=== PATIENT | female | born 1960 | race Caucasian/White ===

== ENCOUNTER → 2022-07-16 | Outpatient (CLI) | payer OTHER, SELFPAY ==
[2022-07-16 14:29] LABS: EXAGEN MAILED SPECIMEN
[2022-07-16 15:42] LABS: Absolute Lymphocyte Count 1.44 X10^3/uL (0.83-4.51); Absolute Neutrophil Count 2.2 X10^3/uL (2.0-7.7); Basophil# 0.03 X10^3/uL; Basophil% 0.7 % (0-1); Eosinophil# 0.16 X10^3/uL; Hematocrit 39.7 % (37-47); Hemoglobin 13.5 g/dL (12.0-15.0); Lymphocyte # 1.44 X10^3/ul (0.83-4.51); Lymphocyte % 35.7 % (19-41); Mean Corpuscular Hgb 30.1 pg (27.0-32.0); Mean Corpuscular Volume 88.6 fL (81-99); Mean Platelet Vol. 11.2 fl (6.2-12.0); Monocyte# 0.24 X10^3/uL; NRBC Flagged by Analyzer 0 % (0-5); Neutrophil # 2.15 X10^3/uL (2.7-7.7); Neutrophil % 53.4 % (47-70); Platelet Count 169 K/mm3 (150-450); RBC Distribution Width CV 11.9 % (11.6-14.6); RBC Distribution Width SD 38.5 fl (35.1-43.9); Red Blood Count 4.48 M/mm3 (4.2-5.4)
[2022-07-16 15:47] LABS: Prothrombin Time (Protime)PT. 12.8 SECONDS (11.7-14.9)
[2022-07-16 15:48] LABS: Partial Thromboplast Time 25.1 Seconds (24.1-36.2)
[2022-07-16 16:01] LABS: Erythrocyte Sedimentation Rate 11 mm/hr (0-30)
[2022-07-16 16:15] LABS: Color, Urine Yellow (Yellow); Glucose, Dipstick Normal (Normal); Ketone-Dipstick Negative (Negative); Leukocyte Esterase-Dipstick Negative /ul (Negative); Nitrite-Dipstick Negative (Negative); Occult Blood-Urine Negative /ul (Negative); Protein-Dipstick Negative (Negative); Urine Bilirubin Dipstick Negative (Negative); Urine Clarity Clear (Clear); Urine Urobilinogen Normal (Normal); Urine pH 6.5 (5.0 - 8.0)
[2022-07-16 16:32] LABS: ALB/GLOB Ratio 1.2 RATIO (0.9-2.4); AST(SGOT) 17 U/L (15-37); Alanine Aminotransfer ALT/SGPT 20 U/L (13-56); Albumin, Serum 3.8 g/dL (3.2-5.0); Alkaline Phosphatase 73 U/L (45-117); Anion Gap 7 (5-15); BUN 13 mg/dL (7-18); BUN/Creat Ratio 15.3 RATIO (10-20); CRP < 2.90 mg/L (0.0-3.0); Calcium,Total 9.3 mg/dL (8.5-10.1); Chloride 108 mmol/L (98-107); Creatinine, Serum 0.85 mg/dL (0.55-1.02); EST Glomerular Filtration Rate 72 mL/min (>60); Est Glom Filt Rate - Afr Amer 87 mL/min (>60); Globulin 3.2 g/dL (2.2-4.2); Glucose 97 mg/dL (74-106); Potassium 4.3 mmol/L (3.5-5.1); Protein, Urine (Random) < 6.0 mg/dL (<11.9); Sodium Level 140 mmol/L (136-145)
[2022-07-16 17:01] LABS: Hepatitis B Surface Antibody Reactive; Hepatitis B Surface Antigen Non-Reactive (Nonreactive); Hepatitis C Antibody Non-Reactive (Nonreactive)
[2022-07-18 17:07] LABS: Dilute Prothrombin Time (dPT) 41.8 sec (0.0-47.6); Hexagonal Phase Phospholipid 10 sec (0-11); Thrombin Time 16.6 sec (0.0-23.0); dPT Confirm Ratio 1.09 Ratio (0.00-1.34)
[2022-07-19 17:18] LABS: Thrombin Time 16.6 sec (0.0-23.0)
[2022-07-19 17:22] LABS: Interpretation Comment: (.); PTT-LA 41.1 sec (0.0-43.5)
== END | disposition home or self-care (01) ==
PROVIDERS: PCP Family Medicine; Referring Provider Internal Medicine Rheumatology; Visit Provider Internal Medicine Rheumatology
DX: M06.4 Inflammatory polyarthropathy (principal); R76.8 Other specified abnormal immunological findings in serum
CPT/HCPCS: 36415; 80053; 81002; 82570; 84156; 85025; 85598; 85610; 85652; 85670; 85730; 86140; 86706; 86803; 87340

== ENCOUNTER 2025-01-18 07:46 | Emergency (ER) | payer MEDICARE, OTHER, SELFPAY ==
[2025-01-18 07:47] VITALS: BP 185/77; PULSE 81; RESP 18; TEMP 36.6; O2SAT 100
--- NOTE | 2025-01-18 08:06 | EX.ED.DYSGE1 ---
HPI History of Present Illness Chief Complaint: Nausea/Vomiting Narrative Narrative: 64-year-old female past medical history of of diverticulosis and gastroparesis/irritable bowel presents with nausea and vomiting that she has had since 430 yesterday evening. Her partner states that she made dinner last night and used olive oil mixed with vegetables. They state that sometimes greasy foods can set off her gastroparesis. She has had multiple episodes of emesis and is now currently dry heaving. She states she is not having any abdominal pain, and she had a large bowel movement earlier, no diarrhea, no fevers or chills. She is extremely nauseated. She has ondansetron at home which is ineffective in treating her nausea. No exacerbating or alleviating factors. She states she has had to go to the emergency department previously when she lived in [place] and has received Haldol in the past. That has been helpful to her. She has not established with any primary care provider in the area as of yet. She presents mainly because of the nausea and dry heaving. She denies any chest pain or shortness of breath or other symptoms. [facility] Medical History Right shoulder pain Home Medications ?Medication ?Instructions ?Recorded ?Last Taken ?Type escitalopram oxalate 20 mg tablet 20 mg PO DAILY 10/07/23 Unknown History (Lexapro) hydroxychloroquine 200 mg tablet 200 mg PO DAILY 10/07/23 Unknown History (Plaquenil) hydroxyzine HCl 10 mg tablet 10 mg PO ONCE 10/07/23 Unknown History levothyroxine 88 mcg capsule 88 mcg PO DAILY 10/07/23 Unknown History losartan 25 mg tablet 25 mg PO DAILY 10/07/23 Unknown History promethazine 25 mg rectal 25 mg IN Q6H PRN nausea and 01/18/25 Unknown Rx suppository vomiting #12 ea Allergy/AdvReac Type Severity Reaction Status Date / Time clindamycin AdvReac Other Verified 01/18/25 07:49 Penicillins AdvReac Other Verified 01/18/25 07:49 Sulfa (Sulfonamide AdvReac Other Verified 01/18/25 07:49 Antibiotics) Family History Father Hypertension CVA (cerebral vascular accident) Myocardial infarction Arthritis Mother Arthritis Cancer Sister Hypertension Arthritis Cancer Surgical History H/O thumb surgery H/O wrist surgery Social History household members: significant other Smoking Status: Former smoker alcohol intake: never what type of physical activity do you participate in: walking ROS ROS ED ROS Narrative Review of systems positive for nausea, vomiting, and dry heaving. No fevers or chills, no problems with bowel movements, no diarrhea. No hematemesis. EXAM Physical Exam Narrative Exam Narrative: Afebrile. Vital signs noted. Nontoxic-appearing. Cardiovascular examination reveals a regular rate and rhythm. Positive murmur. Lungs clear to auscultation bilaterally. Abdomen is soft and nontender without guarding or rebound. Positive bowel sounds. Neurological examination nonfocal, nonlateralizing. Slightly tacky mucous membranes orally. Const Vital Signs: 01/18/25 07:47 01/18/25 10:09 01/18/25 12:46 Temperature 97.9 F 98.8 F Temperature Source Temporal Oral Pulse Rate 81 77 97 Respiratory Rate 18 14 Blood Pressure 185/77 H 182/71 H 158/73 H Blood Pressure Mean 113 108 101 Pulse Ox 100 97 Oxygen Delivery Method Room Air Room Air MDM MDM MDM Narrative Medical decision making narrative: The differential diagnosis includes but not limited to gastroparesis versus irritable bowel syndrome versus pancreatitis versus diverticulitis versus bowel obstruction. History and physical does not support bowel obstruction. I do not feel that she needs any imaging currently. With concern for dehydration, she will be bolused normal saline and CBC, CMP, and lipase will be checked to help rule out pancreatitis. I reviewed her laboratory work and she has normal white count of 6.7 with hemoglobin 14.8, hematocrit 41.5, platelet count 248. CMP is significant for slightly elevated anion gap with BUN of 20 and creatinine 0.93. Glucose slightly elevated at 209. No think she has diabetic ketoacidosis. AST slightly elevated at 39 with ALT at 41 and alk phos 120 which may be from her vomiting. Lipase is normal at 32 so I doubt pancreatitis. She is not having abdominal pain so I do not feel that imaging is indicated. She states this feels more like her gastroparesis with continued nausea. Through shared decision making initially she was administered ondansetron intravenously which was not helpful. She was then administered 2 mg of Ativan which helped slightly. She was then administered Benadryl and chlorpromazine. Upon repeat examination, she has no dry heaving. She feels well enough to be discharged. I discussed with her other antiemetics that she only has ondansetron, and she would like Phenergan suppositories. She was referred back to her primary care provider and to gastroenterology. She and her partner are agreeable to discharge and strict return instructions were reviewed. She is motivated for discharge. Disposition is discharged home in stable condition. History & Record Review Discussion w/independent historian: Patient and Significant other (Partner) Additional record(s) reviewed:: No prior records (No prior ED visits, seen by orthopedics for shoulder pain.) Lab Data Attestation: I reviewed the patient's lab results. Labs: Laboratory Results - last 24 hr 01/18/25 08:22 WBC 6.7 RBC 5.02 Hgb 14.8 Hct 41.5 MCV 82.7 MCH 29.5 MCHC 35.7 RDW Std Deviation 39.6 RDW Coeff of Jaimie 13.2 Plt Count 248 MPV 10.1 Immature Gran % (Auto) 0.500 Neut % (Auto) 89.8 H Lymph % (Auto) 6.9 L Bullock % (Auto) 2.6 Eos % (Auto) 0.0 Baso % (Auto) 0.2 Absolute Neuts (auto) 6.0 Absolute Lymphs (auto) 0.46 L Nucleated RBC % 0 Sodium 141 Potassium 4.0 Chloride 98 Carbon Dioxide 22.5 Anion Gap 20 H BUN 20 H Creatinine 0.93 Est GFR (MDRD) Non-Af 69 BUN/Creatinine Ratio 21.9 H Glucose 209 H Calcium 10.3 Total Bilirubin 0.43 AST 39 H ALT 41 H Alkaline Phosphatase 120 H Total Protein 8.3 Albumin 5.0 H Globulin 3.3 Albumin/Globulin Ratio 1.5 Lipase 32 Discharge Plan Triage Chief Complaint: Nausea/Vomiting ED Provider: Ulysses Christian Dx/Rx/DC Orders Clinical Impression: Nausea and vomiting, Gastroparesis Instructions: Gastroparesis, ED Vomiting (Adult) Prescriptions: New promethazine 25 mg suppository 25 mg IN Q6H PRN (Reason: nausea and vomiting) Qty: 12 0RF No Action escitalopram oxalate [Lexapro] 20 mg tablet 20 mg PO DAILY losartan 25 mg tablet 25 mg PO DAILY levothyroxine 88 mcg capsule 88 mcg PO DAILY hydroxyzine HCl 10 mg tablet 10 mg PO ONCE hydroxychloroquine [Plaquenil] 200 mg tablet 200 mg PO DAILY Primary Care Provider: Sabine Power Referrals: Tomas Marroquin DO [Med Staff - Active Staff] - As soon as possible Sabine Power, PA-C [Primary Care Provider] - As soon as possible Activity Restrictions/Additional Instructions: Phenergan suppositories as directed. Return with abdominal pain, fever, new or worsening symptoms. Follow-up with gastroenterology as soon as possible. Print Language: Pashto Disposition Disposition: Home, Self Care
[2025-01-18] MEDS: 0.9% Normal Saline (1000mL) 1,000 ML 1000 ML IV (08:20)
[2025-01-18 08:44] LABS: Hematocrit 41.5 % (37-47); Hemoglobin 14.8 g/dL (12.0-15.0); Immature Granulocytes Count 0.030 X10^3/uL (0.0-0.0); Mean Corp Hgb Conc 35.7 g/dL (32-36); Mean Corpuscular Volume 82.7 fL (81-99); Mean Platelet Vol. 10.1 fl (6.2-12.0); NRBC Flagged by Analyzer 0 % (0-5); POSITIVE DIFFERENTIAL YES; Platelet Count 248 K/mm3 (150-450); RBC Distribution Width CV 13.2 % (11.6-14.6); RBC Distribution Width SD 39.6 fl (35.1-43.9); Red Blood Count 5.02 M/mm3 (4.2-5.4); White Blood Count 6.7 K/mm3 (4.4-11.0)
--- OUTSIDE RECORDS SUMMARY | 2025-01-18 09:19 | XMS RPT_ITS | CCD ---
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 NIH Publication No. 01-3305. 2. An International Atherosclerosis Society position paper: global recommendations for the management of dyslipidemia: executive summary, Atherosclerosis. 2014: 232(2):410-413. Cholesterol in VLDL [Mass/Vol] 15 mg/dL NINF - 30 mg/dL [facility] Cholesterol non HDL [Mass/Vol] 77 mg/dL NINF - 130 mg/dL [facility] Comment on above: <130 mg/dL, Optimal 130-159 mg/dL, Near optimal/above optimal 160-189 mg/dL, Borderline high 190-219 mg/dL, High >219 mg/dL, Very high Secondary prevention optimal non HDL Cholesterol levels are recommended to be <100 mg/dL Cholesterol.total/Chol esterol in HDL [Mass ratio] 2.45 {ratio} NINF - 5.10 [facility] Fasting Time 6 hrs [facility] Comment on above: pt had cup of coffee w/ milk around 10am Triglyceride [Mass/Vol] 107 mg/dL NINF - 150 mg/dL [facility] Comment on above: <150 mg/dL, Normal 150-199 mg/dL, Borderline high 200-499 mg/dL, High >499 mg/dL, Very high NT PRO BNPon 12-30-2024 Natriuretic peptide.B prohormone N-Terminal [Mass/Vol] 388 pg/mL High [facility] - 125 pg/mL [facility] No Panel Informationon 12-30 Interpretation and review of laboratory results Normal [facility] Interpretation and review of laboratory results Abnormal [facility] THYROID STIMULATING HORMONEo n 12-30-2024 TSH Qn 0.804 m[IU]/L [facility] CBC W Auto Differential pane l (Bld)on 12-29-2024 Basophils (Bld) [#/Vol] 0.06 10*3/uL [facility] Basophils/100 WBC (Bld) 1 % [facility] Differential cell count method Nom (Bld) Auto [facility] Eosinophils (Bld) [#/Vol] 0.22 10*3/uL [facility] Eosinophils/100 WBC (Bld) 3.6 % [facility] Erythrocyte distribution width (RBC) [Ratio] 13.1 % 11.5 - 15.0 % [facility] Hematocrit (Bld) [Volume fraction] 40.7 % 36.0 - 46.0 % [facility] Hemoglobin (Bld) [Mass/Vol] 14 g/dL 11.5 - 15.5 g/dL [facility] Immature granulocytes (Bld) [#/Vol] [facility] Immature granulocytes/100 WBC (Bld) 0.3 % [facility] Lymphocytes (Bld) [#/Vol] 1.55 10*3/uL [facility] Lymphocytes/100 WBC (Bld) 25.2 % [facility] MCH (RBC) [Entitic mass] 28.7 pg 26.0 - 34.0 pg [facility] MCHC (RBC) [Mass/Vol] 34.4 g/dL 30.5 - 36.0 g/dL [facility] MCV (RBC) [Entitic vol] 83.6 fL 80.0 - 100.0 fL [facility] Monocytes (Bld) [#/Vol] 0.33 10*3/uL [facility] Monocytes/100 WBC (Bld) 5.4 % [facility] Neutrophils (Bld) [#/Vol] 3.96 10*3/uL [facility] Neutrophils/100 WBC (Bld) 64.5 % [facility] Nucleated RBC (Bld) [#/Vol] NINF [facility] Nucleated RBC/100 WBC (Bld) [Ratio] 0 % /100 WBC [facility] Platelet mean volume (Bld) [Entitic vol] 10.1 fL 9.0 - 12.7 fL [facility] Platelets (Bld) [#/Vol] 197 10*3/uL [facility] RBC (Bld) [#/Vol] 4.87 10*6/uL 3.90 - 5.2 0 m/uL [facility] WBC (Bld) [#/Vol] 6.14 10*3/uL [facility] Basophils (Bld) [#/Vol] 0.06 10*3/uL Normal <0.11 [facility] Comment on above: Order Comment: Speci men Type: BLOOD SPECIMEN Ordering Facility: [facility] Address: [address] [place] [address] Performed By: #### 5 7021-8 #### [facility] CLIA [id number] [address] [place] [address] [place] Basophils/100 WBC (Bld) 1.0 % Normal [facility] Comment on above: Order Comment: Speci men Type: BLOOD SPECIMEN Ordering Facility: [facility] Address: [address] [place] [address] Performed By: #### 5 7021-8 #### [facility] CLIA [id number] [address] [place] [address] [place] Differential cell count method Nom (Bld) Auto Normal [facility] Comment on above: Order Comment: Speci men Type: BLOOD SPECIMEN Ordering Facility: [facility] Address: [address] [place] [address] Performed By: #### 5 7021-8 #### [facility] CLIA [id number] [address] [place] [address] [place] Eosinophils (Bld) [#/Vol] 0.22 10*3/uL Normal <0.46 [facility] Comment on above: Order Comment: Speci men Type: BLOOD SPECIMEN Ordering Facility: [facility] Address: [address] [place] [address] Performed By: #### 5 7021-8 #### [facility] CLIA [id number] [address] [place] [address] [place] Eosinophils/100 WBC (Bld) 3.6 % Normal [facility] Comment on above: Order Comment: Speci men Type: BLOOD SPECIMEN Ordering Facility: [facility] Address: [address] [place] [address] Performed By: #### 5 7021-8 #### [facility] CLIA [id number] [address] [place] [address] [place] Erythrocyte distribution width (RBC) [Ratio] 13.1 % Normal 11.5-15.0 [facility] Comment on above: Order Comment: Speci men Type: BLOOD SPECIMEN Ordering Facility: [facility] Address: [address] [place] [address] Performed By: #### 5 7021-8 #### [facility] CLIA [id number] [address] [place] [address] [place] Hematocrit (Bld) [Volume fraction] 40.7 % Normal 36.0-46.0 [facility] Comment on above: Order Comment: Speci men Type: BLOOD SPECIMEN Ordering Facility: [facility] Address: [address] [place] [address] Performed By: #### 5 7021-8 #### [facility] CLIA [id number] [address] [place] [address] [place] Hemoglobin (Bld) [Mass/Vol] 14.0 g/dL Normal 11.5-15.5 [facility] Comment on above: Order Comment: Speci men Type: BLOOD SPECIMEN Ordering Facility: [facility] Address: [address] [place] [address] Performed By: #### 5 7021-8 #### [facility] CLIA [id number] [address] [place] [address] [place] Immature granulocytes (Bld) [#/Vol] 10*3/uL Normal <0.10 [facility] Comment on above: Order Comment: Speci men Type: BLOOD SPECIMEN Ordering Facility: [facility] Address: [address] [place] [address] Performed By: #### 5 7021-8 #### [facility] CLIA [id number] [address] [place] [address] [place] Immature granulocytes/100 WBC (Bld) 0.3 % Normal [facility] Comment on above: Order Comment: Speci men Type: BLOOD SPECIMEN Ordering Facility: [facility] Address: [address] [place] [address] Performed By: #### 5 7021-8 #### [facility] CLIA [id number] [address] [place] [address] [place] Lymphocytes (Bld) [#/Vol] 1.55 10*3/uL Normal 1.00-4.00 [facility] Comment on above: Order Comment: Speci men Type: BLOOD SPECIMEN Ordering Facility: [facility] Address: [address] [place] [address] Performed By: #### 5 7021-8 #### [facility] CLIA [id number] [address] [place] [address] [place] Lymphocytes/100 WBC (Bld) 25.2 % Normal [facility] Comment on above: Order Comment: Speci men Type: BLOOD SPECIMEN Ordering Facility: [facility] Address: [address] [place] [address] Performed By: #### 5 7021-8 #### [facility] CLIA [id number] [address] [place] [address] [place] MCH (RBC) [Entitic mass] 28.7 pg Normal 26.0-34.0 [facility] Comment on above: Order Comment: Speci men Type: BLOOD SPECIMEN Ordering Facility: [facility] Address: [address] [place] [address] Performed By: #### 5 7021-8 #### [facility] CLIA [id number] [address] [place] [address] [place] MCHC (RBC) [Mass/Vol] 34.4 g/dL Normal 30.5-36.0 [facility] Comment on above: Order Comment: Speci men Type: BLOOD SPECIMEN Ordering Facility: [facility] Address: [address] [place] [address] Performed By: #### 5 7021-8 #### [facility] CLIA [id number] [address] [place] [address] [place] MCV (RBC) [Entitic vol] 83.6 fL Normal 80.0-100.0 [facility] Comment on above: Order Comment: Speci men Type: BLOOD SPECIMEN Ordering Facility: [facility] Address: [address] [place] [address] Performed By: #### 5 7021-8 #### [facility] CLIA [id number] [address] [place] [address] [place] Monocytes (Bld) [#/Vol] 0.33 10*3/uL Normal <0.87 [facility] Comment on above: Order Comment: Speci men Type: BLOOD SPECIMEN Ordering Facility: [facility] Address: [address] [place] [address] Performed By: #### 5 7021-8 #### [facility] CLIA [id number] [address] [place] [address] [place] Monocytes/100 WBC (Bld) 5.4 % Normal [facility] Comment on above: Order Comment: Speci men Type: BLOOD SPECIMEN Ordering Facility: [facility] Address: [address] [place] [address] Performed By: #### 5 7021-8 #### [facility] CLIA [id number] [address] [place] [address] [place] Neutrophils (Bld) [#/Vol] 3.96 10*3/uL Normal 1.45-7.50 [facility] Comment on above: Order Comment: Speci men Type: BLOOD SPECIMEN Ordering Facility: [facility] Address: [address] [place] [address] Performed By: #### 5 7021-8 #### [facility] CLIA [id number] [address] [place] [address] [place] Neutrophils/100 WBC (Bld) 64.5 % Normal [facility] Comment on above: Order Comment: Speci men Type: BLOOD SPECIMEN Ordering Facility: [facility] Address: [address] [place] [address] Performed By: #### 5 7021-8 #### [facility] CLIA [id number] [address] [place] [address] [place] Nucleated RBC (Bld) [#/Vol] 10*3/uL Normal <0.01 [facility] Comment on above: Order Comment: Speci men Type: BLOOD SPECIMEN Ordering Facility: [facility] Address: [address] [place] [address] Performed By: #### 5 7021-8 #### [facility] CLIA [id number] [address] [place] [address] [place] Nucleated RBC/100 WBC (Bld) [Ratio] 0.0 /100 WBC Normal [facility] Comment on above: Order Comment: Speci men Type: BLOOD SPECIMEN Ordering Facility: [facility] Address: [address] [place] [address] Performed By: #### 5 7021-8 #### [facility] CLIA [id number] [address] [place] [address] [place] Platelet mean volume (Bld) [Entitic vol] 10.1 fL Normal 9.0-12.7 [facility] Comment on above: Order Comment: Speci men Type: BLOOD SPECIMEN Ordering Facility: [facility] Address: [address] [place] [address] Performed By: #### 5 7021-8 #### [facility] CLIA [id number] [address] [place] [address] [place] Platelets (Bld) [#/Vol] 197 10*3/uL Normal 150-400 [facility] Comment on above: Order Comment: Speci men Type: BLOOD SPECIMEN Ordering Facility: [facility] Address: [address] [place] [address] Performed By: #### 5 7021-8 #### [facility] CLIA [id number] [address] [place] [address] [place] RBC (Bld) [#/Vol] 4.87 10*6/uL Normal 3.90-5.20 [facility] Comment on above: Order Comment: Speci men Type: BLOOD SPECIMEN Ordering Facility: [facility] Address: [address] [place] [address] Performed By: #### 5 7021-8 #### [facility] CLIA [id number] [address] [place] [address] [place] WBC (Bld) [#/Vol] 6.14 10*3/uL Normal 3.70-11.00 [facility] Comment on above: Order Comment: Speci men Type: BLOOD SPECIMEN Ordering Facility: [facility] Address: [address] [place] [address] Performed By: #### 5 7021-8 #### [facility] CLIA [id number] [address] [place] [address] [place] CNOVon 12-29-2024 CNOV Office Visit (DIEGO PINA MAI) ARIEL NGUYEN ([id number]) 1960 F Date Time Provider Department 12/29/24 1:15 PM [facility] During your visit today, we recorded the following information about you: Pulse Blood pressure Weight Height 61/minute 126/64 85.3 kg 1.676 m Jacqueline Godwin MD 01/02/2025 3:50 PM Signed [facility] SECTION OF HEART FAILURE and CARDIAC TRANSPLANT MEDICINE OUTPATIENT VISIT DATE December 29, 2024 OUTPATIENT VISIT TYPE New Patient PRIMARY CARE PHYSICIAN: Sabine Power ([facility]) [address] [facility] [address] [place] [address] CHIEF COMPLAINT: Establish care Ariel Nguyen is a 64 year old female from [place], [place], accompanied by her partner. PMHx includes chronic diastolic HF, CAD, NSTEMI s/p CABGx3 08/12/2024 (KOCH-LAD, SVG-RI, SVG-OM), severe MR, HTN, RHONDA with CPAP Was there a cardiac hospitalization/ED visit in the past year: Yes: When and where[place]09[place] [facility] [place] [facility] HF Nursing Assessment: Chest Pain: no Skipping or irregular heartbeats: yes Shortness of breath at rest: yes Shortness of breath with activity: yes Cough: no Waking up in the middle of the night gasping for air: no Lightheadedness or dizziness: every now and then Feeling like you are going to pass out: no Actually passing out: no Poor energy level: yes Unintentional weight gain: no Unintentional weight loss: no Swelling in your legs,feet, abdomen: no Filling up quickly when you eat: yes HISTORY OF PRESENT ILLNESS: The patient is a 64-year-old female with a history of NM, status post-CABG, and mitral valve regurgitation, presenting for evaluation of dyspnea and mitral valve regurgitation. The patient experienced an NM in July while at [place], [place], and underwent a triple CABG at [facility]. During the procedure, the mitral valve was not addressed due to insufficient severity. Postoperatively, she required a second surgery to repair a leaking graft. She was discharged in September and has not been hospitalized since but has visited the ED multiple times for dyspnea. She reports episodes of AFib following surgery. She reports persistent dyspnea since the surgery, exacerbated by minimal exertion such as climbing eight steps, leading to lightheadedness and a sensation of pressure in her eyes and ears. She denies orthopnea. She monitors her blood pressure daily, noting readings around 126/80 mmHg, with occasional elevations up to 156/93 mmHg in the mornings. She denies any history of diabetes. She experiences significant lower extremity edema if she misses her diuretic doses. She also reports abdominal distension and has a history of paracentesis post-surgery, which drained three liters of fluid. She has not missed any doses of her diuretics since leaving the [place]. She has a history of severe nausea and vomiting, which has improved since her cardiac surgery. She recently underwent a colonoscopy and endoscopy at [place], which were unremarkable. She denies any history of gastroparesis. She has a history of sleep apnea and uses a CPAP machine. She reports difficulty losing weight, currently weighing 188 lbs, and is taking Zepbound for weight management. She denies any history of diabetes or use of metformin. She is currently taking furosemide 40 mg daily and hydrochlorothiazide. She is not taking potassium supplements. PAST MEDICAL HISTORY Diagnosis Date Abdominal pain, other specified site Chronic diastolic HF (heart failure) (HCC) Coronary artery disease Hypertension Mitral regurgitation Nausea Obstructive sleep apnea PAST SURGICAL HISTORY Procedure Laterality Date COLPOSCOPY CERVIX UPPER/ADJACENT VAGINA Colposcopy CORONARY ARTERY BYPASS GRAFT ESOPHAGOGASTRODUODENOSC OPY TRANSORAL DIAGNOSTIC 10/13/2012 EGD LAPAROSCOPIC UTERINE NERVE ABLATION PAST SURGICAL HISTORY OF reconstructive surgery on thumb TONSILLECTOMY HX SOCIAL HISTORY Social History Tobacco Use Smoking status: Former Average packs/day: 1 pack/day for 17.0 years (17.0 ttl pk-yrs) Types: Cigarettes Start date: 05/30/2000 Smokeless tobacco: Never Substance Use Topics Alcohol use: Not 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 Normal [facility] Comprehensive metabolic 2000 panelon 12-29-2024 Albumin [Mass/Vol] 4.7 g/dL Normal 3.9-4.9 [facility] Comment on above: Order Comment: Speci men Type: BLOOD SPECIMEN Ordering Facility: [facility] Address: [address] [place] [address] Performed By: #### 5 5454-3 #### [facility] CLIA [id number] [address] [place] [address] [place] ALP [Catalytic activity/Vol] 137 U/L High 34-123 [facility] Comment on above: Order Comment: Speci men Type: BLOOD SPECIMEN Ordering Facility: [facility] Address: [address] [place] [address] Performed By: #### 5 5454-3 #### [facility] CLIA [id number] [address] [place] [address] [place] ALT [Catalytic activity/Vol] 37 U/L Normal 7-38 [facility] Comment on above: Order Comment: Speci men Type: BLOOD SPECIMEN Ordering Facility: [facility] Address: [address] [place] [address] Performed By: #### 5 5454-3 #### [facility] CLIA [id number] [address] [place] [address] [place] Anion gap [Moles/Vol] 17 mmol/L High 8-15 [facility] Comment on above: Order Comment: Speci men Type: BLOOD SPECIMEN Ordering Facility: [facility] Address: [address] [place] [address] Performed By: #### 5 5454-3 #### [facility] CLIA [id number] [address] [place] [address] [place] AST [Catalytic activity/Vol] 31 U/L Normal 13-35 [facility] Comment on above: Order Comment: Speci men Type: BLOOD SPECIMEN Ordering Facility: [facility] Address: [address] [place] [address] Performed By: #### 5 5454-3 #### [facility] CLIA [id number] [address] [place] [address] [place] Bilirubin [Mass/Vol] 0.5 mg/dL Normal 0.2-1.3 [facility] Comment on above: Order Comment: Speci men Type: BLOOD SPECIMEN Ordering Facility: [facility] Address: [address] [place] [address] Performed By: #### 5 5454-3 #### [facility] CLIA [id number] [address] [place] [address] [place] Calcium [Mass/Vol] 10.2 mg/dL Normal 8.5-10.2 [facility] Comment on above: Order Comment: Speci men Type: BLOOD SPECIMEN Ordering Facility: [facility] Address: [address] [place] [address] Performed By: #### 5 5454-3 #### [facility] CLIA [id number] [address] [place] [address] [place] Chloride [Moles/Vol] 95 mmol/L Low 98-107 [facility] Comment on above: Order Comment: Speci men Type: BLOOD SPECIMEN Ordering Facility: [facility] Address: [address] [place] [address] Performed By: #### 5 5454-3 #### [facility] CLIA [id number] [address] [place] [address] [place] CO2 [Moles/Vol] 24 mmol/L Normal 22-30 [facility] Comment on above: Order Comment: Speci men Type: BLOOD SPECIMEN Ordering Facility: [facility] Address: [address] [place] [address] Performed By: #### 5 5454-3 #### [facility] CLIA [id number] [address] [place] [address] [place] Creatinine [Mass/Vol] 0.86 mg/dL Normal 0.58-0.96 [facility] Comment on above: Order Comment: Romina joseph Type: BLOOD SPECIMEN Ordering Facility: [facility] Address: [address] [place] [address] Performed By: #### 5 5454-3 #### [facility] CLIA [id number] [address] [place] [address] [place] eGFRcr SerPlBld CKD-EPI 2020 76 mL/min/1.73m??? Normal >=60 [facility] Comment on above: Order Comment: Romina joseph Type: BLOOD SPECIMEN Ordering Facility: [facility] Address: [address] [place] [address] Result Comment: Cecy mated Glomerular Filtration Rate (eGFR) is calculated using the 2020 CKD-EPI creatinine equation. This equation utilizes serum creatinine, sex, and age as parameters. The creatinine assay has traceable calibration to isotope dilution-mass spectrometry. Refer to KDIGO guidelines for clinical interpretation. In patients with unstable renal function, e.g. those with acute kidney injury, the eGFR may not accurately reflect actual GFR. Performed By: #### 5 5454-3 #### [facility] CLIA [id number] [address] [place] [address] [place] Glucose [Mass/Vol] 87 mg/dL Normal 74-99 [facility] Comment on above: Order Comment: Romina joseph Type: BLOOD SPECIMEN Ordering Facility: [facility] Address: [address] [place] [address] Result Comment: The [place] Diabetes Association (ADA) provides guidance for cutoff values for fasting glucose and random glucose. The ADA defines fasting as no caloric intake for at least 8 hours. Fasting plasma glucose results between 100 to 125 mg/dL indicate increased risk for diabetes (prediabetes). Fasting plasma glucose results greater than or equal to 126 mg/dL meet the criteria for diagnosis of diabetes. In the absence of unequivocal hyperglycemia, results should be confirmed by repeat testing. In a patient with classic symptoms of hyperglycemia or hyperglycemic crisis, random plasma glucose results greater than or equal to 200 mg/dL meet the criteria for diagnosis of diabetes. Reference: Standards of Medical Care in Diabetes 2016, [place] [employer]. Diabetes Care. 2016.39(Suppl 1). Performed By: #### 5 5454-3 #### [facility] CLIA [id number] [address] [place] [address] [place] Potassium [Moles/Vol] 3.6 mmol/L Low 3.7-5.1 [facility] Comment on above: Order Comment: Romina joseph Type: BLOOD SPECIMEN Ordering Facility: [facility] Address: [address] [place] [address] Performed By: #### 5 5454-3 #### [facility] CLIA [id number] [address] [place] [address] [place] Protein [Mass/Vol] 7.7 g/dL Normal 6.3-8.0 [facility] Comment on above: Order Comment: Meenakshii opal Type: BLOOD SPECIMEN Ordering Facility: [facility] Address: [address] [place] [address] Performed By: #### 5 5454-3 #### [facility] CLIA [id number] [address] [place] [address] [place] Sodium [Moles/Vol] 136 mmol/L Normal 136-144 [facility] Comment on above: Order Comment: Meenakshii men Type: BLOOD SPECIMEN Ordering Facility: [facility] Address: [address] [place] [address] Performed By: #### 5 5454-3 #### [facility] CLIA [id number] [address] [place] [address] [place] Urea nitrogen [Mass/Vol] 23 mg/dL High 7-21 [facility] Comment on above: Order Comment: Romina joseph Type: BLOOD SPECIMEN Ordering Facility: [facility] Address: [address] [place] [address] Performed By: #### 5 5454-3 #### [facility] CLIA [id number] [address] [place] [address] [place] Ferritin SerPl-mCncon 2024 Ferritin [Mass/Vol] 193.0 ng/mL Normal 14.7-205.1 [facility] Comment on above: Order Comment: Romina joseph Type: BLOOD SPECIMEN Ordering Facility: [facility] Address: [address] [place] [address] Performed By: #### 5 5454-3 #### [facility] CLIA [id number] [address] [place] [address] [place] HbA1c (Bld)on 12-29-2024 Average glucose Estimated from glycated hemoglobin (Bld) [Mass/Vol] 117 mg/dL Normal [facility] Comment on above: Order Comment: Romina joseph Type: BLOOD SPECIMEN Ordering Facility: [facility] Address: [address] [place] [address] Result Comment: eAG: (Estimated average glucose) is a calculated value from HgbA1c and is assisted sales representative of the average blood glucose level in the last 2-3 month period. Performed By: #### 5 5454-3 #### [facility] CLIA [id number] [address] [place] [address] [place] HbA1c (Bld) [Mass fraction] 5.7 % High 4.3-5.6 [facility] Comment on above: Order Comment: Romina joseph Type: BLOOD SPECIMEN Ordering Facility: [facility] Address: [address] [place] [address] Result Comment: Amer ican Diabetes Association guidelines indicate that patients with HgbA1c in the range 5.7-6.4% are at increased risk for development of diabetes, and intervention by lifestyle modification may be beneficial. HgbA1c greater or equal to 6.5% is considered diagnostic of diabetes. Performed By: #### 5 5454-3 #### [facility] CLIA [id number] [address] [place] [address] [place] Iron and Iron binding capaci ty panelon 12-29-2024 Iron [Mass/Vol] 71 ug/dL Normal 41-186 [facility] Comment on above: Order Comment: Speci men Type: BLOOD SPECIMEN Ordering Facility: [facility] Address: [address] [place] [address] Performed By: #### 5 5454-3 #### [facility] CLIA [id number] [address] [place] [address] [place] Iron binding capacity [Mass/Vol] 289 ug/dL Normal 232-386 [facility] Comment on above: Order Comment: Speci men Type: BLOOD SPECIMEN Ordering Facility: [facility] Address: [address] [place] [address] Performed By: #### 5 5454-3 #### [facility] CLIA [id number] [address] [place] [address] [place] Iron/TIBC [Molar ratio] 24.6 % Normal 15.0-57.0 [facility] Comment on above: Order Comment: Speci men Type: BLOOD SPECIMEN Ordering Facility: [facility] Address: [address] [place] [address] Performed By: #### 5 5454-3 #### [facility] CLIA [id number] [address] [place], [place] [address] [place] Lipid 1996 panelon Cholesterol [Mass/Vol] 130 mg/dL Normal <200 [facility] Comment on above: Order Comment: Speci men Type: BLOOD SPECIMEN Ordering Facility: [facility] Address: [address] [place] [address] Result Comment: <200 mg/dL, Desirable 200-239 mg/dL, Borderline high >239 mg/dL, High Performed By: #### 5 5454-3 #### [facility] CLIA [id number] [address] [place] [address] Cholesterol in HDL [Mass/Vol] 53 mg/dL Normal >39 [facility] Comment on above: Order Comment: Romina joseph Type: BLOOD SPECIMEN Ordering Facility: [facility] Address: [address] [place] [address] Result Comment: 40-5 9 mg/dL, Acceptable >59 mg/dL, High: Negative risk factor for coronary heart disease <40 mg/dL, Low: Positive risk factor for coronary heart disease Performed By: #### 5 5454-3 #### [facility] IA [id number] [address] [place] [address] Cholesterol in LDL [Mass/Vol] 57 mg/dL Normal <100 [facility] Comment on above: Order Comment: Romina joseph Type: BLOOD SPECIMEN Ordering Facility: [facility] Address: [address] [place] [address] Result Comment: <100 mg/dL, Optimal 100-129 mg/dL, Near optimal/above optimal 130-159 mg/dL, Borderline high 160-189 mg/dL, High >189 mg/dL, Very high Secondary prevention optimal LDL Cholesterol levels are recommended to be <70 mg/dL LDL cholesterol is calculated using the Lora-NIH equation. Performed By: #### 5 5454-3 #### [facility] [place] [id number] [address] [place] [address] OF [facility] Cholesterol in LDL/Cholesterol in HDL [Mass ratio] 1.08 {ratio} Normal <2.54 [facility] Comment on above: Order Comment: Romina opal Type: BLOOD SPECIMEN Ordering Facility: [facility] Address: [address] [place] [address] Result Comment: Madeleine castañeda: 1. National Cholesterol Education Program ATP III Guideline At-A-Glance Quick Desk Reference: National Heart, Lung, and Blood Viper. National Institutes of Health. 2001: NIH Publication No. 01-3305. 2. An International Atherosclerosis Society position paper: global recommendations for the management of dyslipidemia: executive summary, Atherosclerosis. 2014: 232(2):410-413. Performed By: #### 5 5454-3 #### [facility] CLIA [id number] [address] [place] [address] [place] Cholesterol in VLDL [Mass/Vol] 15 mg/dL Normal <30 [facility] Comment on above: Order Comment: Speci men Type: BLOOD SPECIMEN Ordering Facility: [facility] Address: [address] [place] [address] Performed By: #### 5 5454-3 #### [facility] CLIA [id number] [address] [place] [address] [place] Cholesterol non HDL [Mass/Vol] 77 mg/dL Normal <130 [facility] Comment on above: Order Comment: Meenakshii men Type: BLOOD SPECIMEN Ordering Facility: [facility] Address: [address] [place] [address] Result Comment: <130 mg/dL, Optimal 130-159 mg/dL, Near optimal/above optimal 160-189 mg/dL, Borderline high 190-219 mg/dL, High >219 mg/dL, Very high Secondary prevention optimal non HDL Cholesterol levels are recommended to be <100 mg/dL Performed By: #### 5 5454-3 #### [facility] CLIA [id number] [address] [place] [address] [place] Cholesterol.total/Chol esterol in HDL [Mass ratio] 2.45 {ratio} Normal <5.10 [facility] Comment on above: Order Comment: Speci men Type: BLOOD SPECIMEN Ordering Facility: [facility] Address: [address] [place] [address] Performed By: #### 5 5454-3 #### [facility] CLIA [id number] [address] [place], [place] [address] [place] FASTING TIME 6 hrs Normal [facility] Comment on above: Order Comment: Speci men Type: BLOOD SPECIMEN Ordering Facility: [facility] Address: [address] [place] [address] Result Comment: pt h ad cup of coffee w/ milk around 10am Performed By: #### 5 5454-3 #### [facility] CLIA [id number] [address] [place] [address] [place] Triglyceride [Mass/Vol] 107 mg/dL Normal <150 [facility] Comment on above: Order Comment: Speci men Type: BLOOD SPECIMEN Ordering Facility: [facility] Address: [address] [place] [address] Result Comment: <150 mg/dL, Normal 150-199 mg/dL, Borderline high 200-499 mg/dL, High >499 mg/dL, Very high Performed By: #### 5 5454-3 #### [facility] CLIA [id number] [address] [place] [address] [place] NT-proBNP SerPl-ncon 12-29 Natriuretic peptide.B prohormone N-Terminal [Mass/Vol] 388 pg/mL High <125 [facility] Comment on above: Order Comment: Speci men Type: BLOOD SPECIMEN Ordering Facility: [facility] Address: [address] [place] [address] Performed By: #### 5 5454-3 #### [facility] CLIA [id number] [address] [place] [address] [place] TSH SerPl-aCncon 12-29-2024 TSH Qn 0.804 m[IU]/L Normal 0.270-4.200 [facility] Comment on above: Order Comment: Speci men Type: BLOOD SPECIMEN Ordering Facility: [facility] Address: [address] [place] [address] Performed By: #### 5 5454-3 #### [facility] CLIA [id number] [address] [place] [address] [place] CBC + DIFFon 10-13-2023 Baso # 0.03 x10EE3/UL Normal 0.00 - 0.10 [facility] Comment on above: Performed By: #### 2 61851 #### [facility],[address] [place] [address] Basophils/100 WBC (Bld) 0.2 % Normal 0.0 - 2.0 [facility] Comment on above: Performed By: #### 2 08324 #### [facility],[address] [place] [address] CBC + DIFF Normal [facility] Comment on above: Result Comment: CBC- COMPLETE BLOOD COUNT Performed By: #### 2 49564 #### [place] [address] EO # 0.04 x10EE3/UL Normal 0.00 - 0.50 [facility] Comment on above: Performed By: #### 2 54489 #### [place] [address] Eosinophils/100 WBC (Bld) 0.3 % Normal 0.0 - 7.0 [facility] Comment on above: Performed By: #### 2 93681 #### [place] [address] Erythrocyte distribution width (RBC) [Ratio] 14.2 % Normal 12.0 - 15.6 [facility] Comment on above: Performed By: #### 2 82436 #### [place] [address] Hematocrit (Bld) [Volume fraction] 46.7 % High 34.0 - 46.0 [facility] Comment on above: Performed By: #### 2 33276 #### [place] [address] Hemoglobin (Bld) [Mass/Vol] 16.3 g/dL High 12.0 - 16.0 [facility] Comment on above: Performed By: #### 2 14090 #### [facility],[address] [place] [address] Lymph # 1.38 x10EE3/UL Normal 0.80 - 2.80 [facility] Comment on above: Performed By: #### 2 55598 #### [facility],[address] [place] [address] Lymphocytes/100 WBC (Bld) 10.5 % Low 20.0 - 45.0 [facility] Comment on above: Performed By: #### 2 40096 #### [facility],[address] [place] [address] MANUAL DIFF N/A Normal [facility] Comment on above: Performed By: #### 2 03733 #### [facility],[address] [place] [address] MCH (RBC) [Entitic mass] 30 pg Normal 27 - 33 [facility] Comment on above: Performed By: #### 2 00391 #### [facility],[address] [place] [address] MCHC 35 X10 3 Normal 32 - 36 [facility] Comment on above: Performed By: #### 2 02223 #### [facility],[address] [place] [address] MCV (RBC) [Entitic vol] 87 fL Normal 80 - 99 [facility] Comment on above: Performed By: #### 2 59289 #### [facility],[address] [place] [address] Gem # 0.83 x10EE3/UL Normal 0.20 - 1.00 [facility] Comment on above: Performed By: #### 2 36069 #### [place] [address] MONOS % 6.3 % Normal 0.0 - 10.0 [facility] Comment on above: Performed By: #### 2 45564 #### [facility],[address] [place] [address] Morphology Lavon (Bld) [Interp] N/A Normal [facility] Comment on above: Performed By: #### 2 94276 #### [facility],[address] [place] [address] Neut # 10.95 x10EE3/UL High 1.50 - 7.10 [facility] Comment on above: Performed By: #### 2 94529 #### [facility],[address] [place] [address] Neutrophils/100 WBC (Bld) 82.7 % High 46.0 - 76.0 [facility] Comment on above: Performed By: #### 2 48783 #### [place] [address] PLATELET 195 x10EE3/UL Normal 150 - 450 [facility] Comment on above: Performed By: #### 2 97551 #### [place] [address] Platelet mean volume (Bld) [Entitic vol] 9.4 fL Normal 6.6 - 10.5 [facility] Comment on above: Result Comment: AUTO MATED DIFFERENTIAL Performed By: #### 2 92762 #### [facility],[address] [place], [place] [address] RBC 5.37 x 10EE6/UL High 4.10 - 5.30 [facility] Comment on above: Performed By: #### 2 37246 #### [facility],[address] [place], [place] [address] WBC 13.2 x 10EE3/UL High 4.5 - 10.8 [facility] Comment on above: Performed By: #### 2 50510 #### [facility],[address] [place] [address] CMP with eGFRon 10-13-2023 AGE 63 years Normal [facility] Comment on above: Performed By: #### 2 31937 #### [facility],[address] [place] [address]74 Albumin [Mass/Vol] 4.7 g/dL Normal 3.4 - 5.0 [facility] Comment on above: Performed By: #### 2 66026 #### [facility],[address] [place] [address] Albumin/Globulin [Mass ratio] 1.4 {ratio} Normal 0.9 - 1.6 [facility] Comment on above: Performed By: #### 2 01383 #### [facility],[address] [place] [address] ALK PHOS 80 U/L Normal 46 - 116 [facility] Comment on above: Performed By: #### 2 01376 #### [facility],[address] [place] [address]4537 ALT [Catalytic activity/Vol] 34 U/L Normal 16 - 63 [facility] Comment on above: Performed By: #### 2 86596 #### [facility],[address] [place] [address]31 Anion gap [Moles/Vol] 16 mmol/L Normal 10 - 20 [facility] Comment on above: Performed By: #### 2 93118 #### [facility],[address] [place] [address]49 AST [Catalytic activity/Vol] 34 U/L Normal 13 - 39 [facility] Comment on above: Performed By: #### 2 82482 #### [facility],[address] [place] [address] B/C RATIO 16 ratio Normal 0 - 30 [facility] Comment on above: Performed By: #### 2 52343 #### [facility],[address] [place] [address]57 Bilirubin [Mass/Vol] 0.8 mg/dL Normal 0.2 - 1.0 [facility] Comment on above: Performed By: #### 2 25786 #### [facility],[address] [place] [address]11 Calcium [Mass/Vol] 10.1 mg/dL Normal 8.5 - 10.1 [facility] Comment on above: Performed By: #### 2 23412 #### [facility],[address] [place] [address] 39180 Chloride [Moles/Vol] 99 mmol/L Normal 98 - 107 [facility] Comment on above: Performed By: #### 2 51510 #### [facility],[address] [place] [address] CMP with eGFR Normal [facility] Comment on above: Result Comment: COMP REHENSIVE METABOLIC PANEL Performed By: #### 2 76733 #### [facility],[address] [place] [address] CO2 [Moles/Vol] 21.6 mmol/L Normal 21.0 - 32.0 [facility] Comment on above: Performed By: #### 2 21728 #### [facility],[address] [place] [address] Creatinine [Mass/Vol] 0.77 mg/dL Normal 0.55 - 1.02 [facility] [place] [facility] Comment on above: Performed By: #### 2 65525 #### [facility],[address] [place] [address] GFR/1.73 sq M.predicted among non-blacks MDRD (S/P/Bld) [Vol rate/Area] mL/min/{1.73_m2} Normal 60 - 999 [facility] Comment on above: Performed By: #### 2 44728 #### [facility],[address] [place] [address] Result Comment: ACCO RDING TO THE NATIONAL KIDNEY DISEASE EDUCATION PROGRAM(NKDE), A NORMAL eGFR IS A VALUE GREATER THAN OR EQUAL TO 60 ML/MIN/1.73 SQ METERS. CHRONIC KIDNEY DISEASE: <60mL/MIN/1.73 SQ METERS KIDNEY FAILURE: <15mL/MIN/1.73 SQ METERS THIS TEST SHOULD ONLY BE USED FOR PATIENTS 18 YEARS OF AGE AND OLDER. Globulin (S) [Mass/Vol] 3.4 g/dL Normal 1.5 - 3.8 [facility] Comment on above: Performed By: #### 2 64049 #### [facility],[address] [place] [address] Glucose [Mass/Vol] 153 mg/dL High 74 - 106 [facility] Comment on above: Performed By: #### 2 96083 #### [facility],[address] [place] [address] Potassium [Moles/Vol] 4.0 mmol/L Normal 3.5 - 5.1 [facility] Comment on above: Performed By: #### 2 41513 #### [facility],[address] [place] [address]647 Protein [Mass/Vol] 8.1 g/dL Normal 6.4 - 8.2 [facility] Comment on above: Performed By: #### 2 49528 #### [facility],[address] [place] [address] Sodium [Moles/Vol] 133 mmol/L Low 136 - 145 [facility] Comment on above: Performed By: #### 2 75144 #### [facility],[address] [place] [address] Urea nitrogen [Mass/Vol] 12 mg/dL Normal 7 - 18 [facility] Comment on above: Performed By: #### 2 89556 #### [facility],[address] [place] [address] ABDOMEN/PELVIS [facility] 2023 CT ABDOMEN/PELVIS [place] [address] Patient: ARIEL NGUYEN Phone#: : 1960 Age: 63 Gender: F Pt. Type: ER Account: [id number] Location: 052 Ordering: NATACHA NOVA Exam Date: 10/13/2023/17:17 Family Phys: [employer] Charge Code: [id number] Physician: Dooly Order #: [id number] Dose#: [id number] PROCEDURE: CT ABDOMEN/PELVIS WITH CONTRAST COMPARISON: [facility], CT, ABDOMEN/PELVIS W CON, 09/23/2020, 20:34. INDICATIONS: Abdominal pain. TECHNIQUE: After obtaining the patient's consent, CT images were created with non-ionic intravenous contrast material. All CT scans at this facility use dose modulation, iterative reconstruction, and/or weight based dosing when appropriate to reduce radiation dose to as low as reasonably achievable. IV CONTRAST: Omnipaque 350,80ml TOTAL DOSE: 18.2 CTDIvol(mGy) FINDINGS: LIVER: Normal. No enlargement, atrophy, abnormal density, or significant focal lesion. BILIARY: Gallbladder is present. PANCREAS: Normal. No lesion, fluid collection, ductal dilatation, or atrophy. SPLEEN: Normal. No enlargement or focal lesion. KIDNEYS: Kidneys enhance and excrete contrast symmetrically. No hydronephrosis. ADRENALS: Normal. No mass or enlargement. AORTA/VASCULAR: No aortic aneurysm. There are scattered atherosclerotic calcifications of the aorta and branch vessels. RETROPERITONEUM: Normal. No mass or adenopathy. BOWEL/MESENTERY: No bowel obstruction or dilatation. No significant stool burden. Diverticulosis of the descending and sigmoid colon. Appendix is not visualized. ABDOMINAL WALL: Normal. No mass or hernia. URINARY BLADDER: Normal. No visible focal wall thickening, lesion, or calculus. PELVIC NODES: Normal. No adenopathy. PELVIC ORGANS: Uterus is absent. No adnexal mass. BONES: There is facet arthropathy in the lower lumbar spine. Grade 1 anterolisthesis of L4 on L5. Grade 1 retrolisthesis of L5 on S1. Disc height loss at L5-S1. Similar to prior. Continued Report - Page 2 of 2 Patient: ARIEL NGUYEN Phone#: : 1960 Age: 63 Gender: F Pt. Type: ER Account: [id number] Location: 052 Ordering: NATACHA NOVA Exam Date: 10/13/2023/17:17 Family Phys: SABINE POWER Charge Code: [id number] Physician: Dooly Order #: [id number] Dose#: [id number] LUNG BASES: Normal. No visible pulmonary or pleural disease. OTHER: Negative. CONCLUSION: 1. Diverticulosis 2. No acute intra-abdominal or pelvic abnormality. Dictated by: Naz Boyle MD on 10/13/2023 at 19:03 Approved by: Naz Boyle MD on 10/13/2023 at 19:11 Normal [facility] LIPASEon 10-13-2023 Lipase [Catalytic activity/Vol] 89.0 U/L High 15.0 - 78.0 [facility] Comment on above: Result Comment: *PLE ASE NOTE THAT RANGES FOR LIPASE HAVE CHANGED OF 05/30/23 DUE TO AN ASSAY UPDATE BY THE INFORMATICS PHARMACIST.THE NEW ASSAY RANGE IS 6-250 U/L, WITH A REFERENCE RANGE OF 16-77 U/L. Performed By: #### 2 29956 #### [facility],[address] [place] [address] Orthopedic Visit Reporton Orthopedic Visit Report [facility] [address] [place] [address] OFFICE VISIT Date of Service: 10/07/23 MR#: [id number] Acct: [id number] Name: ARIEL NGUYEN Rep #: [id number] : 1960 Provider: Dr. Vadim flores MD Age/Sex: 63/F [place] [facility] Status: Signed with Addenda ADDENDUM by Rosalia Valentino on 10/07/23 at 1418 Office Procedure Documentation entered by Rosalia Valentino 10/07/23 14:18: Ortho Injections Injections Yes Subacromial Injection Right Is this Buy Bill?: No Details: Obtained consent for injection. Under sterile conditions, injected the patients right subacromial shoulder with 2.0mL Kenalog and 4.0mL Bupivacaine. The patient tolerated the injection well without any noted complication. Patient should call our office if redness develops, pain worsens or if they have any concerns. Office Meds Kenalog 40 mg/mL suspension for injection Performing Provider: Vadim Montes MD Performing Location: [facility] Administered by: Vadim Montes MD on 10/07/23 14:16 Dose Route Admin Location Dispensed Lot Number Expiration Date COLE Severino ufacturer 80 mg intra-articular Right shoulder 2 mL [id number] 03/02/25 0416-3858-74 [facility] Date cc: * Signed Intake Vital Signs 10/07/23 13:26 Height 5 ft 6 in Weight: 193 lb BMI 31.1 Intake Visit Reasons: RIGHT SHOULDER Is patient in pain?: Yes Pain scale (1-10): 8 Allergies clindamycin Adverse Reaction (Verified 10/07/23 13:29) Other Penicillins Adverse Reaction (Verified 10/07/23 13:29) Other Sulfa (Sulfonamide Antibiotics) Adverse Reaction (Verified 10/07/23 13:29) Other Medications escitalopram oxalate 20 mg tablet (Lexapro) 20 mg PO DAILY 10/07/23 [History Confirmed 10/07/23] hydroxychloroquine 200 mg tablet (Plaquenil) 200 mg PO DAILY 10/07/23 [History Confirmed 10/07/23] hydroxyzine HCl 10 mg tablet 10 mg PO ONCE 10/07/23 [History Confirmed 10/07/23] levothyroxine 88 mcg capsule 88 mcg PO DAILY 10/07/23 [History Confirmed 10/07/23] losartan 25 mg tablet 25 mg PO DAILY 10/07/23 [History Confirmed 10/07/23] [facility] Medical History (Updated 10/07/23 @ 13:41 by Vadim Montes MD) Right shoulder pain Surgical History H/O thumb surgery H/O wrist surgery Family History Father Hypertension CVA (cerebral vascular accident) Myocardial infarction Arthritis Mother Arthritis Cancer Sister Hypertension Arthritis Cancer Social History household members: significant other Smoking Status: Former smoker alcohol intake: never what type of physical activity do you participate in: walking HPI RIGHT SHOULDER Details: This documentation accurately reflects the service provided and the decisions made by me, Dr. Vadim Montes MD 10/07/23 9980. Part of today???s visit was documented by [ ], acting as scribe. ARIEL NGUYEN is a 63 year old F here today for R shoulder pain, RHD, lateral side shoulder pain, worse at night, wakes up at night, worse over years, trying some rubs and gels. seemed to help. no surgeries, worse in abduction. Ortho Exam General General: Yes no acute distress Neurologic: Yes alert and Yes oriented x3 Psychologic: Yes reasonable and appropriate Right Shoulder Skin/Wound: Yes CDI, No ecchymosis, No erythema and No swelling Testing: Positive Hawkin's, Neer's, Speed's, TTP Biceps, TTP AC Joint, AROM-Forward Elevation 0-180, AROM-External Rotation at side 0-60, empty can, cross arm and belly press normal; Negative Drop Arm or scapular winging Internal Rotation: L2 SHOULDER: normal motor and sens to ax nerve, and MRU and AIN/PIN strength fe 4+, ER 5/5, normal bear hug Supplemental Info X-rays 4 views of the right shoulder obtained which demonstrates mild AC joint arthrosis. Glenohumeral joint space is well-maintained. No superior humeral head migration. Mild sclerosis of the greater tuberosity. Coding Level of Care Code Attention Mauricio Diagnoses Right shoulder pain M25.511 Comment 08459 and CPT inject major joint Assessment and Plan Assessment and Plan (1) Right shoulder pain: Status: Acute Plan: 63-year-old female with right shoulder pain atraumatic most likely rotator cuff tendinitis bursitis impingement syndrome partial rotator cuff tears biceps tears or other problems about the shoulder. Discussed the diagnosis prognosis different treatment options including but not limited to rest ice anti-inflammatories doing nothing to modifications medications subacromial steroid injections or surgery. Patient would like to proceed with a cortiso (more content not included)... Normal [facility] Shoulder min 2 Viewson 10-06 Shoulder min 2 Views [facility] [address] [place] [address] Shoulder min 2 Views MR#: [id number] Acct: [id number] Name: ARIEL NGUYEN Rep #: [id number] : 1960 F 63 From: Stephen jang MD PCP: Sabine [employer] PA-C Status: DEP AMB Study: Shoulder min 2 Views Date of Exam: 10/07/23 Exam# [id number] Ordering [place]: [place] [id number] STUDY: X-RAY - RIGHT SHOULDER REASON FOR EXAM: Female, 63 years old. pain TECHNIQUE: 4 view(s) of the shoulder. COMPARISON: None. FINDINGS: Normal glenohumeral articulation. Normal acromioclavicular joint. Normal acromion. Normal humeral head and visualized proximal humerus. The soft tissue structures are unremarkable. There is no demonstrated fracture. Normal visualized pulmonary apex. RAD/Shoulder min 2 Views IMPRESSION: Normal x-ray examination of the shoulder. Electronically Signed: Stephen Soler MD at 23:01 EDT , CC: CLARITZA Power; Dr. Vadim Montes MD Diet Kitchen Cook: Signed [facility] CV ECHO [facility] CV ECHO [place] [address] Patient: ARIEL NGUYEN Phone#: : 1960 Age: 63 Gender: F Pt. Type: Out Account: [id number] Location: [facility] Ordering: SABINE POWER Exam Date: 09/16/2023/10:20 Family Phys: Charge Code: [id number] Physician: Dooly Order #: [id number] Dose#: PROCEDURE: ECHOCARDIOGRAM WITH DOPPLER AND COLOR FLOW HISTORY: Patient is a 63-year-old female with history of mitral valve regurgitation INDICATIONS: MR COMPARISON: None. TECHNIQUE: A 2-D ultrasound, color spectral Doppler and M-mode evaluation of the heart and great vessels. PATIENT MEASUREMENTS: Height (in.): 66 BSA: 1.97 Weight (lbs.): 192 BP: 133/79 Gunnery/Ordnance Officer: SARIKA M MODE 2D MEASUREMENTS AND CALCULATIONS: LVIDd: 4.64 cm LVIDs: 2.58 cm IVSd: 1.16 cm LVPWd: 1.10 cm LVOT diam: 1.84 cm FS: 44.35 % Ao Root diam: 2.52 cm LA diam: 4.2 cm LA Volume Index: 47.9 mL/m2 LA A4 Area: 27.51 cm2 RA A4 Area: 12.7 cm2 RVDd: 3.12 cm TAPSE: 26 mm DOPPLER MEASUREMENTS AND CALCULATIONS MITRAL MV E MAX presley: 1.40 m/s MV A MAX presley: 1.34 m/s MV E-A ratio: 1.04 MVA VTI 48 cm MV V2 max: 1.45 m/sec MV max P.46 mm Hg MV V2 mean: 0.92 m/sec Continued Report - Page 2 of 3 Patient: ARIEL NGUYEN Phone#: : 1960 Age: 63 Gender: F Pt. Type: Out Account: [id number] Location: [facility] Ordering: [facility] Exam Date: 09/16/2023/10:20 Family Phys: Charge Code: [id number] Physician: Dooly Order #: [id number] Dose#: MV mean P.65 mm Hg MV V2 VTI: 48 cm MV PHT: 118 ms MVA PHT 1.9 cm2 Lat Peak E' Presley 4 cm/sec Septal Peak E' PRESLEY 7 cm/sec AORTIC Ao V2 max: 2.53 m/s Ao max P.53 mm[Hg] Ao V2 mean: 1.85 m/s Ao mean P.25 mm[Hg] Ao V2 VTI: 64.92 cm PEDRO LUIS (V Max): 2.45 cm2 PEDRO LUIS (VTI): 2.29 cm2 AI max presley 4.90 m/s AI max PG 95.98 mm[Hg] AI dec Gilpin 2.43 m/s2 AI PHT 585.74 ms LV V1 Max 2.32 m/s LV V1 Max PG 21.58 mm[Hg] LV V1 Mean PG 13.24 mm[Hg] LV V1 mean 1.74 m/s LV V1 VTI 55.64 cm PULMONIC PA V2 Max 0.93 m/s PA Max PG 3.44 mm[Hg] TRICUSPID TR Max Presley 2.68 m/s TR max PG 28.72 mm[Hg] RVSP 32 mm Hg 2D/M-MODE AND COLOR FLOW LEFT VENTRICLE: There is mild concentric left ventricular hypertrophy. Left ventricle is normal in size. Systolic ejection fraction is 55-60%. There are no regional wall motion abnormality seen. WALL MOTION: 1 - Basal anterior: Normal. 7 - Mid anterior: Normal. 13 - Apical anterior: Normal. 2 - Basal anteroseptal: Normal. 8 - Mid anteroseptal: Normal. 14 - Apical septal: Normal. 3 - Basal inferoseptal: Normal. 9 - Mid inferoseptal: Normal. 15 - Apical inferior: Normal. 4 - Basal inferior: Normal. 10-Mid inferior: Normal. 16 - Apical lateral: Normal. 5 - Basal inferolateral: Normal. 11-Mid inferolateral: Normal. 6 - Basal anterolateral: Normal. 12-Mid anterolateral: Normal. Continued Report - Page 3 of 3 Patient: ARIEL NGUYEN Phone#: : 1960 Age: 63 Gender: F Pt. Type: Out Account: [id number] Location: [facility] Ordering: [facility] Exam Date: 09/16/2023/10:20 Family Phys: Charge Code: [id number] Physician: Dooly Order #: [id number] Dose#: RIGHT VENTRICLE: Right ventricle is normal in size and systolic function. LEFT ATRIUM: Left atrium is moderately enlarged. RIGHT ATRIUM: Right atrium is normal in size. ATRIAL SEPTUM: There is no large interatrial shunt seen. PFO was not assessed. MITRAL VALVE: There is severe mitral annular calcification seen. Leaflets appear thickened. There is moderate eccentric mitral valve regurgitation and at most mild mitral valve stenosis. TRICUSPID VALVE: Tricuspid valve appears normal structure. There is trivial regurgitation and AORTIC VALVE: Aortic valve is trileaflet with sclerosis. There is mild aortic valve regurgitation and no stenosis seen. PULMONIC VALVE: Pulmonic valve is inadequately visualized. Doppler shows no significant regurgitation or stenosis. AORTIC ROOT: Aortic root is normal in size AORTIC ARCH: Inadequately visualized. DESC THORACIC AORTA: Inadequately visualized. IVC/SVC: IVC is normal in size with more than 50% collapse of inspiration. Estimated right atrial pressure is 3 mm Hg PULMONARY VEINS: Normal pulmonic vein PERICARDIUM: There is no pericardial effusion seen CONCLUSION: 1. There is mild concentric left ventricular hypertrophy. Left ventricle is normal in size. Systolic ejection fraction 55-60% with normal wall motion 2. Left atrium is moderately enlarged 3. There is severe mitral annular calcification seen. Leaflets appear thickened. There is moderate eccentric mitral valve regurgitation and mild mitral valve stenosis 4. Aortic valve is trileaflet with sclerosis. There is mild aortic valve regurgitation and no stenosis seen 5. (more content not included)... Normal [facility] CMP with eGFRon 09-10-2023 AGE 63 years Normal [facility] Comment on above: Performed By: #### 2 71944 #### [facility],[address] [place] [address] 31991 Albumin [Mass/Vol] 3.7 g/dL Normal 3.4 - 5.0 [facility] Comment on above: Performed By: #### 2 73160 #### [facility],[address] [place] [address] 70104 Albumin/Globulin [Mass ratio] 1.1 {ratio} Normal 0.9 - 1.6 [facility] Comment on above: Performed By: #### 2 37123 #### [facility],[address] [place] [address] 52620 ALK PHOS 86 U/L Normal 46 - 116 [facility] Comment on above: Performed By: #### 2 81133 #### [facility],[address] [place] [address] 87111 ALT [Catalytic activity/Vol] 35 U/L Normal 16 - 63 [facility] Comment on above: Performed By: #### 2 26708 #### [facility],[address] [place] [address] 67167 Anion gap [Moles/Vol] 14 mmol/L Normal 10 - 20 [facility] Comment on above: Performed By: #### 2 04781 #### [facility],[address] [place] [address] 65619 AST [Catalytic activity/Vol] 28 U/L Normal 13 - 39 [facility] Comment on above: Performed By: #### 2 16541 #### [facility],[address] [place] [address] 25489 B/C RATIO 9 ratio Normal 0 - 30 [facility] Comment on above: Performed By: #### 2 02452 #### [facility],[address] [place] [address] 70602 Bilirubin [Mass/Vol] 0.6 mg/dL Normal 0.2 - 1.0 [facility] Comment on above: Performed By: #### 2 07687 #### [facility],[address] [place] [address] 89226 Calcium [Mass/Vol] 9.1 mg/dL Normal 8.5 - 10.1 [facility] Comment on above: Performed By: #### 2 40712 #### [facility],[address] [place] [address] 86476 Chloride [Moles/Vol] 106 mmol/L Normal 98 - 107 [facility] Comment on above: Performed By: #### 2 90791 #### [facility],[address] [place] [address] 94243 CMP with eGFR Normal [facility] Comment on above: Result Comment: COMP REHENSIVE METABOLIC PANEL Performed By: #### 2 22052 #### [facility],[address] [place] [address] 37977 CO2 [Moles/Vol] 27.6 mmol/L Normal 21.0 - 32.0 [facility] Comment on above: Performed By: #### 2 17320 #### [facility],[address] [place] [address] 31793 Creatinine [Mass/Vol] 0.89 mg/dL Normal 0.55 - 1.02 [facility] [place] [facility] Comment on above: Performed By: #### 2 36628 #### [facility],[address] [place] [address] 32706 GFR/1.73 sq M.predicted among non-blacks MDRD (S/P/Bld) [Vol rate/Area] mL/min/{1.73_m2} Normal 60 - 999 [facility] Comment on above: Performed By: #### 2 36089 #### [facility],[address] [place] [address] Result Comment: ACCO RDING TO THE NATIONAL KIDNEY DISEASE EDUCATION PROGRAM(NKDE), A NORMAL eGFR IS A VALUE GREATER THAN OR EQUAL TO 60 ML/MIN/1.73 SQ METERS. CHRONIC KIDNEY DISEASE: <60mL/MIN/1.73 SQ METERS KIDNEY FAILURE: <15mL/MIN/1.73 SQ METERS THIS TEST SHOULD ONLY BE USED FOR PATIENTS 18 YEARS OF AGE AND OLDER. Globulin (S) [Mass/Vol] 3.3 g/dL Normal 1.5 - 3.8 [facility] Comment on above: Performed By: #### 2 94860 #### [facility],[address] [place] [address] 38307 Glucose [Mass/Vol] 89 mg/dL Normal 74 - 106 [facility] Comment on above: Performed By: #### 2 91021 #### [facility],[address] [place] [address] 60508 Potassium [Moles/Vol] 3.9 mmol/L Normal 3.5 - 5.1 [facility] Comment on above: Performed By: #### 2 29250 #### [facility],[address] [place] [address] 88789 Protein [Mass/Vol] 7.0 g/dL Normal 6.4 - 8.2 [facility] Comment on above: Performed By: #### 2 16106 #### [facility],[address] [place] [address] 19675 Sodium [Moles/Vol] 144 mmol/L Normal 136 - 145 [facility] Comment on above: Performed By: #### 2 57106 #### [facility],[address] [place] [address] 30163 Urea nitrogen [Mass/Vol] 8 mg/dL Normal 7 - 18 [facility] Comment on above: Performed By: #### 2 44121 #### [facility],[address] [place] [address] 41949 TSHon 09-10-2023 TSH Qn 1.01 m[IU]/L Normal 0.35 - 3.74 [facility] Comment on above: Performed By: #### 2 24085 #### [facility],[address] [place] [address] 38536 3D MAMM BILAT SCREENon 11-29 3D MAMM BILAT SCREEN [place] [address] Patient: ARIEL NGUYEN Phone#: : 1960 Age: 62 Gender: F Pt. Type: Out Account: [id number] Location: [facility] Ordering: [facility] Exam Date: 11/29/2022/14:08 Family Phys: Charge Code: [id number] Physician: Dooly Order #: [id number] Dose#: PROCEDURE: BILATERAL SCREENING BREAST TOMOSYNTHESIS MAMMOGRAM WITH CAD COMPARISON: [facility], BILAT SCREENING, 07/08/2014, 10:05. [facility], BILAT SCREENING, 03/26/2017, 9:53. INDICATIONS: Screening. BREAST COMPOSITION: Scattered areas fibroglandular density. FINDINGS: DIAGNOSTIC CATEGORY 1--NEGATIVE NO CHANGE FROM COMPARISON ASSESSMENT. RIGHT BREAST: No significant suspicious finding. Scattered benign-appearing calcifications are present. No significant change has occurred. LEFT BREAST: No significant suspicious finding. No significant change has occurred. RECOMMENDATIONS: ROUTINE MAMMOGRAM AND CLINICAL EVALUATION IN 12 MONTHS. PLEASE NOTE: A NORMAL MAMMOGRAM DOES NOT EXCLUDE THE POSSIBILITY OF BREAST CANCER. A CLINICALLY SUSPICIOUS PALPABLE LUMP SHOULD BE BIOPSIED. THIS FACILITY UTILIZES A REMINDER SYSTEM TO ENSURE THAT ALL PATIENTS RECEIVE REMINDER LETTERS FOR APPOINTMENTS. THIS INCLUDES REMINDERS FOR ROUTINE MAMMOGRAMS, DIAGNOSITC MAMMOGRAMS, OR OTHER BREAST IMAGING INTERVENTIONS WHEN APPROPRIATE. THIS PATIENT WILL BE PLACED IN THE APPROPRIATE REMINDER SYSTEM. Dictated by: Krystyna Tripp MD on 11/29/2022 at 14:25 Approved by: Krystyna Tripp MD on 11/29/2022 at 14:27 Normal [facility] Absolute lymphocyte countOrd ered By: Dr. Nolan on 07-16-2022 Lymphocytes Auto (Unsp spec) [#/Vol] 1.44 10*3/uL 0.83-4.51 [facility] Basophil percentageOrdered B y: Dr. Nolan on 07-16-2022 Basophils/100 WBC (Bld) 0.7 % 0-1 [facility] Bilirubin [Mass/Vol] 0.50 mg/dL 0.20-1.00 [facility] Comment on above: For patients on eltr ombopag therapy, use of Dimension [place] TBIL is not recommended. Chloride [Moles/Vol] 108 mmol/L 98-107 [facility] Eosinophils/100 WBC (Bld) 4.0 % 0-5 [facility] Glucose [Mass/Vol] 97 mg/dL 74-106 [facility] Neutrophils (Bld) [#/Vol] 2.2 10*3/uL 2.0-7.7 [facility] Neutrophils/100 WBC (Bld) 53.4 % 47-70 [facility] Potassium [Moles/Vol] 4.3 mmol/L 3.5-5.1 [facility] Protein [Mass/Vol] 7.0 g/dL 6.4-8.2 [facility] Sodium [Moles/Vol] 140 mmol/L 136-145 [facility] WBC (Bld) [#/Vol] 4.0 10*3/uL 4.4-11.0 [facility] Bilirubin Test strip Ql (U)O rdered By: Dr. Nolan on 07-16-2022 Bilirubin Ql (U) Negative Negative [facility] Blood erythrocytes count (nu mber/volume)Ordered By: Dr. Nolan on 07-16-2022 RBC (Bld) [#/Vol] 4.48 10*6/uL 4.2-5.4 [facility] Blood hemoglobin measurement (mass/volume)Ordered By: Dr. Nolan on 07-16-2022 Hemoglobin (Bld) [Mass/Vol] 13.5 g/dL 12.0-15.0 [facility] Blood lymphocytes/100 leukoc ytesOrdered By: Dr. Nolan on 07-16-2022 Lymphocytes/100 WBC (Bld) 35.7 % 19-41 [facility] Blood monocytes/100 leukocyt esOrdered By: Dr. Nolan on 07-16-2022 Monocytes/100 WBC (Bld) 6.0 % 0-10 [facility] Blood platelet mean volumeOr dered By: Dr. Nolan on 07-16-2022 Platelet mean volume (Bld) [Entitic vol] 11.2 fL 6.2-12.0 [facility] Determination of erythrocyte mean corpuscular volume (MCV)Ordered By: Dr. Nolan on 07-16-2022 MCV (RBC) [Entitic vol] 88.6 fL 81-99 [facility] Dilute Librado's viper venom timeOrdered By: Dr. Nolan on 07-16-2022 dRVVT Coag (PPP) [Time] 40.0 s 0.0-47.0 [facility] Erythrocyte sedimentation ra teOrdered By: Dr. Nolan on 07-16-2022 ESR (Bld) [Velocity] 11 mm/h 0-30 [facility] Hematocrit Auto (Bld) [Volum e fraction]Ordered By: Dr. Nolan on 07-16-2022 Hematocrit (Bld) [Volume fraction] 39.7 % 37-47 [facility] INR in Blood by Coagulation assayOrdered By: Dr. Nolan on 07-16-2022 INR Coag (Bld) [Relative time] 1.0 {INR} [facility] Ketones Test strip Ql (U)Ord ered By: Dr. Nolan on 07-16-2022 Ketones Ql (U) Negative Negative [facility] Laboratory - Chemistry and C hemistry - challengeOrdered By: Dr. Nolan on 07-16-2022 ALP [Catalytic activity/Vol] 73 U/L 45-117 [facility] ALT [Catalytic activity/Vol] 20 U/L 13-56 [facility] CO2 [Moles/Vol] 25.0 mmol/L 21.0-32.0 [facility] Globulin (S) [Mass/Vol] 3.2 g/dL 2.2-4.2 [facility] Urea nitrogen/Creatinine [Mass ratio] 15.3 mg/mg 10-20 [facility] Laboratory - CoagulationOrde red By: Dr. Nolan on 07-16-2022 aPTT Coag (Bld) [Time] 25.1 s 24.1-36.2 [facility] PT Coag (PPP) [Time] 12.8 s 11.7-14.9 [facility] Laboratory - Hematology and Cell countsOrdered By: Dr. Nolan on 07-16-2022 Erythrocyte distribution width (RBC) [Entitic vol] 38.5 fL 35.1-43.9 [facility] Erythrocyte distribution width (RBC) [Ratio] 11.9 % 11.6-14.6 [facility] Immature granulocytes/100 WBC (Bld) 0.200 % 0.0-0.9 [facility] Comment on above: IG% - Immature Granu locytes (promyelocytes, myelocytes and metamyelocytes) > 1% indicates that a LEFT SHIFT is Present. MCH (RBC) [Entitic mass] 30.1 pg 27.0-32.0 [facility] Nucleated RBC/100 WBC (Bld) [Ratio] 0 % 0-5 [facility] Laboratory - Miscellaneous t estsOrdered By: Dr. Nolan on 07-16-2022 Service comment (Unsp spec) [Interp] Comment . [facility] Comment on above: Results do not indic ate the presence of a LupusAnticoagulant: abnormal high screening results (PTT-LA,dRVVT, mixing studies), may be due to medication (heparin,warfarin, aspirin), Factor inhibitors, anticardiolipinantibodies, or poor specimen integrity.Performed at: - Lab[address] [id number] Director: Chitra Luna MD, Phone: [phone] MCHC Auto (RBC) [Mass/Vol]Or dered By: Dr. Nolan on 07-16-2022 MCHC (RBC) [Mass/Vol] 34.0 g/dL 32-36 [facility] Nitrite Test strip Ql (U)Ord ered By: Dr. Nolan on 07-16-2022 Nitrite Ql (U) Negative Negative [facility] No Panel InformationOrdered By: Dr. Nolan on 07-16-2022 Estimated GFR (MDRD) Amer 87 mL/min >60 [facility] Comment on above: GFR Calc Estimated GFR (MDRD) Non-Af Amer 72 mL/min >60 [facility] Comment on above: Non- GFR Calc Hepatitis B Surface Antigen Non-Reactive Nonreactive [facility] Hepatitis C Antibody Non-Reactive Nonreactive [facility] Comment on above: Non Reactive: < 0.8 Equivocal: >/= 0.8 to < 1.0 Reactive: >/= 1.0The CDC recommends that a reactive/equivocal HCV antibody result be followed up by the HCV Nucleic Acid Amplificationtest (105880) Miscellaneous Test Comment MAILED SPECIMEN [facility] Platelets bldOrdered By: Dr. Nolan on 07-16-2022 Platelets (Bld) [#/Vol] 169 10*3/uL 150-450 [facility] Protein Test strip Ql (U)Ord ered By: Dr. Nolan on 07-16-2022 Protein Ql (U) Negative Negative [facility] Serum hepatitis B virus surf sandie antibody IgG detectionOrdered By: Dr. Nolan on 07-16-2022 HBV surface IgG Ql (S) Reactive [facility] Comment on above: Non Reactive: Incons istent with immunity less than <10 mIU/mL Reactive: Consistent with immunity greater than or equal to 10 mIU/mL Serum or plasma C reactive p rotein measurement (mass/volume)Ordered By: Dr. Nolan on 07-16-2022 CRP [Mass/Vol] mg/L 0.0-3.0 [facility] Comment on above: C-Reactive Protein ( CRP) provides useful information for thediagnosis, therapy and monitoring of inflammatory processesand associated diseases. For the evaluation of Relative Riskfor Cardiovascular Disease, a High Sensitivity CRP (HSCRP)should be ordered. Serum or plasma albumin sami urement (mass/volume)Ordered By: Dr. Nolan on 07-16-2022 Albumin [Mass/Vol] 3.8 g/dL 3.2-5.0 [facility] Serum or plasma albumin/glob ulin mass ratioOrdered By: Dr. Nolan on 07-16-2022 Albumin/Globulin [Mass ratio] 1.2 {ratio} 0.9-2.4 [facility] Serum or plasma calcium sami urement (mass/volume)Ordered By: Dr. Nolan on 07-16-2022 Calcium [Mass/Vol] 9.3 mg/dL 8.5-10.1 [facility] Serum or plasma creatinine m easurement (mass/volume)Ordered By: Dr. Nolan on 07-16-2022 Creatinine [Mass/Vol] 0.85 mg/dL 0.55-1.02 [facility] Comment on above: The validity of the calculated GFR & GFRAA in patients over 70 years has not been determined. Clinical correlation is essential. Serum or plasma urea nitroge n measurement (mass/volume)Ordered By: Dr. Nolan on 07-16-2022 Urea nitrogen [Mass/Vol] 13 mg/dL 7-18 [facility] Thin prep Papanicolaou smear with manual screeningOrdered By: Dr. Nolan on 07-16-2022 Thin prep Papanicolaou smear with manual screening 17 U/L 15-37 [facility] Thin prep Papanicolaou smear with manual screening 7 5-15 [facility] Thin prep Papanicolaou smear with manual screening 41.8 sec 0.0-47.6 [facility] Thin prep Papanicolaou smear with manual screening 1.09 Ratio 0.00-1.34 [facility] Thin prep Papanicolaou smear with manual screening 41.1 sec 0.0-43.5 [facility] Comment on above: Please note refere nce interval change Thin prep Papanicolaou smear with manual screening Comment: . [facility] Comment on above: No lupus anticoagula nt was detected. Thrombin time in platelet po or plasmaOrdered By: Dr. Nolan on 07-16-2022 Thrombin time Coag (PPP) [Time] 16.6 sec 0.0-23.0 [facility] Urine blood detectionOrdered By: Dr. Nolan on 07-16-2022 RBC Ql (U) Negative Negative [facility] Urine clarityOrdered By: Dr. Nolan on 07-16-2022 Clarity (U) Clear Clear [facility] Urine color determinationOrd ered By: Dr. Nolan on 07-16-2022 Color (U) Yellow Yellow [facility] Urine creatinine measurement (mass/volume)Ordered By: Dr. Nolan on 07-16-2022 Creatinine (U) [Mass/Vol] 52.90 mg/dL NO RANGE EST. [facility] Urine glucose detectionOrder ed By: Dr. Nolan on 07-16-2022 Glucose Ql (U) Normal mg/dl Normal [facility] Urine leukocyte esterase det ection by dipstickOrdered By: Dr. Nolan on 07-16-2022 Leukocyte esterase Test strip Ql (U) Negative Negative [facility] Urine pHOrdered By: Dr. Duke banerjee on 07-16-2022 pH (U) 6.5 [pH] 5.0 - 8.0 [facility] Urine protein measurement (m ass/volume)Ordered By: Dr. Nolan on 07-16-2022 Protein (U) [Mass/Vol] mg/dL 0.0-11.8 [facility] Urine protein/creatinine mas s ratioOrdered By: Dr. Nolan on 07-16-2022 Protein/Creatinine (U) [Mass ratio] TNP [facility] Comment on above: Test not performed Urine specific gravity measu rementOrdered By: Dr. Nolan on 07-16-2022 Specific gravity (U) [Rel density] 1.010 1.002-1.030 [facility] Urobilinogen Auto test strip Ql (U)Ordered By: Dr. Nolan on 07-16-2022 Urobilinogen Ql (U) Normal mg/dl Normal [facility] NM GASTRIC EMPTYING STUDYon 06-04-2021 NM GASTRIC EMPTYING STUDY ORIGINAL NM GASTRIC EMPTYING STUDY Clinical Statement: NAUSEA, VOMITING, GASTROPARESIS Technique: Standard meal consisting of: Radiopharmaceutical: Tc-99m Sulfur Colloid po Dose: Dose mCi Tc-99m sulfur colloid in 4 oz of Egg Beaters 2 slices of bread, 2 Tsp of jelly 4 oz of water Anterior and posterior images of the stomach for 4 hours Calculate geometric mean of anterior and posterior images Calculate T 1/2 for gastric emptying Reference: Carlos TL, Francesco M, Nathanael K, et al. Consensus Recommendations for Gastric Emptying Scintigraphy: A Joint Report of the [place] [employer] Society of Nuclear Medicine. Am J Gastroenterology 2008;[id number]. Report: 30 minutes: 73% Retention. A value lower than 70% suggests rapid gastric emptying. 60 minutes: 58% Retention. A value less than 30% suggests rapid gastric emptying. A value greater than 90% suggests delayed gastric emptying. 120 minutes: 20% Retention. A value greater than 60% suggests delayed gastric emptying. 180 minutes: 8% Retention. A value greater than 30% suggests delayed gastric emptying. 240 minutes: 3% Retention. A value greater than 10% suggests delayed gastric emptying. IMPRESSION: Normal gastric emptying of solid food. Of note, the patient reported symptoms of nausea during the study. Interpreted By: Clarissa Owens Preliminary Report By: Clarissa Owens Electronically Signed By: Clarissa Owens Dictated Date: 11/03/2020 3:26:18 PM Prelim Date: 11/03/2020 3:26:18 PM Sign Date: 11/03/2020 3:29:42 PM Ordering Provider:Ariel Jane [facility] ([place]) .Auto Diffon 10-02-2020 Basophil, Absolute 0.10 10 3/mcL Normal 0.00-0.27 [facility] ([place]) Comment on above: Performed By: #### C TRISH LANG ANEU, CMP, GFR, TSH, ERDS #### [facility] [address] [place] [address] Basophils/100 WBC (Bld) 1.1 % Normal 0.0-2.5 [facility] ([place]) Comment on above: Performed By: #### C BC, ADIFF, ANEU, CMP, GFR, TSH, ERDS #### [address] [address] Eosinophil, Absolute 0.20 10 3/mcL Normal 0.00-0.65 [facility] ([place]) Comment on above: Performed By: #### C BC, ADIFF, ANEU, CMP, GFR, TSH, ERDS #### [address] [address] Eosinophils/100 WBC (Bld) 2.7 % Normal 0.0-6.0 [facility] ([place]) Comment on above: Performed By: #### C BC, ADIFF, ANEU, CMP, GFR, TSH, ERDS #### [address] [address] Lymphocyte, Absolute 1.80 10 3/mcL Normal 0.90-4.32 [facility] ([place]) Comment on above: Performed By: #### C BC, ADIFF, ANEU, CMP, GFR, TSH, ERDS #### [address] [address] Lymphocytes/100 WBC (Bld) 28.9 % Normal 20.0-40.0 [facility] ([place]) Comment on above: Performed By: #### C BC, ADIFF, ANEU, CMP, GFR, TSH, ERDS #### [address] [address] Monocyte, Absolute 0.40 10 3/mcL Normal 0.09-1.40 [facility] ([place]) Comment on above: Performed By: #### C BC, ADIFF, ANEU, CMP, GFR, TSH, ERDS #### [address] [address] Monocytes/100 WBC (Bld) 6.2 % Normal 2.0-13.0 [facility] ([place]) Comment on above: Performed By: #### C BC, ADIFF, ANEU, CMP, GFR, TSH, ERDS #### [address] [address] Neutrophils/100 WBC (Bld) 61.1 % Normal 50.0-75.0 [facility] ([place]) Comment on above: Performed By: #### C BC, ADIFF, ANEU, CMP, GFR, TSH, ERDS #### [address] [address] .GFRon 10-02-2020 GFR >60 Normal [facility] ([place]) Comment on above: Result Comment: GFR Population mean for , Non- Americans Ages 20-29 = 116 mL/min/1.73 sq.m. Ages 30-39 = 107 mL/min/1.73 sq.m. Ages 40-49 = 99 mL/min/1.73 sq.m. Ages 50-59 = 93 mL/min/1.73 sq.m. Ages 60-69 = 85 mL/min/1.73 sq.m. Ages 70+ = 75 mL/min/1.73 sq.m. Chronic Kidney Disease: Less than 60 mL/min/1.73 square meters End Stage Renal Disease: Less than 15 mL/min/1.73 square meters Performed By: #### C BC, ADIFF, ANEU, CMP, GFR, TSH, ERDS #### [address] [address] GFR Non- >60 Normal [facility] ([place]) Comment on above: Result Comment: GFR Population mean for , Non- Americans Ages 20-29 = 116 mL/min/1.73 sq.m. Ages 30-39 = 107 mL/min/1.73 sq.m. Ages 40-49 = 99 mL/min/1.73 sq.m. Ages 50-59 = 93 mL/min/1.73 sq.m. Ages 60-69 = 85 mL/min/1.73 sq.m. Ages 70+ = 75 mL/min/1.73 sq.m. Chronic Kidney Disease: Less than 60 mL/min/1.73 square meters End Stage Renal Disease: Less than 15 mL/min/1.73 square meters Performed By: #### C BC, ADIFF, ANEU, CMP, GFR, TSH, ERDS #### [address] [address] .NEUABSon 10-02-2020 Neutrophil, Absolute 3.70 10 3/mcL Normal 2.25-8.10 [facility] ([place]) Comment on above: Performed By: #### C BC, ADIFF, ANEU, CMP, GFR, TSH, ERDS #### [address] [address] CBCon 10-02-2020 Erythrocyte distribution width (RBC) [Ratio] 13.4 % Normal 11.5-15.5 [facility] ([place]) Comment on above: Performed By: #### C BC, ADIFF, ANEU, CMP, GFR, TSH, ERDS #### [place] [address] Hematocrit (Bld) [Volume fraction] 38.2 % Normal 34.0-46.0 [facility] ([place]) Comment on above: Performed By: #### C BC, ADIFF, ANEU, CMP, GFR, TSH, ERDS #### [place] [address] Hgb 13.0 G/dL Normal 12.0-16.0 [facility] ([place]) Comment on above: Performed By: #### C BC, ADIFF, ANEU, CMP, GFR, TSH, ERDS #### [place] [address] MCH (RBC) [Entitic mass] 30.6 pg Normal 27.0-33.0 [facility] ([place]) Comment on above: Performed By: #### C BC, ADIFF, ANEU, CMP, GFR, TSH, ERDS #### [place] [id number] MCHC 34.1 G/dL Normal 32.0-36.0 [facility] ([place]) Comment on above: Performed By: #### C BC, ADIFF, ANEU, CMP, GFR, TSH, ERDS #### [place] [address] MCV (RBC) [Entitic vol] 89.8 fL Normal 80.0-99.0 [facility] ([place]) Comment on above: Performed By: #### C BC, ADIFF, ANEU, CMP, GFR, TSH, ERDS #### [place] [id number] Platelet 158 10 3/mcL Normal 150-450 [facility] ([place]) Comment on above: Performed By: #### C BC, ADIFF, ANEU, CMP, GFR, TSH, ERDS #### [place] [address] Platelet mean volume (Bld) [Entitic vol] 8.7 fL Normal 6.6-10.5 [facility] ([place]) Comment on above: Performed By: #### C BC, ADIFF, ANEU, CMP, GFR, TSH, ERDS #### [place] [id number] RBC 4.26 10 6/mcL Normal 4.10-5.30 [facility] ([place]) Comment on above: Performed By: #### C BC, ADIFF, ANEU, CMP, GFR, TSH, ERDS #### [place] [address] WBC 6.10 10 3/mcL Normal 4.50-10.80 [facility] ([place]) Comment on above: Performed By: #### C BC, ADIFF, ANEU, CMP, GFR, TSH, ERDS #### [place] [address] CMPon 10-02-2020 Albumin Level 3.8 G/dL Normal 3.2-4.8 [facility] ([place]) Comment on above: Performed By: #### C BC, ADIFF, ANEU, CMP, GFR, TSH, ERDS #### [place] [address] Albumin/Globulin [Mass ratio] 1.3 {ratio} Normal 0.9-1.6 [facility] ([place]) Comment on above: Performed By: #### C BC, ADIFF, ANEU, CMP, GFR, TSH, ERDS #### [place] [address] ALP [Catalytic activity/Vol] 72 U/L Normal 38-126 [facility] ([place]) Comment on above: Performed By: #### C BC, ADIFF, ANEU, CMP, GFR, TSH, ERDS #### [address] [address] ALT [Catalytic activity/Vol] 22 U/L Normal 10-49 [facility] ([place]) Comment on above: Performed By: #### C BC, ADIFF, ANEU, CMP, GFR, TSH, ERDS #### [address] [address] AST [Catalytic activity/Vol] 20 U/L Normal 8-34 [facility] ([place]) Comment on above: Performed By: #### C BC, ADIFF, ANEU, CMP, GFR, TSH, ERDS #### [address] [address] Bili Total 0.3 mg/dL Normal 0.2-1.2 [facility] ([place]) Comment on above: Result Comment: Use of this assay is not recommended for patients undergoing treatment with eltrombopag due to the potential for falsely elevated results. Performed By: #### C BC, ADIFF, ANEU, CMP, GFR, TSH, ERDS #### [place] [phone] BUN/Creatinine Ratio 10.7 ratio Normal 10.0-22.0 [facility] ([place]) Comment on above: Performed By: #### C BC, ADIFF, ANEU, CMP, GFR, TSH, ERDS #### [address] [address] Calcium [Mass/Vol] 9.4 mg/dL Normal 8.4-10.1 [facility] ([place]) Comment on above: Result Comment: No te - New Reference Range in effect 19 Performed By: #### C BC, ADIFF, ANEU, CMP, GFR, TSH, ERDS #### [address] [address] Chloride [Moles/Vol] 111 mmol/L High 98-110 [facility] ([place]) Comment on above: Performed By: #### C BC, ADIFF, ANEU, CMP, GFR, TSH, ERDS #### [address] [address] CO2 [Moles/Vol] 27 mmol/L Normal 22-32 [facility] ([place]) Comment on above: Performed By: #### C BC, ADIFF, ANEU, CMP, GFR, TSH, ERDS #### [address] [address] Creatinine [Mass/Vol] 0.84 mg/dL Normal 0.50-1.20 [facility] ([place]) Comment on above: Performed By: #### C BC, ADIFF, ANEU, CMP, GFR, TSH, ERDS #### [address] [address] Electrolyte Balance 4.0 mEq/L Normal 4.0-15.0 [facility] ([place]) Comment on above: Performed By: #### C BC, ADIFF, ANEU, CMP, GFR, TSH, ERDS #### [address] [address] Globulin 3.0 G/dL Normal 1.5-3.8 [facility] ([place]) Comment on above: Performed By: #### C BC, ADIFF, ANEU, CMP, GFR, TSH, ERDS #### [address] [address] Glucose [Mass/Vol] 119 mg/dL High 82-115 [facility] ([place]) Comment on above: Performed By: #### C BC, ADIFF, ANEU, CMP, GFR, TSH, ERDS #### [address] [address] Potassium [Moles/Vol] 3.8 mmol/L Normal 3.5-5.0 [facility] ([place]) Comment on above: Performed By: #### C BC, ADIFF, ANEU, CMP, GFR, TSH, ERDS #### [address] [address] Sodium [Moles/Vol] 142 mmol/L Normal 136-145 [facility] ([place]) Comment on above: Performed By: #### C BC, ADIFF, ANEU, CMP, GFR, TSH, ERDS #### [address] [address] Total Protein 6.8 G/dL Normal 6.0-8.5 [facility] ([place]) Comment on above: Result Comment: No te - New Reference Range in effect 19 Performed By: #### C BC, ADIFF, ANEU, CMP, GFR, TSH, ERDS #### [place] [address] Urea nitrogen [Mass/Vol] 9.0 mg/dL Normal 8.0-22.0 [facility] ([place]) Comment on above: Performed By: #### C BC, ADIFF, ANEU, CMP, GFR, TSH, ERDS #### [place] [address] ERDSon 10-02-2020 Acetaminophen [Mass/Vol] ug/mL Low 10.0-20.0 [facility] ([place]) Comment on above: Performed By: #### C BC, ADIFF, ANEU, CMP, GFR, TSH, ERDS #### [place] [address] ER Drug Screen (s) Negative Normal [facility] ([place]) Comment on above: Performed By: #### C BC, ADIFF, ANEU, CMP, GFR, TSH, ERDS #### [place] [address] ER Drug Screen Interp Serum shows no audrey dence of drugs routinely screened Invalid Interpretation Code [facility] ([place]) Comment on above: Performed By: #### C BC, ADIFF, ANEU, CMP, GFR, TSH, ERDS #### [place] [address] ER Serum Drugs Screened: See Below Normal [facility] ([place]) Comment on above: Result Comment: This drug screen is a presumptive screening only. No confirmation will be performed unless requested. Drugs included in the ER serum drug screen are: Threshold Ethanol 10.0 mg/dL Salicylate 2.0 mg/dL Acetaminophen 2.0 mcg/mL Tricyclic Antidepressants 300 ng/mL Testing has been performed FOR MEDICAL PURPOSES ONLY. Performed By: #### C BC, ADIFF, ANEU, CMP, GFR, TSH, ERDS #### [place] [address] Ethanol Level <10.0 Normal [facility] ([place]) Comment on above: Performed By: #### C BC, ADIFF, ANEU, CMP, GFR, TSH, ERDS #### [place] [address] Salicylate Lvl (ds) <3.0 Low 10.0-25.0 [facility] ([place] Comment on above: Performed By: #### C BC, ADIFF, ANEU, CMP, GFR, TSH, ERDS #### [place] [address] TCA (s) Negative Normal [facility] ([place]) Comment on above: Performed By: #### C BC, ADIFF, ANEU, CMP, GFR, TSH, ERDS #### [place] [address] RESCVIDon 10-02-2020 Adenovirus Not detected Normal Not Detected [facility] ([place]) Comment on above: Performed By: #### R ESCVID #### [place] [address] Bordetella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 Chau MD Work Phone: [facility] 01-14-2025 08:18-0400 Systolic blood pressure 122 mm[Hg] Carrillo Chau MD Work Phone: [facility] 12-29-2024 14:07-0400 Body height 167.6 cm Jacqueline Godwin MD Work Phone: [facility] 12-29-2024 14:07-0400 Body mass index (BMI) [Ratio] 30.34 kg/m2 Jacqueline Godwin MD Work Phone: [facility] 12-29-2024 14:07-0400 Body weight 85.28 kg Jacqueline Godwin MD Work Phone: [facility] 12-29-2024 14:07-0400 Diastolic blood pressure 64 mm[Hg] Jacqueline Godwin MD Work Phone: [facility] 12-29-2024 14:07-0400 Heart rate 61 /min Jacqueline Godwin MD Work Phone: [facility] 12-29-2024 14:07-0400 SaO2% (BldA) [Mass fraction] 98 % Jacqueline Godwin MD Work Phone: [facility] Comment on above: RA 12-29-2024 14:07-0400 Systolic blood pressure 126 mm[Hg] Jacqueline Godwin MD Work Phone: [facility] Encounters Encounter Date Encounter Type Care Provider Facility Start: 01-15-2025 End: 01-15-2025 Follow-up encounter Carrillo Chau MD Work Phone: [facility] Start: 01-14-2025 ambulatory CARRILLO CHAU Faci lity:[facility] Start: 01-14-2025 End: 01-14-2025 Subsequent hospital visit by physician Screen Mammo [facility] Comment on above: Encounter for screen ing mammogram for malignant neoplasm of breast [Z12.31] Start: 01-14-2025 End: 01-14-2025 ambulatory CARRILLO CHAU Facility:[facility] Start: 01-14-2025 End: 01-14-2025 Office outpatient new 45 minutes Carrillo Chau MD Work Phone: [facility] Comment on above: Severe episode of re current major depressive disorder, without psychotic features (HCC) (Primary Dx); S/P CABG (coronary artery bypass graft); PTSD (post-traumatic stress disorder); Screening for cervical cancer; Encounter for screening mammogram for malignant neoplasm of breast; Encounter for hepatitis C screening test for low risk patient; Screening for HIV without presence of risk factors; Hyperlipidemia, unspecified hyperlipidemia type; Obesity, Class I, BMI 30-34.9; Ischemic cardiomyopathy; Irritable bowel syndrome with constipation; Acquired hypothyroidism; Generalized anxiety disorder with panic attacks; Nonrheumatic mitral valve stenosis with insufficiency; Non-rheumatic aortic regurgitation Start: 01-14-2025 End: 01-14-2025 ambulatory CARRILLO Hurley CHAU Facility:[facility] Start: 01-06-2025 End: 01-06-2025 Telemedicine consultation with patient Jacqueline Godwin MD Work Phone: Cardiology Start: 01-06-2025 End: 01-06-2025 ambulatory Jacqueline Godwin MD Work Phone: Cardiology Comment on above: Acute on chronic paresh stolic (congestive) heart failure (HCC) (Primary Dx); Chronic systolic HF (heart failure) (HCC); Ischemic cardiomyopathy; Primary hypertension Start: 12-29-2024 End: 12-29-2024 ambulatory [facility] Work Phone: Cardiology Comment on above: Event (Zio patch) Start: 12-29-2024 End: 12-29-2024 Patient encounter procedure Jacqueline Godwin MD Work Phone: Cardiology Comment on above: Acute on chronic paresh stolic (congestive) heart failure (HCC) (Primary Dx); Chronic systolic HF (heart failure) (HCC); Ischemic cardiomyopathy; Primary hypertension; Shortness of breath Start: 12-29-2024 End: 12-29-2024 ambulatory JACQUELINE GODWIN Facility:[facility] Start: 12-29-2024 End: 12-29-2024 ambulatory SABINE POWER Facility:[facility] Start: 10-12-2024 End: 10-12-2024 Orders Only Jacqueline Godwin MD Work Phone: Cardiology Comment on above: Chronic congestive h eart failure, unspecified heart failure type (HCC) (Primary Dx) Mitral valve insuffi ciency, unspecified etiology (Primary Dx) Start: 10-13-2023 End: 10-13-2023 Emergency department patient visit NATACHA MACARIO [facility] Start: 10-07-2023 End: 10-07-2023 ambulatory [facility] Facility:[facility] Start: 09-16-2023 End: 09-16-2023 ambulatory [facility] Start: 09-10-2023 End: 09-10-2023 ambulatory [facility] Start: 11-29-2022 End: 11-29-2022 ambulatory [facility] Start: 07-16-2022 End: 07-16-2022 ambulatory [facility] Work Phone: Start: 07-16-2022 End: 07-16-2022 Patient encounter procedure [facility] Start: 08-13-2017 Ambulatory ASHLI Kenyetta KING [facility] Start: 07-15-2017 Ambulatory Joy[facility]elyn Figueroa [facility] Start: 07-01-2017 Ambulatory ASHLI J KING [facility] Start: 06-27-2017 Ambulatory Ashli King [facility] Start: 06-25-2017 Ambulatory Ashli King [facility] Start: 05-28-2017 End: 05-28-2017 Emergency department patient visit RAMAKRISHNA ESPANA Facility:[facility] Procedures Date Procedure Procedure Detail Performing Clinician Start: 01-14-2025 History of coronary artery bypass grafting S/P CABG (coronary artery bypass graft) Carrillo Chau MD Work Phone: Start: 12-29-2024 Lipid 1996 panel - Serum or Plasma Jacqueline Godwin MD Work Phone: Start: 08-09-2024 Lipid 1996 panel - Serum or Plasma [facility] Work Phone: Plan of Treatment Date Care Activity Detail Author Start: 01-19-2035 RSV Vaccine (1 - 1-d ose 75+ series) RSV Vaccine (1 - 1-dose 75+ series) [facility] Start: 12-29-2029 Lipid panel Lipid Screening [facility] Start: 08-09-2029 Lipid panel Lipid Screening [facility] Start: 12-30-2027 Diabetes Screening Diabetes Screenin g [facility] Start: 10-27-2027 Diabetes Screening Diabetes Screenin g [facility] Start: 01-14-2026 Annual PCP Team Consulting Services Manager bhanu Disease Visit Annual PCP Team Chronic Disease Visit [facility] Start: 08-09-2025 Screening for malign ant neoplasm of colon Fecal Occult Blood [facility] Start: 04-18-2025 End: 04-18-2025 Patient encounter procedure 04/18/2025 11:20 AM EST Office Visit [facility] [address] [place] [address] Analilia Chan, SUPERVISOR [employer].TURNTABLE OPERATOR [address] [place] [address] 3 month follow up [facility] Comment on above: 3 month follow up Start: 03-01-2025 End: 03-01-2025 Patient encounter procedure Cardiology Comment on above: DX MITRAL VALVE REGU R Start: 03-01-2025 End: 03-01-2025 ambulatory 03/01/2025 8:00 AM EDT Procedure Cardiology [address] [place] [address] DX MITRAL VALVE REGUR Cardiology Comment on above: DX MITRAL VALVE REGU R Start: 02-24-2025 End: 02-24-2025 Patient encounter procedure 02/24/2025 2:00 PM EDT Office Visit OB/Gynecology [address] [place] [address] Dilma Garcia, SUPERVISOR [employer].TURNTABLE OPERATOR [address] [place] [address] annual OB/Gynecology Comment on above: annual Start: 02-11-2025 End: 02-11-2025 ambulatory Cardiology Comment on above: DX: CHRONIC HEART FA ILURE Start: 02-11-2025 End: 02-11-2025 ambulatory 02/11/2025 10:15 AM EDT Education [facility] [address] [place] [address] [place] [address] DX: CHRONIC HEART FAILURE [facility] Comment on above: DX: CHRONIC HEART FA ILURE Start: 02-11-2025 End: 02-11-2025 Patient encounter procedure Vascular Medicine Comment on above: DX: CHRONIC HEART FA ILURE Start: 01-31-2025 Influenza vaccination C [facility] Start: 01-25-2025 End: 01-25-2025 ambulatory 01/25/2025 8:00 AM EDT [facility] [address] [place] [address] [place] [address] new pt consult [facility] Comment on above: new pt consult Start: 01-14-2025 End: 01-14-2025 Patient encounter procedure 01/14/2025 8:00 AM EDT Office Visit [facility] [address] [place] [address] Carrillo Chau MD [address] [place] [address] establish care [facility] Comment on above: establish care Start: 12-31-2024 Medicare Annual Well ness Visit Medicare Annual Wellness Visit [facility] Start: 12-29-2024 End: 12-29-2025 ECHO TRANSESOPHAGEAL ECHO TRANSESOPHAGEAL Cardiology Routine Acute on chronic diastolic (congestive) heart failure (HCC) Chronic systolic HF (heart failure) (HCC) Ischemic cardiomyopathy Primary hypertension Shortness of breath Expected: 12/29/2024, Expires: 12/29/2025 [facility] Comment on above: Expected: 12/29/2024 , Expires: 12/29/2025 Start: 12-29-2024 End: 12-29-2025 Echocardiography ECHO Cardiology Routine Acute on chronic diastolic (congestive) heart failure (HCC) Chronic systolic HF (heart failure) (HCC) Ischemic cardiomyopathy Primary hypertension Shortness of breath Expected: 12/29/2024, Expires: 12/29/2025 [facility] Work Phone: Comment on above: Expected: 12/29/2024 , Expires: 12/29/2025 Start: 12-29-2024 End: 12-29-2024 Patient encounter procedure 12/29/2024 1:15 PM EDT Office Visit Cardiology [address] [place] [address] Jacqueline Godwin MD [address] [place] [address] DX CONGESTIVE HEART FAILURE //TRIPLE BYPASS SURGERY 08/12/2024 Cardiology Comment on above: DX CONGESTIVE HEART FAILURE //TRIPLE BYPASS SURGERY 08/12/2024 Start: 12-29-2024 End: 12-29-2024 Admission to same day surgery center 12/29/2024 12:00 PM EDT Procedure Cardiology [address] [place] [address] DX CONGESTIVE HEART FAILURE //TRIPLE BYPASS SURGERY 08/12/2024 Cardiology Comment on above: DX CONGESTIVE HEART FAILURE //TRIPLE BYPASS SURGERY 08/12/2024 Start: 12-29-2024 End: 12-29-2024 Patient encounter procedure 12/29/2024 11:45 AM EDT Office Visit Cardiology [address] [place] [id number] DX CONGESTIVE HEART FAILURE //TRIPLE BYPASS SURGERY 08/12/2024 Cardiology Comment on above: DX CONGESTIVE HEART FAILURE //TRIPLE BYPASS SURGERY 08/12/2024 Start: 12-15-2024 End: 12-15-2024 Patient encounter procedure 12/15/2024 5:40 PM EDT Office Visit [facility] [address] [place] [address] Analilia Chan, SUPERVISOR [employer].TURNTABLE OPERATOR [address] [place] [address] establish care [facility] Comment on above: establish care Start: 08-10-2024 Screening for malign ant neoplasm of colon Colorectal Cancer Screening [facility] Start: 02-01-2024 Covid-19 Vaccine () Covid-19 Vaccine () [facility] Start: 2020 RSV Vaccine (1 - Ris k 60-74 years 1-dose series) RSV Vaccine (1 - Risk 60-74 years 1-dose series) [facility] Start: 01-19-2010 Pneumococcal Vaccine : 50+ (1 of 1 - PCV) Pneumococcal Vaccine: 50+ (1 of 1 - PCV) [facility] Start: 01-19-2010 Shingrix Vaccine (1 of 2) Omalley grix Vaccine (1 of 2) [facility] Start: 01-19-2005 Diabetes Screening Diabetes Screenin g [facility] Start: 01-19-2005 Lipid panel Lipid Screening [facility] Start: 01-19-2005 Screening for malign ant neoplasm of colon [facility] Start: 2000 Screening for malign ant neoplasm of breast Mammogram Screening [facility] Start: 01-19-1981 Screening for malign ant neoplasm of cervix Cervical Cancer Screening [facility] Start: 01-19-1979 Pneumococcal Vaccine : 50+ (1 of 2 - PCV) Pneumococcal Vaccine: 50+ (1 of 2 - PCV) [facility] Start: 01-19-1979 Urine microalbumin profile DTaP,Tdap,Td Vaccine (1 - Tdap) [facility] Start: 01-19-1978 Annual PCP Team Consulting Services Manager bhanu Disease Visit Annual PCP Team Chronic Disease Visit [facility] Start: 01-19-1978 Anxiety Screening Anxiety Screening [facility] Start: 01-19-1978 [facility] Start: 01-[facility]1978 Hepatitis C screening Hepatitis C Sc cesar [facility] Start: 01-19-1978 HIV screening HIV Screening [facility] Start: 01-19-1978 Screening for malign ant neoplasm of colon [facility] CARDIAC REHAB II OUT PT ([place], [place]) CARDIAC REHAB II OUTPT ([place], [place]) BIC Routine Acute on chronic diastolic (congestive) heart failure (HCC) Chronic systolic HF (heart failure) (HCC) Ischemic cardiomyopathy Primary hypertension Shortness of breath Ordered: 12/29/2024 [facility] Comment on above: Ordered: 12/29/2024 DBT Breast - bilater al screening [facility] Radiology Routine Encounter for screening mammogram for malignant neoplasm of breast 01/14/2025 1:22 PM EDT [facility] [place] Work Phone: End: 02-13-2026 DBT Breast - bilateral screening AMELIA SCREENING [facility] Radiology Routine Encounter for screening mammogram for malignant neoplasm of breast 1 Occurrences starting 01/14/2025 until 02/13/2026 [facility] [place] Work Phone: Comment on above: 1 Occurrences starti ng 01/14/2025 until 02/13/2026 End: 10-12-2025 ECG COMPLETE [facility] [place] Work Phone: Comment on above: 1 Occurrences starti ng 10/12/2024 until 10/12/2025 OUTSIDE VENDOR CARDI AC OUTPATIENT EXTENDED RHYTHM RECORDING (WITHOUT TELEMETRY) OUTSIDE VENDOR CARDIAC OUTPATIENT EXTENDED RHYTHM RECORDING (WITHOUT TELEMETRY) Holter Routine Acute on chronic diastolic (congestive) heart failure (HCC) Chronic systolic HF (heart failure) (HCC) Ischemic cardiomyopathy Primary hypertension Shortness of breath Ordered: 12/29/2024 [facility] Comment on above: Ordered: 12/29/2024 Payers Date Payer Category Payer Medicare MEDICARE [id number] 2024 Private Health Insurance [facility] [place] [id number] 2024 Medicare [id number] 2024 Unknown [id number] 2024 Medicaid [facility] DASHA TAS [id number] 2024 [facility] mber [id number] 2023 Self-pay 2023 Unknown [id number] 2023 Unknown [id number] 1960 Unknown [id number] 1960 Unknown [id number] 1960 Unknown [id number] 1960 Unknown [id number] Unknown [id number] Unknown Unknown [id number] Unknown [id number] Unknown [id number] Social History Date Type Detail [facility] Work Phone: Start: 1960 Sex Assigned At Female W [facility] Start: 11-11-2012 [facility] Start: 01-17-2022 Alcoholic beverage intake Current drinker of alcohol (finding) [facility] Start: 11-11-2012 Tobacco Comment 8 CIG PER DAY [facility] Start: 1960 Sex assigned at Not on file [facility] Start: 12-29-2024 End: 01-14-2025 Gender identity Not on file [facility] Start: 12-29-2024 [facility] Start: 05-30-2000 History of tobacco use Current smoke r [facility] Start: 05-30-2000 History of tobacco use Cigarette Smo ker [facility] Start: 12-29-2024 End: 01-14-2025 Cigarettes smoked current (pack per day) - Reported 1 [facility] Start: 12-29-2024 Tobacco use and exposure Smokeless tobacco non-user [facility] Start: 12-29-2024 End: 01-15-2025 Alcoholic beverage intake Ex-drinker (finding) [facility] Start: 09-17-2012 Adult Depression Screening Assessment 2 [facility] Start: 12-29-2024 Alcohol Comment 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 Never [facility] Goals Date Patient Goal Desired Activity /State Personal health goal Functional Status Date Assessment Result Facility 01-14-2025 Total score [AUDIT-C] 0 01/15/20 8:55 AM Carrillo Du MD [facility] Clinical Notes 12-29-2024 to 01-14-2025 Munira Mcqueen Mammo Tech - 01/14/2025 1:30 PM Carrillo Harrell MD - 01/14/2025 8:10 AM Jacqueline Vazquez MD - 01/06/2025 4:06 PM Norma Carbone MA - 12/29/2024 3:54 PM EDT Note Date & Type Note Facility 01-14-2025 History of Present illness Narrative Radiology Service Progress Note PATIENT NAME: Ariel Nguyen DATE OF SERVICE: January 14, 2025 TIME: 1:35 PM PATIENT IDENTITY VERIFICATION COMPLETED USING TWO (2) IDENTIFIERS: Name and Date of confirmed by patient verbally. FALL SCREENING: Has the patient had 2 falls in the last year or 1 fall with injury or currently using an Ambulatory Assistive Device (Walker, Cane, Wheelchair, Crutches, etc.)? No PATIENT GENDER DATA: Assigned female at . status: : No status: NO. PATIENT RELEVANT IMPLANT DATA REVIEWED: Not Applicable PATIENT PRESENTS WITH AN IMPLANTABLE OR ATTACHED INSOLE ROUNDER: No RADIOLOGY DEPARTMENT: Mammography PERIPHERAL IV DATA: Not applicable SIGNED BY: Ronald Felder January 14, 2025 1:35 PM documented in this encounter [facility] 01-14-2025 Note HNO ID: [id number] Author: MUNIRA MCQUEEN Mammo Tech Service: ? Author Type: [employer] Type: Progress Notes Filed: 01/14/2025 13:35 Note Text: Radiology Service Progress Note PATIENT NAME: Ariel Nguyen DATE OF SERVICE: January 14, 2025 TIME: 1:35 PM PATIENT IDENTITY VERIFICATION COMPLETED USING TWO (2) IDENTIFIERS: Name and Date of confirmed by patient verbally. FALL SCREENING: Has the patient had 2 falls in the last year or 1 fall with injury or currently using an Ambulatory Assistive Device (Walker, Cane, Wheelchair, Crutches, etc.)? No PATIENT GENDER DATA: Assigned female at . status: : No status: NO. PATIENT RELEVANT IMPLANT DATA REVIEWED: Not Applicable PATIENT PRESENTS WITH AN IMPLANTABLE OR ATTACHED INSOLE ROUNDER: No RADIOLOGY DEPARTMENT: Mammography PERIPHERAL IV DATA: Not applicable SIGNED BY: Ronald Felder January 14, 2025 1:35 PM [facility] 01-14-2025 Note HNO ID: [id number] Author: CARRILLO CHAU MD Service: ? Author Type: Physician Type: Progress Notes Filed: 01/15/2025 22:21 Note Text: Subjective Ariel Nguyen is a 64 year old female here with significant other Catrachita. PCP Usha Loera MD, [place], [place] Patient presents with: Establish Care Ariel was here to establish care. She and her partner just moved [place] after living in [place]. She had a history of major depression without psychotic features, general anxiety disorder, PTSD, insomnia, and needed refills of her medications. She had been on intermediate project manager alprazolam 0.25 mg as needed, which she had been decreasing the past few months to 1/2 tablet BID as needed. She needed to establish psychiatry care here. She had a NSTEMI in July, CABG x 3, and acute CHF in September. She established cardiology care with Dr. Godwin at [facility]. She had aortic and mitral valvular disease being monitored for progression. She was on metformin for obesity and weight loss. She had no history of diabetes mellitus. The history is provided by the patient, medical records and a friend. PAST MEDICAL HISTORY Diagnosis Date Acquired hypothyroidism 01/15/2025 Acute hypoxic respiratory failure (HCC) 10/10/2024 Acute on chronic diastolic (congestive) heart failure (HCC) 01/02/2025 Acute pulmonary edema with congestive heart failure (HCC) 10/10/2024 Cannabinoid hyperemesis syndrome Chronic diastolic HF (heart failure) ([facility]) Chronic systolic HF (heart failure) (HCC) 01/02/2025 Coronary artery disease 08/08/2024 Diverticulitis large intestine Diverticulosis of colon Gastroparesis 2016 Generalized anxiety disorder with panic attacks Hypertension Hypertensive emergency 08/08/2024 Insomnia Ischemic cardiomyopathy 01/02/2025 Mitral regurgitation and mitral stenosis 10/10/2024 Nausea Non-rheumatic aortic regurgitation 10/10/2024 Non-STEMI (non-ST elevated myocardial infarction) (HCC) 08/08/2024 Obesity, Class I, BMI 30-34.9 Obstructive sleep apnea on CPAP Personal history of colon polyps, unspecified 2011 Pleural effusion on left 09/07/2024 thoracentesis Primary hypertension 01/02/2025 PTSD (post-traumatic stress disorder) 01/14/2025 Severe episode of recurrent major depressive disorder, without psychotic features (HCC) 01/14/2025 Shortness of breath 01/02/2025 Transaminitis 10/10/2024 dt CHF PAST SURGICAL HISTORY Procedure Laterality Date CABG (3) VEIN GRAFTS AND ARTERIAL GRAFT(S) 08/12/2024 KOCH-LAD; SVG-RI; SVG-OM. Left AA clipping. COLONOSCOPY 05/21/2019 COLONOSCOPY AND POLYPECTOMY 2011 COLPOSCOPY CERVIX UPPER/ADJACENT VAGINA Colposcopy ENDOMETRIAL ABLATION WITH US GUIDANCE 06/01/2022 ESOPHAGOGASTRODUODENOSCOPY TRANSORAL DIAGNOSTIC 10/13/2012 EGD PAST SURGICAL HISTORY OF reconstructive surgery on thumb REPAIR WRIST FRACTURE Left 07/01/2017 scaphoid fracture TONSILLECTOMY HX FAMILY HISTORY Problem Relation Age of Onset other (enlarged heart) Mother Lung Cancer Mother age 72 Diabetes Mother Emphysema Mother Hypertension Father Heart Attack Father s/p PCIs and CABG Diabetes Father Heart Father dm/htn Heart Failure Father age 57 Stroke Father Hypertension Sister Heart disease Sister Kidney Disease Sister Stroke Sister brain bleed, age 68 Hyperlipidemia Sister Cancer Maternal Grandmother Heart Attack Maternal Grandfather Heart Paternal Grandfather Social History Tobacco Use Smoking status: Former Average packs/day: 1 pack/day for 17.0 years (17.0 ttl pk-yrs) Types: Cigarettes Start date: 05/30/2000 Smokeless tobacco: Never Substance Use Topics Alcohol use: Not Currently Comment: 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 Ascorbic Acid 100 mg tablet Take 100 mg by mouth once daily. aspirin, enteric coated (ASPIRIN, ENTERIC COATED) 81 mg EC tablet Take 81 mg by mouth once daily. atorvastatin (LIPITOR) 80 mg tablet Take 80 mg by mouth once daily. clopidogrel (PLAVIX) 75 mg tablet Take 75 mg by mouth once daily. desvenlafaxine ER (PRISTIQ) 50 mg 24 hr tablet Take 50 mg by mouth once daily. furosemide (LASIX) 40 mg tablet Take 40 mg by mouth every morning. hydrOXYzine HCl (ATARAX) 50 mg tablet Take 50 mg by mouth two times a day as needed. losartan (COZAAR) 50 mg tablet Take 50 mg by mouth once daily. metoprolol tartrate, short acting, (LOPRESSOR) 25 mg tablet Take 25 mg by mouth two times a day. multivitamin tablet Take 1 tablet by mouth every morning. ondansetron orally disintegrating (ZOFRAN ODT) 8 mg disintegrating tablet Take 8 mg by mouth three ti (more content not included)... [facility] 01-14-2025 History of Present illness Narrative Subjective Ariel Nguyen is a 64 year old female here with significant other Catrachita. PCP Usha Loera MD, [place], [place] Patient presents with: Establish Care Ariel was here to establish care. She and her partner just moved [place] after living in [place] for [place]. She had a history of major depression without psychotic features, general anxiety disorder, PTSD, insomnia, and needed refills of her medications. She had been on intermediate project manager alprazolam 0.25 mg as needed, which she had been decreasing the past few months to 1/2 tablet BID as needed. She needed to establish psychiatry care here. She had a NSTEMI in July, CABG x 3, and acute CHF in September. She established cardiology care with Dr. Godwin at [facility]. She had aortic and mitral valvular disease being monitored for progression. She was on metformin for obesity and weight loss. She had no history of diabetes mellitus. The history is provided by the patient, medical records and a friend. PAST MEDICAL HISTORY Diagnosis Date Acquired hypothyroidism 01/15/2025 Acute hypoxic respiratory failure (HCC) 10/10/2024 Acute on chronic diastolic (congestive) heart failure (HCC) 01/02/2025 Acute pulmonary edema with congestive heart failure (HCC) 10/10/2024 Cannabinoid hyperemesis syndrome Chronic diastolic HF (heart failure) (HCC) Chronic systolic HF (heart failure) (HCC) 01/02/2025 Coronary artery disease 08/08/2024 Diverticulitis large intestine Diverticulosis of colon Gastroparesis 2016 Generalized anxiety disorder with panic attacks Hypertension Hypertensive emergency 08/08/2024 Insomnia Ischemic cardiomyopathy 01/02/2025 Mitral regurgitation and mitral stenosis 10/10/2024 Nausea Non-rheumatic aortic regurgitation 10/10/2024 Non-STEMI (non-ST elevated myocardial infarction) (HCC) 08/08/2024 Obesity, Class I, BMI 30-34.9 Obstructive sleep apnea on CPAP Personal history of colon polyps, unspecified 2011 Pleural effusion on left 09/07/2024 thoracentesis Primary hypertension 01/02/2025 PTSD (post-traumatic stress disorder) 01/14/2025 Severe episode of recurrent major depressive disorder, without psychotic features (HCC) 01/14/2025 Shortness of breath 01/02/2025 Transaminitis 10/10/2024 dt CHF PAST SURGICAL HISTORY Procedure Laterality Date CABG (3) VEIN GRAFTS & ARTERIAL GRAFT(S) 08/12/2024 KOCH-LAD; SVG-RI; SVG-OM. Left AA clipping. COLONOSCOPY 05/21/2019 COLONOSCOPY & POLYPECTOMY 2011 COLPOSCOPY CERVIX UPPER/ADJACENT VAGINA Colposcopy ENDOMETRIAL ABLATION WITH US GUIDANCE 06/01/2022 ESOPHAGOGASTRODUODENOSCOPY TRANSORAL DIAGNOSTIC 10/13/2012 EGD PAST SURGICAL HISTORY OF reconstructive surgery on thumb REPAIR WRIST FRACTURE Left 07/01/2017 scaphoid fracture TONSILLECTOMY HX FAMILY HISTORY Problem Relation Age of Onset other (enlarged heart) Mother Lung Cancer Mother age 72 Diabetes Mother Emphysema Mother Hypertension Father Heart Attack Father s/p PCIs and CABG Diabetes Father Heart Father dm/htn Heart Failure Father age 57 Stroke Father Hypertension Sister Heart disease Sister Kidney Disease Sister Stroke Sister brain bleed, age 68 Hyperlipidemia Sister Cancer Maternal Grandmother Heart Attack Maternal Grandfather Heart Paternal Grandfather Social History Tobacco Use Smoking status: Former Average packs/day: 1 pack/day for 17.0 years (17.0 ttl pk-yrs) Types: Cigarettes Start date: 05/30/2000 Smokeless tobacco: Never Substance Use Topics Alcohol use: Not Currently Comment: 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 Ascorbic Acid 100 mg tablet Take 100 mg by mouth once daily. aspirin, enteric coated (ASPIRIN, ENTERIC COATED) 81 mg EC tablet Take 81 mg by mouth once daily. atorvastatin (LIPITOR) 80 mg tablet Take 80 mg by mouth once daily. clopidogrel (PLAVIX) 75 mg tablet Take 75 mg by mouth once daily. desvenlafaxine ER (PRISTIQ) 50 mg 24 hr tablet Take 50 mg by mouth once daily. furosemide (LASIX) 40 mg tablet Take 40 mg by mouth every morning. hydrOXYzine HCl (ATARAX) 50 mg tablet Take 50 mg by mouth two times a day as needed. losartan (COZAAR) 50 mg tablet Take 50 mg by mouth once daily. metoprolol tartrate, short acting, (LOPRESSOR) 25 mg tablet Take 25 mg by mouth two times a day. multivitamin tablet Take 1 tablet by mouth every morning. ondansetron orally disintegrating (ZOFRAN ODT) 8 mg disintegrating tablet Take 8 mg by mouth three times a day as needed. OXcarbazepine (TRILEPTAL) 150 mg tablet Take 150 mg by mouth two times a day. pantoprazole DR (PROTONIX) 40 mg tablet Take 40 mg by mouth every morning. levothyroxine (SYNTHROID) 88 mcg tablet Take 88 mcg by mouth once daily. metFORMIN (GLUCOPHAGE) 500 mg tablet Take 1 tablet by mouth two times a day. ALPRAZolam (XANAX) 0.25 mg tablet Take 1 tablet by mouth once daily as needed for anxiety for up to 30 days. QUEtiapine (SEROQUEL) 50 mg tablet Take 1 tablet by mouth daily at bedtime. polyethylene glycol 3350 (MIRALAX) 17 gram/dose powder Take 17 g by mouth once daily. Dissolve dose in 4 - 8 ounces of liquid and take as directed. sodium chloride 0.9 %, flush, (BD POSIFLUSH) syringe Inject 2-10 mL intravenously as directed. For Echo procedure No current facility-administered medications for this visit. Review of Systems Constitutional: Negative for activity change, fatigue, fever and unexpected weight change. HENT: Negative for congestion and postnasal drip. Eyes: Negative for visual disturbance. Respiratory: Positive for shortness of breath. Negative for cough, chest tightness and wheezing. Cardiovascular: Negative for chest pain, palpitations and leg swelling. Gastrointestinal: Positive for abdominal pain, constipation and nausea. Negative for blood in stool, diarrhea and vomiting. Genitourinary: Negative for difficulty urinating, dysuria, vaginal bleeding and vaginal discharge. Musculoskeletal: Positive for myalgias (anterior thighs, associated with dyspnea). Negative for arthralgias, gait problem and joint swelling. Skin: Negative for color change. Neurological: Negative for dizziness, syncope, light-headedness and headaches. Psychiatric/Behavioral: Positive for dysphoric mood and sleep disturbance. Negative for hallucinations, self-injury and suicidal ideas. The patient is nervous/anxious. Objective BP 122/74 Pulse 72 Resp 18 Ht 166 cm (5' 5.35) Wt 85.1 kg (187 lb 9.8 oz) SpO2 94% BMI 30.88 kg/m Physical Exam Constitutional: General: She is not in acute distress. Appearance: She is not ill-appearing or diaphoretic. HENT: Head: Normocephalic. Nose: No congestion or rhinorrhea. Eyes: General: No scleral icterus. Extraocular Movements: Extraocular movements intact. Conjunctiva/sclera: Conjunctivae normal. Cardiovascular: Rate and Rhythm: Normal rate and regular rhythm. Pulses: Normal pulses. Heart sounds: S1 normal and S2 normal. Murmur (LSB) heard. Systolic murmur is present with a grade of 1/6. Pulmonary: Effort: No respiratory distress. Breath sounds: No wheezing, rhonchi or rales. Chest: Comments: Healed sternotomy scar. Abdominal: Palpations: Abdomen is soft. Tenderness: There is abdominal tenderness (general, mild, nonspecific tenderness.). There is no guarding or rebound. Musculoskeletal: General: No swelling or tenderness. Normal range of motion. Right lower leg: No edema. Left lower leg: No edema. Skin: Findings: No rash. Neurological: General: No focal deficit present. Mental Status: She is alert. Cranial Nerves: No cranial nerve deficit. Sensory: No sensory deficit. Motor: No weakness. Gait: Gait normal. Psychiatric: Mood and Affect: Mood normal. Behavior: Behavior normal. 01/14/2025 FER-7 ANXIETY SCALE Feeling nervous, anxious, or on edge 3 Nearly every day Not being able to stop or control worrying 2 Over half the days Worrying too much about different things 2 Over half the days Trouble relaxing 2 Over half the days Being so restless that it's hard to sit still 2 Over half the days Being easily annoyed or irritable 1 Several days Feeling afraid as if something awful might happen 2 Over half the days FER-7 Anxiety Score 14 If you checked off any problems, how difficult have these problems made it for you to do your work, take care of things at home, or get along with other people? Very difficult CP PHQ9 Little interest or pleasure 2 - More than half the days Feeling down, depressed, hopeless 2 - More than half the days Trouble falling or staying asleep, sleeping too much 1 - Several days Feeling tired, having little energy 2 - More than half the days Poor appetite or overeating 1 - Several days Feeling bad about yourself, failure or you have let yourself/family down 1 - Several days Trouble concentrating on things 1 - Several days Moving or speaking so slowly, or fidgety or restless 0 - Not at all Thoughts that you would be better off , or of hurting yourself in some way 0 - Not at all How difficult have these problems made things Somewhat difficult Interpretation of Total Score 10-14 Moderate depression ASSESSMENT/PLAN: 1. Severe episode of recurrent major depressive disorder, without psychotic features (HCC) - ICD9: 296.33, ICD10: F33.2 (primary diagnosis) Continue medications for now. - QUETIAPINE 50 MG TABLET - CONSULT TO PSYCHIATRY 2. S/P CABG (coronary artery bypass graft) - ICD9: V45.81, ICD10: Z95.1 - Continue cardiology care, [facility]. 3. PTSD (post-traumatic stress disorder) - ICD9: 309.81, ICD10: F43.10 - Continue medications. - QUETIAPINE 50 MG TABLET - CONSULT TO PSYCHIATRY 4. Screening for cervical cancer - ICD9: V76.2, ICD10: Z12.4 - CONSULT TO GYNECOLOGY 5. Encounter for screening mammogram for malignant neoplasm of breast - ICD9: V76.12, ICD10: Z12.31 - AMELIA SCREENING W KELVIN 6. Encounter for hepatitis C screening test for low risk patient - ICD9: V73.89, ICD10: Z11.59 - HEPATITIS C ANTIBODY IA WITH CONFIRMATION 7. Screening for HIV without presence of risk factors - ICD9: V73.89, ICD10: Z11.4 - HIV 1/2 COMBO WITH REFLEX TO DIFFERENTIATION 8. Hyperlipidemia, unspecified hyperlipidemia type - ICD9: 272.4, ICD10: E78.5 - Controlled - Continue current medications - Counseled on healthy diet and regular exercise - Discussed need for and benefit of weight loss. BMI 30.88 kg/(m^2) 9. Obesity, Class I, BMI 30-34.9 - ICD9: 278.00, ICD10: E66.811 Stable - Behavioral and pharmacological intervention and - Continue current medications 10. Ischemic cardiomyopathy - ICD9: 414.8, ICD10: I25.5 - Continue cardiology care. 11. Irritable bowel syndrome with constipation - ICD9: 564.1, ICD10: K58.1 - Controlled. - POLYETHYLENE GLYCOL 3350 17 GRAM/DOSE ORAL POWDER 12. Acquired hypothyroidism - ICD9: 244.9, ICD10: E03.9 - continue current dose of Synthroid. 13. Generalized anxiety disorder with panic attacks - ICD9: 300.02, 300.01, ICD10: F41.1, F41.0 - Stable. Risks of alprazolam were reviewed. Refilled. - ALPRAZOLAM 0.25 MG TABLET - CONSULT TO PSYCHIATRY 14. Nonrheumatic mitral valve stenosis with insufficiency - ICD9: 394.2, ICD10: I34.2, I34.0 - Continue cardiology care. 15. Non-rheumatic aortic regurgitation - ICD9: 424.1, ICD10: I35.1 - Continue cardiology care. Carrillo Chau MD documented in this encounter [facility] 01-06-2025 Note HNO ID: [id number] Author: JACQUELINE GODWIN MD Service: ? Author Type: Physician Type: Progress Notes Filed: 01/09/2025 14:06 Note Text: Answers submitted by the patient for this visit: Review of Systems Heart Failure (Submitted on 01/06/2025) Fever : No Night sweats: No Recent unintentional weight change: No Vision Disturbance: No Hearing Loss: No A cough: No Difficulty Breathing?: No Chest pain: No Leg Swelling: Yes Skipping or irregular heartbeats?: Yes Feel like passing out?: No Black tarry stools: No Nausea: Yes Diarrhea: Yes Swelling in your abdomen?: No Fill up quickly when you eat?: No Difficulty Urinating?: No Joint pain or stiffness: Yes Muscle aches: Yes A rash: No Dizziness: Yes Headaches: No Heart, Vascular AND [facility] VIRTUAL VIDEO VISIT ESTABLISHED OUTPATIENT VISIT SERVICE DATE: 01/06/2025 Patient: Ariel Nguyen SERVICE TIME: 4:06 PM : 1960 This is a virtual video visit. It required patient-provider interaction for the medical decision making as documented below. Ariel Nguyen has consented to this video encounter. I have communicated my name and active licensure. The patient's identity and physical location were verified at the time of this visit. Either the patient or their legal assisted sales representative has been informed of the risks and benefits of -- and alternatives to -- treatment through a remote evaluation and consents to proceed with the evaluation remotely. Ariel Nguyen is a 64 year old female seen for follow-up. CHIEF COMPLAINT The patient is a 64-year-old female with a history of heart failure, presenting for follow-up. The patient reports experiencing lightheadedness and heaviness in her arms and legs, describing the sensation as walking with concrete bricks. She notes that she must force herself to engage in activities such as walking in the park. She attributes these symptoms to her current medications, particularly hydrochlorothiazide, which she believes causes significant fatigue. She denies any chest pain or discomfort, except for soreness at her incision site. She experiences intermittent dyspnea, particularly after activities such as cleaning the house and showering. She reports needing to pause briefly to catch her breath but denies any prolonged episodes of dyspnea. She monitors her blood pressure regularly and notes that it has been phenomenal, with readings typically in the 120s-130s mmHg, except for one instance of 109/69 mmHg. She expresses concern about her recent lab results, particularly her potassium levels, which were slightly low. She is currently taking furosemide but has not been taking potassium supplements. She is also on a 64-ounce fluid restriction. She has been taking metformin and reports a reduction in abdominal fullness, although she has not noticed significant weight loss on the scale. She has started taking a Super B Complex with folic acid and vitamin C to address her fatigue. She has not been taking Xanax as prescribed (0.25 mg PRN, up to 2-3 times daily) due to difficulty obtaining a prescription refill. She is unsure if her shakiness is due to anxiety or other causes. She is scheduled to see Dr. Cole on the and has a ALEXIS scheduled for the . HISTORY OF PRESENT ILLNESS PAST MEDICAL HISTORY Diagnosis Date Abdominal pain, other specified site Chronic diastolic HF (heart failure) (HCC) Coronary artery disease Hypertension Mitral regurgitation Nausea Obstructive sleep apnea PAST SURGICAL HISTORY Procedure Laterality Date COLPOSCOPY CERVIX UPPER/ADJACENT VAGINA Colposcopy CORONARY ARTERY BYPASS GRAFT ESOPHAGOGASTRODUODENOSCOPY TRANSORAL DIAGNOSTIC 10/13/2012 EGD LAPAROSCOPIC UTERINE NERVE ABLATION PAST SURGICAL HISTORY OF reconstructive surgery on thumb TONSILLECTOMY HX FAMILY HISTORY Problem Relation Age of Onset other (enlarged heart) Mother Cancer Mother Diabetes Mother Hypertension Father Heart Attack Father s/p PCIs and CABG Diabetes Father Heart Father dm/htn Heart Failure Father Stroke Father Heart Paternal Grandfather Hypertension Sister Hyperlipidemia Sister Social History Tobacco Use Smoking status: Former Average packs/day: 1 pack/day for 17.0 years (17.0 ttl pk-yrs) Types: Cigarettes Start date: 05/30/2000 Smokeless tobacco: Never Substance Use Topics Alcohol use: Not Currently Comment: 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 Ascorbic Acid 100 mg tablet Take 100 mg by mouth once daily. aspirin, enteric coated (ASPIRIN, ENTERIC COATED) 81 mg EC tablet Take 81 mg by mouth (more content not included)... [facility] 01-06-2025 History of Present illness Narrative Answers submitted by the patient for this visit: Review of Systems Heart Failure (Submitted on 01/06/2025) Fever : No Night sweats: No Recent unintentional weight change: No Vision Disturbance: No Hearing Loss: No A cough: No Difficulty Breathing?: No Chest pain: No Leg Swelling: Yes Skipping or irregular heartbeats?: Yes Feel like passing out?: No Black tarry stools: No Nausea: Yes Diarrhea: Yes Swelling in your abdomen?: No Fill up quickly when you eat?: No Difficulty Urinating?: No Joint pain or stiffness: Yes Muscle aches: Yes A rash: No Dizziness: Yes Headaches: No [facility] VIRTUAL VIDEO VISIT ESTABLISHED OUTPATIENT VISIT SERVICE DATE: 01/06/2025 Patient: Ariel Nguyen SERVICE TIME: 4:06 PM : 1960 This is a virtual video visit. It required patient-provider interaction for the medical decision making as documented below. Ariel Nguyen has consented to this video encounter. I have communicated my name and active licensure. The patient's identity and physical location were verified at the time of this visit. Either the patient or their legal assisted sales representative has been informed of the risks and benefits of -- and alternatives to -- treatment through a remote evaluation and consents to proceed with the evaluation remotely. Ariel Nguyen is a 64 year old female seen for follow-up. CHIEF COMPLAINT The patient is a 64-year-old female with a history of heart failure, presenting for follow-up. The patient reports experiencing lightheadedness and heaviness in her arms and legs, describing the sensation as walking with concrete bricks. She notes that she must force herself to engage in activities such as walking in the park. She attributes these symptoms to her current medications, particularly hydrochlorothiazide, which she believes causes significant fatigue. She denies any chest pain or discomfort, except for soreness at her incision site. She experiences intermittent dyspnea, particularly after activities such as cleaning the house and showering. She reports needing to pause briefly to catch her breath but denies any prolonged episodes of dyspnea. She monitors her blood pressure regularly and notes that it has been phenomenal, with readings typically in the 120s-130s mmHg, except for one instance of 109/69 mmHg. She expresses concern about her recent lab results, particularly her potassium levels, which were slightly low. She is currently taking furosemide but has not been taking potassium supplements. She is also on a 64-ounce fluid restriction. She has been taking metformin and reports a reduction in abdominal fullness, although she has not noticed significant weight loss on the scale. She has started taking a Super B Complex with folic acid and vitamin C to address her fatigue. She has not been taking Xanax as prescribed (0.25 mg PRN, up to 2-3 times daily) due to difficulty obtaining a prescription refill. She is unsure if her shakiness is due to anxiety or other causes. She is scheduled to see Dr. Cole on the and has a ALEXIS scheduled for the . HISTORY OF PRESENT ILLNESS PAST MEDICAL HISTORY Diagnosis Date Abdominal pain, other specified site Chronic diastolic HF (heart failure) (HCC) Coronary artery disease Hypertension Mitral regurgitation Nausea Obstructive sleep apnea PAST SURGICAL HISTORY Procedure Laterality Date COLPOSCOPY CERVIX UPPER/ADJACENT VAGINA Colposcopy CORONARY ARTERY BYPASS GRAFT ESOPHAGOGASTRODUODENOSCOPY TRANSORAL DIAGNOSTIC 10/13/2012 EGD LAPAROSCOPIC UTERINE NERVE ABLATION PAST SURGICAL HISTORY OF reconstructive surgery on thumb TONSILLECTOMY HX FAMILY HISTORY Problem Relation Age of Onset other (enlarged heart) Mother Cancer Mother Diabetes Mother Hypertension Father Heart Attack Father s/p PCIs and CABG Diabetes Father Heart Father dm/htn Heart Failure Father Stroke Father Heart Paternal Grandfather Hypertension Sister Hyperlipidemia Sister Social History Tobacco Use Smoking status: Former Average packs/day: 1 pack/day for 17.0 years (17.0 ttl pk-yrs) Types: Cigarettes Start date: 05/30/2000 Smokeless tobacco: Never Substance Use Topics Alcohol use: Not Currently Comment: 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 Ascorbic Acid 100 mg tablet Take 100 mg by mouth once daily. aspirin, enteric coated (ASPIRIN, ENTERIC COATED) 81 mg EC tablet Take 81 mg by mouth once daily. atorvastatin (LIPITOR) 80 mg tablet Take 80 mg by mouth once daily. clopidogrel (PLAVIX) 75 mg tablet Take 75 mg by mouth once daily. desvenlafaxine ER (PRISTIQ) 50 mg 24 hr tablet Take 50 mg by mouth once daily. furosemide (LASIX) 40 mg tablet Take 40 mg by mouth every morning. hydrOXYzine HCl (ATARAX) 50 mg tablet Take 50 mg by mouth two times a day as needed. losartan (COZAAR) 50 mg tablet Take 50 mg by mouth once daily. metoprolol tartrate, short acting, (LOPRESSOR) 25 mg tablet Take 25 mg by mouth two times a day. multivitamin tablet Take 1 tablet by mouth every morning. ondansetron orally disintegrating (ZOFRAN ODT) 8 mg disintegrating tablet Take 8 mg by mouth three times a day as needed. OXcarbazepine (TRILEPTAL) 150 mg tablet Take 150 mg by mouth two times a day. pantoprazole DR (PROTONIX) 40 mg tablet Take 40 mg by mouth every morning. QUEtiapine (SEROQUEL) 25 mg tablet Take 25-50 mg by mouth daily at bedtime. levothyroxine (SYNTHROID) 88 mcg tablet Take 88 mcg by mouth once daily. sodium chloride 0.9 %, flush, (BD POSIFLUSH) syringe Inject 2-10 mL intravenously as directed. For Echo procedure metFORMIN (GLUCOPHAGE) 500 mg tablet Take 1 tablet by mouth two times a day. hydrochlorothiazide 25 mg tablet Take 25 mg by mouth once daily. (Patient taking differently: Take 50 mg by mouth once daily.) REVIEW OF SYSTEMS: PHYSICAL EXAMINATION: VIDEO EXAM: (if completed, performed via video enabled technology) GENERAL: alert and appropriate, in no distress, well-hydrated, well nourished, and happy, smiling, interactive PATIENT ENTERED QUESTIONNAIRE SCORES 12/27/2024 PHQ-9 PHQ-2 Score 2 PHQ-9 Score 6 12/27/2024 PROMIS Global Health - (T-Scores - the mean of general population = 50. Five points is a clinically meaningful difference.) Physical T-Score 42.3 Mental T-Score 36.3 ASSESSMENT: 64 year old female from [place], [place], accompanied by her partner. PMHx includes chronic diastolic HF, CAD, NSTEMI s/p CABGx3 08/12/2024 (KOCH-LAD, SVG-RI, SVG-OM), severe MR, HTN, RHONDA with CPAP Was there a cardiac hospitalization/ED visit in the past year: Yes: When and where[place] [facility] [place] [facility] #s/p CABGx3 08/12/2024 (KOCH-LAD, SVG-RI, SVG-OM) #Prior NSTEMI #acute on chronic diastolic HF # severe MR, moderate MS --reportedly #HTN #RHONDA on CPAP NYHA Functional Class: II Stage: C heart failure Target weight: 188 Etiology: Valvular, iCM Symptoms stable. No ADHF. PLAN (Active Outpatient Problems): -TTE -Return on February 11 -Visit with Dr. Cole I personally spent 45 minutes in total time involved in the management and care of this patient. Jacqueline Godwin MD January 06, 2025 4:06 PM documented in this encounter [facility] 12-29-2024 Note HNO ID: [id number] Author: NORMA HALE MA Service: ? Author Type: Watch Crystal Molder Type: Progress Notes Filed: 12/29/2024 15:55 Note Text: EVENT MONITOR DISPOSABLE PATCH INSTRUCTIONS Patient Name: Ariel Banda Nguyen [facility] Number: [id number] Skin prepped and cleansed with alcohol Patch secured to prepped area Monitor Activated Serial #: [id number] Patient Instructed: Prescribed order timeframe Bathing guidelines Usage of event button and diary documentation Return of monitor at the end of prescribed order Call with problems [phone] or [phone] ext. [phone] Patient expresses a good understanding of instructions Norma Hale MA [facility] 12-29-2024 History of Present illness Narrative EVENT MONITOR DISPOSABLE PATCH INSTRUCTIONS Patient Name: Ariel Banda [facility] Number: [id number] Skin prepped and cleansed with alcohol Patch secured to prepped area Monitor Activated Serial #: [id number] Patient Instructed: Prescribed order timeframe Bathing guidelines Usage of event button and diary documentation Return of monitor at the end of prescribed order Call with problems [phone] or [phone] ext. [phone] Patient expresses a good understanding of instructions Norma Hale MA documented in this encounter [facility] 12-29-2024 Note Education (CARDMN) ARIEL NGUYEN ([id number]) 1960 F Date Time Provider Department 12/29/24 3:30 PM [facility] CARDMN Reason for Visit: Event [921] Cmt: Zio patch Primary Visit Diagnosis:Acute on chronic diastolic (congestive) heart failure (HCC) [I50.33] Other Visit Diagnoses:Chronic systolic HF (heart failure) (HCC) [I50.22] Shortness of breath [R06.02] During your visit today, we recorded the following information about you: Allergies As of Date: 12/29/2024 Noted Allergy Reaction CLINDAMYCIN 08/12/2024 10 - Anaphylaxis 18 - Angioedema PENICILLINS 10/06/2012 5 - Intolerance SULFA (SULFONAMIDE ANTIBIOTICS) 11/18/2023 10 - Anaphylaxis 18 - Angioedema Date Reviewed: 12/29/2024 Reviewed by: Karo Santos RN - Fully Assessed Prescriptions as of 12/29/2024 - ALPRAZolam (XANAX) 0.25 mg tablet Take 0.25 mg by mouth as needed. - Ascorbic Acid 100 mg tablet Take 100 mg by mouth once daily. - aspirin, enteric coated (ASPIRIN, ENTERIC COATED) 81 mg EC tablet Take 81 mg by mouth once daily. - atorvastatin (LIPITOR) 80 mg tablet Take 80 mg by mouth once daily. - clopidogrel (PLAVIX) 75 mg tablet Take 75 mg by mouth once daily. - desvenlafaxine ER (PRISTIQ) 50 mg 24 hr tablet Take 50 mg by mouth once daily. - furosemide (LASIX) 40 mg tablet Take 40 mg by mouth every morning. - hydrOXYzine HCl (ATARAX) 50 mg tablet Take 50 mg by mouth two times a day as needed. - losartan (COZAAR) 50 mg tablet Take 50 mg by mouth once daily. - metoprolol tartrate, short acting, (LOPRESSOR) 25 mg tablet Take 25 mg by mouth two times a day. - multivitamin tablet Take 1 tablet by mouth every morning. - ondansetron orally disintegrating (ZOFRAN ODT) 8 mg disintegrating tablet Take 8 mg by mouth three times a day as needed. - OXcarbazepine (TRILEPTAL) 150 mg tablet Take 150 mg by mouth two times a day. - pantoprazole DR (PROTONIX) 40 mg tablet Take 40 mg by mouth every morning. - QUEtiapine (SEROQUEL) 25 mg tablet Take 25-50 mg by mouth daily at bedtime. - levothyroxine (SYNTHROID) 88 mcg tablet Take 88 mcg by mouth once daily. - sodium chloride 0.9 %, flush, (BD POSIFLUSH) syringe Inject 2-10 mL intravenously as directed. For Echo procedure - metFORMIN (GLUCOPHAGE) 500 mg tablet Take 1 tablet by mouth two times a day. - hydrochlorothiazide 25 mg tablet Take 25 mg by mouth once daily. Encounter Status:Closed by NORMA HALE on 12/29/24 [facility] 12-29-2024 Instructions Jacqueline Godwin MD - 12/29/2024 2:41 PM EDT -Will request echo and left heart catheterization from [facility] -Blood work today -Schedule TTE and ALEXIS -Virtual visit 1:30p next 01/06/25 -imaging consultation with Dr. Cole upcoming 03/01 -Ziopatch on J2-2 documented in this encounter [facility] 12-29-2024 History of Present illness Narrative Images from the original note were not included. [facility] SECTION OF HEART FAILURE and CARDIAC TRANSPLANT MEDICINE OUTPATIENT VISIT DATE December 29, 2024 OUTPATIENT VISIT TYPE New Patient PRIMARY CARE PHYSICIAN: [employer] ([employer]) [address] [place] [address] CHIEF COMPLAINT: Establish care Ariel Nguyen is a 64 year old female from [place], [place], accompanied by her partner. PMHx includes chronic diastolic HF, CAD, NSTEMI s/p CABGx3 08/12/2024 (KOCH-LAD, SVG-RI, SVG-OM), severe MR, HTN, RHONDA with CPAP Was there a cardiac hospitalization/ED visit in the past year: Yes: When and where[place] [facility] [place] [facility] HF Nursing Assessment: Chest Pain: no Skipping or irregular heartbeats: yes Shortness of breath at rest: yes Shortness of breath with activity: yes Cough: no Waking up in the middle of the night gasping for air: no Lightheadedness or dizziness: every now and then Feeling like you are going to pass out: no Actually passing out: no Poor energy level: yes Unintentional weight gain: no Unintentional weight loss: no Swelling in your legs,feet, abdomen: no Filling up quickly when you eat: yes HISTORY OF PRESENT ILLNESS: The patient is a 64-year-old female with a history of NM, status post-CABG, and mitral valve regurgitation, presenting for evaluation of dyspnea and mitral valve regurgitation. The patient experienced an NM in July while at [place], [place], and underwent a triple CABG at [facility]. During the procedure, the mitral valve was not addressed due to insufficient severity. Postoperatively, she required a second surgery to repair a leaking graft. She was discharged in September and has not been hospitalized since but has visited the ED multiple times for dyspnea. She reports episodes of AFib following surgery. She reports persistent dyspnea since the surgery, exacerbated by minimal exertion such as climbing eight steps, leading to lightheadedness and a sensation of pressure in her eyes and ears. She denies orthopnea. She monitors her blood pressure daily, noting readings around 126/80 mmHg, with occasional elevations up to 156/93 mmHg in the mornings. She denies any history of diabetes. She experiences significant lower extremity edema if she misses her diuretic doses. She also reports abdominal distension and has a history of paracentesis post-surgery, which drained three liters of fluid. She has not missed any doses of her diuretics since leaving the [facility]. She has a history of severe nausea and vomiting, which has improved since her cardiac surgery. She recently underwent a colonoscopy and endoscopy at [place], which were unremarkable. She denies any history of gastroparesis. She has a history of sleep apnea and uses a CPAP machine. She reports difficulty losing weight, currently weighing 188 lbs, and is taking Zepbound for weight management. She denies any history of diabetes or use of metformin. She is currently taking furosemide 40 mg daily and hydrochlorothiazide. She is not taking potassium supplements. PAST MEDICAL HISTORY Diagnosis Date Abdominal pain, other specified site Chronic diastolic HF (heart failure) (HCC) Coronary artery disease Hypertension Mitral regurgitation Nausea Obstructive sleep apnea PAST SURGICAL HISTORY Procedure Laterality Date COLPOSCOPY CERVIX UPPER/ADJACENT VAGINA Colposcopy CORONARY ARTERY BYPASS GRAFT ESOPHAGOGASTRODUODENOSCOPY TRANSORAL DIAGNOSTIC 10/13/2012 EGD LAPAROSCOPIC UTERINE NERVE ABLATION PAST SURGICAL HISTORY OF reconstructive surgery on thumb TONSILLECTOMY HX SOCIAL HISTORY Social History Tobacco Use Smoking status: Former Average packs/day: 1 pack/day for 17.0 years (17.0 ttl pk-yrs) Types: Cigarettes Start date: 05/30/2000 Smokeless tobacco: Never Substance Use Topics Alcohol use: Not Currently Comment: 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 aspirin, enteric coated (ASPIRIN, ENTERIC COATED) 81 mg EC tablet Take 81 mg by mouth once daily. atorvastatin (LIPITOR) 80 mg tablet Take 80 mg by mouth once daily. clopidogrel (PLAVIX) 75 mg tablet Take 75 mg by mouth once daily. losartan (COZAAR) 50 mg tablet Take 50 mg by mouth once daily. metoprolol tartrate, short acting, (LOPRESSOR) 25 mg tablet Take 25 mg by mouth two times a day. ondansetron orally disintegrating (ZOFRAN ODT) 8 mg disintegrating tablet Take 8 mg by mouth three times a day as needed. OXcarbazepine (TRILEPTAL) 150 mg tablet Take 150 mg by mouth two times a day. pantoprazole DR (PROTONIX) 40 mg tablet Take 40 mg by mouth every morning. QUEtiapine (SEROQUEL) 25 mg tablet Take 25-50 mg by mouth daily at bedtime. hydrochlorothiazide 25 mg tablet Take 25 mg by mouth once daily. (Patient taking differently: Take 50 mg by mouth once daily.) Ascorbic Acid 100 mg tablet Take 100 mg by mouth once daily. desvenlafaxine ER (PRISTIQ) 50 mg 24 hr tablet Take 50 mg by mouth once daily. furosemide (LASIX) 40 mg tablet Take 40 mg by mouth every morning. hydrOXYzine HCl (ATARAX) 50 mg tablet Take 50 mg by mouth two times a day as needed. multivitamin tablet Take 1 tablet by mouth every morning. levothyroxine (SYNTHROID) 88 mcg tablet Take 88 mcg by mouth once daily. REVIEW OF SYSTEMS: CONSTITUTION: Positive for: Night sweats Negative for: Fever and Recent weight change HEENT: Positive for: Hearing loss RESPIRATORY: Positive for: Cough Negative for: Difficulty breathing GASTROINTESTINAL: Positive for: Nausea, Diarrhea, Abdominal distention and Early satiety Negative for: Melena MUSCULOSKELETAL: Positive for: Arthralgias and Myalgias NEUROLOGICAL: Positive for: Dizziness Negative for: Headaches SKIN: Negative for: Rash EYES: Positive for: Visual disturbance CARDIOVASCULAR: Positive for: Arrhythmia Negative for: Chest pain, Leg swelling and Pre-syncope GENITOURINARY: Negative for: Difficulty urinating PATIENT ENTERED DATA: 12/27/2024 KCCQ-12 Scores Physical Limitation Score 83.33 (Class II Heart Failure ) Symptom Frequency Score 70.83 (Class II Heart Failure ) Quality of Life Score 25 (Poor to Fair Quality of Life) Social Limitation Score 58.33 (Class III Heart Failure) Overall Summary Score 59.37 (Class III Heart Failure ) 12/27/2024 PHQ-9 Score 6 12/27/2024 PROMIS Global Health - (T-Scores - the mean of general population = 50. Five points is a clinically meaningful difference.) Physical T-Score 42.3 Mental T-Score 36.3 PHYSICAL EXAMINATION: BP 126/64 (BP Site: Left Arm, BP Position: Sitting) Pulse 61 Ht 167.6 cm (5' 6) Wt 85.3 kg (188 lb) SpO2 98% BMI 30.34 kg/m General: Alert & oriented, no acute distress. Skin: Normal. HEENT: Pupils equal, round. Oral cavity and oropharynx clear. Neck: Supple, no mass. Breast: Deferred. Respiratory: Clear to auscultation bilaterally. Cardiovascular: Jugular venous pressure normal. Regular rate and rhythm, normal S1 and S2, no murmurs or added sounds. Abdomen: Soft, non-tender, non-distended, no masses palpable, no hepatosplenomegaly, normal bowel sounds. Genitourinary: Deferred. MSK: No joint swelling, erythema, or tenderness. Extremities: No clubbing, cyanosis, or edema. CARDIOVASCULAR MEDICINE TESTING: I have personally reviewed the Electrocardiogram, Laboratory Testing, Echocardiogram, and Cardiac Catheterization/Percutaneous Coronary Intervention (PCI). Last CT Result Conclusion CT CHEST WO IVCON Exam End: 08/11/2024 4:02 PM (Final result) ECHO Outside Hospital: [facility] 10/10/2024 Left Ventricle: Size is normal. Findings consistent with mild left ventricular concentric hypertrophy. Normal wall motion. Normal LV systolic function with an approximate EF of 60 - 65%. Left Atrium: Moderately dilated. Aortic Valve: Moderate transvalvular regurgitation. AV PHT is 318.00 ms. Moderate stenosis. AV mean gradient is 24 mmHg. AV peak gradient is 39.0 mmHg. AV peak velocity is 3.1 m/s. AV area by continuity VTI is 1.40 cm2. AV stenosis dimensionless index is 0.44 (reference range, severe: <0.25). Mitral Valve: Moderately calcified posterior leaflet. Moderate posterior mitral annular calcification. Severe regurgitation. Mild to moderate stenosis. MV PHT is 116 ms. MV area by continuity equation is 1.80 cm2. MV mean gradient is 8.0 mmHg. Extracardiac: Left pleural effusion. A complete 2D, color flow doppler and spectral doppler echocardiogram was performed. ECHO Outside Hospital: [facility] 08/09/2024 The left ventricle is normal in size with normal systolic function and no significant wall motion abnormalities (EF = 60-65%). Mild concentric left ventricular hypertrophy. Normal left ventricular diastolic function. Normal right ventricular size and systolic function. Mildly dilated left atrium with normal right atrial size. Mild aortic stenosis. Moderate aortic regurgitation. Mild mitral stenosis. Moderate mitral regurgitation. Mild tricuspid regurgitation. Mild pulmonary hypertension. [facility] Outside Hospital: [facility] 08/10/2024 Findings: Severe and complex coronary artery disease involving the LAD and Lcx systems. Nonobstructive RCA disease. LVDP 11 mm Hg. Coronary Findings Diagnostic Dominance: Right Left Main: The LM bifurcates into the LAD and Lcx. There is no significant disease. Left Anterior Descending: The LAD is a large vessel reaching the apex. It subtends a large D1 and large D2. The proximal LAD contains a 90% stenosis involving the bifurcation of D1. The ostial D1 contains a 99% stenosis. The mid LAD contains a 70% stenosis involving the bifurcation of D2. Left Circumflex: The Lcx is a large nondominant vessel. It subtends a large OM and large LPL. The proximal Lcx contains a 95% stenosis. Right Coronary Artery: The RCA is a large dominant vessel. It subtends a large RPDA and large RPL. The mid RCA contains a 40% stenosis. IMPRESSION: 64 year old female from [place], [place], accompanied by her partner. PMHx includes chronic diastolic HF, CAD, NSTEMI s/p CABGx3 08/12/2024 (KOCH-LAD, SVG-RI, SVG-OM), severe MR, HTN, RHONDA with CPAP Was there a cardiac hospitalization/ED visit in the past year: Yes: When and where[place] [facility] [place] [facility] #s/p CABGx3 08/12/2024 (KOCH-LAD, SVG-RI, SVG-OM) #Prior NSTEMI #acute on chronic diastolic HF # severe MR, moderate MS #HTN #RHONDA on CPAP NYHA Functional Class: II Stage: C heart failure Target weight: 188 Etiology: Valvular, iCM Guideline Directed Medical Therapy Most recent GDMT score: NYHA class 2. Slight limitation of physical activity. Ordinary physical activity results in fatigue, palpitations, dyspnea or angina pectoris (mid CHF). SANDIE/ARB/ARNI YES - losartan Dose titration in progress Beta Avinash YES - metoprolol tartrate (short acting) Dose titration in progress Aldosterone antagonist NO To be addressed SGLT2i NO To be addressed Hydralazine/Isosorbide Dinitrate NO Not indicated Ivabradine NO Not indicated PLAN AND RECOMMENDATIONS: -Will request echo and left heart catheterization from [facility] -Blood work today -Schedule TTE and ALEXIS -Virtual visit 1:30p next 01/06/25 -imaging consultation with Dr. Cole upcoming 03/01 -Tyron on J2-2 I personally interviewed, confirmed and edited the above information as obtained by others I personally spent 65 minutes in total time involved in the management and care of this patient. We discussed natural history of disease, current treatment options, and future potential treatment options. We discussed diet, exercise, other non-medical management as above. Bettina Godwin MD [facility] Section Of Heart Failure and Cardiac Transplant Medicine Heart and Vascular [facility] Desk J3-[address] [place] [address] documented in this encounter [facility] 12-29-2024 Note HNO ID: [id number] Author: JACQUELINE GODWIN MD Service: ? Author Type: Physician Type: Progress Notes Filed: 01/02/2025 15:50 Note Text: Heart, Vascular and Thoracic [facility] SECTION OF HEART FAILURE and CARDIAC TRANSPLANT MEDICINE OUTPATIENT VISIT DATE December 29, 2024 OUTPATIENT VISIT TYPE New Patient PRIMARY CARE PHYSICIAN: Sabine Power ([facility]) [address] [place] [address] CHIEF COMPLAINT: Establish care Ariel Nguyen is a 64 year old female from [place], [place], accompanied by her partner. PMHx includes chronic diastolic HF, CAD, NSTEMI s/p CABGx3 08/12/2024 (KOCH-LAD, SVG-RI, SVG-OM), severe MR, HTN, RHONDA with CPAP Was there a cardiac hospitalization/ED visit in the past year: Yes: When and where: [place]09[place]10[place] [facility] [place] [facility] HF Nursing Assessment: Chest Pain: no Skipping or irregular heartbeats: yes Shortness of breath at rest: yes Shortness of breath with activity: yes Cough: no Waking up in the middle of the night gasping for air: no Lightheadedness or dizziness: every now and then Feeling like you are going to pass out: no Actually passing out: no Poor energy level: yes Unintentional weight gain: no Unintentional weight loss: no Swelling in your legs,feet, abdomen: no Filling up quickly when you eat: yes HISTORY OF PRESENT ILLNESS: The patient is a 64-year-old female with a history of NM, status post-CABG, and mitral valve regurgitation, presenting for evaluation of dyspnea and mitral valve regurgitation. The patient experienced an NM in July while at [place], [place], and underwent a triple CABG at [facility]. During the procedure, the mitral valve was not addressed due to insufficient severity. Postoperatively, she required a second surgery to repair a leaking graft. She was discharged in September and has not been hospitalized since but has visited the ED multiple times for dyspnea. She reports episodes of AFib following surgery. She reports persistent dyspnea since the surgery, exacerbated by minimal exertion such as climbing eight steps, leading to lightheadedness and a sensation of pressure in her eyes and ears. She denies orthopnea. She monitors her blood pressure daily, noting readings around 126/80 mmHg, with occasional elevations up to 156/93 mmHg in the mornings. She denies any history of diabetes. She experiences significant lower extremity edema if she misses her diuretic doses. She also reports abdominal distension and has a history of paracentesis post-surgery, which drained three liters of fluid. She has not missed any doses of her diuretics since leaving the [facility]. She has a history of severe nausea and vomiting, which has improved since her cardiac surgery. She recently underwent a colonoscopy and endoscopy at [place], which were unremarkable. She denies any history of gastroparesis. She has a history of sleep apnea and uses a CPAP machine. She reports difficulty losing weight, currently weighing 188 lbs, and is taking Zepbound for weight management. She denies any history of diabetes or use of metformin. She is currently taking furosemide 40 mg daily and hydrochlorothiazide. She is not taking potassium supplements. PAST MEDICAL HISTORY Diagnosis Date Abdominal pain, other specified site Chronic diastolic HF (heart failure) (HCC) Coronary artery disease Hypertension Mitral regurgitation Nausea Obstructive sleep apnea PAST SURGICAL HISTORY Procedure Laterality Date COLPOSCOPY CERVIX UPPER/ADJACENT VAGINA Colposcopy CORONARY ARTERY BYPASS GRAFT ESOPHAGOGASTRODUODENOSCOPY TRANSORAL DIAGNOSTIC 10/13/2012 EGD LAPAROSCOPIC UTERINE NERVE ABLATION PAST SURGICAL HISTORY OF reconstructive surgery on thumb TONSILLECTOMY HX SOCIAL HISTORY Social History Tobacco Use Smoking status: Former Average packs/day: 1 pack/day for 17.0 years (17.0 ttl pk-yrs) Types: Cigarettes Start date: 05/30/2000 Smokeless tobacco: Never Substance Use Topics Alcohol use: Not Currently Comment: 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 aspirin, enteric coated (ASPIRIN, ENTERIC COATED) 81 mg EC tablet Take 81 mg by mouth once daily. atorvastatin (LIPITOR) 80 mg tablet Take 80 mg by mouth once daily. (more content not included)... [facility] Evaluation note No assessment inform ation available [facility] Work Phone: Evaluation note Diagnosis Chronic congestive heart failure, unspecified heart failure type (HCC)- [facility] Diagnosis Mitral valve insufficiency, unspecified etiology- Primary documented in this encounter [facility] note* Diagnosis Acute on chronic diastolic (congestive) heart failure (HCC)- Primary Chronic systolic HF (heart failure) (HCC) Chronic systolic heart failure Shortness of breath [facility] Diagnosis Acute on chronic diastolic (congestive) heart failure (HCC)- Primary Chronic systolic HF (heart failure) (HCC) Chronic systolic heart failure Ischemic cardiomyopathy Other specified forms of chronic ischemic heart disease Primary hypertension Unspecified essential hypertension Shortness of breath [facility]* Diagnosis Acute on chronic diastolic (congestive) heart failure (HCC)- Primary Chronic systolic HF (heart failure) (HCC) Chronic systolic heart failure Ischemic cardiomyopathy Other specified forms of chronic ischemic heart disease Primary hypertension Unspecified essential hypertension [facility] Diagnosis Encounter for screening mammogram for malignant neoplasm of breast Other screening mammogram documented in this encounter [facility] note* Diagnosis Severe episode of recurrent major depressive disorder, without psychotic features (HCC)- Primary S/P CABG (coronary artery bypass graft) Postsurgical aortocoronary bypass status PTSD (post-traumatic stress disorder) Posttraumatic stress disorder Screening for cervical cancer Screening for malignant neoplasm of the cervix Encounter for screening mammogram for malignant neoplasm of breast Other screening mammogram Encounter for hepatitis C screening test for low risk patient Screening for HIV without presence of risk factors Special screening examination for other specified viral diseases Hyperlipidemia, unspecified hyperlipidemia type Obesity, Class I, BMI 30-34.9 Obesity, unspecified Ischemic cardiomyopathy Other specified forms of chronic ischemic heart disease Irritable bowel syndrome with constipation Irritable bowel syndrome Acquired hypothyroidism Unspecified hypothyroidism Generalized anxiety disorder with panic attacks Nonrheumatic mitral valve stenosis with insufficiency Non-rheumatic aortic regurgitation Aortic valve disorders documented in this encounter [facility] for referral (narrative)* Transition of Care (Routine) - Authorized Specialty Diagnoses / Procedures Referred By Claudette gutierrez Referred To Contact [facility] Jacqueline Godwin MD [address] [place] [address] Phone: tel: fax: [facility] [address] [address] Referral ID Status Reason Start Date Expiration Date Visits Requested Visits Authorized [id number] Authorized PCP Requested Referral 01/09/2025 01/09/2026 1 1 [facility] for visit Narrative* Diagnostic Procedure Only (Routine) - Closed Specialty Diagnoses / Procedures Referred By Claudette gutierrez Referred To Contact [facility] Diagnoses Encounter for screening mammogram for malignant neoplasm of breast Procedures AMELIA SCREENING W KELVIN SCREENING DIGITAL BREAST TOMOSYNTHESIS BI SCREENING MAMMOGRAPHY BI 2-VIEW BREAST INC CAD Carrillo Chau MD [address] [place] [address] Phone: tel: fax: [facility] [address] [place] [phone] Referral ID Status Reason Start Date Expiration Date V isits Requested Visits Authorized [id number] Closed Auto-Generate d Referral 01/14/2025 02/13/2026 1 1 [facility] Summary Purpose Family History No Family History Records FoundNo Family History Records FoundNo Family History Records FoundNo Family History Records FoundNo Family History Records FoundNo Family History Records FoundNo Family History Records FoundNo Family History Records FoundNo Family History Records Found Advance Directives No Advanced Directives Records FoundNo Advanced Directives Records FoundNo Advanced Directives Records FoundNo Advanced Directives Records FoundNo Advanced Directives Records FoundNo Advanced Directives Records FoundNo Advanced Directives Records FoundNo Advanced Directives Records FoundNo Advanced Directives Records Found Chief Complaint and Reason for Visit Chief Complaint AVISE BOX Additional Source Comments INFORMATION SOURCE (unrecogn ized section and content) DATE CREATED AUTHOR 11/20/2017 [facility] DATE CREATED AUTHOR AUTHOR'S ORGANIZ ATION 11/21/2017 [facility] DATE CREATED AUTHOR AUTHOR'S ORGANIZ ATION 03/17/2020 [facility] DATE CREATED AUTHOR AUTHOR'S ORGANIZ ATION 10/02/2020 [facility] DATE CREATED AUTHOR AUTHOR'S ORGANIZ ATION 11/04/2020 [facility] ([place]) DATE CREATED AUTHOR AUTHOR'S ORGANIZ ATION 10/14/2023 [facility] DATE CREATED AUTHOR AUTHOR'S ORGANIZ ATION 11/07/2023 [facility] DATE CREATED AUTHOR AUTHOR'S ORGANIZ ATION 01/15/2025 [facility] Teams (unrecognized sec tion and content) Team Status: Active Member Role Status Dates Sabine BLANCO PA-C Primary Care Provider Active Team Status: Inactive Member Role Status Dates Sabine BLANCO PA-C Primary Care Provider Active Dr. Carmenza Nolan MD Attending Provider, Referring Provider Active Outsole Skiver Relationship Specialty Start Date End Date Sabine Power PA-C PCP - General Family Medicine 09/17/12 Outsole Skiver Relationship Specialty Start Date End Date Sabine Power PA-C PCP - General Family Medicine 09/17/12 Outsole Skiver Relationship Specialty Start Date End Date Sabine Power PA-C PCP - General Family Medicine 09/17/12 Outsole Skiver Relationship Specialty Start Date End Date Sabine Power PA-C PCP - General Family Medicine 09/17/12 Outsole Skiver Relationship Specialty Start Date End Date Carrillo Chau MD [address] [place], [place] [id number] PCP - General Internal Medicine 01/14/25 Analilia Chan, [employer]VIS[employer].TURNTABLE OPERATOR [address] [place], [place] [id number] Internal Medicine 01/14/25 Outsole Skiver Relationship Specialty Start Date End Date Carrillo Chau MD [address] [place], [place] [address] PCP - General Internal Medicine 01/14/25 Analilia Chan, SUPERVIS[employer].TURNTABLE OPERATOR [address] [place] [address] Internal Medicine 01/14/25 Outsole Skiver Relationship Specialty Start Date End Date Carrillo Chau MD [address] [place], [place] [id number] PCP - General Internal Medicine 01/14/25 Analilia Chan, SUPERVIS[employer].TURNTABLE OPERATOR [address] [place], [place] [id number] Internal Medicine 01/14/25 Goals (unrecognized section and content) Goals may be documented in a n alternate section Source Comments (unrecognize d section and content) In the event this informatio n is protected by the Federal Confidentiality of Alcohol and Drug Abuse Patient Records regulations: The Federal rules restrict any use of the information to criminally investigate or prosecute any alcohol or drug abuse patient.[facility] the event this information is protected by the Federal Confidentiality of Alcohol and Drug Abuse Patient Records regulations: The Federal rules restrict any use of the information to criminally investigate or prosecute any alcohol or drug abuse patient.[facility] the event this information is protected by the Federal Confidentiality of Alcohol and Drug Abuse Patient Records regulations: The Federal rules restrict any use of the information to criminally investigate or prosecute any alcohol or drug abuse patient.[facility] the event this information is protected by the Federal Confidentiality of Alcohol and Drug Abuse Patient Records regulations: The Federal rules restrict any use of the information to criminally investigate or prosecute any alcohol or drug abuse patient.[facility] the event this information is protected by the Federal Confidentiality of Alcohol and Drug Abuse Patient Records regulations: The Federal rules restrict any use of the information to criminally investigate or prosecute any alcohol or drug abuse patient.[facility] the event this information is protected by the Federal Confidentiality of Alcohol and Drug Abuse Patient Records regulations: The Federal rules restrict any use of the information to criminally investigate or prosecute any alcohol or drug abuse patient.[facility] the event this information is protected by the Federal Confidentiality of Alcohol and Drug Abuse Patient Records regulations: The Federal rules restrict any use of the information to criminally investigate or prosecute any alcohol or drug abuse patient.[facility] the event this information is protected by the Federal Confidentiality of Alcohol and Drug Abuse Patient Records regulations: The Federal rules restrict any use of the information to criminally investigate or prosecute any alcohol or drug abuse patient.[facility] Reason for Visit (unrecogniz ed section and content) Reason Comments Event Zio patch Reason Comments New Patient Specialty Diagnoses / Procedures Referred By Claudette gutierrez Referred To Contact Cardiology / CARDIOVASCULAR MEDICINE Diagnoses Chronic congestive heart failure, unspecified heart failure type (HCC) DX CONGESTIVE HEART FAILURE //TRIPLE BYPASS SURGERY 08/12/2024 //NEW PT //EKG //CALLER ARIEL Procedures OFFICE/OUTPATIENT NEW MODERATE MDM 45 MINUTES NEW CHF PATIENT Jacqueline Godwin MD [address] [place] [address] Phone: tel: fax: Jacqueline Godwin MD [address] [place] [address] Phone: tel: fax: Referral ID Status Reason Start Date Expiration Date Visits Requested Visits Authorized [id number] Closed OON Notification Letter Financial Clearance Required - OON Payor Clearance Not Met - Pt Rescheduled/Canc elled/Chose Not to Proceed 12/27/2024 06/01/2025 1 1 Reason Comments Follow Up Reason Comments Establish Care FOR RECORDS PERTAINING TO PATIENTS WHO ARE OR HAVE BEEN ENROLLED IN A CHEMICAL DEPENDENCY/SUBSTANCEABUSE PROGRAM, SOME INFORMATION MAY BE OMITTED. This clinical summary was aggregated from multiple sources. Caution should be exercised in using it in the provision of clinical care. This summary normalizes information from multiple sources, and as a consequence, information in this document may materially change the coding, format and clinical context of patient data. In addition, data may be omitted in some cases. CLINICAL DECISIONS SHOULD BE BASED ON THE PRIMARY CLINICAL RECORDS. [employer] provides no warranty or guarantee of the accuracy or completeness of information in this document.
[2025-01-18 09:27] LABS: AST(SGOT) 39 U/L (<=31); Alanine Aminotransfer ALT/SGPT 41 U/L (<=34); Albumin, Serum 5.0 g/dL (3.4-4.8); Alkaline Phosphatase 120 U/L (35-104); Anion Gap 20 (5-15); BUN 20 mg/dL (4-19); BUN/Creat Ratio 21.9 RATIO (10-20); Calcium,Total 10.3 mg/dL (7.6-11.0); Carbon Dioxide 22.5 mmol/L (21.0-32.0); Chloride 98 mmol/L (98-108); Globulin 3.3 g/dL (2.2-4.2); Glucose 209 mg/dL (70-99); Lipase 32 U/L (13-75); Potassium 4.0 mmol/L (3.3-5.1)
[2025-01-18 10:09] VITALS: BP 182/71; PULSE 77; BMI 30.2
[2025-01-18] MEDS: DiphenhydrAMINE 25 MG, ChlorproMAZINE 25 MG in 0.9% Normal Saline (100mL Bag) 98.5 ML 200 MG IV (11:28)
[2025-01-18 12:46] VITALS: BP 158/73; PULSE 97; RESP 14; TEMP 37.1; O2SAT 97
[2025-01-18 13:05] VITALS: BP 156/87; PULSE 89; RESP 16; TEMP 36.5; O2SAT 97
== END 2025-01-18 13:10 | disposition home or self-care (01) ==
PROVIDERS: Emergency Provider Emergency Medicine; PCP Family Medicine; Visit Provider Emergency Medicine
DX: R11.2 Nausea with vomiting, unspecified (principal); K31.84 Gastroparesis; R73.9 Hyperglycemia, unspecified; Z87.891 Personal history of nicotine dependence
CPT/HCPCS: 96361; 96365; 96375; 99283; 80053; 83690; 85025; A4216; J2405

== ENCOUNTER 2025-01-19 08:18 | Inpatient (IN) | payer MEDICARE, OTHER, SELFPAY ==
[2025-01-19] VITALS (7 sets, daily range): BP systolic 131–200; BP diastolic 69–90; PULSE 71–90; RESP 16–18; TEMP 36.1–37; O2SAT 96–100; BMI 29.6
--- NOTE | 2025-01-19 08:39 | EKG12_ITS ---
Test Reason : Blood Pressure : */* mmHG Vent. Rate : 72 BPM Atrial Rate : 72 BPM P-R Int : 146 ms QRS Dur : 100 ms QT Int : 414 ms P-R-T Axes : 57 -15 31 degrees QTcB Int : 453 ms Normal sinus rhythm Moderate voltage criteria for LVH, may be normal variant ( R in aVL , Jigar product ) Nonspecific ST abnormality Abnormal ECG Confirmed by CLOVIS HICKMAN, ACOSTA ([id number]), film or videotape editor OSVALDO ESTRADA ([id number]) on 01/20/2025 1:32:53 PM Referred By: Confirmed By: ACOSTA BRANNON MD
--- NOTE | 2025-01-19 08:43 | EDS_ITS ---
HPI History of Present Illness Chief Complaint: Nausea/Vomiting Narrative Narrative: Patient is a 65-year-old female presenting to the emergency department for nausea and vomiting. Patient has a past medical history as below including gastroparesis and irritable bowel disease. Patient states that 2 days ago in the evening she developed nausea with multiple episodes of nonbloody, nonbilious vomiting. States that she was here yesterday morning for the same complaint and was given a few different medications and felt improved and was discharged home. She states that she has been trying Phenergan suppositories at home with no relief of the symptoms. States this feels like her gastroparesis. Reports that her bowel movements have been normal, no diarrhea or constipation. No blood. No dysuria or hematuria. No chest pain or shortness of breath. Patient does use marijuana products daily. [facility] Medical History Right shoulder pain Home Medications ?Medication ?Instructions ?Recorded ?Last Taken ?Type escitalopram oxalate 20 mg tablet 20 mg PO DAILY 10/06 Unknown History (Lexapro) hydroxychloroquine 200 mg tablet 200 mg PO DAILY 10/06 Unknown History (Plaquenil) hydroxyzine HCl 10 mg tablet 10 mg PO ONCE 10/07/23 Un known History levothyroxine 88 mcg capsule 88 mcg PO DAILY 10/07/23 Unknown History losartan 25 mg tablet 25 mg PO DAILY 10/07/23 Unkn own History promethazine 25 mg rectal 25 mg OK Q6H PRN nausea and 01/18/25 Unknown Rx suppository vomiting #12 ea Allergy/AdvReac Type Severity Reaction Status Date / Time clindamycin AdvReac Other Verified 01/19/25 08:21 Penicillins AdvReac Other Verified 01/19/25 08:21 Sulfa (Sulfonamide AdvReac Other Verified 01/19/25 08:21 Antibiotics) Family History Father Hypertension CVA (cerebral vascular accident) Myocardial infarction Arthritis Mother Arthritis Cancer Sister Hypertension Arthritis Cancer Surgical History H/O thumb surgery H/O wrist surgery Social History household members: significant other Smoking Status: Former smoker alcohol intake: never what type of physical activity do you participate in: walking ROS ROS ED ROS Narrative see HPI EXAM Physical Exam Narrative Exam Narrative: Vital signs: Reviewed General: Alert and orientedx3. No acute distress HEENT: Head is normocephalic and atraumatic, sinuses nontender, pupils equal round and reactive. Nares are patent. Oropharynx and throat exams normal. Neck: Supple without lymphadenopathy nontender Cardiovascular: Regular rate and rhythm, no murmurs. No rubs or gallops. Normal S1 and S2 Respiratory: Clear to auscultation bilaterally. No wheezes, rales, rhonchi Abdominal: Soft and mildly tender to palpation in epigastric region. Normal bowel sounds. No guarding or rebound. Nonsurgical abdomen Extremities: No tenderness. No bruising. Normal range of motion. Normal sensation. Skin: No rash or redness. Neurological: Cranial nerves II through XII are grossly intact. Normal strength and sensation. Normal cerebellar function The rest of the physical exam is unremarkable Const Vital Signs: 01/19/25 08:19 01/19/25 10:19 Temperature 96.9 F L Temperature Source Temporal Pulse Rate 74 85 Respiratory Rate 16 18 Blood Pressure 188/88 H 200/90 H Blood Pressure Mean 121 126 Pulse Ox 100 96 Oxygen Delivery Method Room Air Room Air MDM MDM MDM Narrative Medical decision making narrative: Patient is a 65-year-old female presenting to the emergency department for nausea and vomiting. Patient was seen and examined. Vitals are stable. Patient resting in bed comfortably no acute distress. Differential includes but is not limited to: Gastroparesis, cannabis hyperemesis syndrome, gastroenteritis, pancreatitis, cholecystitis, diverticulitis Fluids started and patient given Haldol for symptomatic control. EKG shows normal sinus rhythm. There is some mild ST depression in V4 through V6, no reciprocal changes. No dysrhythmia. CBC with no leukocytosis and normal hemoglobin. CMP with mild transaminitis, otherwise no significant abnormalities. Lipase elevated at 464. Given the patient was just here yesterday with similar complaints, CT of the abdomen was obtained and shows sludge or tiny gallstones within the gallbladder lumen. Correlation with ultrasound recommended. Punctate calcifications in the body of the pancreas. Status post hysterectomy. Sigmoid diverticulosis. Gallbladder ultrasound obtained and shows sludge but no pericholecystic fluid and no thickened gallbladder wall. Patient still having nausea and vomiting, Reglan given. I suspect the patient's nausea and vomiting is secondary to her cannabis hyperemesis and gastroparesis. Unable to tolerate PO even after the reglan. Will require admission for intractable nausea and vomiting with inability to tolerate p.o. Will admit to hospitalist. Clinical impression Intractable nausea and vomiting Pancreatitis Cannabis hyperemesis History & Record Review Discussion w/independent historian: Patient and Significant other Additional record(s) reviewed:: Prior ED visit Lab Data Attestation: I reviewed the patient's lab results. Labs: Laboratory Results - last 24 hr 01/19/25 01/19/25 10:13 10:44 WBC 9.4 RBC 4.58 Hgb 13.5 Hct 39.0 MCV 85.2 MCH 29.5 MCHC 34.6 RDW Std Deviation 42.1 RDW Coeff of Jaimie 13.6 Plt Count 206 MPV 9.7 Immature Gran % (Auto) 0.200 Neut % (Auto) 84.9 H Lymph % (Auto) 9.5 L Allen % (Auto) 5.0 Eos % (Auto) 0.2 Baso % (Auto) 0.2 Absolute Neuts (auto) 7.9 H Absolute Lymphs (auto) 0.89 Nucleated RBC % 0 Sodium 141 Potassium 3.7 Chloride 104 Carbon Dioxide 23.2 Anion Gap 13 BUN 16 Creatinine 0.76 Est GFR (MDRD) Non-Af 87 BUN/Creatinine Ratio 20.4 H Glucose 130 H Calcium 9.0 Total Bilirubin 0.56 AST 43 H ALT 50 H Alkaline Phosphatase 99 Troponin T High Sens 25 H Total Protein 7.3 Albumin 4.6 Globulin 2.7 Albumin/Globulin Ratio 1.7 Lipase 464 H Urine Color Yellow Urine Clarity Clear Urine pH 6.0 Ur Specific [place] 1.015 Urine Protein 30 H Urine Glucose (UA) Normal Urine Ketones 15 H Urine Occult Blood 25 H Urine Nitrite Negative Urine Bilirubin Negative Urine Urobilinogen Normal Ur Leukocyte Esterase 500 H Urine RBC 0 SEEN Urine WBC 10-25 SEEN Ur Squamous Epith Cells 0-5 SEEN Urine Bacteria 0 SEEN Urine Mucus 0 SEEN Radiography Diagnostic Testing: Clinical Impression(s) from Imaging Studies Abdomen/Pelvis CT 01/19/25 09:15 IMPRESSION: Sludge or tiny gallstones within the gallbladder lumen. Correlation with ultrasound recommended. Punctate calcifications in the body of the pancreas. Status post hysterectomy. Sigmoid diverticulosis. Reading Location: [id number] Gallbladder Ultrasound 01/19/25 10:11 IMPRESSION: Sludge is seen within the gallbladder lumen. Reading Location: [facility] Discharge Plan Triage Chief Complaint: Nausea/Vomiting ED Provider: Mikki Hall Dx/Rx/DC Orders Prescriptions: No Action escitalopram oxalate [Lexapro] 20 mg tablet 20 mg PO DAILY losartan 25 mg tablet 25 mg PO DAILY levothyroxine 88 mcg capsule 88 mcg PO DAILY hydroxyzine HCl 10 mg tablet 10 mg PO ONCE hydroxychloroquine [Plaquenil] 200 mg tablet 200 mg PO DAILY promethazine 25 mg suppository 25 mg OK Q6H PRN (Reason: nausea and vomiting) Qty: 12 0RF Primary Care Provider: [facility] Referrals: [facility] PACorin[facility] [Primary Care Provider] - Print Language: Czech
[2025-01-19] MEDS: 0.9% Normal Saline (1000mL) 1,000 ML 1000 ML IV (08:56)
--- NOTE | 2025-01-19 09:15 | CT_ITS ---
PROCEDURE: ABDOMEN/PELVIS WITHOUT CONT 01/19/2025 REASON FOR EXAM: 1 day history of nausea and vomiting. History of gastroparesis and diverticulitis. TECHNIQUE: ABDOMEN/PELVIS WITHOUT CONT Noncontrast technique limits evaluation of the abdominal and pelvic viscera. Coronal and Sagittal reconstruction series were provided. One or more dose reduction techniques were used (e.g., Automated exposure control, adjustment of the mA and/or kV according to patient size, use of iterative reconstruction technique). RADIATION DOSE SUMMARY: CTDlvol: 10.93 mGy DLP: 581.78 mGycm COMPARISON: None FINDINGS: Lung bases: Mild increased markings in the lingular segment of the left upper lobe suggestive of scarring. Prior mitral valve replacement. Mild coronary artery calcification. Liver: Normal size. No obvious mass. Gallbladder: Questionable sludge or tiny gallstones along the dependent portion of the gallbladder lumen. Correlation with ultrasound recommended. Spleen: Normal size. Pancreas: Punctate calcifications in the body of the pancreas. Adrenals: Unremarkable Kidneys: No urolithiasis. No hydronephrosis. Bladder: Unremarkable Reproductive Organs: Prior hysterectomy. Adnexal regions are unremarkable. Bowel: Colonic diverticulosis without diverticulitis. Appendix: The appendix is not identified. There is no inflammatory process identified in the right lower quadrant to suggest appendicitis. Lymph nodes: Unremarkable. Vasculature: Mild diffuse atherosclerotic calcifications are noted. Peritoneum / Retroperitoneum: Unremarkable Bones: Degenerative changes of the spine. CT/Abdomen/Pelvis without Cont IMPRESSION: Sludge or tiny gallstones within the gallbladder lumen. Correlation with ultra sound recommended. Punctate calcifications in the body of the pancreas. Status post hysterectomy. Sigmoid diverticulosis. Reading Location: [id number]
--- NOTE | 2025-01-19 10:11 | US_ITS ---
PROCEDURE: GALLBLADDER 01/19/2025 REASON FOR EXAM: SLUDGE, ABDOMINAL PAIN COMPARISON: Prior CT scan done earlier in the day. FINDINGS: Liver: Grossly normal size and echotexture. Gallbladder: Sludge is seen within the gallbladder lumen. The gallbladder wall is not thickened. Common bile duct: Normal measuring 6.1 mm . Pancreas: Normal Other: Visualized portions of the right kidney are unremarkable. No right upper quadrant ascites. US/Gallbladder IMPRESSION: Sludge is seen within the gallbladder lumen. Reading Location: [id number]
[2025-01-19 10:25] LABS: Hematocrit 39.0 % (37-47); Hemoglobin 13.5 g/dL (12.0-15.0); Immature Granulocytes Count 0.020 X10^3/uL (0.0-0.0); Mean Corp Hgb Conc 34.6 g/dL (32-36); Mean Corpuscular Volume 85.2 fL (81-99); Mean Platelet Vol. 9.7 fl (6.2-12.0); NRBC Flagged by Analyzer 0 % (0-5); Platelet Count 206 K/mm3 (150-450); RBC Distribution Width CV 13.6 % (11.6-14.6); RBC Distribution Width SD 42.1 fl (35.1-43.9); Red Blood Count 4.58 M/mm3 (4.2-5.4); White Blood Count 9.4 K/mm3 (4.4-11.0)
[2025-01-19 10:55] LABS: Mucous, Urine 0 SEEN /hpf (<or=2+); Red Blood Cells-Urine 0 SEEN /hpf (0-5)
[2025-01-19 10:58] LABS: Color, Urine Yellow (Yellow); Glucose, Dipstick Normal (Normal); Ketone-Dipstick 15 mg/dl (Negative); Leukocyte Esterase-Dipstick 500 /ul (Negative); Nitrite-Dipstick Negative (Negative); Occult Blood-Urine 25 /ul (Negative); Protein-Dipstick 30 mg/dl (Negative); Specific Gravity, Urine 1.015 (1.002-1.030); Urine Bilirubin Dipstick Negative (Negative)
[2025-01-19 11:00] LABS: AST(SGOT) 43 U/L (<=31); Alanine Aminotransfer ALT/SGPT 50 U/L (<=34); Albumin, Serum 4.6 g/dL (3.4-4.8); Alkaline Phosphatase 99 U/L (35-104); Anion Gap 13 (5-15); BUN 16 mg/dL (4-19); BUN/Creat Ratio 20.4 RATIO (10-20); Calcium,Total 9.0 mg/dL (7.6-11.0); Carbon Dioxide 23.2 mmol/L (21.0-32.0); Chloride 104 mmol/L (98-108); Globulin 2.7 g/dL (2.2-4.2); Glucose 130 mg/dL (70-99); Potassium 3.7 mmol/L (3.3-5.1)
[2025-01-19 11:07] LABS: Squamous Epithelial Cells - UA 0-5 SEEN /hpf (5-10)
[2025-01-19 11:12] LABS: Lipase 464 U/L (13-75)
--- NOTE | 2025-01-19 11:12 | ED.RN ---
ultrasound called at this time to check to see when pt would be taken down for imaging. ultrasound states that the schedule has been booked up and will be taken to ultrasound around 1140
[2025-01-19 12:21] LABS: Troponin T High Sensitivity 25 ng/L (<=14)
[2025-01-19 15:41] LABS: Troponin T High Sens 2 HR 23 ng/L (<=14)
[2025-01-19] MEDS: 0.45% Normal Saline 1,000 ML 150 ML IV ×2 (16:22→23:24)
--- NOTE | 2025-01-19 18:42 | PCM.HP.STD ---
HPI - General General Date of Admission: 01/19/25 Date of Service: 01/19/25 Chief Complaint: Persistent nausea and vomiting HPI Narrative ARIEL JACK, is a 65 F who presents to the room at [facility] for persistent nausea and vomiting, this started 48 hours ago after she ate some vegetables with [place] dressing on it. Patient is a daily user of marijuana. Labs were obtained and were unremarkable, abdominal and pelvic CT showed sludge or tiny gallstones within the gallbladder lumen and punctate calcifications in the body of the pancreas. Abdominal ultrasound reveals sludge within the gallbladder lumen. Patient was given IV Haldol in the emergency room but still had nausea. Patient will be admitted to [facility] for persistent nausea and vomiting-suspicious for cannabis hyperemesis syndrome (CHS). I have elected to place her on IV Reglan and give her IV Compazine initially for nausea and vomiting, it may be necessary to adjust these medications if she does not respond. Patient will be given IV fluids [facility] Medical History Right shoulder pain Home Medications ?Medication ?Instructions ?Recorded ?Last Taken ?Type levothyroxine 88 mcg capsule 88 mcg PO DAILY 10/07/23 Unknown History losartan 25 mg tablet 50 mg PO DAILY 10/07/23 Unknown History alprazolam 0.25 mg tablet 0.25 mg PO DAILY PRN anxiety 01/19/25 Unknown History atorvastatin 80 mg tablet 80 mg PO QHS 01/19/25 Unknown History clopidogrel 75 mg tablet 75 mg PO DAILY 01/19/25 Unknown History desvenlafaxine succinate 50 mg 50 mg PO DAILY 01/19/25 Unknown History tablet,extended release 24 hr furosemide 20 mg tablet 20 mg PO DAILY 01/19/25 Unknown History hydroxyzine HCl 25 mg tablet 50 mg PO BID 01/19/25 Unknown History metoprolol tartrate 25 mg tablet 25 mg PO DAILY 01/19/25 Unknown History oxcarbazepine 150 mg tablet 150 mg PO BID 01/19/25 Unknown History pantoprazole 40 mg tablet,delayed 40 mg PO DAILY 01/19/25 Unknown History release quetiapine 25 mg tablet 25 - 50 mg PO QHS PRN PRN insomnia 01/19/25 Unknown History Allergy/AdvReac Type Severity Reaction Status Date / Time clindamycin AdvReac Other Verified 01/19/25 08:21 Penicillins AdvReac Other Verified 01/19/25 08:21 Sulfa (Sulfonamide AdvReac Other Verified 01/19/25 08:21 Antibiotics) Family History Father Hypertension CVA (cerebral vascular accident) Myocardial infarction Arthritis Mother Arthritis Cancer Sister Hypertension Arthritis Cancer Surgical History H/O thumb surgery H/O wrist surgery Social History household members: significant other Smoking Status: Former smoker alcohol intake: never what type of physical activity do you participate in: walking ROS Constitutional Constitutional: Denies anorexia, change in weight, fever(s), night sweats or weakness Eyes Eyes: Denies blurry vision, change in vision, discharge from eye(s) or eye pain Cardiovascular Cardiovascular: Denies chest pain, claudication, edema or palpitations Respiratory/Chest Respiratory/Chest: Denies cough, hemoptysis, shortness of breath at rest or shortness of breath with exertion Gastrointestinal Gastrointestinal: Reports abdominal pain, nausea and vomiting; Denies constipation, diarrhea, hematemesis, hematochezia or melena Genitourinary Genitourinary: Denies dysuria, hematuria, urinary frequency, urinary hesitancy, urinary incontinence or urinary urgency Musculoskeletal Musculoskeletal: Denies back pain, joint pain, joint stiffness, joint swelling, myalgias or neck pain Neurologic Neurologic: Denies abnormal gait, abnormal speech, dizziness, focal weakness, headache(s), loss of vision, numbness, other visual disturbances, paresthesias, syncope or tingling Psychiatric Psychiatric: Denies anxiety, cognitive impairment, depression, irritability, mood swings or suicidal ideation Endocrine Endocrinology: Denies change in body appearance, cold intolerance, excessive sweating, heat intolerance, polydipsia or polyuria Hematologic/Lymphatic Hematologic/Lymphatic: Denies none, anemia, easy bleeding, easy bruising or lymphadenopathy Allergic/Immunologic Allergic/Immunologic: Denies rhinitis, urticaria, eczemia or asthma Vital Signs Vital Signs Vital Signs: 01/19/25 08:19 01/19/25 10:19 01/19/25 12:00 Temperature 96.9 F L Temperature Source Temporal Pulse Rate 74 85 77 Respiratory Rate 16 18 18 Respiratory Effort Respiratory Depth Respiratory Pattern Blood Pressure 188/88 H 200/90 H 187/90 H Blood Pressure Mean 121 126 122 Blood Pressure Source Blood Pressure Position Blood Pressure Location Pulse Ox 100 96 99 Oxygen Delivery Method Room Air Room Air 01/19/25 12:31 01/19/25 16:50 01/19/25 16:54 Temperature 98.6 F 98.4 F Temperature Source Oral Pulse Rate 77 90 Respiratory Rate 18 16 Respiratory Effort Normal Non-Labored Respiratory Depth Normal Respiratory Pattern Normal Blood Pressure 187/90 H 164/72 H Blood Pressure Mean 122 102 Blood Pressure Source Blood Pressure Position Blood Pressure Location Pulse Ox 99 97 Oxygen Delivery Method Room Air Room Air 01/19/25 16:59 Temperature 98.4 F Temperature Source Oral Pulse Rate 90 Respiratory Rate 16 Respiratory Effort Respiratory Depth Respiratory Pattern Blood Pressure 164/72 H Blood Pressure Mean 102 Blood Pressure Source Monitor Blood Pressure Position Semi-Fowlers Blood Pressure Location Left Arm Pulse Ox 97 Oxygen Delivery Method Room Air Weight Weight: 83.3 kg Body Mass Index (BMI) 29.6 Physical Exam Const alert, oriented x3 and no apparent distress Constitutional Narrative: Patient appears uncomfortable due to nausea General Appearance: cooperative, well kempt and well developed Orientation / Consciousness: awake, oriented to person, oriented to place and oriented to time HEENT normocephalic, head/scalp atraumatic, hearing grossly normal bilaterally and moist oral mucous membranes Eyes PERRL, EOMs intact bilaterally and conjunctivae normal Neck supple, no JVD, thyroid normal and no carotid bruits General: trachea midline Resp normal respiratory effort, no retractions, no use of accessory muscles and clear to auscultation bilaterally Auscultation: Negative for rales, rhonchi or wheezes Cardio regular rate, regular rhythm, S1 normal heart sound, S2 normal heart sound, no murmurs, no rub and no gallops GI normal to inspection, nondistended, normoactive bowel sounds, soft to palpation, non-tender and non-distended Extremity no clubbing, cyanosis or edema Skin no rashes or lesions noted General Skin Exam: no breakdown Neuro oriented x3, CN's II-XII intact bilaterally, no focal motor deficits and no sensory deficits noted Sensorium / Orientation: awake and alert Speech: speech normal Psych affect normal Results Lab / Micro Data 01/19/25 10:13 01/19/25 10:13 Labs: Laboratory Results - last 24 hr 01/19/25 10:13: WBC 9.4, RBC 4.58, Hgb 13.5, Hct 39.0, MCV 85.2, MCH 29.5, MCHC 34.6, RDW Std Deviation 42.1, RDW Coeff of Jaimie 13.6, Plt Count 206, MPV 9.7, Immature Gran % (Auto) 0.200, Neut % (Auto) 84.9 H, Lymph % (Auto) 9.5 L, Robertson % (Auto) 5.0, Eos % (Auto) 0.2, Baso % (Auto) 0.2, Absolute Neuts (auto) 7.9 H, Absolute Lymphs (auto) 0.89, Nucleated RBC % 0, Sodium 141, Potassium 3.7, Chloride 104, Carbon Dioxide 23.2, Anion Gap 13, BUN 16, Creatinine 0.76, Est GFR (MDRD) Non-Af 87, BUN/Creatinine Ratio 20.4 H, Glucose 130 H, Calcium 9.0, Total Bilirubin 0.56, AST 43 H, ALT 50 H, Alkaline Phosphatase 99, Troponin T High Sens 25 H, Total Protein 7.3, Albumin 4.6, Globulin 2.7, Albumin/Globulin Ratio 1.7, Lipase 464 H 01/19/25 10:44: Urine Color Yellow, Urine Clarity Clear, Urine pH 6.0, Ur Specific [place] 1.015, Urine Protein 30 H, Urine Glucose (UA) Normal, Urine Ketones 15 H, Urine Occult Blood 25 H, Urine Nitrite Negative, Urine Bilirubin Negative, Urine Urobilinogen Normal, Ur Leukocyte Esterase 500 H, Urine RBC 0 SEEN, Urine WBC 10-25 SEEN, Ur Squamous Epith Cells 0-5 SEEN, Urine Bacteria 0 SEEN, Urine Mucus 0 SEEN 01/19/25 14:29: Troponin T Hi Sens 2 Hr 23 H Imaging Radiology Impression Abdomen/Pelvis CT 01/19/25 09:15 IMPRESSION: Sludge or tiny gallstones within the gallbladder lumen. Correlation with ultrasound recommended. Punctate calcifications in the body of the pancreas. Status post hysterectomy. Sigmoid diverticulosis. Reading Location: [id number] Gallbladder Ultrasound 01/19/25 10:11 IMPRESSION: Sludge is seen within the gallbladder lumen. Reading Location: [id number] Assessment & Plan Assessment/Plan (1) Nausea and vomiting: PLAN: Plan 1. Uncontrolled nausea and vomiting-possibly secondary to chronic cannabis usage, patient will be admitted to [facility], she will be placed on telemetry in case IV Haldol is used for her nausea, she will be given IV fluids, she was placed on IV Reglan and Compazine. #2 history of gastroparesis-patient is not on any Reglan, I will add IV Reglan to her medications #3 coronary artery disease-this is stable at this time #4 heart murmur-this could be secondary to mitral regurgitation-patient knows that she has a heart murmur but does not know the origin of it. It may be necessary to contact her financial services rep to see when her last echo was performed. Total clinical time spent by myself addressing the patient's medical issues, reviewing all of her data, and collaborating with her care team: 55-minute Charges/Coding Visit Charges Inpatient E&M: 48101 Init Hosp L2
[2025-01-19] MEDS: hydrOXYzine PAM 25 MG Capsule 50 MG PO (23:24)
[2025-01-19] MEDS: Heparin Injection (Vial) 5,000 UNIT/ML VIAL 5000 UNIT SC (23:24)
[2025-01-20] VITALS (7 sets, daily range): BP systolic 117–172; BP diastolic 64–90; PULSE 60–92; RESP 16–18; TEMP 36.6–37; O2SAT 95–100
[2025-01-20] MEDS: hydrOXYzine PAM 25 MG Capsule 50 MG PO ×2 (08:24→21:19)
[2025-01-20] MEDS: Heparin Injection (Vial) 5,000 UNIT/ML VIAL 5000 UNIT SC ×2 (08:25→21:18)
[2025-01-20] MEDS: 0.45% Normal Saline 1,000 ML 150 ML IV ×2 (08:53→16:56)
--- NOTE | 2025-01-20 13:44 | CHAPLAIN ---
Type of Pastoral Visit ___ Initial Visit ___ Follow-up Visit ___ On-call Visit ___ General Patient Visit ___ Spiritual Assessment ___ Family Conference ___ Bereavement ___ Rapid Response ___ Code Blue ___ Other (describe below) Pastoral Care Referral From ___ Patient ___ Family ___ Nurse ___ Physician ___ Aluminum Sheet Cutter ___ Airframe Technician ___ Other (describe below) Sacrament/Intervention ___ Active listening ___ Anointing ___ Jainism ___ Bereavement ___ Communion ___ Lauren exploration ___ ___ Life review ___ Prayer ___ Reconciliation ___ Sacrament of Sick ___ Supportive presence ___ Wedding ___ Other (describe below) Pastoral Comments two attempts made to visit today and patient is sound asleep in a darkened room with closed door
[2025-01-20] MEDS: 0.9% Saline Lock 10 ML Syringe IV (17:57)
--- NOTE | 2025-01-20 18:40 | PN.HOSP_ITS ---
Reason for Visit Chief Complaint: Persistent nausea and vomiting Subjective Subjective Patient was seen and examined today, she wanted to take a shower and in order to do that telemetry had to be discontinued, she stated her Haldol IV was not working for her nausea so I discontinued the IV Haldol and took her off telemetry. I added Antivert to her medications and increased her Valium dosage. She states that she feels the Valium has done the most to help her nausea. Patient remains on IV Reglan and IV fluids. Objective Data Objective Data Vital Signs: Vital Signs Temp Pulse Resp BP Pulse Ox O2 Del Method 98.6 F 80 16 165/73 H 96 Room Air 01/20/25 14:21 01/20/25 14:21 01/20/25 14:21 01/20/25 14:21 01/20/25 14:21 01/20/25 14:21 Oxygen Delivery Method Room Air Weight: 83.3 kg Body Mass Index (BMI) 29.6 Intake & Output: Intake and Output for Last 24 Hours 01/18/25 01/19/25 01/20/25 23:59 23:59 23:59 Intake Total 1999 Balance 1999 Lab / Micro Data 01/19/25 10:13 01/19/25 10:13 Physical Exam Narrative alert, oriented x3 and no apparent distress Constitutional Narrative: Patient appears uncomfortable due to nausea General Appearance: cooperative, well kempt and well developed Orientation / Consciousness: awake, oriented to person, oriented to place and oriented to time HEENT normocephalic, head/scalp atraumatic, hearing grossly normal bilaterally and moist oral mucous membranes Eyes PERRL, EOMs intact bilaterally and conjunctivae normal Neck supple, no JVD, thyroid normal and no carotid bruits General: trachea midline Resp normal respiratory effort, no retractions, no use of accessory muscles and clear to auscultation bilaterally Auscultation: Negative for rales, rhonchi or wheezes Cardio regular rate, regular rhythm, S1 normal heart sound, S2 normal heart sound, patient has a 3/6 systolic murmur at the left sternal border and apex GI normal to inspection, nondistended, normoactive bowel sounds, soft to palpation, non-tender and non-distended Extremity no clubbing, cyanosis or edema Skin no rashes or lesions noted General Skin Exam: no breakdown Neuro oriented x3, CN's II-XII intact bilaterally, no focal motor deficits and no sensory deficits noted Sensorium / Orientation: awake and alert Speech: speech normal Psych affect normal Assessment & Plan Assessment/Plan (1) Nausea and vomiting: PLAN: Plan 1. Uncontrolled nausea and vomiting-possibly secondary to chronic cannabis usage, patient's Haldol was discontinued today, she will be taken off telemetry, I have elected to place her on Antivert scheduled and increase her Valium to 7.5 mg 4 times a day #2 history of gastroparesis-patient is not on any Reglan, patient remains on IV Reglan #3 coronary artery disease-this is stable at this time #4 heart murmur- secondary to mitral regurgitation-patient had a recent coronary artery bypass and the mitral regurg is being followed by a neurology nurse at the [facility], patient told me today that she is scheduled to have a ALEXIS in the near future. Total clinical time spent by myself addressing the patient's medical issues, reviewing all of her data, and collaborating with her care team: 35-minutes Charges/Coding Visit Charges Inpatient E&M: 92500 Subs Hosp L2
[2025-01-21 03:00] VITALS: BP 98/68; PULSE 68; RESP 16; TEMP 36.6; O2SAT 98
[2025-01-21] MEDS: 0.45% Normal Saline 1,000 ML 150 ML IV (03:20)
--- NOTE | 2025-01-21 08:52 | CASEMGMT ---
Social Work SW spoke w/pt briefly, she wants to get in the shower. She is interested in completing LW/POA while here. SW explained will let the RN know she would like to get in the shower, SW will follow up w/her after this. SPENCER Hunter
[2025-01-21 09:00] VITALS: BP 111/75; PULSE 66; RESP 98; TEMP 36.7; O2SAT 98
[2025-01-21] MEDS: hydrOXYzine PAM 25 MG Capsule 50 MG PO ×2 (10:26→21:21)
[2025-01-21] MEDS: Heparin Injection (Vial) 5,000 UNIT/ML VIAL 5000 UNIT SC ×2 (10:35→21:25)
[2025-01-21] MEDS: Dext 5%-0.45% NS 1,000 ML 150 ML IV (11:39)
[2025-01-21] MEDS: 0.9% Saline Lock 10 ML Syringe IV ×2 (11:45→18:10)
--- NOTE | 2025-01-21 14:48 | CHAPLAIN ---
Type of Pastoral Visit _x__ Initial Visit ___ Follow-up Visit ___ On-call Visit ___ General Patient Visit ___ Spiritual Assessment ___ Family Conference ___ Bereavement ___ Rapid Response ___ Code Blue ___ Other (describe below) Pastoral Care Referral From _x__ Patient ___ Family ___ Nurse ___ Physician ___ Principal Embedded Software Engineer ___ Lugger ___ Other (describe below) Sacrament/Intervention ___ Active listening ___ Anointing ___ Quaker ___ Bereavement ___ Communion ___ Lauren exploration ___ ___ Life review _x__ Prayer ___ Reconciliation ___ Sacrament of Sick _x__ Supportive presence ___ Wedding ___ Other (describe below) Pastoral Comments patient is awake but curled up in bed with blankets surrounding her; pt has a family member with her; pt is asked about how she is feeling, coping, and what her needs might be; pt acknowledges feelings of sickness, frequent bathroom trips, and very minimal improvements for a couple of days; pt says that she just wants to get well and that a prayer would be most helpful; pt is offered support and the same is given to the family member; kept this a brief visit so patient can rest
[2025-01-21 15:00] VITALS: BP 114/74; PULSE 72; RESP 16; TEMP 36.7; O2SAT 98
[2025-01-21 21:00] VITALS: BP 109/78; PULSE 67; RESP 16; TEMP 36.6; O2SAT 95
[2025-01-22] VITALS (23 sets, daily range): BP systolic 57–149; BP diastolic 49–101; PULSE 65–156; RESP 14–30; TEMP 36.6–36.9; O2SAT 94–98
[2025-01-22] MEDS: Dext 5%-0.45% NS 1,000 ML 150 ML IV ×3 (00:32→22:31)
--- NOTE | 2025-01-22 07:17 | PCM.PN.HOSP ---
Reason for Visit Chief Complaint: Persistent nausea and vomiting Subjective Subjective The date of this progress note should read 01/21/2025, patient was seen and examined today, she has been taking showers to alleviate her nausea and vomiting. Patient still has significant nausea. I changed her IV fluid today. Objective Data Objective Data Vital Signs: Vital Signs Temp Pulse Resp BP Pulse Ox O2 Del Method 98.1 F 87 16 94/67 96 Room Air 01/22/25 03:00 01/22/25 03:00 01/22/25 03:00 01/22/25 03:00 01/22/25 03:00 01/22/25 03:36 Oxygen Delivery Method Room Air Weight: 83.3 kg Body Mass Index (BMI) 29.6 Intake & Output: Intake and Output for Last 24 Hours 01/20/25 01/21/25 01/22/25 23:59 23:59 23:59 Intake Total 2705 / 3120 2535 / 2535 50 / 50 Balance 2705 / 3120 2535 / 2535 50 / 50 Lab / Micro Data 01/19/25 10:13 01/19/25 10:13 Micro: Microbiology 01/19/25 20:30 Urine, Clean Catch Urine Culture - Preliminary Mixed Gram Pos & Gram Neg Org Streptococcus group B Physical Exam Narrative alert, oriented x3 and no apparent distress Constitutional Narrative: Patient appears uncomfortable due to nausea General Appearance: cooperative, well kempt and well developed Orientation / Consciousness: awake, oriented to person, oriented to place and oriented to time HEENT normocephalic, head/scalp atraumatic, hearing grossly normal bilaterally and moist oral mucous membranes Eyes PERRL, EOMs intact bilaterally and conjunctivae normal Neck supple, no JVD, thyroid normal and no carotid bruits General: trachea midline Resp normal respiratory effort, no retractions, no use of accessory muscles and clear to auscultation bilaterally Auscultation: Negative for rales, rhonchi or wheezes Cardio regular rate, regular rhythm, S1 normal heart sound, S2 normal heart sound, patient has a 3/6 systolic murmur at the left sternal border and apex GI normal to inspection, nondistended, normoactive bowel sounds, soft to palpation, non-tender and non-distended Extremity no clubbing, cyanosis or edema Skin no rashes or lesions noted General Skin Exam: no breakdown Neuro oriented x3, CN's II-XII intact bilaterally, no focal motor deficits and no sensory deficits noted Sensorium / Orientation: awake and alert Speech: speech normal Psych affect normal Assessment & Plan Assessment/Plan (1) Nausea and vomiting: PLAN: Plan 1. Uncontrolled nausea and vomiting-possibly secondary to chronic cannabis usage, patient will remain on her present medications to be reevaluated tomorrow #2 history of gastroparesis-patient is not on any Reglan, patient remains on IV Reglan #3 coronary artery disease-this is stable at this time #4 heart murmur- secondary to mitral regurgitation-patient had a recent coronary artery bypass and the mitral regurg is being followed by a orthotic/prosthetic clinician at the [facility], patient told me today that she is scheduled to have a ALEXIS in the near future. Total clinical time spent by myself addressing the patient's medical issues, reviewing all of her data, and collaborating with her care team: 35-minutes Charges/Coding Visit Charges Inpatient E&M: 97679 Subs Hosp L2
[2025-01-22] MEDS: hydrOXYzine PAM 25 MG Capsule 50 MG PO ×2 (08:43→21:14)
[2025-01-22] MEDS: Heparin Injection (Vial) 5,000 UNIT/ML VIAL 5000 UNIT SC ×2 (08:45→21:14)
--- NOTE | 2025-01-22 14:40 | PCM.PN.HOSP ---
Reason for Visit Chief Complaint: Persistent nausea and vomiting Subjective Subjective Patient was seen and examined today, she states she feels a little bit better today. I have elected to increase her Dramamine to 50 mg 3 times daily, she remains on Valium, IV fluids, and IV Reglan for now Objective Data Objective Data Vital Signs: Vital Signs Temp Pulse Resp BP Pulse Ox O2 Del Method 98.0 F 100 18 134/71 H 96 Room Air 01/22/25 08:50 01/22/25 08:50 01/22/25 08:50 01/22/25 08:50 01/22/25 08:50 01/22/25 09:44 Oxygen Delivery Method Room Air Weight: 83.3 kg Body Mass Index (BMI) 29.6 Intake & Output: Intake and Output for Last 24 Hours 01/20/25 01/21/25 01/22/25 23:59 23:59 23:59 Intake Total 2705 / 3120 2535 / 2535 1450 / 1450 Balance 2705 / 3120 2535 / 2535 1450 / 1450 Lab / Micro Data 01/19/25 10:13 01/19/25 10:13 Micro: Microbiology 01/19/25 20:30 Urine, Clean Catch Urine Culture - Final Mixed Gram Pos & Gram Neg Org Streptococcus group B Physical Exam Narrative alert, oriented x3 and no apparent distress Constitutional Narrative: Patient appears uncomfortable due to nausea General Appearance: cooperative, well kempt and well developed Orientation / Consciousness: awake, oriented to person, oriented to place and oriented to time HEENT normocephalic, head/scalp atraumatic, hearing grossly normal bilaterally and moist oral mucous membranes Eyes PERRL, EOMs intact bilaterally and conjunctivae normal Neck supple, no JVD, thyroid normal and no carotid bruits General: trachea midline Resp normal respiratory effort, no retractions, no use of accessory muscles and clear to auscultation bilaterally Auscultation: Negative for rales, rhonchi or wheezes Cardio regular rate, regular rhythm, S1 normal heart sound, S2 normal heart sound, patient has a 3/6 systolic murmur at the left sternal border and apex GI normal to inspection, nondistended, normoactive bowel sounds, soft to palpation, non-tender and non-distended Extremity no clubbing, cyanosis or edema Skin no rashes or lesions noted General Skin Exam: no breakdown Neuro oriented x3, CN's II-XII intact bilaterally, no focal motor deficits and no sensory deficits noted Sensorium / Orientation: awake and alert Speech: speech normal Psych affect normal Assessment & Plan Assessment/Plan (1) Nausea and vomiting: PLAN: Plan 1. Uncontrolled nausea and vomiting-possibly secondary to chronic cannabis usage, patient will remain on her present medications to be reevaluated tomorrow #2 history of gastroparesis-patient is not on any Reglan, patient remains on IV Reglan #3 coronary artery disease-this is stable at this time #4 heart murmur- secondary to mitral regurgitation-patient had a recent coronary artery bypass and the mitral regurg is being followed by a piper installer at the [facility], patient told me today that she is scheduled to have a ALEXIS in the near future. Total clinical time spent by myself addressing the patient's medical issues, reviewing all of her data, and collaborating with her care team: 35-minutes Charges/Coding Visit Charges Inpatient E&M: 02537 Subs Hosp L2
--- NOTE | 2025-01-22 14:48 | EKG12_ITS ---
Test Reason : AF Blood Pressure : */* mmHG Vent. Rate : 59 BPM Atrial Rate : 59 BPM P-R Int : 152 ms QRS Dur : 98 ms QT Int : 422 ms P-R-T Axes : 62 -20 197 degrees QTcB Int : 417 ms Sinus bradycardia with marked sinus arrhythmia Nonspecific ST and T wave abnormality Abnormal ECG When compared with ECG of 22-Jan-2025 15:52, MANUAL COMPARISON REQUIRED DATA IS UNCONFIRMED Confirmed by CAM HICKMAN, TOM ([id number]), newspaper photo editor OSVALDO ESTRADA ([id number]) on 01/25/2025 6:09:36 AM Referred By: Confirmed By: TOM LEVY MD
--- NOTE | 2025-01-22 18:53 | PCM.HOSP.N ---
Hospitalist Note Notified by nursing that patient remains in A-fib with RVR with rate in the 130s to 140s despite multiple interventions this afternoon. Patient was given 2 boluses of IV Cardizem, p.o. Lopressor 50 mg and a dose of IV Lopressor 5 mg over the past 3 hours with only mild improvement in heart rate. Will start Cardizem drip at this time. Okay to continue p.o. Lopressor 100 mg twice daily. Will also start heparin drip at this time for anticoagulation and will hold home Plavix to minimize bleeding risk.
[2025-01-22 19:25] LABS: Hematocrit 34.6 % (37-47); Hemoglobin 12.7 g/dL (12.0-15.0); Immature Granulocytes Count 0.040 X10^3/uL (0.0-0.0); Mean Corp Hgb Conc 36.7 g/dL (32-36); Mean Corpuscular Volume 81.8 fL (81-99); Mean Platelet Vol. 9.8 fl (6.2-12.0); NRBC Flagged by Analyzer 0 % (0-5); Platelet Count 236 K/mm3 (150-450); RBC Distribution Width CV 13.2 % (11.6-14.6); RBC Distribution Width SD 39.0 fl (35.1-43.9); Red Blood Count 4.23 M/mm3 (4.2-5.4); White Blood Count 8.8 K/mm3 (4.4-11.0)
[2025-01-22 19:31] LABS: Prothrombin Time (Protime)PT. 13.8 SECONDS (11.7-14.9)
[2025-01-22 19:32] LABS: Partial Thromboplast Time 25.5 Seconds (24.1-36.2)
[2025-01-22] MEDS: Digoxin 250 MCG/ML Ampul 500 MCG IV (19:53)
[2025-01-22] MEDS: 0.9% Saline Lock 10 ML Syringe IV ×2 (19:56→23:42)
[2025-01-22] MEDS: Diltiazem 125 MG in Dextrose 5%-Water (100mL Bag) 100 ML IV (21:02)
[2025-01-23] VITALS (24 sets, daily range): BP systolic 72–167; BP diastolic 48–96; PULSE 51–120; RESP 10–19; TEMP 36.2–36.9; O2SAT 93–99
--- NOTE | 2025-01-23 00:54 | PCM.HOSP.N ---
Hospitalist Note Patient unable to tolerate cardizem, eventually BP decreasing to SBP 70s, despite only being low dose, will d/c. Currently HR improved 80-100 range. Will monitor off cardizem and continue to reassess BP with IVF bolus if needed. If HR increases again, may require transition to amiodarone drip.
[2025-01-23] MEDS: Amiodarone 150 MG in Dextrose 5%-Water (100mL Bag) 100 ML 600 MG IV BOLUS (03:03)
[2025-01-23] MEDS: 0.9% Normal Saline (500mL Bag) 500 ML 999 ML IV (03:03)
[2025-01-23] MEDS: Amiodarone 360 MG in Dextrose 5% Viaflo Bag 192.8 ML 16.7 MG CONT INF (03:16)
[2025-01-23] MEDS: Dext 5%-0.45% NS 1,000 ML 150 ML IV ×3 (05:06→17:02)
[2025-01-23] MEDS: 0.9% Saline Lock 10 ML Syringe IV (05:08)
[2025-01-23] MEDS: hydrOXYzine PAM 25 MG Capsule 50 MG PO ×2 (08:09→22:17)
--- NOTE | 2025-01-23 08:57 | EKG12_ITS ---
Test Reason : Blood Pressure : */* mmHG Vent. Rate : 170 BPM Atrial Rate : * BPM P-R Int : * ms QRS Dur : 96 ms QT Int : 300 ms P-R-T Axes : * -15 164 degrees QTcB Int : 504 ms Critical Test Result: High HR Atrial fibrillation with rapid ventricular response ST & T wave abnormality, consider inferolateral ischemia Abnormal ECG When compared with ECG of 19-Jan-2025 08:54, Atrial fibrillation has replaced Sinus rhythm Vent. rate has increased by 98 bpm T wave inversion now evident in Lateral leads Confirmed by CAM HICKMAN, TOM ([id number]), design editor OSVALDO ESTRADA ([id number]) on 01/25/2025 6:09:49 AM Referred By: Confirmed By: TOM LEVY MD
[2025-01-23] MEDS: APIXABAN 5 MG TABLET PO ×2 (09:48→22:18)
--- NOTE | 2025-01-23 10:54 | PCM.PN.HOSP ---
Reason for Visit Chief Complaint: Persistent nausea and vomiting Subjective Subjective Patient was seen and examined today, she converted to normal sinus rhythm this morning at 72. I discussed her case informally with cardiology and elected to stop her amiodarone drip and placed her on a higher dose of metoprolol, initially I was going to add Cardizem but when the patient converted to normal sinus rhythm I stopped her oral Cardizem. I also talked with her significant other by phone today and answered some questions that she had. Objective Data Objective Data Vital Signs: Vital Signs Temp Pulse Resp BP Pulse Ox O2 Del Method 97.2 F L 74 15 136/69 H 98 Room Air 01/23/25 10:05 01/23/25 10:05 01/23/25 10:05 01/23/25 10:05 01/23/25 10:05 01/23/25 10:05 Oxygen Delivery Method Room Air Weight: 83.3 kg Body Mass Index (BMI) 29.6 Intake & Output: Intake and Output for Last 24 Hours 01/21/25 01/22/25 01/23/25 23:59 23:59 23:59 Intake Total 2535 / 2535 3061.33 / 3063.83 1691.68 / 1691.68 Balance 2535 / 2535 3061.33 / 3063.83 1691.68 / 1691.68 Lab / Micro Data 01/22/25 19:10 01/19/25 10:13 Labs: Laboratory Results - last 24 hr 01/22/25 19:10: WBC 8.8, RBC 4.23, Hgb 12.7, Hct 34.6 L, MCV 81.8, MCH 30.0, MCHC 36.7 H D, RDW Std Deviation 39.0, RDW Coeff of Jaimie 13.2, Plt Count 236, MPV 9.8, Immature Gran % (Auto) 0.500, Neut % (Auto) 62.1, Lymph % (Auto) 26.0, [place] % (Auto) 8.2, Eos % (Auto) 2.5, Baso % (Auto) 0.7, Absolute Neuts (auto) 5.5, Absolute Lymphs (auto) 2.29, Nucleated RBC % 0, PT 13.8, INR 1.0, APTT 25.5 Micro: Microbiology 08/20/25 20:30 Urine, Clean Catch Urine Culture - Final Mixed Gram Pos & Gram Neg Org Streptococcus group B Physical Exam Const alert, oriented x3, no apparent distress, average body habitus and healthy appearing General Appearance: cooperative, well kempt and well developed Orientation / Consciousness: awake, oriented to person, oriented to place and oriented to time HEENT normocephalic, head/scalp atraumatic and moist oral mucous membranes Eyes PERRL, EOMs intact bilaterally and conjunctivae normal Neck supple, no JVD, thyroid normal and no carotid bruits General: trachea midline Resp normal respiratory effort and clear to auscultation bilaterally Auscultation: Negative for rales, rhonchi or wheezes Cardio regular rate, regular rhythm, S1 normal heart sound, S2 normal heart sound, no rub and no gallops Cardio Narrative: There is a 3/6 systolic murmur noted at the apex and left sternal border GI normal to inspection, nondistended, normoactive bowel sounds, soft to palpation, non-tender and non-distended Extremity no clubbing, cyanosis or edema Skin no rashes or lesions noted General Skin Exam: no breakdown Neuro oriented x3, CN's II-XII intact bilaterally, no focal motor deficits and no sensory deficits noted Sensorium / Orientation: awake and alert Speech: speech normal Psych affect normal Assessment & Plan Assessment/Plan (1) Nausea and vomiting: PLAN: Plan 1. Uncontrolled nausea and vomiting-possibly secondary to chronic cannabis usage, patient will remain on her present medications to be reevaluated tomorrow, patient states today she is still nauseated, I do not feel adjusting any of her medications would be of any benefit. #2 history of gastroparesis-patient is not on any Reglan, patient remains on IV Reglan #3 coronary artery disease-this is stable at this time #4 heart murmur- secondary to mitral regurgitation-patient had a recent coronary artery bypass and the mitral regurg is being followed by a belting and webbing inspector at the [facility], patient told me today that she is scheduled to have a ALEXIS in the near future. #5 paroxysmal atrial fibrillation with RVR-converted to normal sinus rhythm at this time-patient will remain on metoprolol tartrate 150 mg twice daily and Eliquis 5 mg twice daily. She will need follow-up with her belting and webbing inspector as an outpatient, I have elected not to repeat an echocardiogram on the patient as she is scheduled to have one in the near future in [place]. Total clinical time spent by myself addressing the patient's medical issues, reviewing all of her data, and collaborating with her care team: 35-minutes Charges/Coding Visit Charges Inpatient E&M: [id number] Subs Hosp L2
[2025-01-24] VITALS (9 sets, daily range): BP systolic 102–165; BP diastolic 61–76; PULSE 54–72; RESP 14–19; TEMP 35.9–36.9; O2SAT 92–97
[2025-01-24] MEDS: Dext 5%-0.45% NS 1,000 ML 150 ML IV (01:04)
[2025-01-24] MEDS: 0.9% Saline Lock 10 ML Syringe IV (05:29)
[2025-01-24] MEDS: APIXABAN 5 MG TABLET PO ×2 (08:47→21:38)
[2025-01-24] MEDS: hydrOXYzine PAM 25 MG Capsule 50 MG PO ×2 (08:48→21:41)
--- NOTE | 2025-01-24 12:42 | PCM.PN.HOSP ---
Reason for Visit Chief Complaint: Persistent nausea and vomiting Subjective Subjective Patient was seen and examined today, she is still having nausea, she tried to eat some cheese but ended up throwing it up. Patient remains in sinus rhythm with a rate of approximately 62. Objective Data Objective Data Vital Signs: Vital Signs Temp Pulse Resp BP Pulse Ox O2 Del Method O2 Flow Rate 98.1 F 61 19 H 121/66 H 97 Room Air 2 01/24/25 12:20 01/24/25 12:20 01/24/25 12:20 01/24/25 12:20 01/24/25 12:20 01/24/25 12:20 01/24/25 08:37 Oxygen Flow Rate (L/min) 2 Oxygen Delivery Method Room Air Weight: 83.3 kg Body Mass Index (BMI) 29.6 Intake & Output: Intake and Output for Last 24 Hours 01/22/25 01/23/25 01/24/25 23:59 23:59 23:59 Intake Total 3061.33 / 3063.83 5281.68 / 5281.68 702.5 / 702.5 Balance 3061.33 / 3063.83 5281.68 / 5281.68 702.5 / 702.5 Lab / Micro Data 01/22/25 19:10 01/19/25 10:13 Micro: Microbiology 01/19/25 20:30 Urine, Clean Catch Urine Culture - Final Mixed Gram Pos & Gram Neg Org Streptococcus group B Physical Exam Narrative alert, oriented x3, no apparent distress, average body habitus and healthy appearing General Appearance: cooperative, well kempt and well developed Orientation / Consciousness: awake, oriented to person, oriented to place and oriented to time HEENT normocephalic, head/scalp atraumatic and moist oral mucous membranes Eyes PERRL, EOMs intact bilaterally and conjunctivae normal Neck supple, no JVD, thyroid normal and no carotid bruits General: trachea midline Resp normal respiratory effort and clear to auscultation bilaterally Auscultation: Negative for rales, rhonchi or wheezes Cardio regular rate, regular rhythm, S1 normal heart sound, S2 normal heart sound, no rub and no gallops Cardio Narrative: There is a 3/6 systolic murmur noted at the apex and left sternal border GI normal to inspection, nondistended, normoactive bowel sounds, soft to palpation, non-tender and non-distended Extremity no clubbing, cyanosis or edema Skin no rashes or lesions noted General Skin Exam: no breakdown Neuro oriented x3, CN's II-XII intact bilaterally, no focal motor deficits and no sensory deficits noted Sensorium / Orientation: awake and alert Speech: speech normal Psych affect normal Assessment & Plan Assessment/Plan (1) Nausea and vomiting: PLAN: Plan 1. Uncontrolled nausea and vomiting-possibly secondary to chronic cannabis usage, patient will remain on her present medications to be reevaluated tomorrow, patient states today she is still nauseated, I do not feel adjusting any of her medications would be of any benefit. Patient's symptoms are better on 01/25/2025, she may be considered for discharge home #2 history of gastroparesis-patient is not on any Reglan, patient remains on IV Reglan #3 coronary artery disease-this is stable at this time #4 heart murmur- secondary to mitral regurgitation-patient had a recent coronary artery bypass and the mitral regurg is being followed by a automotive glass specialist at the [facility], patient told me today that she is scheduled to have a ALEXIS in the near future. #5 paroxysmal atrial fibrillation with RVR-converted to normal sinus rhythm at this time-patient will remain on metoprolol tartrate 150 mg twice daily and Eliquis 5 mg twice daily. She will need follow-up with her automotive glass specialist as an outpatient, I have elected not to repeat an echocardiogram on the patient as she is scheduled to have one in the near future in [place]. Total clinical time spent by myself addressing the patient's medical issues, reviewing all of her data, and collaborating with her care team: 35-minutes Charges/Coding Visit Charges Inpatient E&M: 09830 Subs Hosp L2
[2025-01-25] VITALS (10 sets, daily range): BP systolic 105–172; BP diastolic 64–87; PULSE 56–67; RESP 13–20; TEMP 36.3–36.6; O2SAT 85–100
[2025-01-25] MEDS: 0.9% Saline Lock 10 ML Syringe IV ×3 (00:42→20:54)
[2025-01-25] MEDS: hydrOXYzine PAM 25 MG Capsule 50 MG PO ×2 (08:24→20:54)
[2025-01-25] MEDS: APIXABAN 5 MG TABLET PO ×2 (08:24→20:52)
[2025-01-25 08:26] LABS: Hematocrit 33.5 % (37-47); Hemoglobin 12.0 g/dL (12.0-15.0); Immature Granulocytes Count 0.030 X10^3/uL (0.0-0.0); Mean Corp Hgb Conc 35.8 g/dL (32-36); Mean Corpuscular Volume 83.3 fL (81-99); Mean Platelet Vol. 9.8 fl (6.2-12.0); NRBC Flagged by Analyzer 0 % (0-5); Platelet Count 182 K/mm3 (150-450); RBC Distribution Width CV 13.2 % (11.6-14.6); RBC Distribution Width SD 40.0 fl (35.1-43.9); Red Blood Count 4.02 M/mm3 (4.2-5.4); White Blood Count 7.6 K/mm3 (4.4-11.0)
[2025-01-25 08:47] LABS: Magnesium 2.2 mg/dL (1.5-2.2)
[2025-01-25 08:52] LABS: AST(SGOT) 138 U/L (<=31); Alanine Aminotransfer ALT/SGPT 189 U/L (<=34); Albumin, Serum 3.8 g/dL (3.4-4.8); Alkaline Phosphatase 150 U/L (35-104); Anion Gap 9 (5-15); Calcium,Total 9.0 mg/dL (7.6-11.0); Carbon Dioxide 25.5 mmol/L (21.0-32.0); Chloride 107 mmol/L (98-108); Estimated Creatinine Clearance 73.50 ml/min (50-250); Globulin 2.2 g/dL (2.2-4.2); Glucose 132 mg/dL (70-99); Potassium 3.8 mmol/L (3.3-5.1)
[2025-01-25 09:11] LABS: BUN 5 mg/dL (4-19); BUN/Creat Ratio 5.5 RATIO (10-20)
--- NOTE | 2025-01-25 09:43 | ECHOD_ITS ---
Reason For Study Reason For Study: CHF Procedure This was a 2D Doppler, Color Flow transthoracic echocardiogram. Exam performed portable in patient room. Left Ventricle Normal left ventricle. The estimated ejection fraction is 60???65 %. Right Ventricle Normal right ventricle. Normal systolic function. Atria The left atrium is moderately enlarged. Normal right atrium. Mitral Valve There is moderate to severe mitral annular calcification. Heavily calcified posterior mitral annulus. Moderately severe (3+) eccentric mitral valve insufficiency. Tricuspid Valve Normal tricuspid valve. Mild tricuspid valve insufficiency. Aortic Valve Aortic valve area 0.98 cm squire . Moderate to severe aortic stenosis. Peak aortic valve gradient 50.9 mmHg. Mean aortic valve gradient 32.3 mmHg. Mild-Moderate (1-2+) aortic valve insufficiency. Pulmonic Valve Mild pulmonary regurgitation. Great Vessels The aortic root is not well visualized. Pericardium/Pleural No pericardial effusion. MMode/2D Measurements & Calculations LVIDd: 4.3 cm IVSd: 1.3 cm LVOT diam: 2.0 cm LVIDs: 2.9 cm LVPWd: 1.4 cm LVOT area: 3.2 cm2 RVDd: 3.9 cm FS: 32.5 % CO(Teich): 2.7 l/min Ao root diam: 3.4 cm LAV(MOD-bp): 81.0 ml LAV(MOD-bp) Indexed: 42.1 ml/m2 LAV(MOD-sp2): 86.8 ml LAV(MOD-sp4): 73.0 ml CO(MOD-sp4): 2.7 l/min SV(sp4-el): 54.4 ml LVAd ap4: 25.4 cm2 SV(MOD-sp4): 50.1 ml LVLd ap4: 7.0 cm EDV(MOD-sp4): 74.2 ml SI(MOD-sp4): 26.0 ml/m2 EDV(sp4-el): 77.8 ml LVAs ap4: 12.3 cm2 LVLs ap4: 5.5 cm ESV(MOD-sp4): 24.0 ml ESV(sp4-el): 23.3 ml EF(MOD-sp4): 67.6 % EF(sp4-el): 70.0 % Aortic Valve Planimetry: 1.2 cm2 LA A4 area: 24.6 cm2 LA dimension(2D): 4.2 cm TAPSE: 2.1 cm RA A4 area: 17.7 cm2 Time Measurements MV dec time: 0.38 sec Doppler Measurements & Calculations MV E max jagdish: 158.7 cm/sec Lat Peak E' Jagdish: 3.9 cm/sec Med Peak E' Jagdish: 3.9 cm/sec MV A max jagdish: 90.9 cm/sec E/E' lat: 40.3 E/E' med: 40.3 MV E/A: 1.7 MV V2 max: 212.8 cm/sec MV dec slope: 419.3 cm/sec2 Ao V2 max: 356.3 cm/sec MV max P.1 mmHg Ao max P.9 mmHg MV V2 mean: 93.6 cm/sec Ao V2 mean: 272.8 cm/sec MV mean P.5 mmHg Ao mean P.3 mmHg MV V2 VTI: 69.0 cm Ao V2 VTI: 85.1 cm MVA(VTI): 0.95 cm2 AV (velocity ratio): 0.24 PEDR OLUIS(I,D): 0.77 cm2 PEDRO LUIS(V,D): 0.98 cm2 AI max jagdish: 483.3 cm/sec LV V1 max: 110.6 cm/sec CO(LVOT): 3.6 l/min AI max P.5 mmHg LV V1 max P.9 mmHg SV(LVOT): 65.2 ml LV V1 mean P.2 mmHg AI dec slope: 258.7 cm/sec2 LV V1 mean: 86.4 cm/sec AI P1/2t: 547.1 msec LV V1 VTI: 20.6 cm PA V2 max: 92.2 cm/sec TR max jagdish: 302.7 cm/sec TR max P.8 mmHg ECHO/Echo Complete Interpretation Summary The estimated ejection fraction is 60???65 %. Normal LV systolic function Heavily calcified posterior mitral annulus Aortic valve area 0.98 cm squire . Peak aortic valve gradient 50.9 mmHg. Mean aortic valve gradient 32.3 mmHg. Mild pulmonary regurgitation No previous echo to compare Ordering Physician: Cathie Aldana Referring Physician: Sabine Power Performed By: Aicha García, CINTHYA, RVT
--- NOTE | 2025-01-25 10:10 | CT_ITS ---
PROCEDURE: CTA CHEST W/WO CONTRAST 01/25/2025 REASON FOR EXAM: HYPOXIA TECHNIQUE: CTA CHEST W/WO CONTRAST Multiplanar Sagittal and Coronal images were obtained. CONTRAST: 100 cc Isovue 370 One or more dose reduction techniques were used (e.g., Automated exposure control, adjustment of the mA and/or kV according to patient size, use of iterative reconstruction technique). RADIATION DOSE SUMMARY: DLP: 459 mGycm COMPARISON: None FINDINGS: Hardware: Sternotomy wires are noted Lymph nodes: There is AP window adenopathy with the largest node measuring 2.3 x 1.7 cm, image 175/250. There is an enlarged precarinal lymph node measuring 1.6 X 1.3 cm, image 166/250. There is heterogeneous increased density in the anterior mediastinum, which may be postsurgical. Heart: Atherosclerotic calcifications are noted. RV/LV Diameter Ratio: 0.8 Thoracic Aorta: Within normal limits Pulmonary Vessels: Main pulmonary artery Hounsfield units = 534. There is no visible pulmonary embolus. Lungs and Airways: There is patchy infiltrate in the right upper lung and left upper lung, with atelectasis or scar in the left lingular segment and right middle lobe. Pleura: There is a 1.8 cm pleural effusion on the right and left. Upper Abdomen: Unremarkable Bones: Sternotomy wires are noted. CT/CTA Chest W/WO Contrast IMPRESSION: There is AP window adenopathy with the largest node measuring 2.3 x 1.7 cm, rose ge 175/250. There is an enlarged precarinal lymph node measuring 1.6 X 1.3 cm, image 166/250. There is heterogeneous increased density in the anterior mediastinum, which may be postsurgical. There is a 1.8 cm pleural effusion on the right and left. There is patchy infiltrate in the right upper lung and left upper lung, with at electasis or scar in the left lingular segment and right middle lobe. There is no visible pulmonary embolus. [facility]
[2025-01-25 10:15] LABS: Pro- Brain NATRIURETIC PEPTIDE 4115 pg/mL (<=900)
[2025-01-25] MEDS: Scopolamine 1mg/72hr Patch 1 PATCH TD (14:26)
--- NOTE | 2025-01-25 16:26 | CASEMGMT ---
RN CM in to discuss discharge planning with patient. Patient states she lives with her life partner and is independent at home. Patient denies need for HHC or therapy at discharge. Patient is currently on oxygen, will monitor for need at discharge. Patient prefers [employer] for DME. Patient denied further needs or help at discharge. CM will continue to follow this patient and plan for a safe discharge.
--- NOTE | 2025-01-25 18:03 | CON.PCM.GI_ITS ---
HPI Consult Data Date of Consult: 01/25/25 HPI Narrative Reason for Consultation: Intractable nausea and vomiting HPI Narrative: ARIEL JACK, is a 65-year-old female patient with a history of chronic cannabis use, previously diagnosed with cannabinoid hyperemesis syndrome (CHS) and cannabis-induced gastroparesis, presents to the emergency department with a 2-day history of intractable nausea and vomiting. The vomiting is cyclic, occurring multiple times per hour, and contains bilious material after initial emptying of stomach contents. The patient reports associated epigastric and diffuse abdominal pain. Nausea and vomiting symptoms were transiently relieved by taking long, hot showers, but returned shortly after. The patient reports poor oral intake and significant weight loss over the last several weeks due to fear of vomiting. She admits to daily cannabis use (frequency and amount specified if known, e.g., smoking x amount daily for several years). The patient denies fever, chills, diarrhea, or hematemesis. Standard antiemetics tried at home (e.g., ondansetron) were ineffective, consistent with prior episodes. The patient has been unable to quit cannabis despite prior counseling. She has a past Medical History: Significant cardiovascular disease including recent non-ST segment elevation [place] status post three-vessel CABG on Plavix. She also has a history of a murmur secondary to a calcified mitral valve. She was previously diagnosed with gastroparesis from unknown cause. 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 She has been getting metoclopramide, Phenergan suppositories, Compazine, Zofran and she has a scopolamine patch along with oral Valium. She gets better with hot showers. Yesterday she was able to eat. However today she has not been able to tolerate liquids or solids. Imaging:? * CT/Abdomen/Pelvis without Cont IMPRESSION: Sludge or tiny gallstones within the gallbladder lumen. Correlation with ultrasound recommended. Punctate calcifications in the body of the pancreas. Status post hysterectomy. Sigmoid diverticulosis. * Ultrasound of the right upper quadrant FINDINGS: Liver: Grossly normal size and echotexture. Gallbladder: Sludge is seen within the gallbladder lumen. The gallbladder wall is not thickened. Common bile duct: Normal measuring 6.1 mm . Pancreas: Normal Echocardiogram 01/25/25 09:43 Interpretation Summary The estimated ejection fraction is 60???65 %. Normal LV systolic function Heavily calcified posterior mitral annulus Aortic valve area 0.98 cm squire . Peak aortic valve gradient 50.9 mmHg. Mean aortic valve gradient 32.3 mmHg. Mild pulmonary regurgitation No previous echo to compare Labs 01/25/25 08:16: Total Bilirubin 0.71, AST 138 H, ALT 189 H, Alkaline Phosphatase 150 H, NT pro BNP II 4115 H, Total Protein 6.0, Albumin 3.8, Globulin 2.2, PFSH Medical History Right shoulder pain Home Medications ?Medication ?Instructions ?Recorded ?Last Taken ?Type levothyroxine 88 mcg capsule 88 mcg PO DAILY 10/07/23 Unknown History losartan 25 mg tablet 50 mg PO DAILY 10/07/23 Unkn own History alprazolam 0.25 mg tablet 0.25 mg PO DAILY PRN anxiety 01/19/25 Unknown History atorvastatin 80 mg tablet 80 mg PO QHS 01/19/25 Unknow n History clopidogrel 75 mg tablet 75 mg PO DAILY 01/19/25 Unkn own History desvenlafaxine succinate 50 mg 50 mg PO DAILY 01/19/25 Unknown History tablet,extended release 24 hr furosemide 20 mg tablet 20 mg PO DAILY 01/19/25 Unkn own History hydroxyzine HCl 25 mg tablet 50 mg PO BID 01/19/25 Unk nown History metoprolol tartrate 25 mg tablet 25 mg PO DAILY Unknown History oxcarbazepine 150 mg tablet 150 mg PO BID 01/19/25 Unk nown History pantoprazole 40 mg tablet,delayed 40 mg PO DAILY 01/19 Unknown History release quetiapine 25 mg tablet 25 - 50 mg PO QHS PRN PRN in somnia 01/19/25 Unknown History Allergy/AdvReac Type Severity Reaction Status Date / Time clindamycin AdvReac Other Verified 01/19/25 08:21 Penicillins AdvReac Other Verified 01/19/25 08:21 Sulfa (Sulfonamide AdvReac Other Verified 01/19/25 08:21 Antibiotics) Family History Father Hypertension CVA (cerebral vascular accident) Myocardial infarction Arthritis Mother Arthritis Cancer Sister Hypertension Arthritis Cancer Surgical History H/O thumb surgery H/O wrist surgery Social History household members: significant other Smoking Status: Former smoker alcohol intake: never what type of physical activity do you participate in: walking ROS Constitutional Constitutional: Reports weakness; Denies fever(s) or night sweats Eyes Eyes: Denies blurry vision, change in vision, discharge from eye(s) or eye pain Cardiovascular Cardiovascular: Denies chest pain, claudication, edema or palpitations Respiratory/Chest Respiratory/Chest: Denies cough, hemoptysis, shortness of breath at rest or shortness of breath with exertion Gastrointestinal Gastrointestinal: Reports abdominal pain, nausea and vomiting; Denies constipation, diarrhea, hematemesis, hematochezia or melena Genitourinary Genitourinary: Denies dysuria, hematuria, urinary frequency, urinary hesitancy, urinary incontinence or urinary urgency Musculoskeletal Musculoskeletal: Denies back pain, joint pain, joint stiffness, joint swelling, myalgias or neck pain Neurologic Neurologic: Denies abnormal gait, abnormal speech, dizziness, focal weakness, headache(s), loss of vision, numbness, other visual disturbances, paresthesias, syncope or tingling Psychiatric Psychiatric: Denies anxiety, cognitive impairment, depression, irritability, mood swings or suicidal ideation Endocrine Endocrinology: Denies change in body appearance, cold intolerance, excessive sweating, heat intolerance, polydipsia or polyuria Hematologic/Lymphatic Hematologic/Lymphatic: Denies none, anemia, easy bleeding, easy bruising or lymphadenopathy Allergic/Immunologic Allergic/Immunologic: Denies rhinitis, urticaria, eczemia or asthma Physical Exam Const alert, oriented x3, no apparent distress and healthy appearing General Appearance: cooperative GI normal to inspection, nondistended, normoactive bowel sounds, soft to palpation, non-tender and non-distended Percussion: normal to percussion Rectal Exam: deferred Lab / Micro Data 01/25/25 08:16 01/25/25 08:16 Labs: Laboratory Results - last 24 hr 01/25/25 08:16: WBC 7.6, RBC 4.02 L, Hgb 12.0, Hct 33.5 L, MCV 83.3, MCH 29.9, MCHC 35.8, RDW Std Deviation 40.0, RDW Coeff of Jaimie 13.2, Plt Count 182, MPV 9.8, Immature Gran % (Auto) 0.400, Neut % (Auto) 61.9, Lymph % (Auto) 24.0, Wallace % (Auto) 9.5, Eos % (Auto) 3.3, Baso % (Auto) 0.9, Absolute Neuts (auto) 4.7, Absolute Lymphs (auto) 1.82, Nucleated RBC % 0, Sodium 142, Potassium 3.8, Chloride 107, Carbon Dioxide 25.5, Anion Gap 9, BUN 5, Creatinine 0.83, Estim Creat Clear Calc 73.50, Est GFR (MDRD) Non-Af 78, BUN/Creatinine Ratio 5.5 L, G lucose 132 H, Calcium 9.0, Phosphorus 2.9, Magnesium 2.2, Total Bilirubin 0.71, AST 138 H, ALT 189 H, Alkaline Phosphatase 150 H, NT pro BNP II 4115 H, Total Protein 6.0, Albumin 3.8, Globulin 2.2, Albumin/Globulin Ratio 1.8 Imaging Radiology Impression Echocardiogram 01/25/25 09:43 Interpretation Summary The estimated ejection fraction is 60???65 %. Normal LV systolic function Heavily calcified posterior mitral annulus Aortic valve area 0.98 cm squire . Peak aortic valve gradient 50.9 mmHg. Mean aortic valve gradient 32.3 mmHg. Mild pulmonary regurgitation No previous echo to compare Ordering Physician: Cathie Aldana Referring Physician: Sabine Power Performed By: Aicha García, CINTHYA, RVT Chest CTA 01/25/25 10:10 IMPRESSION: There is AP window adenopathy with the largest node measuring 2.3 x 1.7 cm, image 175/250. There is an enlarged precarinal lymph node measuring 1.6 X 1.3 cm, image 166/250. There is heterogeneous increased density in the anterior mediastinum, which may be postsurgical. There is a 1.8 cm pleural effusion on the right and left. There is patchy infiltrate in the right upper lung and left upper lung, with atelectasis or scar in the left lingular segment and right middle lobe. There is no visible pulmonary embolus. Reading Location: [facility] Assessment & Plan Assessment/Plan (1) Nausea and vomiting: (2) Gastroparesis: PLAN: 65yo woman with an exacerbation of underlying cannabinoid hyperemesis syndrome and gastroparesis presenting with intractable nausea, vomiting, and dehydration.?The patient's history of chronic cannabis use, cyclical vomiting, and transient relief from hot showers is classic for CHS, confirmed by previous workups. The co-existing gastroparesis likely complicates the clinical picture, but the hyperemetic phase is the hog driver of the current hospitalization. The current episode is most likely triggered by continued cannabis use. Differential diagnoses of other gastrointestinal pathology have been largely ruled out through past workups. The lab abnormalities are consistent with cholestatic hepatitis.? The junction with dilated common bile duct at 6.1 without any intrahepatic ductal dilation. ?The new cholestatic hepatitis is highly concerning for drug-induced liver injury (DILI) related to her long-term cannabis use, especially since other common causes of cholestasis are being ruled out. Her intractable nausea and vomiting likely stem from the combination of acute liver inflammation and her underlying gastroparesis, potentially worsened by the acute illness. * Differentials: * Drug-Induced Liver Injury (DILI):?Cannabinoids can cause hepatic injury, * Biliary Obstruction:?Choledocholithiasis , stricture. There was no sign of malignancy on CT scan abdomen pelvis. * Viral Hepatitis:?Both acute and chronic viral hepatitis (e.g., A, B, C) can cause cholestatic patterns, especially in the prodromal phase. * Cholangitis:?An ascending biliary tract infection, a possibility with obstructive cholestasis * Autoimmune Cholestasis:?Such as Primary Biliary Cholangitis (PBC). * Gastroparesis Exacerbation:?The chronic nausea and vomiting could be worsened by acute liver dysfunction. PLAN * Hospitalization:?Admit to the hospital for management of dehydration, electrolyte abnormalities, and intractable emesis. * Supportive Care: * IV fluids:?Aggressive rehydration with intravenous fluids (e.g., Normal Saline or Lactated Ringer's) to correct dehydration and electrolyte deficits. * Electrolyte Repletion:?Monitor and replete potassium and other electrolytes as needed. * Cholestasis Management: * Diagnostic Workup:?Continue investigations to definitively distinguish between intrahepatic and extrahepatic causes of cholestasis with MRCP. * Offending Agent Removal:?Ensure the patient understands that cannabis cessation is the primary treatment for presumed DILI. * Medication:?Ursodeoxycholic Acid can be considered to reduce the toxic effects of bile acids, a common treatment for drug-induced cholestasis, though evidence in this specific context may vary. * Antiemetics: * Atypical agents:?Use benzodiazepines (e.g., lorazepam) or low-dose antipsychotics (e.g., haloperidol or olanzapine), as traditional antiemetics are typically ineffective. * Dopamine Antagonists:?Haloperidol?or droperidol are often effective for CHS. - 33-patient randomized trial, haloperidol at a dose of either 0.05 or 0.1 mg/kg was superior to ondansetron 8 mg in reducing nausea and pain as measured by visual analog scale. * Topical capsaicin:?Consider topical capsaicin cream applied to the abdomen, which has been shown to provide relief in some cases. Icy hot, Biofreeze or [place] balm may be used as substitution for capsaicin. * Avoid opioids:?Avoid opioids for pain management, as they are often ineffective and can worsen gastroparesis. * Symptom Management: * Hot water bathing:?Patient may continue to use hot showers for symptomatic relief during the hyperemetic phase. * Acid suppression:?Proton pump inhibitor (e.g., pantoprazole) for gastritis/esophagitis from vomiting. * Patient Education and Counseling: * Abstinence:?Stress that complete and sustained cessation of cannabis is the only definitive cure for CHS. Charges/Coding Visit Charges Inpatient E&M: 89030 Init Hosp L3
--- NOTE | 2025-01-25 18:51 | PCM.PN.HOSP ---
Reason for Visit Chief Complaint: Persistent nausea and vomiting Subjective Subjective I was called by nursing as the patient developed worsening shortness of breath that is seem to be acute in nature. She has known mitral valve disease and acute heart failure with suspected that she has been getting IV fluids. IV fluids had been discontinued. Patient reports ongoing intermittent bouts of nausea that have not subsided since admission. Objective Data Objective Data Vital Signs: Vital Signs Temp Pulse Resp BP Pulse Ox O2 Del Method O2 Flow Rate 97.9 F 56 L 16 117/73 98 Room Air 2 01/25/25 14:00 01/25/25 17:58 01/25/25 14:00 01/25/25 17:58 01/25/25 17:58 01/25/25 17:58 01/25/25 14:00 Oxygen Flow Rate (L/min) 2 Oxygen Delivery Method Room Air Weight: 83.3 kg Body Mass Index (BMI) 29.6 Intake & Output: Intake and Output for Last 24 Hours 01/23/25 01/24/25 01/25/25 23:59 23:59 23:59 Intake Total 5281.68 / 5281.68 702.5 / 702.5 Output Total 5 / 5 700 / 700 Balance 5281.68 / 5281.68 697.5 / 697.5 -700 / -700 Lab / Micro Data 01/25/25 08:16 01/25/25 08:16 Labs: Laboratory Results - last 24 hr 01/25/25 08:16: WBC 7.6, RBC 4.02 L, Hgb 12.0, Hct 33.5 L, MCV 83.3, MCH 29.9, MCHC 35.8, RDW Std Deviation 40.0, RDW Coeff of Jaimie 13.2, Plt Count 182, MPV 9.8, Immature Gran % (Auto) 0.400, Neut % (Auto) 61.9, Lymph % (Auto) 24.0, [place] % (Auto) 9.5, Eos % (Auto) 3.3, Baso % (Auto) 0.9, Absolute Neuts (auto) 4.7, Absolute Lymphs (auto) 1.82, Nucleated RBC % 0, Sodium 142, Potassium 3.8, Chloride 107, Carbon Dioxide 25.5, Anion Gap 9, BUN 5, Creatinine 0.83, Estim Creat Clear Calc 73.50, Est GFR (MDRD) Non-Af 78, BUN/Creatinine Ratio 5.5 L, Glucose 132 H, Calcium 9.0, Phosphorus 2.9, Magnesium 2.2, Total Bilirubin 0.71, AST 138 H, ALT 189 H, Alkaline Phosphatase 150 H, NT pro BNP II 4115 H, Total Protein 6.0, Albumin 3.8, Globulin 2.2, Albumin/Globulin Ratio 1.8 Micro: Microbiology 01/19/25 20:30 Urine, Clean Catch Urine Culture - Final Mixed Gram Pos & Gram Neg Org Streptococcus group B Radiography Diagnostic Testing: Radiology Impression Echocardiogram 01/25/25 09:43 Interpretation Summary The estimated ejection fraction is 60???65 %. Normal LV systolic function Heavily calcified posterior mitral annulus Aortic valve area 0.98 cm squire . Peak aortic valve gradient 50.9 mmHg. Mean aortic valve gradient 32.3 mmHg. Mild pulmonary regurgitation No previous echo to compare Ordering Physician: Cathie Aldana Referring Physician: Sabine Power Performed By: Aicha García, RDCS, RVT Chest CTA 01/25/25 10:10 IMPRESSION: There is AP window adenopathy with the largest node measuring 2.3 x 1.7 cm, image 175/250. There is an enlarged precarinal lymph node measuring 1.6 X 1.3 cm, image 166/250. There is heterogeneous increased density in the anterior mediastinum, which may be postsurgical. There is a 1.8 cm pleural effusion on the right and left. There is patchy infiltrate in the right upper lung and left upper lung, with atelectasis or scar in the left lingular segment and right middle lobe. There is no visible pulmonary embolus. Reading Location: [facility] Physical Exam Const alert and oriented x3 Constitutional Narrative: Upper middle-aged, white female, lying in right side-lying, appears uncomfortable but no acute distress, very pleasant HEENT head/scalp atraumatic and moist oral mucous membranes Head and Scalp: normocephalic Eyes Eyes Narrative: No scleral icterus Neck supple Neck Narrative: Trachea midline Resp No normal respiratory effort, no retractions, no use of accessory muscles and No clear to auscultation bilaterally Resp Narrative: Crackles right base greater than left base however patient is right side-lying, mild tachypnea Auscultation: crackles; Negative for rhonchi or wheezes Cardio regular rate, regular rhythm, S1 normal heart sound, S2 normal heart sound, no gallops and no clicks; Negative for no murmurs Cardio Narrative: 3 out of 6 systolic murmur loudest at left lower sternal border GI soft to palpation and non-distended; Negative for non-tender GI Narrative: Mild tenderness in the epigastrium, bowel sounds are hyperactive Auscultation: hyperactive bowel sounds Extremity no clubbing, cyanosis or edema Extremity Narrative: Pedal pulses are 2+, radial pulses are 2+ Neuro oriented x3, moves all extremities and no focal motor deficits Speech: speech normal Psych Psych Narrative: Affect is slightly flat today but appropriate for current situation, patient is pleasant and interacts appropriately Assessment & Plan Assessment/Plan (1) Nausea and vomiting: (2) Transaminitis: (3) Right shoulder pain: (4) Acute hypoxemic respiratory failure: (5) Aortic valve stenosis, acquired: (6) Mitral valve insufficiency: (7) Acute heart failure with preserved ejection fraction (HFpEF): PLAN: Plan Acute hypoxic respiratory failure secondary to acute decompensated HFpEF - Patient has been on IV fluids and has known mitral valve insufficiency - BNP was found to be markedly elevated - CTA negative for PE but does show multifocal ground glass changes - Patient has been on room air now requiring 5 L nasal cannula - Wean as able - May need to assess ambulatory pulse ox prior to discharge depending on oxygen status at baseline - Start Lasix IV twice daily - Check echocardiogram Intractable nausea and vomiting/Gastroparesis - Has been ongoing and highly suspect cannabis induced hyperemesis however patient is not improving despite multiple medical therapies - Consult to GI for assistance with management Transaminitis - suspect related to passive congestion vs medication but r/o other etiologies - MRCP per GI - repeat in am PAF with RVR - Patient had new onset A-fib with RVR but has self converted into normal sinus rhythm - Continue Eliquis - Continue metoprolol 150 mg p.o. twice daily - Patient follows up at [facility] - Echocardiogram pursued today due to respiratory failure History of mitral valve regurgitation - Patient with recent CABG and mitral valve regurgitation was being followed by cardiology at [facility] - Patient has upcoming appointment on March 01 and possible ALEXIS CAD/essential hypertension/hyperlipidemia - Continue atorvastatin - Continue clopidogrel - Hold p.o. Lasix and continue IV Lasix - continue losartan - Continue metoprolol GERD - Continue PPI but transition from p.o. daily to IV twice daily Depression/anxiety/insomnia - Continue home medication regimen Hypothyroidism - Continue home levothyroxine DVT prophylaxis - Patient is on Eliquis for A-fib CODE STATUS - Full code Charges/Coding Visit Charges Inpatient E&M: 78883 [facility] Hosp L3
[2025-01-25 20:46] LABS: CRP 28.20 mg/L (0.0-3.0); Ferritin 262 ng/mL (22-378)
[2025-01-25] MEDS: Pantoprazole Sodium 40 MG in 0.9% Normal Saline (100mL MB+) 100 ML 300 MG IV (21:58)
[2025-01-26] VITALS (8 sets, daily range): BP systolic 99–160; BP diastolic 53–80; PULSE 54–64; RESP 16; TEMP 36.1–36.7; O2SAT 92–99
[2025-01-26] MEDS: 0.9% Saline Lock 10 ML Syringe IV (05:01)
[2025-01-26 05:02] LABS: Hematocrit 33.9 % (37-47); Hemoglobin 11.9 g/dL (12.0-15.0); Immature Granulocytes Count 0.030 X10^3/uL (0.0-0.0); Mean Corp Hgb Conc 35.1 g/dL (32-36); Mean Corpuscular Volume 85.0 fL (81-99); Mean Platelet Vol. 9.9 fl (6.2-12.0); NRBC Flagged by Analyzer 0 % (0-5); Platelet Count 175 K/mm3 (150-450); RBC Distribution Width CV 13.4 % (11.6-14.6); RBC Distribution Width SD 41.0 fl (35.1-43.9); Red Blood Count 3.99 M/mm3 (4.2-5.4); White Blood Count 7.5 K/mm3 (4.4-11.0)
[2025-01-26 05:33] LABS: AST(SGOT) 47 U/L (<=31); Alanine Aminotransfer ALT/SGPT 118 U/L (<=34); Albumin, Serum 3.5 g/dL (3.4-4.8); Alkaline Phosphatase 133 U/L (35-104); Anion Gap 11 (5-15); BUN 8 mg/dL (4-19); BUN/Creat Ratio 7.9 RATIO (10-20); Calcium,Total 9.2 mg/dL (7.6-11.0); Carbon Dioxide 31.6 mmol/L (21.0-32.0); Chloride 100 mmol/L (98-108); Estimated Creatinine Clearance 57.55 ml/min (50-250); Globulin 2.4 g/dL (2.2-4.2); Glucose 110 mg/dL (70-99); Magnesium 2.4 mg/dL (1.5-2.2); Potassium 3.6 mmol/L (3.3-5.1)
--- NOTE | 2025-01-26 09:15 | MRI_ITS ---
PROCEDURE: MRCP ABDOMEN WITHOUT CONTRAST 01/26/2025 REASON FOR EXAM: CHOLESTATIC HEPATITIS TECHNIQUE: MRCP ABDOMEN WITHOUT CONTRAST Multiplanar and multisequence images were obtained. CONTRAST: none COMPARISON: January 19, 2025 CT FINDINGS: There is a 1 cm pleural effusion on the right and left. There is no intrahepatic biliary dilation. The gallbladder, cystic duct, common bile duct, and pancreatic duct are normal. There is no filling defect identified. The liver, spleen, gallbladder, pancreas, adrenals, and kidneys are normal in appearance. There is no renal mass or hydronephrosis. Gas and stool is noted throughout the colon. The small bowel loops are not distended. There is no focal inflammatory change identified in the mesentery. Bone showed normal marrow signal. MRI/MRCP Abdomen without Contrast IMPRESSION: There is a 1 cm pleural effusion on the right and left. Negative MRCP. Reading Location: [facility]
[2025-01-26] MEDS: hydrOXYzine PAM 25 MG Capsule 50 MG PO ×2 (10:06→21:57)
[2025-01-26] MEDS: Pantoprazole Sodium 40 MG in 0.9% Normal Saline (100mL MB+) 100 ML 300 MG IV ×2 (10:06→21:56)
[2025-01-26] MEDS: APIXABAN 5 MG TABLET PO ×2 (10:07→22:00)
[2025-01-26] MEDS: Scopolamine 1mg/72hr Patch 1 PATCH TD (13:23)
--- NOTE | 2025-01-26 13:27 | PCM.PN.HOSP ---
Reason for Visit Chief Complaint: Persistent nausea and vomiting Subjective Subjective Patient states she still having considerable nausea with intermittent vomiting. States that the hot shower last evening did feel some better but only temporarily. Overall no real improvement. States her breathing is much improved. We discussed the echocardiogram and the findings that her aortic valve is bad as well as her mitral valve. Objective Data Objective Data Vital Signs: Vital Signs Temp Pulse Resp BP Pulse Ox O2 Del Method O2 Flow Rate 97.7 F L 61 16 141/57 H 92 Room Air 2 01/26/25 10:03 01/26/25 10:08 01/26/25 10:03 01/26/25 10:08 01/26/25 10:03 01/26/25 10:03 01/25/25 14:00 Oxygen Flow Rate (L/min) 2 Oxygen Delivery Method Room Air Weight: 83.3 kg Body Mass Index (BMI) 29.6 Intake & Output: Intake and Output for Last 24 Hours 01/24/25 01/25/25 01/26/25 23:59 23:59 23:59 Intake Total 702.5 / 702.5 100 / 100 100 / 100 Output Total 5 / 5 700 / 700 Balance 697.5 / 697.5 -600 / -600 100 / 100 Lab / Micro Data 01/26/25 04:43 01/26/25 04:43 Labs: Laboratory Results - last 24 hr 01/25/25 19:30: ESR 13, Ferritin 262, C-React Prot Ext Range 28.20 H, TSH 1.780 01/26/25 04:43: WBC 7.5, RBC 3.99 L, Hgb 11.9 L, Hct 33.9 L, MCV 85.0, MCH 29.8, MCHC 35.1, RDW Std Deviation 41.0, RDW Coeff of Jaimie 13.4, Plt Count 175, MPV 9.9, Immature Gran % (Auto) 0.400, Neut % (Auto) 54.3, Lymph % (Auto) 31.7, [place] % (Auto) 9.0, Eos % (Auto) 3.7, Baso % (Auto) 0.9, Absolute Neuts (auto) 4.1, Absolute Lymphs (auto) 2.37, Nucleated RBC % 0, Sodium 142, Potassium 3.6, Chloride 100, Carbon Dioxide 31.6, Anion Gap 11, BUN 8, Creatinine 1.06, Estim Creat Clear Calc 57.55, Est GFR (MDRD) Non-Af 58 L, BUN/Creatinine Ratio 7.9 L, Glucose 110 H, Calcium 9.2, Phosphorus 3.9, Magnesium 2.4 H, Total Bilirubin 0.84, AST 47 H, ALT 118 H, Alkaline Phosphatase 133 H, Total Protein 5.9, Albumin 3.5, Globulin 2.4, Albumin/Globulin Ratio 1.5 Micro: Microbiology 01/19/25 20:30 Urine, Clean Catch Urine Culture - Final Mixed Gram Pos & Gram Neg Org Streptococcus group B Radiography Diagnostic Testing: Radiology Impression Echocardiogram 01/25/25 09:43 Interpretation Summary The estimated ejection fraction is 60???65 %. Normal LV systolic function Heavily calcified posterior mitral annulus Aortic valve area 0.98 cm squire . Peak aortic valve gradient 50.9 mmHg. Mean aortic valve gradient 32.3 mmHg. Mild pulmonary regurgitation No previous echo to compare Ordering Physician: Cathie Aldana Referring Physician: Sabine Power Performed By: Aicha García, RDCS, RVT 01/26/25 09:15 IMPRESSION: There is a 1 cm pleural effusion on the right and left. Negative MRCP. Reading Location: [facility] Physical Exam Const alert, oriented x3, average body habitus and healthy appearing Constitutional Narrative: Upper middle-aged, white female, lying in right side-lying, room is dark, appears ill but no acute distress, very pleasant HEENT normocephalic, head/scalp atraumatic and moist oral mucous membranes Neck Neck Narrative: Trachea midline Resp normal respiratory effort, no retractions, no use of accessory muscles and No clear to auscultation bilaterally Resp Narrative: Crackles have resolved, back to room air, no signs of respiratory distress Auscultation: Negative for crackles, rhonchi or wheezes Cardio regular rate, regular rhythm, S1 normal heart sound, no rub, no gallops and no clicks; Negative for S2 normal heart sound or no murmurs Cardio Narrative: 3 out of 6 systolic murmur loudest at left lower sternal border but also present at right upper sternal border with fairly significant prominence GI normal to inspection, nondistended, normoactive bowel sounds, soft to palpation and non-tender Extremity no clubbing, cyanosis or edema Extremity Narrative: Pedal pulses are 2+, radial pulses are 2+ Skin General Skin Exam: no breakdown Neuro moves all extremities Speech: speech normal Psych affect normal Psych Narrative: Affect is slightly flat today but appropriate for current situation, patient is pleasant and interacts appropriately Assessment & Plan Assessment/Plan (1) Nausea and vomiting: (2) Transaminitis: (3) Right shoulder pain: (4) Acute hypoxemic respiratory failure: (5) Aortic valve stenosis, acquired: (6) Mitral valve insufficiency: (7) Acute heart failure with preserved ejection fraction (HFpEF): PLAN: Plan Acute hypoxic respiratory failure secondary to acute decompensated HFpEF - Resolved--> patient now on room air - Echocardiogram performed and shows an EF of 60 to 65% with aortic valve square area of 0.98 cm? and a peak aortic valve gradient of 50.9 mmHg and a mean aortic valve gradient of 32.3 mmHg, mild pulmonary regurgitation, mitral valve has severe calcification and 3+ insufficiency -Patient has upcoming appointment in mid January with [facility] for ALEXIS and further workup for valvular disorders. Per discussion with her she was not aware her aortic valve was problematic. She states that her CABG was done in July in [place] - Discontinue IV Lasix and start Lasix 40 mg p.o. twice daily - Will check ambulatory pulse ox prior to discharge - Monitor weight Intractable nausea and vomiting/Gastroparesis - Has been ongoing and highly suspect cannabis induced hyperemesis however patient is not improving despite multiple medical therapies - MRCP was done was unremarkable. - GI is following and ordered significant workup - With negative MRCP I have asked for an EGD given her ongoing symptoms without any resolution Transaminitis - Resolving with improved volume status - repeat in am PAF with RVR - Patient had new onset A-fib with RVR but has self converted into normal sinus rhythm -Remains in sinus rhythm - Continue Eliquis - Continue metoprolol 150 mg p.o. twice daily - Patient follows up at [facility] - Echocardiogram as noted above suspect this is valvular in nature History of mitral valve regurgitation - Patient with recent CABG and mitral valve regurgitation was being followed by cardiology at [facility] - Patient has upcoming appointment on March 01 and possible ALEXIS Aortic valve stenosis - Severe on echo - Needs ALEXIS and has upcoming appointment with [facility] CAD/essential hypertension/hyperlipidemia - Continue atorvastatin - Continue clopidogrel -Restart oral Lasix 40 mg p.o. twice daily - continue losartan - Continue metoprolol GERD -Continue IV PPI twice daily Depression/anxiety/insomnia - Continue home medication regimen Hypothyroidism - Continue home levothyroxine DVT prophylaxis - Patient is on Eliquis for A-fib CODE STATUS - Full code Charges/Coding Visit Charges Inpatient E&M: 29662 [facility] Hosp L2
[2025-01-27] VITALS (13 sets, daily range): BP systolic 81–105; BP diastolic 51–64; PULSE 58–69; RESP 16–18; TEMP 36.1–36.7; O2SAT 92–98; BMI 28.8
[2025-01-27 05:10] LABS: Hematocrit 31.8 % (37-47); Hemoglobin 11.4 g/dL (12.0-15.0); Immature Granulocytes Count 0.020 X10^3/uL (0.0-0.0); Mean Corp Hgb Conc 35.8 g/dL (32-36); Mean Corpuscular Volume 83.2 fL (81-99); Mean Platelet Vol. 10.1 fl (6.2-12.0); NRBC Flagged by Analyzer 0 % (0-5); Platelet Count 176 K/mm3 (150-450); RBC Distribution Width CV 13.4 % (11.6-14.6); RBC Distribution Width SD 39.8 fl (35.1-43.9); Red Blood Count 3.82 M/mm3 (4.2-5.4); White Blood Count 6.3 K/mm3 (4.4-11.0)
[2025-01-27 05:40] LABS: AST(SGOT) 32 U/L (<=31); Alanine Aminotransfer ALT/SGPT 84 U/L (<=34); Albumin, Serum 3.6 g/dL (3.4-4.8); Alkaline Phosphatase 127 U/L (35-104); Anion Gap 12 (5-15); BUN 13 mg/dL (4-19); BUN/Creat Ratio 13.3 RATIO (10-20); Calcium,Total 8.9 mg/dL (7.6-11.0); Carbon Dioxide 30.7 mmol/L (21.0-32.0); Chloride 96 mmol/L (98-108); Estimated Creatinine Clearance 62.77 ml/min (50-250); Globulin 2.4 g/dL (2.2-4.2); Glucose 109 mg/dL (70-99); Potassium 3.1 mmol/L (3.3-5.1)
--- NOTE | 2025-01-27 05:55 | EKG12_ITS ---
Test Reason : AM EKG Blood Pressure : */* mmHG Vent. Rate : 57 BPM Atrial Rate : 57 BPM P-R Int : 144 ms QRS Dur : 100 ms QT Int : 546 ms P-R-T Axes : 30 -4 -1 degrees QTcB Int : 531 ms Sinus bradycardia with Premature atrial complexes Possible Left atrial enlargement Left ventricular hypertrophy with repolarization abnormality ( R in aVL , Jigar product ) Cannot rule out Septal infarct , age undetermined Prolonged QT Abnormal ECG When compared with ECG of 23-Jan-2025 09:04, Premature atrial complexes are now Present Nonspecific T wave abnormality, improved in Lateral leads QT has lengthened Confirmed by ROZINA VAZQUEZ ([id number]), photo editor OSVALDO ESTRADA ([id number]) on 01/28/2025 5:46:28 AM Referred By: Confirmed By: ROZINA VAZQUEZ
--- NOTE | 2025-01-27 07:30 | PCM.PN.HOSP ---
Reason for Visit Chief Complaint: Persistent nausea and vomiting Subjective Subjective Patient looks good and states she feels well today. No nausea or vomiting currently. Has not had any through the night. Plan is for EGD later today. I discussed with her that if she does well with the EGD and no significant findings are present we will progress her diet and see how she does throughout the day today with possible discharge tomorrow as long as she was tolerating p.o. without difficulty. Objective Data Objective Data Vital Signs: Vital Signs Temp Pulse Resp BP Pulse Ox O2 Del Method O2 Flow Rate 98.0 F 58 L 16 89/51 L 98 Room Air 2 01/27/25 06:01 01/27/25 06:01 01/27/25 06:01 01/27/25 06:01 01/27/25 06:01 01/27/25 06:01 01/25/25 14:00 Oxygen Flow Rate (L/min) 2 Oxygen Delivery Method Room Air Weight: 81.2 kg Body Mass Index (BMI) 28.8 Intake & Output: Intake and Output for Last 24 Hours 01/25/25 01/26/25 01/27/25 23:59 23:59 23:59 Intake Total 100 / 100 200 / 200 Output Total 700 / 700 Balance -600 / -600 200 / 200 Lab / Micro Data 01/27/25 04:20 01/27/25 04:20 Labs: Laboratory Results - last 24 hr 01/27/25 04:20: WBC 6.3, RBC 3.82 L, Hgb 11.4 L, Hct 31.8 L, MCV 83.2, MCH 29.8, MCHC 35.8, RDW Std Deviation 39.8, RDW Coeff of Jaimie 13.4, Plt Count 176, MPV 10.1, Immature Gran % (Auto) 0.300, Neut % (Auto) 53.4, Lymph % (Auto) 33.0, [place] % (Auto) 9.2, Eos % (Auto) 3.5, Baso % (Auto) 0.6, Absolute Neuts (auto) 3.4, Absolute Lymphs (auto) 2.08, Nucleated RBC % 0, Sodium 138, Potassium 3.1 L, Chloride 96 L, Carbon Dioxide 30.7, Anion Gap 12, BUN 13, Creatinine 0.96, Estim Creat Clear Calc 62.77, Est GFR (MDRD) Non-Af 66, BUN/Creatinine Ratio 13.3, Glucose 109 H, Calcium 8.9, Total Bilirubin 0.89, AST 32, ALT 84 H, Alkaline Phosphatase 127 H, Total Protein 6.0, Albumin 3.6, Globulin 2.4, Albumin/Globulin Ratio 1.5 Micro: Microbiology 01/19/25 20:30 Urine, Clean Catch Urine Culture - Final Mixed Gram Pos & Gram Neg Org Streptococcus group B Radiography Diagnostic Testing: Radiology Impression MRCP 01/26/25 09:15 IMPRESSION: There is a 1 cm pleural effusion on the right and left. Negative MRCP. Reading [facility] Physical Exam Const alert, oriented x3, no apparent distress, average body habitus and healthy appearing Constitutional Narrative: Upper middle-aged, white female, standing up walking around the room, appears that she is feeling much better, very pleasant, much more talkative HEENT normocephalic, head/scalp atraumatic, hearing grossly normal bilaterally and moist oral mucous membranes HEENT Narrative: Mallampati 3, no thrush Resp normal respiratory effort, no retractions, no use of accessory muscles and clear to auscultation bilaterally Auscultation: Negative for crackles, rhonchi or wheezes Cardio regular rate, regular rhythm, S1 normal heart sound, no rub, no gallops and no clicks; Negative for S2 normal heart sound or no murmurs Cardio Narrative: 3 out of 6 systolic murmur loudest at left lower sternal border but also present at right upper sternal border with fairly significant prominence GI normal to inspection, nondistended, normoactive bowel sounds, soft to palpation and non-tender Extremity no clubbing, cyanosis or edema Extremity Narrative: Pedal pulses are 2+, radial pulses are 2+ Neuro moves all extremities and no focal motor deficits Speech: speech normal Psych affect normal Psych Narrative: Very pleasant, feels if she is feeling much better, very interactive and talkative today Assessment & Plan Assessment/Plan (1) Nausea and vomiting: (2) Transaminitis: (3) Right shoulder pain: (4) Acute hypoxemic respiratory failure: (5) Aortic valve stenosis, acquired: (6) Mitral valve insufficiency: (7) Acute heart failure with preserved ejection fraction (HFpEF): PLAN: Plan Acute hypoxic respiratory failure secondary to acute decompensated HFpEF - Resolved--> patient remains on room air through the night - Echocardiogram performed and shows an EF of 60 to 65% with aortic valve square area of 0.98 cm? and a peak aortic valve gradient of 50.9 mmHg and a mean aortic valve gradient of 32.3 mmHg, mild pulmonary regurgitation, mitral valve has severe calcification and 3+ insufficiency -Patient has upcoming appointment in mid January with [facility] for ALEXIS and further workup for valvular disorders. Per discussion with her she was not aware her aortic valve was problematic. She states that her CABG was done in July in [place] -Continue p.o. Lasix transition to 40 daily--> was on 20 daily at home - Will check ambulatory pulse ox prior to discharge - Monitor weight Intractable nausea and vomiting/Gastroparesis - Has been ongoing and highly suspect cannabis induced hyperemesis however patient is not improving despite multiple medical therapies - Much better today - MRCP was done was unremarkable. - Plans for EGD today - GI is following and ordered significant workup--> all lab is still pending - If no significant findings on EGD will transition to regular diet and see how she tolerates if she does well should be able to discharge home tomorrow - We discussed again the importance of cannabis cessation Transaminitis -AST is normalized and ALT is down significantly - repeat in am PAF with RVR - Patient had new onset A-fib with RVR but has self converted into normal sinus rhythm -Remains in sinus rhythm - Continue Eliquis - Continue metoprolol but decrease to 50 twice daily - Patient follows up at [facility] - Echocardiogram as noted above suspect this is valvular in nature History of mitral valve regurgitation - Patient with recent CABG and mitral valve regurgitation was being followed by cardiology at [facility] - Patient has upcoming appointment on March 01 and possible ALEXIS Aortic valve stenosis - Severe on echo - Needs ALEXIS and has upcoming appointment with [facility] CAD/essential hypertension/hyperlipidemia - Continue atorvastatin - Continue clopidogrel - Continue Lasix but decrease to 40 daily - continue losartan but decrease to 50 mg - Continue metoprolol but decrease to 50 mg twice daily GERD -Continue IV PPI twice daily Depression/anxiety/insomnia - Continue home medication regimen Hypothyroidism - Continue home levothyroxine DVT prophylaxis - Patient is on Eliquis for A-fib CODE STATUS - Full code Charges/Coding Visit Charges Inpatient E&M: 84058 Subs Hosp L2
[2025-01-27] MEDS: Potassium Chloride 10mEq/100mL 10 MEQ/100 ML IV.SOLN. 100 MEQ IV BOLUS ×4 (08:31→13:57)
[2025-01-27] MEDS: 0.9% Normal Saline (1000mL) 1,000 ML 15 ML IV (11:28)
--- NOTE | 2025-01-27 11:37 | PCM.PRE.AN2 ---
ASA Classification* ASA Classification ASA Classification: 3 and E Assessment & Plan Anesthesia* Anesthesia Assessment Anesthesia Assessment: Discussed sedation and/or anesthesia options, risks, benefits, and alternatives with patient/parents/legal guardian/POA. Questions invited. The patient/parents/legal guardian/POA seems to understand and agrees to proceed with anesthesia plan. Reviewed the physical assessment, medical history, allergy history and patient home medications list prior to surgery/procedure/anesthetic and documented any changes. Performed airway and anesthesia risk assessments. Anesthesia Type Anesthesia Type: MAC History Source History Obtained from:: Patient and Chart Anesthesia Focused Assessment* Temperature: 97.3 F Pulse Rate: 58 Blood Pressure: 105/61 Respiratory Rate: 18 Pulse Ox: 97 Oxygen Delivery Method: Room Air Oxygen Flow Rate (L/min): 2 Airway Assessment Mouth opens: >3 cm Mallampati Score: I Teeth Condition: Caps/Crowns (Patient has several crowns. They are all tight.) Neck Range of motion (ROM): Limited ROM (Slight Decrease) Labs Anesthesia Preop lab: CBC WBC 6.3 K/mm3 (4.4-11.0) 01/27/25 04:20 01/27/25 RBC 3.82 M/mm3 (4.2-5.4) L 01/27/25 04:20 01/27/25 Hgb 11.4 g/dL (12.0-15.0) L 01/27/25 04:20 01/27/25 Hct 31.8 % (37-47) L 01/27/25 04:20 01/27/25 Plt Count 176 K/mm3 (150-450) 01/27/25 04:20 01/27/25 CHEMISTRY Potassium 3.1 mmol/L (3.3-5.1) L 01/27/25 04:20 01/27/25 Sodium 138 mmol/L (133-145) 01/27/25 04:20 01/27/25 Magnesium 2.4 mg/dL (1.5-2.2) H 01/26/25 04:43 01/26/25 Phosphorus 3.9 mg/dL (2.7-4.5) 01/26/25 04:43 01/26/25 BUN 13 mg/dL (4-19) 01/27/25 04:20 01/27/25 Creatinine 0.96 mg/dL (0.70-1.20) 01/27/25 04:20 01/27/25 Glucose 109 mg/dL (70-99) H 01/27/25 04:20 01/27/25 TSH 1.780 uIU/mL (0.300-4.200) 01/25/25 19:30 01/25/25 COAG PT 13.8 SECONDS (11.7-14.9) 01/22/25 19:10 01/22/25 Pre-Assessment Diagnosis/Proposed Procedure Planned Operative Procedure(s): Esophagogastroduodenoscopy with biopsy, dilation and possible placement of Dobbhoff tube. Anesthesia History Anesthesia History - olive brine tester: Anesthesia History - olive brine tester Hx Hospitalization Any Problems With Anesthesia No 01/27/25 10:15 Cholinesterase deficiency No 01/27/25 10:15 You/Your Family Experience No 01/27/25 10:15 fever (hyperthermia) with Relationship Recent Exposure to Contagious No 01/27/25 10:15 Disease Does patient have nerve No 01/27/25 10:15 stimulator Patient instructed to have device shut off --Does patient have Pacemaker No 01/27/25 10:12 or ICD? When Was Last Pacemaker Check QUESTION #4 FULL TEXT: You/Your Family Experience fever (hyperthermia) with Anesthesia Last Oral Intake Last Oral intake: Last Oral Intake NPO since 00:00 01/27/25 10:12 Meds taken in AM with sips of Yes 01/27/25 10:12 water? Meds patient instructed to take am of surgery Any additional information?: Yes Meds taken in AM with sips of water?: Yes PONV PONV - olive brine tester: PONV - olive brine tester Female HX of Motion Sickness HX of N/V After Surgery Non-Smoker Duration of Surgery greater than 60 minutes Number of Risk Factors PONV Score Height & Weight Height & Weight: Anesthesia: Height & Weight Height 5 ft 6 in 01/27/25 10:12 Weight: 81.2 kg 01/27/25 10:12 Body Mass Index (BMI) 28.8 01/27/25 10:12 Respiratory Assessment Respiratory Assessment - olive brine tester: Respiratory Tract Infection Hx - olive brine tester Hx Respiratory Tract Infection No 01/27/25 10:15 STOP Sleep Apnea STOP Sleep Apnea - olive brine tester: STOP Sleep Apnea - olive brine tester Hx Hypertension Yes 01/19/25 14:16 Hx Sleep Apnea Yes 01/19/25 14:16 CPAP Yes 01/19/25 14:16 BIPAP No 01/19/25 14:16 Do you snore loudly (louder than talking or can be heard Do you often feel tired/ fatigued/ sleepy during daytime? Has anyone observed you stop breathing during sleep? STOP Results Positive 01/19/25 14:16 QUESTION #5 FULL TEXT : Do you snore loudly (louder than talking or can be heard through closed doors)? 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 Specify any problems Hx of Preganancy in last 3 N/A 01/19/25 14:16 Months Nurse Filling Out Transfusion LVAUT 01/19/25 14:16 & Questions: Date: 01/19/25 01/19/25 14:16 Time: 14:24 01/19/25 14:16 Patient unable to answer at this time (ie. confused, unrespo /Reproduction History /Reproductive History - olive brine tester: /Reproductive Hx- olive brine tester Hx Now Gestational Age (in weeks): EDC: Hx Hx Para Hx Section SAB Active Medications Active Medications: Current Medications Generic Name Dose Route Start Last Admin Trade Name Freq PRN Reason Stop Dose Admin Acetaminophen 650 mg 01/19/25 14:15 01/23/25 03:28 Acetaminophen 325 Mg Tablet PO 650 mg Q6H PRN PRN Administration Pain 1-10 Or Fever >100.7 Al Hydroxide/Mg Hydroxide 30 ml 01/23/25 16:12 01/25/25 08:34 Mag Hydrox/Al Hydrox/Simeth 30 Ml Udc PO 30 ml Q2H PRN Administration REFLUX Apixaban 5 mg 01/23/25 10:00 01/26/25 22:00 Apixaban 5 Mg Tablet PO 5 mg BID MICHAEL Administration Atorvastatin Calcium 80 mg 01/19/25 22:00 01/26/25 22:00 Atorvastatin Calcium 80 Mg Tablet PO 80 mg QHS MICHAEL Administration Clopidogrel Bisulfate 75 mg 01/20/25 10:00 01/26/25 10:08 Clopidogrel Bisulfate 75 Mg Tablet PO 75 mg DAILY MICHAEL Administration Furosemide 40 mg 01/27/25 12:00 Furosemide 40 Mg Tablet PO DAILY MICHAEL Protocol Haloperidol Lactate 4 mg 01/25/25 22:00 01/27/25 09:42 Haloperidol Lactate 5 Mg/Ml Vial IV Not Given Q4 MICHAEL Protocol Hydroxyzine Pamoate 50 mg 01/19/25 22:00 01/26/25 21:57 Hydroxyzine Jo 25 Mg Capsule PO 50 mg BID MICHAEL Administration Sodium Chloride 250 mls @ 15 mls/hr 01/20/25 13:40 IV .[id number] PRN Saline Flush Sodium Chloride 250 mls @ 15 mls/hr 01/20/25 13:40 IV .[id number] PRN Additional IVPB Infusion Pantoprazole Sodium 40 mg/ 100 mls @ 300 mls/hr 01/25/25 22:00 01/26/25 22:20 Sodium Chloride IV Infused Q12 MICHAEL Infusion Sodium Chloride 1,000 mls @ 15 mls/hr 01/27/25 11:30 01/27/25 11:28 IV 15 mls/hr .Q48H MICHAEL Administration Levothyroxine Sodium 88 mcg 01/20/25 06:00 01/27/25 05:53 Levothyroxine 88 Mcg Tablet PO 88 mcg DAILY@0600 IMCHAEL Administration Lorazepam 1 mg 01/26/25 00:00 01/27/25 05:52 Lorazepam 2 Mg/Ml Syringe IV 1 mg Q6 MICHAEL Administration Losartan Potassium 100 mg 01/20/25 10:00 01/26/25 10:07 Losartan Potassium 100 Mg Tablet PO 100 mg DAILY MICHAEL Administration Protocol Meclizine HCl 50 mg 01/22/25 08:00 01/27/25 05:53 Meclizine Hcl 25 Mg Tablet PO 50 mg TID MICHAEL Administration Metoclopramide HCl 10 mg 01/20/25 00:00 01/27/25 05:52 Metoclopramide 10 Mg/2 Ml Vial IV 10 mg Q6 MICHAEL Administration Metoprolol Tartrate 50 mg 01/27/25 10:00 Metoprolol Tartrate 50 Mg Tablet PO BID MICHAEL Protocol Polyethylene Glycol 17 gm 01/20/25 15:00 01/26/25 10:09 Polyethylene Glycol 3350 17 Gm Packet PO Not Given DAILY MICHAEL Quetiapine Fumarate 50 mg 01/21/25 22:00 01/26/25 22:00 Quetiapine 25 Mg Tablet PO 50 mg QHS MICHAEL Administration Protocol Scopolamine HBr 1 patch 01/25/25 14:00 01/26/25 13:23 Scopolamine 1mg/72hr Patch TD 1 patch Q3D MICHAEL Administration Sodium Chloride 10 - 40 ml 01/20/25 13:40 01/26/25 05:01 0.9% Saline Lock 10 Ml Syringe IV 10 ml UD PRN Administration SALINE FLUSH Venlafaxine HCl 37.5 mg 01/20/25 10:00 01/26/25 11:20 Venlafaxine Xr 37.5 Mg Capsule PO 37.5 mg DAILY MICHAEL Administration [facility] Medical History (Updated 01/27/25 @ 11:[address] Cristiano Cartwright MD) Coronary atherosclerosis Right shoulder pain Home Medications ?Medication ?Instructions ?Recorded ?Last Taken ?Type levothyroxine 88 mcg capsule 88 mcg PO DAILY 10/07/23 Unknown History losartan 25 mg tablet 50 mg PO DAILY 10/07/23 Unknown History alprazolam 0.25 mg tablet 0.25 mg PO DAILY PRN anxiety 01/19/25 Unknown History atorvastatin 80 mg tablet 80 mg PO QHS 01/19/25 Unknown History clopidogrel 75 mg tablet 75 mg PO DAILY 01/19/25 Unknown History desvenlafaxine succinate 50 mg 50 mg PO DAILY 01/19/25 Unknown History tablet,extended release 24 hr furosemide 20 mg tablet 20 mg PO DAILY 01/19/25 Unknown History hydroxyzine HCl 25 mg tablet 50 mg PO BID 01/19/25 Unknown History metoprolol tartrate 25 mg tablet 25 mg PO DAILY Hypertension 01/19/25 01/27/25 History oxcarbazepine 150 mg tablet 150 mg PO BID 01/19/25 Unknown History pantoprazole 40 mg tablet,delayed 40 mg PO DAILY 01/19/25 Unknown History release quetiapine 25 mg tablet 25 - 50 mg PO QHS PRN PRN insomnia 01/19/25 Unknown History Allergy/AdvReac Type Severity Reaction Status Date / Time clindamycin AdvReac Other Verified 01/19/25 08:21 Penicillins AdvReac Other Verified 01/19/25 08:21 Sulfa (Sulfonamide AdvReac Other Verified 01/19/25 08:21 Antibiotics) Family History Father Hypertension CVA (cerebral vascular accident) Myocardial infarction Arthritis Mother Arthritis Cancer Sister Hypertension Arthritis Cancer Surgical History Hx of CABG H/O thumb surgery H/O wrist surgery Social History household members: significant other Smoking Status: Former smoker alcohol intake: never what type of physical activity do you participate in: walking Review of Systems (Anesthesia) ROS Narrative System reviewed and no additional complaints, except as documented.
--- NOTE | 2025-01-27 12:15 | EGD_PTH ---
PATIENT: ARIEL JACK LOC: [facility] U#:[id number] AGE/SX: 65/F ROOM: [facility] RE01/19/[address]: Dr. Cathie Aldana DO : 1960 BED: 1 DIS: 01/28/2025 SPEC #: [id number] RECD: 01/27/25 13:20 STATUS: DICK REMarivel #: [id number] ALEX: 01/27/25 12:[address]: Tomas Marroquin DEPT: SURGICAL PATHOLOGY RECD BY: Alphonso Max ENTERED: 01/27/25 14:17 SP TYPE: EGD BIOPSY OT DR: DO Dr. Franky Celis DO Dr. Prakash Chand, MD Heather Evans ENVIRONMENTAL LAWYERCorinneC CHELE Cooper PA-C Lindsey Atanasov, PA Tissues: A - Gastric mucous membrane Procedures: Surgery Specimen Level IV HEADER OPERATION: EGD, biopsy PRE-OP DIAGNOSIS: Gastroparesis TISSUE SUBMITTED: A- Gastric antrum biopsy MICROSCOPIC DIAGNOSIS A. Gastric antrum, biopsy: Antral mucosa with focal intestinal type mucosa - see note. Negative for Helicobacter-like organisms (H&E). Note: The intestinal mucosa is suggestive of gastroduodenal junction vs intestinal metaplasia. No dysplasia is seen. MICROSCOPIC DESCRIPTION Slides are reviewed. GROSS DESCRIPTION A. Received in fixative is one container labeled with the patient's name and designated Gastric antrum biopsy. The specimen consists of two irregular fragments of light guardado soft tissue that measure 0.5 and 0.7 cm. The specimen is totally submitted in one cassette. MI 01/27/2025 CPT:37423
--- NOTE | 2025-01-27 12:30 | PCM.PN.BLA ---
Progress Note Patient has been having abdominal pain with nausea and cramping. She is for EGD today. Physical Exam Const alert, oriented x3, no apparent distress and healthy appearing General Appearance: cooperative GI normal to inspection, nondistended, normoactive bowel sounds, soft to palpation, non-tender and non-distended Percussion: normal to percussion Rectal Exam: deferred Assessment & Plan Assessment/Plan (1) Gastroparesis: PLAN: Patient will undergo EGD with possible Dobbhoff tube placement. She was explained alternatives, risk and benefits include understanding bleeding, infection, subsequent perforation, need for return to . She will have an ASA of 3. Visit Charges Inpatient E&M: 99141 Init Hosp L2
--- NOTE | 2025-01-27 13:11 | OP.PROVAT_ITS ---
01/27/2025 Sabine Power Re : Upper GI endoscopy procedure for Adriana Power This procedure was performed on December. My impressions and recommendations are as follows: Impressions : - LA Grade B reflux esophagitis with no bleeding. - Acute gastritis. Biopsied. - No gross lesions in the entire examined duodenum. Recommendations : - Discharge patient to home. - Resume previous diet. - Continue present medications. - Await pathology results. My findings are described in the full procedure note, which is enclosed. If I can be of further assistance, please feel free to contact me at . Sincerely, Tomas Marroquin, 01/27/2025 1:11:11 PM This report has been signed electronically.
--- NOTE | 2025-01-27 13:11 | OP.EGD_ITS ---
Patient Name: Adriana Nguyen Procedure Date: 01/27/2025 12:36 PM Date of : 1960 Age: 65 Procedure: Upper GI endoscopy Indications: Epigastric abdominal pain, Functional Dyspepsia, Indigestion, Suspected esophageal reflux, Gastroparesis Providers: Tomas Marroqiun DO Medicines: Monitored Anesthesia Care Patient Profile: This is a 65 year old female. Refer to note in patient chart for documentation of history and physical. Patient has symptoms of acute epigastric abdominal pain and acute dyspepsia. Complications: No immediate complications. Procedure: Pre-Anesthesia Assessment: - Prior to the procedure, a History and Physical was performed, and patient medications and allergies were reviewed. The patient is competent. The risks and benefits of the procedure and the sedation options and risks were discussed with the patient. All questions were answered and informed consent was obtained. Patient identification and proposed procedure were verified by the physician in the pre-procedure area. Mental Status Examination: alert and oriented. Airway Examination: normal oropharyngeal airway and neck mobility. Respiratory Examination: clear to auscultation. CV Examination: normal. Prophylactic Antibiotics: The patient does not require prophylactic antibiotics. Prior Anticoagulants: The patient has taken no anticoagulant or antiplatelet agents except for NSAID medication. ASA Grade Assessment: II - A patient with mild systemic disease. After reviewing the risks and benefits, the patient was deemed in satisfactory condition to undergo the procedure. The anesthesia plan was to use monitored anesthesia care (MAC). Immediately prior to administration of medications, the patient was re-assessed for adequacy to receive sedatives. The heart rate, respiratory rate, oxygen saturations, blood pressure, adequacy of pulmonary ventilation, and response to care were monitored throughout the procedure. The physical status of the patient was re-assessed after the procedure. After obtaining informed consent, the endoscope was passed under direct vision. Throughout the procedure, the patient's blood pressure, pulse, and oxygen saturations were monitored continuously. The Endoscope was introduced through the mouth, and advanced to the third part of the duodenum. Small bowel enteroscopy was deemed necessary. The upper GI endoscopy was accomplished without difficulty. The patient tolerated the procedure well. Scope In: 12:54:24 PM Scope Out: 12:58:22 PM Total Procedure Duration Time 0 hours 3 minutes 58 seconds Findings: LA Grade B (one or more mucosal breaks greater than 5 mm, not extending between the tops of two mucosal folds) esophagitis with no bleeding was found 34 to 40 cm from the incisors. Patchy moderate inflammation characterized by erosions and erythema was found in the prepyloric region of the stomach and at the pylorus. Biopsies were taken with a cold forceps for histology. Biopsies were taken with a cold forceps for Helicobacter pylori testing. Verification of patient identification for the specimen was done. Estimated blood loss was minimal. No gross lesions were noted in the entire examined duodenum. Impression: - LA Grade B reflux esophagitis with no bleeding. - Acute gastritis. Biopsied. - No gross lesions in the entire examined duodenum. Recommendation: - Discharge patient to home. - Resume previous diet. - Continue present medications. - Await pathology results. Procedure Code(s): --- Professional --- 50413, Small intestinal endoscopy, enteroscopy beyond second portion of duodenum, not including ileum; with biopsy, single or multiple CPT copyright 2021 [employer]. All rights reserved. The codes documented in this report are preliminary and upon financial analyst intern review may be revised to meet current compliance requirements. Tomas Marroquin DO 01/27/2025 1:11:11 PM This report has been signed electronically. Number of Addenda: 0 Note Initiated On: 01/27/2025 12:36 PM
--- NOTE | 2025-01-27 13:18 | PCM.POST.ANE ---
Anesthesia: Postop Eval I Current Vital Signs Temperature: 97.1 F Pulse Rate: 61 Blood Pressure: 84/63 Respiratory Rate: 16 Pulse Ox: 93 Oxygen Delivery Method: Room Air Assessment Airway patent: Yes Spontaneous unlabored respirations: Yes Mental status: Asleep nausea: No Vomiting: No Anesthesia Complication: No Fluid Hydration Crystalloid volume administer (ml): 300 Total IV fluid infused: 300 Progress Note Anesthesia document: Postop Eval 1 completed: Yes
[2025-01-27] MEDS: Pantoprazole Sodium 40 MG in 0.9% Normal Saline (100mL MB+) 100 ML 100 MG IV (14:03)
[2025-01-27] MEDS: APIXABAN 5 MG TABLET PO ×2 (14:03→22:00)
[2025-01-27] MEDS: hydrOXYzine PAM 25 MG Capsule 50 MG PO ×2 (14:05→22:00)
[2025-01-27] MEDS: Pantoprazole Sodium 40 MG in 0.9% Normal Saline (100mL MB+) 100 ML 300 MG IV (22:00)
[2025-01-28 05:32] VITALS: BP 98/66; PULSE 61; RESP 16; TEMP 36.6; O2SAT 95
[2025-01-28 05:56] LABS: Hematocrit 32.7 % (37-47); Hemoglobin 11.2 g/dL (12.0-15.0); Mean Corp Hgb Conc 34.3 g/dL (32-36); Mean Corpuscular Volume 86.1 fL (81-99); Mean Platelet Vol. 9.9 fl (6.2-12.0); Platelet Count 164 K/mm3 (150-450); RBC Distribution Width CV 13.3 % (11.6-14.6); RBC Distribution Width SD 40.8 fl (35.1-43.9); Red Blood Count 3.80 M/mm3 (4.2-5.4); White Blood Count 4.8 K/mm3 (4.4-11.0)
[2025-01-28 06:34] LABS: AST(SGOT) 36 U/L (<=31); Alanine Aminotransfer ALT/SGPT 71 U/L (<=34); Albumin, Serum 3.5 g/dL (3.4-4.8); Alkaline Phosphatase 117 U/L (35-104); Anion Gap 11 (5-15); BUN 13 mg/dL (4-19); BUN/Creat Ratio 13.3 RATIO (10-20); Calcium,Total 8.7 mg/dL (7.6-11.0); Carbon Dioxide 28.8 mmol/L (21.0-32.0); Chloride 100 mmol/L (98-108); Estimated Creatinine Clearance 60.26 ml/min (50-250); Globulin 2.4 g/dL (2.2-4.2); Glucose 106 mg/dL (70-99); Potassium 3.7 mmol/L (3.3-5.1)
[2025-01-28 07:33] VITALS: BP 108/62; PULSE 68; RESP 16; TEMP 36.6; O2SAT 99
[2025-01-28 09:08] LABS: Anti-Smooth Muscle ABS 8 Units (0-19); HEPATITIS B SURFACE AG Negative (Negative); Hep C Antibodies Non Reactive (Non Reactive); Immunoglobulin A 157 mg/dL (87-352)
[2025-01-28] MEDS: hydrOXYzine PAM 25 MG Capsule 50 MG PO (09:21)
[2025-01-28 09:22] VITALS: PULSE 68
[2025-01-28] MEDS: APIXABAN 5 MG TABLET PO (09:24)
[2025-01-28] MEDS: Polyethylene Glycol 3350 17 GM PACKET PO (09:24)
--- NOTE | 2025-01-28 10:17 | PCM.DC.SUM ---
Providers Date of Admission: 01/19/25 Date of Discharge: 01/28/25 Primary Care Physician: Sabine Power PA-C Consultations 01/25/25 09:41 Consult: Gastroenterology Routine Consulting Provider: [facility] Reason for Consult: intractable nausea and vomiting EMERGENT Consult: No MD Notified: Yes Date Notified: 01/25/25 Time Notified: 09:41 Method of Notification: Text Reason For Visit: INTRACTABLE NAUSEA AND VOMITING Diagnosis Discharge Diagnosis (1) Gastroparesis: Status: Acute Code(s): K31.84 - Gastroparesis Medications at Discharge Home Medications levothyroxine 88 mcg capsule 88 mcg PO DAILY thyroid 10/07/23 alprazolam 0.25 mg tablet 0.25 mg PO DAILY PRN anxiety 01/19/25 atorvastatin 80 mg tablet 80 mg PO QHS cholesterol 01/19/25 clopidogrel 75 mg tablet 75 mg PO DAILY antiplatelet 01/19/25 desvenlafaxine succinate 50 mg tablet,extended release 24 hr 50 mg PO DAILY mental health 01/19/25 hydroxyzine HCl 25 mg tablet 50 mg PO BID allergies 01/19/25 oxcarbazepine 150 mg tablet 150 mg PO BID seizures 01/19/25 quetiapine 25 mg tablet 25 - 50 mg PO QHS PRN PRN insomnia 01/19/25 apixaban 5 mg tablet (Eliquis) 5 mg PO BID #60 tabs 01/28/25 furosemide 40 mg tablet 40 mg PO DAILY #30 tabs 01/28/25 haloperidol 2 mg tablet 2 mg PO TID PRN nausea and vomiting #90 tabs 01/28/25 metoclopramide HCl 5 mg tablet (Reglan) 5 mg PO Q8H #21 tabs 01/28/25 metoprolol tartrate 50 mg tablet 50 mg PO BID #60 tabs 01/28/25 pantoprazole 40 mg tablet,delayed release 40 mg PO BID #60 tabs 01/28/25 scopolamine base 1 mg over 3 days transdermal patch 1 patch transdermal Q3D #10 ea 01/28/25 Hospital Course Operations None Procedures 2-D Echocardiogram, EGD, EKG and - (MRCP/abdominal and pelvis CT/CTA chest/gallbladder ultrasound) Summary of Care Provided Minutes Spent on Discharge: 41 Hospital Course: Ms. Nguyen is a 65-year-old white female with previous CABG and July 2024 in [place] who presented to the emergency department at [facility] on 01/19/2025 with chief complaint of intractable nausea and vomiting. Patient is a daily user of marijuana Gummies. Apparently her symptoms started 48 hours prior to presentation after she ate some vegetables with a try and dressing on it. Vomitus was nonbloody and nonbilious and she had multiple episodes. She was seen in the emergency department prior to being admitted and discharged home with several medications that she did feel better and wanted to try to go home. She has been trying to use the Phenergan suppositories that were given to her with no relief. She has known history of gastroparesis and in conjunction with her marijuana use it was felt that this was likely hyperemesis from that plus potentially gastroparesis related to her marijuana use or otherwise. She was tried on multiple medications throughout her hospital stay and still by 01/25/2025 she was still having significant nausea and vomiting. Her labs were overtly unremarkable other than some mild transaminitis during her stay but that was felt likely related to passive congestion as she did develop a bout of heart failure which corrected quickly with diuresis. We did obtain an echocardiogram for that. She had known issues with her mitral valve and plans on being evaluated on February 11 at [facility]. Her echocardiogram which was done on 01/25/2025 showed an EF of 60 to 65% and normal LV function however she had 3+ mitral valve insufficiency and moderate to severe aortic valve stenosis with a valve score area of 0.9 cm?. She had no pulmonary regurgitation or hypertension. She did require oxygen up to 6 L but again, corrected very quickly. She also developed atrial fibrillation during her hospitalization which was a new diagnosis for her. She was maintained on beta-alyssa with some titration during her stay and ultimately discharged on her baseline dose and Eliquis was initiated. Given the lack of resolution, multiple imaging studies were pursued during her hospitalization. She had a CT of the abdomen/pelvis which showed tiny bones or sludge in the gallbladder lumen and ultrasound was recommended, punctate calcifications in the body of the pancreas and sigmoid diverticulosis without diverticulitis. Gallbladder ultrasound showed sludge within the gallbladder. When she became hypoxic we did obtain a CTA of her chest and this showed adenopathy in the AP window with precarinal lymph node that was felt possibly related to her previous sternotomy, heterogeneous increased density in the mid anterior mediastinum which they felt was postsurgical, small pleural effusion bilaterally, tiny patchy infiltrate in the right upper lung which was likely scar and no PE. With her abdominal pain and slightly dilated biliary duct GI recommended an MR be done and this was unremarkable. She was still having nausea and vomiting so an EGD was performed on 01/27/2025 and showed grade B reflux esophagitis, acute gastritis and no gross lesions in the entire duodenum. She was maintained on PPI that was increased to twice daily until she can follow-up with GI. Extensive chemical workup was pursued and pending at the time of discharge and will be reviewed at her GI follow-up with Dr. Marroquin. On the day of her EGD her nausea vomiting had significantly improved. After EGD we started diet which she tolerated well through the night and into the day and was feeling much better overall. We discussed the imperative need for her to discontinue marijuana gummy utilization and she voiced agreement and understanding. She was on room air at the time of discharge. We did send her with as needed Haldol, scopolamine patch and Reglan. If she is not using the Haldol she is to decrease the frequency of her Reglan use until she is not utilizing any further and then if that goes well she is to discontinue her scopolamine patch and see how she does with that. Prescription for apixaban was sent to the local pharmacy in addition to her antiemetics and the patient was able to be discharged home in stable condition. She is to follow-up with primary care as was scheduled at the [facility]. She is to follow-up with cardiology at [facility] as scheduled on 02/11/2025 and with GI as scheduled. She was discharged home in stable condition on 01/28/2025. Discharge diagnoses: Acute hypoxic respiratory failure secondary to acute decompensated HFpEF Intractable nausea and vomiting secondary to cyclic vomiting syndrome/gastroparesis from marijuana use Transaminitis secondary to passive congestion with heart failure New onset PAF with RVR--> had converted and was sinus rhythm for days prior to discharge 3+ mitral valve regurgitation Moderate to severe aortic valve stenosis CAD Essential hypertension Hyperlipidemia GERD Depression Naseem Insomnia Hypothyroidism Physical Exam Narrative Pt states that she is feeling well. No SOB, No Nausea. Eating well and anxious to go home. Const alert, oriented x3, no apparent distress, no limitations, healthy appearing and well nourished; Negative for average body habitus Constitutional Narrative: Overweight, Upper middle-aged, white female, standing up walking around the room, nursing at bedside, appears well, very pleasant General Appearance: cooperative, comfortable, well kempt and well developed Exam Limitations: no limitations Nutritional Appearance: overweight HEENT normocephalic, head/scalp atraumatic, hearing grossly normal bilaterally and moist oral mucous membranes HEENT Narrative: Mallampati 3 Eyes EOMs intact bilaterally and conjunctivae normal Eyes Narrative: No scleral icterus Neck supple Neck Narrative: Trachea midline Resp normal respiratory effort, no retractions, no use of accessory muscles and clear to auscultation bilaterally Auscultation: Negative for crackles, rales, rhonchi or wheezes Cardio regular rate, regular rhythm, S1 normal heart sound, no rub, no gallops and no clicks; Negative for S2 normal heart sound or no murmurs Cardio Narrative: 3 out of 6 systolic murmur loudest at left lower sternal border but also present at right upper sternal border with fairly significant prominence GI normal to inspection, nondistended, normoactive bowel sounds, soft to palpation and non-tender Extremity no clubbing, cyanosis or edema Extremity Narrative: Pedal pulses are 2+, radial pulses are 2+ Skin no rashes or lesions noted, no jaundice, no petechiae and no mottling Neuro oriented x3, moves all extremities and no focal motor deficits Speech: speech normal Psych affect normal Psych Narrative: Very pleasant, looks good, appears well Weight / BMI Weight Weight: 81.2 kg Body Mass Index (BMI) 28.8 ABG / Lab / Microbiology Data 01/28/25 05:30 01/28/25 05:30 Laboratory: Laboratory Results - last 24 hr 01/25/25 19:30: IgA 157, Anti-Mitochondrial Ab <20.0, Anti-Smooth Muscle Ab 8, Endomysial IgA Ab Negative, Tiss Transglutamin IgG <2, Tiss Transglutamin IgA <2, Anti-Gliadin IgG Ab 1, Anti-Gliadin IgA Ab 2, Hepatitis A IgM Ab Negative, Hep Bs Antigen Negative, Hep B Core IgM Ab Negative, Hepatitis C Ab (EIA) Non Reactive, Hep C Ab Comment Comment 01/28/25 05:30: WBC 4.8, RBC 3.80 L, Hgb 11.2 L, Hct 32.7 L, MCV 86.1, MCH 29.5, MCHC 34.3, RDW Std Deviation 40.8, RDW Coeff of Jaimie 13.3, Plt Count 164, MPV 9.9, Sodium 140, Potassium 3.7, Chloride 100, Carbon Dioxide 28.8, Anion Gap 11, BUN 13, Creatinine 1.00, Estim Creat Clear Calc 60.26, Est GFR (MDRD) Non-Af 63, BUN/Creatinine Ratio 13.3, Glucose 106 H, Calcium 8.7, Total Bilirubin 0.55, AST 36 H, ALT 71 H, Alkaline Phosphatase 117 H, Total Protein 5.9, Albumin 3.5, Globulin 2.4, Albumin/Globulin Ratio 1.5 Microbiology: Microbiology 01/19/25 20:30 Urine, Clean Catch Urine Culture - Final Mixed Gram Pos & Gram Neg Org Streptococcus group B D/C Instructions Discharge Activity: Return to Normal Activity DC O2, CPAP, BIPAP Needs Home O2 Discharge instructions: No DC home with Oxygen: No Meaningful Use Info Meaningful Use Meaningful Use Diagnoses (Choose all that apply): None applicable Discharge Plan Admission Admit Date/Time: 01/19/25 12:42 Primary Reason for Your Visit: Intractable Nausea and Vomiting Attending Provider: Cathie Aldana Primary Care Provider: Sabine Power Consulting Providers: Franky Sy; John Casey; Tomas Marroquin; Taylor Fuentes; Cherri Alcocer; Betsy Jones Instructions Additional Instructions / Restrictions: 1. Take Haldol as needed. If not needed, wean off of Reglan by decreasing 1 dose per day until not taking any. Once off reglan and doing well try off scopolamine patch. Discharge Orders/Prescriptions Prescriptions: New furosemide 40 mg Tablet 40 mg PO DAILY Qty: 30 0RF Eliquis 5 mg Tablet 5 mg PO BID Qty: 60 0RF metoprolol tartrate 50 mg Tablet 50 mg PO BID Qty: 60 2RF scopolamine base 1 mg over 3 days Patch 3 Day 1 patch transdermal Q3D Qty: 10 0RF haloperidol 2 mg tablet 2 mg PO TID PRN (Reason: nausea and vomiting) Qty: 90 0RF metoclopramide HCl [Reglan] 5 mg tablet 5 mg PO Q8H Qty: 21 0RF pantoprazole 40 mg Tablet,Delayed Release (Dr/Ec) 40 mg PO BID Qty: 60 0RF Continued levothyroxine 88 mcg capsule 88 mcg PO DAILY atorvastatin 80 mg tablet 80 mg PO QHS clopidogrel 75 mg tablet 75 mg PO DAILY alprazolam 0.25 mg tablet 0.25 mg PO DAILY PRN (Reason: anxiety) desvenlafaxine succinate 50 mg tablet extended release 24 hr 50 mg PO DAILY hydroxyzine HCl 25 mg tablet 50 mg PO BID quetiapine 25 mg tablet 25 - 50 mg PO QHS PRN PRN (Reason: insomnia) oxcarbazepine 150 mg tablet 150 mg PO BID Discontinued losartan 25 mg tablet 50 mg PO DAILY furosemide 20 mg tablet 20 mg PO DAILY metoprolol tartrate 25 mg tablet 25 mg PO DAILY pantoprazole 40 mg tablet,delayed release (DR/EC) 40 mg PO DAILY Referrals / Follow Up: Betsy Jones PA [Med Staff - Adv Practice Prof] - 02/25/25 8:00 am Crystal Mi NP-C [Non-Staff] - 02/03/25 8:00 am Danica Beal NP-C [[facility]] - See Referral Note (Call Friday and make a new pt appt) Disposition Disposition (needs filled in before D/C Order can be placed): Home, Self Care Charges/Coding Visit Charges Inpatient E&M: 49333 Disch Hosp >30min
--- NOTE | 2025-01-28 11:15 | CASEMGMT ---
Patient has order for discharge. Patient discharging on Eliquis, ANNAMARIE CM called Juan Manuel, copay is $4.80. RN CM in to discuss needs at discharge. Patient denies needs or help at discharge. RN CM updated patient regarding Eliquis copay. Patient had no further questions or concerns.
[2025-01-28 13:08] LABS: Albumin 3.8 g/dL (2.9-4.4); CMV Acute Antibody IgM < 30.0 AU/mL (0.0-29.9); EBV Acute VCA IgM < 36.0 U/mL (0.0-35.9); EBV-VCA IgG > 600.0 U/mL (0.0-17.9); Gamma Globulin 0.7 g/dL (0.4-1.8); Immunoglobulin A 148 mg/dL (87-352); Immunoglobulin G 806 mg/dL (586-1602); Immunoglobulin M 72 mg/dL (26-217); PROEL- TOTAL PROTEIN 6.5 g/dL (6.0-8.5)
== END 2025-01-28 11:40 | disposition home or self-care (01) | DRG 391 ==
LOC: ED 12:49 → PCU 13:39
PROVIDERS: Hospitalist; Internal Medicine Gastroenterology; Admitting Provider Internal Medicine; Emergency Provider Student in an Organized Health Care Education/Training Program; PCP Family Medicine; Visit Provider Internal Medicine
PROC: 0DJ08ZZ Inspection of Upper Intestinal Tract, Via Natural or Artificial Opening Endoscopic (ICD-10-PCS; CPT 43235; principal; 2025-01-27 12:10)
DX: K31.84 Gastroparesis (principal); J96.01 Acute respiratory failure with hypoxia; I50.33 Acute on chronic diastolic (congestive) heart failure; I11.0 Hypertensive heart disease with heart failure; E03.9 Hypothyroidism, unspecified; I48.0 Paroxysmal atrial fibrillation; E86.0 Dehydration; E66.3 Overweight; F32.A Depression, unspecified; I34.0 Nonrheumatic mitral (valve) insufficiency; K75.89 Other specified inflammatory liver diseases; F10.21 Alcohol dependence, in remission; F12.988 Cannabis use, unspecified with other cannabis-induced disorder; R11.2 Nausea with vomiting, unspecified; E78.5 Hyperlipidemia, unspecified; K57.30 Diverticulosis of large intestine without perforation or abscess without bleeding; K58.9 Irritable bowel syndrome, unspecified; I25.10 Atherosclerotic heart disease of native coronary artery without angina pectoris; K21.00 Gastro-esophageal reflux disease with esophagitis, without bleeding; F41.9 Anxiety disorder, unspecified; I35.0 Nonrheumatic aortic (valve) stenosis; K29.00 Acute gastritis without bleeding; I25.2 Old myocardial infarction; R74.8 Abnormal levels of other serum enzymes; G47.00 Insomnia, unspecified; Z95.1 Presence of aortocoronary bypass graft; Z79.899 Other long term (current) drug therapy; Z87.891 Personal history of nicotine dependence; Z79.890 Hormone replacement therapy; Z79.02 Long term (current) use of antithrombotics/antiplatelets; Z68.28 Body mass index [BMI] 28.0-28.9, adult
CPT/HCPCS: 36415; 71275; 74176; 74181; 76705; 80053; 80074; 81001; 82728; 82784; 83516; 83690; 83735; 83880; 84100; 84165; 84443; 84484; 85025; 85027; 85610; 85652; 85730; 86140; 86255; 86334; 86645; 86664; 86665; 87077; 87086; 87088; 88305; 93005; 93306; 96361; 96365; 96375; 97802; 97803; 99283; 99284; Q9967; A4216; J1938; J2405

== ENCOUNTER 2025-01-29 22:37 | Emergency (ER) | payer MEDICARE, OTHER, SELFPAY ==
[2025-01-29 22:37] VITALS: BP 143/72; PULSE 70; RESP 20; TEMP 36.4; O2SAT 94
[2025-01-29 23:00] VITALS: BMI 30.7
--- OUTSIDE RECORDS SUMMARY | 2025-01-29 23:30 | XMS RPT_ITS | CCD ---
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 mmol/L 21.0-32.0 [facility] Celiac AB,Comprehensiveon ANTIGLIADIN IGA 2 units Normal 0-19 [facility] Comment on above: Result Comment: Nega tive 0 - 19 Weak Positive 20 - 30 Moderate to Strong Positive >30 Performed By: #### L 3410.2350, L3000.0375, L800.1280, L803.2200 #### [facility] [address] [place], [address] ANTIGLIADIN IGG 1 units Normal 0-19 [facility] Comment on above: Result Comment: Nega tive 0 - 19 Weak Positive 20 - 30 Moderate to Strong Positive >30 Performed By: #### L 3410.2350, L3000.0375, L800.1280, L803.2200 #### [facility] [address] [place], [address] ENDOMYSIAL IGA Negative Normal Negative [facility] Comment on above: Performed By: #### L 3410.2350, L3000.0375, L800.1280, L803.2200 #### [facility] [address] [place], [address] IMMUNOGLOB A QN 157 mg/dL Normal 87-352 [facility] Comment on above: Performed By: #### L 3410.2350, L3000.0375, L800.1280, L803.2200 #### [facility] [address] [place], [address] tTG IGA <2 Normal 0-3 [facility] Comment on above: Result Comment: Nega tive 0 - 3 Weak Positive 4 - 10 Positive >10 Tissue Transglutaminase (tTG) has been identified as the endomysial antigen. Studies have demonstr- ated that endomysial IgA antibodies have over 99% specificity for gluten sensitive enteropathy. Performed By: #### L 3410.2350, L3000.0375, L800.1280, L803.2200 #### [facility] [address] [place], [address] tTG IGG <2 Normal 0-5 [facility] Comment on above: Result Comment: Nega tive 0 - 5 Weak Positive 6 - 9 Positive >9 Performed By: #### L 3410.2350, L3000.0375, L800.1280, L803.2200 #### [facility] [address] [place], [address] Chloride assayOrdered By: Concepción Aldana on 01-28-2025 Chloride [Moles/Vol] 100 mmol/L 98-108 [facility] Comprehensive Metabolic Prof ilon 01-28-2025 Albumin [Mass/Vol] 3.5 g/dL Normal 3.4-4.8 [facility] Comment on above: Performed By: #### L 100.0500, L500.4050 #### [facility] [address] [place], [address] Albumin/Globulin [Mass ratio] 1.5 {ratio} Normal 0.9-2.4 [facility] Comment on above: Performed By: #### L 100.0500, L500.4050 #### [facility] [address] [place], [address] ALK PHOS 117 U/L High 35-104 [facility] Comment on above: Performed By: #### L 100.0500, L500.4050 #### [facility] [address] [place], [address] ALT [Catalytic activity/Vol] 71 U/L High <=34 [facility] Comment on above: Performed By: #### L 100.0500, L500.4050 #### [facility] [address] [place], [address] AST [Catalytic activity/Vol] 36 U/L High <=31 [facility] Comment on above: Performed By: #### L 100.0500, L500.4050 #### [facility] [address] [place], [address] Bilirubin [Mass/Vol] 0.55 mg/dL Normal 0.00-1.30 [facility] Comment on above: Performed By: #### L 100.0500, L500.4050 #### [facility] [address] [place], [address] BUN/CRE 13.3 RATIO Normal 10-20 [facility] Comment on above: Performed By: #### L 100.0500, L500.4050 #### [facility] [address] [place], [address] Calcium [Mass/Vol] 8.7 mg/dL Normal 7.6-11.0 [facility] Comment on above: Performed By: #### L 100.0500, L500.4050 #### [facility] [address] [place], [address] Chloride [Moles/Vol] 100 mmol/L Normal 98-108 [facility] Comment on above: Performed By: #### L 100.0500, L500.4050 #### [facility] [address] [place], [address] CO2 [Moles/Vol] 28.8 mmol/L Normal 21.0-32.0 [facility] Comment on above: Performed By: #### L 100.0500, L500.4050 #### [facility] [address] [place], [address] Creatinine [Mass/Vol] 1.00 mg/dL Normal 0.70-1.20 [facility] Comment on above: Performed By: #### L 100.0500, L500.4050 #### [facility] [address] [place], [address] ECRCL 60.26 ml/min Normal 50-250 [facility] Comment on above: Performed By: #### L 100.0500, L500.4050 #### [facility] [address] [place], [address] GAP 11 Normal 5-15 [facility] Comment on above: Performed By: #### L 100.0500, L500.4050 #### [facility] [address] [place], [address] GFR/1.73 sq M.predicted among non-blacks MDRD (S/P/Bld) [Vol rate/Area] 63 mL/min/{1.73_m2} Normal >60 [facility] Comment on above: Result Comment: mL/m in/1.73m2 CKD-EPI Creatinine Equation (2020) Performed By: #### L 100.0500, L500.4050 #### [facility] [address] [place], [address] Globulin (S) [Mass/Vol] 2.4 g/dL Normal 2.2-4.2 [facility] Comment on above: Performed By: #### L 100.0500, L500.4050 #### [facility] [address] [place], [address] Glucose [Mass/Vol] 106 mg/dL High 70-99 [facility] Comment on above: Performed By: #### L 100.0500, L500.4050 #### [facility] [address] [place], [address] Potassium [Moles/Vol] 3.7 mmol/L Normal 3.3-5.1 [facility] Comment on above: Performed By: #### L 100.0500, L500.4050 #### [facility] [address] [place], [address] Sodium [Moles/Vol] 140 mmol/L Normal 133-145 [facility] Comment on above: Performed By: #### L 100.0500, L500.4050 #### [facility] [address] [place], [address] T PROT 5.9 g/dL Normal 5.9-8.4 [facility] Comment on above: Performed By: #### L 100.0500, L500.4050 #### [facility] [address] [place], [address] Urea nitrogen [Mass/Vol] 13 mg/dL Normal 4-19 [facility] Comment on above: Performed By: #### L 100.0500, L500.4050 #### [facility] [address] [place], [address] EBV Acute Prof IgG / IgMon 0 - EB Ab VCA, IgG > 600.0 High 0.0-17.9 [facility] Comment on above: Result Comment: Nega tive <18.0 Equivocal 18.0 - 21.9 Positive >21.9 Performed By: #### L 3100.3425, L3100.5850, L3400.1500 #### [facility] [address] [place], [address] EBV Ab VCA, IgM < 36.0 Normal 0.0-35.9 [facility] Comment on above: Result Comment: Nega tive <36.0 Equivocal 36.0 - 43.9 Positive >43.9 Performed By: #### L 3100.3425, L3100.5850, L3400.1500 #### [facility] [address] [place], [address] EBV NuAg Ab,IgG > 600.0 High 0.0-17.9 [facility] Comment on above: Result Comment: Nega tive <18.0 Equivocal 18.0 - 21.9 Positive >21.9 Performed By: #### L 3100.3425, L3100.5850, L3400.1500 #### [facility] [address] [place], [place], [id number] INTERPRETATION Comment Normal . [facility] Comment on above: Result Comment: EBV Interpretation Chart [place]: Antibody Present + Antibody Absent - Interpretation VCA-IgM VCA-IgG EBNA-IgG No previous infection/ - - - Susceptible Primary infection (new + + - or recent) Past Infection +or- + + See comment below* + - - *Results indicate infection with EBV at some time however cannot predict the timing of the infection since antibodies to EBNA usually develop after primary infection or, alternatively, approximately 5-10% of patients with EBV never develop antibodies to EBNA. Performed By: #### L 3100.3425, L3100.5850, L3400.1500 #### [facility] [address] [place], [place], [id number] Electrocardiogram reportOrde red By: Rozina Ochoa on 01-28-2025 EKG study [facility] Cardiovascular Services [address] [place] [address] 12 Lead EKG 01/27/25 0559 MR#: [id number] Acct: [id number] Name: ARIEL NGUYEN Rep #:[id number] : 1960 65 From: Rozina Ochoa MD Attending Dr: Dr. Cathie Aldana, DO S tatus: ADM IN Ordering Dr: Cristiano Cartwright MD Date: 01/27/25 Location: [facility] Sex: F C Admitted: 01/19/25 Test Reason : AM EKG Blood Pressure : */* mmHG Vent. Rate : 57 BPM Atrial Rate : 57 BPM P-R Int : 144 ms QRS Dur : 100 ms QT Int : 546 ms P-R-T Axes : 30 -4 -1 degrees QTcB Int : 531 ms Sinus bradycardia with Premature atrial complexes Possible Left atrial enlargement Left ventricular hypertrophy with repolarization abnormality ( R in aVL , Jigar product ) Cannot rule out Septal infarct , age undetermined Prolonged QT Abnormal ECG When compared with ECG of 23-Jan-2025 09:04, Premature atrial complexes are now Present Nonspecific T wave abnormality, improved in Lateral leads QT has lengthened Confirmed by ROZINA OCHOA ([id number]), editor book OSVALDO ESTRADA ([id number]) on 01/28/2025 5:46:28 AM Referred By: Confirmed By: ROZINA OCHOA 01/28/25 0546 Date _ Rozina Ochoa MD CC: CLARITZA Power; Dr. Cristiano Cartwright MD; Dr. Cathie Aldana DO ~ Signed [facility] Work Phone: [phone] Erythrocyte distribution wid th ratioOrdered By: Cathie Aldana on 01-28-2025 Erythrocyte distribution width (RBC) [Ratio] 13.3 % 11.6-14.6 [facility] Erythrocyte distribution wid th standard deviationOrdered By: Cathie Aldana on 01-28-2025 Erythrocyte distribution width (RBC) [Ratio] 40.8 fl 35.1-43.9 [facility] Glomerular filtration rate ( GFR) estimation/1.73 sq m using serum, plasma, or whole bOrdered By: Cathie Aldana on 01-28-2025 GFR/1.73 sq M.predicted among non-blacks MDRD (S/P/Bld) [Vol rate/Area] 63 mL/min/{1.73_m2} >60 [facility] Comment on above: mL/min/1.73m2 CKD-EP I Creatinine Equation (2020) Hematocrit Auto (Bld) [Volum e fraction]Ordered By: Cathie Aldana on 01-28-2025 Hematocrit (Bld) [Volume fraction] 32.7 % Low 37-47 [facility] Hemoglobin measurementOrdere d By: Cathie Aldana on 01-28-2025 Hemoglobin (Bld) [Mass/Vol] 11.2 g/dL Low 12.0-15.0 [facility] Hepatitis Panel Acuteon 01-01 COMMENT Comment Normal . [facility] Comment on above: Result Comment: Not infected with HCV unless early or acute infection is suspected (which may be delayed in an immunocompromised individual), or other evidence exists to indicate HCV infection. Performed By: #### L 3410.2350, L3000.0375, L800.1280, L803.2200 #### [facility] [address] [place], [address] HEP B CORE,IgM Negative Normal Negative [facility] Comment on above: Performed By: #### L 3410.2350, L3000.0375, L800.1280, L803.2200 #### [facility] [address] [place], [address] HEP B SURF AG Negative Normal Negative [facility] Comment on above: Performed By: #### L 3410.2350, L3000.0375, L800.1280, L803.2200 #### [facility] [address] [place], [address] HEP C VIRUS AB Non-Reactive Normal Non Reactive [facility] Comment on above: Performed By: #### L 3410.2350, L3000.0375, L800.1280, L803.2200 #### [facility] [address] [place], [address] HEPATITIS A-IgM Negative Normal Negative [facility] Comment on above: Result Comment: A ne gative anti-HAV IgM result suggests no recent or current HAV infection. Performed By: #### L 3410.2350, L3000.0375, L800.1280, L803.2200 #### [facility] [address] [place], [address] JAYDE + Protein Elect, Serumon 01-28-2025 Albumin [Mass/Vol] 3.8 g/dL Normal 2.9-4.4 [facility] Comment on above: Performed By: #### L 3100.3425, L3100.5850, L3400.1500 #### [facility] [address] [place], [address] Albumin/Globulin [Mass ratio] 1.5 {ratio} Normal 0.7-1.7 [facility] Comment on above: Performed By: #### L 3100.3425, L3100.5850, L3400.1500 #### [facility] [address] [place], [address] MQUCM-4-HCZI 0.3 g/dL Normal 0.0-0.4 [facility] Comment on above: Performed By: #### L 3100.3425, L3100.5850, L3400.1500 #### [facility] [address] [place], [address] CBPMI-8-TNMZ 0.8 g/dL Normal 0.4-1.0 [facility] Comment on above: Performed By: #### L 3100.3425, L3100.5850, L3400.1500 #### [facility] [address] [place], [address] BETA GLOBULIN 0.9 g/dL Normal 0.7-1.3 [facility] Comment on above: Performed By: #### L 3100.3425, L3100.5850, L3400.1500 #### [facility] [address] [place], [address] GAMMA GLOBULIN 0.7 g/dL Normal 0.4-1.8 [facility] Comment on above: Performed By: #### L 3100.3425, L3100.5850, L3400.1500 #### [facility] [address] [place], [address] Globulin (S) [Mass/Vol] 2.7 g/dL Normal 2.2-3.9 [facility] Comment on above: Performed By: #### L 3100.3425, L3100.5850, L3400.1500 #### [facility] [address] [place], [address] JAYDE RESULT,S Comment Normal . [facility] Comment on above: Result Comment: No m onoclonality detected. Performed By: #### L 3100.3425, L3100.5850, L3400.1500 #### [facility] [address] [place], [address] IMMUNOGLOB A QN 148 mg/dL Normal 87-352 [facility] Comment on above: Performed By: #### L 3100.3425, L3100.5850, L3400.1500 #### [facility] [address] [place], [address] IMMUNOGLOB G QN 806 mg/dL Normal 586-1602 [facility] Comment on above: Performed By: #### L 3100.3425, L3100.5850, L3400.1500 #### [facility] [address] [place], [address] IMMUNOGLOB M QN 72 mg/dL Normal 26-217 [facility] Comment on above: Performed By: #### L 3100.3425, L3100.5850, L3400.1500 #### [facility] [address] [place], [address] M-Channing Not Observed Normal Not Observed [facility] Comment on above: Performed By: #### L 3100.3425, L3100.5850, L3400.1500 #### [facility] [address] [place], [address] NOTE: Comment Normal . [facility] Comment on above: Result Comment: Prot ein electrophoresis scan will follow via computer, mail, or project landscape architect delivery. Performed By: #### L 3100.3425, L3100.5850, L3400.1500 #### [facility] [address] [place], [place], [address] Protein [Mass/Vol] 6.5 g/dL Normal 6.0-8.5 [facility] Comment on above: Performed By: #### L 3100.3425, L3100.5850, L3400.1500 #### [facility] [address] [place], [place], [address] Laboratory - Chemistry and C hemistry - challengeOrdered By: Cathie Aldana on 01-28-2025 AST [Catalytic activity/Vol] 36 U/L High <32 [facility] MCV (mean corpuscular volume ) determinationOrdered By: Cathie Aldana on 01-28-2025 MCV (RBC) [Entitic vol] 86.1 fL 81-99 [facility] Mean corpuscular hemoglobin (MCH) determinationOrdered By: Cathie Aldana on 01-28-2025 MCH (RBC) [Entitic mass] 29.5 pg 27.0-32.0 [facility] Mean corpuscular hemoglobin concentration (MCHC) determinationOrdered By: Cathie Aldana on 01-28-2025 MCHC (RBC) [Mass/Vol] 34.3 g/dL 32-36 [facility] Mean platelet volume determi nationOrdered By: Cathie Aldana on 01-28-2025 Platelet mean volume (Bld) [Entitic vol] 9.9 fL 6.2-12.0 [facility] Platelet countOrdered By: Concepción Aldana on 01-28-2025 Platelets (Bld) [#/Vol] 164 10*3/uL 150-450 [facility] Potassium measurement (mass/ volume)Ordered By: Cathie Aldana on 01-28-2025 Potassium (Unsp spec) [Mass/Vol] 3.7 mmol/L 3.3-5.1 [facility] RBC Auto (Bld) [#/Vol]Ordere d By: Cathie Aldana on 01-28-2025 RBC (Bld) [#/Vol] 3.80 10*6/uL Low 4.2-5.4 [facility] Serum creatinine measurement (mass/volume)Ordered By: Cathie Aldana on 01-28-2025 Creatinine [Mass/Vol] 1.00 mg/dL 0.70-1.20 [facility] Serum globulin measurementOr dered By: Cathie Aldana on 01-28-2025 Globulin (S) [Mass/Vol] 2.4 g/dL 2.2-4.2 [facility] Serum glucose measurement (m ass/volume)Ordered By: Cathie Aldana on 01-28-2025 Glucose [Mass/Vol] 106 mg/dL High 70-99 [facility] Serum or plasma alanine fuentes otransferase (ALT) measurementOrdered By: Cathie Aldana on 01-28-2025 ALT [Catalytic activity/Vol] 71 U/L High <35 [facility] Serum or plasma albumin sami urement (mass/volume)Ordered By: Cathie Aldana on 01-28-2025 Albumin [Mass/Vol] 3.5 g/dL 3.4-4.8 [facility] Serum or plasma albumin/glob ulin mass ratioOrdered By: Cathie Aldana on 01-28-2025 Albumin/Globulin [Mass ratio] 1.5 {ratio} 0.9-2.4 [facility] Serum or plasma alkaline fam sphatase measurementOrdered By: Cathie Aldana on 01-28-2025 ALP [Catalytic activity/Vol] 117 U/L High 35-104 [facility] Serum or plasma calcium sami urement (mass/volume)Ordered By: Cathie Aldana on 01-28-2025 Calcium [Mass/Vol] 8.7 mg/dL 7.6-11.0 [facility] Serum or plasma urea nitroge n measurement (mass/volume)Ordered By: Cathie Aldana on 01-28-2025 Urea nitrogen [Mass/Vol] 13 mg/dL 4-19 [facility] Sodium levelOrdered By: Rhonda Aldana on 01-28-2025 Sodium [Moles/Vol] 140 mmol/L 133-145 [facility] Total proteinOrdered By: Willow Aldana on 01-28-2025 Protein [Mass/Vol] 5.9 g/dL 5.9-8.4 [facility] White blood cell (WBC) count Ordered By: Cathie Aldana on 01-28-2025 WBC (Bld) [#/Vol] 4.8 10*3/uL 4.4-11.0 [facility] 12 Lead EKGon 01-27-2025 12 Lead EKG [facility] Cardiovascular Services [address] [place] [address] 12 Lead EKG 01/27/25 0559 MR#: [id number] Acct: [id number] Name: ARIEL NGUYEN Rep #: [id number] : 1960 65 From: Rozina Ochoa MD Attending Dr: Dr. Cathie Aldana DO Status: ADM I N Ordering Dr: Cristiano Cartwright MD Date: 01/27/25 Location: [facility] Sex: F C Admitted: 01/19/25 Test Reason : AM EKG Blood Pressure : */* mmHG Vent. Rate : 57 BPM Atrial Rate : 57 BPM P-R Int : 144 ms QRS Dur : 100 ms QT Int : 546 ms P-R-T Axes : 30 -4 -1 degrees QTcB Int : 531 ms Sinus bradycardia with Premature atrial complexes Possible Left atrial enlargement Left ventricular hypertrophy with repolarization abnormality ( R in aVL , Jigar product ) Cannot rule out Septal infarct , age undetermined Prolonged QT Abnormal ECG When compared with ECG of 23-Jan-2025 09:04, Premature atrial complexes are now Present Nonspecific T wave abnormality, improved in Lateral leads QT has lengthened Confirmed by ROZINA OCHOA ([id number]), editor book OSVALDO ESTRADA ([id number]) on 01/28/2025 5:46:28 AM Referred By: Confirmed By: ROZINA OCHOA 01/28/25 0546 Date Rozina Ochoa MD CC: CLARITZA Power; Dr. Cristiano Cartwright MD; Dr. Cathie Aldana, DO Signed Normal [facility] Absolute lymphocyte countOrd ered By: Cathie Aldana on 01-27-2025 Lymphocytes Auto (Unsp spec) [#/Vol] 2.08 10*3/uL 0.83-4.51 [facility] Absolute neutrophil countOrd ered By: Cathie Aldana on 01-27-2025 Neutrophils (Bld) [#/Vol] 3.4 10*3/uL 2.0-7.7 [facility] Anti-Mitochondrial ABon 01-01 ANTIMITOCHON AB <20.0 Normal 0.0-20.0 [facility] Comment on above: Result Comment: Nega tive 0.0 - 20.0 Equivocal 20.1 - 24.9 Positive >24.9 Mitochondrial (M2) Antibodies are found in 90-96% of patients with primary biliary cirrhosis. Performed at: [facility] [address] [id number] Pastrycook'S Assistant: Lul Parish PhD, Phone: [phone] Performed By: #### L 3410.8300, L3000.0375, L800.1280, L803.2201 #### [facility] Laboratory [address] [place], [address] Automated lymphocyte count a s percentage of total leukocytesOrdered By: Cathie Aldana on 01-27-2025 Lymphocytes/100 WBC Auto (Unsp spec) 33.0 % 19-41 [facility] Basophil percentageOrdered B y: Cathie Aldana on 01-27-2025 Basophils/100 WBC (Bld) 0.6 % 0-1 [facility] CBC W/Diff, Automatedon 01-01 Absolute Lymph 2.08 X10 3/uL Normal 0.83-4.51 [facility] Comment on above: Performed By: #### L 3100.3425, L3100.5850, L3400.1500 #### [facility] Laboratory [address] [place], [address] Absolute Neut 3.4 X10 3/uL Normal 2.0-7.7 [facility] Comment on above: Performed By: #### L 3100.3425, L3100.5850, L3400.1500 #### [facility] Laboratory [address] [place], [address] Basophils/100 WBC (Bld) 0.6 % Normal 0-1 [facility] Comment on above: Performed By: #### L 3100.3425, L3100.5850, L3400.1500 #### [facility] [address] [place], [address] Eosinophils/100 WBC (Bld) 3.5 % Normal 0-5 [facility] Comment on above: Performed By: #### L 3100.3425, L3100.5850, L3400.1500 #### [facility] [address] [place], [address] Erythrocyte distribution width (RBC) [Ratio] 13.4 % Normal 11.6-14.6 [facility] Comment on above: Performed By: #### L 3100.3425, L3100.5850, L3400.1500 #### [facility] [address] [place], [address] Hematocrit (Bld) [Volume fraction] 31.8 % Low 37-47 [facility] Comment on above: Performed By: #### L 3100.3425, L3100.5850, L3400.1500 #### [facility] [address] [place], [address] Hemoglobin (Bld) [Mass/Vol] 11.4 g/dL Low 12.0-15.0 [facility] Comment on above: Performed By: #### L 3100.3425, L3100.5850, L3400.1500 #### [facility] [address] [place], [address] IG% 0.300 Normal 0.0-0.9 [facility] Comment on above: Result Comment: IG% - Immature Granulocytes (promyelocytes, myelocytes and metamyelocytes) > 1% indicates that a LEFT SHIFT is Present. Performed By: #### L 3100.3425, L3100.5850, L3400.1500 #### [facility] [address] [place], [address] Lymphocytes/100 WBC (Bld) 33.0 % Normal 19-41 [facility] Comment on above: Performed By: #### L 3100.3425, L3100.5850, L3400.1500 #### [facility] [address] [place], [address] MCH (RBC) [Entitic mass] 29.8 pg Normal 27.0-32.0 [facility] Comment on above: Performed By: #### L 3100.3425, L3100.5850, L3400.1500 #### [facility] [address] [place], [address] MCHC (RBC) [Mass/Vol] 35.8 g/dL Normal 32-36 [facility] Comment on above: Performed By: #### L 3100.3425, L3100.5850, L3400.1500 #### [facility] [address] [place], [address] MCV (RBC) [Entitic vol] 83.2 fL Normal 81-99 [facility] Comment on above: Performed By: #### L 3100.3425, L3100.5850, L3400.1500 #### [facility] [address] [place], [address] Monocytes/100 WBC (Bld) 9.2 % Normal 0-10 [facility] Comment on above: Performed By: #### L 3100.3425, L3100.5850, L3400.1500 #### [facility] [address] [place], [address] Neutrophils/100 WBC (Bld) 53.4 % Normal 47-70 [facility] Comment on above: Performed By: #### L 3100.3425, L3100.5850, L3400.1500 #### [facility] [address] [place], [address] Nucleated RBC (Bld) [#/Vol] 0 10*3/uL Normal 0-5 [facility] Comment on above: Performed By: #### L 3100.3425, L3100.5850, L3400.1500 #### [facility] [address] [place], [address] Platelet mean volume (Bld) [Entitic vol] 10.1 fL Normal 6.2-12.0 [facility] Comment on above: Performed By: #### L 3100.3425, L3100.5850, L3400.1500 #### [facility] [address] [place], [address] Platelets (Bld) [#/Vol] 176 10*3/uL Normal 150-450 [facility] Comment on above: Performed By: #### L 3100.3425, L3100.5850, L3400.1500 #### [facility] [address] [place], [address] RBC (Bld) [#/Vol] 3.82 10*6/uL Low 4.2-5.4 [facility] Comment on above: Performed By: #### L 3100.3425, L3100.5850, L3400.1500 #### [facility] [address] [place], [address] RDW SD 39.8 fl Normal 35.1-43.9 [facility] Comment on above: Performed By: #### L 3100.3425, L3100.5850, L3400.1500 #### [facility] [address] [place], [address] WBC (Bld) [#/Vol] 6.3 10*3/uL Normal 4.4-11.0 [facility] Comment on above: Performed By: #### L 3100.3425, L3100.5850, L3400.1500 #### [facility] [address] [place], [address] Comprehensive Metabolic Prof deborah 01-27-2025 Albumin [Mass/Vol] 3.6 g/dL Normal 3.4-4.8 [facility] Comment on above: Performed By: #### L 3100.3425, L3100.5850, L3400.1500 #### [facility] [address] [place], [address] Albumin/Globulin [Mass ratio] 1.5 {ratio} Normal 0.9-2.4 [facility] Comment on above: Performed By: #### L 3100.3425, L3100.5850, L3400.1500 #### [facility] [address] [place], [address] ALK PHOS 127 U/L High 35-104 [facility] Comment on above: Performed By: #### L 3100.3425, L3100.5850, L3400.1500 #### [facility] [address] [place], [address] ALT [Catalytic activity/Vol] 84 U/L High <=34 [facility] Comment on above: Performed By: #### L 3100.3425, L3100.5850, L3400.1500 #### [facility] [address] [place], [address] AST [Catalytic activity/Vol] 32 U/L Normal <=31 [facility] Comment on above: Performed By: #### L 3100.3425, L3100.5850, L3400.1500 #### [facility] [address] [place], [address] Bilirubin [Mass/Vol] 0.89 mg/dL Normal 0.00-1.30 [facility] Comment on above: Performed By: #### L 3100.3425, L3100.5850, L3400.1500 #### [facility] [address] [place], [address] BUN/CRE 13.3 RATIO Normal 10-20 [facility] Comment on above: Performed By: #### L 3100.3425, L3100.5850, L3400.1500 #### [facility] [address] [place], [address] Calcium [Mass/Vol] 8.9 mg/dL Normal 7.6-11.0 [facility] Comment on above: Performed By: #### L 3100.3425, L3100.5850, L3400.1500 #### [facility] [address] [place], [address] Chloride [Moles/Vol] 96 mmol/L Low 98-108 [facility] Comment on above: Performed By: #### L 3100.3425, L3100.5850, L3400.1500 #### [facility] [address] [place], [address] CO2 [Moles/Vol] 30.7 mmol/L Normal 21.0-32.0 [facility] Comment on above: Performed By: #### L 3100.3425, L3100.5850, L3400.1500 #### [facility] [address] [place], [address] Creatinine [Mass/Vol] 0.96 mg/dL Normal 0.70-1.20 [facility] Comment on above: Performed By: #### L 3100.3425, L3100.5850, L3400.1500 #### [facility] [address] [place], [address] ECRCL 62.77 ml/min Normal 50-250 [facility] Comment on above: Performed By: #### L 3100.3425, L3100.5850, L3400.1500 #### [facility] [address] [place], [address] GAP 12 Normal 5-15 [facility] Comment on above: Performed By: #### L 3100.3425, L3100.5850, L3400.1500 #### [facility] [address] [place], [address] GFR/1.73 sq M.predicted among non-blacks MDRD (S/P/Bld) [Vol rate/Area] 66 mL/min/{1.73_m2} Normal >60 [facility] Comment on above: Result Comment: mL/m in/1.73m2 CKD-EPI Creatinine Equation (2020) Performed By: #### L 3100.3425, L3100.5850, L3400.1500 #### [facility] [address] [place], [address] Globulin (S) [Mass/Vol] 2.4 g/dL Normal 2.2-4.2 [facility] Comment on above: Performed By: #### L 3100.3425, L3100.5850, L3400.1500 #### [facility] [address] [place], [address] Glucose [Mass/Vol] 109 mg/dL High 70-99 [facility] Comment on above: Performed By: #### L 3100.3425, L3100.5850, L3400.1500 #### [facility] [address] [place], [address] Potassium [Moles/Vol] 3.1 mmol/L Low 3.3-5.1 [facility] Comment on above: Performed By: #### L 3100.3425, L3100.5850, L3400.1500 #### [facility] [address] [place], [address] Sodium [Moles/Vol] 138 mmol/L Normal 133-145 [facility] Comment on above: Performed By: #### L 3100.3425, L3100.5850, L3400.1500 #### [facility] [address] [place], [address] T PROT 6.0 g/dL Normal 5.9-8.4 [facility] Comment on above: Performed By: #### L 3100.3425, L3100.5850, L3400.1500 #### [facility] [address] [place], [address] Urea nitrogen [Mass/Vol] 13 mg/dL Normal 4-19 [facility] Comment on above: Performed By: #### L 3100.3425, L3100.5850, L3400.1500 #### [facility] [address] [place], [address] EGD Reporton 01-27-2025 EGD Report [facility] Medical Records Department [address] [place] [address] EGD Report MR#: [id number] Acct: [id number] Name: ARIEL NGUYEN Rep #: [id number] : 1960 65 From: Tomas Marroquin DO PCP: Sabine Power PA-C Status:ADM IN Patient Name: Ariel Nguyen Procedure Date: 01/27/2025 12:36 PM Date of : 1960 Age: 65 Procedure: Upper GI endoscopy Indications: Epigastric abdominal pain, Functional Dyspepsia, Indigestion, Suspected esophageal reflux, Gastroparesis Providers: Tomas Marroquin DO Medicines: Monitored Anesthesia Care Patient Profile: This is a 65 year old female. Refer to note in patient chart for documentation of history and physical. Patient has symptoms of acute epigastric abdominal pain and acute dyspepsia. Complications: No immediate complications. Procedure: Pre-Anesthesia Assessment: - Prior to the procedure, a History and Physical was performed, and patient medications and allergies were reviewed. The patient is competent. The risks and benefits of the procedure and the sedation options and risks were discussed with the patient. All questions were answered and informed consent was obtained. Patient identification and proposed procedure were verified by the physician in the pre-procedure area. Mental Status Examination: alert and oriented. Airway Examination: normal oropharyngeal airway and neck mobility. Respiratory Examination: clear to auscultation. CV Examination: normal. Prophylactic Antibiotics: The patient does not require prophylactic antibiotics. Prior Anticoagulants: The patient has taken no anticoagulant or antiplatelet agents except for NSAID medication. ASA Grade Assessment: II - A patient with mild systemic disease. After reviewing the risks and benefits, the patient was deemed in satisfactory condition to undergo the procedure. The anesthesia plan was to use monitored anesthesia care (MAC). Immediately prior to administration of medications, the patient was re-assessed for adequacy to receive sedatives. The heart rate, respiratory rate, oxygen saturations, blood pressure, adequacy of pulmonary ventilation, and response to care were monitored throughout the procedure. The physical status of the patient was re-assessed after the procedure. After obtaining informed consent, the endoscope was passed under direct vision. Throughout the procedure, the patient's blood pressure, pulse, and oxygen saturations were monitored continuously. The Endoscope was introduced through the mouth, and advanced to the third part of the duodenum. Small bowel enteroscopy was deemed necessary. The upper GI endoscopy was accomplished without difficulty. The patient tolerated the procedure well. Scope In: 12:54:24 PM Scope Out: 12:58:22 PM Total Procedure Duration Time 0 hours 3 minutes 58 seconds Findings: LA Grade B (one or more mucosal breaks greater than 5 mm, not extending between the tops of two mucosal folds) esophagitis with no bleeding was found 34 to 40 cm from the incisors. Patchy moderate inflammation characterized by erosions and erythema was found in the prepyloric region of the stomach and at the pylorus. Biopsies were taken with a cold forceps for histology. Biopsies were taken with a cold forceps for Helicobacter pylori testing. Verification of patient identification for the specimen was done. Estimated blood loss was minimal. No gross lesions were noted in the entire examined duodenum. Impression: - LA Grade B reflux esophagitis with no bleeding. - Acute gastritis. Biopsied. - No gross lesions in the entire examined duodenum. Recommendation: - Discharge patient to home. - Resume previous diet. - Continue present medications. - Await pathology results. Procedure Code(s): --- Professional --- 29973, Small intestinal endoscopy, enteroscopy beyond second portion of duodenum, not including ileum; with biopsy, single or multiple CPT copyright 2021 [employer]. All rights reserved. The codes documented in this report are preliminary and upon beam sealer review may be revised to meet current compliance requirements. Tomas Marroquin DO 01/27/2025 1:11:11 PM This report has been signed electronically. Number of Addenda: 0 Note Initiated On: 01/27/2025 12:36 PM 01/27/25 1311 Date Tomas Marroquin DO Cosigner Signature: Date (if indicated) CC: CLARITZA Power; Tomas Marroquin DO Date Dictated: 01/27/25 1236 Date Transcribed: Network Operations Analyst: BRISEIDA Signed Normal [facility] Eosinophil percentageOrdered By: Cathie Aldana on 01-27-2025 Eosinophils/100 WBC (Bld) 3.5 % 0-5 [facility] Immature granulocytes/100 WB C Auto (Bld)Ordered By: Cathie Aldana on 01-27-2025 Immature granulocytes/100 WBC (Bld) 0.300 % 0.0-0.9 [facility] Comment on above: IG% - Immature Granu locytes (promyelocytes, myelocytes and metamyelocytes) > 1% indicates that a LEFT SHIFT is Present. MR/OP.Rosanna 01-27-2025 MR/OP.[facility] Medical Records Department [address] [place] [address] Provation Physician Letter MR#: [id number] Acct: [id number] Name: ARIEL NGUYEN Rep #: [id number] : 1960 65 From: Tomas Marroquin DO PCP: Sabine Power PA-C Status:ADM IN 01/27/2025 Sabine Power Re : Upper GI endoscopy procedure for Ariel Nguyen Roberto Power This procedure was performed on , January 27, 2025. My impressions and recommendations are as follows: Impressions : - LA Grade B reflux esophagitis with no bleeding. - Acute gastritis. Biopsied. - No gross lesions in the entire examined duodenum. Recommendations : - Discharge patient to home. - Resume previous diet. - Continue present medications. - Await pathology results. My findings are described in the full procedure note, which is enclosed. If I can be of further assistance, please feel free to contact me at . Sincerely, Tomas Marroquin DO 01/27/2025 1:11:11 PM This report has been signed electronically. 01/27/25 1311 Date Tomas Lopez Cosigner Signature: Date (if indicated) CC: CHELE Fuentes; CHELE Alcocer; CLARITZA Power; Dr. Cathie Aldana, DO; Dr. Franky Sy DO; Dr. John Casey MD; FRANCIS Weeks; Tomas Marroquin DO Date Dictated: 01/27/25 1236 Date Transcribed: Network Operations Analyst: BRISEIDA Signed [facility] MR/POSTOP.[facility] 01-27-2025 MR/POSTOP.[facility] Medical Records Department [address] [place] [address] Anesthesia Postop Eval I 01/27/25 1318 MR#: [id number] Acct: [id number] Name: ARIEL NGUYEN Rep #: [id number] : 1960 65 From: Jona Jennings PCP: Sabine Power PA-C Status:ADM IN Y Race: C Location: [place] [address] Anesthesia: Postop Eval I Current Vital Signs Temperature: 97.1 F Pulse Rate: 61 Blood Pressure: 84/63 Respiratory Rate: 16 Pulse Ox: 93 Oxygen Delivery Method: Room Air Assessment Airway patent: Yes Spontaneous unlabored respirations: Yes Mental status: Asleep nausea: No Vomiting: No Anesthesia Complication: No Fluid Hydration Crystalloid volume administer (ml): 300 Total IV fluid infused: 300 Progress Note Anesthesia document: Postop Eval 1 completed: Yes 01/27/25 1319 Date Jona Lemons Signature: Date CC: Signed Normal [facility] Monocyte percentageOrdered B y: Cathie Aldana on 01-27-2025 Monocytes/100 WBC (Bld) 9.2 % 0-10 [facility] Neutrophil percentageOrdered By: Cathie Aldana on 01-27-2025 Neutrophils/100 WBC (Bld) 53.4 % 47-70 [facility] Nucleated red blood cell per centageOrdered By: Cathie Aldana on 01-27-2025 Nucleated RBC/100 WBC (Bld) [Ratio] 0 % 0-5 [facility] CBC W/Diff, Automatedon 01-01 Absolute Lymph 2.37 X10 3/uL Normal 0.83-4.51 [facility] Comment on above: Performed By: #### L 3100.3425, L3100.5850, L3400.1500 #### [facility] [address] [place], [address] Absolute Neut 4.1 X10 3/uL Normal 2.0-7.7 [facility] Comment on above: Performed By: #### L 3100.3425, L3100.5850, L3400.1500 #### [facility] [address] [place], [address] Basophils/100 WBC (Bld) 0.9 % Normal 0-1 [facility] Comment on above: Performed By: #### L 3100.3425, L3100.5850, L3400.1500 #### [facility] [address] [place], [address] Eosinophils/100 WBC (Bld) 3.7 % Normal 0-5 [facility] Comment on above: Performed By: #### L 3100.3425, L3100.5850, L3400.1500 #### [facility] [address] [place], [address] Erythrocyte distribution width (RBC) [Ratio] 13.4 % Normal 11.6-14.6 [facility] Comment on above: Performed By: #### L 3100.3425, L3100.5850, L3400.1500 #### [facility] [address] [place], [address] Hematocrit (Bld) [Volume fraction] 33.9 % Low 37-47 [facility] Comment on above: Performed By: #### L 3100.3425, L3100.5850, L3400.1500 #### [facility] [address] [place], [address] Hemoglobin (Bld) [Mass/Vol] 11.9 g/dL Low 12.0-15.0 [facility] Comment on above: Performed By: #### L 3100.3425, L3100.5850, L3400.1500 #### [facility] [address] [place], [address] IG% 0.400 Normal 0.0-0.9 [facility] Comment on above: Result Comment: IG% - Immature Granulocytes (promyelocytes, myelocytes and metamyelocytes) > 1% indicates that a LEFT SHIFT is Present. Performed By: #### L 3100.3425, L3100.5850, L3400.1500 #### [facility] [address] [place], [address] Lymphocytes/100 WBC (Bld) 31.7 % Normal 19-41 [facility] Comment on above: Performed By: #### L 3100.3425, L3100.5850, L3400.1500 #### [facility] [address] [place], [address] MCH (RBC) [Entitic mass] 29.8 pg Normal 27.0-32.0 [facility] Comment on above: Performed By: #### L 3100.3425, L3100.5850, L3400.1500 #### [facility] [address] [place], [address] MCHC (RBC) [Mass/Vol] 35.1 g/dL Normal 32-36 [facility] Comment on above: Performed By: #### L 3100.3425, L3100.5850, L3400.1500 #### [facility] [address] [place], [address] MCV (RBC) [Entitic vol] 85.0 fL Normal 81-99 [facility] Comment on above: Performed By: #### L 3100.3425, L3100.5850, L3400.1500 #### [facility] [address] [place], [address] Monocytes/100 WBC (Bld) 9.0 % Normal 0-10 [facility] Comment on above: Performed By: #### L 3100.3425, L3100.5850, L3400.1500 #### [facility] [address] [place], [address] Neutrophils/100 WBC (Bld) 54.3 % Normal 47-70 [facility] Comment on above: Performed By: #### L 3100.3425, L3100.5850, L3400.1500 #### [facility] [address] [place], [address] Nucleated RBC (Bld) [#/Vol] 0 10*3/uL Normal 0-5 [facility] Comment on above: Performed By: #### L 3100.3425, L3100.5850, L3400.1500 #### [facility] [address] [place], [address] Platelet mean volume (Bld) [Entitic vol] 9.9 fL Normal 6.2-12.0 [facility] Comment on above: Performed By: #### L 3100.3425, L3100.5850, L3400.1500 #### [facility] [address] [place], [address] Platelets (Bld) [#/Vol] 175 10*3/uL Normal 150-450 [facility] Comment on above: Performed By: #### L 3100.3425, L3100.5850, L3400.1500 #### [facility] [address] [place], [address] RBC (Bld) [#/Vol] 3.99 10*6/uL Low 4.2-5.4 [facility] Comment on above: Performed By: #### L 3100.3425, L3100.5850, L3400.1500 #### [facility] [address] [place], [address] RDW SD 41.0 fl Normal 35.1-43.9 [facility] Comment on above: Performed By: #### L 3100.3425, L3100.5850, L3400.1500 #### [facility] [address] [place], [address] WBC (Bld) [#/Vol] 7.5 10*3/uL Normal 4.4-11.0 [facility] Comment on above: Performed By: #### L 3100.3425, L3100.5850, L3400.1500 #### [facility] [address] [place], [address] Comprehensive Metabolic Prof neon 01-26-2025 Albumin [Mass/Vol] 3.5 g/dL Normal 3.4-4.8 [facility] Comment on above: Performed By: #### L 3100.3425, L3100.5850, L3400.1500 #### [facility] [address] [place], [address] Albumin/Globulin [Mass ratio] 1.5 {ratio} Normal 0.9-2.4 [facility] Comment on above: Performed By: #### L 3100.3425, L3100.5850, L3400.1500 #### [facility] [address] [place], [address] ALK PHOS 133 U/L High 35-104 [facility] Comment on above: Performed By: #### L 3100.3425, L3100.5850, L3400.1500 #### [facility] [address] [place], [address] ALT [Catalytic activity/Vol] 118 U/L High <=34 [facility] Comment on above: Performed By: #### L 3100.3425, L3100.5850, L3400.1500 #### [facility] [address] [place], [address] AST [Catalytic activity/Vol] 47 U/L High <=31 [facility] Comment on above: Performed By: #### L 3100.3425, L3100.5850, L3400.1500 #### [facility] [address] [place], [address] Bilirubin [Mass/Vol] 0.84 mg/dL Normal 0.00-1.30 [facility] Comment on above: Performed By: #### L 3100.3425, L3100.5850, L3400.1500 #### [facility] [address] [place], [address] BUN/CRE 7.9 RATIO Low 10-20 [facility] Comment on above: Performed By: #### L 3100.3425, L3100.5850, L3400.1500 #### [facility] [address] [place], [address] Calcium [Mass/Vol] 9.2 mg/dL Normal 7.6-11.0 [facility] Comment on above: Performed By: #### L 3100.3425, L3100.5850, L3400.1500 #### [facility] Laboratory [address] [place], [address] Chloride [Moles/Vol] 100 mmol/L Normal 98-108 [facility] Comment on above: Performed By: #### L 3100.3425, L3100.5850, L3400.1500 #### [facility] [address] [place], [address] CO2 [Moles/Vol] 31.6 mmol/L Normal 21.0-32.0 [facility] Comment on above: Performed By: #### L 3100.3425, L3100.5850, L3400.1500 #### [facility] [address] [place], [address] Creatinine [Mass/Vol] 1.06 mg/dL Normal 0.70-1.20 [facility] Comment on above: Performed By: #### L 3100.3425, L3100.5850, L3400.1500 #### [facility] [address] [place], [address] ECRCL 57.55 ml/min Normal 50-250 [facility] Comment on above: Performed By: #### L 3100.3425, L3100.5850, L3400.1500 #### [facility] [address] [place], [address] GAP 11 Normal 5-15 [facility] Comment on above: Performed By: #### L 3100.3425, L3100.5850, L3400.1500 #### [facility] [address] [place], [address] GFR/1.73 sq M.predicted among non-blacks MDRD (S/P/Bld) [Vol rate/Area] 58 mL/min/{1.73_m2} Low >60 [facility] Comment on above: Result Comment: mL/m in/1.73m2 CKD-EPI Creatinine Equation (2020) Performed By: #### L 3100.3425, L3100.5850, L3400.1500 #### [facility] [address] [place], [address] Globulin (S) [Mass/Vol] 2.4 g/dL Normal 2.2-4.2 [facility] Comment on above: Performed By: #### L 3100.3425, L3100.5850, L3400.1500 #### [facility] [address] [place], [address] Glucose [Mass/Vol] 110 mg/dL High 70-99 [facility] Comment on above: Performed By: #### L 3100.3425, L3100.5850, L3400.1500 #### [facility] [address] [place], [address] Potassium [Moles/Vol] 3.6 mmol/L Normal 3.3-5.1 [facility] Comment on above: Performed By: #### L 3100.3425, L3100.5850, L3400.1500 #### [facility] [address] [place], [address] Sodium [Moles/Vol] 142 mmol/L Normal 133-145 [facility] Comment on above: Performed By: #### L 3100.3425, L3100.5850, L3400.1500 #### [facility] [address] [place], [address] T PROT 5.9 g/dL Normal 5.9-8.4 [facility] Comment on above: Performed By: #### L 3100.3425, L3100.5850, L3400.1500 #### [facility] [address] [place], [address] Urea nitrogen [Mass/Vol] 8 mg/dL Normal 4-19 [facility] Comment on above: Performed By: #### L 3100.3425, L3100.5850, L3400.1500 #### [facility] [address] [place], [address] MRCP Abdomen without Contras ton 01-26-2025 MRCP Abdomen without Contrast [facility] Imaging Services [address] [place] [address] MRCP Abdomen without Contrast MR#: [id number] Acct: [id number] Name: ARIEL NGUYEN Rep #: [id number] : 1960 F 65 From: Jeronimo Mccracken MD PCP: [employer]ine [employer] PA-C Status: ADM IN Study: MRCP Abdomen without Contrast Date of Exam: Exam# [id number] Ordering Dr: Tomas Marroquin DO PROCEDURE: MRCP ABDOMEN WITHOUT CONTRAST 01/26/2025 REASON FOR EXAM: CHOLESTATIC HEPATITIS TECHNIQUE: MRCP ABDOMEN WITHOUT CONTRAST Multiplanar and multisequence images were obtained. CONTRAST: none COMPARISON: January 19, 2025 CT FINDINGS: There is a 1 cm pleural effusion on the right and left. There is no intrahepatic biliary dilation. The gallbladder, cystic duct, common bile duct, and pancreatic duct are normal. There is no filling defect identified. The liver, spleen, gallbladder, pancreas, adrenals, and kidneys are normal in appearance. There is no renal mass or hydronephrosis. Gas and stool is noted throughout the colon. The small bowel loops are not distended. There is no focal inflammatory change identified in the mesentery. Bone showed normal marrow signal. MRI/MRCP Abdomen without Contrast IMPRESSION: There is a 1 cm pleural effusion on the right and left. Negative MRCP. Reading Location: [facility] CC: CLARITZA Marroquin DO Network Operations Analyst: Signed Normal [facility] Magnesiumon 01-26-2025 Magnesium [Mass/Vol] 2.4 mg/dL High 1.5-2.2 [facility] Comment on above: Performed By: #### L 3100.3425, L3100.5850, L3400.1500 #### [facility] [address] [place], [place], [address] Magnesium measurement (mass/ volume)Ordered By: Cathie Aldana on 01-26-2025 Magnesium (Unsp spec) [Mass/Vol] 2.4 mg/dL High 1.5-2.2 [facility] Magnetic resonance imaging r eportOrdered By: Jeronimo Mccracken on 01-26-2025 Study report [facility] Imaging Services [address] [place], [place] [address] MRCP Abdomen without Contrast MR#: [id number] Acct: [id number] Name: ARIEL NGUYEN Rep #: [id number] : 1960 F 65 From: Jagjit Mccracken MD PCP: [employer] PA-C Status: ADM I N Study:MRCP Abdomen without Contrast Date of E xam: 01/26/25 Exam# [id number] Ordering Dr: Letty Marroquin DO PROCEDURE: MRCP ABDOMEN WITHOUT CONTRAST 01/26/2025 REASON FOR EXAM: CHOLESTATIC HEPATITIS TECHNIQUE: MRCP ABDOMEN WITHOUT CONTRAST Multiplanar and multisequence images were obtained. CONTRAST: none COMPARISON: January 19, 2025 CT FINDINGS: There is a 1 cm pleural effusion on the right and left. There is no intrahepatic biliary dilation. The gallbladder, cystic duct, common bile duct, and pancreatic duct are normal. There is no filling defect identified. The liver, spleen, gallbladder, pancreas, adrenals, and kidneys are normal in appearance. There is no renal mass or hydronephrosis. Gas and stool is noted throughout the colon. The small bowel loops are not distended. There is no focal inflammatory change identified in the mesentery. Bone showed normal marrow signal. MRI/MRCP Abdomen without Contrast IMPRESSION: There is a 1 cm pleural effusion on the right and left. Negative MRCP. Reading Location: [facility] CC: CLARITZA Power; Tomas Friend, DO ~ Network Operations Analyst: Signed [facility] Phosphoruson 01-26-2025 Phosphate [Mass/Vol] 3.9 mg/dL Normal 2.7-4.5 [facility] Comment on above: Performed By: #### L 3100.3425, L3100.5850, L3400.1500 #### [facility] [address] [place], [address] CBC W/Diff, Automatedon 01-01 Absolute Lymph 1.82 X10 3/uL Normal 0.83-4.51 [facility] Comment on above: Performed By: #### L 100.0500, L500.4050 #### [facility] [address] [place], [address] Absolute Neut 4.7 X10 3/uL Normal 2.0-7.7 [facility] Comment on above: Performed By: #### L 100.0500, L500.4050 #### [facility] [address] [place], [address] Basophils/100 WBC (Bld) 0.9 % Normal 0-1 [facility] Comment on above: Performed By: #### L 100.0500, L500.4050 #### [facility] [address] [place], [address] Eosinophils/100 WBC (Bld) 3.3 % Normal 0-5 [facility] Comment on above: Performed By: #### L 100.0500, L500.4050 #### [facility] [address] [place], [address] Erythrocyte distribution width (RBC) [Ratio] 13.2 % Normal 11.6-14.6 [facility] Comment on above: Performed By: #### L 100.0500, L500.4050 #### [facility] [address] [place], [address] Hematocrit (Bld) [Volume fraction] 33.5 % Low 37-47 [facility] Comment on above: Performed By: #### L 100.0500, L500.4050 #### [facility] [address] [place], [address] Hemoglobin (Bld) [Mass/Vol] 12.0 g/dL Normal 12.0-15.0 [facility] Comment on above: Performed By: #### L 100.0500, L500.4050 #### [facility] [address] [place], [address] IG% 0.400 Normal 0.0-0.9 [facility] Comment on above: Result Comment: IG% - Immature Granulocytes (promyelocytes, myelocytes and metamyelocytes) > 1% indicates that a LEFT SHIFT is Present. Performed By: #### L 100.0500, L500.4050 #### [facility] [address] [place], [address] Lymphocytes/100 WBC (Bld) 24.0 % Normal 19-41 [facility] Comment on above: Performed By: #### L 100.0500, L500.4050 #### [facility] [address] [place], [address] MCH (RBC) [Entitic mass] 29.9 pg Normal 27.0-32.0 [facility] Comment on above: Performed By: #### L 100.0500, L500.4050 #### [facility] [address] [place], [address] MCHC (RBC) [Mass/Vol] 35.8 g/dL Normal 32-36 [facility] Comment on above: Performed By: #### L 100.0500, L500.4050 #### [facility] [address] [place], [address] MCV (RBC) [Entitic vol] 83.3 fL Normal 81-99 [facility] Comment on above: Performed By: #### L 100.0500, L500.4050 #### [facility] [address] [place], [address] Monocytes/100 WBC (Bld) 9.5 % Normal 0-10 [facility] Comment on above: Performed By: #### L 100.0500, L500.4050 #### [facility] [address] [place], [address] Neutrophils/100 WBC (Bld) 61.9 % Normal 47-70 [facility] Comment on above: Performed By: #### L 100.0500, L500.4050 #### [facility] [address] [place], [address] Nucleated RBC (Bld) [#/Vol] 0 10*3/uL Normal 0-5 [facility] Comment on above: Performed By: #### L 100.0500, L500.4050 #### [facility] [address] [place], [address] Platelet mean volume (Bld) [Entitic vol] 9.8 fL Normal 6.2-12.0 [facility] Comment on above: Performed By: #### L 100.0500, L500.4050 #### [facility] [address] [place], [address] Platelets (Bld) [#/Vol] 182 10*3/uL Normal 150-450 [facility] Comment on above: Performed By: #### L 100.0500, L500.4050 #### [facility] [address] [place], [address] RBC (Bld) [#/Vol] 4.02 10*6/uL Low 4.2-5.4 [facility] Comment on above: Performed By: #### L 100.0500, L500.4050 #### [facility] [address] [place], [address] RDW SD 40.0 fl Normal 35.1-43.9 [facility] Comment on above: Performed By: #### L 100.0500, L500.4050 #### [facility] [address] [place], [address] WBC (Bld) [#/Vol] 7.6 10*3/uL Normal 4.4-11.0 [facility] Comment on above: Performed By: #### L 100.0500, L500.4050 #### [facility] [address] [place], [address] CRPon 01-25-2025 C-REACTIVE PROT 28.20 mg/L High 0.0-3.0 [facility] Comment on above: Performed By: #### L 3100.3425, L3100.5850, L3400.1500 #### [facility] [address] [place], [address] CTA Chest W/WO Contraston CTA Chest W/WO Contrast [facility] Imaging Services [address] [place] [address] CTA Chest W/WO Contrast MR#: [id number] Acct: [id number] Name: ARIEL NGUYEN Rep #: [id number] : 1960 F 65 From: Jeronimo Mccracken MD PCP: [employer] PA-C Status: ADM IN Study: CTA Chest W/WO Contrast Date of Exam: 01/25/25 Exam# [id number] Ordering Dr: Cathie Aldana DO PROCEDURE: CTA CHEST W/WO CONTRAST 01/25/2025 REASON FOR EXAM: HYPOXIA TECHNIQUE: CTA CHEST W/WO CONTRAST Multiplanar Sagittal and Coronal images were obtained. CONTRAST: 100 cc Isovue 370 One or more dose reduction techniques were used (e.g., Automated exposure control, adjustment of the mA and/or kV according to patient size, use of iterative reconstruction technique). RADIATION DOSE SUMMARY: DLP: 459 mGycm COMPARISON: None FINDINGS: Hardware: Sternotomy wires are noted Lymph nodes: There is AP window adenopathy with the largest node measuring 2.3 x 1.7 cm, image 175/250. There is an enlarged precarinal lymph node measuring 1.6 X 1.3 cm, image 166/250. There is heterogeneous increased density in the anterior mediastinum, which may be postsurgical. Heart: Atherosclerotic calcifications are noted. RV/LV Diameter Ratio: 0.8 Thoracic Aorta: Within normal limits Pulmonary Vessels: Main pulmonary artery Hounsfield units = 534. There is no visible pulmonary embolus. Lungs and Airways: There is patchy infiltrate in the right upper lung and left upper lung, with atelectasis or scar in the left lingular segment and right middle lobe. Pleura: There is a 1.8 cm pleural effusion on the right and left. Upper Abdomen: Unremarkable Bones: Sternotomy wires are noted. CT/CTA Chest W/WO Contrast IMPRESSION: There is AP window adenopathy with the largest node measuring 2.3 x 1.7 cm, image 175/250. There is an enlarged precarinal lymph node measuring 1.6 X 1.3 cm, image 166/250. There is heterogeneous increased density in the anterior mediastinum, which may be postsurgical. There is a 1.8 cm pleural effusion on the right and left. There is patchy infiltrate in the right upper lung and left upper lung, with atelectasis or scar in the left lingular segment and right middle lobe. There is no visible pulmonary embolus. Reading Location: [facility] CC: CLARITZA Power; Dr. Cathie Aldana DO Network Operations Analyst: Signed Normal [facility] Comprehensive Metabolic Prof ilon 01-25-2025 Urea nitrogen [Mass/Vol] 5 mg/dL Normal 4-19 [facility] Comment on above: Performed By: #### L 100.0500, L500.4050 #### [facility] [address] [place], [address] Echo Completeon 01-25-2025 Echo Complete [facility] Cardiovascular Services [address] [place] [address] Echo Complete 01/25/25 1515 MR#: [id number] Acct: [id number] Name: ARIEL NGUYEN Rep #: [id number] : 1960 65 From: Rozina Ochoa MD Attending Dr: Dr. Cathie Aldana, Status: ADM I N Ordering Dr: Cathie Aldana DO Date: 01/25/25 Location: [facility] Sex: F C Admitted: 01/19/25 Reason For Study Reason For Study: CHF Procedure This was a 2D Doppler, Color Flow transthoracic echocardiogram. Exam performed portable in patient room. Left Ventricle Normal left ventricle. The estimated ejection fraction is 60???65 %. Right Ventricle Normal right ventricle. Normal systolic function. Atria The left atrium is moderately enlarged. Normal right atrium. Mitral Valve There is moderate to severe mitral annular calcification. Heavily calcified posterior mitral annulus. Moderately severe (3+) eccentric mitral valve insufficiency. Tricuspid Valve Normal tricuspid valve. Mild tricuspid valve insufficiency. Aortic Valve Aortic valve area 0.98 cm squire . Moderate to severe aortic stenosis. Peak aortic valve gradient 50.9 mmHg. Mean aortic valve gradient 32.3 mmHg. Mild-Moderate (1-2+) aortic valve insufficiency. Pulmonic Valve Mild pulmonary regurgitation. Great Vessels The aortic root is not well visualized. Pericardium/Pleural No pericardial effusion. MMode/2D Measurements Calculations LVIDd: 4.3 cm IVSd: 1.3 cm LVOT diam: 2.0 cm LVIDs: 2.9 cm LVPWd: 1.4 cm LVOT area: 3.2 cm2 RVDd: 3.9 cm FS: 32.5 % CO(Teich): 2.7 l/min Ao root diam: 3.4 cm LAV(MOD-bp): 81.0 ml LAV(MOD-bp) Indexed: 42.1 ml/m2 LAV(MOD-sp2): 86.8 ml LAV(MOD-sp4): 73.0 ml CO(MOD-sp4): 2.7 l/min SV(sp4-el): 54.4 ml LVAd ap4: 25.4 cm2 SV(MOD-sp4): 50.1 ml LVLd ap4: 7.0 cm EDV(MOD-sp4): 74.2 ml SI(MOD-sp4): 26.0 ml/m2 EDV(sp4-el): 77.8 ml LVAs ap4: 12.3 cm2 LVLs ap4: 5.5 cm ESV(MOD-sp4): 24.0 ml ESV(sp4-el): 23.3 ml EF(MOD-sp4): 67.6 % EF(sp4-el): 70.0 % Aortic Valve Planimetry: 1.2 cm2 LA A4 area: 24.6 cm2 LA dimension(2D): 4.2 cm TAPSE: 2.1 cm RA A4 area: 17.7 cm2 Time Measurements MV dec time: 0.38 sec Doppler Measurements Calculations MV E max presley: 158.7 cm/sec Lat Peak E' Presley: 3.9 cm/sec Med Peak E' Presley: 3.9 cm/sec MV A max presley: 90.9 cm/sec E/E' lat: 40.3 E/E' med: 40.3 MV E/A: 1.7 MV V2 max: 212.8 cm/sec MV dec slope: 419.3 cm/sec2 Ao V2 max: 356.3 cm/sec MV max P.1 mmHg Ao max P.9 mmHg MV V2 mean: 93.6 cm/sec Ao V2 mean: 272.8 cm/sec MV mean P.5 mmHg Ao mean P.3 mmHg MV V2 VTI: 69.0 cm Ao V2 VTI: 85.1 cm MVA(VTI): 0.95 cm2 AV (velocity ratio): 0.24 PEDRO LUIS(I,D): 0.77 cm2 PEDRO LUIS(V,D): 0.98 cm2 AI max presley: 483.3 cm/sec LV V1 max: 110.6 cm/sec CO(LVOT): 3.6 l/min AI max P.5 mmHg LV V1 max P.9 mmHg SV(LVOT): 65.2 ml LV V1 mean P.2 mmHg AI dec slope: 258.7 cm/sec2 LV V1 mean: 86.4 cm/sec AI P1/2t: 547.1 msec LV V1 VTI: 20.6 cm PA V2 max: 92.2 cm/sec TR max presley: 302.7 cm/sec TR max P.8 mmHg ECHO/Echo Complete Interpretation Summary The estimated ejection fraction is 60???65 %. Normal LV systolic function Heavily calcified posterior mitral annulus Aortic valve area 0.98 cm squire . Peak aortic valve gradient 50.9 mmHg. Mean aortic valve gradient 32.3 mmHg. Mild pulmonary regurgitation No previous echo to compare Ordering Physician: Cathie Aldana Referring Physician: Sabine Power Performed By: Aicha García, CINTHYA, RVT 01/25/25 1633 Date Rozina Ochoa MD CC: CLARITZA Power; Dr. Cathie Aldana DO Date Dictated: 01/25/251514 Date Transcribed: 01/25/25 1633 Network Operations Analyst: Signed Normal [facility] Echocardiogram study reportO rdered By: Rozina Ochoa on 01-25-2025 Study report [facility] Cardiovascular Services [place] [address] Echo Complete 01/25/251514 MR#: [id number] Acct: [id number] Name: ARIEL NGUYEN Rep #:[id number] : 1960 65 From: Rozina Ochoa MD Attending Dr: Dr. Cathie Aldana DO S tatus: ADM IN Ordering Dr: Cathie Aldana DO Date: Location: [facility] Sex: F C Admitted: 01/19/25 Reason For Study Reason For Study: CHF Procedure This was a 2D Doppler, Color Flow transthoracic echocardiogram. Exam performed portable in patient room. Left Ventricle Normal left ventricle. The estimated ejection fraction is 60???65 %. Right Ventricle Normal right ventricle. Normal systolic function. Atria The left atrium is moderately enlarged. Normal right atrium. Mitral Valve There is moderate to severe mitral annular calcification. Heavily calcified posterior mitral annulus. Moderately severe (3+) eccentric mitral valve insufficiency. Tricuspid Valve Normal tricuspid valve. Mild tricuspid valve insufficiency. Aortic Valve Aortic valve area 0.98 cm squire . Moderate to severe aortic stenosis. Peak aortic valve gradient 50.9 mmHg. Mean aortic valve gradient 32.3 mmHg. Mild-Moderate (1-2+) aortic valve insufficiency. Pulmonic Valve Mild pulmonary regurgitation. Great Vessels The aortic root is not well visualized. Pericardium/Pleural No pericardial effusion. MMode/2D Measurements & Calculations LVIDd: 4.3 cm IVSd: 1.3 cm LVOT diam: 2.0 cm LVIDs: 2.9 cm LVPWd: 1.4 cm LVOT area: 3.2 cm2 RVDd: 3.9 cm FS: 32.5 % CO(Teich): 2.7 l/min Ao root diam: 3.4 cm LAV(MOD-bp): 81.0 ml LAV(MOD-bp) Indexed: 42.1 ml/m2 LAV(MOD-sp2): 86.8 ml LAV(MOD-sp4): 73.0 ml CO(MOD-sp4): 2.7 l/min SV(sp4-el): 54.4 ml LVAd ap4: 25.4 cm2 SV(MOD-sp4): 50.1 ml LVLd ap4: 7.0 cm EDV(MOD-sp4): 74.2 ml SI(MOD-sp4): 26.0 ml/m2 EDV(sp4-el): 77.8 ml LVAs ap4: 12.3 cm2 LVLs ap4: 5.5 cm ESV(MOD-sp4): 24.0 ml ESV(sp4-el): 23.3 ml EF(MOD-sp4): 67.6 % EF(sp4-el): 70.0 % Aortic Valve Planimetry: 1.2 cm2 LA A4 area: 24.6 cm2 LA dimension(2D): 4.2 cm TAPSE: 2.1 cm RA A4 area: 17.7 cm2 Time Measurements MV dec time: 0.38 sec Doppler Measurements & Calculations MV E max presley: 158.7 cm/sec Lat Peak E' Presley: 3.9 cm/sec Med Peak E' Presley: 3.9 cm/sec MV A max presley: 90.9 cm/sec E/E' lat: 40.3 E/E' med: 40.3 MV E/A: 1.7 MV V2 max: 212.8 cm/sec MV dec slope: 419.3 cm/sec2 Ao V2 max: 356.3 cm/sec MV max P.1 mmHg Ao max P.9 mmHg MV V2 mean: 93.6 cm/sec Ao V2 mean: 272.8 cm/sec MV mean P.5 mmHg Ao mean P.3 mmHg MV V2 VTI: 69.0 cm Ao V2 VTI: 85.1 cm MVA(VTI): 0.95 cm2 AV (velocity ratio): 0.24 PEDRO LUIS(I,D): 0.77 cm2 PEDRO LUIS(V,D): 0.98 cm2 AI max presley: 483.3 cm/sec LV V1 max: 110.6 cm/sec CO(LVOT): 3.6 l/min AI max P.5 mmHg LV V1 max P.9 mmHg SV(LVOT): 65.2 ml LV V1 mean P.2 mmHg AI dec slope: 258.7 cm/sec2 LV V1 mean: 86.4 cm/sec AI P1/2t: 547.1 msec LV V1 VTI: 20.6 cm PA V2 max: 92.2 cm/sec TR max presley: 302.7 cm/sec TR max P.8 mmHg ECHO/Echo Complete Interpretation Summary The estimated ejection fraction is 60???65 %. Normal LV systolic function Heavily calcified posterior mitral annulus Aortic valve area 0.98 cm squire . Peak aortic valve gradient 50.9 mmHg. Mean aortic valve gradient 32.3 mmHg. Mild pulmonary regurgitation No previous echo to compare Ordering Physician: Cathie Aldana Referring Physician: Sabine Power Performed By: Aicha García, CINTHYA, RVT 01/25/25 6913 Date _ Rozina Ochoa MD CC: CLARITZA Power; Dr. Cathie Aldana DO ~ Date Dictated: 01/25/25 1515 Date Transcribed: 01/25/25 1633 Network Operations Analyst: Signed [facility] Work Phone: Electrocardiogram reportOrde red By: Manuel Cantu on 01-25-2025 EKG study [facility] Cardiovascular Services [address] [place] [address] 12 Lead EKG 01/23/25 0904 MR#: [id number] Acct: [id number] Name: ARIEL NGUYEN Rep #:[id number] : 1960 65 From: Manuel Cantu MD Attending Dr: Dr. Franky Sy DO Status: ADM IN Ordering Dr: Franky Sy DO Date: 01/22/25 Location: [facility] Sex: F C Admitted: 01/19/25 Test Reason : AF Blood Pressure : */* mmHG Vent. Rate : 59 BPM Atrial Rate : 59 BPM P-R Int : 152 ms QRS Dur : 98 ms QT Int : 422 ms P-R-T Axes : 62 -20 197 degrees QTcB Int : 417 ms Sinus bradycardia with marked sinus arrhythmia Nonspecific ST and T wave abnormality Abnormal ECG When compared with ECG of 22-Jan-2025 15:52, MANUAL COMPARISON REQUIRED DATA IS UNCONFIRMED Confirmed by CAM HICKMAN, MANUEL ([id number]), editor book OSVALDO ESTRADA ([id number]) on 56:09:36 AM Referred By: Confirmed By: MANUEL CANTU MD 01/25/25 0609 Date _ Manuel Cantu MD CC: CLARITZA Power; Dr. Franky Sy DO ~ Signed [facility] Other Phone: EKG study [facility] Cardiovascular Services [address] [place] [address] 12 Lead EKG 01/22/25 1552 MR#: [id number] Acct: [id number] Name: ARIEL NGUYEN Rep #:[id number] : 1960 65 From: Manuel Cantu MD Attending Dr: Dr. Franky Sy DO Status: ADM IN Ordering Dr: Franky Sy DO Date: 01/23/25 Location: [facility] Sex: F C Admitted: 01/19/25 Test Reason : Blood Pressure : */* mmHG Vent. Rate : 170 BPM Atrial Rate : * BPM P-R Int : * ms QRS Dur : 96 ms QT Int : 300 ms P-R-T Axes : * -15 164 degrees QTcB Int : 504 ms Critical Test Result: High HR Atrial fibrillation with rapid ventricular response ST & T wave abnormality, consider inferolateral ischemia Abnormal ECG When compared with ECG of 19-Jan-2025 08:54, Atrial fibrillation has replaced Sinus rhythm Vent. rate has increased by 98 bpm T wave inversion now evident in Lateral leads Confirmed by CAM HICKMAN, MANUEL ([id number]), editor book OSVALDO ESTRADA ([id number]) on 56:09:49 AM Referred By: Confirmed By: MANUEL CANTU MD 01/25/25 0609 Date _ Manuel Cantu MD CC: CLARITZA Power; Dr. Franky Sy DO ~ Signed [facility] Other Phone: Erythrocyte Sed Rateon 01-25 SED RATE 13 mm/hr Normal 0-30 [facility] Comment on above: Performed By: #### L 3100.3425, L3100.5850, L3400.1500 #### [facility] Laboratory [address] [place], [place], [id number] Erythrocyte sedimentation ra teOrdered By: Tomas Friend on 01-25-2025 ESR (Bld) [Velocity] 13 mm/h 0-30 [facility] Ferritinon 01-25-2025 Ferritin [Mass/Vol] 262 ng/mL Normal 22-378 [facility] Comment on above: Performed By: #### L 31003425, L3100.5850, L3400.1500 #### [facility] Laboratory [address] [place], [address] MR/CON.PCM.GIon 01-25-2025 MR/CON.PCM.GI [facility] Medical Records Department [address] [place] [address] Consultation - GI 01/25/25 1803 MR#: [id number] Acct: [id number] Name: ARIEL NGUYEN Rep #: [id number] : 1960 65 From: Tomas Marroquin DO PCP: [employer] PA-C Status:ADM IN [id number] Consult Data Date of Consult: 01/25/25 HPI Narrative Reason for Consultation: Intractable nausea and vomiting HPI Narrative: ARIEL NGUYEN, is a 65-year-old female patient with a history of chronic cannabis use, previously diagnosed with cannabinoid hyperemesis syndrome (CHS) and cannabis-induced gastroparesis, presents to the emergency department with a 2-day history of intractable nausea and vomiting. The vomiting is cyclic, occurring multiple times per hour, and contains bilious material after initial emptying of stomach contents. The patient reports associated epigastric and diffuse abdominal pain. Nausea and vomiting symptoms were transiently relieved by taking long, hot showers, but returned shortly after. The patient reports poor oral intake and significant weight loss over the last several weeks due to fear of vomiting. She admits to daily cannabis use (frequency and amount specified if known, e.g., smoking x amount daily for several years). The patient denies fever, chills, diarrhea, or hematemesis. Standard antiemetics tried at home (e.g., ondansetron) were ineffective, consistent with prior episodes. The patient has been unable to quit cannabis despite prior counseling. She has a past Medical History: Significant cardiovascular disease including recent non-ST segment elevation OK status post three-vessel CABG on Plavix. She also has a history of a murmur secondary to a calcified mitral valve. She was previously diagnosed with gastroparesis from unknown cause. 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 She has been getting metoclopramide, Phenergan suppositories, Compazine, Zofran and she has a scopolamine patch along with oral Valium. She gets better with hot showers. Yesterday she was able to eat. However today she has not been able to tolerate liquids or solids. Imaging:??? * CT/Abdomen/Pelvis without Cont IMPRESSION: Sludge or tiny gallstones within the gallbladder lumen. Correlation with ultrasound recommended. Punctate calcifications in the body of the pancreas. Status post hysterectomy. Sigmoid diverticulosis. * Ultrasound of the right upper quadrant FINDINGS: Liver: Grossly normal size and echotexture. Gallbladder: Sludge is seen within the gallbladder lumen. The gallbladder wall is not thickened. Common bile duct: Normal measuring 6.1 mm . Pancreas: Normal Echocardiogram 01/25/25 09:43 Interpretation Summary The estimated ejection fraction is 60???65 %. Normal LV systolic function Heavily calcified posterior mitral annulus Aortic valve area 0.98 cm squire . Peak aortic valve gradient 50.9 mmHg. Mean aortic valve gradient 32.3 mmHg. Mild pulmonary regurgitation No previous echo to compare Labs 01/25/25 08:16: Total Bilirubin 0.71, AST 138 H, ALT 189 H, Alkaline Phosphatase 150 H, NT pro BNP II 4115 H, Total Protein 6.0, Albumin 3.8, Globulin 2.2, PFSH Medical History Right shoulder pain Home Medications ???Medication ???Instructions ???Recorded ???Last Taken ???Type levothyroxine 88 mcg capsule 88 mcg PO DAILY 10/07/23 Unknown H istory losartan 25 mg tablet 50 mg PO DAILY 10/07/23 Unknown Hi story alprazolam 0.25 mg tablet 0.25 mg PO DAILY PRN anxiety 01/19 Unknown History atorvastatin 80 mg tablet 80 mg PO QHS 01/19/25 Unknown Hist ory clopidogrel 75 mg tablet 75 mg PO DAILY 01/19/25 Unknown Hi story desvenlafaxine succinate 50 mg 50 mg PO DAILY 01/19/25 Unknown Hi story tablet,extended release 24 hr furosemide 20 mg tablet 20 mg PO DAILY 01/19/25 Unknown Hi story hydroxyzine HCl 25 mg tablet 50 mg PO BID 01/19/25 Unknown Hist ory metoprolol tartrate 25 mg tablet 25 mg PO DAILY 01/19/25 Unknown Hi story oxcarbazepine 150 mg tablet 150 mg PO BID 01/19/25 Unknown His tory pantoprazole 40 mg tablet,delayed 40 mg PO DAILY 01/19/25 Unknown H istory release quetiapine 25 mg tablet 25 - 50 mg PO QHS PRN PRN insomnia 01/19/25 Unknown History Allergy/AdvReac Type Severity Reaction Status Date / Time clindamycin AdvReac Other Verified 01/19/25 08:21 Penicillins AdvReac Other Verified 01/19/25 08:21 Sulfa (Sulfonamide AdvReac Other Verified 01/19/25 08:21 Antibiotics) Family History Father Hypertension CVA (cerebral vascular accident) Myocardial infarction Arthritis Mother Arthritis Cance (more content not included)... Normal [facility] Magnesiumon 01-25-2025 Magnesium [Mass/Vol] 2.2 mg/dL Normal 1.5-2.2 [facility] Comment on above: Performed By: #### L 100.0500, L500.4050 #### [facility] [address] [place], [address] Natriuretic peptide.B prohor devin N-Terminal [Mass/volume] in Serum or PlasmaOrdered By: Cathie Aldana on 01-25-2025 Natriuretic peptide.B prohormone N-Terminal [Mass/Vol] 4115 pg/mL High <900 [facility] Comment on above: Heart Failure Unlike ly: < 300 pg/mLHeart Failure Likely< 50 Years: > 450 pg/mL50-75 Years: > 900 pg/mL>75 Years: > 1800 pg/mL No Panel InformationOrdered By: Tomas Marroquin on 01-25-2025 Hepatitis C Antibody Comment Comment . [facility] Comment on above: Not infected with HC V unless early or acute infection issuspected (which may be delayed in an immunocompromisedindividual), or other evidence exists to indicate HCVinfection. Tissue Transglutaminase IgG Ab <2 U/mL 0-5 [facility] Comment on above: Negative 0 - 5 Weak Positive 6 - 9 Positive >9 Phosphoruson 01-25-2025 Phosphate [Mass/Vol] 2.9 mg/dL Normal 2.7-4.5 [facility] Comment on above: Performed By: #### L 100.0500, L500.4050 #### [facility] [address] [facility]. [place], [place], [id number] Pro- Brain NATRIURETIC PEPTI Silvio 01-25-2025 Natriuretic peptide B (Bld) [Mass/Vol] 4115 pg/mL High <=900 [facility] Comment on above: Result Comment: Hear t Failure Unlikely: < 300 pg/mL Heart Failure Likely < 50 Years: > 450 pg/mL 50-75 Years: > 900 pg/mL >75 Years: > 1800 pg/mL Performed By: #### L 501.4027 #### [facility] [address] [place], [address] Serum mitochondria antibody detectionOrdered By: Tomas Marroquin on 01-25-2025 Mitochondria Ab Ql (S) <20.0 Units 0.0-20.0 [facility] Comment on above: Negative 0.0 - 20.0 Equivocal 20.1 - 24.9 Positive >24.9Mitochondrial (M2) Antibodies are found in 90-96% ofpatients with primary biliary cirrhosis.Performed at: [facility] [address] [id number] Director: Lul Parish PhD, Phone: [phone] Serum or plasma C reactive p rotein measurement (mass/volume)Ordered By: Tomas Marroquin on 01-25-2025 CRP [Mass/Vol] 28.20 mg/L High 0.0-3.0 [facility] Serum or plasma actin IgG an tibody assay (units/volume)Ordered By: Tomas Marroquin on 01-25-2025 Actin IgG Qn 8 Units 0-19 [facility] Comment on above: Negative 0 - 19 Weak positive 20 - 30 Moderate to strong positive >30 Actin Antibodies are found in 52-85% of patients with autoimmune hepatitis or chronic active hepatitis and in 22% of patients with primary biliary cirrhosis.Performed at: [facility] [place] [id number] Director: Lul Parish PhD, Phone: [phone] Serum or plasma ferritin crispin surement (mass/volume)Ordered By: Tomastin Marroquin on 01-25-2025 Ferritin [Mass/Vol] 262 ng/mL 22-378 [facility] Serum or plasma hepatitis B virus surface antigen detection by immunoassayOrdered By: Tomas Marroquin on 01-25-2025 HBV surface Ag IA Ql Negative Negative [facility] Serum tissue transglutaminas e (tTG) IgA antibody assay (units/volume)Ordered By: Tomas Marroquin on 01-25-2025 tTG IgA Qn (S) <2 U/mL 0-3 [facility] Comment on above: Negative 0 - 3 Weak Positive 4 - 10 Positive >10 Tissue Transglutaminase (tTG) has been identified as the endomysial antigen. Studies have demonstr- ated that endomysial IgA antibodies have over 99% specificity for gluten sensitive enteropathy. TSH DL <= 0.005 mIU/L QnOrde red By: Tomas Marroquin on 01-25-2025 TSH Qn 1.780 uIU/mL 0.300-4.200 [facility] Thyroid Stim Hormone (TSH)on 01-25-2025 TSH 1.780 uIU/mL Normal 0.300-4.200 [facility] Comment on above: Performed By: #### L 3100.3425, L3100.5850, L3400.1500 #### [facility] [address] [facility], [address] 12 Lead EKGon 01-23-2025 12 Lead EKG [facility] Cardiovascular Services [address] [place] [address] 12 Lead EKG 01/22/25 1552 MR#: [id number] Acct: [id number] Name: ARIEL NGUYEN Rep #: [id number] : 1960 65 From: Manuel Cantu MD Attending Dr: Dr. Franky Sy DO Status: A DM IN Ordering Dr: Franky Sy DO Date: 01/23/25 Location: U Sex: F C Admitted: 01/19/25 Test Reason : Blood Pressure : */* mmHG Vent. Rate : 170 BPM Atrial Rate : * BPM P-R Int : * ms QRS Dur : 96 ms QT Int : 300 ms P-R-T Axes : * -15 164 degrees QTcB Int : 504 ms Critical Test Result: High HR Atrial fibrillation with rapid ventricular response ST T wave abnormality, consider inferolateral ischemia Abnormal ECG When compared with ECG of 19-Jan-2025 08:54, Atrial fibrillation has replaced Sinus rhythm Vent. rate has increased by 98 bpm T wave inversion now evident in Lateral leads Confirmed by MANUEL CANTU MD ([id number]), editor book OSVALDO ESTRADA ([id number]) on 01/25/2025 6:09:49 AM Referred By: Confirmed By: MANUEL CANTU MD 01/25/25 0609 Date Manuel Cantu MD CC: CLARITZA Power; Dr. Franky Sy DO Signed Normal [facility] 12 Lead EKGon 01-22-2025 12 Lead EKG [facility] Cardiovascular Services [address] [place] [address] 12 Lead EKG 01/23/25 0904 MR#: [id number] Acct: [id number] Name: ARIEL NGUYEN Rep #: [id number] : 1960 65 From: Manuel Cantu MD Attending Dr: Dr. Franky Sy DO Status: A DM IN Ordering Dr: Franky Sy DO Date: 01/22/25 Location: [facility] Sex: F C Admitted: 01/19/25 Test Reason : AF Blood Pressure : */* mmHG Vent. Rate : 59 BPM Atrial Rate : 59 BPM P-R Int : 152 ms QRS Dur : 98 ms QT Int : 422 ms P-R-T Axes : 62 -20 197 degrees QTcB Int : 417 ms Sinus bradycardia with marked sinus arrhythmia Nonspecific ST and T wave abnormality Abnormal ECG When compared with ECG of 22-Jan-2025 15:52, MANUAL COMPARISON REQUIRED DATA IS UNCONFIRMED Confirmed by MANUEL CANTU MD ([id number]), editor book OSVALDO ESTRADA ([id number]) on 01/25/2025 6:09:36 AM Referred By: Confirmed By: MANUEL CANTU MD 01/25/25 0609 Date Manuel Cantu MD CC: CLARITZA Power; Dr. Franky Sy, DO Signed Normal [facility] Activated partial thrombopla stin time (aPTT) in platelet poor plasma by coagulation aOrdered By: Volodymyr Scruggs on 01-22-2025 aPTT Coag (PPP) [Time] 25.5 s 24.1-36.2 [facility] CBC W/Diff, Automatedon 01-01 Absolute Lymph 2.29 X10 3/uL Normal 0.83-4.51 [facility] Comment on above: Order Comment: Comme nts: If not done in prior 24 hours Performed By: #### L 100.0500, L500.4050 #### [facility] [address] [place], [address] Absolute Neut 5.5 X10 3/uL Normal 2.0-7.7 [facility] Comment on above: Order Comment: Comme nts: If not done in prior 24 hours Performed By: #### L 100.0500, L500.4050 #### [facility] [address] [place], [address] Basophils/100 WBC (Bld) 0.7 % Normal 0-1 [facility] Comment on above: Order Comment: Comme nts: If not done in prior 24 hours Performed By: #### L 100.0500, L500.4050 #### [facility] [address] [place], [address] Eosinophils/100 WBC (Bld) 2.5 % Normal 0-5 [facility] Comment on above: Order Comment: Comme nts: If not done in prior 24 hours Performed By: #### L 100.0500, L500.4050 #### [facility] [address] [place], [address] Erythrocyte distribution width (RBC) [Ratio] 13.2 % Normal 11.6-14.6 [facility] Comment on above: Order Comment: Comme nts: If not done in prior 24 hours Performed By: #### L 100.0500, L500.4050 #### [facility] [address] [place], [address] Hematocrit (Bld) [Volume fraction] 34.6 % Low 37-47 [facility] Comment on above: Order Comment: Comme nts: If not done in prior 24 hours Performed By: #### L 100.0500, L500.4050 #### [facility] [address] [place], [address] Hemoglobin (Bld) [Mass/Vol] 12.7 g/dL Normal 12.0-15.0 [facility] Comment on above: Order Comment: Comme nts: If not done in prior 24 hours Performed By: #### L 100.0500, L500.4050 #### [facility] [address] [place], [address] IG% 0.500 Normal 0.0-0.9 [facility] Comment on above: Order Comment: Comme nts: If not done in prior 24 hours Result Comment: IG% - Immature Granulocytes (promyelocytes, myelocytes and metamyelocytes) > 1% indicates that a LEFT SHIFT is Present. Performed By: #### L 100.0500, L500.4050 #### [facility] [address] [place], [address] Lymphocytes/100 WBC (Bld) 26.0 % Normal 19-41 [facility] Comment on above: Order Comment: Comme nts: If not done in prior 24 hours Performed By: #### L 100.0500, L500.4050 #### [facility] [address] [place], [address] MCH (RBC) [Entitic mass] 30.0 pg Normal 27.0-32.0 [facility] Comment on above: Order Comment: Comme nts: If not done in prior 24 hours Performed By: #### L 100.0500, L500.4050 #### [facility] [address] [place], [address] MCHC (RBC) [Mass/Vol] 36.7 g/dL High 32-36 [facility] Comment on above: Order Comment: Comme nts: If not done in prior 24 hours Performed By: #### L 100.0500, L500.4050 #### [facility] [address] [place], [address] MCV (RBC) [Entitic vol] 81.8 fL Normal 81-99 [facility] Comment on above: Order Comment: Comme nts: If not done in prior 24 hours Performed By: #### L 100.0500, L500.4050 #### [facility] [address] [place], [address] Monocytes/100 WBC (Bld) 8.2 % Normal 0-10 [facility] Comment on above: Order Comment: Comme nts: If not done in prior 24 hours Performed By: #### L 100.0500, L500.4050 #### [facility] [address] [place], [address] Neutrophils/100 WBC (Bld) 62.1 % Normal 47-70 [facility] Comment on above: Order Comment: Comme nts: If not done in prior 24 hours Performed By: #### L 100.0500, L500.4050 #### [facility] [address] [place], [address] Nucleated RBC (Bld) [#/Vol] 0 10*3/uL Normal 0-5 [facility] Comment on above: Order Comment: Comme nts: If not done in prior 24 hours Performed By: #### L 100.0500, L500.4050 #### [facility] [address] [place], [address] Platelet mean volume (Bld) [Entitic vol] 9.8 fL Normal 6.2-12.0 [facility] Comment on above: Order Comment: Comme nts: If not done in prior 24 hours Performed By: #### L 100.0500, L500.4050 #### [facility] [address] [place], [address] Platelets (Bld) [#/Vol] 236 10*3/uL Normal 150-450 [facility] Comment on above: Order Comment: Comme nts: If not done in prior 24 hours Performed By: #### L 100.0500, L500.4050 #### [facility] [address] [place], [address] RBC (Bld) [#/Vol] 4.23 10*6/uL Normal 4.2-5.4 [facility] Comment on above: Order Comment: Comme nts: If not done in prior 24 hours Performed By: #### L 100.0500, L500.4050 #### [facility] [address] [place], [address] RDW SD 39.0 fl Normal 35.1-43.9 [facility] Comment on above: Order Comment: Comme nts: If not done in prior 24 hours Performed By: #### L 100.0500, L500.4050 #### [facility] [address] [place], [address] WBC (Bld) [#/Vol] 8.8 10*3/uL Normal 4.4-11.0 [facility] Comment on above: Order Comment: Comme nts: If not done in prior 24 hours Performed By: #### L 100.0500, L500.4050 #### [facility] [address] [place], [address] International normalized rat io (INR) calculationOrdered By: Volodymyr Scruggs on 01-22-2025 INR Coag (Bld) [Relative time] 1.0 {INR} [facility] Partial Thromboplast Timeon 01-22-2025 aPTT Coag (Bld) [Time] 25.5 s Normal 24.1-36.2 [facility] Comment on above: Order Comment: Comme nts: If not done in prior 24 hours Performed By: #### L 501.4021 #### [facility] [address] [place], [address] Prothrombin Time w/INRon INR Coag (PPP) [Relative time] 1.0 {INR} Normal [facility] Comment on above: Order Comment: Comme nts: If not done in prior 24 hours Performed By: #### L 100.0500, L500.4050 #### [facility] [address] [place], [address] PT Coag (PPP) [Time] 13.8 s Normal 11.7-14.9 [facility] Comment on above: Order Comment: Comme nts: If not done in prior 24 hours Performed By: #### L 100.0500, L500.4050 #### [facility] [address] [place], [address] Prothrombin timeOrdered By: Volodymyr Scruggs on 01-22-2025 PT Coag (PPP) [Time] 13.8 s 11.7-14.9 [facility] Urine Cultureon 01-22-2025 URC #2 Below infection level. Urine Culture Mixed Gram Pos Gram Neg Org [place] Count 11,000-25,000 Streptococcus group B Streptococcus group B Normal [facility] Comment on above: Performed By: #### L 3100.3425, L3100.5850, L3400.1500 #### [facility] [address] [place], [address] Electrocardiogram reportOrde red By: Kari Silver on 2025 EKG study [facility] Cardiovascular Services [address] [place] [address] 12 Lead EKG 01/19/25 0854 MR#: [id number] Acct: [id number] Name: ARIEL NGUYEN Rep #:[id number] : 1960 65 From: Kari forrester MD Attending Dr: Dr. Franky Sy, Status: ADM IN Ordering Dr: Mikki Hall MD Date: Location: [facility] Sex: F C Admitted: 01/19/25 Test Reason : Blood Pressure : */* mmHG Vent. Rate : 72 BPM Atrial Rate : 72 BPM P-R Int : 146 ms QRS Dur : 100 ms QT Int : 414 ms P-R-T Axes : 57 -15 31 degrees QTcB Int : 453 ms Normal sinus rhythm Moderate voltage criteria for LVH, may be normal variant ( R in aVL , [place] product ) Nonspecific ST abnormality Abnormal ECG Confirmed by CLOVIS HICKMAN, ACOSTA ([id number]), editor book OSVALDO ESTRADA ([id number]) on2025 1:32:53 PM Referred By: Confirmed By: ACOSTA SILVER MD 01/20/25 1332 Date _ Kari Silver MD CC: CLARITZA Power; Dr. Mikki Hall MD; Dr. Franky Sy, DO ~ Signed [facility] Other Phone: 12 Lead EKGon 01-19-2025 12 Lead EKG [facility] Cardiovascular Services [address] [place] [address] 12 Lead EKG 01/19/25 0854 MR#: [id number] Acct: [id number] Name: ARIEL NGUYEN Rep #: [id number] : 1960 65 From: Kari Silver MD Attending Dr: Dr. Franky Sy DO Status: A DM IN Ordering Dr: Mikki Hall MD Date: 01/19/25 Location: [facility] Sex: F C Admitted: 01/19/25 Test Reason : Blood Pressure : */* mmHG Vent. Rate : 72 BPM Atrial Rate : 72 BPM P-R Int : 146 ms QRS Dur : 100 ms QT Int : 414 ms P-R-T Axes : 57 -15 31 degrees QTcB Int : 453 ms Normal sinus rhythm Moderate voltage criteria for LVH, may be normal variant ( R in aVL , [employer] product ) Nonspecific ST abnormality Abnormal ECG Confirmed by CLOVIS HICKMAN, ACOSTA ([id number]), editor book OSVALDO ESTRADA ([id number]) on 2025 1:32:53 PM Referred By: Confirmed By: ACOSTA SILVER MD 01/20/25 1332 Date Kari Silver MD CC: CLARITZA Power; Dr. Mikki Hall MD; Dr. Franky Sy DO Signed Normal [facility] Abdomen/Pelvis without Conto n 01-19-2025 Abdomen/Pelvis without Cont [facility] Imaging Services [address] [place] [id number] Abdomen/Pelvis without Cont MR#: [id number] Acct: [id number] Name: ARIEL NGUYEN Rep #: [id number] : 1960 F 65 From: Kip fam MD PCP: [employer] PA-C Status: REG ER Study: Abdomen/Pelvis without Cont Date of Exam: 01/01 Exam# [id number] Ordering Dr: Mikki Hall MD PROCEDURE: ABDOMEN/PELVIS WITHOUT CONT 01/19/2025 REASON FOR EXAM: 1 day history of nausea and vomiting. History of gastroparesis and diverticulitis. TECHNIQUE: ABDOMEN/PELVIS WITHOUT CONT Noncontrast technique limits evaluation of the abdominal and pelvic viscera. Coronal and Sagittal reconstruction series were provided. One or more dose reduction techniques were used (e.g., Automated exposure control, adjustment of the mA and/or kV according to patient size, use of iterative reconstruction technique). RADIATION DOSE SUMMARY: CTDlvol: 10.93 mGy DLP: 581.78 mGycm COMPARISON: None FINDINGS: Lung bases: Mild increased markings in the lingular segment of the left upper lobe suggestive of scarring. Prior mitral valve replacement. Mild coronary artery calcification. Liver: Normal size. No obvious mass. Gallbladder: Questionable sludge or tiny gallstones along the dependent portion of the gallbladder lumen. Correlation with ultrasound recommended. Spleen: Normal size. Pancreas: Punctate calcifications in the body of the pancreas. Adrenals: Unremarkable Kidneys: No urolithiasis. No hydronephrosis. Bladder: Unremarkable Reproductive Organs: Prior hysterectomy. Adnexal regions are unremarkable. Bowel: Colonic diverticulosis without diverticulitis. Appendix: The appendix is not identified. There is no inflammatory process identified in the right lower quadrant to suggest appendicitis. Lymph nodes: Unremarkable. Vasculature: Mild diffuse atherosclerotic calcifications are noted. Peritoneum / Retroperitoneum: Unremarkable Bones: Degenerative changes of the spine. CT/Abdomen/Pelvis without Cont IMPRESSION: Sludge or tiny gallstones within the gallbladder lumen. Correlation with ultrasound recommended. Punctate calcifications in the body of the pancreas. Status post hysterectomy. Sigmoid diverticulosis. Reading Location: [id number] CC: CLARITZA Power; Dr. Mikki Hall MD Network Operations Analyst: Signed Normal [facility] Absolute lymphocyte countOrd ered By: Mikki Hall on 01-19-2025 Lymphocytes Auto (Unsp spec) [#/Vol] 0.89 10*3/uL 0.83-4.51 [facility] Absolute neutrophil countOrd ered By: Mikki Hall on 01-19-2025 Neutrophils (Bld) [#/Vol] 7.9 10*3/uL High 2.0-7.7 [facility] Anion gap in Serum or Plasma Ordered By: Mikki Hall on 01-19-2025 Anion gap [Moles/Vol] 13 mmol/L 5-15 [facility] Automated lymphocyte count a s percentage of total leukocytesOrdered By: Mikki Hall on 01-19-2025 Lymphocytes/100 WBC Auto (Unsp spec) 9.5 % Low 19-41 [facility] BUN/creatinine ratioOrdered By: Mikki Hall on 01-19-2025 Urea nitrogen/Creatinine [Mass ratio] 20.4 mg/mg High 10-20 [facility] Basophil percentageOrdered B y: Mikki Hall on 01-19-2025 Basophils/100 WBC (Bld) 0.2 % 0-1 [facility] Bilirubin Test strip Ql (U)O rdered By: Mikki Hall on 01-19-2025 Bilirubin Ql (U) Negative Negative [facility] Bilirubin, totalOrdered By: Mikki Hall on 01-19-2025 Bilirubin [Mass/Vol] 0.56 mg/dL Normal 0.00-1.30 [facility] Comment on above: Performed By: #### L 501.4021 #### [facility] Laboratory [address] [place], [address] CBC W/Diff, Automatedon 01-01 0-2024 Absolute Lymph 0.89 X10 3/uL Normal 0.83-4.51 [facility] Comment on above: Performed By: #### L [id number] #### [facility] Laboratory [address] [place], [address] Absolute Neut 7.9 X10 3/uL High 2.0-7.7 [facility] Comment on above: Performed By: #### L [id number] #### [facility] [address] [place], [address] Basophils/100 WBC (Bld) 0.2 % Normal 0-1 [facility] Comment on above: Performed By: #### L [id number] #### [facility] Laboratory [address] [place], [address] Eosinophils/100 WBC (Bld) 0.2 % Normal 0-5 [facility] Comment on above: Performed By: #### L [id number] #### [facility] Laboratory [address] [place], [address] Erythrocyte distribution width (RBC) [Ratio] 13.6 % Normal 11.6-14.6 [facility] Comment on above: Performed By: #### L [id number] #### [facility] Laboratory [address] [place], [address] Hematocrit (Bld) [Volume fraction] 39.0 % Normal 37-47 [facility] Comment on above: Performed By: #### L [id number] #### [facility] Laboratory [address] [place], [address] Hemoglobin (Bld) [Mass/Vol] 13.5 g/dL Normal 12.0-15.0 [facility] Comment on above: Performed By: #### L [id number] #### [facility] [address] [place], [address] IG% 0.200 Normal 0.0-0.9 [facility] Comment on above: Result Comment: IG% - Immature Granulocytes (promyelocytes, myelocytes and metamyelocytes) > 1% indicates that a LEFT SHIFT is Present. Performed By: #### L [id number] #### [facility] Laboratory [address] [place], [address] Lymphocytes/100 WBC (Bld) 9.5 % Low 19-41 [facility] Comment on above: Performed By: #### L [id number] #### [facility] [address] [place], [address] MCH (RBC) [Entitic mass] 29.5 pg Normal 27.0-32.0 [facility] Comment on above: Performed By: #### L [id number] #### [facility] Laboratory [address] [place], [address] MCHC (RBC) [Mass/Vol] 34.6 g/dL Normal 32-36 [facility] Comment on above: Performed By: #### L [id number] #### [facility] [address] [place], [address] MCV (RBC) [Entitic vol] 85.2 fL Normal 81-99 [facility] Comment on above: Performed By: #### L [id number] #### [facility] [address] [place], [address] Monocytes/100 WBC (Bld) 5.0 % Normal 0-10 [facility] Comment on above: Performed By: #### L [id number] #### [facility] [address] [place], [address] Neutrophils/100 WBC (Bld) 84.9 % High 47-70 [facility] Comment on above: Performed By: #### L [id number] #### [facility] Laboratory [address] [place], [address] Nucleated RBC (Bld) [#/Vol] 0 10*3/uL Normal 0-5 [facility] Comment on above: Performed By: #### L [id number] #### [facility] [address] [place], [address] Platelet mean volume (Bld) [Entitic vol] 9.7 fL Normal 6.2-12.0 [facility] Comment on above: Performed By: #### L [id number] #### [facility] [address] [place], [address] Platelets (Bld) [#/Vol] 206 10*3/uL Normal 150-450 [facility] Comment on above: Performed By: #### L [id number] #### [facility] Laboratory [address] [place], [address] RBC (Bld) [#/Vol] 4.58 10*6/uL Normal 4.2-5.4 [facility] Comment on above: Performed By: #### L [id number] #### [facility] Laboratory [address] [place], [address] RDW SD 42.1 fl Normal 35.1-43.9 [facility] Comment on above: Performed By: #### L [id number] #### [facility] Laboratory [address] [place], [address] WBC (Bld) [#/Vol] 9.4 10*3/uL Normal 4.4-11.0 [facility] Comment on above: Performed By: #### L [id number] #### [facility] Laboratory [address] [place], [address] Carbon dioxide, total [Moles /volume] in Central venous bloodOrdered By: Mikki Hall on 01-19-2025 CO2 [Moles/Vol] 23.2 mmol/L Normal 21.0-32.0 [facility] Comment on above: Performed By: #### L [id number] #### [facility] [address] [place], [address] Chloride assayOrdered By: Amos Hall on 01-19-2025 Chloride [Moles/Vol] 104 mmol/L Normal 98-108 [facility] Comment on above: Performed By: #### L [id number] #### [facility] Laboratory [address] [place], [address] Comprehensive Metabolic Prof ilon 01-19-2025 ALK PHOS 99 U/L Normal 35-104 [facility] Comment on above: Performed By: #### L [id number] #### [facility] Laboratory [address] [place], [address] BUN/CRE 20.4 RATIO High - [facility] Comment on above: Performed By: #### L [id number] #### [facility] Laboratory [address] [place], [address] GAP 13 Normal 5-15 [facility] Comment on above: Performed By: #### L [id number] #### [facility] Laboratory [address] [place], [address] Potassium [Moles/Vol] 3.7 mmol/L Normal 3.3-5.1 [facility] Comment on above: Performed By: #### L [id number] #### [facility] Laboratory [address] [place], [address] T PROT 7.3 g/dL Normal 5.9-8.4 [facility] Comment on above: Performed By: #### L [id number] #### [facility] Laboratory [address] [place], [address] Comprehensive Metabolic Prof ilOrdered By: Mikki Hall on 01-19-2025 AST [Catalytic activity/Vol] 43 U/L High <=31 [facility] Comment on above: Performed By: #### L [id number] #### [facility] Laboratory [address] [place], [address] Emergency Department Summary on 01-19-2025 Emergency Department Summary [facility] Medical Records Department [address] [place] [address] Emergency Department Summary 01/19/25 MR#: [id number] Acct: [id number] Name: ARIEL NGUYEN Rep #: [id number] : 1960 65 From: Mikki Hall MD PCP: [employer] PA-C Status:[facility] ER Location: ED HPI History of Present Illness Chief Complaint: Nausea/Vomiting Narrative Narrative: Patient is a 65-year-old female presenting to the emergency department for nausea and vomiting. Patient has a past medical history as below including gastroparesis and irritable bowel disease. Patient states that 2 days ago in the evening she developed nausea with multiple episodes of nonbloody, nonbilious vomiting. States that she was here yesterday morning for the same complaint and was given a few different medications and felt improved and was discharged home. She states that she has been trying Phenergan suppositories at home with no relief of the symptoms. States this feels like her gastroparesis. Reports that her bowel movements have been normal, no diarrhea or constipation. No blood. No dysuria or hematuria. No chest pain or shortness of breath. Patient does use marijuana products daily. [facility] Medical History Right shoulder pain Home Medications ???Medication ???Instructions ???Recorded ???Last Taken ???Type escitalopram oxalate 20 mg tablet 20 mg PO DAILY 10/07/23 Unknown H istory (Lexapro) hydroxychloroquine 200 mg tablet 200 mg PO DAILY 10/07/23 Unknown H istory (Plaquenil) hydroxyzine HCl 10 mg tablet 10 mg PO ONCE 10/07/23 Unknown His tory levothyroxine 88 mcg capsule 88 mcg PO DAILY 10/07/23 Unknown H istory losartan 25 mg tablet 25 mg PO DAILY 10/07/23 Unknown Hi story promethazine 25 mg rectal 25 mg VT Q6H PRN nausea and Unknown Rx suppository vomiting #12 ea Allergy/AdvReac Type Severity Reaction Status Date / Time clindamycin AdvReac Other Verified 01/19/25 08:21 Penicillins AdvReac Other Verified 01/19/25 08:21 Sulfa (Sulfonamide AdvReac Other Verified 01/19/25 08:21 Antibiotics) Family History Father Hypertension CVA (cerebral vascular accident) Myocardial infarction Arthritis Mother Arthritis Cancer Sister Hypertension Arthritis Cancer Surgical History H/O thumb surgery H/O wrist surgery Social History household members: significant other Smoking Status: Former smoker alcohol intake: never what type of physical activity do you participate in: walking ROS ROS ED ROS Narrative see HPI EXAM Physical Exam Narrative Exam Narrative: Vital signs: Reviewed General: Alert and orientedx3. No acute distress HEENT: Head is normocephalic and atraumatic, sinuses nontender, pupils equal round and reactive. Nares are patent. Oropharynx and throat exams normal. Neck: Supple without lymphadenopathy nontender Cardiovascular: Regular rate and rhythm, no murmurs. No rubs or gallops. Normal S1 and S2 Respiratory: Clear to auscultation bilaterally. No wheezes, rales, rhonchi Abdominal: Soft and mildly tender to palpation in epigastric region. Normal bowel sounds. No guarding or rebound. Nonsurgical abdomen Extremities: No tenderness. No bruising. Normal range of motion. Normal sensation. Skin: No rash or redness. Neurological: Cranial nerves II through XII are grossly intact. Normal strength and sensation. Normal cerebellar function The rest of the physical exam is unremarkable Const Vital Signs: 01/19/25 08:19 01/19/25 10:19 Temperature 96.9 F L Temperature Source Temporal Pulse Rate 74 85 Respiratory Rate 16 18 Blood Pressure 188/88 H 200/90 H Blood Pressure Mean 121 126 Pulse Ox 100 96 Oxygen Delivery Method Room Air Room Air MDM MDM MDM Narrative Medical decision making narrative: Patient is a 65-year-old female presenting to the emergency department for nausea and vomiting. Patient was seen and examined. Vitals are stable. Patient resting in bed comfortably no acute distress. Differential includes but is not limited to: Gastroparesis, cannabis hyperemesis syndrome, gastroenteritis, pancreatitis, cholecystitis, diverticulitis Fluids started and patient given Haldol for symptomatic control. EKG shows normal sinus rhythm. There is some mild ST depression in V4 through V6, no reciprocal changes. No dysrhythmia. CBC with no leukocytosis and normal hemoglobin. CMP with mild transaminitis, otherwise no significant abnormalities. Lipase elevated at 464. Given the patient was just here yesterday with similar complaints, CT of the abdomen was obtained and elier (more content not included)... Normal [facility] Eosinophil percentageOrdered By: Mikki Hall on 01-19-2025 Eosinophils/100 WBC (Bld) 0.2 % 0-5 [facility] Erythrocyte distribution wid th ratioOrdered By: Mikki Hall on 01-19-2025 Erythrocyte distribution width (RBC) [Ratio] 13.6 % 11.6-14.6 [facility] Erythrocyte distribution wid th standard deviationOrdered By: Mikki Hall on 01-19-2025 Erythrocyte distribution width (RBC) [Ratio] 42.1 fl 35.1-43.9 [facility] Gallbladderon 01-19-2025 Gallbladder [facility] Imaging Services [address] [place], [place] [address] Gallbladder MR#: [id number] Acct: [id number] Name: ARIEL NGUYEN Rep #: [id number] : 1960 F 65 From: Kip fam MD PCP: [employer] PA-C Status: REG ER Study: Gallbladder Date of Exam: 01/19/25 Exam# [id number] Ordering Dr: Mikki Hall MD PROCEDURE: GALLBLADDER 01/19/2025 REASON FOR EXAM: SLUDGE, ABDOMINAL PAIN COMPARISON: Prior CT scan done earlier in the day. FINDINGS: Liver: Grossly normal size and echotexture. Gallbladder: Sludge is seen within the gallbladder lumen. The gallbladder wall is not thickened. Common bile duct: Normal measuring 6.1 mm . Pancreas: Normal Other: Visualized portions of the right kidney are unremarkable. No right upper quadrant ascites. US/Gallbladder IMPRESSION: Sludge is seen within the gallbladder lumen. Reading Location: [id number] CC: [employer]; Dr. Mikki Hall MD Network Operations Analyst: Signed Normal [facility] Glomerular filtration rate ( GFR) estimation/1.73 sq m using serum, plasma, or whole bOrdered By: Mikki Hall on 01-19-2025 GFR/1.73 sq M.predicted among non-blacks MDRD (S/P/Bld) [Vol rate/Area] 87 mL/min/{1.73_m2} Normal >60 [facility] Comment on above: mL/min/1.73m2 CKD-EP I Creatinine Equation (2020) Result Comment: mL/m in/1.73m2 CKD-EPI Creatinine Equation (2020) Performed By: #### L [id number] #### [facility] Laboratory [address] [place], [address] H AND P Exam - Hospitaliston 01-19-2025 H&P Exam - Hospitalist [facility] Medical Records Department [address] [place] [address] H P Exam - Hospitalist 01/19/25 1842 MR#: [id number] Acct: [id number] Name: ARIEL NGUYEN Rep #: [id number] : 1960 65 From: Franky Sy DO PCP: [employer] PA-C Status:ADM IN [id number] - General General Date of Admission: 01/19/25 Date of Service: 01/19/25 Chief Complaint: Persistent nausea and vomiting HPI Narrative ARIEL NGUYEN, is a 65 F who presents to the room at [facility] for persistent nausea and vomiting, this started 48 hours ago after she ate some vegetables with [place] dressing on it. Patient is a daily user of marijuana. Labs were obtained and were unremarkable, abdominal and pelvic CT showed sludge or tiny gallstones within the gallbladder lumen and punctate calcifications in the body of the pancreas. Abdominal ultrasound reveals sludge within the gallbladder lumen. Patient was given IV Haldol in the emergency room but still had nausea. Patient will be admitted to [facility] for persistent nausea and vomiting-suspicious for cannabis hyperemesis syndrome (CHS). I have elected to place her on IV Reglan and give her IV Compazine initially for nausea and vomiting, it may be necessary to adjust these medications if she does not respond. Patient will be given IV fluids [facility] Medical History Right shoulder pain Home Medications ???Medication ???Instructions ???Recorded ???Last Taken ???Type levothyroxine 88 mcg capsule 88 mcg PO DAILY 10/07/23 Unknown H istory losartan 25 mg tablet 50 mg PO DAILY 10/07/23 Unknown Hi story alprazolam 0.25 mg tablet 0.25 mg PO DAILY PRN anxiety 01/19 Unknown History atorvastatin 80 mg tablet 80 mg PO QHS 01/19/25 Unknown Hist ory clopidogrel 75 mg tablet 75 mg PO DAILY 01/19/25 Unknown Hi story desvenlafaxine succinate 50 mg 50 mg PO DAILY 01/19/25 Unknown Hi story tablet,extended release 24 hr furosemide 20 mg tablet 20 mg PO DAILY 01/19/25 Unknown Hi story hydroxyzine HCl 25 mg tablet 50 mg PO BID 01/19/25 Unknown Hist ory metoprolol tartrate 25 mg tablet 25 mg PO DAILY 01/19/25 Unknown Hi story oxcarbazepine 150 mg tablet 150 mg PO BID 01/19/25 Unknown His tory pantoprazole 40 mg tablet,delayed 40 mg PO DAILY 01/19/25 Unknown H istory release quetiapine 25 mg tablet 25 - 50 mg PO QHS PRN PRN insomnia 01/19/25 Unknown History Allergy/AdvReac Type Severity Reaction Status Date / Time clindamycin AdvReac Other Verified 01/19/25 08:21 Penicillins AdvReac Other Verified 01/19/25 08:21 Sulfa (Sulfonamide AdvReac Other Verified 01/19/25 08:21 Antibiotics) Family History Father Hypertension CVA (cerebral vascular accident) Myocardial infarction Arthritis Mother Arthritis Cancer Sister Hypertension Arthritis Cancer Surgical History H/O thumb surgery H/O wrist surgery Social History household members: significant other Smoking Status: Former smoker alcohol intake: never what type of physical activity do you participate in: walking ROS Constitutional Constitutional: Denies anorexia, change in weight, fever(s), night sweats or weakness Eyes Eyes: Denies blurry vision, change in vision, discharge from eye(s) or eye pain Cardiovascular Cardiovascular: Denies chest pain, claudication, edema or palpitations Respiratory/Chest Respiratory/Chest: Denies cough, hemoptysis, shortness of breath at rest or shortness of breath with exertion Gastrointestinal Gastrointestinal: Reports abdominal pain, nausea and vomiting; Denies constipation, diarrhea, hematemesis, hematochezia or melena Genitourinary Genitourinary: Denies dysuria, hematuria, urinary frequency, urinary hesitancy, urinary incontinence or urinary urgency Musculoskeletal Musculoskeletal: Denies back pain, joint pain, joint stiffness, joint swelling, myalgias or neck pain Neurologic Neurologic: Denies abnormal gait, abnormal speech, dizziness, focal weakness, headache(s), loss of vision, numbness, other visual disturbances, paresthesias, syncope or tingling Psychiatric Psychiatric: Denies anxiety, cognitive impairment, depression, irritability, mood swings or suicidal ideation Endocrine Endocrinology: Denies change in body appearance, cold intolerance, excessive sweating, heat intolerance, polydipsia or polyuria Hematologic/Lymphatic Hematologic/Lymphatic: Denies none, anemia, easy bleeding, easy bruising or lymphadenopathy Allergic/Immunologic Allergic/Immunologic: Denies rhinitis, urticaria, eczemia or asthma Vital Signs Vital Signs Vital Signs: (more content not included)... Normal [facility] Hematocrit Auto (Bld) [Volum e fraction]Ordered By: Mikki Hall on 01-19-2025 Hematocrit (Bld) [Volume fraction] 39.0 % 37-47 [facility] Hemoglobin measurementOrdere d By: Mikki Hall on 01-19-2025 Hemoglobin (Bld) [Mass/Vol] 13.5 g/dL 12.0-15.0 [facility] Immature granulocytes/100 WB C Auto (Bld)Ordered By: Mikki Hall on 01-19-2025 Immature granulocytes/100 WBC (Bld) 0.200 % 0.0-0.9 [facility] Comment on above: IG% - Immature Granu locytes (promyelocytes, myelocytes and metamyelocytes) > 1% indicates that a LEFT SHIFT is Present. Ketones Test strip Ql (U)Ord ered By: Mikki Hall on 01-19-2025 Ketones Ql (U) 15 mg/dl High Negative [facility] L501.4021on 01-19-2025 Trop T High Sen 25 ng/L High <=14 [facility] Comment on above: Performed By: #### L 501.4021 #### [facility] Laboratory [address] [place], [place] [address], [address] Lipaseon 01-19-2025 Lipase [Catalytic activity/Vol] 464 U/L High 13-75 [facility] Comment on above: Result Comment: Kristina jose note: LIPASE revised reference range effective 22. New Lipase methodology. Expected to produce lower values than the previous assay method. NEW Reference Range: 13 - 75 U/L Performed By: #### L 501.4021 #### [facility] Laboratory [address] [place], [place], [id number] Lipase measurementOrdered By : Mikki Hall on 01-19-2025 Lipase [Catalytic activity/Vol] 464 U/L High 13-75 [facility] Comment on above: Please note:LIPASE r evised reference range effective 22. New Lipase methodology. Expected to produce lower values than the previous assay method. NEW Reference Range: 13 - 75 U/L MCV (mean corpuscular volume ) determinationOrdered By: Mikki Hall on 01-19-2025 MCV (RBC) [Entitic vol] 85.2 fL 81-99 [facility] Mean corpuscular hemoglobin (MCH) determinationOrdered By: Mikki Hall on 01-19-2025 MCH (RBC) [Entitic mass] 29.5 pg 27.0-32.0 [facility] Mean corpuscular hemoglobin concentration (MCHC) determinationOrdered By: Mikki Hall on 01-19-2025 MCHC (RBC) [Mass/Vol] 34.6 g/dL 32-36 [facility] Mean platelet volume determi nationOrdered By: Mikki Hall on 01-19-2025 Platelet mean volume (Bld) [Entitic vol] 9.7 fL 6.2-12.0 [facility] Microscopic analysis of urin e for red blood cells (RBC)Ordered By: Mikki Hall on 01-19-2025 Microscopic analysis of urine for red blood cells (RBC) 0 SEEN /hpf 0-5 [facility] Monocyte percentageOrdered B y: Mikki Hall on 01-19-2025 Monocytes/100 WBC (Bld) 5.0 % 0-10 [facility] Mucus LM Ql (Urine sed)Order ed By: Mikki Hall on 01-19-2025 Mucus Ql (Urine sed) 0 SEEN /hpf [facility] Neutrophil percentageOrdered By: Mikki Hall on 01-19-2025 Neutrophils/100 WBC (Bld) 84.9 % High 47-70 [facility] Nitrite Test strip Ql (U)Ord ered By: Mikki Hall on 08-20-2025 Nitrite Ql (U) Negative Negative [facility] Nucleated red blood cell per centageOrdered By: Mikki Rafael on 01-19-2025 Nucleated RBC/100 WBC (Bld) [Ratio] 0 % 0-5 [facility] Platelet countOrdered By: Amos risa Rafael on 01-19-2025 Platelets (Bld) [#/Vol] 206 10*3/uL 150-450 [facility] Potassium measurement (mass/ volume)Ordered By: Mikki Hall on 01-19-2025 Potassium (Unsp spec) [Mass/Vol] 3.7 mmol/L 3.3-5.1 [facility] Protein Test strip Ql (U)Ord ered By: Mikkirisa Hall on 01-19-2025 Protein Ql (U) 30 mg/dl High Negative [facility] RBC Auto (Bld) [#/Vol]Ordere d By: Mikki Rafael on 01-19-2025 RBC (Bld) [#/Vol] 4.58 10*6/uL 4.2-5.4 [facility] Serum creatinine measurement (mass/volume)Ordered By: Mikkirisa Hall on 01-19-2025 Creatinine [Mass/Vol] 0.76 mg/dL Normal 0.70-1.20 [facility] Comment on above: Performed By: #### L 501.4021 #### [facility] Laboratory [address], [place], [id number] Serum globulin measurementOr dered By: Mikkirisa Hall on 01-19-2025 Globulin (S) [Mass/Vol] 2.7 g/dL Normal 2.2-4.2 [facility] Comment on above: Performed By: #### L [id number] #### [facility] Laboratory [address] [place], [place], [id number] Serum glucose measurement (m ass/volume)Ordered By: Mikkirisa Hall on 01-19-2025 Glucose [Mass/Vol] 130 mg/dL High 70-99 [facility] Comment on above: Performed By: #### L 501.4021 #### [facility] Laboratory [address] [place], [address] Serum or plasma alanine fuentes otransferase (ALT) measurementOrdered By: Mikki Hall on 01-19-2025 ALT [Catalytic activity/Vol] 50 U/L High <=34 [facility] Comment on above: Performed By: #### L 501.4021 #### [facility] Laboratory [address] [place], [place], [address] Serum or plasma albumin sami urement (mass/volume)Ordered By: Mikki Hall on 01-19-2025 Albumin [Mass/Vol] 4.6 g/dL Normal 3.4-4.8 [facility] Comment on above: Performed By: #### L 501.4021 #### [facility] [address] [place], [address] Serum or plasma albumin/glob ulin mass ratioOrdered By: Mikki Hall on 01-19-2025 Albumin/Globulin [Mass ratio] 1.7 {ratio} Normal 0.9-2.4 [facility] Comment on above: Performed By: #### L 501.4021 #### [facility] [address] [place], [address] Serum or plasma alkaline fam sphatase measurementOrdered By: Mikki Hall on 01-19-2025 ALP [Catalytic activity/Vol] 99 U/L 35-104 [facility] Serum or plasma calcium sami urement (mass/volume)Ordered By: Mikki Hall on 01-19-2025 Calcium [Mass/Vol] 9.0 mg/dL Normal 7.6-11.0 [facility] Comment on above: Performed By: #### L 501.4021 #### [facility] [address] [place], [address] Serum or plasma urea nitroge n measurement (mass/volume)Ordered By: Mikki Hall on 01-19-2025 Urea nitrogen [Mass/Vol] 16 mg/dL Normal 4-19 [facility] Comment on above: Performed By: #### L 501.4021 #### [facility] [address] [place], [address] Sodium levelOrdered By: Cody Hall on 01-19-2025 Sodium [Moles/Vol] 141 mmol/L Normal 133-145 [facility] Comment on above: Performed By: #### L 501.4021 #### [facility] [address] [place], [address] Squamous epithelial cells de tection in urine sediment by light microscopyOrdered By: Mikki Hall on 01-19-2025 Epithelial cells.squamous LM Ql (Urine sed) 0-5 SEEN /hpf 5-10 [facility] Total proteinOrdered By: Sary Hall on 01-19-2025 Protein [Mass/Vol] 7.3 g/dL 5.9-8.4 [facility] Troponin T HS 2 HRon 025 Trop T High Sen 23 ng/L High <=14 [facility] Comment on above: Performed By: #### L 3100.3425, L3100.5850, L3400.1500 #### [facility] [address] [place], [address] Troponin T HS 4 HRon 025 Trop T High Sen Normal <=14 [facility] Comment on above: Result Comment: Canc elled via OM: Order cancelled - Patient discharged Performed By: #### L 3100.3425, L3100.5850, L3400.1500 #### [facility] [address] [place], [address] Troponin T.cardiac [Mass/vol ume] in Serum or Plasma by High sensitivity methodOrdered By: Mikki Hall on 01-19-2025 Troponin T.cardiac High sensitivity method [Mass/Vol] 23 ng/L High <14 [facility] Troponin T.cardiac High sensitivity method [Mass/Vol] 25 ng/L High <14 [facility] Urinalysis, Completeon 01-19 EPI,SQUAMOUS 0-5 SEEN Normal 5-10 [facility] Comment on above: Order Comment: CLEAN CATCH Performed By: #### L 3100.3425, L3100.5850, L3400.1500 #### [facility] [address] [place], [address] WBC 10-25 SEEN Normal 0-5 [facility] Comment on above: Order Comment: CLEAN CATCH Performed By: #### L 3100.3425, L3100.5850, L3400.1500 #### [facility] [address] [place], [address] BACTERIA 0 SEEN Normal None Seen [facility] Comment on above: Order Comment: CLEAN CATCH Performed By: #### L 3100.3425, L3100.5850, L3400.1500 #### [facility] [address] [place], [address] Mucus Ql (Urine sed) 0 SEEN Normal [facility] Comment on above: Order Comment: CLEAN CATCH Performed By: #### L 3100.3425, L3100.5850, L3400.1500 #### [facility] [address] [place], [address] RBC 0 SEEN Normal 0-5 [facility] Comment on above: Order Comment: CLEAN CATCH Performed By: #### L 3100.3425, L3100.5850, L3400.1500 #### [facility] [address] [place], [address] Urine clarityOrdered By: Sary Hall on 01-19-2025 Clarity (U) Clear Clear [facility] Urine color determinationOrd ered By: Mikki Hall on 01-19-2025 Color (U) Yellow Yellow [facility] Urine cultureOrdered By: Pema Sy on 01-19-2025 Bacteria identified Cx Nom (U) Mixed Gram Pos & Gram Neg Org Abnormal [facility] Bacteria identified Cx Nom (U) Streptococcus group B Abnormal [facility] Urine glucose detectionOrder ed By: Mikki Hall on 08-20-2025 Glucose Ql (U) Normal mg/dl Normal [facility] Urine leukocyte esterase det ection by dipstickOrdered By: Mikki Hall on 01-19-2025 Leukocyte esterase Test strip Ql (U) 500 /ul High Negative [facility] Urine pHOrdered By: Mikki freeman on 01-19-2025 pH (U) 6.0 [pH] 5.0 - 8.0 [facility] Urine sediment bacteria coun t by microscopy (number/high power field)Ordered By: Mikki Hall on 01-19-2025 Bacteria LM.HPF (Urine sed) [#/Area] 0 /[HPF] None Seen [facility] Urine specific gravity measu rementOrdered By: Mikki Hall on 01-19-2025 Specific gravity (U) [Rel density] 1.015 1.002-1.030 [facility] Urine urobilinogen measureme ntOrdered By: Mikki Hall on 01-19-2025 Urobilinogen Ql (U) Normal mg/dl Normal [facility] White blood cell (WBC) count Ordered By: Mikki Hall on 01-19-2025 WBC (Bld) [#/Vol] 9.4 10*3/uL 4.4-11.0 [facility] White blood cell countOrdere d By: Mikki Hall on 01-19-2025 White blood cell count 10-25 SEEN /hpf 0-5 [facility] Absolute lymphocyte countOrd ered By: Ulysses Christian on 01-18-2025 Lymphocytes Auto (Unsp spec) [#/Vol] 0.46 10*3/uL Low 0.83-4.51 [facility] Absolute neutrophil countOrd ered By: Ulysses Christian on 01-18-2025 Neutrophils (Bld) [#/Vol] 6.0 10*3/uL 2.0-7.7 [facility] Anion gap in Serum or Plasma Ordered By: Ulysses Christian on 01-18-2025 Anion gap [Moles/Vol] 20 mmol/L High 5-15 [facility] Automated lymphocyte count a s percentage of total leukocytesOrdered By: Ulysses Christian on 01-18-2025 Lymphocytes/100 WBC Auto (Unsp spec) 6.9 % Low 19-41 [facility] BUN/creatinine ratioOrdered By: Ulysses Christian on 01-18-2025 Urea nitrogen/Creatinine [Mass ratio] 21.9 mg/mg High - [facility] Basophil percentageOrdered B y: Ulysses Christian on 01-18-2025 Basophils/100 WBC (Bld) 0.2 % 0-1 [facility] Bilirubin, totalOrdered By: Ulysses Christian on 01-18-2025 Bilirubin [Mass/Vol] 0.43 mg/dL 0.00-1.30 [facility] CBC W/Diff, Automatedon 12-31 Absolute Lymph 0.46 X10 3/uL Low 0.83-4.51 [facility] Comment on above: Performed By: #### L 100.0500, L500.4050 #### [facility] [address] [place], [address] Absolute Neut 6.0 X10 3/uL Normal 2.0-7.7 [facility] Comment on above: Performed By: #### L 100.0500, L500.4050 #### [facility] [address] [place], [address] Basophils/100 WBC (Bld) 0.2 % Normal 0-1 [facility] Comment on above: Performed By: #### L 100.0500, L500.4050 #### [facility] [address] [place], [address] Eosinophils/100 WBC (Bld) 0.0 % Normal 0-5 [facility] Comment on above: Performed By: #### L 100.0500, L500.4050 #### [facility] [address] [place], [address] Erythrocyte distribution width (RBC) [Ratio] 13.2 % Normal 11.6-14.6 [facility] Comment on above: Performed By: #### L 100.0500, L500.4050 #### [facility] [address] [place], [address] Hematocrit (Bld) [Volume fraction] 41.5 % Normal 37-47 [facility] Comment on above: Performed By: #### L 100.0500, L500.4050 #### [facility] [address] [place], [address] Hemoglobin (Bld) [Mass/Vol] 14.8 g/dL Normal 12.0-15.0 [facility] Comment on above: Performed By: #### L 100.0500, L500.4050 #### [facility] [address] [place], [address] IG% 0.500 Normal 0.0-0.9 [facility] Comment on above: Result Comment: IG% - Immature Granulocytes (promyelocytes, myelocytes and metamyelocytes) > 1% indicates that a LEFT SHIFT is Present. Performed By: #### L 100.0500, L500.4050 #### [facility] [address] [place], [address] Lymphocytes/100 WBC (Bld) 6.9 % Low 19-41 [facility] Comment on above: Performed By: #### L 100.0500, L500.4050 #### [facility] [address] [place], [address] MCH (RBC) [Entitic mass] 29.5 pg Normal 27.0-32.0 [facility] Comment on above: Performed By: #### L 100.0500, L500.4050 #### [facility] [address] [place], [address] MCHC (RBC) [Mass/Vol] 35.7 g/dL Normal 32-36 [facility] Comment on above: Performed By: #### L 100.0500, L500.4050 #### [facility] [address] [place], [address] MCV (RBC) [Entitic vol] 82.7 fL Normal 81-99 [facility] Comment on above: Performed By: #### L 100.0500, L500.4050 #### [facility] [address] [place], [address] Monocytes/100 WBC (Bld) 2.6 % Normal 0-10 [facility] Comment on above: Performed By: #### L 100.0500, L500.4050 #### [facility] [address] [place], [address] Neutrophils/100 WBC (Bld) 89.8 % High 47-70 [facility] Comment on above: Performed By: #### L 100.0500, L500.4050 #### [facility] [address] [place], [address] Nucleated RBC (Bld) [#/Vol] 0 10*3/uL Normal 0-5 [facility] Comment on above: Performed By: #### L 100.0500, L500.4050 #### [facility] [address] [place], [address] Platelet mean volume (Bld) [Entitic vol] 10.1 fL Normal 6.2-12.0 [facility] Comment on above: Performed By: #### L 100.0500, L500.4050 #### [facility] [address] [place], [address] Platelets (Bld) [#/Vol] 248 10*3/uL Normal 150-450 [facility] Comment on above: Performed By: #### L 100.0500, L500.4050 #### [facility] [address] [place], [address] RBC (Bld) [#/Vol] 5.02 10*6/uL Normal 4.2-5.4 [facility] Comment on above: Performed By: #### L 100.0500, L500.4050 #### [facility] [address] [place], [address] RDW SD 39.6 fl Normal 35.1-43.9 [facility] Comment on above: Performed By: #### L 100.0500, L500.4050 #### [facility] [address] [place], [address] WBC (Bld) [#/Vol] 6.7 10*3/uL Normal 4.4-11.0 [facility] Comment on above: Performed By: #### L 100.0500, L500.4050 #### [facility] [address] [place], [address] Carbon dioxide, total [Moles /volume] in Central venous bloodOrdered By: Ulysses Christian on 01-18-2025 CO2 [Moles/Vol] 22.5 mmol/L 21.0-32.0 [facility] Chloride assayOrdered By: Alex Christian on 01-18-2025 Chloride [Moles/Vol] 98 mmol/L 98-108 [facility] Comprehensive Metabolic Prof ilon 01-18-2025 Albumin [Mass/Vol] 5.0 g/dL High 3.4-4.8 [facility] Comment on above: Performed By: #### L 100.0500, L500.4050 #### [facility] [address] [place], [address] Albumin/Globulin [Mass ratio] 1.5 {ratio} Normal 0.9-2.4 [facility] Comment on above: Performed By: #### L 100.0500, L500.4050 #### [facility] [address] [place], [address] ALK PHOS 120 U/L High 35-104 [facility] Comment on above: Performed By: #### L 100.0500, L500.4050 #### [facility] [address] [place], [address] ALT [Catalytic activity/Vol] 41 U/L High <=34 [facility] Comment on above: Performed By: #### L 100.0500, L500.4050 #### [facility] [address] [place], [address] AST [Catalytic activity/Vol] 39 U/L High <=31 [facility] Comment on above: Performed By: #### L 100.0500, L500.4050 #### [facility] [address] [place], [address] Bilirubin [Mass/Vol] 0.43 mg/dL Normal 0.00-1.30 [facility] Comment on above: Performed By: #### L 100.0500, L500.4050 #### [facility] [address] [place], [address] BUN/CRE 21.9 RATIO High 10-20 [facility] Comment on above: Performed By: #### L 100.0500, L500.4050 #### [facility] [address] [place], [address] Calcium [Mass/Vol] 10.3 mg/dL Normal 7.6-11.0 [facility] Comment on above: Performed By: #### L 100.0500, L500.4050 #### [facility] [address] [place], [address] Chloride [Moles/Vol] 98 mmol/L Normal 98-108 [facility] Comment on above: Performed By: #### L 100.0500, L500.4050 #### [facility] [address] [place], [address] CO2 [Moles/Vol] 22.5 mmol/L Normal 21.0-32.0 [facility] Comment on above: Performed By: #### L 100.0500, L500.4050 #### [facility] [address] [place], [address] Creatinine [Mass/Vol] 0.93 mg/dL Normal 0.70-1.20 [facility] Comment on above: Performed By: #### L 100.0500, L500.4050 #### [facility] [address] [place], [address] GAP 20 High 5-15 [facility] Comment on above: Performed By: #### L 100.0500, L500.4050 #### [facility] [address] [place], [address] GFR/1.73 sq M.predicted among non-blacks MDRD (S/P/Bld) [Vol rate/Area] 69 mL/min/{1.73_m2} Normal >60 [facility] Comment on above: Result Comment: mL/m in/1.73m2 CKD-EPI Creatinine Equation (2020) Performed By: #### L 100.0500, L500.4050 #### [facility] [address] [place], [address] Globulin (S) [Mass/Vol] 3.3 g/dL Normal 2.2-4.2 [facility] Comment on above: Performed By: #### L 100.0500, L500.4050 #### [facility] [address] [place], [address] Glucose [Mass/Vol] 209 mg/dL High 70-99 [facility] Comment on above: Performed By: #### L 100.0500, L500.4050 #### [facility] [address] [place], [address] Potassium [Moles/Vol] 4.0 mmol/L Normal 3.3-5.1 [facility] Comment on above: Performed By: #### L 100.0500, L500.4050 #### [facility] [address] [place], [address] Sodium [Moles/Vol] 141 mmol/L Normal 133-145 [facility] Comment on above: Performed By: #### L 100.0500, L500.4050 #### [facility] [address] [place], [address] T PROT 8.3 g/dL Normal 5.9-8.4 [facility] Comment on above: Performed By: #### L 100.0500, L500.4050 #### [facility] [address] [place], [address] Urea nitrogen [Mass/Vol] 20 mg/dL High 4-19 [facility] Comment on above: Performed By: #### L 100.0500, L500.4050 #### [facility] [address] [place], [address] Emergency Department Summary on 01-18-2025 Emergency Department Summary [facility] Medical Records Department [address] [place] [address] Emergency Department Summary 01/18/25 MR#: [id number] Acct: [id number] Name: ARIEL NGUYEN Rep #: [id number] : 1960 64 From: Ulysses Christian MD PCP: [employer]ine [employer] PA-C Status:REG ER Location: ED HPI History of Present Illness Chief Complaint: Nausea/Vomiting Narrative Narrative: 64-year-old female past medical history of of diverticulosis and gastroparesis/irritable bowel presents with nausea and vomiting that she has had since 430 yesterday evening. Her partner states that she made dinner last night and used olive oil mixed with vegetables. They state that sometimes greasy foods can set off her gastroparesis. She has had multiple episodes of emesis and is now currently dry heaving. She states she is not having any abdominal pain, and she had a large bowel movement earlier, no diarrhea, no fevers or chills. She is extremely nauseated. She has ondansetron at home which is ineffective in treating her nausea. No exacerbating or alleviating factors. She states she has had to go to the emergency department previously when she lived in [place] and has received Haldol in the past. That has been helpful to her. She has not established with any primary care provider in the area as of yet. She presents mainly because of the nausea and dry heaving. She denies any chest pain or shortness of breath or other symptoms. PFSH PFS Medical History Right shoulder pain Home Medications ???Medication ???Instructions ???Recorded ???Last Taken ???Type escitalopram oxalate 20 mg tablet 20 mg PO DAILY 10/07/23 Unknown H istory (Lexapro) hydroxychloroquine 200 mg tablet 200 mg PO DAILY 10/07/23 Unknown H istory (Plaquenil) hydroxyzine HCl 10 mg tablet 10 mg PO ONCE 10/07/23 Unknown His tory levothyroxine 88 mcg capsule 88 mcg PO DAILY 10/07/23 Unknown H istory losartan 25 mg tablet 25 mg PO DAILY 10/07/23 Unknown Hi story promethazine 25 mg rectal 25 mg VT Q6H PRN nausea and Unknown Rx suppository vomiting #12 ea Allergy/AdvReac Type Severity Reaction Status Date / Time clindamycin AdvReac Other Verified 01/18/25 07:49 Penicillins AdvReac Other Verified 01/18/25 07:49 Sulfa (Sulfonamide AdvReac Other Verified 01/18/25 07:49 Antibiotics) Family History Father Hypertension CVA (cerebral vascular accident) Myocardial infarction Arthritis Mother Arthritis Cancer Sister Hypertension Arthritis Cancer Surgical History H/O thumb surgery H/O wrist surgery Social History household members: significant other Smoking Status: Former smoker alcohol intake: never what type of physical activity do you participate in: walking ROS ROS ED ROS Narrative Review of systems positive for nausea, vomiting, and dry heaving. No fevers or chills, no problems with bowel movements, no diarrhea. No hematemesis. EXAM Physical Exam Narrative Exam Narrative: Afebrile. Vital signs noted. Nontoxic-appearing. Cardiovascular examination reveals a regular rate and rhythm. Positive murmur. Lungs clear to auscultation bilaterally. Abdomen is soft and nontender without guarding or rebound. Positive bowel sounds. Neurological examination nonfocal, nonlateralizing. Slightly tacky mucous membranes orally. Const Vital Signs: 01/18/25 07:47 01/18/25 10:09 01/18/25 12:46 Temperature 97.9 F 98.8 F Temperature Source Temporal Oral Pulse Rate 81 77 97 Respiratory Rate 18 14 Blood Pressure 185/77 H 182/71 H 158/73 H Blood Pressure Mean 113 108 101 Pulse Ox 100 97 Oxygen Delivery Method Room Air Room Air MDM MDM MDM Narrative Medical decision making narrative: The differential diagnosis includes but not limited to gastroparesis versus irritable bowel syndrome versus pancreatitis versus diverticulitis versus bowel obstruction. History and physical does not support bowel obstruction. I do not feel that she needs any imaging currently. With concern for dehydration, she will be bolused normal saline and CBC, CMP, and lipase will be checked to help rule out pancreatitis. I reviewed her laboratory work and she has normal white count of 6.7 with hemoglobin 14.8, hematocrit 41.5, platelet count 248. CMP is significant for slightly elevated anion gap with BUN of 20 and creatinine 0.93. Glucose slightly elevated at 209. No think she has diabetic ketoacidosis. AST slightly elevated at 39 with ALT at 41 and alk phos 120 which may be from her vomiting. Lipase is normal at 32 so I doubt pancreatitis. She is not having abdominal pain so I d (more content not included)... Normal [facility] Eosinophil percentageOrdered By: Ulysses Christian on 01-18-2025 Eosinophils/100 WBC (Bld) 0.0 % 0-5 [facility] Erythrocyte distribution wid th ratioOrdered By: Ulysses Christian on 01-18-2025 Erythrocyte distribution width (RBC) [Ratio] 13.2 % 11.6-14.6 [facility] Erythrocyte distribution wid th standard deviationOrdered By: Ulysses Christian on 01-18-2025 Erythrocyte distribution width (RBC) [Ratio] 39.6 fl 35.1-43.9 [facility] Glomerular filtration rate ( GFR) estimation/1.73 sq m using serum, plasma, or whole bOrdered By: Ulysses Christian on 01-18-2025 GFR/1.73 sq M.predicted among non-blacks MDRD (S/P/Bld) [Vol rate/Area] 69 mL/min/{1.73_m2} >60 [facility] Comment on above: mL/min/1.73m2 CKD-EP I Creatinine Equation (2020) Hematocrit Auto (Bld) [Volum e fraction]Ordered By: Ulysses Christian on 01-18-2025 Hematocrit (Bld) [Volume fraction] 41.5 % 37-47 [facility] Hemoglobin measurementOrdere d By: Ulysses Christian on 01-18-2025 Hemoglobin (Bld) [Mass/Vol] 14.8 g/dL 12.0-15.0 [facility] Immature granulocytes/100 WB C Auto (Bld)Ordered By: Ulysses Christian on 01-18-2025 Immature granulocytes/100 WBC (Bld) 0.500 % 0.0-0.9 [facility] Comment on above: IG% - Immature Granu locytes (promyelocytes, myelocytes and metamyelocytes) > 1% indicates that a LEFT SHIFT is Present. Laboratory - Chemistry and C hemistry - challengeOrdered By: Ulysses Christian on 01-18-2025 AST [Catalytic activity/Vol] 39 U/L High <32 [facility] Lipaseon 01-18-2025 Lipase [Catalytic activity/Vol] 32 U/L Normal 13-75 [facility] Comment on above: Result Comment: Kristina jose note: LIPASE revised reference range effective 22. New Lipase methodology. Expected to produce lower values than the previous assay method. NEW Reference Range: 13 - 75 U/L Performed By: #### L 100.0500, L500.4050 #### [facility] Laboratory [facility] [place], [address] Lipase measurementOrdered By : Ulysses Christian on 01-18-2025 Lipase [Catalytic activity/Vol] 32 U/L 13-75 [facility] Comment on above: Please note:LIPASE r evised reference range effective 22. New Lipase methodology. Expected to produce lower values than the previous assay method. NEW Reference Range: 13 - 75 U/L MCV (mean corpuscular volume ) determinationOrdered By: Ulysses Christian on 01-18-2025 MCV (RBC) [Entitic vol] 82.7 fL 81-99 [facility] Mean corpuscular hemoglobin (MCH) determinationOrdered By: Ulysses Christian on 01-18-2025 MCH (RBC) [Entitic mass] 29.5 pg 27.0-32.0 [facility] Mean corpuscular hemoglobin concentration (MCHC) determinationOrdered By: Ulysses Christian on 01-18-2025 MCHC (RBC) [Mass/Vol] 35.7 g/dL 32-36 [facility] Mean platelet volume determi nationOrdered By: Ulysses Christian on 01-18-2025 Platelet mean volume (Bld) [Entitic vol] 10.1 fL 6.2-12.0 [facility] Monocyte percentageOrdered B y: Ulysses Christian on 01-18-2025 Monocytes/100 WBC (Bld) 2.6 % 0-10 [facility] Neutrophil percentageOrdered By: Ulysses Christian on 01-18-2025 Neutrophils/100 WBC (Bld) 89.8 % High 47-70 [facility] Nucleated red blood cell per centageOrdered By: Ulysses Christian on 01-18-2025 Nucleated RBC/100 WBC (Bld) [Ratio] 0 % 0-5 [facility] Platelet countOrdered By: Alex Christian on 01-18-2025 Platelets (Bld) [#/Vol] 248 10*3/uL 150-450 [facility] Potassium measurement (mass/ volume)Ordered By: Ulysses Christian on 01-18-2025 Potassium (Unsp spec) [Mass/Vol] 4.0 mmol/L 3.3-5.1 [facility] RBC Auto (Bld) [#/Vol]Ordere d By: Ulysses Christian on 01-18-2025 RBC (Bld) [#/Vol] 5.02 10*6/uL 4.2-5.4 [facility] Serum creatinine measurement (mass/volume)Ordered By: Ulysses Christian on 01-18-2025 Creatinine [Mass/Vol] 0.93 mg/dL 0.70-1.20 [facility] Serum globulin measurementOr dered By: Ulysses Christian on 01-18-2025 Globulin (S) [Mass/Vol] 3.3 g/dL 2.2-4.2 [facility] Serum glucose measurement (m ass/volume)Ordered By: Ulysses hCristian on 01-18-2025 Glucose [Mass/Vol] 209 mg/dL High 70-99 [facility] Serum or plasma alanine fuentes otransferase (ALT) measurementOrdered By: Ulysses Christian on 01-18-2025 ALT [Catalytic activity/Vol] 41 U/L High <35 [facility] Serum or plasma albumin sami urement (mass/volume)Ordered By: Ulysses Christian on 01-18-2025 Albumin [Mass/Vol] 5.0 g/dL High 3.4-4.8 [facility] Serum or plasma albumin/glob ulin mass ratioOrdered By: Ulysses Christian on 01-18-2025 Albumin/Globulin [Mass ratio] 1.5 {ratio} 0.9-2.4 [facility] Serum or plasma alkaline fam sphatase measurementOrdered By: Ulysses Christian on 01-18-2025 ALP [Catalytic activity/Vol] 120 U/L High 35-104 [facility] Serum or plasma calcium sami urement (mass/volume)Ordered By: Ulysses Christian on 01-18-2025 Calcium [Mass/Vol] 10.3 mg/dL 7.6-11.0 [facility] Serum or plasma urea nitroge n measurement (mass/volume)Ordered By: Ulysses Christian on 01-18-2025 Urea nitrogen [Mass/Vol] 20 mg/dL High 4-19 [facility] Sodium levelOrdered By: Ulysses Christian on 01-18-2025 Sodium [Moles/Vol] 141 mmol/L 133-145 [facility] Total proteinOrdered By: Estee Christian on 01-18-2025 Protein [Mass/Vol] 8.3 g/dL 5.9-8.4 [facility] White blood cell (WBC) count Ordered By: Ulysses Christian on 01-18-2025 WBC (Bld) [#/Vol] 6.7 10*3/uL 4.4-11.0 [facility] HCV Ab Ql (S)on 01-15-2025 Interpretation and review of laboratory results Normal [facility] HEPATITIS C ANTIBODY IA WITH CONFIRMATIONon 01-15-2025 HCV Ab Ql (S) Negative Negative [facility] Comment on above: The result suggests no evidence of infection with Hepatitis C virus. Should recent infection be suspected, repeat testing may be considered 4-6 weeks after this draw. HIV 1+2 Ab IA Qlon HIV 1 and 2 Ab IA.rapid Nom (S/P/Bld) [facility] Comment on above: Test not indicated. HIV 1+2 Ab+HIV1 p24 Ag IA Ql Non-Reactive Nonreactive [facility] HIV immunoassay testing algorithm interpretation (S/P/Bld) [Interp] [facility] Comment on above: No evidence of HIV-1 or HIV-2 infection. Should recent infection be suspected, repeat testing may be considered 2-3 weeks after this draw. [facility] Rev. Code 3701.243(E): This information has been [...] release of HIV test results or diagnoses. [facility] CNOVon 01-14-2025 CNOV Office Visit (INTMWS ) ARIEL NGUYEN ([id number]) 1960 F Date Time Provider Department 01/14/25 8:00 AM CARRILLO JACQUES INTMWS During your visit today, we recorded the following information about you: Pulse Respiration Blood pressure Weight Normal [facility] HCV Ab Ser Qlon 01-14-2025 HCV Ab Ql (S) Negative Normal Negative [facility] Comment on above: Order Comment: Speci men Type: BLOOD SPECIMENOrdering Facility: [facility] Address: [address] [place] [address] Result Comment: The result suggests no evidence of infection with Hepatitis C virus. Should recent infection be suspected, repeat testing may be considered 4-6 weeks after this draw. Performed By: #### 1 6128-1 ####[facility] [id number] [place] [address] [place] HIV 1+2 Ab IA Qlon 5 HIV 1 and 2 Ab IA.rapid Nom (S/P/Bld) Normal [facility] Comment on above: Order Comment: Speci men Type: BLOOD SPECIMEN [facility]ing Facility: [facility] Address: [address] [place] [address] Result Comment: Test not indicated. Performed By: #### 5 7021-8 #### [facility] CLIA [id number] [address] [place] [address] [facility] HIV 1+2 Ab+HIV1 p24 Ag IA Ql Non-Reactive Normal Nonreactive [facility] Comment on above: Order Comment: Speci men Type: BLOOD SPECIMEN [facility]ing Facility: [facility] Address: [address] [place] [address] Performed By: #### 5 7021-8 #### [facility] CLIA [id number] [address] [place] [address] [facility] [place] HIV immunoassay testing algorithm interpretation (S/P/Bld) [Interp] Normal [facility] Comment on above: Order Comment: Speci opal Type: BLOOD SPECIMEN [facility]: [facility] Address: [address] [place] [address] Result Comment: No e vidence of HIV-1 or HIV-2 infection. Should recent infection be suspected, repeat testing may be considered 2-3 weeks after this draw. [facility] Rev. Code 3701.243(E): This information has been [...] results or diagnoses. Performed By: #### 5 7021-8 #### [facility] CLIA [id number] [address] [place] [address] [place] [address] [place] AMELIA SCREENING W TOMOon 01-14 AMELIA SCREENING W KELVIN * * *Final Report* * * DATE OF EXAM: Jan 14 2025 1:22PM [id number] - AMELIA SCREENING W KELVIN / PROCEDURE REASON: Encounter for screening mammogram for malignant neoplasm of breast * * * * Physician Interpretation * * * * RESULT: [facility] [address] [place] [address] #[id number] - AMELIA SCREENING W KELVIN HISTORY: 64 year-old patient presents for screening. Patient is asymptomatic in both breasts. Patient states no personal history of breast cancer. COMPARISON STUDIES: The present examination has been compared to prior imaging studies dated 03/26/2017 (mammogram) and 11/29/2022 (mammogram). MAMMOGRAM TECHNIQUE: The study was acquired using full field digital technology and interpreted from soft copy. Digital Breast Tomosynthesis (DBT) images were obtained and used to assist in the interpretation of this examination. MAMMOGRAM FINDINGS: The breasts are almost entirely fatty. No suspicious masses, calcifications or other abnormalities are seen in either breast. There are no significant interval changes. IMPRESSION: There is no mammographic evidence of malignancy in either breast. Routine screening mammogram is recommended. Annual mammogram will be due in 1 year. BI-RADS Category 1: Negative RISK: Based on the Tyrer-Cuzick (TC) risk assessment model, this patient has a 3.0% lifetime risk of developing breast cancer, meaning they are at average risk for developing breast cancer. However, this is only an estimate based on available history provided on the patient's questionnaire. We encourage all patients to talk with their providers about these results, further recommendations for managing breast health, and appropriate supplemental screening options if the patient has dense breast tissue. Interpreting Radiologist: Sabine Morris M.D. Electronically signed on: 01/18/2025 Network Operations Analyst: ELIZA Transcribe Date/Time: Jan 14 2025 1:13P Dictated by: SABINE MORRIS MD This examination was interpreted and the report reviewed and electronically signed by: SABINE MORRIS MD on Jan 18 2025 12:41PM EST [id number] Normal [facility] metabolic 2000 panelon 12-30-2024 Albumin [Mass/Vol] 4.7 g/dL 3.9 - 4.9 g/dL [facility] ALP [Catalytic activity/Vol] 137 U/L High 34 - 123 U/L [facility] ALT [Catalytic activity/Vol] 37 U/L 7 - 38 U/L [facility] Anion gap [Moles/Vol] 17 mmol/L High 8 - 15 mmol/L [facility] AST [Catalytic activity/Vol] 31 U/L 13 - 35 U/L [facility] Bilirubin [Mass/Vol] 0.5 mg/dL 0.2 - 1 .3 mg/dL [facility] Calcium [Mass/Vol] 10.2 mg/dL 8.5 - 10. 2 mg/dL [facility] Chloride [Moles/Vol] 95 mmol/L Low 98 - 10 7 mmol/L [facility] CO2 [Moles/Vol] 24 mmol/L 22 - 30 mmol/L [facility] Creatinine [Mass/Vol] 0.86 mg/dL 0.58 - 0.96 mg/dL [facility] GFR/1.73 sq M.predicted among non-blacks MDRD (S/P/Bld) [Vol rate/Area] 76 mL/min/{1.73_m2} - PINF [facility] Comment on above: Estimated Glomerular Filtration Rate [...] [Mass/Vol] 87 mg/dL 74 - 99 mg/dL [facility] Comment on above: The [place] Diabete s Association (ADA) provides guidance for [...] Standards of Medical Care in Diabetes 2016, [place] Diabetes Association. Diabetes Care. 2016.39(Suppl 1). Potassium [Moles/Vol] 3.6 mmol/L Low 3.7 - 5.1 mmol/L [facility] Protein [Mass/Vol] 7.7 g/dL 6.3 - 8.0 g/dL [facility] Sodium [Moles/Vol] 136 mmol/L 136 - 144 mmol/L [facility] Urea nitrogen [Mass/Vol] 23 mg/dL High 7 - 21 mg/dL [facility] FERRITINon 12-30-2024 Ferritin [Mass/Vol] 193 ng/mL 14.7 - 2 05.1 ng/mL [facility] HbA1c (Bld)on 12-30-2024 Average glucose Estimated from glycated hemoglobin (Bld) [Mass/Vol] 117 mg/dL [facility] Comment on above: eAG: (Estimated aver age glucose) is a calculated value from HgbA1c and is guest experience representative of the average blood glucose level in the last 2-3 month period. HbA1c (Bld) [Mass fraction] 5.7 % High 4.3 - 5.6 % [facility] Comment on above: [employer] Diabetes As sociation guidelines indicate that patients with HgbA1c in the range 5.7-6.4% are at increased risk for development of diabetes, and intervention by lifestyle modification may be beneficial. HgbA1c greater or equal to 6.5% is considered diagnostic of diabetes. Interpretation and review of laboratory results Abnormal [facility] Iron and Iron binding capaci ty panelon 12-30-2024 Interpretation and review of laboratory results Normal [facility] Iron [Mass/Vol] 71 ug/dL 41 - 186 ug/dL [facility] Iron binding capacity [Mass/Vol] 289 ug/dL 232 - 386 ug/dL [facility] Iron/TIBC [Molar ratio] 24.6 % 15.0 - 57.0 % [facility] Lipid 1996 panelon 5 Cholesterol [Mass/Vol] 130 mg/dL NINF - 200 mg/dL [facility] Comment on above: <200 mg/dL, Desirabl e 200-239 mg/dL, Borderline high >239 mg/dL, High Cholesterol in HDL [Mass/Vol] 53 mg/dL 39 - PINF mg/dL [facility] Comment on above: 40-59 mg/dL, Accepta ble >59 mg/dL, High: Negative risk factor for coronary heart disease <40 mg/dL, Low: Positive risk factor for coronary heart disease Cholesterol in LDL [Mass/Vol] 57 mg/dL NINF - 100 mg/dL [facility] Comment on above: <100 mg/dL, Optimal 100-129 mg/dL, Near optimal/above optimal 130-159 mg/dL, Borderline high 160-189 mg/dL, High >189 mg/dL, Very high Secondary prevention optimal LDL Cholesterol levels are recommended to be <70 mg/dL LDL cholesterol is calculated using the Lora-NIH equation. Cholesterol in LDL/Cholesterol in HDL [Mass ratio] 1.08 {ratio} NINF - 2.54 [facility] Comment on above: Reference: 1. National Cholesterol Education Program ATP III Guideline At-A-Glance Quick Desk Reference: National Heart, Lung, and Blood [place]. National Institutes of Health. 2001: NIH Publication No. 01-3305. 2. An International Atherosclerosis Society position paper: global recommendations for the management of dyslipidemia: executive summary, Atherosclerosis. 2014: 232(2):410-413. Cholesterol in VLDL [Mass/Vol] 15 mg/dL NINF - 30 mg/dL [facility] Cholesterol non HDL [Mass/Vol] 77 mg/dL NINF - 130 mg/dL [facility] Comment on above: <130 mg/dL, Optimal 130-159 mg/dL, Near optimal/above optimal 160-189 mg/dL, Borderline high 190-219 mg/dL, High >219 mg/dL, Very high Secondary prevention optimal non HDL Cholesterol levels are recommended to be <100 mg/dL Cholesterol.total/Chol esterol in HDL [Mass ratio] 2.45 {ratio} NINF - 5.10 [facility] Fasting Time 6 hrs [facility] Comment on above: pt had cup of coffee w/ milk around 10am Triglyceride [Mass/Vol] 107 mg/dL [facility] - 150 mg/dL [facility] Comment on above: <150 mg/dL, Normal 150-199 mg/dL, Borderline high 200-499 mg/dL, High >499 mg/dL, Very high NT PRO BNPon 12-30-2024 Natriuretic peptide.B prohormone N-Terminal [Mass/Vol] 388 pg/mL High NINF - 125 pg/mL [facility] No Panel Informationon 12-30 Interpretation and review of laboratory results Normal [facility] Interpretation and review of laboratory results Abnormal [facility] THYROID STIMULATING HORMONEo n 12-30-2024 TSH Qn 0.804 m[IU]/L [facility] CBC W Auto Differential pane l (Bld)on 12-29-2024 Basophils (Bld) [#/Vol] 0.06 10*3/uL [facility] Basophils/100 WBC (Bld) 1 % [facility] Differential cell count method Nom (Bld) Auto [facility] Eosinophils (Bld) [#/Vol] 0.22 10*3/uL [facility] Eosinophils/100 WBC (Bld) 3.6 % [facility] Erythrocyte distribution width (RBC) [Ratio] 13.1 % 11.5 - 15.0 % [facility] Hematocrit (Bld) [Volume fraction] 40.7 % 36.0 - 46.0 % [facility] Hemoglobin (Bld) [Mass/Vol] 14 g/dL 11.5 - 15.5 g/dL [facility] Immature granulocytes (Bld) [#/Vol] [facility] Immature granulocytes/100 WBC (Bld) 0.3 % [facility] Lymphocytes (Bld) [#/Vol] 1.55 10*3/uL [facility] Lymphocytes/100 WBC (Bld) 25.2 % [facility] MCH (RBC) [Entitic mass] 28.7 pg 26.0 - 34.0 pg [facility] MCHC (RBC) [Mass/Vol] 34.4 g/dL 30.5 - 36.0 g/dL [facility] MCV (RBC) [Entitic vol] 83.6 fL 80.0 - 100.0 fL [facility] Monocytes (Bld) [#/Vol] 0.33 10*3/uL NINF [facility] Monocytes/100 WBC (Bld) 5.4 % [facility] Neutrophils (Bld) [#/Vol] 3.96 10*3/uL [facility] Neutrophils/100 WBC (Bld) 64.5 % [facility] Nucleated RBC (Bld) [#/Vol] NINF [facility] Nucleated RBC/100 WBC (Bld) [Ratio] 0 % /100 WBC [facility] Platelet mean volume (Bld) [Entitic vol] 10.1 fL 9.0 - 12.7 fL [facility] Platelets (Bld) [#/Vol] 197 10*3/uL [facility] RBC (Bld) [#/Vol] 4.87 10*6/uL 3.90 - 5.2 0 m/uL [facility] WBC (Bld) [#/Vol] 6.14 10*3/uL [facility] Basophils (Bld) [#/Vol] 0.06 10*3/uL Normal <0.11 [facility] Comment on above: Order Comment: Speci men Type: BLOOD SPECIMEN [facility] Address: [address] [place] [address] Performed By: #### 5 7021-8 #### [facility] CLIA [id number] [address] [place] [address] [place] Basophils/100 WBC (Bld) 1.0 % Normal [facility] Comment on above: Order Comment: Speci men Type: BLOOD SPECIMEN [facility] Address: [address] [place] [address] Performed By: #### 5 7021-8 #### [facility] CLIA [id number] [address] [place] [address] [place] Differential cell count method Nom (Bld) Auto Normal [facility] Comment on above: Order Comment: Speci men Type: BLOOD SPECIMEN [facility] Address: [address] [place] [address] Performed By: #### 5 7021-8 #### [facility] CLIA [id number] [address] [place] [address] [place] Eosinophils (Bld) [#/Vol] 0.22 10*3/uL Normal <0.46 [facility] Comment on above: Order Comment: Speci men Type: BLOOD SPECIMEN [facility] Address: [address] [place] [address] Performed By: #### 5 7021-8 #### [facility] CLIA [id number] [address] [place] [address] [place] Eosinophils/100 WBC (Bld) 3.6 % Normal [facility] Comment on above: Order Comment: Speci men Type: BLOOD SPECIMEN [facility] Address: [address] [place] [address] Performed By: #### 5 7021-8 #### [facility] CLIA [id number] [address] [place] [address] [place] Erythrocyte distribution width (RBC) [Ratio] 13.1 % Normal 11.5-15.0 [facility] Comment on above: Order Comment: Speci men Type: BLOOD SPECIMEN [facility] Address: [address] [place] [address] Performed By: #### 5 7021-8 #### [facility] CLIA [id number] [address] [place] [address] [place] Hematocrit (Bld) [Volume fraction] 40.7 % Normal 36.0-46.0 [facility] Comment on above: Order Comment: Speci men Type: BLOOD SPECIMEN [facility] Address: [address] [place] [address] Performed By: #### 5 7021-8 #### [facility] CLIA [id number] [address] [place] [address] [place] Hemoglobin (Bld) [Mass/Vol] 14.0 g/dL Normal 11.5-15.5 [facility] Comment on above: Order Comment: Speci men Type: BLOOD SPECIMEN [facility] Address: [address] [place] [address] Performed By: #### 5 7021-8 #### [facility] CLIA [id number] [address] [place] [address] [place] Immature granulocytes (Bld) [#/Vol] 10*3/uL Normal <0.10 [facility] Comment on above: Order Comment: Speci men Type: BLOOD SPECIMEN [facility] Address: [address] [place] [address] Performed By: #### 5 7021-8 #### [facility] CLIA [id number] [address] [place] [address] [place] Immature granulocytes/100 WBC (Bld) 0.3 % Normal [facility] Comment on above: Order Comment: Speci men Type: BLOOD SPECIMEN [facility] Address: [address] [place] [address] Performed By: #### 5 7021-8 #### [facility] CLIA [id number] [address] [place] [address] [place] Lymphocytes (Bld) [#/Vol] 1.55 10*3/uL Normal 1.00-4.00 [facility] Comment on above: Order Comment: Speci men Type: BLOOD SPECIMEN [facility] Address: [address] [place] [address] Performed By: #### 5 7021-8 #### [facility] CLIA [id number] [address] [place] [address] [place] Lymphocytes/100 WBC (Bld) 25.2 % Normal [facility] Comment on above: Order Comment: Speci men Type: BLOOD SPECIMEN [facility] Address: [address] [place] [address] Performed By: #### 5 7021-8 #### [facility] CLIA [id number] [address] [place] [address] [place] MCH (RBC) [Entitic mass] 28.7 pg Normal 26.0-34.0 [facility] Comment on above: Order Comment: Speci men Type: BLOOD SPECIMEN [facility] Address: [address] [place] [address] Performed By: #### 5 7021-8 #### [facility] CLIA [id number] [address] [place] [address] [place] MCHC (RBC) [Mass/Vol] 34.4 g/dL Normal 30.5-36.0 [facility] Comment on above: Order Comment: Speci men Type: BLOOD SPECIMEN [facility] Address: [address] [place] [address] Performed By: #### 5 7021-8 #### [facility] CLIA [id number] [address] [place] [address] [place] MCV (RBC) [Entitic vol] 83.6 fL Normal 80.0-100.0 [facility] Comment on above: Order Comment: Speci men Type: BLOOD SPECIMEN [facility] Address: [address] [place] [address] Performed By: #### 5 7021-8 #### [facility] CLIA [id number] [address] [place] [address] [place] Monocytes (Bld) [#/Vol] 0.33 10*3/uL Normal <0.87 [facility] Comment on above: Order Comment: Speci men Type: BLOOD SPECIMEN [facility] Address: [address] [place] [address] Performed By: #### 5 7021-8 #### [facility] CLIA [id number] [address] [place] [address] [place] Monocytes/100 WBC (Bld) 5.4 % Normal [facility] Comment on above: Order Comment: Speci men Type: BLOOD SPECIMEN [facility] Facility: [facility] Address: [address] [place] [address] Performed By: #### 5 7021-8 #### [facility] CLIA [id number] [address] [place] [address] [place] Neutrophils (Bld) [#/Vol] 3.96 10*3/uL Normal 1.45-7.50 [facility] Comment on above: Order Comment: Speci men Type: BLOOD SPECIMEN [facility] Facility: [facility] Address: [address] [place] [address] Performed By: #### 5 7021-8 #### [facility] CLIA [id number] [address] [place] [address] [place] Neutrophils/100 WBC (Bld) 64.5 % Normal [facility] Comment on above: Order Comment: Speci men Type: BLOOD SPECIMEN [facility] Address: [address] [place] [address] Performed By: #### 5 7021-8 #### [facility] CLIA [id number] [address] [place] [address] [place] Nucleated RBC (Bld) [#/Vol] 10*3/uL Normal <0.01 [facility] Comment on above: Order Comment: Speci men Type: BLOOD SPECIMEN Ordering Facility: [facility] Address: [address] [place] [address] Performed By: #### 5 7021-8 #### [facility] CLIA [id number] [address] [place] [address] [place] Nucleated RBC/100 WBC (Bld) [Ratio] 0.0 /100 WBC Normal [facility] Comment on above: Order Comment: Speci men Type: BLOOD SPECIMEN Ordering Facility: [facility] Address: [address] [place] [address] Performed By: #### 5 7021-8 #### [facility] CLIA [id number] [address] [place] [address] [place] Platelet mean volume (Bld) [Entitic vol] 10.1 fL Normal 9.0-12.7 [facility] Comment on above: Order Comment: Speci men Type: BLOOD SPECIMEN Ordering Facility: [facility] Address: [address] [place] [address] Performed By: #### 5 7021-8 #### [facility] CLIA [id number] [address] [place] [address] [place] Platelets (Bld) [#/Vol] 197 10*3/uL Normal 150-400 [facility] Comment on above: Order Comment: Speci men Type: BLOOD SPECIMEN Ordering Facility: [facility] Address: [address] [place] [address] Performed By: #### 5 7021-8 #### [facility] CLIA [id number] [address] [place] [address] [place] RBC (Bld) [#/Vol] 4.87 10*6/uL Normal 3.90-5.20 [facility] Comment on above: Order Comment: Speci men Type: BLOOD SPECIMEN Ordering Facility: [facility] Address: [address] [place] [address] Performed By: #### 5 7021-8 #### [facility] CLIA [id number] [address] [place] [address] [place] WBC (Bld) [#/Vol] 6.14 10*3/uL Normal 3.70-11.00 [facility] Comment on above: Order Comment: Speci men Type: BLOOD SPECIMEN Ordering Facility: [facility] Address: [address] [place] [address] Performed By: #### 5 7021-8 #### [facility] CLIA [id number] [address] [place] [address] [facility] CNOVon 12-29-2024 CNOV Office Visit (DIEGO PINA MAI) ARIEL NGUYEN ([id number]) 1960 F Date Time Provider Department 12/29/24 1:15 PM JACQUELINE LOVE CHF LU During your visit today, we recorded the following information about you: Pulse Blood pressure Weight Height 61/minute 126/64 85.3 kg 1.676 m Jacqueline Love MD 01/02/2025 3:50 PM Signed Heart, Vascular and Thoracic [place] [facility] For Heart Failure SECTION OF HEART FAILURE and CARDIAC TRANSPLANT MEDICINE OUTPATIENT VISIT DATE December 29, 2024 OUTPATIENT VISIT TYPE New Patient PRIMARY CARE PHYSICIAN: Sabine Power (Amarilis) [address] [address] CHIEF COMPLAINT: Establish care Ariel Nguyen is a 64 year old female from [place], [place], accompanied by her partner. PMHx includes chronic diastolic HF, CAD, NSTEMI s/p CABGx3 08/12/2024 (KOCH-LAD, SVG-RI, SVG-OM), severe MR, HTN, RHONDA with CPAP Was there a cardiac hospitalization/ED visit in the past year: Yes: When and where: 10/09-10/11/2024 [facility], 08/08-08/16/2024 [facility] HF Nursing Assessment: Chest Pain: no [...] a 64-year-old female with a history of OK, status post-CABG, and mitral valve regurgitation, presenting for evaluation of dyspnea and mitral valve regurgitation. The patient experienced an OK in July while at [place], [place], and underwent a triple CABG at [facility]. During the procedure, the mitral valve [...] doses of her diuretics since leaving the [place]. She has a history of severe nausea and vomiting, which has improved since her cardiac surgery. She recently underwent a colonoscopy and endoscopy at [place], which were unremarkable. She denies any history [...] Anaphylaxis, An (more content not included)... Normal [facility] Comprehensive metabolic 2000 panelon 12-29-2024 Albumin [Mass/Vol] 4.7 g/dL Normal 3.9-4.9 [facility] Comment on above: Order Comment: Meenakshii opal Type: BLOOD SPECIMEN Ordering Facility: [facility] Address: [address] [place] [address] Performed By: #### 5 7021-8 #### [facility] CLIA [id number] [address] [place] [address] [place] ALP [Catalytic activity/Vol] 137 U/L High 34-123 [facility] Comment on above: Order Comment: Romina joseph Type: BLOOD SPECIMEN Ordering Facility: [facility] Address: [address] [place] [address] Performed By: #### 5 7021-8 #### [facility] CLIA [id number] [address] [place] [address] [place] ALT [Catalytic activity/Vol] 37 U/L Normal 7-38 [facility] Comment on above: Order Comment: Speci men Type: BLOOD SPECIMEN Ordering Facility: [facility] Address: [address] [place] [address] Performed By: #### 5 7021-8 #### [facility] CLIA [id number] [address] [place] [address] [place] Anion gap [Moles/Vol] 17 mmol/L High 8-15 [facility] Comment on above: Order Comment: Speci men Type: BLOOD SPECIMEN Ordering Facility: [facility] Address: [address] [place] [address] Performed By: #### 5 7021-8 #### [facility] CLIA [id number] [address] [place] [address] [place] AST [Catalytic activity/Vol] 31 U/L Normal 13-35 [facility] Comment on above: Order Comment: Speci men Type: BLOOD SPECIMEN Ordering Facility: [facility] Address: [address] [place] [address] Performed By: #### 5 7021-8 #### [facility] CLIA [id number] [address] [place] [address] [place] Bilirubin [Mass/Vol] 0.5 mg/dL Normal 0.2-1.3 [facility] Comment on above: Order Comment: Speci men Type: BLOOD SPECIMEN Ordering Facility: [facility] Address: [address] [place] [address] Performed By: #### 5 7021-8 #### [facility] CLIA [id number] [address] [place] [address] [place] Calcium [Mass/Vol] 10.2 mg/dL Normal 8.5-10.2 [facility] Comment on above: Order Comment: Speci men Type: BLOOD SPECIMEN Ordering Facility: [facility] Address: [address] [place] [address] Performed By: #### 5 7021-8 #### [facility] CLIA [id number] [address] [place] [address] [place] Chloride [Moles/Vol] 95 mmol/L Low 98-107 [facility] Comment on above: Order Comment: Speci men Type: BLOOD SPECIMEN Ordering Facility: [facility] Address: [address] [place], [place] [address] Performed By: #### 5 7021-8 #### [facility] CLIA [id number] [address] [place] [address] [place] CO2 [Moles/Vol] 24 mmol/L Normal 22-30 [facility] Comment on above: Order Comment: Speci men Type: BLOOD SPECIMEN Ordering Facility: [facility] Address: [address] [place] [address] Performed By: #### 5 7021-8 #### [facility] CLIA [id number] [address] [place] [address] [place] Creatinine [Mass/Vol] 0.86 mg/dL Normal 0.58-0.96 [facility] Comment on above: Order Comment: Speci men Type: BLOOD SPECIMEN Ordering Facility: [facility] Address: [address] [place] [address] Performed By: #### 5 7021-8 #### [facility] IA [id number] [address] [place] [address] [place] eGFRcr SerPlBld CKD-EPI 2020 76 mL/min/1.73m??? Normal >=60 [facility] Comment on above: Order Comment: Speci men Type: BLOOD SPECIMEN Ordering Facility: [facility] Address: [address] [place] [address] Result Comment: Cecy mated Glomerular Filtration Rate [...] reflect actual GFR. Performed By: #### 5 7021-8 #### [facility] CLIA [id number] [address] [place] [address] [place] Glucose [Mass/Vol] 87 mg/dL Normal 74-99 [facility] Comment on above: Order Comment: Speci men Type: BLOOD SPECIMEN Ordering Facility: [facility] Address: [address] [place] [address] Result Comment: The [place] Diabetes Association (ADA) provides guidance for cutoff [...] Standards of Medical Care in Diabetes 2016, [place] Diabetes Association. Diabetes Care. 2016.39(Suppl 1). Performed By: #### 5 7021-8 #### [facility] CLIA [id number] [address] [place] [address] [place] Potassium [Moles/Vol] 3.6 mmol/L Low 3.7-5.1 [facility] Comment on above: Order Comment: Speci men Type: BLOOD SPECIMEN Ordering Facility: [facility] Address: [address] [place] [address] Performed By: #### 5 7021-8 #### [facility] CLIA [id number] [address] [place] [address] [place] Protein [Mass/Vol] 7.7 g/dL Normal 6.3-8.0 [facility] Comment on above: Order Comment: Speci men Type: BLOOD SPECIMEN Ordering Facility: [facility] Address: [address] [place] [address] Performed By: #### 5 7021-8 #### [facility] CLIA [id number] [address] [place] [address] [place] Sodium [Moles/Vol] 136 mmol/L Normal 136-144 [facility] Comment on above: Order Comment: Speci men Type: BLOOD SPECIMEN Ordering Facility: [facility] Address: [address] [place] [address] Performed By: #### 5 7021-8 #### [facility] IA [id number] [address] [place] [address] [place] Urea nitrogen [Mass/Vol] 23 mg/dL High 7- [facility] Comment on above: Order Comment: Speci men Type: BLOOD SPECIMEN Ordering Facility: [facility] Address: [address] [place] [address] Performed By: #### 5 7021-8 #### [facility] IA [id number] [address] [place] [address] [place] Ferritin SerPl-mCncon 2024 Ferritin [Mass/Vol] 193.0 ng/mL Normal 14.7-205.1 [facility] Comment on above: Order Comment: Speci men Type: BLOOD SPECIMEN Ordering Facility: [facility] Address: [address] [place] [address] Performed By: #### 5 7021-8 #### [facility] IA [id number] [address] [place] [address] [place] HbA1c (Bld)on 12-29-2024 Average glucose Estimated from glycated hemoglobin (Bld) [Mass/Vol] 117 mg/dL Normal [facility] Comment on above: Order Comment: Speci men Type: BLOOD SPECIMEN Ordering Facility: [facility] Address: [address] [place] [address] Result Comment: eAG: (Estimated average glucose) is a calculated value from HgbA1c and is guest experience representative of the average blood glucose level in the last 2-3 month period. Performed By: #### 5 5454-3 #### [facility] IA [id number] [address] [place] [address] [place] HbA1c (Bld) [Mass fraction] 5.7 % High 4.3-5.6 [facility] Comment on above: Order Comment: Speci men Type: BLOOD SPECIMEN Ordering Facility: [facility] Address: [address] [place], [place] [address] Result Comment: [place] Diabetes Association guidelines indicate that patients with HgbA1c in the range 5.7-6.4% are at increased risk for development of diabetes, and intervention by lifestyle modification may be beneficial. HgbA1c greater or equal to 6.5% is considered diagnostic of diabetes. Performed By: #### 5 5454-3 #### [facility] CLIA [id number] [address] [place] [address] [place] Iron and Iron binding capaci ty panelon 12-29-2024 Iron [Mass/Vol] 71 ug/dL Normal 41-186 [facility] Comment on above: Order Comment: Speci men Type: BLOOD SPECIMEN Ordering Facility: [facility] Address: [address] [place] [address] Performed By: #### 5 7021-8 #### [facility] CLIA [id number] [address] [place] [address] [place] Iron binding capacity [Mass/Vol] 289 ug/dL Normal 232-386 [facility] Comment on above: Order Comment: Speci men Type: BLOOD SPECIMEN Ordering Facility: [facility] Address: [address] [place] [address] Performed By: #### 5 7021-8 #### [facility] CLIA [id number] [address] [place] [address] [place] Iron/TIBC [Molar ratio] 24.6 % Normal 15.0-57.0 [facility] Comment on above: Order Comment: Speci men Type: BLOOD SPECIMEN Ordering Facility: [facility] Address: [address] [place] [address] Performed By: #### 5 7021-8 #### [facility] CLIA [id number] [address] [place], [place] [address] [place] Lipid 1996 panelon Cholesterol [Mass/Vol] 130 mg/dL Normal <200 [facility] Comment on above: Order Comment: Speci men Type: BLOOD SPECIMEN Ordering Facility: [facility] Address: [address] [place] [address] Result Comment: <200 mg/dL, Desirable 200-239 mg/dL, Borderline high >239 mg/dL, High Performed By: #### 5 7021-8 #### [facility] CLIA [id number] [address] [place] [address] [place] Cholesterol in HDL [Mass/Vol] 53 mg/dL Normal >39 [facility] Comment on above: Order Comment: Meenakshii men Type: BLOOD SPECIMEN Ordering Facility: [facility] Address: [address] [place] [address] Result Comment: 40-5 9 mg/dL, Acceptable >59 mg/dL, High: Negative risk factor for coronary heart disease <40 mg/dL, Low: Positive risk factor for coronary heart disease Performed By: #### 5 7021-8 #### [facility] CLIA [id number] [address] [place] [address] [place] Cholesterol in LDL [Mass/Vol] 57 mg/dL Normal <100 [facility] Comment on above: Order Comment: Romina opal Type: BLOOD SPECIMEN Ordering Facility: [facility] Address: [address] [place] [address] Result Comment: <100 mg/dL, Optimal 100-129 mg/dL, Near optimal/above optimal 130-159 mg/dL, Borderline high 160-189 mg/dL, High >189 mg/dL, Very high Secondary prevention optimal LDL Cholesterol levels are recommended to be <70 mg/dL LDL cholesterol is calculated using the Lora-NIH equation. Performed By: #### 5 7021-8 #### [facility] CLIA [id number] [address] [place] [address] [place] Cholesterol in LDL/Cholesterol in HDL [Mass ratio] 1.08 {ratio} Normal <2.54 [facility] Comment on above: Order Comment: Romina joseph Type: BLOOD SPECIMEN Ordering Facility: [facility] Address: [address] [place] [address] Result Comment: Refe garry: 1. National Cholesterol Education Program ATP III Guideline At-A-Glance Quick Desk Reference: National Heart, Lung, and Blood [place]. National Institutes of Health. 2001: NIH Publication No. 01-3305. 2. An International Atherosclerosis Society position paper: global recommendations for the management of dyslipidemia: executive summary, Atherosclerosis. 2014: 232(2):410-413. Performed By: #### 5 7021-8 #### [facility] CLIA [id number] [address] [place] [address] [place] Cholesterol in VLDL [Mass/Vol] 15 mg/dL Normal <30 [facility] Comment on above: Order Comment: Romina joseph Type: BLOOD SPECIMEN Ordering Facility: [facility] Address: [address] [place] [address] Performed By: #### 5 7021-8 #### [facility] CLIA [id number] [address] [place] [address] [place] Cholesterol non HDL [Mass/Vol] 77 mg/dL Normal <130 [facility] Comment on above: Order Comment: Romina joseph Type: BLOOD SPECIMEN Ordering Facility: [facility] Address: [address] [place] [address] Result Comment: <130 mg/dL, Optimal 130-159 mg/dL, Near optimal/above optimal 160-189 mg/dL, Borderline high 190-219 mg/dL, High >219 mg/dL, Very high Secondary prevention optimal non HDL Cholesterol levels are recommended to be <100 mg/dL Performed By: #### 5 7021-8 #### [facility] CLIA [id number] [address] [place] [address] [place] Cholesterol.total/Chol esterol in HDL [Mass ratio] 2.45 {ratio} Normal <5.10 [facility] Comment on above: Order Comment: Romina joseph Type: BLOOD SPECIMEN Ordering Facility: [facility] Address: [address] [place] [address] Performed By: #### 5 7021-8 #### [facility] CLIA [id number] [address] [place] [address] [place] FASTING TIME 6 hrs Normal [facility] Comment on above: Order Comment: Speci men Type: BLOOD SPECIMEN Ordering Facility: [facility] Address: [address] [place] [address] Result Comment: pt h ad cup of coffee w/ milk around 10am Performed By: #### 5 7021-8 #### [facility] CLIA [id number] [address] [place] [address] [place] Triglyceride [Mass/Vol] 107 mg/dL Normal <150 [facility] Comment on above: Order Comment: Speci men Type: BLOOD SPECIMEN Ordering Facility: [facility] Address: [address] [place] [address] Result Comment: <150 mg/dL, Normal 150-199 mg/dL, Borderline high 200-499 mg/dL, High >499 mg/dL, Very high Performed By: #### 5 7021-8 #### [facility] CLIA [id number] [address] [place] [address] [place] NT-proBNP SerPl-ncon 12-29 Natriuretic peptide.B prohormone N-Terminal [Mass/Vol] 388 pg/mL High <125 [facility] Comment on above: Order Comment: Speci men Type: BLOOD SPECIMEN Ordering Facility: [facility] Address: [address] [place] [address] Performed By: #### 5 7021-8 #### [facility] IA [id number] [address] [place] [address] [place] TSH SerPl-aCncon 12-29-2024 TSH Qn 0.804 m[IU]/L Normal 0.270-4.200 [facility] Comment on above: Order Comment: Speci men Type: BLOOD SPECIMEN Ordering Facility: [facility] Address: [address] [place] [address] Performed By: #### 5 7021-8 #### [facility] CLIA [id number] [address] [place] [address] [place] CBC + DIFFon 10-13-2023 Baso # 0.03 x10EE3/UL Normal 0.00 - 0.10 [facility] Comment on above: Performed By: #### 2 89499 #### [facility],[address] [place] [address] 22334 Basophils/100 WBC (Bld) 0.2 % Normal 0.0 - 2.0 [facility] Comment on above: Performed By: #### 2 17828 #### [facility],[address] [place] [address] 33670 CBC + DIFF Normal [facility] Comment on above: Result Comment: CBC- COMPLETE BLOOD COUNT Performed By: #### 2 53570 #### [facility],[address] [place] [address] 13571 EO # 0.04 x10EE3/UL Normal 0.00 - 0.50 [facility] Comment on above: Performed By: #### 2 08315 #### [facility],[address] [place] [address] 30593 Eosinophils/100 WBC (Bld) 0.3 % Normal 0.0 - 7.0 [facility] Comment on above: Performed By: #### 2 45962 #### [facility],[address] [place] [address] 25213 Erythrocyte distribution width (RBC) [Ratio] 14.2 % Normal 12.0 - 15.6 [facility] Comment on above: Performed By: #### 2 83303 #### [facility],[address] [place] [address] 57359 Hematocrit (Bld) [Volume fraction] 46.7 % High 34.0 - 46.0 [facility] Comment on above: Performed By: #### 2 94415 #### [facility],[address] [place] [address] 84261 Hemoglobin (Bld) [Mass/Vol] 16.3 g/dL High 12.0 - 16.0 [facility] Comment on above: Performed By: #### 2 53008 #### [facility],[address] [place] [address] Lymph # 1.38 x10EE3/UL Normal 0.80 - 2.80 [facility] Comment on above: Performed By: #### 2 30025 #### [facility],[address] [place] [address] Lymphocytes/100 WBC (Bld) 10.5 % Low 20.0 - 45.0 [facility] Comment on above: Performed By: #### 2 29973 #### [facility],[address] [place] [address] MANUAL DIFF N/A Normal [facility] Comment on above: Performed By: #### 2 87249 #### [facility],[address] [place] [address] MCH (RBC) [Entitic mass] 30 pg Normal 27 - 33 [facility] Comment on above: Performed By: #### 2 69330 #### [facility],[address] [place] [address] MCHC 35 X10 3 Normal 32 - 36 [facility] Comment on above: Performed By: #### 2 19806 #### [facility],[address] [place] [address] MCV (RBC) [Entitic vol] 87 fL Normal 80 - 99 [facility] Comment on above: Performed By: #### 2 80121 #### [facility],[address] [place] [address] Assumption # 0.83 x10EE3/UL Normal 0.20 - 1.00 [facility] Comment on above: Performed By: #### 2 08222 #### [facility],[address] [place] [address] MONOS % 6.3 % Normal 0.0 - 10.0 [facility] Comment on above: Performed By: #### 2 36163 #### [facility],[address] [place] [address] Morphology [place] (Bld) [Interp] N/A Normal [facility] Comment on above: Performed By: #### 2 75180 #### [facility],[address] [place] [address] Neut # 10.95 x10EE3/UL High 1.50 - 7.10 [facility] Comment on above: Performed By: #### 2 08508 #### [place] [address] Neutrophils/100 WBC (Bld) 82.7 % High 46.0 - 76.0 [facility] Comment on above: Performed By: #### 2 49859 #### [place] [address] PLATELET 195 x10EE3/UL Normal 150 - 450 [facility] Comment on above: Performed By: #### 2 26851 #### [place] [address] Platelet mean volume (Bld) [Entitic vol] 9.4 fL Normal 6.6 - 10.5 [facility] Comment on above: Result Comment: AUTO MATED DIFFERENTIAL Performed By: #### 2 00770 #### [facility],[address] [place] [address] RBC 5.37 x 10EE6/UL High 4.10 - 5.30 [facility] Comment on above: Performed By: #### 2 58216 #### [place] [address] WBC 13.2 x 10EE3/UL High 4.5 - 10.8 [facility] Comment on above: Performed By: #### 2 70355 #### [place] [id number] CMP with eGFRon 10-13-2023 AGE 63 years Normal [facility] Comment on above: Performed By: #### 2 [id number] #### [facility],[address] [place] [address] 16524 Albumin [Mass/Vol] 4.7 g/dL Normal 3.4 - 5.0 [facility] Comment on above: Performed By: #### 2 95976 #### [facility],[address] [place] [address] Albumin/Globulin [Mass ratio] 1.4 {ratio} Normal 0.9 - 1.6 [facility] Comment on above: Performed By: #### 2 24744 #### [facility],[address] [place] [address] 86094 ALK PHOS 80 U/L Normal 46 - 116 [facility] Comment on above: Performed By: #### 2 08840 #### [facility],[address] [place] [address] 02630 ALT [Catalytic activity/Vol] 34 U/L Normal 16 - 63 [facility] Comment on above: Performed By: #### 2 40402 #### [facility],[address] [place] [address] 00634 Anion gap [Moles/Vol] 16 mmol/L Normal 10 - 20 [facility] Comment on above: Performed By: #### 2 34077 #### [facility],[address] [place] [address] 99554 AST [Catalytic activity/Vol] 34 U/L Normal 13 - 39 [facility] Comment on above: Performed By: #### 2 19583 #### [facility],[address] [place] [address] 17552 B/C RATIO 16 ratio Normal 0 - 30 [facility] Comment on above: Performed By: #### 2 88905 #### [facility],[address] [place], [place] [id number] Bilirubin [Mass/Vol] 0.8 mg/dL Normal 0.2 - 1.0 [facility] Comment on above: Performed By: #### 2 43187 #### [facility],[address] [place] [address] 56815 Calcium [Mass/Vol] 10.1 mg/dL Normal 8.5 - 10.1 [facility] Comment on above: Performed By: #### 2 14379 #### [facility],[address] [place], [place] [id number] Chloride [Moles/Vol] 99 mmol/L Normal 98 - 107 [facility] Comment on above: Performed By: #### 2 29614 #### [facility],[address] [place], [place] [id number] CMP with eGFR Normal [facility] Comment on above: Result Comment: COMP REHENSIVE METABOLIC PANEL Performed By: #### 2 07344 #### [facility],[address] [place] [address] 84090 CO2 [Moles/Vol] 21.6 mmol/L Normal 21.0 - 32.0 [facility] Comment on above: Performed By: #### 2 59400 #### [facility],[address] [place] [address] 05221 Creatinine [Mass/Vol] 0.77 mg/dL Normal 0.55 - 1.02 [facility] Comment on above: Performed By: #### 2 63288 #### [facility],[address] [place] [address] 34234 GFR/1.73 sq M.predicted among non-blacks MDRD (S/P/Bld) [Vol rate/Area] mL/min/{1.73_m2} Normal 60 - 999 [facility] Comment on above: Performed By: #### 2 60533 #### [facility],[address] [place] [address] Result Comment: ACCO RDING TO THE NATIONAL KIDNEY DISEASE EDUCATION PROGRAM(NKDE), A NORMAL eGFR IS A VALUE GREATER THAN OR EQUAL TO 60 ML/MIN/1.73 SQ METERS. CHRONIC KIDNEY DISEASE: <60mL/MIN/1.73 SQ METERS KIDNEY FAILURE: <15mL/MIN/1.73 SQ METERS THIS TEST SHOULD ONLY BE USED FOR PATIENTS 18 YEARS OF AGE AND OLDER. Globulin (S) [Mass/Vol] 3.4 g/dL Normal 1.5 - 3.8 [facility] Comment on above: Performed By: #### 2 40088 #### [facility],[address] [place] [address] 51912 Glucose [Mass/Vol] 153 mg/dL High 74 - 106 [facility] Comment on above: Performed By: #### 2 94534 #### [facility],[address] [place] [address] 64220 Potassium [Moles/Vol] 4.0 mmol/L Normal 3.5 - 5.1 [facility] Comment on above: Performed By: #### 2 85400 #### [facility],[address] [place] [address] 88011 Protein [Mass/Vol] 8.1 g/dL Normal 6.4 - 8.2 [facility] Comment on above: Performed By: #### 2 85187 #### [facility],[address] [place] [address] 18693 Sodium [Moles/Vol] 133 mmol/L Low 136 - 145 [facility] Comment on above: Performed By: #### 2 34092 #### [facility],[address] [place] [address] 10753 Urea nitrogen [Mass/Vol] 12 mg/dL Normal 7 - 18 [facility] Comment on above: Performed By: #### 2 42929 #### [facility],[address] [place] [address] ABDOMEN/PELVIS [facility] 2023 CT ABDOMEN/PELVIS [place] [address] Patient: ARIEL NGUYEN Phone#: : 1960 Age: 63 Gender: F Pt. Type: ER Account: [id number] Location: [facility] Ordering: NATACHA NOVA Exam Date: 10/13/2023/17:17 Family Phys: SABINE POWER Charge Code: [id number] Physician: Chicot Order #: [id number] Dose#: 18.2 PROCEDURE: CT ABDOMEN/PELVIS WITH CONTRAST COMPARISON: [facility], CT, ABDOMEN/PELVIS W CON, 09/23/2020, 20:34. INDICATIONS: [...] 63 Gender: F Pt. Type: ER Account: [id number] Location: 052 Ordering: NATACHA NOVA Exam Date: 10/13/2023/17:17 Family Phys: SABINE POWER Charge Code: [id number] Physician: Chicot Order #: [id number] Dose#: 18.2 LUNG BASES: Normal. No visible pulmonary or pleural disease. OTHER: Negative. CONCLUSION: 1. Diverticulosis 2. No acute intra-abdominal or pelvic abnormality. Dictated by: Naz Boyle MD on 10/13/2023 at 19:03 Approved by: Naz Boyle MD on 10/13/2023 at 19:11 Normal [facility] LIPASEon 10-13-2023 Lipase [Catalytic activity/Vol] 89.0 U/L High 15.0 - 78.0 [facility] Comment on above: Result Comment: *PLE ASE NOTE THAT RANGES FOR LIPASE HAVE CHANGED OF 05/30/23 DUE TO AN ASSAY UPDATE BY THE BAG MACHINE HELPER.THE NEW ASSAY RANGE IS 6-250 U/L, WITH A REFERENCE RANGE OF 16-77 U/L. Performed By: #### 2 10235 #### [facility],[address] [place] [address] CV ECHO COMPLETE CV ECHO [place] [address] Patient: ARIEL NGUYEN Phone#: : 1960 Age: 63 Gender: F Pt. Type: Out Account: [id number] Location: 052 Ordering: SABINE POWER Exam Date: 09/16/2023/10:20 Family Phys: Charge Code: [id number] Physician: Chicot Order #: [id number] Dose#: PROCEDURE: ECHOCARDIOGRAM WITH DOPPLER AND COLOR FLOW HISTORY: Patient is a 63-year-old female with history of mitral valve regurgitation INDICATIONS: MR COMPARISON: None. TECHNIQUE: A 2-D ultrasound, color spectral Doppler and M-mode evaluation of the heart and great vessels. PATIENT MEASUREMENTS: Height (in.): 66 BSA: 1.97 Weight (lbs.): 192 BP: 133/79 Color Weigher: SARIKA M MODE 2D MEASUREMENTS AND CALCULATIONS: [...] 63 Gender: F Pt. Type: Out Account: [id number] Location: [facility] Ordering: [facility] Exam Date: 09/16/2023/10:20 Family Phys: Charge Code: [id number] Physician: Chicot Order #: [id number] Dose#: MV mean P.65 mm Hg MV [...] AI max PG 95.98 mm[Hg] AI dec Robeson 2.43 m/s2 AI PHT 585.74 ms LV [...] 63 Gender: F Pt. Type: Out Account: [id number] Location: [facility] Ordering: [facility] Exam Date: 09/16/2023/10:20 Family Phys: Charge Code: [id number] Physician: Chicot Order #: [id number] Dose#: RIGHT VENTRICLE: Right ventricle is normal [...] seen 5. (more content not included)... Normal [facility] CMP with eGFRon 09-10-2023 AGE 63 years Normal [facility] Comment on above: Performed By: #### 2 66164 #### [facility],[address] [place] [address] 65432 Albumin [Mass/Vol] 3.7 g/dL Normal 3.4 - 5.0 [facility] Comment on above: Performed By: #### 2 86922 #### [facility],[address] [place] [address] 42916 Albumin/Globulin [Mass ratio] 1.1 {ratio} Normal 0.9 - 1.6 [facility] Comment on above: Performed By: #### 2 53309 #### [facility],[address] [place] [address] 94107 ALK PHOS 86 U/L Normal 46 - 116 [facility] Comment on above: Performed By: #### 2 51269 #### [facility],[address] [place] [address] 96127 ALT [Catalytic activity/Vol] 35 U/L Normal 16 - 63 [facility] Comment on above: Performed By: #### 2 20559 #### [facility],[address] [place] [address] 98414 Anion gap [Moles/Vol] 14 mmol/L Normal 10 - 20 [facility] Comment on above: Performed By: #### 2 37977 #### [facility],[address] [place] [address] 55842 AST [Catalytic activity/Vol] 28 U/L Normal 13 - 39 [facility] Comment on above: Performed By: #### 2 63515 #### [facility],[address] [place] [address] 31540 B/C RATIO 9 ratio Normal 0 - 30 [facility] Comment on above: Performed By: #### 2 94888 #### [facility],[address] [place] [address] 43441 Bilirubin [Mass/Vol] 0.6 mg/dL Normal 0.2 - 1.0 [facility] Comment on above: Performed By: #### 2 24222 #### [facility],[address] [place] [address] 13313 Calcium [Mass/Vol] 9.1 mg/dL Normal 8.5 - 10.1 [facility] Comment on above: Performed By: #### 2 73103 #### [facility],[address] [place] [address] 62898 Chloride [Moles/Vol] 106 mmol/L Normal 98 - 107 [facility] Comment on above: Performed By: #### 2 76449 #### [facility],[address] [place] [address] 67735 CMP with eGFR Normal [facility] Comment on above: Result Comment: COMP REHENSIVE METABOLIC PANEL Performed By: #### 2 69894 #### [facility],[address] [place] [address] 69386 CO2 [Moles/Vol] 27.6 mmol/L Normal 21.0 - 32.0 [facility] Comment on above: Performed By: #### 2 01008 #### [facility],[address] [place] [address] 00205 Creatinine [Mass/Vol] 0.89 mg/dL Normal 0.55 - 1.02 [facility] Comment on above: Performed By: #### 2 99117 #### [facility],[address] [place] [address] 66113 GFR/1.73 sq M.predicted among non-blacks MDRD (S/P/Bld) [Vol rate/Area] mL/min/{1.73_m2} Normal 60 - 999 [facility] Comment on above: Performed By: #### 2 51459 #### [facility],[address] [place] [address] 25424 Result Comment: ACCO RDING TO THE NATIONAL KIDNEY DISEASE EDUCATION PROGRAM(NKDE), A NORMAL eGFR IS A VALUE GREATER THAN OR EQUAL TO 60 ML/MIN/1.73 SQ METERS. CHRONIC KIDNEY DISEASE: <60mL/MIN/1.73 SQ METERS KIDNEY FAILURE: <15mL/MIN/1.73 SQ METERS THIS TEST SHOULD ONLY BE USED FOR PATIENTS 18 YEARS OF AGE AND OLDER. Globulin (S) [Mass/Vol] 3.3 g/dL Normal 1.5 - 3.8 [facility] Comment on above: Performed By: #### 2 51379 #### [facility],[address] [place] [address] 18554 Glucose [Mass/Vol] 89 mg/dL Normal 74 - 106 [facility] Comment on above: Performed By: #### 2 37376 #### [facility],[address] [place] [address] 90365 Potassium [Moles/Vol] 3.9 mmol/L Normal 3.5 - 5.1 [facility] Comment on above: Performed By: #### 2 52814 #### [facility],[address] [place] [address] 81043 Protein [Mass/Vol] 7.0 g/dL Normal 6.4 - 8.2 [facility] Comment on above: Performed By: #### 2 34516 #### [facility],[address] [place] [address] 12168 Sodium [Moles/Vol] 144 mmol/L Normal 136 - 145 [facility] Comment on above: Performed By: #### 2 27232 #### [facility],[address] [place] [address] 83280 Urea nitrogen [Mass/Vol] 8 mg/dL Normal 7 - 18 [facility] Comment on above: Performed By: #### 2 83587 #### [facility],[address] [place] [address] 23258 TSHon 09-10-2023 TSH Qn 1.01 m[IU]/L Normal 0.35 - 3.74 [facility] Comment on above: Performed By: #### 2 93712 #### [facility],[address] [place] [address] 45504 3D MAMM BILAT SCREENon 11-29 3D MAMM BILAT SCREEN [place] [address] Patient: ARIEL NGUYEN Phone#: : 1960 Age: 62 Gender: F Pt. Type: Out Account: [id number] Location: [facility] Ordering: [facility] Exam Date: 11/29/2022/14:08 Family Phys: Charge Code: [id number] Physician: Chicot Order #: [id number] Dose#: PROCEDURE: BILATERAL SCREENING BREAST TOMOSYNTHESIS MAMMOGRAM WITH CAD COMPARISON: [facility], BILAT SCREENING, 07/08/2014, 10:05. [facility], BILAT SCREENING, 03/26/2017, 9:53. INDICATIONS: Screening. BREAST [...] Tripp MD on 11/29/2022 at 14:27 Normal [facility] Absolute lymphocyte countOrd ered By: Dr. Nolan on 07-16-2022 Lymphocytes Auto (Unsp spec) [#/Vol] 1.44 10*3/uL 0.83-4.51 [facility] Basophil percentageOrdered B y: Dr. Nolan on 07-16-2022 Basophils/100 WBC (Bld) 0.7 % 0-1 [facility] Bilirubin [Mass/Vol] 0.50 mg/dL 0.20-1.00 [facility] Comment on above: For patients on eltr ombopag therapy, use of Dimension [place] TBIL is not recommended. Chloride [Moles/Vol] 108 mmol/L 98-107 [facility] Eosinophils/100 WBC (Bld) 4.0 % 0-5 [facility] Glucose [Mass/Vol] 97 mg/dL 74-106 [facility] Neutrophils (Bld) [#/Vol] 2.2 10*3/uL 2.0-7.7 [facility] Neutrophils/100 WBC (Bld) 53.4 % 47-70 [facility] Potassium [Moles/Vol] 4.3 mmol/L 3.5-5.1 [facility] Protein [Mass/Vol] 7.0 g/dL 6.4-8.2 [facility] Sodium [Moles/Vol] 140 mmol/L 136-145 [facility] WBC (Bld) [#/Vol] 4.0 10*3/uL 4.4-11.0 [facility] Bilirubin Test strip Ql (U)O rdered By: Dr. Nolan on 07-16-2022 Bilirubin Ql (U) Negative Negative [facility] Blood erythrocytes count (nu mber/volume)Ordered By: Dr. Nolan on 02-14-2023 RBC (Bld) [#/Vol] 4.48 10*6/uL 4.2-5.4 [facility] Blood hemoglobin measurement (mass/volume)Ordered By: Dr. Nolan on 07-16-2022 Hemoglobin (Bld) [Mass/Vol] 13.5 g/dL 12.0-15.0 [facility] Blood lymphocytes/100 leukoc ytesOrdered By: Dr. Nolan on 07-16-2022 Lymphocytes/100 WBC (Bld) 35.7 % 19-41 [facility] Blood monocytes/100 leukocyt esOrdered By: Dr. Nolan on 07-16-2022 Monocytes/100 WBC (Bld) 6.0 % 0-10 [facility] Blood platelet mean volumeOr dered By: Dr. Nolan on 07-16-2022 Platelet mean volume (Bld) [Entitic vol] 11.2 fL 6.2-12.0 [facility] Determination of erythrocyte mean corpuscular volume (MCV)Ordered By: Dr. Nolan on 07-16-2022 MCV (RBC) [Entitic vol] 88.6 fL 81-99 [facility] Dilute Librado's viper venom timeOrdered By: Dr. Nolan on 07-16-2022 dRVVT Coag (PPP) [Time] 40.0 s 0.0-47.0 [facility] Erythrocyte sedimentation ra teOrdered By: Dr. oNlan on 07-16-2022 ESR (Bld) [Velocity] 11 mm/h 0-30 [facility] Hematocrit Auto (Bld) [Volum e fraction]Ordered By: Dr. Nolan on 07-16-2022 Hematocrit (Bld) [Volume fraction] 39.7 % 37-47 [facility] INR in Blood by Coagulation assayOrdered By: Dr. Nolan on 07-16-2022 INR Coag (Bld) [Relative time] 1.0 {INR} [facility] Ketones Test strip Ql (U)Ord ered By: Dr. Nolan on 07-16-2022 Ketones Ql (U) Negative Negative [facility] Laboratory - Chemistry and C hemistry - challengeOrdered By: Dr. Nolan on 07-16-2022 ALP [Catalytic activity/Vol] 73 U/L 45-117 [facility] ALT [Catalytic activity/Vol] 20 U/L 13-56 [facility] CO2 [Moles/Vol] 25.0 mmol/L 21.0-32.0 [facility] Globulin (S) [Mass/Vol] 3.2 g/dL 2.2-4.2 [facility] Urea nitrogen/Creatinine [Mass ratio] 15.3 mg/mg 10-20 [facility] Laboratory - CoagulationOrde red By: Dr. Nolan on 07-16-2022 aPTT Coag (Bld) [Time] 25.1 s 24.1-36.2 [facility] PT Coag (PPP) [Time] 12.8 s 11.7-14.9 [facility] Laboratory - Hematology and Cell countsOrdered By: Dr. Nolan on 07-16-2022 Erythrocyte distribution width (RBC) [Entitic vol] 38.5 fL 35.1-43.9 [facility] Erythrocyte distribution width (RBC) [Ratio] 11.9 % 11.6-14.6 [facility] Immature granulocytes/100 WBC (Bld) 0.200 % 0.0-0.9 [facility] Comment on above: IG% - Immature Granu locytes (promyelocytes, myelocytes and metamyelocytes) > 1% indicates that a LEFT SHIFT is Present. MCH (RBC) [Entitic mass] 30.1 pg 27.0-32.0 [facility] Nucleated RBC/100 WBC (Bld) [Ratio] 0 % 0-5 [facility] Laboratory - Miscellaneous t estsOrdered By: Dr. Nolan on 07-16-2022 Service comment (Unsp spec) [Interp] Comment . [facility] Comment on above: Results do not indic ate the presence of a LupusAnticoagulant: abnormal high screening results (PTT-LA,dRVVT, mixing studies), may be due to medication (heparin,warfarin, aspirin), Factor inhibitors, anticardiolipinantibodies, or poor specimen integrity.Performed at: [address] [id number] Director: Chitra Luna MD, Phone: [phone] [facility] Auto (RBC) [Mass/Vol]Or dered By: Dr. Nolan on 07-16-2022 MCHC (RBC) [Mass/Vol] 34.0 g/dL 32-36 [facility] Nitrite Test strip Ql (U)Ord ered By: Dr. Nolan on 07-16-2022 Nitrite Ql (U) Negative Negative [facility] No Panel InformationOrdered By: Dr. Nolan on 07-16-2022 Estimated GFR (MDRD) Amer 87 mL/min >60 [facility] Comment on above: GFR Calc Estimated GFR (MDRD) Non-Af Amer 72 mL/min >60 [facility] Comment on above: Non- GFR Calc Hepatitis B Surface Antigen Non-Reactive Nonreactive [facility] Hepatitis C Antibody Non-Reactive Nonreactive [facility] Comment on above: Non Reactive: < 0.8 Equivocal: >/= 0.8 to < 1.0 Reactive: >/= 1.0The CDC recommends that a reactive/equivocal HCV antibody result be followed up by the HCV Nucleic Acid Amplificationtest (565784) Miscellaneous Test Comment MAILED SPECIMEN [facility] Platelets bldOrdered By: Dr. Nolan on 07-16-2022 Platelets (Bld) [#/Vol] 169 10*3/uL 150-450 [facility] Protein Test strip Ql (U)Ord ered By: Dr. Nolan on 07-16-2022 Protein Ql (U) Negative Negative [facility] Serum hepatitis B virus surf sandie antibody IgG detectionOrdered By: Dr. Nolan on 07-16-2022 HBV surface IgG Ql (S) Reactive [facility] Comment on above: Non Reactive: Incons istent with immunity less than <10 mIU/mL Reactive: Consistent with immunity greater than or equal to 10 mIU/mL Serum or plasma C reactive p rotein measurement (mass/volume)Ordered By: Dr. Nolan on 07-16-2022 CRP [Mass/Vol] mg/L 0.0-3.0 [facility] Comment on above: C-Reactive Protein ( CRP) provides useful information for thediagnosis, therapy and monitoring of inflammatory processesand associated diseases. For the evaluation of Relative Riskfor Cardiovascular Disease, a High Sensitivity CRP (HSCRP)should be ordered. Serum or plasma albumin sami urement (mass/volume)Ordered By: Dr. Nolan on 07-16-2022 Albumin [Mass/Vol] 3.8 g/dL 3.2-5.0 [facility] Serum or plasma albumin/glob ulin mass ratioOrdered By: Dr. Nolan on 07-16-2022 Albumin/Globulin [Mass ratio] 1.2 {ratio} 0.9-2.4 [facility] Serum or plasma calcium sami urement (mass/volume)Ordered By: Dr. Nolan on 07-16-2022 Calcium [Mass/Vol] 9.3 mg/dL 8.5-10.1 [facility] Serum or plasma creatinine m easurement (mass/volume)Ordered By: Dr. Nolan on 07-16-2022 Creatinine [Mass/Vol] 0.85 mg/dL 0.55-1.02 [facility] Comment on above: The validity of the calculated GFR & GFRAA in patients over 70 years has not been determined. Clinical correlation is essential. Serum or plasma urea nitroge n measurement (mass/volume)Ordered By: Dr. Nolan on 07-16-2022 Urea nitrogen [Mass/Vol] 13 mg/dL 7-18 [facility] Thin prep Papanicolaou smear with manual screeningOrdered By: Dr. Nolan on 07-16-2022 Thin prep Papanicolaou smear with manual screening 17 U/L 15-37 [facility] Thin prep Papanicolaou smear with manual screening 7 5-15 [facility] Thin prep Papanicolaou smear with manual screening 41.8 sec 0.0-47.6 [facility] Thin prep Papanicolaou smear with manual screening 1.09 Ratio 0.00-1.34 [facility] Thin prep Papanicolaou smear with manual screening 41.1 sec 0.0-43.5 [facility] Comment on above: Please note refere nce interval change Thin prep Papanicolaou smear with manual screening Comment: . [facility] Comment on above: No lupus anticoagula nt was detected. Thrombin time in platelet po or plasmaOrdered By: Dr. Nolan on 07-16-2022 Thrombin time Coag (PPP) [Time] 16.6 sec 0.0-23.0 [facility] Urine blood detectionOrdered By: Dr. Nolan on 07-16-2022 RBC Ql (U) Negative Negative [facility] Urine clarityOrdered By: Dr. Nolan on 07-16-2022 Clarity (U) Clear Clear [facility] Urine color determinationOrd ered By: Dr. Nolan on 07-16-2022 Color (U) Yellow Yellow [facility] Urine creatinine measurement (mass/volume)Ordered By: Dr. Nolan on 07-16-2022 Creatinine (U) [Mass/Vol] 52.90 mg/dL NO RANGE EST. [facility] Urine glucose detectionOrder ed By: Dr. Nolan on 07-16-2022 Glucose Ql (U) Normal mg/dl Normal [facility] Urine leukocyte esterase det ection by dipstickOrdered By: Dr. Nolan on 07-16-2022 Leukocyte esterase Test strip Ql (U) Negative Negative [facility] Urine pHOrdered By: Dr. Duke banerjee on 07-16-2022 pH (U) 6.5 [pH] 5.0 - 8.0 [facility] Urine protein measurement (m ass/volume)Ordered By: Dr. Nolan on 07-16-2022 Protein (U) [Mass/Vol] mg/dL 0.0-11.8 [facility] Urine protein/creatinine mas s ratioOrdered By: Dr. Nolan on 07-16-2022 Protein/Creatinine (U) [Mass ratio] TNP [facility] Comment on above: Test not performed Urine specific gravity measu rementOrdered By: Dr. Nolan on 07-16-2022 Specific gravity (U) [Rel density] 1.010 1.002-1.030 [facility] Urobilinogen Auto test strip Ql (U)Ordered By: Dr. Nolan on 07-16-2022 Urobilinogen Ql (U) Normal mg/dl Normal [facility] NM GASTRIC EMPTYING STUDYon 11-03-2020 NM GASTRIC EMPTYING STUDY ORIGINAL NM GASTRIC [...] Emptying Scintigraphy: A Joint Report of the [place] [employer] of Nuclear Medicine. [...] Date: 11/03/2020 3:29:42 PM Ordering Provider:Ariel Jane [facility] ([place]) .Auto Diffon 10-02-2020 Basophil, Absolute 0.10 10 3/mcL Normal 0.00-0.27 [facility] ([place]) Comment on above: Performed By: #### C BC, ADIFF, ANEU, CMP, GFR, TSH, ERDS #### [address] [address] Basophils/100 WBC (Bld) 1.1 % Normal 0.0-2.5 [facility] ([place]) Comment on above: Performed By: #### C BC, ADIFF, ANEU, CMP, GFR, TSH, ERDS #### [address] [address] Eosinophil, Absolute 0.20 10 3/mcL Normal 0.00-0.65 [facility] ([place]) Comment on above: Performed By: #### C BC, ADIFF, ANEU, CMP, GFR, TSH, ERDS #### [address] [address] Eosinophils/100 WBC (Bld) 2.7 % Normal 0.0-6.0 [facility] ([place]) Comment on above: Performed By: #### C BC, ADIFF, ANEU, CMP, GFR, TSH, ERDS #### [address] [address] Lymphocyte, Absolute 1.80 10 3/mcL Normal 0.90-4.32 [facility] [place] Comment on above: Performed By: #### C BC, ADIFF, ANEU, CMP, GFR, TSH, ERDS #### [address] [address] Lymphocytes/100 WBC (Bld) 28.9 % Normal 20.0-40.0 [facility] ([place]) Comment on above: Performed By: #### C BC, ADIFF, ANEU, CMP, GFR, TSH, ERDS #### [address] [address] Monocyte, Absolute 0.40 10 3/mcL Normal 0.09-1.40 [facility] ([place]) Comment on above: Performed By: #### C BC, ADIFF, ANEU, CMP, GFR, TSH, ERDS #### [address] [address] Monocytes/100 WBC (Bld) 6.2 % Normal 2.0-13.0 [facility] ([place]) Comment on above: Performed By: #### C BC, ADIFF, ANEU, CMP, GFR, TSH, ERDS #### [address] [address] Neutrophils/100 WBC (Bld) 61.1 % Normal 50.0-75.0 [facility] ([place]) Comment on above: Performed By: #### C BC, ADIFF, ANEU, CMP, GFR, TSH, ERDS #### [address] [address] .GFRon 10-02-2020 GFR >60 Normal [facility] ([place]) Comment on above: Result Comment: GFR Population [...] ADIFF, ANEU, CMP, GFR, TSH, ERDS #### [place] [address] GFR Non- >60 Normal [facility] ([place]) Comment on above: Result Comment: GFR Population [...] ADIFF, ANEU, CMP, GFR, TSH, ERDS #### [place] [address] .NEUABSon 10-02-2020 Neutrophil, Absolute 3.70 10 3/mcL Normal 2.25-8.10 [facility] [place] Comment on above: Performed By: #### C BC, ADIFF, ANEU, CMP, GFR, TSH, ERDS #### [place] [address] CBCon 10-02-2020 Erythrocyte distribution width (RBC) [Ratio] 13.4 % Normal 11.5-15.5 [facility] ([place] Comment on above: Performed By: #### C BC, ADIFF, ANEU, CMP, GFR, TSH, ERDS #### [place] [address] Hematocrit (Bld) [Volume fraction] 38.2 % Normal 34.0-46.0 [facility] ([place]) Comment on above: Performed By: #### C BC, ADIFF, ANEU, CMP, GFR, TSH, ERDS #### [place] [address] Hgb 13.0 G/dL Normal 12.0-16.0 [facility] ([place]) Comment on above: Performed By: #### C BC, ADIFF, ANEU, CMP, GFR, TSH, ERDS #### [place] [address] MCH (RBC) [Entitic mass] 30.6 pg Normal 27.0-33.0 [facility] ([place]) Comment on above: Performed By: #### C BC, ADIFF, ANEU, CMP, GFR, TSH, ERDS #### [place] [address] MCHC 34.1 G/dL Normal 32.0-36.0 [facility] ([place]) Comment on above: Performed By: #### C BC, ADIFF, ANEU, CMP, GFR, TSH, ERDS #### [place] [address] MCV (RBC) [Entitic vol] 89.8 fL Normal 80.0-99.0 [facility] ([place]) Comment on above: Performed By: #### C BC, ADIFF, ANEU, CMP, GFR, TSH, ERDS #### [place] [address] Platelet 158 10 3/mcL Normal 150-450 [facility] ([place]) Comment on above: Performed By: #### C BC, ADIFF, ANEU, CMP, GFR, TSH, ERDS #### [place] [address] Platelet mean volume (Bld) [Entitic vol] 8.7 fL Normal 6.6-10.5 [facility] ([place]) Comment on above: Performed By: #### C BC, ADIFF, ANEU, CMP, GFR, TSH, ERDS #### [place] [id number] RBC 4.26 10 6/mcL Normal 4.10-5.30 [facility] ([place]) Comment on above: Performed By: #### C BC, ADIFF, ANEU, CMP, GFR, TSH, ERDS #### [place] [address] WBC 6.10 10 3/mcL Normal 4.50-10.80 [facility] ([place]) Comment on above: Performed By: #### C BC, ADIFF, ANEU, CMP, GFR, TSH, ERDS #### [place] [address] CMPon 10-02-2020 Albumin Level 3.8 G/dL Normal 3.2-4.8 [facility] ([place]) Comment on above: Performed By: #### C BC, ADIFF, ANEU, CMP, GFR, TSH, ERDS #### [place] [address] Albumin/Globulin [Mass ratio] 1.3 {ratio} Normal 0.9-1.6 [facility] ([place]) Comment on above: Performed By: #### C BC, ADIFF, ANEU, CMP, GFR, TSH, ERDS #### [place] [address] ALP [Catalytic activity/Vol] 72 U/L Normal 38-126 [facility] ([place]) Comment on above: Performed By: #### C BC, ADIFF, ANEU, CMP, GFR, TSH, ERDS #### [place] [address] ALT [Catalytic activity/Vol] 22 U/L Normal 10-49 [facility] ([place]) Comment on above: Performed By: #### C BC, ADIFF, ANEU, CMP, GFR, TSH, ERDS #### [address] [address] AST [Catalytic activity/Vol] 20 U/L Normal 8-34 [facility] ([place]) Comment on above: Performed By: #### C BC, ADIFF, ANEU, CMP, GFR, TSH, ERDS #### [address] [address] Bili Total 0.3 mg/dL Normal 0.2-1.2 [facility] ([place]) Comment on above: Result Comment: Use of this assay is not recommended for patients undergoing treatment with eltrombopag due to the potential for falsely elevated results. Performed By: #### C BC, ADIFF, ANEU, CMP, GFR, TSH, ERDS #### [address] [address] BUN/Creatinine Ratio 10.7 ratio Normal 10.0-22.0 [facility] ([place]) Comment on above: Performed By: #### C BC, ADIFF, ANEU, CMP, GFR, TSH, ERDS #### [address] [address] Calcium [Mass/Vol] 9.4 mg/dL Normal 8.4-10.1 [facility] ([place]) Comment on above: Result Comment: No te - New Reference Range in effect 19 Performed By: #### C BC, ADIFF, ANEU, CMP, GFR, TSH, ERDS #### [address] [address] Chloride [Moles/Vol] 111 mmol/L High 98-110 [facility] ([place]) Comment on above: Performed By: #### C BC, ADIFF, ANEU, CMP, GFR, TSH, ERDS #### [address] [address] CO2 [Moles/Vol] 27 mmol/L Normal 22-32 [facility] ([place]) Comment on above: Performed By: #### C BC, ADIFF, ANEU, CMP, GFR, TSH, ERDS #### [address] [address] Creatinine [Mass/Vol] 0.84 mg/dL Normal 0.50-1.20 [facility] ([place]) Comment on above: Performed By: #### C BC, ADIFF, ANEU, CMP, GFR, TSH, ERDS #### [address] [address] Electrolyte Balance 4.0 mEq/L Normal 4.0-15.0 [facility] ([place]) Comment on above: Performed By: #### C BC, ADIFF, ANEU, CMP, GFR, TSH, ERDS #### [address] [address] Globulin 3.0 G/dL Normal 1.5-3.8 [facility] ([place]) Comment on above: Performed By: #### C BC, ADIFF, ANEU, CMP, GFR, TSH, ERDS #### [address] [address] Glucose [Mass/Vol] 119 mg/dL High 82-115 [facility] ([place]) Comment on above: Performed By: #### C BC, ADIFF, ANEU, CMP, GFR, TSH, ERDS #### [address] [address] Potassium [Moles/Vol] 3.8 mmol/L Normal 3.5-5.0 [facility] ([place]) Comment on above: Performed By: #### C BC, ADIFF, ANEU, CMP, GFR, TSH, ERDS #### [address] [address] Sodium [Moles/Vol] 142 mmol/L Normal 136-145 [facility] ([place]) Comment on above: Performed By: #### C BC, ADIFF, ANEU, CMP, GFR, TSH, ERDS #### [address] [address] Total Protein 6.8 G/dL Normal 6.0-8.5 [facility] ([place]) Comment on above: Result Comment: No te - New Reference Range in effect 19 Performed By: #### C BC, ADIFF, ANEU, CMP, GFR, TSH, ERDS #### [place] [address] Urea nitrogen [Mass/Vol] 9.0 mg/dL Normal 8.0-22.0 [facility] ([place]) Comment on above: Performed By: #### C BC, ADIFF, ANEU, CMP, GFR, TSH, ERDS #### [place] [address] ERDSon 10-02-2020 Acetaminophen [Mass/Vol] ug/mL Low 10.0-20.0 [facility] ([place]) Comment on above: Performed By: #### C BC, ADIFF, ANEU, CMP, GFR, TSH, ERDS #### [place] [address] ER Drug Screen (s) Negative Normal [facility] ([place]) Comment on above: Performed By: #### C BC, ADIFF, ANEU, CMP, GFR, TSH, ERDS #### [place] [address] ER Drug Screen Interp Serum shows no audrey dence of drugs routinely screened Invalid Interpretation Code [facility] ([place]) Comment on above: Performed By: #### C BC, ADIFF, ANEU, CMP, GFR, TSH, ERDS #### [place] [address] ER Serum Drugs Screened: See Below Normal [facility] ([place]) Comment on above: Result Comment: This drug screen is a presumptive screening only. No confirmation will be performed unless requested. Drugs included in the ER serum drug screen are: Threshold Ethanol 10.0 mg/dL Salicylate 2.0 mg/dL Acetaminophen 2.0 mcg/mL Tricyclic Antidepressants 300 ng/mL Testing has been performed FOR MEDICAL PURPOSES ONLY. Performed By: #### C BC, ADIFF, ANEU, CMP, GFR, TSH, ERDS #### [place] [address] Ethanol Level <10.0 Normal [facility] ([place]) Comment on above: Performed By: #### C BC, ADIFF, ANEU, CMP, GFR, TSH, ERDS #### [place] [address] Salicylate Lvl (ds) <3.0 Low 10.0-25.0 [facility] ([place]) Comment on above: Performed By: #### C BC, ADIFF, ANEU, CMP, GFR, TSH, ERDS #### [place] [address] TCA (s) Negative Normal [facility] ([place]) Comment on above: Performed By: #### C BC, ADIFF, ANEU, CMP, GFR, TSH, ERDS #### [place] [address] RESCVIDon 10-02-2020 Adenovirus Not detected Normal Not Detected [facility] ([place]) Comment on above: Performed By: #### R ESCVID #### [place] [address] Bordetella Parapertussis Not detected Normal Not Detected [facility] ([place]) Comment on above: Performed By: #### R ESCVID #### [place] [address] Bordetella Pertussis Not detected Normal Not Detected [facility] ([place] Comment on above: Performed By: #### R ESCVID #### [place] [address] Chlamydophila pneumoniae Not detected Normal Not Detected [facility] ([place] Comment on above: Performed By: #### R ESCVID #### [place] [address] Coronavirus 229E (Not COVID-19) Not detected Normal Not Detected [facility] ([place]) Comment on above: Performed By: #### R ESCVID #### [place] [address] Coronavirus HKU1 (Not COVID-19) Not detected Normal Not Detected [facility] ([place]) Comment on above: Performed By: #### R ESCVID #### [place] [address] Coronavirus NL63 (Not COVID-19) Not detected Normal Not Detected [facility] ([place] Comment on above: Performed By: #### R ESCVID #### [place] [address] Coronavirus OC43 (Not COVID-19) Not detected Normal Not Detected [facility] ([place]) Comment on above: Performed By: #### R ESCVID #### [facility] [address] [place] [address] Date of Onset 20201002 Invalid Interpretation Code [facility] ([place]) Comment on above: Performed By: #### R ESCVID #### [place] [address] Employed in Healthcare No Normal [facility] ([place]) Comment on above: Performed By: #### R ESCVID #### [place] [address] First Test Unknown Normal [facility] ([place]) Comment on above: Performed By: #### R ESCVID #### [place] [address] Hospitalized No Normal [facility] ([place]) Comment on above: Performed By: #### R ESCVID #### [place] [address] Human Metapneumovirus Not detected Normal Not Detected [facility] ([place] Comment on above: Performed By: #### R ESCVID #### [address] [address] ICU No Normal [facility] ([place] Comment on above: Performed By: #### R ESCVID #### [place] [address] Influenza A Not detected Normal Not Detected [facility] ([place] Comment on above: Performed By: #### R ESCVID #### [place] [address] Influenza B Not detected Normal Not Detected [facility] ([place] Comment on above: Performed By: #### R ESCVID #### [place] [address] Mycoplasma pneumoniae Not detected Normal Not Detected [facility] ([place]) Comment on above: Performed By: #### R ESCVID #### [facility] [address] [place] [address] Parainfluenza 1 Not detected Normal Not Detected [facility] ([place]) Comment on above: Performed By: #### R ESCVID #### [facility] [address] [place] [address] Parainfluenza 2 Not detected Normal Not Detected [facility] ([place] Comment on above: Performed By: #### R ESCVID #### [facility] [address] [place] [address] Parainfluenza 3 Not detected Normal Not Detected [facility] ([place] Comment on above: Performed By: #### R ESCVID #### [place] [address] Parainfluenza 4 Not detected Normal Not Detected [facility] ([place] Comment on above: Performed By: #### R ESCVID #### [place] [address] Not Normal [facility] ([place]) Comment on above: Performed By: #### R ESCVID #### [place] [address] Resides in Congregate Care Setting Unknown Normal [facility] ([place]) Comment on above: Performed By: #### R ESCVID #### [place] [address] Respiratory Syncytial Virus Not detected Normal Not Detected [facility] ([place]) Comment on above: Performed By: #### R ESCVID #### [place] [address] Rhinovirus/Enterovirus Not detected Normal Not Detecte d [facility] ([place]) Comment on above: Performed By: #### R ESCVID #### [place] [address] SARS-CoV-2 (COVID-19) RNA GOLD+probe Ql (Unsp spec) Not detected Normal Not Detected [facility] ([place]) Comment on above: Result Comment: This test is being used under the FDA EUA procedure. This assay has been validated in the [facility] for use with nasopharyngeal specimens in [facility]. If a non-validated specimen or [...] authorities. Performed By: #### R ESCVID #### [address] [address] Symptomatic as Defined by CDC No Normal [facility] ([place]) Comment on above: Performed By: #### R ESCVID #### [address] [address] TSHon 10-02-2020 TSH 1.218 mIU/mL Normal 0.550-4.780 [facility] ([place]) Comment on above: Result Comment: No te - New Reference Range in effect 19 Performed By: #### C BC, ADIFF, ANEU, CMP, GFR, TSH, ERDS #### [address] [address] U ERDSon 10-02-2020 ER U Drug Screen Positive Abnormal [facility] ([place]) Comment on above: Performed By: #### SID Rossi #### [place] [address] ER U Drug Screen Interp In the urine, the following drug(s) or drug class(es) were screened presumptive positive at or above the listed threshold: _ Invalid Interpretation Code [facility] ([place]) Comment on above: Performed By: #### SID Rossi #### [place] [address] U ER Drugs Screened: See Below Normal [facility] ([place]) Comment on above: Result Comment: This drug [...] ONLY. Performed By: #### SID Rossi #### [place] [address] UAon 10-02-2020 Color (U) Yellow Normal [facility] ([place]) Comment on above: Performed By: #### SID Rossi #### [place] [address] Glucose (U) [Mass/Vol] Negative Normal Negative [facility] ([place]) Comment on above: Performed By: #### SID Rossi #### [place] [address] Ketones Ql (U) Negative Normal Neg-Trace [facility] ([place]) Comment on above: Performed By: #### SID Rossi #### [place] [id number] UA Appear Clear Normal [facility] ([place]) Comment on above: Performed By: #### SID Rossi #### [place] [id number] UA Blood Negative Normal Neg-Trace [facility] ([place]) Comment on above: Performed By: #### SID Rossi #### [address] [address] UA Leuk Est Trace Normal Negative [facility] ([place]) Comment on above: Performed By: #### SID Rossi #### [address] [address] UA Nitrite Negative Normal Negative [facility] ([place]) Comment on above: Performed By: #### SID Rossi #### [place] [address] UA pH 8.5 Abnormal 5.0 - 8.0 [facility] ([place]) Comment on above: Performed By: #### SID Rossi #### [place] [address] UA Protein Negative Normal Negative [facility] ([place]) Comment on above: Performed By: #### SID Rossi #### [place] [address] UA Spec Grav 1.020 Normal [facility] ([place]) Comment on above: Performed By: #### SID Rossi #### [place] [address] UA Specimen Type Clean Catch Normal [facility] ([place]) Comment on above: Performed By: #### SID Rossi #### [place] [address] UA Urobilinogen 0.2 E.U./dL Normal [facility] ([place]) Comment on above: Performed By: #### SID Rossi #### [place] [address] Urobilinogen (U) [Mass/Vol] Negative Normal Neg-Trace [facility] ([place]) Comment on above: Performed By: #### SID Rossi #### [place] [address] Cortisolon 10-01-2020 Cortisol 5.7 ug/dL Normal 4.8-19.5 [facility] Comment on above: Performed By: #### C OR #### [facility] Routine Lab [address], [place] [address] TSHon 03-17-2020 TSH Qn 0.93 m[IU]/L Normal 0.40-4.50 [facility] Comment on above: Performed By: #### 8 99 #### [facility]-[address], [address] [place] [address] [employer] Special Agent: Reggie More MD THINPREP PAP AND HPV mRNA E6 /E7on 02-11-2020 CLINICAL INFORMATION: Normal [facility] Comment on above: Result Comment: None given Performed By: #### 9 0931 #### [facility] [address]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 [facility] Start: 12-31-2024 Medicare Annual Well ness Visit Medicare Annual Wellness Visit [facility] Start: 12-29-2024 End: 12-29-2025 ECHO TRANSESOPHAGEAL ECHO TRANSESOPHAGEAL Cardiology Routine Acute on chronic diastolic (congestive) heart failure (HCC) Chronic systolic HF (heart failure) (HCC) Ischemic cardiomyopathy Primary hypertension Shortness of breath Expected: 12/29/2024, Expires: 12/29/2025 [facility] Comment on above: Expected: 12/29/2024 , Expires: 12/29/2025 Start: 12-29-2024 End: 12-29-2025 Echocardiography ECHO Cardiology Routine Acute on chronic diastolic (congestive) heart failure (HCC) Chronic systolic HF (heart failure) (HCC) Ischemic cardiomyopathy Primary hypertension Shortness of breath Expected: 12/29/2024, Expires: 12/29/2025 [facility] Work Phone: Comment on above: Expected: 12/29/2024 , Expires: 12/29/2025 Start: 12-29-2024 End: 12-29-2024 Patient encounter procedure 12/29/2024 1:15 PM EDT Office Visit Cardiology [address] [place] [address] Jacqueline Love MD [address] [place], [place] [id number] DX CONGESTIVE HEART FAILURE //TRIPLE BYPASS SURGERY 08/12/2024 Cardiology Comment on above: DX CONGESTIVE HEART FAILURE //TRIPLE BYPASS SURGERY 08/12/2024 Start: 12-29-2024 End: 12-29-2024 Admission to same day surgery center 12/29/2024 12:00 PM EDT Procedure Cardiology [address] [place] [address] DX CONGESTIVE HEART FAILURE //TRIPLE BYPASS SURGERY 08/12/2024 Cardiology Comment on above: DX CONGESTIVE HEART FAILURE //TRIPLE BYPASS SURGERY 08/12/2024 Start: 12-29-2024 End: 12-29-2024 Patient encounter procedure 12/29/2024 11:45 AM EDT Office Visit Cardiology [address] [place] [address] DX CONGESTIVE HEART FAILURE //TRIPLE BYPASS SURGERY 08/12/2024 Cardiology Comment on above: DX CONGESTIVE HEART FAILURE //TRIPLE BYPASS SURGERY 08/12/2024 Start: 12-15-2024 End: 12-15-2024 Patient encounter procedure 12/15/2024 5:40 PM EDT Office Visit [facility] [place] [address] [place], [place] [address] Analilia Chan, CLINICAL AUDITOR.DANCE DIRECTOR [address] [place] [address] establish care [facility] [place] Comment on above: establish care Start: 08-10-2024 Screening for malign ant neoplasm of colon Colorectal Cancer Screening [facility] Start: 02-01-2024 Covid-19 Vaccine ( season) Covid-19 Vaccine ( season) [facility] Start: 2020 RSV Vaccine (1 - Ris k 60-74 years 1-dose series) RSV Vaccine (1 - Risk 60-74 years 1-dose series) [facility] Start: 01-19-2010 Pneumococcal Vaccine : 50+ (1 of 1 - PCV) Pneumococcal Vaccine: 50+ (1 of 1 - PCV) [facility] Start: 01-19-2010 Shingrix Vaccine (1 of 2) [place]malley grix Vaccine (1 of 2) [facility] Start: 01-19-2005 Diabetes Screening Diabetes Screenin g [facility] Start: 01-19-2005 Lipid panel Lipid Screening [facility] Start: 08-20-2005 Screening for malign ant neoplasm of colon [facility] Start: 2000 Screening for malign ant neoplasm of breast Mammogram Screening [facility] Start: 01-19-1981 Screening for malign ant neoplasm of cervix Cervical Cancer Screening [facility] Start: 01-19-1979 Pneumococcal Vaccine : 50+ (1 of 2 - PCV) Pneumococcal Vaccine: 50+ (1 of 2 - PCV) [facility] Start: 01-19-1979 Urine microalbumin profile DTaP,Tdap,Td Vaccine (1 - Tdap) [facility] [facility] Start: 01-19-1978 Annual PCP Team Instructor Adjunct Pharmacy Technician bhanu Disease Visit Annual PCP Team Chronic Disease Visit [facility] Start: 01-19-1978 Anxiety Screening Anxiety Screening [facility] Start: 01-19-1978 Depression Screening Depression Scre ening [facility] Start: 01-19-1978 Hepatitis C screening Hepatitis C Sc reening [facility] Start: 01-19-1978 HIV screening HIV Screening [facility] Start: 01-19-1978 Screening for malign ant neoplasm of colon [facility] Albumin [Moles/volum e] in Serum or Plasma [facility] Albumin/Globulin ratio [facility] [place] [facility] [place] [facility]ARD[facility] [place] ([place] BIC Routine Acute on chronic diastolic (congestive) heart failure (HCC) Chronic systolic HF (heart failure) (HCC) Ischemic cardiomyopathy Primary hypertension Shortness of breath Ordered: 12/29/2024 [facility] Comment on above: Ordered: 12/29/2024 DBT Breast - bilater al screening AMELIA SCREENING [facility] Radiology Routine Encounter for screening mammogram for malignant neoplasm of breast 01/14/2025 1:22 PM EDT [facility] Work Phone: End: 02-13-2026 DBT Breast - bilateral screening AMELIA SCREENING W [facility] Radiology Routine Encounter for screening mammogram for malignant neoplasm of breast 1 Occurrences starting 01/14/2025 until 02/13/2026 [facility] Work Phone: Comment on above: 1 Occurrences starti ng 01/14/2025 until 02/13/2026 End: 10-12-2025 ECG COMPLETE [facility] Work Phone: Comment on above: 1 Occurrences starti ng 10/12/2024 until 10/12/2025 Electrophoresis: [id number] [facility] Electrophoresis: anthony ma globulin [facility] Jean Andre virus c apsid IgG Ab [Units/volume] in Serum [facility] Jean Andre virus c apsid IgM Ab [Units/volume] in Serum [facility] Jean Andre virus nuclear IgG Ab [Units/volume] in Cerebral spinal fluid [facility] Jean-Andre virus serologic test [facility] Globulin measurement [facility] IgA [Mass/volume] in Serum or Plasma [facility] IgG [Mass/volume] in Serum or Plasma [facility] IgM [Mass/volume] in Serum or Plasma [facility] Laboratory data interpretation [facility] OUTSIDE VENDOR CARDI AC OUTPATIENT EXTENDED RHYTHM RECORDING (WITHOUT TELEMETRY) OUTSIDE VENDOR CARDIAC OUTPATIENT EXTENDED RHYTHM RECORDING (WITHOUT TELEMETRY) Holter Routine Acute on chronic diastolic (congestive) heart failure (HCC) Chronic systolic HF (heart failure) (HCC) Ischemic cardiomyopathy Primary hypertension Shortness of breath Ordered: 12/29/2024 [facility] Comment on above: Ordered: 12/29/2024 Patient Education Gastroparesis ED Vomiting (Adult) [facility] Work Phone: Protein electrophore sis panel - Serum or Plasma [facility] Troponin T.cardiac [Mass/volume] in Serum or Plasma by High sensitivity method [facility] Payers Date Payer Category Payer Self-pay 2024 Medicare MEDICARE [id number] 2024 Private Health Insurance [employer] [id number] 2024 Medicare [id number] 2024 Unknown [id number] 2024 Medicaid [employer] [id number] 2024 Unknown [id number] 2024 [facility] [id number] 1960 Unknown [id number] 2.16840.1.477559.3.579.2. 65 1960 Unknown [id number] 2.16840.1.956955.3.579.2. 651 1960 Unknown [id number] 2.16840.1.553638.3.579.2. 651 1960 Unknown [id number] 2.840.1.036991.3.579.2. 651 Unknown [id number] Unknown Unknown [id number] Unknown [id number] Unknown [id number] 2.16840.1.257237.3.579.2. 462 Unknown [id number] 2.840.1.228391.3.579.2. 462 Unknown [id number] 2.840.1.004533.3.579.2. 462 Unknown [id number] 2.840.1.665448.3.579.2. 462 Unknown [id number] 2.840.1.289303.3.579.2. 462 Unknown [id number] 2.840.1.069178.3.579.2. 462 Unknown [id number] 2.840.1.498178.3.579.2. 462 Unknown [id number] 2.840.1.674093.3.579.2. 462 Unknown [id number] 2.840.1.232428.3.579.2. 462 Unknown [id number] 2.840.1.019145.3.579.2. 462 Unknown [id number] 2.840.1.926858.3.579.2. 462 Unknown [id number] 2.840.1.711630.3.579.2. 462 Unknown [id number] 2.840.1.071110.3.579.2. 462 Unknown [id number] 2.840.1.370100.3.579.2. 462 Social History Date Type Detail Facility Tobacco smoking stat [facility] Unknown if ever smoked [facility] Work Phone: Start: 1960 Sex Assigned At Female [facility] Start: 11-11-2012 Tobacco smoking stat us ALIS Smokes tobacco daily [facility] Start: 01-17-2022 Alcoholic beverage intake Current drinker of alcohol (finding) [facility] Start: 11-11-2012 Tobacco Comment 8 CIG PER DAY [facility] Start: 1960 Sex assigned at Not on file [facility] Start: 12-29-2024 End: 01-14-2025 Gender identity Not on file [facility] Start: 12-29-2024 End: 01-19-2025 Tobacco smoking status NHIS Ex-smoker [facility] Start: 05-30-2000 History of tobacco use Current smoke r [facility] Start: 05-30-2000 History of tobacco use Cigarette Smo ker [facility] Start: 12-29-2024 End: 01-14-2025 Cigarettes smoked current (pack per day) - Reported 1 [facility] Start: 12-29-2024 Tobacco use and exposure Smokeless tobacco non-user [facility] Start: 12-29-2024 End: 01-15-2025 Alcoholic beverage intake Ex-drinker (finding) [facility] Start: 09-17-2012 Adult Depression Screening Assessment 2 [facility] Start: 12-29-2024 Alcohol Comment 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 Never [facility] Goals Date Patient Goal Desired Activity /State Personal health goal Functional Status Date Assessment Result Facility 01-28-2025 Functional status Ambulates [facility] Work Phone: 01-14-2025 Total score [AUDIT-C] 0 01/15/20 25 8:55 AM Carrillo Du MD [facility] Mental Status Date Assessment Result Facility 01-27-2025 Cognitive function Level Of Consciousness Sedated [facility] Work Phone: 01-27-2025 Cognitive function Voice/Name [facility] Work Phone: Clinical Notes 12-29-2024 to 01-28-2025 Note Date & Type Note Facility 01-28-2025 Note [facility] Medical Records Department [address] [place] [address] Discharge Summary 01/28/25 1017 MR#: [id number] Acct: [id number] Name: ARIEL NGUYEN Rep #: [id number] : 1960 65 From: Cathie Aldana DO PCP: Sabine Power PA-C Status:DIS IN Location: [place] [address] Providers Date of Admission: 01/19/25 Date of Discharge: 01/28/25 Primary Care Physician: Sabine Power PA-C Consultations 01/25/25 09:41 Consult: Gastroenterology Routine Consulting Provider: [facility] Reason for Consult: intractable nausea and vomiting EMERGENT Consult: No MD Notified: Yes Date Notified: 01/25/25 Time Notified: 09:41 Method of Notification: Text Reason For Visit: INTRACTABLE NAUSEA AND VOMITING Diagnosis Discharge Diagnosis (1) Gastroparesis: Status: Acute Code(s): K31.84 - Gastroparesis Medications at Discharge Home Medications levothyroxine 88 mcg capsule 88 mcg PO DAILY thyroid 10/07/23 alprazolam 0.25 mg tablet 0.25 mg PO DAILY PRN anxiety 01/19/25 atorvastatin 80 mg tablet 80 mg PO QHS cholesterol 01/19/25 clopidogrel 75 mg tablet 75 mg PO DAILY antiplatelet 01/19/25 desvenlafaxine succinate 50 mg tablet,extended release 24 hr 50 mg PO DAILY mental health 01/19/25 hydroxyzine HCl 25 mg tablet 50 mg PO BID allergies 01/19/25 oxcarbazepine 150 mg tablet 150 mg PO BID seizures 01/19/25 quetiapine 25 mg tablet 25 - 50 mg PO QHS PRN PRN insomnia 01/19/25 apixaban 5 mg tablet (Eliquis) 5 mg PO BID #60 tabs 01/28/25 furosemide 40 mg tablet 40 mg PO DAILY #30 tabs 01/28/25 haloperidol 2 mg tablet 2 mg PO TID PRN nausea and vomiting #90 tabs 01/28/25 metoclopramide HCl 5 mg tablet (Reglan) 5 mg PO Q8H #21 tabs 01/28/25 metoprolol tartrate 50 mg tablet 50 mg PO BID #60 tabs 01/28/25 pantoprazole 40 mg tablet,delayed release 40 mg PO BID #60 tabs 01/28/25 scopolamine base 1 mg over 3 days transdermal patch 1 patch transdermal Q3D #10 ea 01/28/25 Hospital Course Operations None Procedures 2-D Echocardiogram, EGD, EKG and - (MRCP/abdominal and pelvis CT/CTA chest/gallbladder ultrasound) Summary of Care Provided Minutes Spent on Discharge: 41 Hospital Course: Ms. Nguyen is a 65-year-old white female with previous CABG and July 2024 in [place] who presented to the emergency department at [facility] on 01/19/2025 with chief complaint of intractable nausea and vomiting. Patient is a daily user of marijuana Gummies. Apparently her symptoms started 48 hours prior to presentation after she ate some vegetables with a try and dressing on it. Vomitus was nonbloody and nonbilious and she had multiple episodes. She was seen in the emergency department prior to being admitted and discharged home with several medications that she did feel better and wanted to try to go home. She has been trying to use the Phenergan suppositories that were given to her with no relief. She has known history of gastroparesis and in conjunction with her marijuana use it was felt that this was likely hyperemesis from that plus potentially gastroparesis related to her marijuana use or otherwise. She was tried on multiple medications throughout her hospital stay and still by 01/25/2025 she was still having significant nausea and vomiting. Her labs were overtly unremarkable other than some mild transaminitis during her stay but that was felt likely related to passive congestion as she did develop a bout of heart failure which corrected quickly with diuresis. We did obtain an echocardiogram for that. She had known issues with her mitral valve and plans on being evaluated on February 11 at [facility]. Her echocardiogram which was done on 01/25/2025 showed an EF of 60 to 65% and normal LV function however she had 3+ mitral valve insufficiency and moderate to severe aortic valve stenosis with a valve score area of 0.9 cm???. She had no pulmonary regurgitation or hypertension. She did require oxygen up to 6 L but again, corrected very quickly. She also developed atrial fibrillation during her hospitalization which was a new diagnosis for her. She was maintained on beta-alyssa with some titration during her stay and ultimately discharged on her baseline dose and Eliquis was initiated. Given the lack of resolution, multiple imaging studies were pursued during her hospitalization. She had a CT of the abdomen/pelvis which showed tiny bones or sludge in the gallbladder lumen and ultrasound was recommended, punctate calcifications in the body of the pancreas and sigmoid diverticulosis without diverticulitis. Gallbladder ultrasound showed sludge within the gallbladder. When she became hypoxic we did obtain a CTA of her chest and this showed adenopathy in the AP window with precarinal lymph node that was felt possibly related to her previous sternotomy, heterogeneous increased density in t (more content not included)... [facility] 01-27-2025 Consult note Note Date/Time January 27, 2025 1: 19pm [facility] Medical Records Department [address] [place] [address] Anesthesia Postop Eval I 01/27/25 1318 MR#: [id number] Acct: [id number] Name: ARIEL NGUYEN Rep #:[id number] : 1960 65 From: Jona Jennings PCP: Sabine Power PA-C Status:ADM I N Y Race: C Location: [place] [address] Anesthesia: Postop Eval I Current Vital Signs Temperature: 97.1 F Pulse Rate: 61 Blood Pressure: 84/63 Respiratory Rate: 16 Pulse Ox: 93 Oxygen Delivery Method: Room Air Assessment Airway patent: Yes Spontaneous unlabored respirations: Yes Mental status: Asleep nausea: No Vomiting: No Anesthesia Complication: No Fluid Hydration Crystalloid volume administer (ml): 300 Total IV fluid infused: 300 Progress Note Anesthesia document: Postop Eval 1 completed: Yes 01/27/25 1319 <Electronically signed by Jona Jennings > Date _ Jona Lemons Signature: Date CC: ~ Signed [facility] Work Phone: 1(384) 908-565708-28-2025 Progress note Author Tomas Friend [facility] Note Date/Time January 27, 2025 12 :31pm [facility] Medical Records Department [address] [place] [address] Progress Note 01/27/25 1230 MR#: [id number] Acct: [id number] Name: ARIEL NGUYEN Rep #:[id number] : 1960 65 From: Tomas Marroquin DO PCP: Sabine Power PA-C Status:ADM I N Location: [place] [address] Progress Note Patient has been having abdominal pain with nausea and cramping. She is for EGDtoday. Physical Exam Const alert, oriented x3, no apparent distress and healthy appearing General Appearance: cooperative GI normal to inspection, nondistended, normoactive bowel sounds, soft to palpation,non-tender and non-distended Percussion: normal to percussion Rectal Exam: deferred Assessment & Plan Assessment/Plan (1) Gastroparesis: PLAN: Patient will undergo EGD with possible Dobbhoff tube placement. She was explained alternatives, risk and benefits include understanding bleeding, infection, subsequent perforation, need for return to . She will have an ASA of 3. Visit Charges Inpatient E&M: 93120 Init Hosp L2 01/27/25 1231 <Electronically signed by Tomas Marroquin DO> Tomas Marroquin DO Cosigner Signature (if applicable): CC: ~ Signed [facility] Work Phone: 1(610) 771-480108-28-2025 Consult note Author Cristiano Cartwright [facility] Note Date/Time January 27, 2025 11 :49am [facility] Medical Records Department [address] [place] [address] Pre-Anesthesia Evaluation 01/27/25 1137 MR#: [id number] Acct: [id number] Name: ARIEL NGUYENYE Rep #:[id number] : 1960 65 From: Cristiano Cartwright MD PCP: Sabine Power PA-C Status:ADM I N Y Race: C Location: [place] [address] 3-1 ASA Classification* ASA Classification ASA Classification: 3 and E Assessment & Plan Anesthesia* Anesthesia Assessment Anesthesia Assessment: Discussed sedation and/or anesthesia options, risks, benefits, and alternatives with patient/parents/legal guardian/POA. Questions invited. The patient/parents/legal guardian/POA seems to understand and agrees to proceedwith anesthesia plan. Reviewed the physical assessment, medical history, allergy history and patient home medications list prior to surgery/procedure/anesthetic and documented any changes. Performed airway and anesthesia risk assessments. Anesthesia Type Anesthesia Type: MAC History Source History Obtained from:: Patient and Chart Anesthesia Focused Assessment* Temperature: 97.3 F Pulse Rate: 58 Blood Pressure: 105/61 Respiratory Rate: 18 Pulse Ox: 97 Oxygen Delivery Method: Room Air Oxygen Flow Rate (L/min): 2 Airway Assessment Mouth opens: >3 cm Mallampati Score: I Teeth Condition: Caps/Crowns (Patient has several crowns. They are all tight.) Neck Range of motion (ROM): Limited ROM (Slight Decrease) Labs Anesthesia Preop lab: CBC WBC 6.3 K/mm3 (4.4-11.0) 01/27/25 04:20 01/27/25 RBC 3.82 M/mm3 (4.2-5.4) L 01/27/25 04:20 01/27/25 Hgb 11.4 g/dL (12.0-15.0) L 01/27/25 04:20 5 Hct 31.8 % (37-47) L 01/27/25 04:20 01/27/25 Plt Count 176 K/mm3 (150-450) 01/27/25 04:20 01/27/25 CHEMISTRY Potassium 3.1 mmol/L (3.3-5.1) L 01/27/25 04:20 01/27/25 Sodium 138 mmol/L (133-145) 01/27/25 04:20 01/27/25 Magnesium 2.4 mg/dL (1.5-2.2) H 01/26/25 04:43 01/26/25 Phosphorus 3.9 mg/dL (2.7-4.5) 01/26/25 04:43 01/26/25 BUN 13 mg/dL (4-19) 01/27/25 04:20 01/27/25 Creatinine 0.96 mg/dL (0.70-1.20) 01/27/25 04:20 01/27/25 Glucose 109 mg/dL (70-99) H 01/27/25 04:20 01/27/25 TSH 1.780 uIU/mL (0.300-4.200) 01/25/25 19:30 01/01 11/24 COAG PT 13.8 SECONDS (11.7-14.9) 01/22/25 19:10 Pre-Assessment Diagnosis/Proposed Procedure Planned Operative Procedure(s): Esophagogastroduodenoscopy with biopsy, dilationand possible placement of Dobbhoff tube. 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 When Was Last Pacemaker Check QUESTION #4 FULL TEXT: You/Your Family Experience fever (hyperthermia) with Anesthesia Last Oral Intake Last Oral intake: Last Oral Intake NPO since 00:00 01/27/25 10:12 Meds taken in AM with sips of Yes 01/27/25 10:12 water? Meds patient instructed to take am of surgery Any additional information?: Yes Meds taken in AM with sips of water?: Yes PONV PONV - city supervisor: PONV - city supervisor Female HX of Motion Sickness HX of N/V After Surgery Non-Smoker Duration of Surgery greater than 60 minutes Number of Risk Factors PONV Score Height & Weight Height & Weight: Anesthesia: Height & Weight Height 5 ft 6 in 01/27/25 10:12 Weight: 81.2 kg 01/27/25 10:12 Body Mass Index (BMI) 28.8 01/27/25 10:12 Respiratory Assessment Respiratory Assessment - city supervisor: Respiratory Tract Infection Hx - city supervisor Hx Respiratory Tract Infection No 01/27/25 10:15 STOP Sleep Apnea STOP Sleep Apnea - city supervisor: STOP Sleep Apnea - city supervisor Hx Hypertension Yes 01/19/25 14:16 Hx Sleep Apnea Yes 01/19/25 14:16 CPAP Yes 01/19/25 14:16 BIPAP No 01/19/25 14:16 Do you snore loudly (louder than talking or can be heard Do you often feel tired/ fatigued/ sleepy during daytime? Has anyone observed you stop breathing during sleep? STOP Results Positive 01/19/25 14:16 QUESTION #5 FULL TEXT : Do you snore loudly (louder than talking or can be heard through closed doors)? 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 Specify any problems Hx of Preganancy in last 3 N/A 01/19/25 14:16 Months Nurse Filling Out Transfusion [id number] 01/19/25 14:16 & Questions: Date: 01/19/25 01/19/25 14:16 Time: 14:24 01/19/25 14:16 Patient unable to answer at this time (ie. confused, unrespo /Reproduction History /Reproductive History - city supervisor: /Reproductive Hx- city supervisor Hx Now Gestational Age (in weeks): EDC: Hx Hx Para Hx Section SAB Active Medications Active Medications: Current Medications Generic Name Dose Route Start Last Admin Trade Name Freq PRN Reason Stop Dose Admin Acetaminophen 650 mg 01/19/25 14:15 01/23/25 03:28 Acetaminophen 325 Mg Tablet PO 650 mg Q6H PRN PRN Administration Pain 1-10 Or Fever >100.7 Al Hydroxide/Mg Hydroxide 30 ml 01/23/25 16:12 01/25/25 08:34 Mag Hydrox/Al Hydrox/Simeth 30 Ml Udc PO 30 ml Q2H PRN Administration REFLUX Apixaban 5 mg 01/23/25 10:00 01/26/25 22:00 Apixaban 5 Mg Tablet PO 5 mg BID MICHAEL Administration Atorvastatin Calcium 80 mg 01/19/25 22:00 01/26/25 22:00 Atorvastatin Calcium 80 Mg Tablet PO 80 mg QHS MICHAEL Administration Clopidogrel Bisulfate 75 mg 01/20/25 10:00 01/26/25 10:08 Clopidogrel Bisulfate 75 Mg Tablet PO 75 mg DAILY MICHAEL Administration Furosemide 40 mg 01/27/25 12:00 Furosemide 40 Mg Tablet PO DAILY MICHAEL Protocol Haloperidol Lactate 4 mg 01/25/25 22:00 01/27/25 09:42 Haloperidol Lactate 5 Mg/Ml Vial IV Not Given Q4 MICHAEL Protocol Hydroxyzine Pamoate 50 mg 01/19/25 22:00 01/26/25 21:57 Hydroxyzine Jo 25 Mg Capsule PO 50 mg BID MICHAEL Administration Sodium Chloride 250 mls @ 15 mls/hr 01/20/25 13:40 IV .[id number] PRN Saline Flush Sodium Chloride 250 mls @ 15 mls/hr 01/20/25 13:40 IV .[id number] PRN Additional IVPB Infusion Pantoprazole Sodium 40 mg/ 100 mls @ 300 mls/hr 01/25/25 22:00 01/26/25 22:20 Sodium Chloride IV Infused Q12 MICHAEL Infusion Sodium Chloride 1,000 mls @ 15 mls/hr 01/27/25 11:30 01/27/25 11:28 IV 15 mls/hr .Q48H MICHAEL Administration Levothyroxine Sodium 88 mcg 01/20/25 06:00 01/27/25 05:53 Levothyroxine 88 Mcg Tablet PO 88 mcg DAILY@0600 MICHAEL Administration Lorazepam 1 mg 01/26/25 00:00 01/27/25 05:52 Lorazepam 2 Mg/Ml Syringe IV 1 mg Q6 MICHAEL Administration Losartan Potassium 100 mg 01/20/25 10:00 01/26/25 10:07 Losartan Potassium 100 Mg Tablet PO 100 mg DAILY MICHAEL Administration Protocol Meclizine HCl 50 mg 01/22/25 08:00 01/27/25 05:53 Meclizine Hcl 25 Mg Tablet PO 50 mg TID MICHAEL Administration Metoclopramide HCl 10 mg 01/20/25 00:00 01/27/25 05:52 Metoclopramide 10 Mg/2 Ml Vial IV 10 mg Q6 MICHAEL Administration Metoprolol Tartrate 50 mg 01/27/25 10:00 Metoprolol Tartrate 50 Mg Tablet PO BID MICHAEL Protocol Polyethylene Glycol 17 gm 01/20/25 15:00 01/26/25 10:09 Polyethylene Glycol 3350 17 Gm Packet PO Not Given DAILY MICHAEL Quetiapine Fumarate 50 mg 01/21/25 22:00 01/26/25 22:00 Quetiapine 25 Mg Tablet PO 50 mg QHS MICHAEL Administration Protocol Scopolamine HBr 1 patch 01/25/25 14:00 01/26/25 13:23 Scopolamine 1mg/72hr Patch TD 1 patch Q3D MICHAEL Administration Sodium Chloride 10 - 40 ml 01/20/25 13:40 01/26/25 05:01 0.9% Saline Lock 10 Ml Syringe IV 10 ml UD PRN Administration SALINE FLUSH Venlafaxine HCl 37.5 mg 01/20/25 10:00 01/26/25 11:20 Venlafaxine Xr 37.5 Mg Capsule PO 37.5 mg DAILY MICHAEL Administration [facility] Medical History (Updated 01/27/25 @ 11:[address] Cristiano Cartwright MD) Coronary atherosclerosis Right shoulder pain Home Medications ?Medication ?Instructions ?Recorded ?Last Taken ?Type levothyroxine 88 mcg capsule 88 mcg PO DAILY 10/07/23 Unknown History losartan 25 mg tablet 50 mg PO DAILY 10/07/23 Unkn own History alprazolam 0.25 mg tablet 0.25 mg PO DAILY PRN anxiety 01/19/25 Unknown History atorvastatin 80 mg tablet 80 mg PO QHS 01/19/25 Unknow n History clopidogrel 75 mg tablet 75 mg PO DAILY 01/19/25 Unkn own History desvenlafaxine succinate 50 mg 50 mg PO DAILY 01/19/25 Unknown History tablet,extended release 24 hr furosemide 20 mg tablet 20 mg PO DAILY 01/19/25 Unkn own History hydroxyzine HCl 25 mg tablet 50 mg PO BID 01/19/25 Unk nown History metoprolol tartrate 25 mg tablet 25 mg PO DAILY Hypert ension 01/19/25 01/27/25 History oxcarbazepine 150 mg tablet 150 mg PO BID 01/19/25 Unk nown History pantoprazole 40 mg tablet,delayed 40 mg PO DAILY 01/19 Unknown History release quetiapine 25 mg tablet 25 - 50 mg PO QHS PRN PRN in somnia 01/19/25 Unknown History Allergy/AdvReac Type Severity Reaction Status Date / Time clindamycin AdvReac Other Verified 01/19/25 08:21 Penicillins AdvReac Other Verified 01/19/25 08:21 Sulfa (Sulfonamide AdvReac Other Verified 01/19/25 08:21 Antibiotics) Family History Father Hypertension CVA (cerebral vascular accident) Myocardial infarction Arthritis Mother Arthritis Cancer Sister Hypertension Arthritis Cancer Surgical History Hx of CABG H/O thumb surgery H/O wrist surgery Social History household members: significant other Smoking Status: Former smoker alcohol intake: never what type of physical activity do you participate in: walking Review of Systems (Anesthesia) ROS Narrative System reviewed and no additional complaints, except as documented. 01/27/25 1149 <Electronically signed by Cristiano bansal MD> Date _ Cristiano Cartwright MD Cosigner Signature: Date CC: ~ Signed [facility] Work Phone: 1(233) 737-221808-28-2025 Progress note Author Cathie Aldana [facility] Note Date/Time January 27, 2025 11 :38am [facility] Medical Records Department [address] [place] [address] Progress Note - Hospitalist 01/27/25 0730 MR#: [id number] Acct: [id number] Name: ARIEL NGUYEN Rep #:[id number] : 1960 65 From: Cathie Aldana DO PCP: Sabine Power PA-C Status:ADM I N Location: [place] [address] Reason for Visit Chief Complaint: Persistent nausea and vomiting Subjective Subjective Patient looks good and states she feels well today. No nausea or vomiting currently. Has not had any through the night. Plan is for EGD later today. I discussed with her that if she does well with the EGD and no significant findings are present we will progress her diet and see how she does throughout the day today with possible discharge tomorrow as long as she was tolerating p.o. without difficulty. Objective Data Objective Data Vital Signs: Vital Signs Temp Pulse Resp BP Pulse Ox O2 Del Method O2 Flow Rate 98.0 F 58 L 16 89/51 L 98 Room Air 2 01/27/25 06:01 01/27/25 06:01 01/27/25 06:01 01/27/25 06:01 01/27/25 06:01 01/27/25 06:01 01/25/25 14:00 Oxygen Flow Rate (L/min) 2 Oxygen Delivery Method Room Air Weight: 81.2 kg Body Mass Index (BMI) 28.8 Intake & Output: Intake and Output for Last 24 Hours 01/25/25 01/26/25 01/27/25 23:59 23:59 23:59 Intake Total 100 / 100 200 / 200 Output Total 700 / 700 Balance -600 / -600 200 / 200 Lab / Micro Data 01/27/25 04:20 01/27/25 04:20 Labs: Laboratory Results - last 24 hr 01/27/25 04:20: WBC 6.3, RBC 3.82 L, Hgb 11.4 L, Hct 31.8 L, MCV 83.2, MCH 29.8,MCHC 35.8, RDW Std Deviation 39.8, RDW Coeff of Jaimie 13.4, Plt Count 176, MPV 10.1, Immature Gran % (Auto) 0.300, Neut % (Auto) 53.4, Lymph % (Auto) 33.0, Assumption % (Auto) 9.2, Eos % (Auto) 3.5, Baso % (Auto) 0.6, Absolute Neuts (auto) 3.4, Absolute Lymphs (auto) 2.08, Nucleated RBC % 0, Sodium 138, Potassium 3.1 L, Chloride 96 L, Carbon Dioxide 30.7, Anion Gap 12, BUN 13, Creatinine 0.96, Estim Creat Clear Calc 62.77, Est GFR (MDRD) Non-Af 66, BUN/Creatinine Ratio 13.3, Glucose 109 H, Calcium 8.9, Total Bilirubin 0.89, AST 32, ALT 84 H, Alkaline Phosphatase 127 H, Total Protein 6.0, Albumin 3.6, Globulin 2.4, Albumin/Globulin Ratio 1.5 Micro: Microbiology 01/19/25 20:30 Urine, Clean Catch Urine Culture - Final Mixed Gram Pos & Gram Neg Org Streptococcus group B Radiography Diagnostic Testing: Radiology Impression MRCP 01/26/25 09:15 IMPRESSION: There is a 1 cm pleural effusion on the right and left. Negative MRCP. Reading Location: [facility] Physical Exam Const alert, oriented x3, no apparent distress, average body habitus and healthy appearing Constitutional Narrative: Upper middle-aged, white female, standing up walking around the room, appears that she is feeling much better, very pleasant, much more talkative HEENT normocephalic, head/scalp atraumatic, hearing grossly normal bilaterally and moist oral mucous membranes HEENT Narrative: Mallampati 3, no thrush Resp normal respiratory effort, no retractions, no use of accessory muscles and clearto auscultation bilaterally Auscultation: Negative for crackles, rhonchi or wheezes Cardio regular rate, regular rhythm, S1 normal heart sound, no rub, no gallops and no clicks; Negative for S2 normal heart sound or no murmurs Cardio Narrative: 3 out of 6 systolic murmur loudest at left lower sternal border but also presentat right upper sternal border with fairly significant prominence GI normal to inspection, nondistended, normoactive bowel sounds, soft to palpation and non-tender Extremity no clubbing, cyanosis or edema Extremity Narrative: Pedal pulses are 2+, radial pulses are 2+ Neuro moves all extremities and no focal motor deficits Speech: speech normal Psych affect normal Psych Narrative: Very pleasant, feels if she is feeling much better, very interactive and talkative today Assessment & Plan Assessment/Plan (1) Nausea and vomiting: (2) Transaminitis: (3) Right shoulder pain: (4) Acute hypoxemic respiratory failure: (5) Aortic valve stenosis, acquired: (6) Mitral valve insufficiency: (7) Acute heart failure with preserved ejection fraction (HFpEF): PLAN: Plan Acute hypoxic respiratory failure secondary to acute decompensated HFpEF - Resolved--> patient remains on room air through the night - Echocardiogram performed and shows an EF of 60 to 65% with aortic valve squarearea of 0.98 cm? and a peak aortic valve gradient of 50.9 mmHg and a mean aorticvalve gradient of 32.3 mmHg, mild pulmonary regurgitation, mitral valve has severe calcification and 3+ insufficiency -Patient has upcoming appointment in mid January with [facility] for ALEXIS and further workup for valvular disorders. Per discussion with her she was not aware her aortic valve was problematic. She states that her CABG was done in July in [place] -Continue p.o. Lasix transition to 40 daily--> was on 20 daily at home - Will check ambulatory pulse ox prior to discharge - Monitor weight Intractable nausea and vomiting/Gastroparesis - Has been ongoing and highly suspect cannabis induced hyperemesis however patient is not improving despite multiple medical therapies - Much better today - MRCP was done was unremarkable. - Plans for EGD today - GI is following and ordered significant workup--> all lab is still pending - If no significant findings on EGD will transition to regular diet and see how she tolerates if she does well should be able to discharge home tomorrow - We discussed again the importance of cannabis cessation Transaminitis -AST is normalized and ALT is down significantly - repeat in am PAF with RVR - Patient had new onset A-fib with RVR but has self converted into normal sinus rhythm -Remains in sinus rhythm - Continue Eliquis - Continue metoprolol but decrease to 50 twice daily - Patient follows up at [facility] - Echocardiogram as noted above suspect this is valvular in nature History of mitral valve regurgitation - Patient with recent CABG and mitral valve regurgitation was being followed by cardiology at [facility] - Patient has upcoming appointment on March 01 and possible ALEXIS Aortic valve stenosis - Severe on echo - Needs ALEXIS and has upcoming appointment with [facility] CAD/essential hypertension/hyperlipidemia - Continue atorvastatin - Continue clopidogrel - Continue Lasix but decrease to 40 daily - continue losartan but decrease to 50 mg - Continue metoprolol but decrease to 50 mg twice daily GERD -Continue IV PPI twice daily Depression/anxiety/insomnia - Continue home medication regimen Hypothyroidism - Continue home levothyroxine DVT prophylaxis - Patient is on Eliquis for A-fib CODE STATUS - Full code Charges/Coding Visit Charges Inpatient E&M: 69240 Subs Hosp L2 01/27/25 1138 <Electronically signed by Cathie Aldana DO> Vesta Signature (if applicable): CC: ~ Signed [facility] Work Phone: 1(302) 353-200808-28-2025 Consult note [facility] Medical Records Department [address] [place] [address] Anesthesia Postop Eval I 01/27/258 MR#: [id number] Acct: [id number] Name: ARIEL NGUYEN Rep #:[id number] : 1960 65 From: Jona Jennings PCP: Sabine Power PA-C Status:ADM I N Y Race: C Location: [place] [address] Anesthesia: Postop Eval I Current Vital Signs Temperature: 97.1 F Pulse Rate: 61 Blood Pressure: 84/63 Respiratory Rate: 16 Pulse Ox: 93 Oxygen Delivery Method: Room Air Assessment Airway patent: Yes Spontaneous unlabored respirations: Yes Mental status: Asleep nausea: No Vomiting: No Anesthesia Complication: No Fluid Hydration Crystalloid volume administer (ml): 300 Total IV fluid infused: 300 Progress Note Anesthesia document: Postop Eval 1 completed: Yes 01/27/259 > Date _ Jona Lemons Signature: Date CC: ~ Signed [facility]08-28-2025 Procedure note [facility] Medical Records Department [address] [place] [address] EGD Report MR#: [id number] Acct: [id number] Name: ARIEL NGUYEN Rep #:[id number] : 1960 65 From: Tomas Marroquin DO PCP: Sabine Power PA-C Status:ADM I N Patient Name: Ariel Nguyen Procedure Date: 01/27/2025 12:36 PM Date of : 1960 Age: 65 Procedure: Upper GI endoscopy Indications: Epigastric abdominal pain, Functional Dyspepsia, Indigestion, Suspected esophageal reflux, Gastroparesis Providers: Tomas Marroquin DO Medicines: Monitored Anesthesia Care Patient Profile: This is a 65 year old female. Refer to note in patient chart for documentation of history and physical. Patient has symptoms of acute epigastric abdominal pain and acute dyspepsia. Complications: No immediate complications. Procedure: Pre-Anesthesia Assessment: - Prior to the procedure, a History and Physical was performed, and patient medications and allergies were reviewed. The patient is competent. The risks and benefits of the procedure and the sedation options and risks were discussed with the patient. All questions were answered and informed consent was obtained. Patient identification and proposed procedure were verified by the physician in the pre-procedure area. Mental Status Examination: alert and oriented. Airway Examination: normal oropharyngeal airway and neck mobility. Respiratory Examination: clear to auscultation. CV Examination: normal. Prophylactic Antibiotics: The patient does not require prophylactic antibiotics. Prior Anticoagulants: The patient has taken no anticoagulant or antiplatelet agents except for NSAID medication. ASA Grade Assessment: II - A patient with mild systemic disease. After reviewing the risks and benefits, the patient was deemed in satisfactory condition to undergo the procedure. The anesthesia plan was to use monitored anesthesia care (MAC). Immediately prior to administration of medications, the patient was re-assessed for adequacy to receive sedatives. The heart rate, respiratory rate, oxygen saturations, blood pressure, adequacy of pulmonary ventilation, and response to care were monitored throughout the procedure. The physical status of the patient was re-assessed after the procedure. After obtaining informed consent, the endoscope was passed under direct vision. Throughout the procedure, the patient's blood pressure, pulse, and oxygen saturations were monitored continuously. The Endoscope was introduced through the mouth, and advanced to the third part of the duodenum. Small bowel enteroscopy was deemed necessary. The upper GI endoscopy was accomplished without difficulty. The patient tolerated the procedure well. Scope In: 12:54:24 PM Scope Out: 12:58:22 PM Total Procedure Duration Time 0 hours 3 minutes 58 seconds Findings: LA Grade B (one or more mucosal breaks greater than 5 mm, not extending between the tops of two mucosal folds) esophagitis with no bleeding was found 34 to 40 cm from the incisors. Patchy moderate inflammation characterized by erosions and erythema was found in the prepyloric region of the stomach and at the pylorus. Biopsies were taken with a cold forceps for histology. Biopsies were taken with a cold forceps for Helicobacter pylori testing. Verification of patient identification for the specimen was done. Estimated blood loss was minimal. No gross lesions were noted in the entire examined duodenum. Impression: - LA Grade B reflux esophagitis with no bleeding. - Acute gastritis. Biopsied. - No gross lesions in the entire examined duodenum. Recommendation: - Discharge patient to home. - Resume previous diet. - Continue present medications. - Await pathology results. Procedure Code(s): --- Professional --- 02247, Small intestinal endoscopy, enteroscopy beyond second portion of duodenum, not including ileum; with biopsy, single or multiple CPT copyright 2021 [employer]. All rights reserved. The codes documented in this report are preliminary and upon beam sealer review may be revised to meet current compliance requirements. Tomas Marroquin DO 01/27/2025 1:11:11 PM This report has been signed electronically. Number of Addenda: 0 Note Initiated On: 01/27/2025 12:36 PM 01/27/25 1311 Date _ Tomas Marroquin DO Cosigner Signature: Date (if indicated) CC: CLARITZA Power; Tomas Marroquin DO ~ Date Dictated: 01/27/25 1236 Date Transcribed: Network Operations Analyst: BRISEIDA Signed [facility]08-28-2025 Procedure note [facility] Medical Records Department [address] [place] [address] Provation Physician Letter MR#: [id number] Acct: [id number] Name: ARIEL NGUYEN Rep #:[id number] : 1960 65 From: Tomas Marroquin DO PCP: Sabine Power PA-C Status:ADM I N 01/27/2025 Sabine Power Re : Upper GI endoscopy procedure for Ariel Power This procedure was performed on December. My impressions and recommendations are as follows: Impressions : - LA Grade B reflux esophagitis with no bleeding. - Acute gastritis. Biopsied. - No gross lesions in the entire examined duodenum. Recommendations : - Discharge patient to home. - Resume previous diet. - Continue present medications. - Await pathology results. My findings are described in the full procedure note, which is enclosed. If I can be of further assistance, please feel free to contact me at . Sincerely, Tomas Marroquin DO 01/27/2025 1:11:11 PM This report has been signed electronically. 01/27/25 1311 Date _ Tomas Beltran Signature: Date (if indicated) CC: CHELE Fuentes; CHELE Alcocer; CLARITZA Power; Dr. Cathie Aldana DO; Dr. Franky Sy DO; Dr. John Casey MD; FRANCIS Weeks; Tomas Marroquin DO ~ Date Dictated: 01/27/25 1236 Date Transcribed: Network Operations Analyst: RF Signed [facility]08-28-2025 Progress note [facility] Medical Records Department [address] [place] [address] Progress Note 01/27/25 1230 MR#: [id number] Acct: [id number] Name: ARIEL NGUYEN Rep #:[id number] : 1960 65 From: Tomas Marroquin DO PCP: Sabine Power PA-C Status:ADM I N Location: [place] [address] Progress Note Patient has been having abdominal pain with nausea and cramping. She is for EGDtoday. Physical Exam Const alert, oriented x3, no apparent distress and healthy appearing General Appearance: cooperative GI normal to inspection, nondistended, normoactive bowel sounds, soft to palpation,non-tender and non-distended Percussion: normal to percussion Rectal Exam: deferred Assessment & Plan Assessment/Plan (1) Gastroparesis: PLAN: Patient will undergo EGD with possible Dobbhoff tube placement. She was explained alternatives, risk and benefits include understanding bleeding, infection, subsequent perforation, need for return to . She will have an ASA of 3. Visit Charges Inpatient E&M: 08905 Init Hosp L2 01/27/25 1231 Tomas Marroquin DO Cosigner Signature (if applicable): CC: ~ Signed [facility]08-28-2025 Consult note [facility] Medical Records Department [address] [place] [address] Pre-Anesthesia Evaluation 01/27/25 1137 MR#: [id number] Acct: [id number] Name: ARIEL NGUYEN Rep #:[id number] 2 : 1960 65 From: Cristiano Cartwright MD PCP: Sabine Power PA-C Status:ADM I N Y Race: C Location: [place] [address] 3-1 ASA Classification* ASA Classification ASA Classification: 3 and E Assessment & Plan Anesthesia* Anesthesia Assessment Anesthesia Assessment: Discussed sedation and/or anesthesia options, risks, benefits, and alternatives with patient/parents/legal guardian/POA. Questions invited. The patient/parents/legal guardian/POA seems to understand and agrees to proceedwith anesthesia plan. Reviewed the physical assessment, medical history, allergy history and patient home medications list prior to surgery/procedure/anesthetic and documented any changes. Performed airway and anesthesia risk assessments. Anesthesia Type Anesthesia Type: MAC History Source History Obtained from:: Patient and Chart Anesthesia Focused Assessment* Temperature: 97.3 F Pulse Rate: 58 Blood Pressure: 105/61 Respiratory Rate: 18 Pulse Ox: 97 Oxygen Delivery Method: Room Air Oxygen Flow Rate (L/min): 2 Airway Assessment Mouth opens: >3 cm Mallampati Score: I Teeth Condition: Caps/Crowns (Patient has several crowns. They are all tight.) Neck Range of motion (ROM): Limited ROM (Slight Decrease) Labs Anesthesia Preop lab: CBC WBC 6.3 K/mm3 (4.4-11.0) 01/27/25 04:20 01/27/25 RBC 3.82 M/mm3 (4.2-5.4) L 01/27/25 04:20 01/27/25 Hgb 11.4 g/dL (12.0-15.0) L 01/27/25 04:20 5 Hct 31.8 % (37-47) L 01/27/25 04:20 01/27/25 Plt Count 176 K/mm3 (150-450) 01/27/25 04:20 01/27/25 CHEMISTRY Potassium 3.1 mmol/L (3.3-5.1) L 01/27/25 04:20 01/27/25 Sodium 138 mmol/L (133-145) 01/27/25 04:20 01/27/25 Magnesium 2.4 mg/dL (1.5-2.2) H 01/26/25 04:43 01/26/25 Phosphorus 3.9 mg/dL (2.7-4.5) 01/26/25 04:43 01/26/25 BUN 13 mg/dL (4-19) 01/27/25 04:20 01/27/25 Creatinine 0.96 mg/dL (0.70-1.20) 01/27/25 04:20 01/27/25 Glucose 109 mg/dL (70-99) H 01/27/25 04:20 01/27/25 TSH 1.780 uIU/mL (0.300-4.200) 01/25/25 19:30 01/01 11/24 COAG PT 13.8 SECONDS (11.7-14.9) 01/22/25 19:10 Pre-Assessment Diagnosis/Proposed Procedure Planned Operative Procedure(s): Esophagogastroduodenoscopy with biopsy, dilationand possible placement of Dobbhoff tube. 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 When Was Last Pacemaker Check QUESTION #4 FULL TEXT: You/Your Family Experience fever (hyperthermia) with Anesthesia Last Oral Intake Last Oral intake: Last Oral Intake NPO since 00:00 01/27/25 10:12 Meds taken in AM with sips of Yes 01/27/25 10:12 water? Meds patient instructed to take am of surgery Any additional information?: Yes Meds taken in AM with sips of water?: Yes PONV PONV - city supervisor: PONV - city supervisor Female HX of Motion Sickness HX of N/V After Surgery Non-Smoker Duration of Surgery greater than 60 minutes Number of Risk Factors PONV Score Height & Weight Height & Weight: Anesthesia: Height & Weight Height 5 ft 6 in 01/27/25 10:12 Weight: 81.2 kg 01/27/25 10:12 Body Mass Index (BMI) 28.8 01/27/25 10:12 Respiratory Assessment Respiratory Assessment - city supervisor: Respiratory Tract Infection Hx - city supervisor Hx Respiratory Tract Infection No 01/27/25 10:15 STOP Sleep Apnea STOP Sleep Apnea - city supervisor: STOP Sleep Apnea - city supervisor Hx Hypertension Yes 01/19/25 14:16 Hx Sleep Apnea Yes 01/19/25 14:16 CPAP Yes 01/19/25 14:16 BIPAP No 01/19/25 14:16 Do you snore loudly (louder than talking or can be heard Do you often feel tired/ fatigued/ sleepy during daytime? Has anyone observed you stop breathing during sleep? STOP Results Positive 01/19/25 14:16 QUESTION #5 FULL TEXT : Do you snore loudly (louder than talking or can be heard through closeddoors)? 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 Specify any problems Hx of Preganancy in last 3 N/A 01/19/25 14:16 Months Nurse Filling Out Transfusion LVAUGHT 01/19/25 14:16 & Questions: Date: 01/19/25 01/19/25 14:16 Time: 14:24 01/19/25 14:16 Patient unable to answer at this time (ie. confused, unrespo /Reproduction History /Reproductive History - city supervisor: /Reproductive Hx- city supervisor Hx Now Gestational Age (in weeks): EDC: Hx Hx Para Hx Section SAB Active Medications Active Medications: Current Medications Generic Name Dose Route Start Last Admin Trade Name Freq PRN Reason Stop Dose Admin Acetaminophen 650 mg 01/19/25 14:15 01/23/25 03:28 Acetaminophen 325 Mg Tablet PO 650 mg Q6H PRN PRN Administration Pain 1-10 Or Fever >100.7 Al Hydroxide/Mg Hydroxide 30 ml 01/23/25 16:12 01/25/25 08:34 Mag Hydrox/Al Hydrox/Simeth 30 Ml Udc PO 30 ml Q2H PRN Administration REFLUX Apixaban 5 mg 01/23/25 10:00 01/26/25 22:00 Apixaban 5 Mg Tablet PO 5 mg BID MICHAEL Administration Atorvastatin Calcium 80 mg 01/19/25 22:00 01/26/25 22:00 Atorvastatin Calcium 80 Mg Tablet PO 80 mg QHS MICHAEL Administration Clopidogrel Bisulfate 75 mg 01/20/25 10:00 01/26/25 10:08 Clopidogrel Bisulfate 75 Mg Tablet PO 75 mg DAILY MICHAEL Administration Furosemide 40 mg 01/27/25 12:00 Furosemide 40 Mg Tablet PO DAILY MICHAEL Protocol Haloperidol Lactate 4 mg 01/25/25 22:00 01/27/25 09:42 Haloperidol Lactate 5 Mg/Ml Vial IV Not Given Q4 MICHAEL Protocol Hydroxyzine Pamoate 50 mg 01/19/25 22:00 01/26/25 21:57 Hydroxyzine Jo 25 Mg Capsule PO 50 mg BID MICHAEL Administration Sodium Chloride 250 mls @ 15 mls/hr 01/20/25 13:40 IV .[id number] PRN Saline Flush Sodium Chloride 250 mls @ 15 mls/hr 01/20/25 13:40 IV .[id number] PRN Additional IVPB Infusion Pantoprazole Sodium 40 mg/ 100 mls @ 300 mls/hr 01/25/25 22:00 01/26/25 22:20 Sodium Chloride IV Infused Q12 MICHAEL Infusion Sodium Chloride 1,000 mls @ 15 mls/hr 01/27/25 11:30 01/27/25 11:28 IV 15 mls/hr .Q48H MICHAEL Administration Levothyroxine Sodium 88 mcg 01/20/25 06:00 01/27/25 05:53 Levothyroxine 88 Mcg Tablet PO 88 mcg DAILY@0600 MICHAEL Administration Lorazepam 1 mg 01/26/25 00:00 01/27/25 05:52 Lorazepam 2 Mg/Ml Syringe IV 1 mg Q6 MICHAEL Administration Losartan Potassium 100 mg 01/20/25 10:00 01/26/25 10:07 Losartan Potassium 100 Mg Tablet PO 100 mg DAILY MICHAEL Administration Protocol Meclizine HCl 50 mg 01/22/25 08:00 01/27/25 05:53 Meclizine Hcl 25 Mg Tablet PO 50 mg TID MICHAEL Administration Metoclopramide HCl 10 mg 01/20/25 00:00 01/27/25 05:52 Metoclopramide 10 Mg/2 Ml Vial IV 10 mg Q6 MICHAEL Administration Metoprolol Tartrate 50 mg 01/27/25 10:00 Metoprolol Tartrate 50 Mg Tablet PO BID MICHAEL Protocol Polyethylene Glycol 17 gm 01/20/25 15:00 01/26/25 10:09 Polyethylene Glycol 3350 17 Gm Packet PO Not Given DAILY MICHAEL Quetiapine Fumarate 50 mg 01/21/25 22:00 01/26/25 22:00 Quetiapine 25 Mg Tablet PO 50 mg QHS MICHAEL Administration Protocol Scopolamine HBr 1 patch 01/25/25 14:00 01/26/25 13:23 Scopolamine 1mg/72hr Patch TD 1 patch Q3D MICHAEL Administration Sodium Chloride 10 - 40 ml 01/20/25 13:40 01/26/25 05:01 0.9% Saline Lock 10 Ml Syringe IV 10 ml UD PRN Administration SALINE FLUSH Venlafaxine HCl 37.5 mg 01/20/25 10:00 01/26/25 11:20 Venlafaxine Xr 37.5 Mg Capsule PO 37.5 mg DAILY MICHAEL Administration [facility] Medical History (Updated 01/27/25 @ 11:[address] Cristiano Cartwright MD) Coronary atherosclerosis Right shoulder pain Home Medications ?Medication ?Instructions ?Recorded ?Last Taken ?Type levothyroxine 88 mcg capsule 88 mcg PO DAILY 10/07/23 Unknown History losartan 25 mg tablet 50 mg PO DAILY 10/07/23 Unkn own History alprazolam 0.25 mg tablet 0.25 mg PO DAILY PRN anxiety 01/19/25 Unknown History atorvastatin 80 mg tablet 80 mg PO QHS 01/19/25 Unknow n History clopidogrel 75 mg tablet 75 mg PO DAILY 01/19/25 Unkn own History desvenlafaxine succinate 50 mg 50 mg PO DAILY 01/19/25 Unknown History tablet,extended release 24 hr furosemide 20 mg tablet 20 mg PO DAILY 01/19/25 Unkn own History hydroxyzine HCl 25 mg tablet 50 mg PO BID 01/19/25 Unk nown History metoprolol tartrate 25 mg tablet 25 mg PO DAILY Hypert ension 01/19/25 01/27/25 History oxcarbazepine 150 mg tablet 150 mg PO BID 01/19/25 Unk nown History pantoprazole 40 mg tablet,delayed 40 mg PO DAILY 01/19 Unknown History release quetiapine 25 mg tablet 25 - 50 mg PO QHS PRN PRN in somnia 01/19/25 Unknown History Allergy/AdvReac Type Severity Reaction Status Date / Time clindamycin AdvReac Other Verified 01/19/25 08:21 Penicillins AdvReac Other Verified 01/19/25 08:21 Sulfa (Sulfonamide AdvReac Other Verified 01/19/25 08:21 Antibiotics) Family History Father Hypertension CVA (cerebral vascular accident) Myocardial infarction Arthritis Mother Arthritis Cancer Sister Hypertension Arthritis Cancer Surgical History Hx of CABG H/O thumb surgery H/O wrist surgery Social History household members: significant other Smoking Status: Former smoker alcohol intake: never what type of physical activity do you participate in: walking Review of Systems (Anesthesia) ROS Narrative System reviewed and no additional complaints, except as documented. 01/27/25 1149 rolf HICKMAN> Date _ Cristiano Cartwright MD Cosigner Signature: Date CC: ~ Signed [facility]08-28-2025 Progress note [facility] Medical Records Department [address] [place] [address] Progress Note - Hospitalist 01/27/2530 MR#: [id number] Acct: [id number] Name: ARIEL NGUYEN Rep #:[id number] : 1960 65 From: Cathie Aldana DO PCP: Sabine Power PA-C Status:ADM I N Location: [place] [address] Reason for Visit Chief Complaint: Persistent nausea and vomiting Subjective Subjective Patient looks good and states she feels well today. No nausea or vomiting currently. Has not had any through the night. Plan is for EGD later today. I discussed with her that if she does well with the EGD and no significant findings are present we will progress her diet and see how she does throughout the day today with possible discharge tomorrow as long as she was tolerating p.o. without difficulty. Objective Data Objective Data Vital Signs: Vital Signs Temp Pulse Resp BP Pulse Ox O2 Del Method O2 Flow Rate 98.0 F 58 L 16 89/51 L 98 Room Air 2 08/28/25 06:01 01/27/25 06:01 01/27/25 06:01 01/27/25 06:01 01/27/25 06:01 01/27/25 06:01 01/25/25 14:00 Oxygen Flow Rate (L/min) 2 Oxygen Delivery Method Room Air Weight: 81.2 kg Body Mass Index (BMI) 28.8 Intake & Output: Intake and Output for Last 24 Hours 01/25/25 01/26/25 01/27/25 23:59 23:59 23:59 Intake Total 100 / 100 200 / 200 Output Total 700 / 700 Balance -600 / -600 200 / 200 Lab / Micro Data 01/27/25 04:20 01/27/25 04:20 Labs: Laboratory Results - last 24 hr 01/27/25 04:20: WBC 6.3, RBC 3.82 L, Hgb 11.4 L, Hct 31.8 L, MCV 83.2, MCH 29.8,MCHC 35.8, RDW Std Deviation 39.8, RDW Coeff of Jaimie 13.4, Plt Count 176, MPV 10.1, Immature Gran % (Auto) 0.300, Neut %(Auto) 53.4, Lymph % (Auto) 33.0, Assumption % (Auto) 9.2, Eos % (Auto) 3.5, Baso % (Auto) 0.6, Absolute Neuts (auto) 3.4, Absolute Lymphs (auto) 2.08, Nucleated RBC % 0, Sodium 138, Potassium 3.1 L, Chloride 96 L, Carbon Dioxide 30.7, Anion Gap 12, BUN 13, Creatinine 0.96, Estim Creat Clear Calc 62.77, Est GFR (MDRD) Non-Af 66, BUN/Creatinine Ratio 13.3, Glucose 109 H, Calcium 8.9, Total Bilirubin 0.89, AST 32, ALT 84 H, Alkaline Phosphatase 127 H, Total Protein 6.0, Albumin 3.6, Globulin 2.4, Albumi n/Globulin Ratio 1.5 Micro: Microbiology 01/19/25 20:30 Urine, Clean Catch Urine Culture - Final Mixed Gram Pos & Gram Neg Org Streptococcus group B Radiography Diagnostic Testing: Radiology Impression MRCP 01/26/25 09:15 IMPRESSION: There is a 1 cm pleural effusion on the right and left. Negative MRCP. Reading Location: [facility] Physical Exam Const alert, oriented x3, no apparent distress, average body habitus and healthy appearing Constitutional Narrative: Upper middle-aged, white female, standing up walking around the room, appears that she is feeling much better, very pleasant, much more talkative HEENT normocephalic, head/scalp atraumatic, hearing grossly normal bilaterally and moist oral mucous membranes HEENT Narrative: Mallampati 3, no thrush Resp normal respiratory effort, no retractions, no use of accessory muscles and clearto auscultation bilaterally Auscultation: Negative for crackles, rhonchi or wheezes Cardio regular rate, regular rhythm, S1 normal heart sound, no rub, no gallops and no clicks; Negative forS2 normal heart sound or no murmurs Cardio Narrative: 3 out of 6 systolic murmur loudest at left lower sternal border but also presentat right upper sternal border with fairly significant prominence GI normal to inspection, nondistended, normoactive bowel sounds, soft to palpation and non-tender Extremity no clubbing, cyanosis or edema Extremity Narrative: Pedal pulses are 2+, radial pulses are 2+ Neuro moves all extremities and no focal motor deficits Speech: speech normal Psych affect normal Psych Narrative: Very pleasant, feels if she is feeling much better, very interactive and talkative today Assessment & Plan Assessment/Plan (1) Nausea and vomiting: (2) Transaminitis: (3) Right shoulder pain: (4) Acute hypoxemic respiratory failure: (5) Aortic valve stenosis, acquired: (6) Mitral valve insufficiency: (7) Acute heart failure with preserved ejection fraction (HFpEF): PLAN: Plan Acute hypoxic respiratory failure secondary to acute decompensated HFpEF - Resolved--> patient remains on room air through the night - Echocardiogram performed and shows an EF of 60 to 65% with aortic valve squarearea of 0.98 cm? and a peak aortic valve gradient of 50.9 mmHg and a mean aorticvalve gradient of 32.3 mmHg, mild pulmonary regurgitation, mitral valve has severe calcification and 3+ insufficiency -Patient has upcoming appointment in mid January with [facility] for ALEXIS and further workupfor valvular disorders. Per discussion with her she was not aware her aortic valve was problematic.She states that her CABG was done in July in [place] -Continue p.o. Lasix transition to 40 daily--> was on 20 daily at home - Will check ambulatory pulse ox prior to discharge - Monitor weight Intractable nausea and vomiting/Gastroparesis - Has been ongoing and highly suspect cannabis induced hyperemesis however patient is not improvingdespite multiple medical therapies - Much better today - MRCP was done was unremarkable. - Plans for EGD today - GI is following and ordered significant workup--> all lab is still pending - If no significant findings on EGD will transition to regular diet and see how she tolerates if she does well should be able to discharge home tomorrow - We discussed again the importance of cannabis cessation Transaminitis -AST is normalized and ALT is down significantly - repeat in am PAF with RVR - Patient had new onset A-fib with RVR but has self converted into normal sinus rhythm -Remains in sinus rhythm - Continue Eliquis - Continue metoprolol but decrease to 50 twice daily - Patient follows up at [facility] - Echocardiogram as noted above suspect this is valvular in nature History of mitral valve regurgitation - Patient with recent CABG and mitral valve regurgitation was being followed by cardiology at [facility] - Patient has upcoming appointment on March 01 and possible ALEXIS Aortic valve stenosis - Severe on echo - Needs ALEXIS and has upcoming appointment with [facility] CAD/essential hypertension/hyperlipidemia - Continue atorvastatin - Continue clopidogrel - Continue Lasix but decrease to 40 daily - continue losartan but decrease to 50 mg - Continue metoprolol but decrease to 50 mg twice daily GERD -Continue IV PPI twice daily Depression/anxiety/insomnia - Continue home medication regimen Hypothyroidism - Continue home levothyroxine DVT prophylaxis - Patient is on Eliquis for A-fib CODE STATUS - Full code Charges/Coding Visit Charges Inpatient E&M: 72575 Subs Hosp L2 01/27/25 1138 Cosigner Signature (if applicable): CC: ~ Signed [facility]08-27-2025 Progress note Author Cathie Aldana [facility] Note Date/Time January 26, 2025 1: 53pm [facility] Medical Records Department [address] [place] [address] Progress Note - Hospitalist 01/26/25 1327 MR#: [id number] Acct: [id number] Name: ARIEL NGUYEN Rep #:[id number] : 1960 65 From: Catihe Aldana DO PCP: Sabine Power PA-C Status:ADM I N Location: [place] [address] Reason for Visit Chief Complaint: Persistent nausea and vomiting Subjective Subjective Patient states she still having considerable nausea with intermittent vomiting. States that the hot shower last evening did feel some better but only temporarily. Overall no real improvement. States her breathing is much improved. We discussed the echocardiogram and the findings that her aortic valve is bad as well as her mitral valve. Objective Data Objective Data Vital Signs: Vital Signs Temp Pulse Resp BP Pulse Ox O2 Del Method O2 Flow Rate 97.7 F L 61 16 141/57 H 92 Room Air 2 01/26/25 10:03 01/26/25 10:08 01/26/25 10:03 01/26/25 10:08 01/26/25 10:03 01/26/25 10:03 01/25/25 14:00 Oxygen Flow Rate (L/min) 2 Oxygen Delivery Method Room Air Weight: 83.3 kg Body Mass Index (BMI) 29.6 Intake & Output: Intake and Output for Last 24 Hours 01/24/25 01/25/25 01/26/25 23:59 23:59 23:59 Intake Total 702.5 / 702.5 100 / 100 100 / 100 Output Total 5 / 5 700 / 700 Balance 697.5 / 697.5 -600 / -600 100 / 100 Lab / Micro Data 01/26/25 04:43 01/26/25 04:43 Labs: Laboratory Results - last 24 hr 01/25/25 19:30: ESR 13, Ferritin 262, C-React Prot Ext Range 28.20 H, TSH 1.780 01/26/25 04:43: WBC 7.5, RBC 3.99 L, Hgb 11.9 L, Hct 33.9 L, MCV 85.0, MCH 29.8,MCHC 35.1, RDW Std Deviation 41.0, RDW Coeff of Jaimie 13.4, Plt Count 175, MPV 9.9, Immature Gran % (Auto) 0.400, Neut % (Auto) 54.3, Lymph % (Auto) 31.7, Assumption% (Auto) 9.0, Eos % (Auto) 3.7, Baso % (Auto) 0.9, Absolute Neuts (auto) 4.1, Absolute Lymphs (auto) 2.37, Nucleated RBC % 0, Sodium 142, Potassium 3.6, Chloride 100, Carbon Dioxide 31.6, Anion Gap 11, BUN 8, Creatinine 1.06, Estim Creat Clear Calc 57.55, Est GFR (MDRD) Non-Af 58 L, BUN/Creatinine Ratio 7.9 L, Glucose 110 H, Calcium 9.2, Phosphorus 3.9, Magnesium 2.4 H, Total Bilirubin 0.84, AST 47 H, ALT 118 H, Alkaline Phosphatase 133 H, Total Protein 5.9, Albumin 3.5, Globulin 2.4, Albumin/Globulin Ratio 1.5 Micro: Microbiology 01/19/25 20:30 Urine, Clean Catch Urine Culture - Final Mixed Gram Pos & Gram Neg Org Streptococcus group B Radiography Diagnostic Testing: Radiology Impression Echocardiogram 01/25/25 09:43 Interpretation Summary The estimated ejection fraction is 60???65 %. Normal LV systolic function Heavily calcified posterior mitral annulus Aortic valve area 0.98 cm squire . Peak aortic valve gradient 50.9 mmHg. Mean aortic valve gradient 32.3 mmHg. Mild pulmonary regurgitation No previous echo to compare Ordering Physician: Cathie Aldana Referring Physician: Sabine Power Performed By: Aicha García, RDCS, RVT 01/26/25 09:15 IMPRESSION: There is a 1 cm pleural effusion on the right and left. Negative MRCP. [facility] Physical Exam Const alert, oriented x3, average body habitus and healthy appearing Constitutional Narrative: Upper middle-aged, white female, lying in right side-lying, room is dark, appears ill but no acute distress, very pleasant HEENT normocephalic, head/scalp atraumatic and moist oral mucous membranes Neck Neck Narrative: Trachea midline Resp normal respiratory effort, no retractions, no use of accessory muscles and No clear to auscultation bilaterally Resp Narrative: Crackles have resolved, back to room air, no signs of respiratory distress Auscultation: Negative for crackles, rhonchi or wheezes Cardio regular rate, regular rhythm, S1 normal heart sound, no rub, no gallops and no clicks; Negative for S2 normal heart sound or no murmurs Cardio Narrative: 3 out of 6 systolic murmur loudest at left lower sternal border but also presentat right upper sternal border with fairly significant prominence GI normal to inspection, nondistended, normoactive bowel sounds, soft to palpation and non-tender Extremity no clubbing, cyanosis or edema Extremity Narrative: Pedal pulses are 2+, radial pulses are 2+ Skin General Skin Exam: no breakdown Neuro moves all extremities Speech: speech normal Psych affect normal Psych Narrative: Affect is slightly flat today but appropriate for current situation, patient is pleasant and interacts appropriately Assessment & Plan Assessment/Plan (1) Nausea and vomiting: (2) Transaminitis: (3) Right shoulder pain: (4) Acute hypoxemic respiratory failure: (5) Aortic valve stenosis, acquired: (6) Mitral valve insufficiency: (7) Acute heart failure with preserved ejection fraction (HFpEF): PLAN: Plan Acute hypoxic respiratory failure secondary to acute decompensated HFpEF - Resolved--> patient now on room air - Echocardiogram performed and shows an EF of 60 to 65% with aortic valve squarearea of 0.98 cm? and a peak aortic valve gradient of 50.9 mmHg and a mean aorticvalve gradient of 32.3 mmHg, mild pulmonary regurgitation, mitral valve has severe calcification and 3+ insufficiency -Patient has upcoming appointment in mid January with [facility] for ALEXIS and further workup for valvular disorders. Per discussion with her she was not aware her aortic valve was problematic. She states that her CABG was done in July in [place] - Discontinue IV Lasix and start Lasix 40 mg p.o. twice daily - Will check ambulatory pulse ox prior to discharge - Monitor weight Intractable nausea and vomiting/Gastroparesis - Has been ongoing and highly suspect cannabis induced hyperemesis however patient is not improving despite multiple medical therapies - MRCP was done was unremarkable. - GI is following and ordered significant workup - With negative MRCP I have asked for an EGD given her ongoing symptoms without any resolution Transaminitis - Resolving with improved volume status - repeat in am PAF with RVR - Patient had new onset A-fib with RVR but has self converted into normal sinus rhythm -Remains in sinus rhythm - Continue Eliquis - Continue metoprolol 150 mg p.o. twice daily - Patient follows up at [facility] - Echocardiogram as noted above suspect this is valvular in nature History of mitral valve regurgitation - Patient with recent CABG and mitral valve regurgitation was being followed by cardiology at [facility] - Patient has upcoming appointment on March 01 and possible ALEXIS Aortic valve stenosis - Severe on echo - Needs ALEXIS and has upcoming appointment with [facility] CAD/essential hypertension/hyperlipidemia - Continue atorvastatin - Continue clopidogrel -Restart oral Lasix 40 mg p.o. twice daily - continue losartan - Continue metoprolol GERD -Continue IV PPI twice daily Depression/anxiety/insomnia - Continue home medication regimen Hypothyroidism - Continue home levothyroxine DVT prophylaxis - Patient is on Eliquis for A-fib CODE STATUS - Full code Charges/Coding Visit Charges Inpatient E&M: 92031 Subs Hosp L2 01/26/25 1355 <Electronically signed by Cathie Aldana DO> Cosigner Signature (if applicable): CC: ~ Signed [facility] Work Phone: [phone]) 870-172708-27-2025 Progress note [facility] Medical Records Department [address] [place] [address] Progress Note - Hospitalist 01/26/25 1327 MR#: [id number] Acct: [id number] Name: ARIEL NGUYEN Rep #:[id number] 2 : 1960 65 From: Cathie Aldana DO PCP: Sabine Power PA-C Status:ADM I N Location: [place] [address] Reason for Visit Chief Complaint: Persistent nausea and vomiting Subjective Subjective Patient states she still having considerable nausea with intermittent vomiting. States that the hotshower last evening did feel some better but only temporarily. Overall no real improvement. States her breathing is much improved. We discussed the echocardiogram and the findings that her aortic valve is bad as well as her mitral valve. Objective Data Objective Data Vital Signs: Vital Signs Temp Pulse Resp BP Pulse Ox O2 Del Method O2 Flow Rate 97.7 F L 61 16 141/57 H 92 Room Air 2 01/26/25 10:03 01/26/25 10:08 01/26/25 10:03 01/26/25 10:08 01/26/25 10:03 01/26/25 10:03 01/25/25 14:00 Oxygen Flow Rate (L/min) 2 Oxygen Delivery Method Room Air Weight: 83.3 kg Body Mass Index (BMI) 29.6 Intake & Output: Intake and Output for Last 24 Hours 01/24/25 01/25/25 01/26/25 23:59 23:59 23:59 Intake Total 702.5 / 702.5 100 / 100 100 / 100 Output Total 5 / 5 700 / 700 Balance 697.5 / 697.5 -600 / -600 100 / 100 Lab / Micro Data 01/26/25 04:43 01/26/25 04:43 Labs: Laboratory Results - last 24 hr 01/25/25 19:30: ESR 13, Ferritin 262, C-React Prot Ext Range 28.20 H, TSH 1.780 01/26/25 04:43: WBC 7.5, RBC 3.99 L, Hgb 11.9 L, Hct 33.9 L, MCV 85.0, MCH 29.8,MCHC 35.1, RDW Std Deviation 41.0, RDW Coeff of Jaimie 13.4, Plt Count 175, MPV 9.9, Immature Gran % (Auto) 0.400, Neut % (Auto) 54.3, Lymph % (Auto) 31.7, Assumption% (Auto) 9.0, Eos % (Auto) 3.7, Baso % (Auto) 0.9, Absolute Neuts (auto) 4.1, Absolute Lymphs (auto) 2.37, Nucleated RBC % 0, Sodium 142, Potassium 3.6, Chloride 100, Carbon Dioxide 31.6, Anion Gap 11, BUN 8, Creatinine 1.06, Estim Creat Clear Calc 57.55, Est GFR (MDRD) Non-Af 58 L, BUN/Creatinine Ratio 7.9 L, Glucose 110 H, Calcium 9.2, Phosphorus 3.9, Magnesium 2.4 H, Total Bilirubin 0.84, AST 47 H, ALT 118 H, Alkaline Phosphatase 133 H, Total Protein 5.9,Albumin 3.5, Globulin 2.4, Albumin/Globulin Ratio 1.5 Micro: Microbiology 01/19/25 20:30 Urine, Clean Catch Urine Culture - Final Mixed Gram Pos & Gram Neg Org Streptococcus group B Radiography Diagnostic Testing: Radiology Impression Echocardiogram 01/25/25 09:43 Interpretation Summary The estimated ejection fraction is 60???65 %. Normal LV systolic function Heavily calcified posterior mitral annulus Aortic valve area 0.98 cm squire . Peak aortic valve gradient 50.9 mmHg. Mean aortic valve gradient 32.3 mmHg. Mild pulmonary regurgitation No previous echo to compare Ordering Physician: Cathie Aldana Referring Physician: Sabine Power Performed By: Aicha García, AARTICS, RVT 01/26/25 09:15 IMPRESSION: There is a 1 cm pleural effusion on the right and left. Negative MRCP. Reading Location: [facility] Physical Exam Const alert, oriented x3, average body habitus and healthy appearing Constitutional Narrative: Upper middle-aged, white female, lying in right side-lying, room is dark, appears ill but no acute distress, very pleasant HEENT normocephalic, head/scalp atraumatic and moist oral mucous membranes Neck Neck Narrative: Trachea midline Resp normal respiratory effort, no retractions, no use of accessory muscles and No clear to auscultationbilaterally Resp Narrative: Crackles have resolved, back to room air, no signs of respiratory distress Auscultation: Negative for crackles, rhonchi or wheezes Cardio regular rate, regular rhythm, S1 normal heart sound, no rub, no gallops and no clicks; Negative forS2 normal heart sound or no murmurs Cardio Narrative: 3 out of 6 systolic murmur loudest at left lower sternal border but also presentat right upper sternal border with fairly significant prominence GI normal to inspection, nondistended, normoactive bowel sounds, soft to palpation and non-tender Extremity no clubbing, cyanosis or edema Extremity Narrative: Pedal pulses are 2+, radial pulses are 2+ Skin General Skin Exam: no breakdown Neuro moves all extremities Speech: speech normal Psych affect normal Psych Narrative: Affect is slightly flat today but appropriate for current situation, patient is pleasant and interacts appropriately Assessment & Plan Assessment/Plan (1) Nausea and vomiting: (2) Transaminitis: (3) Right shoulder pain: (4) Acute hypoxemic respiratory failure: (5) Aortic valve stenosis, acquired: (6) Mitral valve insufficiency: (7) Acute heart failure with preserved ejection fraction (HFpEF): PLAN: Plan Acute hypoxic respiratory failure secondary to acute decompensated HFpEF - Resolved--> patient now on room air - Echocardiogram performed and shows an EF of 60 to 65% with aortic valve squarearea of 0.98 cm? and a peak aortic valve gradient of 50.9 mmHg and a mean aorticvalve gradient of 32.3 mmHg, mild pulmonary regurgitation, mitral valve has severe calcification and 3+ insufficiency -Patient has upcoming appointment in mid January with [facility] for ALEXIS and further workupfor valvular disorders. Per discussion with her she was not aware her aortic valve was problematic.She states that her CABG was done in July in [place] - Discontinue IV Lasix and start Lasix 40 mg p.o. twice daily - Will check ambulatory pulse ox prior to discharge - Monitor weight Intractable nausea and vomiting/Gastroparesis - Has been ongoing and highly suspect cannabis induced hyperemesis however patient is not improvingdespite multiple medical therapies - MRCP was done was unremarkable. - GI is following and ordered significant workup - With negative MRCP I have asked for an EGD given her ongoing symptoms without any resolution Transaminitis - Resolving with improved volume status - repeat in am PAF with RVR - Patient had new onset A-fib with RVR but has self converted into normal sinus rhythm -Remains in sinus rhythm - Continue Eliquis - Continue metoprolol 150 mg p.o. twice daily - Patient follows up at [facility] - Echocardiogram as noted above suspect this is valvular in nature History of mitral valve regurgitation - Patient with recent CABG and mitral valve regurgitation was being followed by cardiology at [facility] - Patient has upcoming appointment on March 01 and possible ALEXIS Aortic valve stenosis - Severe on echo - Needs ALEXIS and has upcoming appointment with [facility] CAD/essential hypertension/hyperlipidemia - Continue atorvastatin - Continue clopidogrel -Restart oral Lasix 40 mg p.o. twice daily - continue losartan - Continue metoprolol GERD -Continue IV PPI twice daily Depression/anxiety/insomnia - Continue home medication regimen Hypothyroidism - Continue home levothyroxine DVT prophylaxis - Patient is on Eliquis for A-fib CODE STATUS - Full code Charges/Coding Visit Charges Inpatient E&M: 04005 Subs Hosp L2 01/26/25 1353 Cosigner Signature (if applicable): CC: ~ Signed [facility]08-26-2025 Progress note Author Cathie Aldana [facility] Note Date/Time January 25, 2025 7: 21pm [facility] Medical Records Department [address] [place] [address] Progress Note - Hospitalist 01/25/25 1851 MR#: [id number] Acct: [id number] Name: ARIEL NGUYEN Rep #:[id number] : 1960 65 From: Cathie Aldana DO PCP: Sabine Power PA-C Status:ADM I N Location: [place] [address] Reason for Visit Chief Complaint: Persistent nausea and vomiting Subjective Subjective I was called by nursing as the patient developed worsening shortness of breath that is seem to be acute in nature. She has known mitral valve disease and acute heart failure with suspected that she has been getting IV fluids. IV fluids had been discontinued. Patient reports ongoing intermittent bouts of nausea that have not subsided since admission. Objective Data Objective Data Vital Signs: Vital Signs Temp Pulse Resp BP Pulse Ox O2 Del Method O2 Flow Rate 97.9 F 56 L 16 117/73 98 Room Air 2 01/25/25 14:00 01/25/25 17:58 01/25/25 14:00 01/25/25 17:58 01/25/25 17:58 01/25/25 17:58 01/25/25 14:00 Oxygen Flow Rate (L/min) 2 Oxygen Delivery Method Room Air Weight: 83.3 kg Body Mass Index (BMI) 29.6 Intake & Output: Intake and Output for Last 24 Hours 01/23/25 01/24/25 01/25/25 23:59 23:59 23:59 Intake Total 5281.68 / 5281.68 702.5 / 702.5 Output Total 700 / 700 Balance 5281.68 / 5281.68 697.5 / 697.5 -700 / -700 Lab / Micro Data 01/25/25 08:16 01/25/25 08:16 Labs: Laboratory Results - last 24 hr 01/25/25 08:16: WBC 7.6, RBC 4.02 L, Hgb 12.0, Hct 33.5 L, MCV 83.3, MCH 29.9, MCHC 35.8, RDW Std Deviation 40.0, RDW Coeff of Jaimie 13.2, Plt Count 182, MPV 9.8, Immature Gran % (Auto) 0.400, Neut % (Auto) 61.9, Lymph % (Auto) 24.0, Assumption% (Auto) 9.5, Eos % (Auto) 3.3, Baso % (Auto) 0.9, Absolute Neuts (auto) 4.7, Absolute Lymphs (auto) 1.82, Nucleated RBC % 0, Sodium 142, Potassium 3.8, Chloride 107, Carbon Dioxide 25.5, Anion Gap 9, BUN 5, Creatinine 0.83, Estim Creat Clear Calc 73.50, Est GFR (MDRD) Non-Af 78, BUN/Creatinine Ratio 5.5 L, Glucose 132 H, Calcium 9.0, Phosphorus 2.9, Magnesium 2.2, Total Bilirubin 0.71, AST 138 H, ALT 189 H, Alkaline Phosphatase 150 H, NT pro BNP II 4115 H, Total Protein 6.0, Albumin 3.8, Globulin 2.2, Albumin/Globulin Ratio 1.8 Micro: Microbiology 01/19/25 20:30 Urine, Clean Catch Urine Culture - Final Mixed Gram Pos & Gram Neg Org Streptococcus group B Radiography Diagnostic Testing: Radiology Impression Echocardiogram 01/25/25 09:43 Interpretation Summary The estimated ejection fraction is 60???65 %. Normal LV systolic function Heavily calcified posterior mitral annulus Aortic valve area 0.98 cm squire . Peak aortic valve gradient 50.9 mmHg. Mean aortic valve gradient 32.3 mmHg. Mild pulmonary regurgitation No previous echo to compare Ordering Physician: Cathie Aldana Referring Physician: Sabine Power Performed By: Aicha García, RDCS, RVT Chest CTA 01/25/25 10:10 IMPRESSION: There is AP window adenopathy with the largest node measuring 2.3 x 1.7 cm, image 175/250. There is an enlarged precarinal lymph node measuring 1.6 X 1.3 cm, image 166/250. There is heterogeneous increased density in the anterior mediastinum, which may be postsurgical. There is a 1.8 cm pleural effusion on the right and left. There is patchy infiltrate in the right upper lung and left upper lung, with atelectasis or scar in the left lingular segment and right middle lobe. There is no visible pulmonary embolus. Reading Location: [facility] Physical Exam Const alert and oriented x3 Constitutional Narrative: Upper middle-aged, white female, lying in right side-lying, appears uncomfortable but no acute distress, very pleasant HEENT head/scalp atraumatic and moist oral mucous membranes Head and Scalp: normocephalic Eyes Eyes Narrative: No scleral icterus Neck supple Neck Narrative: Trachea midline Resp No normal respiratory effort, no retractions, no use of accessory muscles and Noclear to auscultation bilaterally Resp Narrative: Crackles right base greater than left base however patient is right side-lying, mild tachypnea Auscultation: crackles; Negative for rhonchi or wheezes Cardio regular rate, regular rhythm, S1 normal heart sound, S2 normal heart sound, no gallops and no clicks; Negative for no murmurs Cardio Narrative: 3 out of 6 systolic murmur loudest at left lower sternal border GI soft to palpation and non-distended; Negative for non-tender GI Narrative: Mild tenderness in the epigastrium, bowel sounds are hyperactive Auscultation: hyperactive bowel sounds Extremity no clubbing, cyanosis or edema Extremity Narrative: Pedal pulses are 2+, radial pulses are 2+ Neuro oriented x3, moves all extremities and no focal motor deficits Speech: speech normal Psych Psych Narrative: Affect is slightly flat today but appropriate for current situation, patient is pleasant and interacts appropriately Assessment & Plan Assessment/Plan (1) Nausea and vomiting: (2) Transaminitis: (3) Right shoulder pain: (4) Acute hypoxemic respiratory failure: (5) Aortic valve stenosis, acquired: (6) Mitral valve insufficiency: (7) Acute heart failure with preserved ejection fraction (HFpEF): PLAN: Plan Acute hypoxic respiratory failure secondary to acute decompensated HFpEF - Patient has been on IV fluids and has known mitral valve insufficiency - BNP was found to be markedly elevated - CTA negative for PE but does show multifocal ground glass changes - Patient has been on room air now requiring 5 L nasal cannula - Wean as able - May need to assess ambulatory pulse ox prior to discharge depending on oxygen status at baseline - Start Lasix IV twice daily - Check echocardiogram Intractable nausea and vomiting/Gastroparesis - Has been ongoing and highly suspect cannabis induced hyperemesis however patient is not improving despite multiple medical therapies - Consult to GI for assistance with management Transaminitis - suspect related to passive congestion vs medication but r/o other etiologies - MRCP per GI - repeat in am PAF with RVR - Patient had new onset A-fib with RVR but has self converted into normal sinus rhythm - Continue Eliquis - Continue metoprolol 150 mg p.o. twice daily - Patient follows up at [facility] - Echocardiogram pursued today due to respiratory failure History of mitral valve regurgitation - Patient with recent CABG and mitral valve regurgitation was being followed by cardiology at [facility] - Patient has upcoming appointment on March 01 and possible ALEXIS CAD/essential hypertension/hyperlipidemia - Continue atorvastatin - Continue clopidogrel - Hold p.o. Lasix and continue IV Lasix - continue losartan - Continue metoprolol GERD - Continue PPI but transition from p.o. daily to IV twice daily Depression/anxiety/insomnia - Continue home medication regimen Hypothyroidism - Continue home levothyroxine DVT prophylaxis - Patient is on Eliquis for A-fib CODE STATUS - Full code Charges/Coding Visit Charges Inpatient E&M: 54755 [facility] Hosp L3 01/25/251920 <Electronically signed by Cathie Aldana DO> Cosigner Signature (if applicable): CC: ~ Signed [facility] Work Phone: 1([phone] 556-311208-26-2025 Consult note Author Tomas Friend [facility] Note Date/Time January 25, 2025 6: 45pm [facility] Medical Records Department [address] [place] [address] Consultation - GI 01/25/25 1803 MR#: [id number] Acct: [id number] Name: ARIEL NGUYEN Rep #:[id number] : 1960 65 From: Tomas Marroquin DO PCP: Sabine Power PA-C Status:ADM I N Location: [place] [address] HPI Consult Data Date of Consult: 01/25/25 HPI Narrative Reason for Consultation: Intractable nausea and vomiting HPI Narrative: ARIEL NGUYEN, is a 65-year-old female patient with a history of chronic cannabis use, previously diagnosed with cannabinoid hyperemesis syndrome (CHS) and cannabis- induced gastroparesis, presents to the emergency department with a 2-day history of intractable nausea and vomiting. The vomiting is cyclic, occurring multiple times per hour, and contains bilious material after initial emptying of stomach contents. The patient reports associated epigastric and diffuse abdominal pain. Nausea and vomiting symptoms were transiently relieved by taking long, hot showers, but returned shortly after. The patient reports poor oral intake and significant weight loss over the last several weeks due to fear of vomiting. She admits to daily cannabis use (frequency and amount specified if known, e.g., smoking x amount daily for several years). The patient denies fever, chills, diarrhea, or hematemesis. Standard antiemetics tried at home (e.g., ondansetron) were ineffective, consistent with prior episodes. The patient has been unable to quit cannabis despite prior counseling. She has a past Medical History: Significant cardiovascular disease including recent non-ST segment elevation OK status post three-vessel CABG on Plavix. Ana has a history of a murmur secondary to a calcified mitral valve. She was previously diagnosed with gastroparesis from unknown cause. 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 She has been getting metoclopramide,Phenergan suppositories, Compazine, Zofran and she has a scopolamine patch alongwith oral Valium. She gets better with hot showers. Yesterday she was able to eat. However today she has not been able to tolerate liquids or solids. Imaging:? * CT/Abdomen/Pelvis without Cont IMPRESSION: Sludge or tiny gallstones within the gallbladder lumen. Correlation with ultrasound recommended. Punctate calcifications in the body of the pancreas. Status post hysterectomy. Sigmoid diverticulosis. * Ultrasound of the right upper quadrant FINDINGS: Liver: Grossly normal size and echotexture. Gallbladder: Sludge is seen within the gallbladder lumen. The gallbladder wall is not thickened. Common bile duct: Normal measuring 6.1 mm . Pancreas: Normal Echocardiogram 01/25/25 09:43 Interpretation Summary The estimated ejection fraction is 60???65 %. Normal LV systolic function Heavily calcified posterior mitral annulus Aortic valve area 0.98 cm squire . Peak aortic valve gradient 50.9 mmHg. Mean aortic valve gradient 32.3 mmHg. Mild pulmonary regurgitation No previous echo to compare Labs 01/25/25 08:16: Total Bilirubin 0.71, AST 138 H, ALT 189 H, Alkaline Phosphatase 150 H, NT pro BNP II 4115 H, Total Protein 6.0, Albumin 3.8, Globulin 2.2, PFSH Medical History Right shoulder pain Home Medications ?Medication ?Instructions ?Recorded ?Last Taken ?Type levothyroxine 88 mcg capsule 88 mcg PO DAILY 10/07/23 Unknown History losartan 25 mg tablet 50 mg PO DAILY 10/07/23 Unkn own History alprazolam 0.25 mg tablet 0.25 mg PO DAILY PRN anxiety 01/19/25 Unknown History atorvastatin 80 mg tablet 80 mg PO QHS 01/19/25 Unknow n History clopidogrel 75 mg tablet 75 mg PO DAILY 01/19/25 Unkn own History desvenlafaxine succinate 50 mg 50 mg PO DAILY 01/19/25 Unknown History tablet,extended release 24 hr furosemide 20 mg tablet 20 mg PO DAILY 01/19/25 Unkn own History hydroxyzine HCl 25 mg tablet 50 mg PO BID 01/19/25 Unk nown History metoprolol tartrate 25 mg tablet 25 mg PO DAILY Unknown History oxcarbazepine 150 mg tablet 150 mg PO BID 08/20/25 Unk nown History pantoprazole 40 mg tablet,delayed 40 mg PO DAILY 01/19 Unknown History release quetiapine 25 mg tablet 25 - 50 mg PO QHS PRN PRN in somnia 01/19/25 Unknown History Allergy/AdvReac Type Severity Reaction Status Date / Time clindamycin AdvReac Other Verified 01/19/25 08:21 Penicillins AdvReac Other Verified 01/19/25 08:21 Sulfa (Sulfonamide AdvReac Other Verified 01/19/25 08:21 Antibiotics) Family History Father Hypertension CVA (cerebral vascular accident) Myocardial infarction Arthritis Mother Arthritis Cancer Sister Hypertension Arthritis Cancer Surgical History H/O thumb surgery H/O wrist surgery Social History household members: significant other Smoking Status: Former smoker alcohol intake: never what type of physical activity do you participate in: walking ROS Constitutional Constitutional: Reports weakness; Denies fever(s) or night sweats Eyes Eyes: Denies blurry vision, change in vision, discharge from eye(s) or eye pain Cardiovascular Cardiovascular: Denies chest pain, claudication, edema or palpitations Respiratory/Chest Respiratory/Chest: Denies cough, hemoptysis, shortness of breath at rest or shortness of breath with exertion Gastrointestinal Gastrointestinal: Reports abdominal pain, nausea and vomiting; Denies constipation, diarrhea, hematemesis, hematochezia or melena Genitourinary Genitourinary: Denies dysuria, hematuria, urinary frequency, urinary hesitancy, urinary incontinence or urinary urgency Musculoskeletal Musculoskeletal: Denies back pain, joint pain, joint stiffness, joint swelling, myalgias or neck pain Neurologic Neurologic: Denies abnormal gait, abnormal speech, dizziness, focal weakness, headache(s), loss of vision, numbness, other visual disturbances, paresthesias, syncope or tingling Psychiatric Psychiatric: Denies anxiety, cognitive impairment, depression, irritability, mood swings or suicidal ideation Endocrine Endocrinology: Denies change in body appearance, cold intolerance, excessive sweating, heat intolerance, polydipsia or polyuria Hematologic/Lymphatic Hematologic/Lymphatic: Denies none, anemia, easy bleeding, easy bruising or lymphadenopathy Allergic/Immunologic Allergic/Immunologic: Denies rhinitis, urticaria, eczemia or asthma Physical Exam Const alert, oriented x3, no apparent distress and healthy appearing General Appearance: cooperative GI normal to inspection, nondistended, normoactive bowel sounds, soft to palpation,non-tender and non-distended Percussion: normal to percussion Rectal Exam: deferred Lab / Micro Data 01/25/25 08:16 01/25/25 08:16 Labs: Laboratory Results - last 24 hr 01/25/25 08:16: WBC 7.6, RBC 4.02 L, Hgb 12.0, Hct 33.5 L, MCV 83.3, MCH 29.9, MCHC 35.8, RDW Std Deviation 40.0, RDW Coeff of Jaimie 13.2, Plt Count 182, MPV 9.8, Immature Gran % (Auto) 0.400, Neut % (Auto) 61.9, Lymph % (Auto) 24.0, Assumption% (Auto) 9.5, Eos % (Auto) 3.3, Baso % (Auto) 0.9, Absolute Neuts (auto) 4.7, Absolute Lymphs (auto) 1.82, Nucleated RBC % 0, Sodium 142, Potassium 3.8, Chloride 107, Carbon Dioxide 25.5, Anion Gap 9, BUN 5, Creatinine 0.83, Estim Creat Clear Calc 73.50, Est GFR (MDRD) Non-Af 78, BUN/Creatinine Ratio 5.5 L, Glucose 132 H, Calcium 9.0, Phosphorus 2.9, Magnesium 2.2, Total Bilirubin 0.71, AST 138 H, ALT 189 H, Alkaline Phosphatase 150 H, NT pro BNP II 4115 H, Total Protein 6.0, Albumin 3.8, Globulin 2.2, Albumin/Globulin Ratio 1.8 Imaging Radiology Impression Echocardiogram 01/25/25 09:43 Interpretation Summary The estimated ejection fraction is 60???65 %. Normal LV systolic function Heavily calcified posterior mitral annulus Aortic valve area 0.98 cm squire . Peak aortic valve gradient 50.9 mmHg. Mean aortic valve gradient 32.3 mmHg. Mild pulmonary regurgitation No previous echo to compare Ordering Physician: Cathie Aldana Referring Physician: Sabine Power Performed By: Aicha García, RDCS, RVT Chest CTA 01/25/25 10:10 IMPRESSION: There is AP window adenopathy with the largest node measuring 2.3 x 1.7 cm, image 175/250. There is an enlarged precarinal lymph node measuring 1.6 X 1.3 cm, image 166/250. There is heterogeneous increased density in the anterior mediastinum, which may be postsurgical. There is a 1.8 cm pleural effusion on the right and left. There is patchy infiltrate in the right upper lung and left upper lung, with atelectasis or scar in the left lingular segment and right middle lobe. There is no visible pulmonary embolus. Reading Location: [facility] Assessment & Plan Assessment/Plan (1) Nausea and vomiting: (2) Gastroparesis: PLAN: 65yo woman with an exacerbation of underlying cannabinoid hyperemesis syndrome and gastroparesis presenting with intractable nausea, vomiting, and dehydration.?The patient's history of chronic cannabis use, cyclical vomiting, and transient relief from hot showers is classic for CHS, confirmed by previous workups. The co- existing gastroparesis likely complicates the clinical picture, but the hyperemetic phase is the locomotive driver of the current hospitalization. The current episode is most likely triggered by continued cannabis use. Differentialdiagnoses of other gastrointestinal pathology have been largely ruled out through past workups. The lab abnormalities are consistent with cholestatic hepatitis.? The junction with dilated common bile duct at 6.1 without any intrahepatic ductal dilation. ?The new cholestatic hepatitis is highly concerning for drug-induced liver injury (DILI) related to her long-term cannabis use, especially since other common causes of cholestasis are being ruled out. Her intractable nausea and vomiting likely stem from the combination of acute liver inflammation and her underlying gastroparesis, potentially worsened by the acute illness. * Differentials: * Drug-Induced Liver Injury (DILI):?Cannabinoids can cause hepatic injury, * Biliary Obstruction:?Choledocholithiasis , stricture. There was no sign of malignancy on CT scan abdomen pelvis. * Viral Hepatitis:?Both acute and chronic viral hepatitis (e.g., A, B, C) can cause cholestatic patterns, especially in the prodromal phase. * Cholangitis:?An ascending biliary tract infection, a possibility with obstructive cholestasis * Autoimmune Cholestasis:?Such as Primary Biliary Cholangitis (PBC). * Gastroparesis Exacerbation:?The chronic nausea and vomiting could be worsened by acute liver dysfunction. PLAN * Hospitalization:?Admit to the hospital for management of dehydration, electrolyte abnormalities, and intractable emesis. * Supportive Care: * IV fluids:?Aggressive rehydration with intravenous fluids (e.g., Normal Saline or Lactated Ringer's) to correct dehydration and electrolyte deficits. * Electrolyte Repletion:?Monitor and replete potassium and other electrolytes as needed. * Cholestasis Management: * Diagnostic Workup:?Continue investigations to definitively distinguish between intrahepatic and extrahepatic causes of cholestasis with MRCP. * Offending Agent Removal:?Ensure the patient understands that cannabis cessation is the primary treatment for presumed DILI. * Medication:?Ursodeoxycholic Acid can be considered to reduce the toxic effects of bile acids, a common treatment for drug-induced cholestasis, though evidence in this specific context may vary. * Antiemetics: * Atypical agents:?Use benzodiazepines (e.g., lorazepam) or low-dose antipsychotics (e.g., haloperidol or olanzapine), as traditional antiemetics are typically ineffective. * Dopamine Antagonists:?Haloperidol?or droperidol are often effective for CHS. - 33-patient randomized trial, haloperidol at a dose of either 0.05 or 0.1 mg/kg was superior to ondansetron 8 mg in reducing nausea and pain as measured by visual analog scale. * Topical capsaicin:?Consider topical capsaicin cream applied to the abdomen, which has been shown to provide relief in some cases. Icy hot, Biofreeze or [place] balm may be used as substitution for capsaicin. * Avoid opioids:?Avoid opioids for pain management, as they are often ineffective and can worsen gastroparesis. * Symptom Management: * Hot water bathing:?Patient may continue to use hot showers for symptomatic relief during the hyperemetic phase. * Acid suppression:?Proton pump inhibitor (e.g., pantoprazole) for gastritis/esophagitis from vomiting. * Patient Education and Counseling: * Abstinence:?Stress that complete and sustained cessation of cannabis is the only definitive cure for CHS. Charges/Coding Visit Charges Inpatient E&M: 82824 Init Hosp L3 01/25/25 1845 <Electronically signed by Tomas Marroquin DO> Cosigner Signature (if applicable): CC: CLARITZA Power~ Signed [facility] Work Phone: 1(752) 273-541008-26-2025 Progress note [facility] Medical Records Department [address] [place] [address] Progress Note - Hospitalist 01/25/25 185 MR#: [id number] Acct: [id number] Name: ARIEL NGUYEN Rep #:[id number] : 1960 65 From: Cathie Aldana DO PCP: Sabine Power PA-C Status:ADM I N Location: [place] [address] Reason for Visit Chief Complaint: Persistent nausea and vomiting Subjective Subjective I was called by nursing as the patient developed worsening shortness of breath that is seem to be acute in nature. She has known mitral valve disease and acute heart failure with suspected that she has been getting IV fluids. IV fluids had been discontinued. Patient reports ongoing intermittent bouts of nausea that have not subsided since admission. Objective Data Objective Data Vital Signs: Vital Signs Temp Pulse Resp BP Pulse Ox O2 Del Method O2 Flow Rate 97.9 F 56 L 16 117/73 98 Room Air 2 01/25/25 14:00 01/25/25 17:58 01/25/25 14:00 01/25/25 17:58 01/25/25 17:58 01/25/25 17:58 01/25/25 14:00 Oxygen Flow Rate (L/min) 2 Oxygen Delivery Method Room Air Weight: 83.3 kg Body Mass Index (BMI) 29.6 Intake & Output: Intake and Output for Last 24 Hours 01/23/25 01/24/25 01/25/25 23:59 23:59 23:59 Intake Total 5281.68 / 5281.68 702.5 / 702.5 Output Total 5 / 700 / 700 Balance 5281.68 / 5281.68 697.5 / 697.5 -700 / -700 Lab / Micro Data 01/25/25 08:16 01/25/25 08:16 Labs: Laboratory Results - last 24 hr 01/25/25 08:16: WBC 7.6, RBC 4.02 L, Hgb 12.0, Hct 33.5 L, MCV 83.3, MCH 29.9, MCHC 35.8, RDW Std Deviation 40.0, RDW Coeff of Jaimie 13.2, Plt Count 182, MPV 9.8, Immature Gran % (Auto) 0.400, Neut % (Auto) 61.9, Lymph % (Auto) 24.0, Assumption% (Auto) 9.5, Eos % (Auto) 3.3, Baso % (Auto) 0.9, Absolute Neuts (auto) 4.7, Absolute Lymphs (auto) 1.82, Nucleated RBC % 0, Sodium 142, Potassium 3.8, Chloride 107, Carbon Dioxide 25.5, Anion Gap 9, BUN 5, Creatinine 0.83, Estim Creat Clear Calc 73.50, Est GFR (MDRD) Non-Af 78, BUN/Creatinine Ratio 5.5 L, Glucose 132 H, Calcium 9.0, Phosphorus 2.9, Magnesium 2.2, Total Bilirubin 0.71, AST 138 H, ALT 189 H, Alkaline Phosphatase 150 H, NT pro BNP II 4115 H, Total Protein 6.0, Albumin 3.8, Globulin 2.2, Albumin/Globulin Ratio 1.8 Micro: Microbiology 01/19/25 20:30 Urine, Clean Catch Urine Culture - Final Mixed Gram Pos & Gram Neg Org Streptococcus group B Radiography Diagnostic Testing: Radiology Impression Echocardiogram 01/25/25 09:43 Interpretation Summary The estimated ejection fraction is 60???65 %. Normal LV systolic function Heavily calcified posterior mitral annulus Aortic valve area 0.98 cm squire . Peak aortic valve gradient 50.9 mmHg. Mean aortic valve gradient 32.3 mmHg. Mild pulmonary regurgitation No previous echo to compare Ordering Physician: Cathie Aldana Referring Physician: Sabine Power Performed By: Aicha García, CINTHYA, RVT Chest CTA 01/25/25 10:10 IMPRESSION: There is AP window adenopathy with the largest node measuring 2.3 x 1.7 cm, image 175/250. There isan enlarged precarinal lymph node measuring 1.6 X 1.3 cm, image 166/250. There is heterogeneous increased density in the anterior mediastinum, which may be postsurgical. There is a 1.8 cm pleural effusion on the right and left. There is patchy infiltrate in the right upper lung and left upper lung, with atelectasis or scar inthe left lingular segment and right middle lobe. There is no visible pulmonary embolus. Reading [facility] Physical Exam Const alert and oriented x3 Constitutional Narrative: Upper middle-aged, white female, lying in right side-lying, appears uncomfortable but no acute distress, very pleasant HEENT head/scalp atraumatic and moist oral mucous membranes Head and Scalp: normocephalic Eyes Eyes Narrative: No scleral icterus Neck supple Neck Narrative: Trachea midline Resp No normal respiratory effort, no retractions, no use of accessory muscles and Noclear to auscultation bilaterally Resp Narrative: Crackles right base greater than left base however patient is right side-lying, mild tachypnea Auscultation: crackles; Negative for rhonchi or wheezes Cardio regular rate, regular rhythm, S1 normal heart sound, S2 normal heart sound, no gallops and no clicks; Negative for no murmurs Cardio Narrative: 3 out of 6 systolic murmur loudest at left lower sternal border GI soft to palpation and non-distended; Negative for non-tender GI Narrative: Mild tenderness in the epigastrium, bowel sounds are hyperactive Auscultation: hyperactive bowel sounds Extremity no clubbing, cyanosis or edema Extremity Narrative: Pedal pulses are 2+, radial pulses are 2+ Neuro oriented x3, moves all extremities and no focal motor deficits Speech: speech normal Psych Psych Narrative: Affect is slightly flat today but appropriate for current situation, patient is pleasant and interacts appropriately Assessment & Plan Assessment/Plan (1) Nausea and vomiting: (2) Transaminitis: (3) Right shoulder pain: (4) Acute hypoxemic respiratory failure: (5) Aortic valve stenosis, acquired: (6) Mitral valve insufficiency: (7) Acute heart failure with preserved ejection fraction (HFpEF): PLAN: Plan Acute hypoxic respiratory failure secondary to acute decompensated HFpEF - Patient has been on IV fluids and has known mitral valve insufficiency - BNP was found to be markedly elevated - CTA negative for PE but does show multifocal ground glass changes - Patient has been on room air now requiring 5 L nasal cannula - Wean as able - May need to assess ambulatory pulse ox prior to discharge depending on oxygen status at baseline - Start Lasix IV twice daily - Check echocardiogram Intractable nausea and vomiting/Gastroparesis - Has been ongoing and highly suspect cannabis induced hyperemesis however patient is not improvingdespite multiple medical therapies - Consult to GI for assistance with management Transaminitis - suspect related to passive congestion vs medication but r/o other etiologies - MRCP per GI - repeat in am PAF with RVR - Patient had new onset A-fib with RVR but has self converted into normal sinus rhythm - Continue Eliquis - Continue metoprolol 150 mg p.o. twice daily - Patient follows up at [facility] - Echocardiogram pursued today due to respiratory failure History of mitral valve regurgitation - Patient with recent CABG and mitral valve regurgitation was being followed by cardiology at [facility] - Patient has upcoming appointment on March 01 and possible ALEXIS CAD/essential hypertension/hyperlipidemia - Continue atorvastatin - Continue clopidogrel - Hold p.o. Lasix and continue IV Lasix - continue losartan - Continue metoprolol GERD - Continue PPI but transition from p.o. daily to IV twice daily Depression/anxiety/insomnia - Continue home medication regimen Hypothyroidism - Continue home levothyroxine DVT prophylaxis - Patient is on Eliquis for A-fib CODE STATUS - Full code Charges/Coding Visit Charges Inpatient E&M: 06691 [facility] Hosp L3 01/25/251920 Cosigner Signature (if applicable): CC: ~ Signed [facility]08-26-2025 Consult note [facility] Medical Records Department [address] [place] [address] Consultation - GI 01/25/25 1801 MR#: [id number] Acct: [id number] Name: ARIEL NGUYEN Rep #:[id number] : 1960 65 From: Tomas Friend PCP: Sabine Power PA-C Status:ADM I N Location: [place] [address] HPI Consult Data Date of Consult: 01/25/25 HPI Narrative Reason for Consultation: Intractable nausea and vomiting HPI Narrative: ARIEL NGUYEN, is a 65-year-old female patient with a history of chronic cannabis use, previously diagnosed with cannabinoid hyperemesis syndrome (CHS) and cannabis-induced gastroparesis, presents to the emergency department with a 2- day history of intractable nausea and vomiting. The vomiting is cyclic, occurring multiple times per hour, and contains bilious material after initial emptying of stomach contents. The patient reports associated epigastric and diffuse abdominal pain. Nausea and vomiting symptoms were transiently relieved by taking long, hot showers, but returned shortly after. Thepatient reports poor oral intake and significant weight loss over the last several weeks due to fear of vomiting. She admits to daily cannabis use (frequency and amount specified if known, e.g., smoking x amount daily for several years). The patient denies fever, chills, diarrhea, or hematemesis.Standard antiemetics tried at home (e.g., ondansetron) were ineffective, consistent with prior episodes. The patient has been unable to quit cannabis despite prior counseling. She has a past Medical History: Significant cardiovascular disease including recent non-ST segment elevation [place] status post three-vessel CABG on Plavix. Ana has a history of a murmur secondary toa calcified mitral valve. She was previously diagnosed with gastroparesis from unknown cause. 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 She has been getting metoclopramide,Phenergan suppositories, Compazine, Zofran and she has a scopolamine patch alongwith oral Valium. She gets better with hot showers. Yeste rday she was able to eat. However today she has not been able to tolerate liquids or solids. Imaging:? * CT/Abdomen/Pelvis without Cont IMPRESSION: Sludge or tiny gallstones within the gallbladder lumen. Correlation with ultrasound recommended. Punctate calcifications in the body of the pancreas. Status post hysterectomy. Sigmoid diverticulosis. * Ultrasound of the right upper quadrant FINDINGS: Liver: Grossly normal size and echotexture. Gallbladder: Sludge is seen within the gallbladder lumen. The gallbladder wall is not thickened. Common bile duct: Normal measuring 6.1 mm . Pancreas: Normal Echocardiogram 01/25/25 09:43 Interpretation Summary The estimated ejection fraction is 60???65 %. Normal LV systolic function Heavily calcified posterior mitral annulus Aortic valve area 0.98 cm squire . Peak aortic valve gradient 50.9 mmHg. Mean aortic valve gradient 32.3 mmHg. Mild pulmonary regurgitation No previous echo to compare Labs 01/25/25 08:16: Total Bilirubin 0.71, AST 138 H, ALT 189 H, Alkaline Phosphatase 150 H, NT proBNP II 4115 H, Total Protein 6.0, Albumin 3.8, Globulin 2.2, PFSH Medical History Right shoulder pain Home Medications ?Medication ?Instructions ?Recorded ?Last Taken ?Type levothyroxine 88 mcg capsule 88 mcg PO DAILY 10/07/23 Unknown History losartan 25 mg tablet 50 mg PO DAILY 10/07/23 Unkn own History alprazolam 0.25 mg tablet 0.25 mg PO DAILY PRN anxiety 01/19/25 Unknown History atorvastatin 80 mg tablet 80 mg PO QHS 01/19/25 Unknow n History clopidogrel 75 mg tablet 75 mg PO DAILY 01/19/25 Unkn own History desvenlafaxine succinate 50 mg 50 mg PO DAILY 01/19/25 Unknown History tablet,extended release 24 hr furosemide 20 mg tablet 20 mg PO DAILY 01/19/25 Unkn own History hydroxyzine HCl 25 mg tablet 50 mg PO BID 01/19/25 Unk nown History metoprolol tartrate 25 mg tablet 25 mg PO DAILY Unknown History oxcarbazepine 150 mg tablet 150 mg PO BID 01/19/25 Unk nown History pantoprazole 40 mg tablet,delayed 40 mg PO DAILY 01/19 Unknown History release quetiapine 25 mg tablet 25 - 50 mg PO QHS PRN PRN in somnia 01/19/25 Unknown History Allergy/AdvReac Type Severity Reaction Status Date / Time clindamycin AdvReac Other Verified 01/19/25 08:21 Penicillins AdvReac Other Verified 01/19/25 08:21 Sulfa (Sulfonamide AdvReac Other Verified 01/19/25 08:21 Antibiotics) Family History Father Hypertension CVA (cerebral vascular accident) Myocardial infarction Arthritis Mother Arthritis Cancer Sister Hypertension Arthritis Cancer Surgical History H/O thumb surgery H/O wrist surgery Social History household members: significant other Smoking Status: Former smoker alcohol intake: never what type of physical activity do you participate in: walking ROS Constitutional Constitutional: Reports weakness; Denies fever(s) or night sweats Eyes Eyes: Denies blurry vision, change in vision, discharge from eye(s) or eye pain Cardiovascular Cardiovascular: Denies chest pain, claudication, edema or palpitations Respiratory/Chest Respiratory/Chest: Denies cough, hemoptysis, shortness of breath at rest or shortness of breath with exertion Gastrointestinal Gastrointestinal: Reports abdominal pain, nausea and vomiting; Denies constipation, diarrhea, hematemesis, hematochezia or melena Genitourinary Genitourinary: Denies dysuria, hematuria, urinary frequency, urinary hesitancy, urinary incontinence or urinary urgency Musculoskeletal Musculoskeletal: Denies back pain, joint pain, joint stiffness, joint swelling, myalgias or neck pain Neurologic Neurologic: Denies abnormal gait, abnormal speech, dizziness, focal weakness, headache(s), loss of vision, numbness, other visual disturbances, paresthesias, syncope or tingling Psychiatric Psychiatric: Denies anxiety, cognitive impairment, depression, irritability, mood swings or suicidal ideation Endocrine Endocrinology: Denies change in body appearance, cold intolerance, excessive sweating, heat intolerance, polydipsia or polyuria Hematologic/Lymphatic Hematologic/Lymphatic: Denies none, anemia, easy bleeding, easy bruising or lymphadenopathy Allergic/Immunologic Allergic/Immunologic: Denies rhinitis, urticaria, eczemia or asthma Physical Exam Const alert, oriented x3, no apparent distress and healthy appearing General Appearance: cooperative GI normal to inspection, nondistended, normoactive bowel sounds, soft to palpation,non-tender and non-distended Percussion: normal to percussion Rectal Exam: deferred Lab / Micro Data 01/25/25 08:16 01/25/25 08:16 Labs: Laboratory Results - last 24 hr 01/25/25 08:16: WBC 7.6, RBC 4.02 L, Hgb 12.0, Hct 33.5 L, MCV 83.3, MCH 29.9, MCHC 35.8, RDW Std Deviation 40.0, RDW Coeff of Jaimie 13.2, Plt Count 182, MPV 9.8, Immature Gran % (Auto) 0.400, Neut % (Auto) 61.9, Lymph % (Auto) 24.0, [place]% (Auto) 9.5, Eos % (Auto) 3.3, Baso % (Auto) 0.9, Absolute Neuts (auto) 4.7, Absolute Lymphs (auto) 1.82, Nucleated RBC % 0, Sodium 142, Potassium 3.8, Chloride 107, Carbon Dioxide 25.5, Anion Gap 9, BUN 5, Creatinine 0.83, Estim Creat Clear Calc 73.50, Est GFR (MDRD) Non-Af 78, BUN/Creatinine Ratio 5.5 L, Glucose 132 H, Calcium 9.0, Phosphorus 2.9, Magnesium 2.2, Total Bilirubin 0.71, AST 138 H, ALT 189 H, Alkaline Phosphatase 150 H, NT pro BNP II 4115 H, Total Protein 6.0, Albumin 3.8, Globulin 2.2, Albumin/Globulin Ratio 1.8 Imaging Radiology Impression Echocardiogram 01/25/25 09:43 Interpretation Summary The estimated ejection fraction is 60???65 %. Normal LV systolic function Heavily calcified posterior mitral annulus Aortic valve area 0.98 cm squire . Peak aortic valve gradient 50.9 mmHg. Mean aortic valve gradient 32.3 mmHg. Mild pulmonary regurgitation No previous echo to compare Ordering Physician: Cathie Aldana Referring Physician: Sabine Power Performed By: Aicha García, CINTHYA, RVT Chest CTA 01/25/25 10:10 IMPRESSION: There is AP window adenopathy with the largest node measuring 2.3 x 1.7 cm, image 175/250. There isan enlarged precarinal lymph node measuring 1.6 X 1.3 cm, image 166/250. There is heterogeneous increased density in the anterior mediastinum, which may be postsurgical. There is a 1.8 cm pleural effusion on the right and left. There is patchy infiltrate in the right upper lung and left upper lung, with atelectasis or scar inthe left lingular segment and right middle lobe. There is no visible pulmonary embolus. Reading [facility] Assessment & Plan Assessment/Plan (1) Nausea and vomiting: (2) Gastroparesis: PLAN: 65yo woman with an exacerbation of underlying cannabinoid hyperemesis syndrome and gastroparesis presenting with intractable nausea, vomiting, and dehydration.?The patient's history of chronic cannabis use, cyclical vomiting, and transient relief from hot showers is classic for CHS, confirmed by previous workups. The co-existing gastroparesis likely complicates the clinical picture, but the hyperemetic phase is the locomotive driver of the current hospitalization. The current episode is most likely triggered by continued cannabis use. Differentialdiagnoses of other gastrointestinal pathology have been largely ruled out through past workups. The lab abnormalities are consistent with cholestatic hepatitis.? The junction with dilated common bile duct at 6.1 without any intrahepatic ductal dilation. ?The new cholestatic hepatitis is highly concerning for drug-induced liver injury (DILI) related to herlong-term cannabis use, especially since other common causes of cholestasis are being ruled out. Her intractable nausea and vomiting likely stem from the combination of acute liver inflammation and her underlying gastroparesis, potentially worsened by the acute illness. * Differentials: * Drug-Induced Liver Injury (DILI):?Cannabinoids can cause hepatic injury, * Biliary Obstruction:?Choledocholithiasis , stricture. There was no sign of malignancy on CT scan abdomen pelvis. * Viral Hepatitis:?Both acute and chronic viral hepatitis (e.g., A, B, C) can cause cholestatic patterns, especially in the prodromal phase. * Cholangitis:?An ascending biliary tract infection, a possibility with obstructive cholestasis * Autoimmune Cholestasis:?Such as Primary Biliary Cholangitis (PBC). * Gastroparesis Exacerbation:?The chronic nausea and vomiting could be worsened by acute liver dysfunction. PLAN * Hospitalization:?Admit to the hospital for management of dehydration, electrolyte abnormalities, and intractable emesis. * Supportive Care: * IV fluids:?Aggressive rehydration with intravenous fluids (e.g., Normal Saline or Lactated Ringer's) to correct dehydration and electrolyte deficits. * Electrolyte Repletion:?Monitor and replete potassium and other electrolytes as needed. * Cholestasis Management: * Diagnostic Workup:?Continue investigations to definitively distinguish between intrahepatic and extrahepatic causes of cholestasis with MRCP. * Offending Agent Removal:?Ensure the patient understands that cannabis cessation is the primary treatment for presumed DILI. * Medication:?Ursodeoxycholic Acid can be considered to reduce the toxic effects of bile acids, a common treatment for drug-induced cholestasis, though evidence in this specific context may vary. * Antiemetics: * Atypical agents:?Use benzodiazepines (e.g., lorazepam) or low-dose antipsychotics (e.g., haloperidol or olanzapine), as traditional antiemetics are typically ineffective. * Dopamine Antagonists:?Haloperidol?or droperidol are often effective for CHS. - 33-patient randomized trial, haloperidol at a dose of either 0.05 or 0.1 mg/kg was superior to ondansetron 8 mg in reducing nausea and pain as measured by visual analog scale. * Topical capsaicin:?Consider topical capsaicin cream applied to the abdomen, which has been shown to provide relief in some cases. Icy hot, Biofreeze or [place] balm may be used as substitution for capsaicin. * Avoid opioids:?Avoid opioids for pain management, as they are often ineffective and can worsen gastroparesis. * Symptom Management: * Hot water bathing:?Patient may continue to use hot showers for symptomatic relief during the hyperemetic phase. * Acid suppression:?Proton pump inhibitor (e.g., pantoprazole) for gastritis/esophagitis from vomiting. * Patient Education and Counseling: * Abstinence:?Stress that complete and sustained cessation of cannabis is the only definitive cure for CHS. Charges/Coding Visit Charges Inpatient E&M: 26750 Init Hosp 01/25/25 8716 Cosigner Signature (if applicable): CC: CLARITZA Power~ Signed [facility]08-26-2025 Radiology Diagnostic study note [facility] Imaging Services [address] [place] [address] CTA Chest W/WO Contrast MR#: [id number] Acct: [id number] Name: ARIEL NGUYEN Rep #: [id number] : 1960 F 65 From: Jagjit Mccracken MD PCP: Sabine Power PA-C Status: ADM I N Study:CTA Chest W/WO Contrast Date of Exam: 01/25/25 Exam# [id number] Ordering Dr: Rhonda Aldana DO PROCEDURE: CTA CHEST W/WO CONTRAST 01/25/2025 REASON FOR EXAM: HYPOXIA TECHNIQUE: CTA CHEST W/WO CONTRAST Multiplanar Sagittal and Coronal images were obtained. CONTRAST: 100 cc Isovue 370 One or more dose reduction techniques were used (e.g., Automated exposure control, adjustment of the mA and/or kV according to patient size, use of iterative reconstruction technique). RADIATION DOSE SUMMARY: DLP: 459 mGycm COMPARISON: None FINDINGS: Hardware: Sternotomy wires are noted Lymph nodes: There is AP window adenopathy with the largest node measuring 2.3 x1.7 cm, image 175/250. There is an enlarged precarinal lymph node measuring 1.6 X 1.3 cm, image 166/250. There is heterogeneous increased density in the anterior mediastinum, which may be postsurgical. Heart: Atherosclerotic calcifications are noted. RV/LV Diameter Ratio: 0.8 Thoracic Aorta: Within normal limits Pulmonary Vessels: Main pulmonary artery Hounsfield units = 534. There is no visible pulmonary embolus. Lungs and Airways: There is patchy infiltrate in the right upper lung and left upper lung, with atelectasis or scar in the left lingular segment and right middle lobe. Pleura: There is a 1.8 cm pleural effusion on the right and left. Upper Abdomen: Unremarkable Bones: Sternotomy wires are noted. CT/CTA Chest W/WO Contrast IMPRESSION: There is AP window adenopathy with the largest node measuring 2.3 x 1.7 cm, image 175/250. There isan enlarged precarinal lymph node measuring 1.6 X 1.3 cm, image 166/250. There is heterogeneous increased density in the anterior mediastinum, which may be postsurgical. There is a 1.8 cm pleural effusion on the right and left. There is patchy infiltrate in the right upper lung and left upper lung, with atelectasis or scar inthe left lingular segment and right middle lobe. There is no visible pulmonary embolus. Reading Location: [facility] CC: CLARITZA Power; Dr. Cathie Aldana DO ~ Network Operations Analyst: Signed [facility]08-25-2025 Progress note Author Franky Sy [facility] Note Date/Time January 24, 2025 12 :43pm [facility] Medical Records Department [address] [place] [address] Progress Note - Hospitalist 01/24/25 1242 MR#: [id number] Acct: [id number] Name: ARIEL NGUYEN Rep #:[id number] : 1960 65 From: Franky Sy DO PCP: Sabine Power PA-C Status:ADM I N Location: [place] [address] Reason for Visit Chief Complaint: Persistent nausea and vomiting Subjective Subjective Patient was seen and examined today, she is still having nausea, she tried to eat some cheese but ended up throwing it up. Patient remains in sinus rhythm with a rate of approximately 62. Objective Data Objective Data Vital Signs: Vital Signs Temp Pulse Resp BP Pulse Ox O2 Del Method O2 Flow Rate 98.1 F 61 19 H 121/66 H 97 Room Air 2 01/24/25 12:20 01/24/25 12:20 01/24/25 12:20 01/24/25 12:20 01/24/25 12:20 01/24/25 12:20 01/24/25 08:37 Oxygen Flow Rate (L/min) 2 Oxygen Delivery Method Room Air Weight: 83.3 kg Body Mass Index (BMI) 29.6 Intake & Output: Intake and Output for Last 24 Hours 01/22/25 01/23/25 01/24/25 23:59 23:59 23:59 Intake Total 3061.33 / 3063.83 5281.68 / 5281.68 702.5 / 702.5 Balance 3061.33 / 3063.83 5281.68 / 5281.68 702.5 / 702.5 Lab / Micro Data 01/22/25 19:10 01/19/25 10:13 Micro: Microbiology 01/19/25 20:30 Urine, Clean Catch Urine Culture - Final Mixed Gram Pos & Gram Neg Org Streptococcus group B Physical Exam Narrative alert, oriented x3, no apparent distress, average body habitus and healthy appearing General Appearance: cooperative, well kempt and well developed Orientation / Consciousness: awake, oriented to person, oriented to place and oriented to time HEENT normocephalic, head/scalp atraumatic and moist oral mucous membranes Eyes PERRL, EOMs intact bilaterally and conjunctivae normal Neck supple, no JVD, thyroid normal and no carotid bruits General: trachea midline Resp normal respiratory effort and clear to auscultation bilaterally Auscultation: Negative for rales, rhonchi or wheezes Cardio regular rate, regular rhythm, S1 normal heart sound, S2 normal heart sound, no rub and no gallops Cardio Narrative: There is a 3/6 systolic murmur noted at the apex and left sternal border GI normal to inspection, nondistended, normoactive bowel sounds, soft to palpation,non-tender and non-distended Extremity no clubbing, cyanosis or edema Skin no rashes or lesions noted General Skin Exam: no breakdown Neuro oriented x3, CN's II-XII intact bilaterally, no focal motor deficits and no sensory deficits noted Sensorium / Orientation: awake and alert Speech: speech normal Psych affect normal Assessment & Plan Assessment/Plan (1) Nausea and vomiting: PLAN: Plan 1. Uncontrolled nausea and vomiting-possibly secondary to chronic cannabis usage, patient will remain on her present medications to be reevaluated tomorrow, patient states today she is still nauseated, I do not feel adjusting any of her medications would be of any benefit. Patient's symptoms are better on 01/25/2025, she may be considered for discharge home #2 history of gastroparesis-patient is not on any Reglan, patient remains on IV Reglan #3 coronary artery disease-this is stable at this time #4 heart murmur- secondary to mitral regurgitation-patient had a recent coronaryartery bypass and the mitral regurg is being followed by a floor mechanic at the [facility], patient told me today that she is scheduled to have a ALEXIS in the near future. #5 paroxysmal atrial fibrillation with RVR-converted to normal sinus rhythm at this time-patient will remain on metoprolol tartrate 150 mg twice daily and Eliquis 5 mg twice daily. She will need follow-up with her floor mechanic as an outpatient, I have elected not to repeat an echocardiogram on the patient as sheis scheduled to have one in the near future in [place]. Total clinical time spent by myself addressing the patient's medical issues, reviewing all of her data, and collaborating with her care team: 35-minutes Charges/Coding Visit Charges Inpatient E&M: 96232 Subs Hosp L2 01/24/25 1243 <Electronically signed by Franky Sy DO> Cosigner Signature (if applicable): CC: ~ Signed [facility] Work Phone: 1(496) 327-527308-25-2025 Progress note [facility] Medical Records Department [address] [place] [id number] Progress Note - Hospitalist 01/24/25 1242 MR#: [id number] Acct: [id number] Name: ARIEL NGUYEN Rep #:[id number] : 1960 65 From: Franky Sy DO PCP: Sabine Power PA-C Status:ADM I N Location: [place] [address] Reason for Visit Chief Complaint: Persistent nausea and vomiting Subjective Subjective Patient was seen and examined today, she is still having nausea, she tried to eat some cheese but ended up throwing it up. Patient remains in sinus rhythm with a rate of approximately 62. Objective Data Objective Data Vital Signs: Vital Signs Temp Pulse Resp BP Pulse Ox O2 Del Method O2 Flow Rate 98.1 F 61 19 H 121/66 H 97 Room Air 2 01/24/25 12:20 01/24/25 12:20 01/24/25 12:20 01/24/25 12:20 01/24/25 12:20 01/24/25 12:20 01/24/25 08:37 Oxygen Flow Rate (L/min) 2 Oxygen Delivery Method Room Air Weight: 83.3 kg Body Mass Index (BMI) 29.6 Intake & Output: Intake and Output for Last 24 Hours 01/22/25 01/23/25 01/24/25 23:59 23:59 23:59 Intake Total 3061.33 / 3063.83 5281.68 / 5281.68 702.5 / 702.5 Balance 3061.33 / 3063.83 5281.68 / 5281.68 702.5 / 702.5 Lab / Micro Data 01/22/25 19:10 01/19/25 10:13 Micro: Microbiology 01/19/25 20:30 Urine, Clean Catch Urine Culture - Final Mixed Gram Pos & Gram Neg Org Streptococcus group B Physical Exam Narrative alert, oriented x3, no apparent distress, average body habitus and healthy appearing General Appearance: cooperative, well kempt and well developed Orientation / Consciousness: awake, oriented to person, oriented to place and oriented to time HEENT normocephalic, head/scalp atraumatic and moist oral mucous membranes Eyes PERRL, EOMs intact bilaterally and conjunctivae normal Neck supple, no JVD, thyroid normal and no carotid bruits General: trachea midline Resp normal respiratory effort and clear to auscultation bilaterally Auscultation: Negative for rales, rhonchi or wheezes Cardio regular rate, regular rhythm, S1 normal heart sound, S2 normal heart sound, no rub and no gallops Cardio Narrative: There is a 3/6 systolic murmur noted at the apex and left sternal border GI normal to inspection, nondistended, normoactive bowel sounds, soft to palpation,non-tender and non-distended Extremity no clubbing, cyanosis or edema Skin no rashes or lesions noted General Skin Exam: no breakdown Neuro oriented x3, CN's II-XII intact bilaterally, no focal motor deficits and no sensory deficits noted Sensorium / Orientation: awake and alert Speech: speech normal Psych affect normal Assessment & Plan Assessment/Plan (1) Nausea and vomiting: PLAN: Plan 1. Uncontrolled nausea and vomiting-possibly secondary to chronic cannabis usage, patient will remain on her present medications to be reevaluated tomorrow, patient states today she is still nauseated, I do not feel adjusting any of her medications would be of any benefit. Patient's symptoms are better on 01/25/2025, she may be considered for discharge home #2 history of gastroparesis-patient is not on any Reglan, patient remains on IV Reglan #3 coronary artery disease-this is stable at this time #4 heart murmur- secondary to mitral regurgitation-patient had a recent coronaryartery bypass and the mitral regurg is being followed by a floor mechanic at the [facility], patient told me today that she is scheduled to have a ALEXIS in the near future. #5 paroxysmal atrial fibrillation with RVR-converted to normal sinus rhythm at this time-patient will remain on metoprolol tartrate 150 mg twice daily and Eliquis 5 mg twice daily. She will need follow-up with her floor mechanic as an outpatient, I have elected not to repeat an echocardiogram on the patient as sheis scheduled to have one in the near future in [place]. Total clinical time spent by myself addressing the patient's medical issues, reviewing all of her data, and collaborating with her care team: 35-minutes Charges/Coding Visit Charges Inpatient E&M: 51630 Subs Hosp L2 01/24/25 1243 Cosigner Signature (if applicable): CC: ~ Signed [facility]08-24-2025 Progress note Author Franky Sy [facility] Note Date/Time January 23, 2025 10 :57am [facility] Medical Records Department [address] [place] [address] Progress Note - Hospitalist 01/23/25 1054 MR#: [id number] Acct: [id number] Name: ARIEL NGUYEN Rep #:[id number] : 1960 65 From: Franky Sy DO PCP: Sabine Power PA-C Status:ADM I N Location: [place] [address] Reason for Visit Chief Complaint: Persistent nausea and vomiting Subjective Subjective Patient was seen and examined today, she converted to normal sinus rhythm this morning at 72. I discussed her case informally with cardiology and elected to stop her amiodarone drip and placed her on a higher dose of metoprolol, initially I was going to add Cardizem but when the patient converted to normal sinus rhythm I stopped her oral Cardizem. I also talked with her significant other by phone today and answered some questions that she had. Objective Data Objective Data Vital Signs: Vital Signs Temp Pulse Resp BP Pulse Ox O2 Del Method 97.2 F L 74 15 136/69 H 98 Room Air 01/23/25 10:05 01/23/25 10:05 01/23/25 10:05 01/23/25 10:05 01/23/25 10:05 01/23/25 10:05 Oxygen Delivery Method Room Air Weight: 83.3 kg Body Mass Index (BMI) 29.6 Intake & Output: Intake and Output for Last 24 Hours 01/21/25 01/22/25 01/23/25 23:59 23:59 23:59 Intake Total 2535 / 2535 3061.33 / 3063.83 1691.68 / 1691.68 Balance 2535 / 2535 3061.33 / 3063.83 1691.68 / 1691.68 Lab / Micro Data 01/22/25 19:10 01/19/25 10:13 Labs: Laboratory Results - last 24 hr 01/22/25 19:10: WBC 8.8, RBC 4.23, Hgb 12.7, Hct 34.6 L, MCV 81.8, MCH 30.0, MCHC 36.7 H D, RDW Std Deviation 39.0, RDW Coeff of Jaimie 13.2, Plt Count 236, MPV 9.8, Immature Gran % (Auto) 0.500, Neut % (Auto) 62.1, Lymph % (Auto) 26.0, Assumption% (Auto) 8.2, Eos % (Auto) 2.5, Baso % (Auto) 0.7, Absolute Neuts (auto) 5.5, Absolute Lymphs (auto) 2.29, Nucleated RBC % 0, PT 13.8, INR 1.0, APTT 25.5 Micro: Microbiology 01/19/25 20:30 Urine, Clean Catch Urine Culture - Final Mixed Gram Pos & Gram Neg Org Streptococcus group B Physical Exam Const alert, oriented x3, no apparent distress, average body habitus and healthy appearing General Appearance: cooperative, well kempt and well developed Orientation / Consciousness: awake, oriented to person, oriented to place and oriented to time HEENT normocephalic, head/scalp atraumatic and moist oral mucous membranes Eyes PERRL, EOMs intact bilaterally and conjunctivae normal Neck supple, no JVD, thyroid normal and no carotid bruits General: trachea midline Resp normal respiratory effort and clear to auscultation bilaterally Auscultation: Negative for rales, rhonchi or wheezes Cardio regular rate, regular rhythm, S1 normal heart sound, S2 normal heart sound, no rub and no gallops Cardio Narrative: There is a 3/6 systolic murmur noted at the apex and left sternal border GI normal to inspection, nondistended, normoactive bowel sounds, soft to palpation,non-tender and non-distended Extremity no clubbing, cyanosis or edema Skin no rashes or lesions noted General Skin Exam: no breakdown Neuro oriented x3, CN's II-XII intact bilaterally, no focal motor deficits and no sensory deficits noted Sensorium / Orientation: awake and alert Speech: speech normal Psych affect normal Assessment & Plan Assessment/Plan (1) Nausea and vomiting: PLAN: Plan 1. Uncontrolled nausea and vomiting-possibly secondary to chronic cannabis usage, patient will remain on her present medications to be reevaluated tomorrow, patient states today she is still nauseated, I do not feel adjusting any of her medications would be of any benefit. #2 history of gastroparesis-patient is not on any Reglan, patient remains on IV Reglan #3 coronary artery disease-this is stable at this time #4 heart murmur- secondary to mitral regurgitation-patient had a recent coronaryartery bypass and the mitral regurg is being followed by a floor mechanic at the [facility], patient told me today that she is scheduled to have a ALEXIS in the near future. #5 paroxysmal atrial fibrillation with RVR-converted to normal sinus rhythm at this time-patient will remain on metoprolol tartrate 150 mg twice daily and Eliquis 5 mg twice daily. She will need follow-up with her floor mechanic as an outpatient, I have elected not to repeat an echocardiogram on the patient as sheis scheduled to have one in the near future in [place]. Total clinical time spent by myself addressing the patient's medical issues, reviewing all of her data, and collaborating with her care team: 35-minutes Charges/Coding Visit Charges Inpatient E&M: 47018 Subs Hosp L2 01/23/25 1058 <Electronically signed by Franky Sy DO> Cosigner Signature (if applicable): CC: ~ Signed [facility] Work Phone: 1(219) 602-959108-24-2025 Progress note [facility] Medical Records Department [address] [place] [address] Progress Note - Hospitalist 01/23/25 1054 MR#: [id number] Acct: [id number] Name: ARIEL NGUYEN Rep #:[id number] : 1960 65 From: Franky Sy DO PCP: Sabine Power PA-C Status:ADM I N Location: [place] [address] Reason for Visit Chief Complaint: Persistent nausea and vomiting Subjective Subjective Patient was seen and examined today, she converted to normal sinus rhythm this morning at 72. I discussed her case informally with cardiology and elected to stop her amiodarone drip and placed her wally higher dose of metoprolol, initially I was going to add Cardizem but when the patient converted to normal sinus rhythm I stopped her oral Cardizem. I also talked with her significant other by phonetoday and answered some questions that she had. Objective Data Objective Data Vital Signs: Vital Signs Temp Pulse Resp BP Pulse Ox O2 Del Method 97.2 F L 74 15 136/69 H 98 Room Air 01/23/25 10:05 01/23/25 10:05 01/23/25 10:05 01/23/25 10:05 01/23/25 10:05 01/23/25 10:05 Oxygen Delivery Method Room Air Weight: 83.3 kg Body Mass Index (BMI) 29.6 Intake & Output: Intake and Output for Last 24 Hours 01/21/25 01/22/25 01/23/25 23:59 23:59 23:59 Intake Total 2535 / 2535 3061.33 / 3063.83 1691.68 / 1691.68 Balance 2535 / 2535 3061.33 / 3063.83 1691.68 / 1691.68 Lab / Micro Data 01/22/25 19:10 01/19/25 10:13 Labs: Laboratory Results - last 24 hr 01/22/25 19:10: WBC 8.8, RBC 4.23, Hgb 12.7, Hct 34.6 L, MCV 81.8, MCH 30.0, MCHC 36.7 H D, RDW StdDeviation 39.0, RDW Coeff of Jaimie 13.2, Plt Count 236, MPV 9.8, Immature Gran % (Auto) 0.500, Neut %(Auto) 62.1, Lymph % (Auto) 26.0, Assumption% (Auto) 8.2, Eos % (Auto) 2.5, Baso % (Auto) 0.7, Absolute Neuts (auto) 5.5, Absolute Lymphs (auto) 2.29, Nucleated RBC % 0, PT 13.8, INR 1.0, APTT 25.5 Micro: Microbiology 01/19/25 20:30 Urine, Clean Catch Urine Culture - Final Mixed Gram Pos & Gram Neg Org Streptococcus group B Physical Exam Const alert, oriented x3, no apparent distress, average body habitus and healthy appearing General Appearance: cooperative, well kempt and well developed Orientation / Consciousness: awake, oriented to person, oriented to place and oriented to time HEENT normocephalic, head/scalp atraumatic and moist oral mucous membranes Eyes PERRL, EOMs intact bilaterally and conjunctivae normal Neck supple, no JVD, thyroid normal and no carotid bruits General: trachea midline Resp normal respiratory effort and clear to auscultation bilaterally Auscultation: Negative for rales, rhonchi or wheezes Cardio regular rate, regular rhythm, S1 normal heart sound, S2 normal heart sound, no rub and no gallops Cardio Narrative: There is a 3/6 systolic murmur noted at the apex and left sternal border GI normal to inspection, nondistended, normoactive bowel sounds, soft to palpation,non-tender and non-distended Extremity no clubbing, cyanosis or edema Skin no rashes or lesions noted General Skin Exam: no breakdown Neuro oriented x3, CN's II-XII intact bilaterally, no focal motor deficits and no sensory deficits noted Sensorium / Orientation: awake and alert Speech: speech normal Psych affect normal Assessment & Plan Assessment/Plan (1) Nausea and vomiting: PLAN: Plan 1. Uncontrolled nausea and vomiting-possibly secondary to chronic cannabis usage, patient will remain on her present medications to be reevaluated tomorrow, patient states today she is still nauseated, I do not feel adjusting any of her medications would be of any benefit. #2 history of gastroparesis-patient is not on any Reglan, patient remains on IV Reglan #3 coronary artery disease-this is stable at this time #4 heart murmur- secondary to mitral regurgitation-patient had a recent coronaryartery bypass and the mitral regurg is being followed by a floor mechanic at the [facility], patient told me today that she is scheduled to have a ALEXIS in the near future. #5 paroxysmal atrial fibrillation with RVR-converted to normal sinus rhythm at this time-patient will remain on metoprolol tartrate 150 mg twice daily and Eliquis 5 mg twice daily. She will need follow-up with her floor mechanic as an outpatient, I have elected not to repeat an echocardiogram on the patient as sheis scheduled to have one in the near future in [place]. Total clinical time spent by myself addressing the patient's medical issues, reviewing all of her data, and collaborating with her care team: 35-minutes Charges/Coding Visit Charges Inpatient E&M: 81803 Subs Hosp L2 01/23/25 1057 Cosigner Signature (if applicable): CC: ~ Signed [facility]08-24-2025 Progress note Author Meaghan Schmid [facility] Note Date/Time January 23, 2025 12 :55am [facility] Medical Records Department [address] [place] [address] Progress Note - Hospitalist 01/23/2553 MR#: [id number] Acct: [id number] Name: ARIEL NGUYEN Rep #:[id number] : 1960 65 From: Meaghan Schmid MD PCP: Sabine Power PA-C Status:ADM I N Location: [place] [address] Hospitalist Note Patient unable to tolerate cardizem, eventually BP decreasing to SBP 70s, despite only being low dose, will d/c. Currently HR improved 80-100 range. Will monitor off cardizem and continue to reassess BP with IVF bolus if needed. If HRincreases again, may require transition to amiodarone drip. 01/23/2554 <Electronically signed by Meaghan Schmid MD> Cosigner Signature (if applicable): CC: ~ Signed [facility] Work Phone: 1(912) 221-330508-24-2025 Progress note [facility] Medical Records Department [address] [place] [address] Progress Note - Hospitalist 01/23/25 0054 MR#: [id number] Acct: [id number] Name: ARIEL NGUYEN Rep #:[id number] : 1960 65 From: Meaghan Schmid MD PCP: Sabine Power PA-C Status:ADM I N Location: [place] [address] Hospitalist Note Patient unable to tolerate cardizem, eventually BP decreasing to SBP 70s, despite only being low dose, will d/c. Currently HR improved 80-100 range. Will monitor off cardizem and continue to reassessBP with IVF bolus if needed. If HRincreases again, may require transition to amiodarone drip. 01/23/2554 Cosigner Signature (if applicable): CC: ~ Signed [facility]08-23-2025 Progress note Author [facility] Note Date/Time January 22, 2025 7: 15pm [facility] Medical Records Department [address] [place] [address] Progress Note - Hospitalist 01/22/25 1853 MR#: [id number] Acct: [id number] Name: ARIEL NGUYEN Rep #:[id number] : 1960 65 From: Volodymyr etienne DO PCP: Sabine Power PA-C Status:ADM I N Location: [place] [address] Hospitalist Note Notified by nursing that patient remains in A-fib with RVR with rate in the 130sto 140s despite multiple interventions this afternoon. Patient was given 2 boluses of IV Cardizem, p.o. Lopressor 50 mg and a dose of IV Lopressor 5 mg over the past 3 hours with only mild improvement in heart rate. Will start Cardizem drip at this time. Okay to continue p.o. Lopressor 100 mg twice daily. Will also start heparin drip at this time for anticoagulation and will hold home Plavix to minimize bleeding risk. 01/22/251914 <Electronically signed by Volodymyr Scruggs DO> Cosigner Signature (if applicable): CC: ~ Signed [facility] Work Phone: 1(455) 253-878508-23-2025 Progress note [facility] Medical Records Department [address] [place] [address] Progress Note - Hospitalist 01/22/25 1853 MR#: [id number] Acct: [id number] Name: ARIEL NGUYEN Rep #:[id number] : 1960 65 From: Volodymyr etienne DO PCP: Sabine Power PA-C Status:ADM I N Location: [place] [address] Hospitalist Note Notified by nursing that patient remains in A-fib with RVR with rate in the 130sto 140s despite multiple interventions this afternoon. Patient was given 2 boluses of IV Cardizem, p.o. Lopressor 50 mgand a dose of IV Lopressor 5 mg over the past 3 hours with only mild improvement in heart rate. Will start Cardizem drip at this time. Okay to continue p.o. Lopressor 100 mg twice daily. Will also start heparin drip at this time for anticoagulation and will hold home Plavix to minimize bleeding risk. 01/22/251914 Cosigner Signature (if applicable): CC: ~ Signed [facility]08-23-2025 Progress note Author [facility]y [facility] Note Date/Time January 22, 2025 2: 57pm [facility] Medical Records Department [address] [place] [address] Progress Note - Hospitalist 01/22/25 1440 MR#: [id number] Acct: [id number] Name: ARIEL NGUYEN Rep #:[id number] : 1960 65 From: Franky Sy DO PCP: Sabine Power PA-C Status:ADM I N Location: [place] [address] Reason for Visit Chief Complaint: Persistent nausea and vomiting Subjective Subjective Patient was seen and examined today, she states she feels a little bit better today. I have elected to increase her Dramamine to 50 mg 3 times daily, she remains on Valium, IV fluids, and IV Reglan for now Objective Data Objective Data Vital Signs: Vital Signs Temp Pulse Resp BP Pulse Ox O2 Del Method 98.0 F 100 18 134/71 H 96 Room Air 01/22/25 08:50 08/23/25 08:50 01/22/25 08:50 01/22/25 08:50 01/22/25 08:50 01/22/25 09:44 Oxygen Delivery Method Room Air Weight: 83.3 kg Body Mass Index (BMI) 29.6 Intake & Output: Intake and Output for Last 24 Hours 01/20/25 01/21/25 01/22/25 23:59 23:59 23:59 Intake Total 2705 / 3120 2535 / 2535 1450 / 1450 Balance 2705 / 3120 2535 / 2535 1450 / 1450 Lab / Micro Data 01/19/25 10:13 01/19/25 10:13 Micro: Microbiology 01/19/25 20:30 Urine, Clean Catch Urine Culture - Final Mixed Gram Pos & Gram Neg Org Streptococcus group B Physical Exam Narrative alert, oriented x3 and no apparent distress Constitutional Narrative: Patient appears uncomfortable due to nausea General Appearance: cooperative, well kempt and well developed Orientation / Consciousness: awake, oriented to person, oriented to place and oriented to time HEENT normocephalic, head/scalp atraumatic, hearing grossly normal bilaterally and moist oral mucous membranes Eyes PERRL, EOMs intact bilaterally and conjunctivae normal Neck supple, no JVD, thyroid normal and no carotid bruits General: trachea midline Resp normal respiratory effort, no retractions, no use of accessory muscles and clearto auscultation bilaterally Auscultation: Negative for rales, rhonchi or wheezes Cardio regular rate, regular rhythm, S1 normal heart sound, S2 normal heart sound, patient has a 3/6 systolic murmur at the left sternal border and apex GI normal to inspection, nondistended, normoactive bowel sounds, soft to palpation,non-tender and non-distended Extremity no clubbing, cyanosis or edema Skin no rashes or lesions noted General Skin Exam: no breakdown Neuro oriented x3, CN's II-XII intact bilaterally, no focal motor deficits and no sensory deficits noted Sensorium / Orientation: awake and alert Speech: speech normal Psych affect normal Assessment & Plan Assessment/Plan (1) Nausea and vomiting: PLAN: Plan 1. Uncontrolled nausea and vomiting-possibly secondary to chronic cannabis usage, patient will remain on her present medications to be reevaluated tomorrow #2 history of gastroparesis-patient is not on any Reglan, patient remains on IV Reglan #3 coronary artery disease-this is stable at this time #4 heart murmur- secondary to mitral regurgitation-patient had a recent coronaryartery bypass and the mitral regurg is being followed by a floor mechanic at the [facility], patient told me today that she is scheduled to have a ALEXIS in the near future. Total clinical time spent by myself addressing the patient's medical issues, reviewing all of her data, and collaborating with her care team: 35-minutes Charges/Coding Visit Charges Inpatient E&M: 05109 Subs Hosp L2 01/22/25 7627 <Electronically signed by Franky Sy DO> Cosigner Signature (if applicable): CC: ~ Signed [facility] Work Phone: 1(360) 860-310708-23-2025 Progress note [facility] Medical Records Department [address] [place] [address] Progress Note - Hospitalist 01/22/25 1440 MR#: [id number] Acct: [id number] Name: ARIEL NGUYEN Rep #:[id number] : 1960 65 From: Franky Sy DO PCP: Sabine Power PA-C Status:ADM I N Location: [place] [address] Reason for Visit Chief Complaint: Persistent nausea and vomiting Subjective Subjective Patient was seen and examined today, she states she feels a little bit better today. I have electedto increase her Dramamine to 50 mg 3 times daily, she remains on Valium, IV fluids, and IV Reglan for now Objective Data Objective Data Vital Signs: Vital Signs Temp Pulse Resp BP Pulse Ox O2 Del Method 98.0 F 100 18 134/71 H 96 Room Air 01/22/25 08:50 01/22/25 08:50 01/22/25 08:50 01/22/25 08:50 01/22/25 08:50 01/22/25 09:44 Oxygen Delivery Method Room Air Weight: 83.3 kg Body Mass Index (BMI) 29.6 Intake & Output: Intake and Output for Last 24 Hours 01/20/25 01/21/25 01/22/25 23:59 23:59 23:59 Intake Total 2705 / 3120 2535 / 2535 1450 / 1450 Balance 270 / 0 2534 / 5 1450 / 1450 Lab / Micro Data 01/19/25 10:13 01/19/25 10:13 Micro: Microbiology 01/19/25 20:30 Urine, Clean Catch Urine Culture - Final Mixed Gram Pos & Gram Neg Org Streptococcus group B Physical Exam Narrative alert, oriented x3 and no apparent distress Constitutional Narrative: Patient appears uncomfortable due to nausea General Appearance: cooperative, well kempt and well developed Orientation / Consciousness: awake, oriented to person, oriented to place and oriented to time HEENT normocephalic, head/scalp atraumatic, hearing grossly normal bilaterally and moist oral mucous membranes Eyes PERRL, EOMs intact bilaterally and conjunctivae normal Neck supple, no JVD, thyroid normal and no carotid bruits General: trachea midline Resp normal respiratory effort, no retractions, no use of accessory muscles and clearto auscultation bilaterally Auscultation: Negative for rales, rhonchi or wheezes Cardio regular rate, regular rhythm, S1 normal heart sound, S2 normal heart sound, patient has a 3/6 systolic murmur at the left sternal border and apex GI normal to inspection, nondistended, normoactive bowel sounds, soft to palpation,non-tender and non-distended Extremity no clubbing, cyanosis or edema Skin no rashes or lesions noted General Skin Exam: no breakdown Neuro oriented x3, CN's II-XII intact bilaterally, no focal motor deficits and no sensory deficits noted Sensorium / Orientation: awake and alert Speech: speech normal Psych affect normal Assessment & Plan Assessment/Plan (1) Nausea and vomiting: PLAN: Plan 1. Uncontrolled nausea and vomiting-possibly secondary to chronic cannabis usage, patient will remain on her present medications to be reevaluated tomorrow #2 history of gastroparesis-patient is not on any Reglan, patient remains on IV Reglan #3 coronary artery disease-this is stable at this time #4 heart murmur- secondary to mitral regurgitation-patient had a recent coronaryartery bypass and the mitral regurg is being followed by a floor mechanic at the [facility], patient told me today that she is scheduled to have a ALEXIS in the near future. Total clinical time spent by myself addressing the patient's medical issues, reviewing all of her data, and collaborating with her care team: 35-minutes Charges/Coding Visit Charges Inpatient E&M: 47998 Subs Hosp L2 01/22/25 1909 Cosigner Signature (if applicable): CC: ~ Signed [facility]08-23-2025 Progress note Author Franky Sy [facility] Note Date/Time January 22, 2025 7: 18am [facility] Medical Records Department [address] [place] [address] Progress Note - Hospitalist 01/22/25 0717 MR#: [id number] Acct: [id number] Name: ARIEL NGUYEN Rep #:[id number] : 1960 65 From: Franky Sy DO PCP: Sabine Power PA-C Status:ADM I N Location: [place] [address] Reason for Visit Chief Complaint: Persistent nausea and vomiting Subjective Subjective The date of this progress note should read 01/21/2025, patient was seen and examined today, she has been taking showers to alleviate her nausea and vomiting. Patient still has significant nausea. I changed her IV fluid today. Objective Data Objective Data Vital Signs: Vital Signs Temp Pulse Resp BP Pulse Ox O2 Del Method 98.1 F 87 16 94/67 96 Room Air 01/22/25 03:00 01/22/25 03:00 01/22/25 03:00 01/22/25 03:00 01/22/25 03:00 01/22/25 03:36 Oxygen Delivery Method Room Air Weight: 83.3 kg Body Mass Index (BMI) 29.6 Intake & Output: Intake and Output for Last 24 Hours 01/20/25 01/21/25 01/22/25 23:59 23:59 23:59 Intake Total 2705 / 3120 2535 / 2535 50 / 50 Balance 2705 / 3120 2535 / 2535 50 / 50 Lab / Micro Data 01/19/25 10:13 01/19/25 10:13 Micro: Microbiology 01/19/25 20:30 Urine, Clean Catch Urine Culture - Preliminary Mixed Gram Pos & Gram Neg Org Streptococcus group B Physical Exam Narrative alert, oriented x3 and no apparent distress Constitutional Narrative: Patient appears uncomfortable due to nausea General Appearance: cooperative, well kempt and well developed Orientation / Consciousness: awake, oriented to person, oriented to place and oriented to time HEENT normocephalic, head/scalp atraumatic, hearing grossly normal bilaterally and moist oral mucous membranes Eyes PERRL, EOMs intact bilaterally and conjunctivae normal Neck supple, no JVD, thyroid normal and no carotid bruits General: trachea midline Resp normal respiratory effort, no retractions, no use of accessory muscles and clearto auscultation bilaterally Auscultation: Negative for rales, rhonchi or wheezes Cardio regular rate, regular rhythm, S1 normal heart sound, S2 normal heart sound, patient has a 3/6 systolic murmur at the left sternal border and apex GI normal to inspection, nondistended, normoactive bowel sounds, soft to palpation,non-tender and non-distended Extremity no clubbing, cyanosis or edema Skin no rashes or lesions noted General Skin Exam: no breakdown Neuro oriented x3, CN's II-XII intact bilaterally, no focal motor deficits and no sensory deficits noted Sensorium / Orientation: awake and alert Speech: speech normal Psych affect normal Assessment & Plan Assessment/Plan (1) Nausea and vomiting: PLAN: Plan 1. Uncontrolled nausea and vomiting-possibly secondary to chronic cannabis usage, patient will remain on her present medications to be reevaluated tomorrow #2 history of gastroparesis-patient is not on any Reglan, patient remains on IV Reglan #3 coronary artery disease-this is stable at this time #4 heart murmur- secondary to mitral regurgitation-patient had a recent coronaryartery bypass and the mitral regurg is being followed by a floor mechanic at the [facility], patient told me today that she is scheduled to have a ALEXIS in the near future. Total clinical time spent by myself addressing the patient's medical issues, reviewing all of her data, and collaborating with her care team: 35-minutes Charges/Coding Visit Charges Inpatient E&M: 82507 Subs Hosp L2 01/22/2518 <Electronically signed by Franky Sy DO> Cosigner Signature (if applicable): CC: ~ Signed [facility] Work Phone: 1(409) 690-564508-23-2025 Progress note [facility] Medical Records Department [facility] [place] [address] Progress Note - Hospitalist 01/22/25 07 MR#: [id number] Acct: [id number] Name: ARIEL NGUYEN Rep #:[id number] : 1960 65 From: Franky Sy DO PCP: Sabine Power PA-C Status:ADM I N Location: [place] [address] Reason for Visit Chief Complaint: Persistent nausea and vomiting Subjective Subjective The date of this progress note should read 01/21/2025, patient was seen and examined today, she has been taking showers to alleviate her nausea and vomiting. Patient still has significant nausea. I changed her IV fluid today. Objective Data Objective Data Vital Signs: Vital Signs Temp Pulse Resp BP Pulse Ox O2 Del Method 98.1 F 87 16 94/67 96 Room Air 01/22/25 03:00 01/22/25 03:00 01/22/25 03:00 01/22/25 03:00 01/22/25 03:00 01/22/25 03:36 Oxygen Delivery Method Room Air Weight: 83.3 kg Body Mass Index (BMI) 29.6 Intake & Output: Intake and Output for Last 24 Hours 01/20/25 01/21/25 01/22/25 23:59 23:59 23:59 Intake Total 2705 / 3120 2535 / 2535 50 / 50 Balance 2705 / 3120 2535 / 2535 50 / 50 Lab / Micro Data 01/19/25 10:13 01/19/25 10:13 Micro: Microbiology 01/19/25 20:30 Urine, Clean Catch Urine Culture - Preliminary Mixed Gram Pos & Gram Neg Org Streptococcus group B Physical Exam Narrative alert, oriented x3 and no apparent distress Constitutional Narrative: Patient appears uncomfortable due to nausea General Appearance: cooperative, well kempt and well developed Orientation / Consciousness: awake, oriented to person, oriented to place and oriented to time HEENT normocephalic, head/scalp atraumatic, hearing grossly normal bilaterally and moist oral mucous membranes Eyes PERRL, EOMs intact bilaterally and conjunctivae normal Neck supple, no JVD, thyroid normal and no carotid bruits General: trachea midline Resp normal respiratory effort, no retractions, no use of accessory muscles and clearto auscultation bilaterally Auscultation: Negative for rales, rhonchi or wheezes Cardio regular rate, regular rhythm, S1 normal heart sound, S2 normal heart sound, patient has a 3/6 systolic murmur at the left sternal border and apex GI normal to inspection, nondistended, normoactive bowel sounds, soft to palpation,non-tender and non-distended Extremity no clubbing, cyanosis or edema Skin no rashes or lesions noted General Skin Exam: no breakdown Neuro oriented x3, CN's II-XII intact bilaterally, no focal motor deficits and no sensory deficits noted Sensorium / Orientation: awake and alert Speech: speech normal Psych affect normal Assessment & Plan Assessment/Plan (1) Nausea and vomiting: PLAN: Plan 1. Uncontrolled nausea and vomiting-possibly secondary to chronic cannabis usage, patient will remain on her present medications to be reevaluated tomorrow #2 history of gastroparesis-patient is not on any Reglan, patient remains on IV Reglan #3 coronary artery disease-this is stable at this time #4 heart murmur- secondary to mitral regurgitation-patient had a recent coronaryartery bypass and the mitral regurg is being followed by a floor mechanic at the [facility], patient told me today that she is scheduled to have a ALEXIS in the near future. Total clinical time spent by myself addressing the patient's medical issues, reviewing all of her data, and collaborating with her care team: 35-minutes Charges/Coding Visit Charges Inpatient E&M: 47257 Subs Hosp L2 01/22/25 0718 Cosigner Signature (if applicable): CC: ~ Signed [facility]08-22-2025 Progress note Author Franky Sy [facility] Note Date/Time January 21, 2025 8: 18am [facility] Medical Records Department [address] [place] [address] Progress Note - Hospitalist 01/20/25 1840 MR#: [id number] Acct: [id number] Name: ARIEL NGUYEN Rep #:[id number] : 1960 65 From: Franky Sy DO PCP: Sabine Power PA-C Status:ADM I N Location: [place] [address] Reason for Visit Chief Complaint: Persistent nausea and vomiting Subjective Subjective Patient was seen and examined today, she wanted to take a shower and in order todo that telemetry had to be discontinued, she stated her Haldol IV was not working for her nausea so I discontinued the IV Haldol and took her off telemetry. I added Antivert to her medications and increased her Valium dosage. She states that she feels the Valium has done the most to help her nausea. Patient remains on IV Reglan and IV fluids. Objective Data Objective Data Vital Signs: Vital Signs Temp Pulse Resp BP Pulse Ox O2 Del Method 98.6 F 80 16 165/73 H 96 Room Air 01/20/25 14:21 01/20/25 14:21 01/20/25 14:21 01/20/25 14:21 01/20/25 14:21 01/20/25 14:21 Oxygen Delivery Method Room Air Weight: 83.3 kg Body Mass Index (BMI) 29.6 Intake & Output: Intake and Output for Last 24 Hours 01/18/25 01/19/25 01/20/25 23:59 23:59 23:59 Intake Total 1999 Balance 1999 Lab / Micro Data 01/19/25 10:13 01/19/25 10:13 Physical Exam Narrative alert, oriented x3 and no apparent distress Constitutional Narrative: Patient appears uncomfortable due to nausea General Appearance: cooperative, well kempt and well developed Orientation / Consciousness: awake, oriented to person, oriented to place and oriented to time HEENT normocephalic, head/scalp atraumatic, hearing grossly normal bilaterally and moist oral mucous membranes Eyes PERRL, EOMs intact bilaterally and conjunctivae normal Neck supple, no JVD, thyroid normal and no carotid bruits General: trachea midline Resp normal respiratory effort, no retractions, no use of accessory muscles and clearto auscultation bilaterally Auscultation: Negative for rales, rhonchi or wheezes Cardio regular rate, regular rhythm, S1 normal heart sound, S2 normal heart sound, patient has a 3/6 systolic murmur at the left sternal border and apex GI normal to inspection, nondistended, normoactive bowel sounds, soft to palpation,non-tender and non-distended Extremity no clubbing, cyanosis or edema Skin no rashes or lesions noted General Skin Exam: no breakdown Neuro oriented x3, CN's II-XII intact bilaterally, no focal motor deficits and no sensory deficits noted Sensorium / Orientation: awake and alert Speech: speech normal Psych affect normal Assessment & Plan Assessment/Plan (1) Nausea and vomiting: PLAN: Plan 1. Uncontrolled nausea and vomiting-possibly secondary to chronic cannabis usage, patient's Haldol was discontinued today, she will be taken off telemetry,I have elected to place her on Antivert scheduled and increase her Valium to 7.5mg 4 times a day #2 history of gastroparesis-patient is not on any Reglan, patient remains on IV Reglan #3 coronary artery disease-this is stable at this time #4 heart murmur- secondary to mitral regurgitation-patient had a recent coronaryartery bypass and the mitral regurg is being followed by a floor mechanic at the [facility], patient told me today that she is scheduled to have a ALEXIS in the near future. Total clinical time spent by myself addressing the patient's medical issues, reviewing all of her data, and collaborating with her care team: 35-minutes Charges/Coding Visit Charges Inpatient E&M: 54858 Subs Hosp L2 01/21/25 0818 <Electronically signed by Franky Sy DO> Cosigner Signature (if applicable): CC: ~ Signed [facility] Work Phone: 1(594) 349-783508-22-2025 Progress note [facility] Medical Records Department [address] [place] [address] Progress Note - Hospitalist 01/20/25 1840 MR#: [id number] Acct: [id number] Name: ARIEL NGUYEN Rep #:[id number] : 1960 65 From: Franky Sy DO PCP: Sabine Power PA-C Status:ADM I N Location: [place] [address] Reason for Visit Chief Complaint: Persistent nausea and vomiting Subjective Subjective Patient was seen and examined today, she wanted to take a shower and in order todo that telemetry had to be discontinued, she stated her Haldol IV was not working for her nausea so I discontinued theIV Haldol and took her off telemetry. I added Antivert to her medications and increased her Valium dosage. She states that she feels the Valium has done the most to help her nausea. Patient remains on IV Reglan and IV fluids. Objective Data Objective Data Vital Signs: Vital Signs Temp Pulse Resp BP Pulse Ox O2 Del Method 98.6 F 80 16 165/73 H 96 Room Air 01/20/25 14:21 01/20/25 14:21 01/20/25 14:21 01/20/25 14:21 01/20/25 14:21 01/20/25 14:21 Oxygen Delivery Method Room Air Weight: 83.3 kg Body Mass Index (BMI) 29.6 Intake & Output: Intake and Output for Last 24 Hours 01/18/25 01/19/25 01/20/25 23:59 23:59 23:59 Intake Total 1999 Balance 1999 Lab / Micro Data 01/19/25 10:13 01/19/25 10:13 Physical Exam Narrative alert, oriented x3 and no apparent distress Constitutional Narrative: Patient appears uncomfortable due to nausea General Appearance: cooperative, well kempt and well developed Orientation / Consciousness: awake, oriented to person, oriented to place and oriented to time HEENT normocephalic, head/scalp atraumatic, hearing grossly normal bilaterally and moist oral mucous membranes Eyes PERRL, EOMs intact bilaterally and conjunctivae normal Neck supple, no JVD, thyroid normal and no carotid bruits General: trachea midline Resp normal respiratory effort, no retractions, no use of accessory muscles and clearto auscultation bilaterally Auscultation: Negative for rales, rhonchi or wheezes Cardio regular rate, regular rhythm, S1 normal heart sound, S2 normal heart sound, patient has a 3/6 systolic murmur at the left sternal border and apex GI normal to inspection, nondistended, normoactive bowel sounds, soft to palpation,non-tender and non-distended Extremity no clubbing, cyanosis or edema Skin no rashes or lesions noted General Skin Exam: no breakdown Neuro oriented x3, CN's II-XII intact bilaterally, no focal motor deficits and no sensory deficits noted Sensorium / Orientation: awake and alert Speech: speech normal Psych affect normal Assessment & Plan Assessment/Plan (1) Nausea and vomiting: PLAN: Plan 1. Uncontrolled nausea and vomiting-possibly secondary to chronic cannabis usage, patient's Haldol was discontinued today, she will be taken off telemetry,I have elected to place her on Antivert scheduled and increase her Valium to 7.5mg 4 times a day #2 history of gastroparesis-patient is not on any Reglan, patient remains on IV Reglan #3 coronary artery disease-this is stable at this time #4 heart murmur- secondary to mitral regurgitation-patient had a recent coronaryartery bypass and the mitral regurg is being followed by a floor mechanic at the [facility], patient told me today that she is scheduled to have a ALEXIS in the near future. Total clinical time spent by myself addressing the patient's medical issues, reviewing all of her data, and collaborating with her care team: 35-minutes Charges/Coding Visit Charges Inpatient E&M: 87837 Subs Hosp L2 01/21/25 0818 Cosigner Signature (if applicable): CC: ~ Signed [facility]08-20-2025 History and physical note Author [facility]y [facility] Note Date/Time January 19, 2025 6: 48pm [facility] Medical Records Department [address] [place] [address] H&P Exam - Hospitalist 01/19/25 1842 MR#: [id number] Acct: [id number] Name: ARIEL NGUYEN Rep #:[id number] 2 : 1960 65 From: Franky Sy DO PCP: Sabine Power PA-C Status:ADM I N Location: [place] [address] HPI - General General Date of Admission: 01/19/25 Date of Service: 01/19/25 Chief Complaint: Persistent nausea and vomiting HPI Narrative ARIEL NGUYEN, is a 65 F who presents to the room at [facility] for persistent nausea and vomiting, this started 48 hours ago after she ate somevegetables with [place] dressing on it. Patient is a daily user of marijuana. Labs were obtained and were unremarkable, abdominal and pelvic CT showed sludge or tiny gallstones within the gallbladder lumen and punctate calcifications in the body of the pancreas. Abdominal ultrasound reveals sludge within the gallbladder lumen. Patient was given IV Haldol in the emergency room but still had nausea. Patient will be admitted to [facility] for persistent nausea and vomiting-suspicious for cannabis hyperemesis syndrome (CHS). I have elected to place her on IV Reglan and give her IV Compazine initially fornausea and vomiting, it may be necessary to adjust these medications if she doesnot respond. Patient will be given IV fluids [facility] Medical History Right shoulder pain Home Medications ?Medication ?Instructions ?Recorded ?Last Taken ?Type levothyroxine 88 mcg capsule 88 mcg PO DAILY 10/07/23 Unknown History losartan 25 mg tablet 50 mg PO DAILY 10/07/23 Unkn own History alprazolam 0.25 mg tablet 0.25 mg PO DAILY PRN anxiety 01/19/25 Unknown History atorvastatin 80 mg tablet 80 mg PO QHS 01/19/25 Unknow n History clopidogrel 75 mg tablet 75 mg PO DAILY 01/19/25 Unkn own History desvenlafaxine succinate 50 mg 50 mg PO DAILY 01/19/25 Unknown History tablet,extended release 24 hr furosemide 20 mg tablet 20 mg PO DAILY 01/19/25 Unkn own History hydroxyzine HCl 25 mg tablet 50 mg PO BID 01/19/25 Unk nown History metoprolol tartrate 25 mg tablet 25 mg PO DAILY Unknown History oxcarbazepine 150 mg tablet 150 mg PO BID 01/19/25 Unk nown History pantoprazole 40 mg tablet,delayed 40 mg PO DAILY 01/19 Unknown History release quetiapine 25 mg tablet 25 - 50 mg PO QHS PRN PRN in somnia 01/19/25 Unknown History Allergy/AdvReac Type Severity Reaction Status Date / Time clindamycin AdvReac Other Verified 01/19/25 08:21 Penicillins AdvReac Other Verified 01/19/25 08:21 Sulfa (Sulfonamide AdvReac Other Verified 01/19/25 08:21 Antibiotics) Family History Father Hypertension CVA (cerebral vascular accident) Myocardial infarction Arthritis Mother Arthritis Cancer Sister Hypertension Arthritis Cancer Surgical History H/O thumb surgery H/O wrist surgery Social History household members: significant other Smoking Status: Former smoker alcohol intake: never what type of physical activity do you participate in: walking ROS Constitutional Constitutional: Denies anorexia, change in weight, fever(s), night sweats or weakness Eyes Eyes: Denies blurry vision, change in vision, discharge from eye(s) or eye pain Cardiovascular Cardiovascular: Denies chest pain, claudication, edema or palpitations Respiratory/Chest Respiratory/Chest: Denies cough, hemoptysis, shortness of breath at rest or shortness of breath with exertion Gastrointestinal Gastrointestinal: Reports abdominal pain, nausea and vomiting; Denies constipation, diarrhea, hematemesis, hematochezia or melena Genitourinary Genitourinary: Denies dysuria, hematuria, urinary frequency, urinary hesitancy, urinary incontinence or urinary urgency Musculoskeletal Musculoskeletal: Denies back pain, joint pain, joint stiffness, joint swelling, myalgias or neck pain Neurologic Neurologic: Denies abnormal gait, abnormal speech, dizziness, focal weakness, headache(s), loss of vision, numbness, other visual disturbances, paresthesias, syncope or tingling Psychiatric Psychiatric: Denies anxiety, cognitive impairment, depression, irritability, mood swings or suicidal ideation Endocrine Endocrinology: Denies change in body appearance, cold intolerance, excessive sweating, heat intolerance, polydipsia or polyuria Hematologic/Lymphatic Hematologic/Lymphatic: Denies none, anemia, easy bleeding, easy bruising or lymphadenopathy Allergic/Immunologic Allergic/Immunologic: Denies rhinitis, urticaria, eczemia or asthma Vital Signs Vital Signs Vital Signs: 01/19/25 08:19 01/19/25 10:19 01/19/25 12:00 Temperature 96.9 F L Temperature Source Temporal Pulse Rate 74 85 77 Respiratory Rate 16 18 18 Respiratory Effort Respiratory Depth Respiratory Pattern Blood Pressure 188/88 H 200/90 H 187/90 H Blood Pressure Mean 121 126 122 Blood Pressure Source Blood Pressure Position Blood Pressure Location Pulse Ox 100 96 99 Oxygen Delivery Method Room Air Room Air 01/19/25 12:31 01/19/25 16:50 01/19/25 16:54 Temperature 98.6 F 98.4 F Temperature Source Oral Pulse Rate 77 90 Respiratory Rate 18 16 Respiratory Effort Normal Non-Labored Respiratory Depth Normal Respiratory Pattern Normal Blood Pressure 187/90 H 164/72 H Blood Pressure Mean 122 102 Blood Pressure Source Blood Pressure Position Blood Pressure Location Pulse Ox 99 97 Oxygen Delivery Method Room Air Room Air 01/19/25 16:59 Temperature 98.4 F Temperature Source Oral Pulse Rate 90 Respiratory Rate 16 Respiratory Effort Respiratory Depth Respiratory Pattern Blood Pressure 164/72 H Blood Pressure Mean 102 Blood Pressure Source Monitor Blood Pressure Position Semi-Fowlers Blood Pressure Location Left Arm Pulse Ox 97 Oxygen Delivery Method Room Air Weight Weight: 83.3 kg Body Mass Index (BMI) 29.6 Physical Exam Const alert, oriented x3 and no apparent distress Constitutional Narrative: Patient appears uncomfortable due to nausea General Appearance: cooperative, well kempt and well developed Orientation / Consciousness: awake, oriented to person, oriented to place and oriented to time HEENT normocephalic, head/scalp atraumatic, hearing grossly normal bilaterally and moist oral mucous membranes Eyes PERRL, EOMs intact bilaterally and conjunctivae normal Neck supple, no JVD, thyroid normal and no carotid bruits General: trachea midline Resp normal respiratory effort, no retractions, no use of accessory muscles and clearto auscultation bilaterally Auscultation: Negative for rales, rhonchi or wheezes Cardio regular rate, regular rhythm, S1 normal heart sound, S2 normal heart sound, no murmurs, no rub and no gallops GI normal to inspection, nondistended, normoactive bowel sounds, soft to palpation,non-tender and non-distended Extremity no clubbing, cyanosis or edema Skin no rashes or lesions noted General Skin Exam: no breakdown Neuro oriented x3, CN's II-XII intact bilaterally, no focal motor deficits and no sensory deficits noted Sensorium / Orientation: awake and alert Speech: speech normal Psych affect normal Results Lab / Micro Data 01/19/25 10:13 01/19/25 10:13 Labs: Laboratory Results - last 24 hr 01/19/25 10:13: WBC 9.4, RBC 4.58, Hgb 13.5, Hct 39.0, MCV 85.2, MCH 29.5, MCHC 34.6, RDW Std Deviation 42.1, RDW Coeff of Jaimie 13.6, Plt Count 206, MPV 9.7, Immature Gran % (Auto) 0.200, Neut % (Auto) 84.9 H, Lymph % (Auto) 9.5 L, [place] %(Auto) 5.0, Eos % (Auto) 0.2, Baso % (Auto) 0.2, Absolute Neuts (auto) 7.9 H, Absolute Lymphs (auto) 0.89, Nucleated RBC % 0, Sodium 141, Potassium 3.7, Chloride 104, Carbon Dioxide 23.2, Anion Gap 13, BUN 16, Creatinine 0.76, Est GFR (MDRD) Non-Af 87, BUN/Creatinine Ratio 20.4 H, Glucose 130 H, Calcium 9.0, Total Bilirubin 0.56, AST 43 H, ALT 50 H, Alkaline Phosphatase 99, Troponin T High Sens 25 H, Total Protein 7.3, Albumin 4.6, Globulin 2.7, Albumin/Globulin Ratio 1.7, Lipase 464 H 01/19/25 10:44: Urine Color Yellow, Urine Clarity Clear, Urine pH 6.0, Ur Specific Almo 1.015, Urine Protein 30 H, Urine Glucose (UA) Normal, Urine Ketones 15 H, Urine Occult Blood 25 H, Urine Nitrite Negative, Urine Bilirubin Negative, Urine Urobilinogen Normal, Ur Leukocyte Esterase 500 H, Urine RBC 0 SEEN, Urine WBC 10-25 SEEN, Ur Squamous Epith Cells 0-5 SEEN, Urine Bacteria 0 SEEN, Urine Mucus 0 SEEN 01/19/25 14:29: Troponin T Hi Sens 2 Hr 23 H Imaging Radiology Impression Abdomen/Pelvis CT 01/19/25 09:15 IMPRESSION: Sludge or tiny gallstones within the gallbladder lumen. Correlation with ultrasound recommended. Punctate calcifications in the body of the pancreas. Status post hysterectomy. Sigmoid diverticulosis. Reading Location: [facility] Gallbladder Ultrasound 01/19/25 10:11 IMPRESSION: Sludge is seen within the gallbladder lumen. Reading Location: [facility] Assessment & Plan Assessment/Plan (1) Nausea and vomiting: PLAN: Plan 1. Uncontrolled nausea and vomiting-possibly secondary to chronic cannabis usage, patient will be admitted to [facility], she will be placed on telemetry in case IV Haldol is used for her nausea, she will be given IV fluids, she was placed on IV Reglan and Compazine. #2 history of gastroparesis-patient is not on any Reglan, I will add IV Reglan to her medications #3 coronary artery disease-this is stable at this time #4 heart murmur-this could be secondary to mitral regurgitation-patient knows that she has a heart murmur but does not know the origin of it. It may be necessary to contact her floor mechanic to see when her last echo was performed. Total clinical time spent by myself addressing the patient's medical issues, reviewing all of her data, and collaborating with her care team: 55-minute Charges/Coding Visit Charges Inpatient E&M: 73107 Init Hosp L2 01/19/251847 <Electronically signed by Franky Sy DO> Cosigner Signature (if applicable): CC: CLARITZA Power; Dr. Franky Sy DO~ Signed [facility] Work Phone: 1(709) 998-280208-20-2025 History and physical note [facility] Medical Records Department [address] [place] [address] H&P Exam - Hospitalist 01/19/251841 MR#: [id number] Acct: [id number] Name: ARIEL NGUYEN Rep #:[id number] : 1960 65 From: Franky Sy DO PCP: Sabine Power PA-C Status:ADM I N Location: [place] [address] HPI - General General Date of Admission: 01/19/25 Date of Service: 01/19/25 Chief Complaint: Persistent nausea and vomiting HPI Narrative ARIEL NGUYEN, is a 65 F who presents to the room at [facility] for persistent nausea and vomiting, this started 48 hours ago after she ate somevegetables with [place] dressing on it. Patient is a daily user of marijuana. Labs were obtained and were unremarkable, abdominal and pelvicCT showed sludge or tiny gallstones within the gallbladder lumen and punctate calcifications in thebody of the pancreas. Abdominal ultrasound reveals sludge within the gallbladder lumen. Patient wasgiven IV Haldol in the emergency room but still had nausea. Patient will be admitted to [facility] forpersistent nausea and vomiting-suspicious for cannabis hyperemesis syndrome (CHS). I have elected to place her on IV Reglan and give her IV Compazine initially fornausea and vomiting, it may be necessary to adjust these medications if she doesnot respond. [facility] History Right shoulder pain Home Medications ?Medication ?Instructions ?Recorded ?Last Taken ?Type levothyroxine 88 mcg capsule 88 mcg PO DAILY 10/07/23 Unknown History losartan 25 mg tablet 50 mg PO DAILY 10/07/23 Unkn own History alprazolam 0.25 mg tablet 0.25 mg PO DAILY PRN anxiety 01/19/25 Unknown History atorvastatin 80 mg tablet 80 mg PO QHS 01/19/25 Unknow n History clopidogrel 75 mg tablet 75 mg PO DAILY 01/19/25 Unkn own History desvenlafaxine succinate 50 mg 50 mg PO DAILY 01/19/25 Unknown History tablet,extended release 24 hr furosemide 20 mg tablet 20 mg PO DAILY 01/19/25 Unkn own History hydroxyzine HCl 25 mg tablet 50 mg PO BID 01/19/25 Unk nown History metoprolol tartrate 25 mg tablet 25 mg PO DAILY Unknown History oxcarbazepine 150 mg tablet 150 mg PO BID 01/19/25 Unk nown History pantoprazole 40 mg tablet,delayed 40 mg PO DAILY 01/19 Unknown History release quetiapine 25 mg tablet 25 - 50 mg PO QHS PRN PRN in somnia 01/19/25 Unknown History Allergy/AdvReac Type Severity Reaction Status Date / Time clindamycin AdvReac Other Verified 01/19/25 08:21 Penicillins AdvReac Other Verified 01/19/25 08:21 Sulfa (Sulfonamide AdvReac Other Verified 01/19/25 08:21 Antibiotics) Family History Father Hypertension CVA (cerebral vascular accident) Myocardial infarction Arthritis Mother Arthritis Cancer Sister Hypertension Arthritis Cancer Surgical History H/O thumb surgery H/O wrist surgery Social History household members: significant other Smoking Status: Former smoker alcohol intake: never what type of physical activity do you participate in: walking ROS Constitutional Constitutional: Denies anorexia, change in weight, fever(s), night sweats or weakness Eyes Eyes: Denies blurry vision, change in vision, discharge from eye(s) or eye pain Cardiovascular Cardiovascular: Denies chest pain, claudication, edema or palpitations Respiratory/Chest Respiratory/Chest: Denies cough, hemoptysis, shortness of breath at rest or shortness of breath with exertion Gastrointestinal Gastrointestinal: Reports abdominal pain, nausea and vomiting; Denies constipation, diarrhea, hematemesis, hematochezia or melena Genitourinary Genitourinary: Denies dysuria, hematuria, urinary frequency, urinary hesitancy, urinary incontinence or urinary urgency Musculoskeletal Musculoskeletal: Denies back pain, joint pain, joint stiffness, joint swelling, myalgias or neck pain Neurologic Neurologic: Denies abnormal gait, abnormal speech, dizziness, focal weakness, headache(s), loss of vision, numbness, other visual disturbances, paresthesias, syncope or tingling Psychiatric Psychiatric: Denies anxiety, cognitive impairment, depression, irritability, mood swings or suicidal ideation Endocrine Endocrinology: Denies change in body appearance, cold intolerance, excessive sweating, heat intolerance, polydipsia or polyuria Hematologic/Lymphatic Hematologic/Lymphatic: Denies none, anemia, easy bleeding, easy bruising or lymphadenopathy Allergic/Immunologic Allergic/Immunologic: Denies rhinitis, urticaria, eczemia or asthma Vital Signs Vital Signs Vital Signs: 01/19/25 08:19 01/19/25 10:19 01/19/25 12:00 Temperature 96.9 F L Temperature Source Temporal Pulse Rate 74 85 77 Respiratory Rate 16 18 18 Respiratory Effort Respiratory Depth Respiratory Pattern Blood Pressure 188/88 H 200/90 H 187/90 H Blood Pressure Mean 121 126 122 Blood Pressure Source Blood Pressure Position Blood Pressure Location Pulse Ox 100 96 99 Oxygen Delivery Method Room Air Room Air 01/19/25 12:31 01/19/25 16:50 01/19/25 16:54 Temperature 98.6 F 98.4 F Temperature Source Oral Pulse Rate 77 90 Respiratory Rate 18 16 Respiratory Effort Normal Non-Labored Respiratory Depth Normal Respiratory Pattern Normal Blood Pressure 187/90 H 164/72 H Blood Pressure Mean 122 102 Blood Pressure Source Blood Pressure Position Blood Pressure Location Pulse Ox 99 97 Oxygen Delivery Method Room Air Room Air 01/19/25 16:59 Temperature 98.4 F Temperature Source Oral Pulse Rate 90 Respiratory Rate 16 Respiratory Effort Respiratory Depth Respiratory Pattern Blood Pressure 164/72 H Blood Pressure Mean 102 Blood Pressure Source Monitor Blood Pressure Position Semi-Fowlers Blood Pressure Location Left Arm Pulse Ox 97 Oxygen Delivery Method Room Air Weight Weight: 83.3 kg Body Mass Index (BMI) 29.6 Physical Exam Const alert, oriented x3 and no apparent distress Constitutional Narrative: Patient appears uncomfortable due to nausea General Appearance: cooperative, well kempt and well developed Orientation / Consciousness: awake, oriented to person, oriented to place and oriented to time HEENT normocephalic, head/scalp atraumatic, hearing grossly normal bilaterally and moist oral mucous membranes Eyes PERRL, EOMs intact bilaterally and conjunctivae normal Neck supple, no JVD, thyroid normal and no carotid bruits General: trachea midline Resp normal respiratory effort, no retractions, no use of accessory muscles and clearto auscultation bilaterally Auscultation: Negative for rales, rhonchi or wheezes Cardio regular rate, regular rhythm, S1 normal heart sound, S2 normal heart sound, no murmurs, no rub and no gallops GI normal to inspection, nondistended, normoactive bowel sounds, soft to palpation,non-tender and non-distended Extremity no clubbing, cyanosis or edema Skin no rashes or lesions noted General Skin Exam: no breakdown Neuro oriented x3, CN's II-XII intact bilaterally, no focal motor deficits and no sensory deficits noted Sensorium / Orientation: awake and alert Speech: speech normal Psych affect normal Results Lab / Micro Data 01/19/25 10:13 01/19/25 10:13 Labs: Laboratory Results - last 24 hr 01/19/25 10:13: WBC 9.4, RBC 4.58, Hgb 13.5, Hct 39.0, MCV 85.2, MCH 29.5, MCHC 34.6, RDW Std Deviation 42.1, RDW Coeff of Jaimie 13.6, Plt Count 206, MPV 9.7, Immature Gran % (Auto) 0.200, Neut % (Auto) 84.9 H, Lymph % (Auto) 9.5 L, [place] %(Auto) 5.0, Eos % (Auto) 0.2, Baso % (Auto) 0.2, Absolute Neuts (auto) 7.9 H, Absolute Lymphs (auto) 0.89, Nucleated RBC % 0, Sodium 141, Potassium 3.7, Chloride 104, Carbon Dioxide 23.2, Anion Gap 13, BUN 16, Creatinine 0.76, Est GFR (MDRD) Non-Af 87, BUN/Creatinine Ratio 20.4 H, Glucose 130 H, Calcium 9.0, Total Bilirubin 0.56, AST 43 H, ALT 50 H, Alkaline Phosphatase 99, Troponin T High Sens 25 H, Total Protein 7.3, Albumin 4.6, Globulin 2.7, Albumin/Globulin Ratio 1.7, Lipase 464 H 01/19/25 10:44: Urine Color Yellow, Urine Clarity Clear, Urine pH 6.0, Ur Specific Almo 1.015, Urine Protein 30 H, Urine Glucose (UA) Normal, Urine Ketones 15 H, Urine Occult Blood 25 H, Urine Nitrite Negative, Urine Bilirubin Negative, Urine Urobilinogen Normal, Ur Leukocyte Esterase 500 H, Urine RBC 0 SEEN, Urine WBC 10-25 SEEN, Ur Squamous Epith Cells 0-5 SEEN, Urine Bacteria 0 SEEN, Urine Mucus 0 SEEN 01/19/25 14:29: Troponin T Hi Sens 2 Hr 23 H Imaging Radiology Impression Abdomen/Pelvis CT 01/19/25 09:15 IMPRESSION: Sludge or tiny gallstones within the gallbladder lumen. Correlation with ultrasound recommended. Punctate calcifications in the body of the pancreas. Status post hysterectomy. Sigmoid diverticulosis. Reading Location: [id number] Gallbladder Ultrasound 01/19/25 10:11 IMPRESSION: Sludge is seen within the gallbladder lumen. Reading Location: [id number] Assessment & Plan Assessment/Plan (1) Nausea and vomiting: PLAN: Plan 1. Uncontrolled nausea and vomiting-possibly secondary to chronic cannabis usage, patient will be admitted to [facility], she will be placed on telemetry in case IV Haldol is used for her nausea, she will be given IV fluids, she was placed on IV Reglan and Compazine. #2 history of gastroparesis-patient is not on any Reglan, I will add IV Reglan to her medications #3 coronary artery disease-this is stable at this time #4 heart murmur-this could be secondary to mitral regurgitation-patient knows that she has a heart murmur but does not know the origin of it. It may be necessary to contact her floor mechanic to see when her last echo was performed. Total clinical time spent by myself addressing the patient's medical issues, reviewing all of her data, and collaborating with her care team: 55-minute Charges/Coding Visit Charges Inpatient E&M: 20785 Init Hosp L2 01/19/25 1846 Cosigner Signature (if applicable): CC: CLARITZA Power; Dr. Franky Sy, DO~ Signed [facility]08-20-2025 Evaluation note* Diagnosis Onset Date Resolution Status Admit Date Acute heart failure with preserved ejection fraction (HFpEF) acute January 19 12:42pm Acute hypoxemic respiratory failure acute January 19 12:42pm Aortic valve stenosis, acquired acut e January 19, 2025 12:42pm Gastroparesis acute December 12:42pm Mitral valve insufficiency acute January 19, 2025 12:42pm Right shoulder pain acute 2024 12:42pm Transaminitis acute December 12:42pm Nausea and vomiting inactive 2024 12:42pm [facility] Work Phone: 1(900) 526-685608-20-2025 Discharge summary Author Mikki Hall [facility] Note Date/Time January 19, 2025 12 :28pm [facility] Medical Records Department [address] [place] [address] Emergency Department Summary 01/19/25 MR#: [id number] Acct: [id number] Name: ARIEL NGUYEN Rep #:[id number] : 1960 65 From: Mikki Hall MD PCP: Sabine Power PA-C Status:REG E R Location: ED HPI History of Present Illness Chief Complaint: Nausea/Vomiting Narrative Narrative: Patient is a 65-year-old female presenting to the emergency department for nausea and vomiting. Patient has a past medical history as below including gastroparesis and irritable bowel disease. Patient states that 2 days ago in the evening she developed nausea with multiple episodes of nonbloody, nonbiliousvomiting. States that she was here yesterday morning for the same complaint andwas given a few different medications and felt improved and was discharged home. She states that she has been trying Phenergan suppositories at home with no relief of the symptoms. States this feels like her gastroparesis. Reports thather bowel movements have been normal, no diarrhea or constipation. No blood. No dysuria or hematuria. No chest pain or shortness of breath. Patient does use marijuana products daily. [facility] Medical History Right shoulder pain Home Medications ?Medication ?Instructions ?Recorded ?Last Taken ?Type escitalopram oxalate 20 mg tablet 20 mg PO DAILY 10/06 Unknown History (Lexapro) hydroxychloroquine 200 mg tablet 200 mg PO DAILY 10/06 Unknown History (Plaquenil) hydroxyzine HCl 10 mg tablet 10 mg PO ONCE 10/07/23 Un known History levothyroxine 88 mcg capsule 88 mcg PO DAILY 10/07/23 Unknown History losartan 25 mg tablet 25 mg PO DAILY 10/07/23 Unkn own History promethazine 25 mg rectal 25 mg VT Q6H PRN nausea and 01/18/25 Unknown Rx suppository vomiting #12 ea Allergy/AdvReac Type Severity Reaction Status Date / Time clindamycin AdvReac Other Verified 01/19/25 08:21 Penicillins AdvReac Other Verified 01/19/25 08:21 Sulfa (Sulfonamide AdvReac Other Verified 01/19/25 08:21 Antibiotics) Family History Father Hypertension CVA (cerebral vascular accident) Myocardial infarction Arthritis Mother Arthritis Cancer Sister Hypertension Arthritis Cancer Surgical History H/O thumb surgery H/O wrist surgery Social History household members: significant other Smoking Status: Former smoker alcohol intake: never what type of physical activity do you participate in: walking ROS ROS ED ROS Narrative see HPI EXAM Physical Exam Narrative Exam Narrative: Vital signs: Reviewed General: Alert and orientedx3. No acute distress HEENT: Head is normocephalic and atraumatic, sinuses nontender, pupils equal round and reactive. Nares are patent. Oropharynx and throat exams normal. Neck: Supple without lymphadenopathy nontender Cardiovascular: Regular rate and rhythm, no murmurs. No rubs or gallops. Normal S1 and S2 Respiratory: Clear to auscultation bilaterally. No wheezes, rales, rhonchi Abdominal: Soft and mildly tender to palpation in epigastric region. Normal bowel sounds. No guarding or rebound. Nonsurgical abdomen Extremities: No tenderness. No bruising. Normal range of motion. Normal sensation. Skin: No rash or redness. Neurological: Cranial nerves II through XII are grossly intact. Normal strengthand sensation. Normal cerebellar function The rest of the physical exam is unremarkable Const Vital Signs: 01/19/25 08:19 01/19/25 10:19 Temperature 96.9 F L Temperature Source Temporal Pulse Rate 74 85 Respiratory Rate 16 18 Blood Pressure 188/88 H 200/90 H Blood Pressure Mean 121 126 Pulse Ox 100 96 Oxygen Delivery Method Room Air Room Air MDM MDM MDM Narrative Medical decision making narrative: Patient is a 65-year-old female presenting to the emergency department for nausea and vomiting. Patient was seen and examined. Vitals are stable. Patient resting in bed comfortably no acute distress. Differential includes but is not limited to: Gastroparesis, cannabis hyperemesissyndrome, gastroenteritis, pancreatitis, cholecystitis, diverticulitis Fluids started and patient given Haldol for symptomatic control. EKG shows normal sinus rhythm. There is some mild ST depression in V4 through V6, no reciprocal changes. No dysrhythmia. CBC with no leukocytosis and normal hemoglobin. CMP with mild transaminitis, otherwise no significant abnormalities. Lipase elevated at 464. Given the patient was just here yesterday with similar complaints, CT of the abdomen was obtained and shows sludge or tiny gallstones within the gallbladder lumen. Correlation with ultrasound recommended. Punctate calcifications in the body of the pancreas. Status post hysterectomy. Sigmoid diverticulosis. Gallbladder ultrasound obtained and showssludge but no pericholecystic fluid and no thickened gallbladder wall. Patient still having nausea and vomiting, Reglan given. I suspect the patient's nausea and vomiting is secondary to her cannabis hyperemesis and gastroparesis. Unable to tolerate PO even after the reglan. Will require admission for intractable nausea and vomiting with inability to tolerate p.o. Will admit to hospitalist. Clinical impression Intractable nausea and vomiting Pancreatitis Cannabis hyperemesis History & Record Review Discussion w/independent historian: Patient and Significant other Additional record(s) reviewed:: Prior ED visit Lab Data Attestation: I reviewed the patient's lab results. Labs: Laboratory Results - last 24 hr 01/19/25 01/19/25 10:13 10:44 WBC 9.4 RBC 4.58 Hgb 13.5 Hct 39.0 MCV 85.2 MCH 29.5 MCHC 34.6 RDW Std Deviation 42.1 RDW Coeff of Jaimie 13.6 Plt Count 206 MPV 9.7 Immature Gran % (Auto) 0.200 Neut % (Auto) 84.9 H Lymph % (Auto) 9.5 L [place] % (Auto) 5.0 Eos % (Auto) 0.2 Baso % (Auto) 0.2 Absolute Neuts (auto) 7.9 H Absolute Lymphs (auto) 0.89 Nucleated RBC % 0 Sodium 141 Potassium 3.7 Chloride 104 Carbon Dioxide 23.2 Anion Gap 13 BUN 16 Creatinine 0.76 Est GFR (MDRD) Non-Af 87 BUN/Creatinine Ratio 20.4 H Glucose 130 H Calcium 9.0 Total Bilirubin 0.56 AST 43 H ALT 50 H Alkaline Phosphatase 99 Troponin T High Sens 25 H Total Protein 7.3 Albumin 4.6 Globulin 2.7 Albumin/Globulin Ratio 1.7 Lipase 464 H Urine Color Yellow Urine Clarity Clear Urine pH 6.0 Ur Specific Almo 1.015 Urine Protein 30 H Urine Glucose (UA) Normal Urine Ketones 15 H Urine Occult Blood 25 H Urine Nitrite Negative Urine Bilirubin Negative Urine Urobilinogen Normal Ur Leukocyte Esterase 500 H Urine RBC 0 SEEN Urine WBC 10-25 SEEN Ur Squamous Epith Cells 0-5 SEEN Urine Bacteria 0 SEEN Urine Mucus 0 SEEN Radiography Diagnostic Testing: Clinical Impression(s) from Imaging Studies Abdomen/Pelvis CT 01/19/25 09:15 IMPRESSION: Sludge or tiny gallstones within the gallbladder lumen. Correlation with ultrasound recommended. Punctate calcifications in the body of the pancreas. Status post hysterectomy. Sigmoid diverticulosis. Reading Location: [facility] Gallbladder Ultrasound 01/19/25 10:11 IMPRESSION: Sludge is seen within the gallbladder lumen. Reading Location: [facility] Discharge Plan Triage Chief Complaint: Nausea/Vomiting ED Provider: Mikki Hall Dx/Rx/DC Orders Prescriptions: No Action escitalopram oxalate [Lexapro] 20 mg tablet 20 mg PO DAILY losartan 25 mg tablet 25 mg PO DAILY levothyroxine 88 mcg capsule 88 mcg PO DAILY hydroxyzine HCl 10 mg tablet 10 mg PO ONCE hydroxychloroquine [Plaquenil] 200 mg tablet 200 mg PO DAILY promethazine 25 mg suppository 25 mg VT Q6H PRN (Reason: nausea and vomiting) Qty: 12 0RF Primary Care Provider: Sabine Power Referrals: Sabine Power PA-C [Primary Care Provider] - Print Language: Macanese What to do if you have Problems For any increased pain, shortness of breath, bleeding, nausea or vomiting, chestpain, or any unexpected problems, contact your Primary Care Provider. Call [facility] ([phone]) or report to the closest Emergency Room. Call 911 if necessary. 01/19/25 1228 <Electronically signed by Mikki Hall MD> Cosigner Signature (if applicable): CC: CLARITZA Power ~ Signed [facility] Work Phone: 1(752) 475-740708-20-2025 Discharge summary [facility] Medical Records Department [address] [place] [address] Emergency Department Summary 01/19/25 MR#: [id number] Acct: [id number] Name: ARIEL NGUYEN Rep #:[id number] : 1960 65 From: Mikki Hall MD PCP: Sabine Power PA-C Status:REG E R Location: ED HPI History of Present Illness Chief Complaint: Nausea/Vomiting Narrative Narrative: Patient is a 65-year-old female presenting to the emergency department for nausea and vomiting. Patient has a past medical history as below including gastroparesis and irritable bowel disease. Patient states that 2 days ago in the evening she developed nausea with multiple episodes of nonbloody, non biliousvomiting. States that she was here yesterday morning for the same complaint andwas given a few different medications and felt improved and was discharged home. She states that she has been trying Phenergan suppositories at home with no relief of the symptoms. States this feels like her gastroparesis. Reports thather bowel movements have been normal, no diarrhea or constipation. No blood. No dysuria or hematuria. No chest pain or shortness of breath. Patient does use marijuana products daily. [facility] Medical History Right shoulder pain Home Medications ?Medication ?Instructions ?Recorded ?Last Taken ?Type escitalopram oxalate 20 mg tablet 20 mg PO DAILY 10/06 Unknown History (Lexapro) hydroxychloroquine 200 mg tablet 200 mg PO DAILY 10/06 Unknown History (Plaquenil) hydroxyzine HCl 10 mg tablet 10 mg PO ONCE 10/07/23 Un known History levothyroxine 88 mcg capsule 88 mcg PO DAILY 10/07/23 Unknown History losartan 25 mg tablet 25 mg PO DAILY 10/07/23 Unkn own History promethazine 25 mg rectal 25 mg VT Q6H PRN nausea and 01/18/25 Unknown Rx suppository vomiting #12 ea Allergy/AdvReac Type Severity Reaction Status Date / Time clindamycin AdvReac Other Verified 01/19/25 08:21 Penicillins AdvReac Other Verified 01/19/25 08:21 Sulfa (Sulfonamide AdvReac Other Verified 01/19/25 08:21 Antibiotics) Family History Father Hypertension CVA (cerebral vascular accident) Myocardial infarction Arthritis Mother Arthritis Cancer Sister Hypertension Arthritis Cancer Surgical History H/O thumb surgery H/O wrist surgery Social History household members: significant other Smoking Status: Former smoker alcohol intake: never what type of physical activity do you participate in: walking ROS ROS ED ROS Narrative see HPI EXAM Physical Exam Narrative Exam Narrative: Vital signs: Reviewed General: Alert and orientedx3. No acute distress HEENT: Head is normocephalic and atraumatic, sinuses nontender, pupils equal round and reactive. Nares are patent. Oropharynx and throat exams normal. Neck: Supple without lymphadenopathy nontender Cardiovascular: Regular rate and rhythm, no murmurs. No rubs or gallops. Normal S1 and S2 Respiratory: Clear to auscultation bilaterally. No wheezes, rales, rhonchi Abdominal: Soft and mildly tender to palpation in epigastric region. Normal bowel sounds. No guarding or rebound. Nonsurgical abdomen Extremities: No tenderness. No bruising. Normal range of motion. Normal sensation. Skin: No rash or redness. Neurological: Cranial nerves II through XII are grossly intact. Normal strengthand sensation. Normal cerebellar function The rest of the physical exam is unremarkable Const Vital Signs: 01/19/25 08:19 01/19/25 10:19 Temperature 96.9 F L Temperature Source Temporal Pulse Rate 74 85 Respiratory Rate 16 18 Blood Pressure 188/88 H 200/90 H Blood Pressure Mean 121 126 Pulse Ox 100 96 Oxygen Delivery Method Room Air Room Air MDM MDM MDM Narrative Medical decision making narrative: Patient is a 65-year-old female presenting to the emergency department for nausea and vomiting. Patient was seen and examined. Vitals are stable. Patient resting in bed comfortably no acute distress. Differential includes but is not limited to: Gastroparesis, cannabis hyperemesissyndrome, gastroenteritis, pancreatitis, cholecystitis, diverticulitis Fluids started and patient given Haldol for symptomatic control. EKG shows normal sinus rhythm. There is some mild ST depression in V4 through V6, no reciprocal changes. No dysrhythmia. CBC with no leukocytosis and normal hemoglobin. CMP with mild transaminitis, otherwise no significant abnormalities. Lipase elevated at 464. Given the patient was just here yesterday with similar complaints, CT ofthe abdomen was obtained and shows sludge or tiny gallstones within the gallbladder lumen. Correlation with ultrasound recommended. Punctate calcifications in the body of the pancreas. Status post hysterectomy. Sigmoid diverticulosis. Gallbladder ultrasound obtained and showssludge but no pericholecystic fluid and no thickened gallbladder wall. Patient still having nausea and vomiting, Reglan given. I suspect the patient's nausea and vomiting is secondary to her cannabis hyperemesis and gastroparesis. Unable to tolerate PO even after the reglan. Will require admission for intractable nausea and vomiting with inability to tolerate p.o. Will admit to hospitalist. Clinical impression Intractable nausea and vomiting Pancreatitis Cannabis hyperemesis History & Record Review Discussion w/independent historian: Patient and Significant other Additional record(s) reviewed:: Prior ED visit Lab Data Attestation: I reviewed the patient's lab results. Labs: Laboratory Results - last 24 hr 01/19/25 01/19/25 10:13 10:44 WBC 9.4 RBC 4.58 Hgb 13.5 Hct 39.0 MCV 85.2 MCH 29.5 MCHC 34.6 RDW Std Deviation 42.1 RDW Coeff of Jaimie 13.6 Plt Count 206 MPV 9.7 Immature Gran % (Auto) 0.200 Neut % (Auto) 84.9 H Lymph % (Auto) 9.5 L [place] % (Auto) 5.0 Eos % (Auto) 0.2 Baso % (Auto) 0.2 Absolute Neuts (auto) 7.9 H Absolute Lymphs (auto) 0.89 Nucleated RBC % 0 Sodium 141 Potassium 3.7 Chloride 104 Carbon Dioxide 23.2 Anion Gap 13 BUN 16 Creatinine 0.76 Est GFR (MDRD) Non-Af 87 BUN/Creatinine Ratio 20.4 H Glucose 130 H Calcium 9.0 Total Bilirubin 0.56 AST 43 H ALT 50 H Alkaline Phosphatase 99 Troponin T High Sens 25 H Total Protein 7.3 Albumin 4.6 Globulin 2.7 Albumin/Globulin Ratio 1.7 Lipase 464 H Urine Color Yellow Urine Clarity Clear Urine pH 6.0 Ur Specific Almo 1.015 Urine Protein 30 H Urine Glucose (UA) Normal Urine Ketones 15 H Urine Occult Blood 25 H Urine Nitrite Negative Urine Bilirubin Negative Urine Urobilinogen Normal Ur Leukocyte Esterase 500 H Urine RBC 0 SEEN Urine WBC 10-25 SEEN Ur Squamous Epith Cells 0-5 SEEN Urine Bacteria 0 SEEN Urine Mucus 0 SEEN Radiography Diagnostic Testing: Clinical Impression(s) from Imaging Studies Abdomen/Pelvis CT 01/19/25 09:15 IMPRESSION: Sludge or tiny gallstones within the gallbladder lumen. Correlation with ultrasound recommended. Punctate calcifications in the body of the pancreas. Status post hysterectomy. Sigmoid diverticulosis. Reading Location: [id number] Gallbladder Ultrasound 01/19/25 10:11 IMPRESSION: Sludge is seen within the gallbladder lumen. Reading Location: [id number] Discharge Plan Triage Chief Complaint: Nausea/Vomiting ED Provider: Mikki Hall Dx/Rx/DC Orders Prescriptions: No Action escitalopram oxalate [Lexapro] 20 mg tablet 20 mg PO DAILY losartan 25 mg tablet 25 mg PO DAILY levothyroxine 88 mcg capsule 88 mcg PO DAILY hydroxyzine HCl 10 mg tablet 10 mg PO ONCE hydroxychloroquine [Plaquenil] 200 mg tablet 200 mg PO DAILY promethazine 25 mg suppository 25 mg VT Q6H PRN (Reason: nausea and vomiting) Qty: 12 0RF Primary Care Provider: Sabine Power Referrals: Sabine Power PA-C [Primary Care Provider] - Print Language: Macanese What to do if you have Problems For any increased pain, shortness of breath, bleeding, nausea or vomiting, chestpain, or any unexpected problems, contact your Primary Care Provider. Call [facility] ([phone]) or report tothe closest Emergency Room. Call 911 if necessary. 01/19/25 1228 Cosigner Signature (if applicable): CC: CLARITZA Power ~ Signed [facility]08-20-2025 Radiology Diagnostic study note [facility] Imaging Services [address] [place] [id number] Gallbladder MR#: [id number] Acct: [id number] Name: ARIEL NGUYEN Rep #: [id number] 5 : 1960 F 65 From: James Torres MD PCP: Sabine Power PA-C Status: REG E R Study:Gallbladder Date of Exam: 01/19/25 Exam# [id number] Ordering Dr: Amos Hall MD PROCEDURE: GALLBLADDER 01/19/2025 REASON FOR EXAM: SLUDGE, ABDOMINAL PAIN COMPARISON: Prior CT scan done earlier in the day. FINDINGS: Liver: Grossly normal size and echotexture. Gallbladder: Sludge is seen within the gallbladder lumen. The gallbladder wall is not thickened. Common bile duct: Normal measuring 6.1 mm . Pancreas: Normal Other: Visualized portions of the right kidney are unremarkable. No right upperquadrant ascites. US/Gallbladder IMPRESSION: Sludge is seen within the gallbladder lumen. Reading Location: [place] CC: CLARITZA Power; Dr. Mikki Hall MD ~ Network Operations Analyst: Signed [facility]08-20-2025 Radiology Diagnostic study note [facility] Imaging Services [address] [place], [place] [id number] Abdomen/Pelvis without Cont MR#: [id number] Acct: [id number] Name: ARIEL NGUYEN Rep #: [id number] 5 : 1960 F 65 From: James Torres MD PCP: Sabine Power PA-C Status: REG E R Study:Abdomen/Pelvis without Cont Date of Exa m: 01/19/25 Exam# [id number] Ordering Dr: Amos Hall MD PROCEDURE: ABDOMEN/PELVIS WITHOUT CONT 01/19/2025 REASON FOR EXAM: 1 day history of nausea and vomiting. History of gastroparesis and diverticulitis. TECHNIQUE: ABDOMEN/PELVIS WITHOUT CONT Noncontrast technique limits evaluation of the abdominal and pelvic viscera. Coronal and Sagittal reconstruction series were provided. One or more dose reduction techniques were used (e.g., Automated exposure control, adjustment of the mA and/or kV according to patient size, use of iterative reconstruction technique). RADIATION DOSE SUMMARY: CTDlvol: 10.93 mGy DLP: 581.78 mGycm COMPARISON: None FINDINGS: Lung bases: Mild increased markings in the lingular segment of the left upper lobe suggestive of scarring. Prior mitral valve replacement. Mild coronary artery calcification. Liver: Normal size. No obvious mass. Gallbladder: Questionable sludge or tiny gallstones along the dependent portion of the gallbladder lumen. Correlation with ultrasound recommended. Spleen: Normal size. Pancreas: Punctate calcifications in the body of the pancreas. Adrenals: Unremarkable Kidneys: No urolithiasis. No hydronephrosis. Bladder: Unremarkable Reproductive Organs: Prior hysterectomy. Adnexal regions are unremarkable. Bowel: Colonic diverticulosis without diverticulitis. Appendix: The appendix is not identified. There is no inflammatory process identified in the right lower quadrant to suggest appendicitis. Lymph nodes: Unremarkable. Vasculature: Mild diffuse atherosclerotic calcifications are noted. Peritoneum / Retroperitoneum: Unremarkable Bones: Degenerative changes of the spine. CT/Abdomen/Pelvis without Cont IMPRESSION: Sludge or tiny gallstones within the gallbladder lumen. Correlation with ultrasound recommended. Punctate calcifications in the body of the pancreas. Status post hysterectomy. Sigmoid diverticulosis. Reading Location: [place] CC: CLARITZA Power; Dr. Mikki Hall MD ~ Network Operations Analyst: Signed [facility]08-19-2025 Discharge summary [facility] Medical Records Department [address] [place] [address] Emergency Department Summary 01/18/25 MR#: [id number] Acct: [id number] Name: ARIEL NGUYEN Rep #:[id number] : 1960 64 From: Ulysses Christian MD PCP: Sabine Power PA-C Status:REG E R Location: ED HPI History of Present Illness Chief Complaint: Nausea/Vomiting Narrative Narrative: 64-year-old female past medical history of of diverticulosis and gastroparesis/irritable bowel presents with nausea and vomiting that she has hadsince 430 yesterday evening. Her partner states that she made dinner last nightand used olive oil mixed with vegetables. They state that sometimes greasy foods can set off her gastroparesis. She has had multiple episodes of emesis and is now currently dry heaving. She states she is not having any abdominal pain, and she had a large bowel movement earlier, no diarrhea, no fevers or chills. She is extremely nauseated. She has ondansetron at home which is ineffective in treating her nausea. No exacerbating or alleviating factors. She states she has had to go to the emergency department previously when she lived in [place] and has received Haldol in the past. That has been helpful toher. She has not established with any primary care providerin the area as of yet. She presents mainly because of the nausea and dry heaving. She denies anychest pain or shortness of breath or other symptoms. [facility] Medical History Right shoulder pain Home Medications ?Medication ?Instructions ?Recorded ?Last Taken ?Type escitalopram oxalate 20 mg tablet 20 mg PO DAILY 10/06 Unknown History (Lexapro) hydroxychloroquine 200 mg tablet 200 mg PO DAILY 10/06 Unknown History (Plaquenil) hydroxyzine HCl 10 mg tablet 10 mg PO ONCE 10/07/23 Un known History levothyroxine 88 mcg capsule 88 mcg PO DAILY 10/07/23 Unknown History losartan 25 mg tablet 25 mg PO DAILY 10/07/23 Unkn own History promethazine 25 mg rectal 25 mg VT Q6H PRN nausea and 01/18/25 Unknown Rx suppository vomiting #12 ea Allergy/AdvReac Type Severity Reaction Status Date / Time clindamycin AdvReac Other Verified 01/18/25 07:49 Penicillins AdvReac Other Verified 01/18/25 07:49 Sulfa (Sulfonamide AdvReac Other Verified 01/18/25 07:49 Antibiotics) Family History Father Hypertension CVA (cerebral vascular accident) Myocardial infarction Arthritis Mother Arthritis Cancer Sister Hypertension Arthritis Cancer Surgical History H/O thumb surgery H/O wrist surgery Social History household members: significant other Smoking Status: Former smoker alcohol intake: never what type of physical activity do you participate in: walking ROS ROS ED ROS Narrative Review of systems positive for nausea, vomiting, and dry heaving. No fevers or chills, no problems with bowel movements, no diarrhea. No hematemesis. EXAM Physical Exam Narrative Exam Narrative: Afebrile. Vital signs noted. Nontoxic-appearing. Cardiovascular examination reveals a regular rate and rhythm. Positive murmur. Lungs clear to auscultation bilaterally. Abdomen is soft and nontender without guarding or rebound. Positive bowel sounds. Neurological examination nonfocal, nonlateralizing. Slightly tacky mucous membranes orally. Const Vital Signs: 01/18/25 07:47 01/18/25 10:09 01/18/25 12:46 Temperature 97.9 F 98.8 F Temperature Source Temporal Oral Pulse Rate 81 77 97 Respiratory Rate 18 14 Blood Pressure 185/77 H 182/71 H 158/73 H Blood Pressure Mean 113 108 101 Pulse Ox 100 97 Oxygen Delivery Method Room Air Room Air MDM MDM MDM Narrative Medical decision making narrative: The differential diagnosis includes but not limited to gastroparesis versus irritable bowel syndrome versus pancreatitis versus diverticulitis versus bowel obstruction. History and physical does not support bowel obstruction. I do notfeel that she needs any imaging currently. With concern for dehydration, she will be bolused normal saline and CBC, CMP, and lipase will be checked to help rule out pancreatitis. I reviewed her laboratory work and she has normal white count of 6.7 with hemoglobin 14.8, hematocrit 41.5, platelet count 248. CMP is significant for slightly elevated anion gap with BUN of 20 and creatinine 0.93. Glucose slightly elevated at 209. No think she has diabetic ketoacidosis. AST slightlyelevated at 39 with ALT at 41 and alk phos 120 which may be from her vomiting. Lipase is normal at32 so I doubt pancreatitis. She is not having abdominal pain so I do not feel that imaging is indicated. She states this feels more like her gastroparesis with continued nausea. Through shared decision making initially she was administered ondansetron intravenously which was not helpful. She was then administered 2 mg of Ativan which helped slightly. She was then administered Benadryl and chlorpromazine. Upon repeat examination, she has no dry heaving. She feels well enough to be discharged. I discussed with her other antiemetics that she only has ondansetron, and she would like Phenergan supp ositories. She was referred back to her primary care provider and to gastroenterology. She and her partner are agreeable to discharge and strict return instructions were reviewed. She is motivated for discharge. Dispositionis discharged home in stable condition. History & Record Review Discussion w/independent historian: Patient and Significant other (Partner) Additional record(s) reviewed:: No prior records (No prior ED visits, seen by orthopedics for shoulder pain.) Lab Data Attestation: I reviewed the patient's lab results. Labs: Laboratory Results - last 24 hr 01/18/25 08:22 WBC 6.7 RBC 5.02 Hgb 14.8 Hct 41.5 MCV 82.7 MCH 29.5 MCHC 35.7 RDW Std Deviation 39.6 RDW Coeff of Jaimie 13.2 Plt Count 248 MPV 10.1 Immature Gran % (Auto) 0.500 Neut % (Auto) 89.8 H Lymph % (Auto) 6.9 L Assumption % (Auto) 2.6 Eos % (Auto) 0.0 Baso % (Auto) 0.2 Absolute Neuts (auto) 6.0 Absolute Lymphs (auto) 0.46 L Nucleated RBC % 0 Sodium 141 Potassium 4.0 Chloride 98 Carbon Dioxide 22.5 Anion Gap 20 H BUN 20 H Creatinine 0.93 Est GFR (MDRD) Non-Af 69 BUN/Creatinine Ratio 21.9 H Glucose 209 H Calcium 10.3 Total Bilirubin 0.43 AST 39 H ALT 41 H Alkaline Phosphatase 120 H Total Protein 8.3 Albumin 5.0 H Globulin 3.3 Albumin/Globulin Ratio 1.5 Lipase 32 Discharge Plan Triage Chief Complaint: Nausea/Vomiting ED Provider: Ulysses Christian Dx/Rx/DC Orders Clinical Impression: Nausea and vomiting, Gastroparesis Instructions: Gastroparesis, ED Vomiting (Adult) Prescriptions: New promethazine 25 mg suppository 25 mg VT Q6H PRN (Reason: nausea and vomiting) Qty: 12 0RF No Action escitalopram oxalate [Lexapro] 20 mg tablet 20 mg PO DAILY losartan 25 mg tablet 25 mg PO DAILY levothyroxine 88 mcg capsule 88 mcg PO DAILY hydroxyzine HCl 10 mg tablet 10 mg PO ONCE hydroxychloroquine [Plaquenil] 200 mg tablet 200 mg PO DAILY Primary Care Provider: Sabine Power Referrals: Tomas Marroquin DO [Med Staff - Active Staff] - As soon as possible Sabine Power PA-C [Primary Care Provider] - As soon as possible Activity Restrictions/Additional Instructions: Phenergan suppositories as directed. Return with abdominal pain, fever, new or worsening symptoms. Follow-up with gastroenterology as soon as possible. Print Language: Macanese Disposition Disposition: Home, Self Care What to do if you have Problems For any increased pain, shortness of breath, bleeding, nausea or vomiting, chestpain, or any unexpected problems, contact your Primary Care Provider. Call [facility] ([phone]) or report tothe closest Emergency Room. Call 911 if necessary. 01/18/25 1300 Cosigner Signature (if applicable): CC: CLARITZA Power ~ Signed [facility]08-15-2025 History of Present illness Narrative* Munira Pitts Mammo Tech - 01/14/2025 1:30 PM EDT Radiology Service Progress Note PATIENT NAME: Ariel Nguyen DATE OF SERVICE: January 14, 2025 TIME: 1:35 PM PATIENT IDENTITY VERIFICATION COMPLETED USING TWO (2) IDENTIFIERS: Name and Date of confirmedby patient verbally. FALL SCREENING: Has the patient had 2 falls in the last year or 1 fall with injury or currently using an Ambulatory Assistive Device (Walker, Cane, Wheelchair, Crutches, etc.)? No PATIENT GENDER DATA: Assigned female at . status: : No status:NO. PATIENT RELEVANT IMPLANT DATA REVIEWED: Not Applicable PATIENT PRESENTS WITH AN IMPLANTABLE OR ATTACHED PUSHCART PEDDLER: No RADIOLOGY DEPARTMENT: Mammography PERIPHERAL IV DATA: Not applicable SIGNED BY: Ronald Felder January 14, 2025 1:35 PM documented in this encounterUniversity Hospitals Health System08-15-2025 NoteHNO ID: [id number] Author: MUNIRA PITTS Mammo Tech Service: ? Author Type: Cull Grader Type: Progress Notes Filed: 01/14/2025 13:35 Note [...] PATIENT PRESENTS WITH AN IMPLANTABLE OR ATTACHED PUSHCART PEDDLER: No RADIOLOGY DEPARTMENT: Mammography PERIPHERAL IV DATA: Not applicable SIGNED BY: Ronald Felder January 14, 2025 1:35 [facility]08-15-2025 NoteHNO ID: [id number] Author: CARRILLO JACQUES MD Service: ? Author Type: Physician Type: Progress Notes Filed: 01/17/2025 20:15 Note Text: Subjective Ariel Nguyen is a 64 year old female here with significant other Catrachita. PCP Usha Loera MD, [facility], [place], [place] Patient presents with: Establish Care Ariel was here to establish care. She and her partner just moved back after living in [place] for years. She had a history of major depression without psychotic features, general anxiety disorder, PTSD, insomnia, and needed refills of her medications. She had been on [facility] alprazolam 0.25 mg as needed, which she had been decreasing the past few months to 1/2 tablet BID as needed. She needed to establish psychiatry care here. She had a NSTEMI in July, CABG x 3, and acute CHF in September. She established cardiology care with Dr. Love at [facility]. She had aortic and mitral valvular disease [...] by mouth three ti (more content not included)...[facility] 01-14-2025 History of Present illness Narrative* Carrillo Jacques MD - 01/14/2025 8:10 AM EDT Subjective Ariel Nguyen is a 64 year old female here with significant other Catrachita. PCP Usha Loera MD, [place], [place] Patient presents with: Establish Care Ariel was here to establish care. She and her partner just moved back after living in [place] for years.She had a history of major depression without psychotic features, general anxiety disorder, PTSD, insomnia, and needed refills of her medications. She had been on [facility] alpraz[facility]am 0.25 mg as needed, which she had been decreasing the past few months to 1/2 tablet BID as needed. She needed to establish psychiatry care here. She had a NSTEMI in July, CABG x 3, and acute CHF in September. She established cardiology care with at [facility]. She had aortic and mitral valvular disease [...] hyperemesis syndrome Chronic diastolic HF (heart failure) ([facility]) Chronic systolic HF (heart failure) ([facility]) 01/02/2025 Coronary artery disease 08/08/2024 Diverticulitis large [...] daily as needed for anxiety for up to30 days. QUEtiapine (SEROQUEL) 50 mg tablet Take 1 tablet by mouth daily at bedtime. polyethylene glycol 3350 (MIRALAX) 17 gram/dose powder Take 17 g by mouth once daily. Dissolve dosein 4 - 8 ounces of liquid and [...] kg (187 lb 9.8 oz) SpO2 94% BMI30.88 kg/m Physical Exam Constitutional: General: She is [...] made it for you to do your work,take care of things at home, or get [...] V45.81, ICD10: Z95.1 - Continue cardiology care, [facility]. 3. PTSD (post-traumatic stress disorder) - ICD9: [...] ICD10: I35.1 - Continue cardiology care. Carrillo Jacques MD documented in this encounterUniversity Hospitals Health System08-07-2025 NoteHNO ID: [id number] Author: JACQUELINE LOVE MD Service: ? Author Type: Physician Type: [...] Yes Headaches: No Heart, V[facility] Thor[facility] [place] Department of Cardiovascular Medicine VIRTUAL VIDEO VISIT ESTABLISHED OUTPATIENT VISIT SERVICE DATE: 01/06/2025 Patient: Ariel Nguyne SERVICE TIME: 4:06 PM : 1960 This is a virtual video visit. It required patient-provider interaction for the medical decision making as documented below. rAiel Nguyen has consented to this video encounter. I have communicated my name and active licensure. The patient's identity and physical location were verified at the time of this visit. Either the patient or their legal guest experience representative has been informed of the risks [...] 81 mg by mouth (more content not included)...[facility]08-07-2025 History of Present illness Narrative* Jacqueline Love MD - 01/06/2025 4:06 PM EDT Answers submitted by the patient for this [...] Yes Headaches: No Heart, Vascular & Thor[facility] [place] Department of Cardiovascular Medicine VIRTUAL VIDEO VISIT ESTABLISHED OUTPATIENT VISIT SERVICE DATE: 01/06/2025 Patient: Ariel Nguyen SERVICE TIME: 4:06 PM : 1960 This is a virtual video visit. It required patient-provider interaction for the medical decision making as documented below. Ariel Nguyen has consented to this video encounter. I have communicated my name and active licensure. The patient's identity and physical location wereverified at the time of this visit. Either the patient or their legal guest experience representative has been informed of the risks and benefits of -- and alternatives to -- treatment through a remote evaluation andconsents to proceed with the evaluation remotely. Ariel Nguyen is a 64 year old female seen for follow-up. CHIEF COMPLAINT The patient is a 64-year-old female with a history of heart failure, presenting for follow-up. The patient reports experiencing lightheadedness and heaviness in her arms and legs, describing thesensation as walking with concrete bricks. She notes [...] and has a ALEXIS scheduled for the 12th. HISTORY OF PRESENT ILLNESS PAST MEDICAL HISTORY [...] population = 50. Five points is a clinicallymeaningful difference.) Physical T-Score 42.3 Mental T-Score 36.3 ASSESSMENT: 64 year old female from [place], [place], accompanied by her partner. PMHx includes chronic diastolic HF, CAD, NSTEMI s/p CABGx3 08/12/2024 (KOCH-LAD, SVG-RI, SVG-OM), severe MR, HTN, RHONDA with CPAP Was there a cardiac hospitalization/ED visit in the past year: Yes: When and where: 10/09-10/11/2024 [facility], 08/08-08/16/2024 [facility] #s/p CABGx3 08/12/2024 (KOCH-LAD, SVG-RI, SVG-OM) [...] management and care of this patient. Jacqueline Love MD January 06, 2025 4:06 PM documented in this encounterUniversity Hospitals Health System07-30-2025 NoteHNO ID: [id number] Author: NORMA CH MA Service: ? Author Type: Informix Developer Type: Progress Notes Filed: 12/29/2024 15:55 Note Text: EVENT MONITOR DISPOSABLE PATCH INSTRUCTIONS Patient Name: Ariel Banda Nguyen [facility] Number: [id number] Skin prepped and cleansed with alcohol Patch secured to prepped area Monitor Activated Serial #: [id number] Patient Instructed: Prescribed order timeframe Bathing guidelines Usage of event button and diary documentation Return of monitor at the end of prescribed order Call with problems [phone] or [phone]. [phone] Patient expresses a good understanding of instructions Norma Ch [facility]07-30-2025 History of Present illness Narrative* Norma Ch MA - 12/29/2024 3:54 PM EDT EVENT MONITOR DISPOSABLE PATCH INSTRUCTIONS Patient Name: Ariel Nguyen [facility] Number: [id number] Skin prepped and cleansed with alcohol Patch secured to prepped area Monitor Activated Serial #: [id number] Patient Instructed: Prescribed order timeframe Bathing guidelines Usage of event button and diary documentation Return of monitor at the end of prescribed order Call with problems [phone] or [phone]. [phone] Patient expresses a good understanding of instructions Norma Ch MA documented in this encounterUniversity Hospitals Health System07-30-2025 NoteEducation (CARDMN) ARIEL NGUYEN ([id number]) 1960 F Date Time Provider Department 12/29/24 [...] mouth once daily. Encounter Status:Closed by NORMA CH on 12/29/24[facility] 12-29-2024 Instructions* Patient Instructions* Jacqueline Love MD - 12/29/2024 2:41 PM EDT -Will request echo and left heart catheterization from [facility] -Blood work today -Schedule TTE and ALEXIS -Virtual visit 1:30p next 01/06/25 -imaging consultation with Dr. Cole upcoming 03/01 -Ziopatch on J2-2 documented in this encounterUniversity Hospitals Health System07-30-2025 History of Present illness Narrative* Jacqueline Love MD - 12/29/2024 1:15 PM EDT Images from the original note were not included. Heart, Vascular [facility] [place] [facility] SECTION OF HEART FAILURE and CARDIAC TRANSPLANT MEDICINE OUTPATIENT VISIT DATE December 29, 2024 OUTPATIENT VISIT TYPE New Patient PRIMARY CARE PHYSICIAN: Sabine Power (Gio) [address] [place] [address] CHIEF COMPLAINT: Establish care Ariel Nguyen is a 64 year old female from [place], [place], accompanied by her partner. PMHx includes chronic diastolic HF, CAD, NSTEMI s/p CABGx3 08/12/2024 (KOCH-LAD, SVG-RI, SVG-OM), severe MR, HTN, RHONDA with CPAP Was there a cardiac hospitalization/ED visit in the past year: Yes: When and where: 10/09-10/11/2024 [facility], 08/08-08/16/2024 [facility] HF Nursing Assessment: Chest Pain: no [...] a 64-year-old female with a history of OK, status post-CABG, and mitral valve regurgitation, presenting for evaluation of dyspnea and mitral valve regurgitation. The patient experienced an OK in July while at [place], [place], and underwent a triple CABG at [facility]. During the procedure, the mitral valve was not addressed due to insufficient severity. Postoperatively, she required a second surgery to repair a leaking graft. She was discharged in September and has not been hospitalized since but has visited the ED multiple times for dyspnea.She reports episodes of AFib following surgery. She reports persistent dyspnea since the surgery, exacerbated by minimal exertion such as climbing eight steps, leading to lightheadedness and a sensation of pressure in her eyes and ears. She deniesorthopnea. She monitors her blood pressure daily, noting readings around 126/80 mmHg, with occasional elevations up to 156/93 mmHg in the mornings. She denies any history of diabetes. She experiences significant lower extremity edema if she misses her diuretic doses. She also reports abdominal distension and has a history of paracentesis post-surgery, which drained three liters offluid. She has not missed any doses of her diuretics since leaving the [facility]. She has a history of severe nausea and vomiting, which has improved since her cardiac surgery. She recently underwent a colonoscopy and endoscopy at [place], which were unremarkable. She denies any history of gastroparesis. She has a history of sleep apnea and uses a CPAP machine. She reports difficulty losing weight, currently weighing 188 lbs, and is taking Zepbound for weight management. She denies any history of diabetes or use of metformin. She is currently taking furosemide 40 mg daily and hydrochlorothiazide. She is not taking potassiumsupplements. PAST MEDICAL HISTORY Diagnosis Date Abdominal pain, [...] population = 50. Five points is a clinicallymeaningful difference.) Physical T-Score 42.3 Mental T-Score 36.3 [...] 4:02 PM (Final result) ECHO Outside Hospital: [facility] 10/10/2024 Left Ventricle: Size is normal. Findings [...] doppler echocardiogram was performed. ECHO Outside Hospital: [facility] 08/09/2024 The left ventricle is normal in [...] regurgitation. Mild tricuspid regurgitation. Mild pulmonary hypertension. [facility] Outside Hospital: [facility] 08/10/2024 Findings: Severe and complex coronary artery [...] stenosis. IMPRESSION: 64 year old female from [place], [place], accompanied by her partner. PMHx includes chronic diastolic HF, CAD, NSTEMI s/p CABGx3 08/12/2024 (KOCH-LAD, SVG-RI, SVG-OM), severe MR, HTN, RHONDA with CPAP Was there a cardiac hospitalization/ED visit in the past year: Yes: When and where: 10/09-10/11/2024 [facility], 08/08-08/16/2024 [facility] #s/p CABGx3 08/12/2024 (KOCH-LAD, SVG-RI, SVG-OM) [...] - losartan Dose titration in progress Beta Alyssa YES - metoprolol tartrate (short acting) Dose titration in progress Aldosterone antagonist NO To be addressed SGLT2i NO To be addressed Hydralazine/Isosorbide Dinitrate NO Not indicated Ivabradine NO Not indicated PLAN AND RECOMMENDATIONS: -Will request echo and left heart catheterization from [facility] -Blood work today -Schedule TTE and ALEXIS -Virtual visit 1:30p next 01/06/25 -imaging consultation with Dr. Cole upcoming 03/01 -Tyron on J2-2 I personally interviewed, confirmed and edited the above information as obtained by others I personally spent 65 minutes in total time involved in the management and care of this patient. Wediscussed natural history of disease, current treatment options, and future potential treatment options. We discussed diet, exercise, other non-medical management as above. Bettina Love MD [facility] Section Of Heart Failure and Cardiac Transplant Medicine Heart and Vascular [place] [facility] Desk J3-[address] [place] [address] documented in this encounterUniversity Hospitals Health System07-30-2025 NoteHNO ID: [id number] Author: JACQUELINE LOVE MD Service: ? Author Type: Physician Type: Progress Notes Filed: 01/02/2025 15:50 Note Text: Heart, Vascular and Thoracic [place] [facility] SECTION OF HEART FAILURE and CARDIAC TRANSPLANT MEDICINE OUTPATIENT VISIT DATE December 29, 2024 OUTPATIENT VISIT TYPE New Patient PRIMARY CARE PHYSICIAN: Sabine Power ([facility]) [address] [facility] [address] [place] [address] CHIEF COMPLAINT: Establish care Ariel Nguyen is a 64 year old female from [place], [place], accompanied by her partner. PMHx includes chronic diastolic HF, CAD, NSTEMI s/p CABGx3 08/12/2024 (KOCH-LAD, SVG-RI, SVG-OM), severe MR, HTN, RHONDA with CPAP Was there a cardiac hospitalization/ED visit in the past year: Yes: When and where: 10/09-10/11/2024 [facility], 08/08-08/16/2024 [facility] HF Nursing Assessment: Chest Pain: no [...] a 64-year-old female with a history of OK, status post-CABG, and mitral valve regurgitation, presenting for evaluation of dyspnea and mitral valve regurgitation. The patient experienced an OK in July while at [place], [place], and underwent a triple CABG at [facility]. During the procedure, the mitral valve [...] doses of her diuretics since leaving the [facility]. She has a history of severe nausea and vomiting, which has improved since her cardiac surgery. She recently underwent a colonoscopy and endoscopy at [place], which were unremarkable. She denies any history [...] by mouth once daily. (more content not included)...[facility]07-30-2025 NoteHNO ID: [id number] Author: NOAH MALLORY DO Service: ? Author Type: Physician Type: Procedures Filed: 01/27/2025 14:11 Note Text: Patient Name: Ariel Nguyen : 1960 Ordering Provider: JACQUELINE LOVE Indication: I50.33 Acute on chronic diastolic (congestive) heart failure Type of Monitor: Extended Monitoring-Zio Patch Enrollment Dates: 12/29/2024-01/11/2025 IRHYTHM FINDINGS: Patient had a min HR of 48 bpm, max HR of 167 bpm, and avg HR of 73 bpm. Predominant underlying rhythm was Sinus Rhythm. Bundle Branch Block/IVCD was present. 16 Supraventricular Tachycardia runs occurred, the run with the fastest interval lasting 8 beats with a max rate of 167 bpm, the longest lasting 7 beats with an avg rate of 105 bpm. Isolated SVEs were rare (<1.0%), SVE Couplets were rare (<1.0%), and SVE Triplets were rare (<1.0%). Isolated VEs were rare (<1.0%), and no VE Couplets or VE Triplets were present. Predominant rhythm sinus IVCD noted Sixteen episodes of SVT, longest 8 beats. Rare PAC and PVC Noah Mallory [facility] summary Author Ulysses Christian [facility] Note Date/Time January 18, 2025 1: 00pm [facility] Medical Records Department [address] [place] [address] Emergency Department Summary 01/18/25 MR#: [id number] Acct: [id number] Name: ARIEL NGUYEN Rep #:[id number] : 1960 64 From: Ulysses Christian MD PCP: Sabine Power PA-C Status:REG E R Location: ED HPI History of Present Illness Chief Complaint: Nausea/Vomiting Narrative Narrative: 64-year-old female past medical history of of diverticulosis and gastroparesis/irritable bowel presents with nausea and vomiting that she has hadsince 430 yesterday evening. Her partner states that she made dinner last nightand used olive oil mixed with vegetables. They state that sometimes greasy foods can set off her gastroparesis. She has had multiple episodes of emesis and is now currently dry heaving. She states she is not having any abdominal pain, and she had a large bowel movement earlier, no diarrhea, no fevers or chills. She is extremely nauseated. She has ondansetron at home which is ineffective in treating her nausea. No exacerbating or alleviating factors. She states she has had to go to the emergency department previously when she lived in [place] and has received Haldol in the past. That has been helpful toher. She has not established with any primary care provider in the area as of yet. She presents mainly because of the nausea and dry heaving. She denies anychest pain or shortness of breath or other symptoms. [facility] Medical History Right shoulder pain Home Medications ?Medication ?Instructions ?Recorded ?Last Taken ?Type escitalopram oxalate 20 mg tablet 20 mg PO DAILY 10/06 Unknown History (Lexapro) hydroxychloroquine 200 mg tablet 200 mg PO DAILY 10/06 Unknown History (Plaquenil) hydroxyzine HCl 10 mg tablet 10 mg PO ONCE 10/07/23 Un known History levothyroxine 88 mcg capsule 88 mcg PO DAILY 10/07/23 Unknown History losartan 25 mg tablet 25 mg PO DAILY 10/07/23 Unkn own History promethazine 25 mg rectal 25 mg VT Q6H PRN nausea and 01/18/25 Unknown Rx suppository vomiting #12 ea Allergy/AdvReac Type Severity Reaction Status Date / Time clindamycin AdvReac Other Verified 01/18/25 07:49 Penicillins AdvReac Other Verified 01/18/25 07:49 Sulfa (Sulfonamide AdvReac Other Verified 01/18/25 07:49 Antibiotics) Family History Father Hypertension CVA (cerebral vascular accident) Myocardial infarction Arthritis Mother Arthritis Cancer Sister Hypertension Arthritis Cancer Surgical History H/O thumb surgery H/O wrist surgery Social History household members: significant other Smoking Status: Former smoker alcohol intake: never what type of physical activity do you participate in: walking ROS ROS ED ROS Narrative Review of systems positive for nausea, vomiting, and dry heaving. No fevers or chills, no problems with bowel movements, no diarrhea. No hematemesis. EXAM Physical Exam Narrative Exam Narrative: Afebrile. Vital signs noted. Nontoxic-appearing. Cardiovascular examination reveals a regular rate and rhythm. Positive murmur. Lungs clear to auscultation bilaterally. Abdomen is soft and nontender without guarding or rebound. Positive bowel sounds. Neurological examination nonfocal, nonlateralizing. Slightly tacky mucous membranes orally. Const Vital Signs: 01/18/25 07:47 01/18/25 10:09 01/18/25 12:46 Temperature 97.9 F 98.8 F Temperature Source Temporal Oral Pulse Rate 81 77 97 Respiratory Rate 18 14 Blood Pressure 185/77 H 182/71 H 158/73 H Blood Pressure Mean 113 108 101 Pulse Ox 100 97 Oxygen Delivery Method Room Air Room Air MDM MDM MDM Narrative Medical decision making narrative: The differential diagnosis includes but not limited to gastroparesis versus irritable bowel syndrome versus pancreatitis versus diverticulitis versus bowel obstruction. History and physical does not support bowel obstruction. I do notfeel that she needs any imaging currently. With concern for dehydration, she will be bolused normal saline and CBC, CMP, and lipase will be checked to help rule out pancreatitis. I reviewed her laboratory work and she has normal white count of 6.7 with hemoglobin 14.8, hematocrit 41.5, platelet count 248. CMP is significant for slightly elevated anion gap with BUN of 20 and creatinine 0.93. Glucose slightly elevated at 209. No think she has diabetic ketoacidosis. AST slightlyelevated at 39 with ALT at 41 and alk phos 120 which may be from her vomiting. Lipase is normal at 32 so I doubt pancreatitis. She is not having abdominal pain so I do not feel that imaging is indicated. She states this feels more like her gastroparesis with continued nausea. Through shared decision making initially she was administered ondansetron intravenously which was not helpful. She was then administered 2 mg of Ativan which helped slightly. She was then administered Benadryl and chlorpromazine. Upon repeat examination, she has no dry heaving. She feels well enough to be discharged. I discussed with her other antiemetics that she only has ondansetron, and she would like Phenergan suppositories. She was referred back to her primary care provider and to gastroenterology. She and her partner are agreeable to discharge and strict return instructions were reviewed. She is motivated for discharge. Dispositionis discharged home in stable condition. History & Record Review Discussion w/independent historian: Patient and Significant other (Partner) Additional record(s) reviewed:: No prior records (No prior ED visits, seen by orthopedics for shoulder pain.) Lab Data Attestation: I reviewed the patient's lab results. Labs: Laboratory Results - last 24 hr 01/18/25 08:22 WBC 6.7 RBC 5.02 Hgb 14.8 Hct 41.5 MCV 82.7 MCH 29.5 MCHC 35.7 RDW Std Deviation 39.6 RDW Coeff of Jaimie 13.2 Plt Count 248 MPV 10.1 Immature Gran % (Auto) 0.500 Neut % (Auto) 89.8 H Lymph % (Auto) 6.9 L Assumption % (Auto) 2.6 Eos % (Auto) 0.0 Baso % (Auto) 0.2 Absolute Neuts (auto) 6.0 Absolute Lymphs (auto) 0.46 L Nucleated RBC % 0 Sodium 141 Potassium 4.0 Chloride 98 Carbon Dioxide 22.5 Anion Gap 20 H BUN 20 H Creatinine 0.93 Est GFR (MDRD) Non-Af 69 BUN/Creatinine Ratio 21.9 H Glucose 209 H Calcium 10.3 Total Bilirubin 0.43 AST 39 H ALT 41 H Alkaline Phosphatase 120 H Total Protein 8.3 Albumin 5.0 H Globulin 3.3 Albumin/Globulin Ratio 1.5 Lipase 32 Discharge Plan Triage Chief Complaint: Nausea/Vomiting ED Provider: Ulysses Christian Dx/Rx/DC Orders Clinical Impression: Nausea and vomiting, Gastroparesis Instructions: Gastroparesis, ED Vomiting (Adult) Prescriptions: New promethazine 25 mg suppository 25 mg VT Q6H PRN (Reason: nausea and vomiting) Qty: 12 0RF No Action escitalopram oxalate [Lexapro] 20 mg tablet 20 mg PO DAILY losartan 25 mg tablet 25 mg PO DAILY levothyroxine 88 mcg capsule 88 mcg PO DAILY hydroxyzine HCl 10 mg tablet 10 mg PO ONCE hydroxychloroquine [Plaquenil] 200 mg tablet 200 mg PO DAILY Primary Care Provider: Sabine Power Referrals: Tomas Marroquin DO [Med Staff - Active Staff] - As soon as possible Sabine Power PA-C [Primary Care Provider] - As soon as possible Activity Restrictions/Additional Instructions: Phenergan suppositories as directed. Return with abdominal pain, fever, new or worsening symptoms. Follow-up with gastroenterology as soon as possible. Print Language: Macanese Disposition Disposition: Home, Self Care What to do if you have Problems For any increased pain, shortness of breath, bleeding, nausea or vomiting, chestpain, or any unexpected problems, contact your Primary Care Provider. Call [facility] ([phone]) or report to the closest Emergency Room. Call 911 if necessary. 01/18/25 1300 <Electronically signed by Ulysses Christian MD> Cosigner Signature (if applicable): CC: CLARITZA Power ~ Signed [facility] Work Phone: Discharge summary Author Mikki Hall [facility] Note Date/Time January 19, 2025 12 :28pm [facility] Medical Records Department [address] [place] [address] Emergency Department Summary 01/19/25 MR#: [id number] Acct: [id number] Name: ARIEL NGUYEN Rep #:[id number] : 1960 65 From: Mikki Hall MD PCP: Sabine Power PA-C Status:REG E R Location: ED HPI History of Present Illness Chief Complaint: Nausea/Vomiting Narrative Narrative: Patient is a 65-year-old female presenting to the emergency department for nausea and vomiting. Patient has a past medical history as below including gastroparesis and irritable bowel disease. Patient states that 2 days ago in the evening she developed nausea with multiple episodes of nonbloody, nonbiliousvomiting. States that she was here yesterday morning for the same complaint andwas given a few different medications and felt improved and was discharged home. She states that she has been trying Phenergan suppositories at home with no relief of the symptoms. States this feels like her gastroparesis. Reports thather bowel movements have been normal, no diarrhea or constipation. No blood. No dysuria or hematuria. No chest pain or shortness of breath. Patient does use marijuana products daily. [facility] Medical History Right shoulder pain Home Medications ?Medication ?Instructions ?Recorded ?Last Taken ?Type escitalopram oxalate 20 mg tablet 20 mg PO DAILY 10/06 Unknown History (Lexapro) hydroxychloroquine 200 mg tablet 200 mg PO DAILY 10/06 Unknown History (Plaquenil) hydroxyzine HCl 10 mg tablet 10 mg PO ONCE 10/07/23 Un known History levothyroxine 88 mcg capsule 88 mcg PO DAILY 10/07/23 Unknown History losartan 25 mg tablet 25 mg PO DAILY 10/07/23 Unkn own History promethazine 25 mg rectal 25 mg VT Q6H PRN nausea and 01/18/25 Unknown Rx suppository vomiting #12 ea Allergy/AdvReac Type Severity Reaction Status Date / Time clindamycin AdvReac Other Verified 01/19/25 08:21 Penicillins AdvReac Other Verified 01/19/25 08:21 Sulfa (Sulfonamide AdvReac Other Verified 01/19/25 08:21 Antibiotics) Family History Father Hypertension CVA (cerebral vascular accident) Myocardial infarction Arthritis Mother Arthritis Cancer Sister Hypertension Arthritis Cancer Surgical History H/O thumb surgery H/O wrist surgery Social History household members: significant other Smoking Status: Former smoker alcohol intake: never what type of physical activity do you participate in: walking ROS ROS ED ROS Narrative see HPI EXAM Physical Exam Narrative Exam Narrative: Vital signs: Reviewed General: Alert and orientedx3. No acute distress HEENT: Head is normocephalic and atraumatic, sinuses nontender, pupils equal round and reactive. Nares are patent. Oropharynx and throat exams normal. Neck: Supple without lymphadenopathy nontender Cardiovascular: Regular rate and rhythm, no murmurs. No rubs or gallops. Normal S1 and S2 Respiratory: Clear to auscultation bilaterally. No wheezes, rales, rhonchi Abdominal: Soft and mildly tender to palpation in epigastric region. Normal bowel sounds. No guarding or rebound. Nonsurgical abdomen Extremities: No tenderness. No bruising. Normal range of motion. Normal sensation. Skin: No rash or redness. Neurological: Cranial nerves II through XII are grossly intact. Normal strengthand sensation. Normal cerebellar function The rest of the physical exam is unremarkable Const Vital Signs: 01/19/25 08:19 01/19/25 10:19 Temperature 96.9 F L Temperature Source Temporal Pulse Rate 74 85 Respiratory Rate 16 18 Blood Pressure 188/88 H 200/90 H Blood Pressure Mean 121 126 Pulse Ox 100 96 Oxygen Delivery Method Room Air Room Air MDM MDM MDM Narrative Medical decision making narrative: Patient is a 65-year-old female presenting to the emergency department for nausea and vomiting. Patient was seen and examined. Vitals are stable. Patient resting in bed comfortably no acute distress. Differential includes but is not limited to: Gastroparesis, cannabis hyperemesissyndrome, gastroenteritis, pancreatitis, cholecystitis, diverticulitis Fluids started and patient given Haldol for symptomatic control. EKG shows normal sinus rhythm. There is some mild ST depression in V4 through V6, no reciprocal changes. No dysrhythmia. CBC with no leukocytosis and normal hemoglobin. CMP with mild transaminitis, otherwise no significant abnormalities. Lipase elevated at 464. Given the patient was just here yesterday with similar complaints, CT of the abdomen was obtained and shows sludge or tiny gallstones within the gallbladder lumen. Correlation with ultrasound recommended. Punctate calcifications in the body of the pancreas. Status post hysterectomy. Sigmoid diverticulosis. Gallbladder ultrasound obtained and showssludge but no pericholecystic fluid and no thickened gallbladder wall. Patient still having nausea and vomiting, Reglan given. I suspect the patient's nausea and vomiting is secondary to her cannabis hyperemesis and gastroparesis. Unable to tolerate PO even after the reglan. Will require admission for intractable nausea and vomiting with inability to tolerate p.o. Will admit to hospitalist. Clinical impression Intractable nausea and vomiting Pancreatitis Cannabis hyperemesis History & Record Review Discussion w/independent historian: Patient and Significant other Additional record(s) reviewed:: Prior ED visit Lab Data Attestation: I reviewed the patient's lab results. Labs: Laboratory Results - last 24 hr 01/19/25 01/19/25 10:13 10:44 WBC 9.4 RBC 4.58 Hgb 13.5 Hct 39.0 MCV 85.2 MCH 29.5 MCHC 34.6 RDW Std Deviation 42.1 RDW Coeff of Jaimie 13.6 Plt Count 206 MPV 9.7 Immature Gran % (Auto) 0.200 Neut % (Auto) 84.9 H Lymph % (Auto) 9.5 L Assumption % (Auto) 5.0 Eos % (Auto) 0.2 Baso % (Auto) 0.2 Absolute Neuts (auto) 7.9 H Absolute Lymphs (auto) 0.89 Nucleated RBC % 0 Sodium 141 Potassium 3.7 Chloride 104 Carbon Dioxide 23.2 Anion Gap 13 BUN 16 Creatinine 0.76 Est GFR (MDRD) Non-Af 87 BUN/Creatinine Ratio 20.4 H Glucose 130 H Calcium 9.0 Total Bilirubin 0.56 AST 43 H ALT 50 H Alkaline Phosphatase 99 Troponin T High Sens 25 H Total Protein 7.3 Albumin 4.6 Globulin 2.7 Albumin/Globulin Ratio 1.7 Lipase 464 H Urine Color Yellow Urine Clarity Clear Urine pH 6.0 Ur Specific Almo 1.015 Urine Protein 30 H Urine Glucose (UA) Normal Urine Ketones 15 H Urine Occult Blood 25 H Urine Nitrite Negative Urine Bilirubin Negative Urine Urobilinogen Normal Ur Leukocyte Esterase 500 H Urine RBC 0 SEEN Urine WBC 10-25 SEEN Ur Squamous Epith Cells 0-5 SEEN Urine Bacteria 0 SEEN Urine Mucus 0 SEEN Radiography Diagnostic Testing: Clinical Impression(s) from Imaging Studies Abdomen/Pelvis CT 01/19/25 09:15 IMPRESSION: Sludge or tiny gallstones within the gallbladder lumen. Correlation with ultrasound recommended. Punctate calcifications in the body of the pancreas. Status post hysterectomy. Sigmoid diverticulosis. Reading Location: [id number] Gallbladder Ultrasound 01/19/25 10:11 IMPRESSION: Sludge is seen within the gallbladder lumen. Reading Location: [id number] Discharge Plan Triage Chief Complaint: Nausea/Vomiting ED Provider: Mikki Hall Dx/Rx/DC Orders Prescriptions: No Action escitalopram oxalate [Lexapro] 20 mg tablet 20 mg PO DAILY losartan 25 mg tablet 25 mg PO DAILY levothyroxine 88 mcg capsule 88 mcg PO DAILY hydroxyzine HCl 10 mg tablet 10 mg PO ONCE hydroxychloroquine [Plaquenil] 200 mg tablet 200 mg PO DAILY promethazine 25 mg suppository 25 mg VT Q6H PRN (Reason: nausea and vomiting) Qty: 12 0RF Primary Care Provider: Sabine Power Referrals: Sabine Power PA-C [Primary Care Provider] - Print Language: Macanese What to do if you have Problems For any increased pain, shortness of breath, bleeding, nausea or vomiting, chestpain, or any unexpected problems, contact your Primary Care Provider. Call [facility] ([phone]) or report to the closest Emergency Room. Call 911 if necessary. 01/19/25 1228 <Electronically signed by Mikki Hall MD> Cosigner Signature (if applicable): CC: CLARITZA Power ~ Signed [facility] Work Phone: Evaluation noteNo assessment information available [facility] Work Phone: Evaluation note* Diagnosis Chronic congestive heart failure, unspecified heart failure type (HCC)- Primary [facility]* Diagnosis Mitral valve insufficiency, unspecified etiology- Primary [facility]* Diagnosis Acute on chronic diastolic (congestive) heart failure (HCC)- Primary Chronic systolic HF (heart failure) (HCC) Chronic systolic heart failure Shortness of breath documented [facility] this encounter [facility]* Diagnosis Acute on chronic diastolic (congestive) heart failure (HCC)- Primary Chronic systolic HF (heart failure) (HCC) Chronic systolic heart failure Ischemic cardiomyopathy Other specified forms of chronic ischemic heart disease Primary hypertension Unspecified essential hypertension Shortness of breath [facility] this encounter [facility]* Diagnosis Acute on chronic diastolic (congestive) heart failure (HCC)- Primary Chronic systolic HF (heart failure) (HCC) Chronic systolic heart failure Ischemic cardiomyopathy Other specified forms of chronic ischemic heart disease Primary hypertension Unspecified essential hypertension documented [facility] this encounter [facility]* Diagnosis Encounter for screening mammogram for malignant neoplasm of breast Other screening mammogram documented in this encounter [facility]* Diagnosis Severe episode of recurrent major depressive disorder, without psychotic features ([facility])- Primary S/P CABG (coronary artery bypass graft) [...] Aortic valve disorders [facility] Dis[facility] instructionsAdditional Instructions Phenergan suppositories as directed. Return with abdominal pain, fever, new or worsening symptoms. Follow-up with gastroenterology as soon as possible.[facility] Work Phone: Hospital Discharge instructionsAdditional Instructions 1. Take Haldol as needed. If not needed, wean off of Reglan by decreasing 1 dose per day until not taking any. Once off reglan and doing well try off scopolamine patch. [facility]: [facility]: Reason for referral (narrative)* Transition of Care (Routine) - Authorized Specialty Diagnoses / Procedures Referred By Claudette gutierrez [facility] Jacqueline Love MD [address] [place] [address] Phone: tel: fax: [facility] [place] [address] [place] [address] Referral ID Status Reason Start Date Expiration Date Visits Requested Visits Authorized [id number] Authorized PCP Requested Referral 01/09/2025 01/09/2026 1 1 [facility]No reason for referral information availableWMiddletown Hospital Work Phone: Reason for visit Narrative* Diagnostic Procedure Only (Routine) - Closed Specialty Diagnoses / Procedures Referred By Claudette gutierrez Referred To Contact [facility] Diagnoses Encounter for screening mammogram for malignant neoplasm of breast Procedures AMELIA SCREENING W KELVIN SCREENING DIGITAL BREAST TOMOSYNTHESIS BI SCREENING MAMMOGRAPHY BI 2-VIEW BREAST INC CAD Carrillo Jacques MD [address] [place] [address] Phone: tel: fax: [facility] [address] [place] [phone] Referral ID Status Reason Start Date Expiration Date V isits Requested Visits Authorized [id number] Closed Auto-Generate d Referral 01/14/2025 02/13/2026 1 1 [facility] [facility] Summary Purpose Family History No Family History Records Found Relationship Condition Age at Onset Recorded Date/T tim father Hypertension Unknown Cerebrovascular accident (CVA) Unknown Myocardial infarction Unknown Arthritis Unknown mother Arthritis Unknown Malignant neoplasm Unknown sister Hypertension Unknown Advance Directives No Advanced Directives Records Found Advance Directive Response Recorded Date/ Time Do you have a Healthcare Power of Records Management Clerk? No January 18, 2025 8:24am Advance Directive Response Recorded Date/ Time Do you have a Healthcare Power of Records Management Clerk? No January 19, 2025 8:21am Do you have a Healthcare Power of Records Management Clerk? No January 18, 2025 8:24am Advance Directive Response Recorded Date/ Time Do you have a Healthcare Power of Records Management Clerk? No January 19, 2025 2:16pm Do you have a Healthcare Power of Records Management Clerk? No January 18, 2025 8:24am Chief Complaint and Reason for Visit Chief Complaint AVISE BOX Chief Complaint Admit Date n/v January 18, 2025 7: 46am Chief Complaint Admit Date n/v January 18, 2025 7: 46am n/v January 19, 2025 8: 18am Chief Complaint Admit Date n/v January 18, 2025 7: 46am INTRACTABLE NAUSEA AND VOMITING January 012024 12:42pm INTRACTABLE NAUSEA AND VOMITING January 012024 6:42pm INTRACTABLE NAUSEA AND VOMITING January 012024 6:40pm INTRACTABLE NAUSEA AND VOMITING January 012024 7:17am INTRACTABLE NAUSEA AND VOMITING January 012024 12:54am INTRACTABLE NAUSEA AND VOMITING January 012024 12:42pm INTRACTABLE NAUSEA AND VOMITING January 012024 6:03pm INTRACTABLE NAUSEA AND VOMITING January 012024 6:51pm INTRACTABLE NAUSEA AND VOMITING January 012024 1:27pm INTRACTABLE NAUSEA AND VOMITING January 012024 7:30am INTRACTABLE NAUSEA AND VOMITING January 012024 12:30pm Reason for Visit Admit Date Acute heart failure with pre served ejection fraction (HFpEF) January 19, 2025 12:42pm Acute hypoxemic respiratory failure Aug2024 12:42pm Aortic valve stenosis, acquired January 012024 12:42pm Gastroparesis January 19, 2025 12 :42pm Mitral valve insufficiency January 19, 2025 12:42pm Right shoulder pain January 19, 2025 12 :42pm Transaminitis January 19, 2025 12 :42pm Nausea and vomiting January 19, 2025 12 :42pm Additional Source Comments INFORMATION SOURCE (unrecogn ized section and content) DATE CREATED AUTHOR 11/20/2017 [facility] DATE CREATED AUTHOR AUTHOR'S ORGANIZ ATION 11/21/2017 [facility] DATE CREATED AUTHOR AUTHOR'S ORGANIZ ATION 03/17/2020 [facility] DATE CREATED AUTHOR AUTHOR'S ORGANIZ ATION 10/02/2020 [facility] DATE CREATED AUTHOR AUTHOR'S ORGANIZ ATION 11/04/2020 [facility] ([place]) DATE CREATED AUTHOR AUTHOR'S ORGANIZ ATION 10/14/2023 [facility]akrishnareymundo Nune[facility] DATE CREATED AUTHOR AUTHOR'S ORGANIZ ATION 01/28/2025 [facility] DATE CREATED AUTHOR AUTHOR'S ORGANIZ ATION 01/29/2025 [facility] Care Teams (unrecognized sec tion and content) Team Status: Active Member Role Status Dates Sabine BLANCO PA-C Primary Care Provider Active Team Status: Inactive Member Role Status Dates Sabine BLANCO PA-C Primary Care Provider Active Dr. Carmenza Nolan MD Attending Provider, Referring Provider Active Tobacco Classer Relationship Specialty Start Date End Date Sabine Power PA-C PCP - General Family Medicine 09/17/12 Tobacco Classer Relationship Specialty Start Date End Date Sabine Power PA-C PCP - General Family Medicine 09/17/12 Tobacco Classer Relationship Specialty Start Date End Date Sabine Power PA-C PCP - General Family Medicine 09/17/12 Tobacco Classer Relationship Specialty Start Date End Date Sabine Power PA-C PCP - General Family Medicine 09/17/12 Tobacco Classer Relationship Specialty Start Date End Date Carrillo Jacques MD [address] [place] [address] PCP - General Internal Medicine 01/14/25 Analilia Chan, CLINICAL AUDITOR.DANCE DIRECTOR [address] [place] [address] Internal Medicine 01/14/25 Tobacco Classer Relationship Specialty Start Date End Date Carrillo Jacques MD [address] [place], [place] [address] PCP - General Internal Medicine 01/14/25 Analilia Chan, CLINICAL AUDITOR.DANCE DIRECTOR [address] [place], [place] [id number] Internal Medicine 01/14/25 Tobacco Classer Relationship Specialty Start Date End Date Carrillo Jacques MD [address] [place], [place] [address] PCP - General Internal Medicine 01/14/25 Analilia Chan, CLINICAL AUDITOR.DANCE DIRECTOR [address] [place], [place] [address] Internal Medicine 01/14/25 Team Status: Active Member Role/Relationship Status Dates Sabine BLANCO PA-C Primary Care Provider Active Team Status: Inactive Member Role/Relationship Status Dates FRANCIS Fung-C Primary Care Provider Active Start: January 18, 2025 End: January 18, 2025 Ulysses Christian MD Emergency Provider Active Star t: January 18, 2025 End: January 18, 2025 Team Status: Inactive Member Role/Relationship Status Dates Sabine BLANCO PA-C Primary Care Provider Active Start: January 19, 2025 End: January 19, 2025 Dr. Mikki Hall MD Emergency Provider Active S tart: January 19, 2025 End: January 19, 2025 Tobacco Classer Relationship Specialty Start Date End Date Carrillo Jacques MD [address] [place], [place] [address] PCP - General Internal Medicine 01/14/25 Analilia Chan, CLINICAL AUDITOR.DANCE DIRECTOR [address] [place], [place] [id number] Internal Medicine 01/14/25 Analilia Chan, CLINICAL AUDITOR.DANCE DIRECTOR [address] [place] [address] [employer] Work[employer] Internal Medicine 01/17/25 Team Status: Inactive Member Role/Relationship Status Dates Sabine BLANCO PAPete Primary Care Provider Active Start: January 18, 2025 End: January 18, 2025 Ulysses Christian MD Attending Provider Active Star t: January 18, 2025 End: January 18, 2025 Ulysses Christian MD Emergency Provider Active Star t: January 18, 2025 End: January 18, 2025 Team Status: Inactive Member Role/Relationship Status Dates Sabine BLANCO PA-C Primary Care Provider Active Start: January 19, 2025 End: January 28, 2025 Dr. Mikki Hall MD Emergency Provider Active S tart: January 19, 2025 End: January 28, 2025 Dr. Franky Sy DO Admit Provider Active S tart: January 19, 2025 End: January 28, 2025 Dr. Franky Sy DO Other Provider Active S tart: January 19, 2025 End: January 28, 2025 Dr. Cathie Aldana DO Attending Provider Active S tart: January 19, 2025 End: January 28, 2025 Dr. John Casey MD Other Provider Active Sta rt: January 19, 2025 End: January 28, 2025 Dr. Tomas Marroquin , Other Provider Active St art: January 19, 2025 End: January 28, 2025 CHELE Andrade Other Provider Active Start : January 19, 2025 End: January 28, 2025 CHELE Cooper Other Provider Active St art: January 19, 2025 End: January 28, 2025 FRANCIS Weeks Other Provider Active Star t: January 19, 2025 End: January 28, 2025 Team Status: Active Member Role/Relationship Status Dates Sabine BLANCO PA-C Primary Care Provider Active Start: January 19, 2025 Dr. Mikki Hall MD Emergency Provider Active S tart: January 19, 2025 Dr. Franky Tereletsky , DO Admit Provider Active S tart: January 19, 2025 Dr. Franky Sy , DO Attending Provider Active Start: January 19, 2025 Dr. Franky Sy , DO Other Provider Active S tart: January 19, 2025 Team Status: Active Member Role/Relationship Status Dates Sabine Power PA, PA-C Primary Care Provider Active Start: 2025 Dr. Mikki Hall MD Emergency Provider Active S tart: 2025 Dr. Franky Sy , DO Admit Provider Active S tart: 2025 Dr. Franky Sy , DO Attending Provider Active Start: 2025 Dr. Franky Sy , DO Other Provider Active S tart: 2025 Team Status: Active Member Role/Relationship Status Dates Sabine [place]ilworth PA, PA-C Primary Care Provider Active Start: January 22, 2025 Dr. Mikki Hall MD Emergency Provider Active S tart: January 22, 2025 Dr. Franky Sy , DO Admit Provider Active S tart: January 22, 2025 Dr. Franky Sy , Attending Provider Active Start: January 22, 2025 Dr. Franky Sy , DO Other Provider Active S tart: January 22, 2025 Team Status: Active Member Role/Relationship Status Dates Sabine [place]worth PA, PA-C Primary Care Provider Active Start: January 23, 2025 Dr. Mikki Hall MD Emergency Provider Active S tart: January 23, 2025 Dr. Franky Sy , Admit Provider Active S tart: January 23, 2025 Dr. Franky Sy , DO Other Provider Active S tart: January 23, 2025 Dr. Meaghan Schmid MD Attending Provider Active Start: January 23, 2025 Team Status: Active Member Role/Relationship Status Dates Sabine [place]worth PA, PA-C Primary Care Provider Active Start: January 24, 2025 Dr. Mikki Hall MD Emergency Provider Active S tart: January 24, 2025 Dr. Franky Sy , DO Admit Provider Active S tart: January 24, 2025 Dr. Franky Sy , DO Attending Provider Active Start: January 24, 2025 Dr. Franky Sy , DO Other Provider Active S tart: January 24, 2025 Team Status: Active Member Role/Relationship Status Dates [facility] PA, PA-C Primary Care Provider Active Start: January 25, 2025 Dr. Rozina Ochoa MD Attending Provider Active Start: January 25, 2025 Team Status: Active Member Role/Relationship Status Dates Sabine [place]worth PA, PA-C Primary Care Provider Active Start: January 25, 2025 Dr. Mikki Hall MD Emergency Provider Active S tart: January 25, 2025 Dr. Franky Sy , DO Admit Provider Active S tart: January 25, 2025 Dr. Franky Sy , DO Other Provider Active S tart: January 25, 2025 Dr. Cathie Aldana , DO Other Provider Active Start : January 25, 2025 Dr. John Casey MD Other Provider Active Sta rt: January 25, 2025 Dr. Tomas Marroquin , Attending Provider Active Start: January 25, 2025 Dr. Tomas Marroquin , DO Other Provider Active St art: January 25, 2025 CHELE Andrade Other Provider Active Start : January 25, 2025 CHELE Cooper Other Provider Active St art: January 25, 2025 FRANCIS Weeks Other Provider Active Star t: January 25, 2025 Team Status: Active Member Role/Relationship Status Dates [facility] PA, PA-C Primary Care Provider Active Start: January 25, 2025 Dr. Mikki Hall MD Emergency Provider Active S tart: January 25, 2025 Dr. Franky Sy , DO Admit Provider Active S tart: January 25, 2025 Dr. Franky Sy , DO Other Provider Active S tart: January 25, 2025 Dr. Cathie Aldana , DO Attending Provider Active S tart: January 25, 2025 Dr. Cathie Aldana , DO Other Provider Active Start : January 25, 2025 Dr. John Casey MD Other Provider Active Sta rt: January 25, 2025 Dr. Tomas Marroquin , DO Other Provider Active St art: January 25, 2025 CHELE Andrade Other Provider Active Start : January 25, 2025 CHELE Cooper Other Provider Active St art: January 25, 2025 FRANCIS Weeks Other Provider Active Star t: January 25, 2025 Team Status: Active Member Role/Relationship Status Dates Sabine BLANCO PA-C Primary Care Provider Active Start: January 26, 2025 Dr. Mikki Hall MD Emergency Provider Active S tart: January 26, 2025 Dr. Franky Sy , DO Admit Provider Active S tart: January 26, 2025 Dr. Franky Sy , DO Other Provider Active S tart: January 26, 2025 Dr. Cathie Aldana , DO Attending Provider Active S tart: January 26, 2025 Dr. Cathie Aldana , DO Other Provider Active Start : January 26, 2025 Dr. John Casey MD Other Provider Active Sta rt: January 26, 2025 Dr. Tomas Marroquin , DO Other Provider Active St art: January 26, 2025 CHELE Andrade Other Provider Active Start : January 26, 2025 CHELE Cooper Other Provider Active St art: January 26, 2025 FRANCIS Weeks Other Provider Active Star t: January 26, 2025 Team Status: Active Member Role/Relationship Status Dates Sabine BLANCO PA-C Primary Care Provider Active Start: January 27, 2025 Dr. Mikki Hall MD Emergency Provider Active S tart: January 27, 2025 Dr. Franky Sy , DO Admit Provider Active S tart: January 27, 2025 Dr. Franky Sy , DO Other Provider Active S tart: January 27, 2025 Dr. Cathie Aldana , DO Attending Provider Active S tart: January 27, 2025 Dr. Cathie Aldana , Other Provider Active Start : January 27, 2025 Dr. John Casey MD Other Provider Active Sta rt: January 27, 2025 Dr. Tomas Marroquin , DO Other Provider Active St art: January 27, 2025 CHELE Andrade Other Provider Active Start : January 27, 2025 CHELE Cooper Other Provider Active St art: January 27, 2025 FRANCIS Weeks Other Provider Active Star t: January 27, 2025 Team Status: Active Member Role/Relationship Status Dates Sabine BLANCO PA-C Primary Care Provider Active Start: January 27, 2025 Dr. Mikki Hall MD Emergency Provider Active S tart: January 27, 2025 Dr. Franky Sy , DO Admit Provider Active S tart: January 27, 2025 Dr. Franky Sy , DO Other Provider Active S tart: January 27, 2025 Dr. Cathie Aldana , DO Other Provider Active Start : January 27, 2025 Dr. John Casey MD Other Provider Active Sta rt: January 27, 2025 Dr. Tomas Marroquin , DO Attending Provider Active Start: January 27, 2025 Dr. Tomas Marroquin , DO Other Provider Active St art: January 27, 2025 CHELE Andrade Other Provider Active Start : January 27, 2025 CHELE Cooper Other Provider Active St art: January 27, 2025 FRANCIS Weeks Other Provider Active Star t: January 27, 2025 Goals (unrecognized section and content) Goals may be documented in a n alternate sectionGoals may be documented in an alternate sectionGoals may be documented in an alternate section Source Comments (unrecognize d section and content) In the event this informatio n is protected by the Federal Confidentiality of Alcohol and Drug Abuse Patient Records regulations: The Federal rules restrict any use of the information to criminally investigate or prosecute any alcohol or drug abuse patient.[facility] the event this information is protected by the Federal Confidentiality of Alcohol and Drug Abuse Patient Records regulations: The Federal rules restrict any use of the information to criminally investigate or prosecute any alcohol or drug abuse patient.[facility] System[facility] the event this information is protected by the Federal Confidentiality of Alcohol and Drug Abuse Patient Records regulations: The Federal rules restrict any use of the information to criminally investigate or prosecute any alcohol or drug abuse patient.[facility] System[facility] the event this information is protected by the Federal Confidentiality of Alcohol and Drug Abuse Patient Records regulations: The Federal rules restrict any use of the information to criminally investigate or prosecute any alcohol or drug abuse patient.[facility] System[facility] the event this information is protected by the Federal Confidentiality of Alcohol and Drug Abuse Patient Records regulations: The Federal rules restrict any use of the information to criminally investigate or prosecute any alcohol or drug abuse patient.[facility] System[facility] the event this information is protected by the Federal Confidentiality of Alcohol and Drug Abuse Patient Records regulations: The Federal rules restrict any use of the information to criminally investigate or prosecute any alcohol or drug abuse patient.[facility] System[facility] the event this information is protected by the Federal Confidentiality of Alcohol and Drug Abuse Patient Records regulations: The Federal rules restrict any use of the information to criminally investigate or prosecute any alcohol or drug abuse patient.[facility] System[facility] the event this information is protected by the Federal Confidentiality of Alcohol and Drug Abuse Patient Records regulations: The Federal rules restrict any use of the information to criminally investigate or prosecute any alcohol or drug abuse patient.[facility] System[facility] the event this information is protected by the Federal Confidentiality of Alcohol and Drug Abuse Patient Records regulations: The Federal rules restrict any use of the information to criminally investigate or prosecute any alcohol or drug abuse patient.[facility] Reason for Visit (unrecogniz ed section and content) Reason Comments Event Zio patch Reason Comments New Patient Specialty Diagnoses / Procedures Referred By Contac t Referred To Contact Cardiology / CARDIOVASCULAR MEDICINE Diagnoses Chronic congestive heart failure, unspecified heart failure type (HCC) DX CONGESTIVE HEART FAILURE //TRIPLE BYPASS SURGERY 08/12/2024 //NEW PT //EKG //CALLER ARIEL Procedures OFFICE/OUTPATIENT NEW MODERATE MDM 45 MINUTES NEW CHF PATIENT Jacqueline Love MD [address] [place] [address] Phone: tel: fax: Jacqueline Love MD [address] [place] [address] Phone: tel: fax: Referral ID Status Reason Start Date Expiration Date Visits Requested Visits Authorized [id number] Closed OON Notification Letter Financial Clearance Required [...] BE BASED ON THE PRIMARY CLINICAL RECORDS. [employer] provides no warranty or guarantee of the accuracy or completeness of information in this document.
[2025-01-29] MEDS: 0.9% Normal Saline (1000mL) 1,000 ML 1000 ML IV (23:37)
--- NOTE | 2025-01-29 23:43 | EX.ED.DYSGE1 ---
HPI History of Present Illness Chief Complaint: Nausea/Vomiting Narrative Narrative: Patient is a 65-year-old female presenting to the emergency department for nausea. Patient has a past medical history of gastroparesis (likely from marijuana use per GI), cannabis hyperemesis syndrome, heart failure, mitral valve insufficiency, aortic valve stenosis, transaminitis and diverticulosis. Patient was just admitted from 01/19 to 01/28 discharged yesterday for the same complaint. At this time she had an extensive workup for her intractable nausea and vomiting. Had an EGD done which showed esophagitis. Had CT abd, RUQ US and MRCP which was ultimately negative. Was discharged home on Haldol and Reglan. States that she was able to eat and drink yesterday when she was discharged and felt much better. She reports that this evening she ate dinner around 6 PM and developed nausea shortly after. She has not vomited. She denies any fever, chills, abdominal pain. She does report that she took her sleeping medication including Seroquel and Atarax and she is feeling tired after this. She tried a scopolamine patch as well as 1 dose of Zofran prior to arrival. Did not try Haldol or Reglan prior to arrival. She denies any marijuana use since last admission to the hospital on 01/19. It was reported in the triage note that her partner was concerned about slurring of the patient's speech that is intermittent. Patient denies any speech difficulties at this time. Denies any visual changes. Denies any numbness or weakness in her extremities. Denies headache. [facility] Medical History Coronary atherosclerosis Right shoulder pain Home Medications ?Medication ?Instructions ?Recorded ?Last Taken ?Type levothyroxine 88 mcg capsule 88 mcg PO DAILY thyroid 10/07/23 Unknown History alprazolam 0.25 mg tablet 0.25 mg PO DAILY PRN anxiety 01/19/25 Unknown History atorvastatin 80 mg tablet 80 mg PO QHS cholesterol 01/19/25 Unknown History clopidogrel 75 mg tablet 75 mg PO DAILY antiplatelet 01/19/25 Unknown History desvenlafaxine succinate 50 mg 50 mg PO DAILY mental health 01/19/25 Unknown History tablet,extended release 24 hr hydroxyzine HCl 25 mg tablet 50 mg PO BID allergies 01/19/25 Unknown History oxcarbazepine 150 mg tablet 150 mg PO BID seizures 01/19/25 Unknown History quetiapine 25 mg tablet 25 - 50 mg PO QHS PRN PRN insomnia 01/19/25 Unknown History apixaban 5 mg tablet (Eliquis) 5 mg PO BID #60 tabs 01/28/25 Unknown Rx furosemide 40 mg tablet 40 mg PO DAILY #30 tabs 01/28/25 Unknown Rx haloperidol 2 mg tablet 2 mg PO TID PRN nausea and 01/28/25 Unknown Rx vomiting #90 tabs metoclopramide HCl 5 mg tablet 5 mg PO Q8H #21 tabs 01/28/25 Unknown Rx (Reglan) metoprolol tartrate 50 mg tablet 50 mg PO BID #60 tabs 01/28/25 Unknown Rx pantoprazole 40 mg tablet,delayed 40 mg PO BID #60 tabs 01/28/25 Unknown Rx release scopolamine base 1 mg over 3 days 1 patch transdermal Q3D #10 ea 01/28/25 Unknown Rx transdermal patch Allergy/AdvReac Type Severity Reaction Status Date / Time clindamycin AdvReac Other Verified 01/29/25 22:37 Penicillins AdvReac Other Verified 01/29/25 22:37 Sulfa (Sulfonamide AdvReac Other Verified 01/29/25 22:37 Antibiotics) Family History Father Hypertension CVA (cerebral vascular accident) Myocardial infarction Arthritis Mother Arthritis Cancer Sister Hypertension Arthritis Cancer Surgical History Hx of CABG H/O thumb surgery H/O wrist surgery Social History household members: significant other Smoking Status: Former smoker alcohol intake: never what type of physical activity do you participate in: walking ROS ROS ED ROS Narrative see HPI EXAM Physical Exam Narrative Exam Narrative: Vital signs: Reviewed General: Alert and orientedx3. No acute distress HEENT: Head is normocephalic and atraumatic, sinuses nontender, pupils equal round and reactive. Nares are patent. Oropharynx and throat exams normal. Neck: Supple without lymphadenopathy nontender Cardiovascular: Regular rate and rhythm, no murmurs. No rubs or gallops. Normal S1 and S2 Respiratory: Clear to auscultation bilaterally. No wheezes, rales, rhonchi Abdominal: Soft and nontender. Normal bowel sounds. No guarding or rebound. Nonsurgical abdomen Extremities: No tenderness. No bruising. Normal range of motion. Normal sensation. Skin: No rash or redness. Neurological: Cranial nerves II through XII are grossly intact. Normal strength and sensation. Normal cerebellar function The rest of the physical exam is unremarkable Const Vital Signs: 01/29/25 22:37 01/30/25 01:00 01/30/25 03:27 Temperature 97.6 F L 98 F Temperature Source Temporal Pulse Rate 70 71 72 Respiratory Rate 20 H 18 18 Blood Pressure 143/72 H 188/85 H 184/85 H Blood Pressure Mean 95 119 118 Pulse Ox 94 100 97 Oxygen Delivery Method Room Air NIHSS NIHSS Initial: 1a Level of Consciousness: 0 1b LOC Questions (Score 2 if aphasic/stupor): 0 1c LOC Commands (Only score 1st attempt): 0 2 Best Gaze (If aphasic, use reflexive mvmts.): 0 3 Visual: 0 4 Facial Palsy: 0 5 Motor Arm Right (UN = amputation/fusion): 0 5 Motor Arm Left: 0 6 Motor Leg Right: 0 6 Motor Leg Left: 0 7 Limb ataxia (Only + if out of proportion): 0 8 Sensory (Aphasia/stupor=0 or 1, coma=2): 0 9 Best Language: 0 10 Dysarthria (mute, coma=2, intubated=UN): 0 11 Extinction and Inattention (only scored if +): 0 Total Score: 0 MDM MDM MDM Narrative Medical decision making narrative: Patient is a 65-year-old female presenting to the emergency department for nausea. Patient was seen and examined. Vitals are stable. Patient resting bed comfortably no acute distress. Inpatient notes were reviewed. There was an extensive workup for her gastroparesis. She had a CT of her abdomen as well as a gallbladder ultrasound and EGD done while she was here. She has no abdominal tenderness or pain on exam or history and has no vomiting. Feels similar to her gastroparesis symptoms in the past. Exacerbated by eating. Only tried Zofran at home. Will give Reglan here and reevaluate. Do not think it is indicated to repeat any imaging at this time with no abdominal pain. Fluids started and labs were obtained. In terms of the patient's reported intermittent slurring reported by her partner who is not at bedside here in the ED, patient has no slurring of her speech here. NIH is 0. She is sleepy on exam however did take her Seroquel and hydroxyzine prior to arrival in preparation for bedtime. Patient reevaluated at 12:25 PM, still experiencing nausea. Will try Haldol. Reevaluated shortly after haldol, still symptomatic. Half a mg ativan given. Reevaluated at 2:30 AM. Improved symptoms. Will trial po. Patient tolerated coca cola, no vomiting. Capsaicin cream was applied to chest abdomen back. Given the multiple medications used to control the patient's nausea and vomiting I did offer her admission for intractable nausea vomiting. She states she would like to try to go home. I encouraged her to take the medication she was prescribed yesterday upon discharge including Haldol and Compazine if needed for nausea vomiting and to return at any time if she cannot tolerate p.o. or her medications are not working at home. She is agreeable with the plan. Patient discharged from the Emergency Department. I do not feel that the patient's evaluation reveals any acute reason for admission at this time. I instructed them to either follow-up with their primary care physician or promptly return to the Emergency Department for reevaluation should symptoms worsen or new symptoms develop. I explained what symptoms would indicate the need to return to the emergency department. Shared decision making was used. The patient voiced understanding of the treatment plan and is agreeable with it. Clinical impression: Nausea History & Record Review Discussion w/independent historian: Patient Additional record(s) reviewed:: Prior inpatient record, Prior ED visit and Prior labs Lab Data Attestation: I reviewed the patient's lab results. Labs: Laboratory Results - last 24 hr 01/29/25 23:40 WBC 10.5 RBC 4.04 L Hgb 12.1 Hct 34.2 L MCV 84.7 MCH 30.0 MCHC 35.4 RDW Std Deviation 42.0 RDW Coeff of Jaimie 13.7 Plt Count 180 MPV 10.1 Immature Gran % (Auto) 0.400 Neut % (Auto) 83.7 H Lymph % (Auto) 10.0 L Traverse % (Auto) 3.9 Eos % (Auto) 1.3 Baso % (Auto) 0.7 Absolute Neuts (auto) 8.8 H Absolute Lymphs (auto) 1.05 Nucleated RBC % 0 Sodium 140 Potassium 4.1 Chloride 97 L Carbon Dioxide 28.7 Anion Gap 15 BUN 18 Creatinine 1.31 H Estim Creat Clear Calc 47.41 L Est GFR (MDRD) Non-Af 45 L BUN/Creatinine Ratio 14.0 Glucose 138 H Calcium 9.7 Total Bilirubin 0.35 AST 36 H ALT 59 H Alkaline Phosphatase 127 H Total Protein 6.5 Albumin 4.1 Globulin 2.5 Albumin/Globulin Ratio 1.6 Discharge Plan Triage Chief Complaint: Nausea/Vomiting ED Provider: Mikki Hall Dx/Rx/DC Orders Clinical Impression: Nausea & vomiting Instructions: Self-Care for Vomiting and Diarrhea, ED Cyclic Vomiting Syndrome Prescriptions: No Action levothyroxine 88 mcg capsule 88 mcg PO DAILY atorvastatin 80 mg tablet 80 mg PO QHS clopidogrel 75 mg tablet 75 mg PO DAILY alprazolam 0.25 mg tablet 0.25 mg PO DAILY PRN (Reason: anxiety) desvenlafaxine succinate 50 mg tablet extended release 24 hr 50 mg PO DAILY hydroxyzine HCl 25 mg tablet 50 mg PO BID quetiapine 25 mg tablet 25 - 50 mg PO QHS PRN PRN (Reason: insomnia) oxcarbazepine 150 mg tablet 150 mg PO BID furosemide 40 mg Tablet 40 mg PO DAILY Qty: 30 0RF Eliquis 5 mg Tablet 5 mg PO BID Qty: 60 0RF metoprolol tartrate 50 mg Tablet 50 mg PO BID Qty: 60 2RF scopolamine base 1 mg over 3 days Patch 3 Day 1 patch transdermal Q3D Qty: 10 0RF haloperidol 2 mg tablet 2 mg PO TID PRN (Reason: nausea and vomiting) Qty: 90 0RF metoclopramide HCl [Reglan] 5 mg tablet 5 mg PO Q8H Qty: 21 0RF pantoprazole 40 mg Tablet,Delayed Release (Dr/Ec) 40 mg PO BID Qty: 60 0RF Primary Care Provider: Sabine Power Referrals: Sabine Power PA-C [Primary Care Provider] - 2 Days Activity Restrictions/Additional Instructions: Take your haldol and reglan that was prescribed to you to help with your nausea and vomiting. Please abstain from marijuana use. Your evaluation in the Emergency Department did not reveal any acute reason for admission. However, I want to emphasize that you may be early in the course of a disease process or illness even if it is not present. For this reason you should follow-up within 24 hours for reevaluation with either your primary care physician or if necessary back here in the Emergency Department. You should return to the Emergency Department immediately if your symptoms worsen or new symptoms develop. Print Language: Estonian Disposition Disposition: Home, Self Care
--- NOTE | 2025-01-29 23:48 | EKG12_ITS ---
Test Reason : N/V Blood Pressure : */* mmHG Vent. Rate : 72 BPM Atrial Rate : 72 BPM P-R Int : 158 ms QRS Dur : 94 ms QT Int : 386 ms P-R-T Axes : 62 -11 -79 degrees QTcB Int : 422 ms Normal sinus rhythm Minimal voltage criteria for LVH, may be normal variant ( [place] product ) Nonspecific ST and T wave abnormality Abnormal ECG Confirmed by Malcolm Peñaloza ([id number]), photograph editor ANDREZ CRISTOBAL ([id number]) on 02/01/2025 10:34:11 AM Referred By: Confirmed By: Malcolm Peñaloza
[2025-01-30 00:19] LABS: Hematocrit 34.2 % (37-47); Hemoglobin 12.1 g/dL (12.0-15.0); Immature Granulocytes Count 0.040 X10^3/uL (0.0-0.0); Mean Corp Hgb Conc 35.4 g/dL (32-36); Mean Corpuscular Volume 84.7 fL (81-99); Mean Platelet Vol. 10.1 fl (6.2-12.0); NRBC Flagged by Analyzer 0 % (0-5); Platelet Count 180 K/mm3 (150-450); RBC Distribution Width CV 13.7 % (11.6-14.6); RBC Distribution Width SD 42.0 fl (35.1-43.9); Red Blood Count 4.04 M/mm3 (4.2-5.4); White Blood Count 10.5 K/mm3 (4.4-11.0)
[2025-01-30 00:45] LABS: AST(SGOT) 36 U/L (<=31); Alanine Aminotransfer ALT/SGPT 59 U/L (<=34); Albumin, Serum 4.1 g/dL (3.4-4.8); Alkaline Phosphatase 127 U/L (35-104); Anion Gap 15 (5-15); BUN 18 mg/dL (4-19); BUN/Creat Ratio 14.0 RATIO (10-20); Calcium,Total 9.7 mg/dL (7.6-11.0); Carbon Dioxide 28.7 mmol/L (21.0-32.0); Chloride 97 mmol/L (98-108); Estimated Creatinine Clearance 47.41 ml/min (50-250); Globulin 2.5 g/dL (2.2-4.2); Glucose 138 mg/dL (70-99); Potassium 4.1 mmol/L (3.3-5.1)
[2025-01-30 01:00] VITALS: BP 188/85; PULSE 71; RESP 18; O2SAT 100
[2025-01-30] MEDS: Capsaicin 0.025% 1 APPLIC Tube TOPICAL (03:14)
[2025-01-30 03:27] VITALS: BP 184/85; PULSE 72; RESP 18; TEMP 36.6; O2SAT 97
== END 2025-01-30 04:01 | disposition home or self-care (01) ==
PROVIDERS: Emergency Provider Student in an Organized Health Care Education/Training Program; PCP Family Medicine; Visit Provider Student in an Organized Health Care Education/Training Program
DX: R11.2 Nausea with vomiting, unspecified (principal); I25.10 Atherosclerotic heart disease of native coronary artery without angina pectoris; Z87.891 Personal history of nicotine dependence; Z95.1 Presence of aortocoronary bypass graft
CPT/HCPCS: 80053; 85025; 93005; 96361; 96374; 96375; 99284; A4216